=== PATIENT | male | born 1965 | race Caucasian/White ===

== ENCOUNTER 2020-01-23 10:26 | Emergency (ER) | payer MEDICARE, SELFPAY ==
[2020-01-23 10:47] VITALS: BP 151/115; PULSE 102; RESP 16; TEMP 37.2; O2SAT 96; BMI 32.4
--- NOTE | 2020-01-23 10:59 | XR_ITS ---
WS: [id number] CERVICAL SPINE TECHNIQUE: 3 views of the cervical spine CLINICAL INFORMATION: neck pain COMPARISON: None. FINDINGS: Mild cervical curve convex left. Straightening of the normal cervical lordosis. Disc space narrowing worse at C5-6 with anterior hypertrophic changes. Normal prevertebral soft tissues. Normal C1-C2 gay culation. XR/XR cervical spine 3V* [id number] IMPRESSION: Mild spondylitic changes with disc space narrowing worse at C5-6.
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
[2020-01-23 11:44] VITALS: BP 145/85; PULSE 70; RESP 16; O2SAT 97
== END 2020-01-23 11:45 | disposition home or self-care (01) ==
PROVIDERS: Emergency Provider Nurse Practitioner Family
DX: S13.4XXA Sprain of ligaments of cervical spine, initial encounter (principal); V89.2XXA Person injured in unspecified motor-vehicle accident, traffic, initial encounter; F17.210 Nicotine dependence, cigarettes, uncomplicated
CPT/HCPCS: 12345; 72040; 99281; 99282

== ENCOUNTER 2020-02-05 15:28 | Emergency (ER) | payer MEDICARE, SELFPAY ==
[2020-02-05 15:41] VITALS: BP 195/96; PULSE 106; RESP 15; TEMP 37.1; O2SAT 95; BMI 34.2
--- NOTE | 2020-02-05 16:38 | XR_ITS ---
WS: [id number] XR cervical spine 3V* [id number] REASON FOR EXAM: injury FINDINGS: Degenerate changes C5-C6 with anterior spurring seen. Similar findings were noted on a 19 2 020. The odontoid process was normal. The joints of Luschka C5 and 6 show hypertrophic changes. XR/XR cervical spine 3V* [id number] IMPRESSION: Degenerated disc changes with cervical spondylosis C5-C6.
--- NOTE | 2020-02-05 16:38 | XR_ITS ---
WS: [id number] XR thoracic spine 3V* [id number] REASON FOR EXAM: injury FINDINGS: Degenerates spurring anteriorly is noted in the middle thoracic spine. The disc spaces and the vertebral bodies appear to be normal. The cervicothoracic junction was normal. The lamina, pedicle, spinous processes are all straight. XR/XR thoracic spine 3V* [id number] IMPRESSION: Negative thoracic spine series.
--- NOTE | 2020-02-05 16:38 | XR_ITS ---
WS: [id number] XR lumbar spine 2-3V* [id number] REASON FOR EXAM: injury FINDINGS: Degenerate changes off the vertebral bodies of L5 and S1. The remaining disc spaces and vertebral bodies were normal. The lamina, pedicle, transverse processes, and spinous processes are all normal. The lumbosacral angle was normal. XR/XR lumbar spine 2-3V* [id number] IMPRESSION: Degenerate disc changes L5-S1.
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
[2020-02-05] MEDS: ketorolac 30 mg/mL INJ IM (16:57)
[2020-02-05 17:40] VITALS: BP 146/92; PULSE 71; RESP 19; O2SAT 95
== END 2020-02-05 17:40 | disposition home or self-care (01) ==
PROVIDERS: Emergency Provider Emergency Medicine
DX: M54.6 Pain in thoracic spine (principal); S39.012A Strain of muscle, fascia and tendon of lower back, initial encounter; X58.XXXA Exposure to other specified factors, initial encounter; F17.210 Nicotine dependence, cigarettes, uncomplicated
CPT/HCPCS: 12345; 72040; 72072; 72100; 96372; 99281; 99283; J1885

== ENCOUNTER 2021-01-07 11:10 | Outpatient (CLI) | payer MEDICARE, SELFPAY ==
--- NOTE | 2021-01-07 11:18 | XRR_ITS ---
PROCEDURE INFORMATION: Exam: XR Left Knee Exam date and time: 01/07/2021 12:05 PM Age: 55 years old Clinical indication: Pain; Knee; Left; Additional info: Pain in left knee TECHNIQUE: Imaging protocol: XR Left knee. Views: 3 views. COMPARISON: No relevant prior studies available. FINDINGS: Bones/joints: No fracture or other acute bony abnormalities are seen. There are no significant degenerative changes. Soft tissues: Normal. XR/XR knee LT 3V* [id number] IMPRESSION: No significant abnormality in the knee joint.
== END 2021-01-07 11:11 | disposition home or self-care (01) ==
LOC: RAD 11:16
PROVIDERS: Visit Provider Family Medicine
DX: M25.562 Pain in left knee (principal)
CPT/HCPCS: 73562

== ENCOUNTER 2021-01-09 06:49 | Outpatient (CLI) | payer MEDICARE, SELFPAY ==
--- NOTE | 2021-01-09 07:15 | MR_ITS ---
WS: [id number] MRI LEFT KNEE NONCONTRAST TECHNIQUE: Axial PD, coronal PD fat sat, coronal PD, sagittal PD, and sagittal PD fat-sat images obta ined. CLINICAL INFORMATION: L KNE PAIN, LAXITY, SEVERE MEDIAL PAIN COMPARISON: None. FINDINGS: Normal anatomic alignment. No acute fractures. Distal patella and quadriceps tendons are intact. Hype rtrophic patella. Normal ACL and PCL. Mild chronic thinning medial and lateral meniscus. Tiny suprapa tellar effusion. Joint space narrowing worse involving the medial joint compartment. Small amount of subchondral edema involving the medial femoral condyle. Moderate chondromalacia medial joint compartm ent. Small amount of edema along the superficial and deep fibers of the medial collateral ligament consist ent with grade 1-2 injury. MCL is intact. Normal lateral collateral ligament. Soft tissue edema invol ving the medial compartment joint soft tissues. Normal popliteal fossa.Mild chondromalacia patella. N o subchondral edema. Medial and lateral patellar retinacula appear intact. MR/MR knee LT wo con* [id number] IMPRESSION: 1. Normal ACL and PCL. 2. Moderate joint space narrowing medial joint compartment with chondromalacia . Edema involving the medial femoral condyle likely degenerative change or cont usion. 3. Grade 1-2 injury medial collateral ligament which appears intact. 4. Normal lateral collateral ligament. 5. Mild chondromalacia patella. 6. Soft tissue edema along the medial joint compartment soft tissues.
== END 2021-01-09 06:50 | disposition home or self-care (01) ==
LOC: RADSHAW 06:53
PROVIDERS: PCP Family Medicine; Visit Provider Family Medicine
DX: M25.562 Pain in left knee (principal); M22.42 Chondromalacia patellae, left knee; R60.0 Localized edema
CPT/HCPCS: 73721

== ENCOUNTER 2021-11-17 16:40 | Inpatient (IN) | payer MEDICARE, SELFPAY ==
[2021-11-17] VITALS (24 sets, daily range): BP systolic 123–170; BP diastolic 64–124; PULSE 88–106; RESP 12–24; TEMP 36.9–37.9; O2SAT 83–100; BMI 40.7; BMI 43.2
--- NOTE | 2021-11-17 16:45 | XRR_ITS ---
PROCEDURE INFORMATION: Exam: XR Chest Exam date and time: 11/17/2021 4:45 PM Age: 56 years old Clinical indication: Pain; Shortness of breath; Chest pressure; Additional info: Dyspnea TECHNIQUE: Imaging protocol: XR of the chest. Views: 1 view. COMPARISON: CR XR cervical spine 3V* [id number] 02/05/2020 5:15 PM FINDINGS: Limitations: Patient is rotated towards the right. Lungs: Unremarkable. No consolidation. Pleural spaces: Unremarkable. No pleural effusion. No pneumothorax. Heart/Mediastinum: Unremarkable. No cardiomegaly. Bones/joints: Unremarkable. XR/XR chest 1V portable [id number] IMPRESSION: No acute infiltrate
--- NOTE | 2021-11-17 16:47 | W.ED.GENADLT ---
HPI - General Adult General: Chief complaint: Shortness of Breath/Dyspnea Stated complaint: SOB X 2 DAY Time Seen by Provider: 11/17/21 16:43 History of Present Illness: CC: Shortness of breath, fever and generalized weakness HPI: This is a [56yo patient w/ hx of COPD presenting to the ED with malaise, generalized weakness, cough sputum production, N/V/D and fever at home x 3 days. Patient thinks that he was in contact with Covid positive patient of shopping. Since onset of symptoms, has had some shortness of breath and decreased PO intake. NO recent travel. Endorses no sick contacts around. Reports nausea/vomiting and diarrhea. Denies chest pain, diaphoresis, other GI or complaints. Denies any pleuritic chest pain, recent surgery/immobilization/travel, or hematemesis or hx of VTE in the past. EMS was called today, patient received DuoNeb and Solu-Medrol in route with symptomatic improvement in wheezing. Onset: 3 days ago Duration: ongoing for the last 3 days Location: home Severity: moderate Associated symptoms: Reports dyspnea and malaise; Deny chest pain, rash or palpitations Review of Systems Const: Reports: fever(s), body aches, malaise and other (+generalized weakness); Denies: chills Eyes: Denies: change in vision ENMT: Denies: mouth pain Card: Denies: chest pain or palpitations Resp: Reports: dyspnea and productive cough GI: Reports: diarrhea; Denies: abdominal pain : Denies: dysuria Musc: Denies: extremity pain Skin/Breast: Denies: rash or new lesions Neuro: Denies: weakness in extremities Psych: Reports: other (Normal mood) Juan/Lymph: Denies: easy bruising PFS ED PFSH: Medical History (Updated 11/17/21 @ 18:34 by Nahid Georges MD) COPD (chronic obstructive pulmonary disease) Hypothyroid Lumbar radiculopathy, chronic Surgical History (Updated 11/17/21 @ 18:34 by Nahid Georges MD) S/P laminectomy with spinal fusion Family History Father CAD (coronary artery disease) Social History (Updated 11/17/21 @ 18:34 by Nahid Georges MD) Smoking and tobacco status: current every day smoker Alcohol intake: current Alcohol intake frequency: 3 or more drinks per day Substance/Drug Use: current Substance/Drug use type: Marijuana Physical Exam Const: COMMON NORMALS: alert HENMT: COMMON NORMALS: atraumatic HEAD & SCALP: atraumatic MOUTH: moist mucous membranes not abnormal Eye: COMMON NORMALS: EOMs intact bilaterally and conjunctivae normal CONJUNCTIVA: Yes conjunctivae normal Neck/C-Spine: COMMON NORMALS: full ROM and supple Resp: COMMON NORMALS: normal respiratory effort OTHER: +mild expiratory wheezes b/l Cardio: COMMON NORMALS: regular rhythm RATE: tachycardic RHYTHM: regular rhythm GI: COMMON NORMALS: Soft to palpation and non-tender PALPATION: Yes Soft to palpation Extremity: COMMON NORMALS: full ROM Neuro: SENSORIUM/ORIENTATION: Yes alert MOTOR EXAM: No Abnormal motor strength present and Other motor observations present (no focal motor deficits) Psych: COMMON NORMALS: speech normal SPEECH: Yes normal speech MOOD & AFFECT: Yes euthymic mood Course Vital Signs: Vital signs: Vital Signs Temperature 98.8 F 11/18/21 04:00 Pulse Rate 84 11/18/21 09:55 Respiratory Rate 14 11/18/21 09:55 Blood Pressure 146/67 11/18/21 09:55 Pulse Oximetry 100 11/18/21 09:55 MDM - General Adult Medical Decision Making [56]yo patient w/ hx of COPD and smoking presenting to the ED with shortness of breath, cough, diarrhea, N/V, and generalized weakness. Given History, Exam, and Workup presentation most consistent with viral infection.Presentation not consistent with PE, COPD exacerbation, Pneumothorax, TB, Atypical ACS, Esophageal Rupture, Toxic Exposure, Foreign Body Airway Obstruction. Covid negative. Flu positive. Patient is noted to have sodium 119 without any prior baseline. Patient is AAO x3, not confused. Unclear whether this is chronic or acute. Patient admitted to hospital for sodium 119. Patient received DuoNeb and 6 mg of Decadron for presumed Covid coverage and COPD exacerbation. Patient reports symptomatic improvement in wheezing symptoms. Patient is noted to be satting at 90 to 93% on room air. Disposition: admission Lab Data : 11/18/21 05:48 11/18/21 09:51 Radiology Impressions Chest X-Ray 11/17/21 16:45 IMPRESSION: No acute infiltrate Chest CTA 11/17/21 18:38 IMPRESSION: 1. Negative for pulmonary embolus or airspace infiltrate. 2. Large amount of ascites in abdomen. 3. Coronary artery atherosclerotic calcifications. 4. Cholelithiasis 5. Subcutaneous edema over the abdomen. Abdomen/Pelvis CT 11/17/21 19:06 IMPRESSION: 1. Negative for focal acute inflammatory process in the abdomen or pelvis. 2. Coronary artery atherosclerotic calcifications. 3. Liver enlarged. 4. Spleen enlarged at 13.6 cm. 5. Cholelithiasis. 6. Moderate ascites in the abdomen. 7. Subcutaneous edema about the abdomen. Laboratory Results WBC 6.4 10^3/uL (4.0-10.0) 11/17/21 16:50 RBC 3.17 10^6/uL (4.1-5.3) L 11/17/21 16:50 Hgb 11.5 g/dL (11.7-16.6) L 11/17/21 16:50 Hct 32.0 % (42.0-52.0) L 11/17/21 16:50 MCV 100.9 fl (80-94) H 11/17/21 16:50 MCH 36.3 pg (28.0-34.0) H 11/17/21 16:50 MCHC 35.9 g/dL (30.0-36.0) 11/17/21 16:50 RDW 13.7 % (12.1-15.1) 11/17/21 16:50 Plt Count 127 10^3/cmm (130-400) L 11/17/21 16:50 MPV 10.0 fL (7.4-10.4) 11/17/21 16:50 Neut % (Auto) 67.7 % 11/17/21 16:50 Lymph % (Auto) 16.3 % 11/17/21 16:50 [place] % (Auto) 14.6 % 11/17/21 16:50 Eos % (Auto) 0.2 % 11/17/21 16:50 Baso % (Auto) 0.9 % 11/17/21 16:50 Neut # (Auto) 4.32 10^3/uL (1.8-7.7) 11/17/21 16:50 Lymph # (Auto) 1.0 10^3/uL (0.8-4.8) 11/17/21 16:50 [place] # (Auto) 0.9 10^3/uL (0.2-0.9) 11/17/21 16:50 Eos # (Auto) 0.0 10^3/uL (0.0-0.8) 11/17/21 16:50 Baso # (Auto) 0.1 10^3/uL (0.0-0.1) 11/17/21 16:50 Nucleated RBC % (auto) 0 % 11/17/21 16:50 Nucleated RBCs # 0.0 /100WBC 11/17/21 16:50 Sodium 119 mmol/L (136-145) L* 11/17/21 16:50 Potassium 4.1 mmol/L (3.5-5.1) 11/17/21 16:50 Chloride 84 mmol/L (98-107) L 11/17/21 16:50 Carbon Dioxide 27 mmol/L (22-29) 11/17/21 16:50 Anion Gap 12.1 (5-19) 11/17/21 16:50 BUN 4 mg/dL (6-20) L 11/17/21 16:50 Creatinine 0.5 mg/dL (0.7-1.2) L 11/17/21 16:50 GFR Calculation 172.6 mL/min (90-130) H 11/17/21 16:50 Glucose 143 mg/dL (65-115) H 11/17/21 16:50 Estimat Average Glucose 120 11/17/21 16:50 Hemoglobin A1c 5.8 % (4.0-6.0) 11/17/21 16:50 Calculated Osmolality 247 mOsm/kg (285-295) L 11/17/21 16:50 Calcium 7.8 mg/dL (8.5-10.5) L 11/17/21 16:50 Phosphorus 2.1 mg/dL (2.5-4.5) L 11/17/21 16:50 Magnesium 1.3 mg/dL (1.7-2.3) L 11/17/21 16:50 Total Bilirubin 4.0 mg/dL (0.15-1.2) H 11/17/21 16:50 Direct Bilirubin 1.50 mg/dL (0.00-0.30) H 11/17/21 16:50 GGT 99 U/L (8-61) H 11/17/21 16:50 AST 106 U/L (0-40) H 11/17/21 16:50 ALT 28 U/L (0-41) 11/17/21 16:50 Alkaline Phosphatase 133 IU/L (40-130) H 11/17/21 16:50 Troponin T Baseline 21 ng/L (0-15) H 11/17/21 16:50 C-Reactive Protein 10.8 mg/L (0.0-4.9) H 11/17/21 16:50 NT-Pro-B Natriuret Pep 249 pg/mL (0-125) H 11/17/21 16:50 Total Protein 8.7 g/dL (6.6-8.7) 11/17/21 16:50 Albumin 2.3 g/dL (3.5-5.2) L 11/17/21 16:50 Globulin 6.4 g/dL (1.3-4.6) H 11/17/21 16:50 Procalcitonin 0.12 ng/mL (0-0.5) 11/17/21 16:50 TSH 5.67 uIU/mL (0.27-4.20) H 11/17/21 16:50 Random Cortisol 22.29 ug/dL (2.47-19.5) H 11/17/21 16:50 Ethyl Alcohol < 10 mg/dL (0-10) 11/17/21 16:50 Coronavirus 229E (PCR) Not detected (NOT DETECT) 11/17/21 16:50 Hepatitis A IgM Ab Non-reactive (Nonreactive) 11/17/21 16:50 Hep Bs Antigen Non-reactive (Nonreactive) 11/17/21 16:50 Hep B Core IgM Ab Non-reactive (Nonreactive) 11/17/21 16:50 Hepatitis C Antibody Non-reactive (Nonreactive) 11/17/21 16:50 HIV 1&2 Ab & HIV 1 Ag Non-reactive (Non-Reactiv) 11/17/21 16:50 HIV 1&2 Antibody Non-reactive (Non-Reactiv) 11/17/21 16:50 SARS-CoV-2 (PCR) Not detected (NOT DETECT) 11/17/21 16:50 Imaging Data Other Imaging: Radiologist's impression: [facility] [address] [place] [address] XRay Report Signed Patient: Eliezer Reynolds Unit #: [id number] : 1965 Age/Sex: 56 / M ADM Date: 11/17/21 Loc: ER Room/Bed: Attending Dr: Ordering Provider/Ordering MD: Fatoumata Hope MD Date of Service: 11/17/21 Procedure(s): XR chest 1V portable [id number] Accession Number(s): [id number] Report Number: [id number] PROCEDURE INFORMATION: Exam: XR Chest Exam date and time: 11/17/2021 4:45 PM Age: 56 years old Clinical indication: Pain; Shortness of breath; Chest pressure; Additional info: Dyspnea TECHNIQUE: Imaging protocol: XR of the chest. Views: 1 view. COMPARISON: CR XR cervical spine 3V* [id number] 02/05/2020 5:15 PM FINDINGS: Limitations: Patient is rotated towards the right. Lungs: Unremarkable. No consolidation. Pleural spaces: Unremarkable. No pleural effusion. No pneumothorax. Heart/Mediastinum: Unremarkable. No cardiomegaly. Bones/joints: Unremarkable. XR/XR chest 1V portable [id number] IMPRESSION: No acute infiltrate ? Dictated By: Mike Mar Signed By: Mike Mar Signed Date/Time: 11/17/21 1715 DD/ 1645 Discharge Plan Discharge Patient Disposition: Home Clinical Impression: Acute dyspnea, Cough, Fever, Generalized weakness, Diarrhea, Hyponatremia Condition: Stable Discharge Diet: Advance as tolerated Discharge Activity: Increase activity as tolerated Coding Level of Care Code ED Maintenance Technician 2Nd Shift for Chg Fwd Exam Comprehensive
[2021-11-17] MEDS: sodium chloride 0.9% 1,000 ML 999 ML IV (17:04)
[2021-11-17] MEDS: lidocaine 2% viscous 15 ML, aluminum-mag hydrox-simethicon 30 ML, sucralfate oral liq 1 GM PO (17:04)
[2021-11-17] MEDS: acetaminophen 500 mg Tablet 1000 MG PO (17:06)
[2021-11-17 17:09] LABS: Basophils # 0.1 10^3/uL (0.0-0.1); Basophils % 0.9 %; Eosinophils % 0.2 %; Hemoglobin 11.5 g/dL (11.7-16.6); Lymphocytes % 16.3 %; Mean Corpuscular HGB Conc 35.9 g/dL (30.0-36.0); Mean Corpuscular Hemoglobin 36.3 pg (28.0-34.0); Mean Corpuscular Volume 100.9 fl (80-94); Monocytes # 0.9 10^3/uL (0.2-0.9); Monocytes % 14.6 %; Neutrophils # 4.32 10^3/uL (1.8-7.7); Neutrophils % 67.7 %; Nucleated Red Blood Cells % 0 %; Platelet Count 127 10^3/cmm (130-400); Red Blood Count 3.17 10^6/uL (4.1-5.3); Red Cell Distribution Width 13.7 % (12.1-15.1); White Blood Count 6.4 10^3/uL (4.0-10.0)
[2021-11-17] MEDS: ondansetron 2 mg/ML SDV 2 mL 4 MG IVP (17:09)
[2021-11-17] MEDS: dexamethasone 10 mg/mL INJ 6 MG IVP (17:20)
[2021-11-17] MEDS: ipratropium-albuterol 3 mL Neb INHALATION ×3 (17:33)
[2021-11-17 17:44] LABS: Anion Gap 12.1 (5-19); Blood Urea Nitrogen 4 mg/dL (6-20); Calcium 7.8 mg/dL (8.5-10.5); Carbon Dioxide 27 mmol/L (22-29); Chloride 84 mmol/L (98-107); Glomerular Filtration Rate 172.6 mL/min (90-130); Glucose 143 mg/dL (65-115); NT Pro B Type Natriuretic Pept 249 pg/mL (0-125); Osmolality Calculated 247 mOsm/kg (285-295); Potassium 4.1 mmol/L (3.5-5.1)
[2021-11-17 17:51] LABS: Sodium 119 mmol/L (136-145)
--- NOTE | 2021-11-17 17:59 | ECG_ITS ---
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 Measurements Intervals Waterproof Rate: 101 P: 56 KS: 196 QRS: 267 QRSD: 114 T: 51 QT: 371 QTc: 483 Interpretive Statements SINUS TACHYCARDIA RIGHT AXIS DEVIATION [QRS AXIS > 100] PATTERN CONSISTENT WITH PULMONARY DISEASE MODERATE INTRAVENTRICULAR CONDUCTION DELAY [110+ ms QRS DURATION] No previous ECG available for comparison Electronically Signed On 11-17-2021 20:59:25 CDT by Baltazar Michelle M.D. [email or web address]
[2021-11-17] MEDS: sodium chloride 0.9% 1,000 ML 100 ML IV (18:13)
--- NOTE | 2021-11-17 18:23 | PM.HP ---
Providers/Chief Complaint Primary Care Provider: Elizabeth Gagnon MD Chief Complaint: SOB X 2 DAY History of Present Illness Eliezer Reynolds is a 56 year old male with a past medical history of chronic back pain, status post laminectomy, hypothyroidism, history of COPD, current smoker, history of marijuana use, history of alcoholism, who presents [facility] for multiple complaints he tells me He tells me for the last 3 days, he suddenly has felt more short of breath, he does report hemoptysis, increase shortness of breath with exertion, bilateral from edema, increased abdominal distention tension, does report low-grade fevers, has not received COVID vaccine, has not received flu vaccine, no known sick contacts Denies a history of CHF, but does report increased shortness of breath, increased pallor extreme edema, no history of CAD, no chest pain reported Does report history of COPD, history of smoking, is not on inhalers at home, has never seen a health education coordinator Does report a history of alcoholism, at one point he reports drinking more than a sixpack a day, his last alcohol drink was this morning no, no history of alcohol withdrawal Does report a history of elevated blood sugars, he tells me that he does not have a history of diabetes, typically alcohol brings down his blood sugar Denies drinking too much fluid, denies any drug use, has a history of hypothyroidism, taking his medication as prescribed, does take Cymbalta Does report severe lower back pain, increased back pain with range of motion, has a history of back pain with laminectomy is on disability, he tells me that he is primary care physician refuses to give him pain medications Review of Systems Const: Denies: fever(s), chills, fatigue or malaise Eyes: Denies: change in vision or blurry vision ENMT: Denies: nasal congestion Card: Reports: edema; Denies: chest pain, palpitations, irregular heart rhythm or lightheadedness Resp: Reports: dyspnea and non-productive cough GI: Denies: nausea, vomiting, diarrhea, constipation, hematochezia or melena : Denies: flank pain, difficulty urinating, dysuria or urinary frequency Skin/Breast: Denies: rash Neuro: Denies: headache(s), dizziness or vertigo Endo: Denies: polyuria or polydipsia Medications/Allergies Home Medications Medication Instructions Recorded Confirmed Last Taken Type cyclobenzaprine 10 mg tablet 20 mg PO BEDTIME PRN 02/05/20 02/05/20 02/04/20 History duloxetine 30 mg capsule,delayed 30 mg PO DAILY 02/05/20 02/05/20 Unknown History release (Cymbalta) ibuprofen 200 mg tablet 800 mg PO QPM 02/05/20 02/05/20 02/04/20 History levothyroxine 50 mcg tablet 50 mcg PO DAILY 02/05/20 02/05/20 02/05/20 History methocarbamol 750 mg tablet 750 mg PO Q6H #30 tab 02/05/20 Unknown Rx (Robaxin-750) naproxen 500 mg tablet (Naprosyn) 500 mg PO BID PRN #20 tab 02/05/20 Unknown Rx acetaminophen 500 mg tablet 500 mg PO Q6H PRN 5 Days #20 tab 11/17/21 Unknown Rx albuterol sulfate 90 mcg/actuation 2 inh INHALATION Q4H PRN 5 Days 11/17/21 Unknown Rx aerosol inhaler #6.7 g calcium carbonate 1,000 1 tab PO TID PRN 7 Days #21 tab 11/17/21 Unknown Rx mg-simethicone 60 mg chewable tablet (Maalox Advanced) famotidine 20 mg tablet (Pepcid) 20 mg PO BID PRN 10 Days #20 tab 11/17/21 Unknown Rx ondansetron HCl 4 mg tablet 4 mg PO TID PRN 4 Days #12 tab 11/17/21 Unknown Rx (Zofran) Allergies Allergy/AdvReac Type Severity Reaction Status Date / Time Penicillins Allergy Unknown Verified 01/23/20 10:47 PFSH Acute PFSH: Medical History (Updated 11/17/21 @ 18:34 by Nahid Georges MD) COPD (chronic obstructive pulmonary disease) Hypothyroid Lumbar radiculopathy, chronic Surgical History (Updated 11/17/21 @ 18:34 by Nahid Georges MD) S/P laminectomy with spinal fusion Family History Father CAD (coronary artery disease) Social History (Updated 11/17/21 @ 18:34 by Nahid Georges MD) Smoking and tobacco status: current every day smoker Alcohol intake: current Alcohol intake frequency: 3 or more drinks per day Substance/Drug Use: current Substance/Drug use type: Marijuana Vitals/I&O/Wt Last Vital Signs Temp 98.5 F 11/17/21 17:13 Pulse 101 H 11/17/21 17:49 Resp 18 11/17/21 17:33 BP 151/124 11/17/21 17:13 Pulse Ox 92 11/17/21 17:33 Weight last 48 hrs Weight 117.934 kg Physical Exam Const: COMMON NORMALS: no acute distress and patient oriented x3 HENMT: COMMON NORMALS: normocephalic HEAD & SCALP: normocephalic Eye: COMMON NORMALS: Equal, round and reactive pupils present Neck/C-Spine: COMMON NORMALS: no JVD Lymph: LYMPHATIC: no lymphadenopathy noted Resp: COMMON NORMALS: normal respiratory effort, No retractions, No use of accessory muscles and clear to auscultation bilaterally AUSCULTATION: wheezes Cardio: COMMON NORMALS: no JVD, regular rate, regular rhythm, S1 normal heart sound present and S2 normal heart sound present RATE: regular rate RHYTHM: regular rhythm HEART SOUNDS: S1 normal heart sound present and S2 normal heart sound present GI: COMMON NORMALS: no masses INSPECTION: Yes Abdominal wall edema, Yes Anasarca, Yes abdominal distension and Yes Fluid wave present AUSCULTATION: Yes normoactive bowel sounds PALPATION: Yes Soft to palpation and Yes No hepatosplenomegaly present Extremity: COMMON NORMALS: capillary refill normal, no clubbing, cyanosis or edema and no calf tenderness NARRATIVE EXTREMITY EXAM: 2+ pitting edema bilateral extremities Neuro: COMMON NORMALS: patient oriented x3 Psych: COMMON NORMALS: mental status grossly normal Data : 11/17/21 16:50 11/17/21 16:50 A&P Assessment and plan (1) Hypoxia: Status: Acute (2) Hyponatremia: Status: Acute (3) Shortness of breath: Status: Acute (4) Alcoholism: Status: Acute (5) Fever: Status: Acute (6) Generalized weakness: Status: Acute Plan Hypoxia and shortness of breath -Etiology likely secondary to COPD exacerbation -But does have significant fluid overload, abdominal distention, abdominal wall anasarca -No focal pneumonia seen on chest x-ray -Does have complaints of hemoptysis, sudden onset of shortness of breath Plan: -Admit to ICU -Troponin series, BNP -CT angiogram to evaluate for pulmonary emboli -Cardiac echocardiogram -Solu-Medrol 125, followed by 40 every 8 hours, DuoNebs, budesonide, doxycycline -SCDs for DVT prophylaxis, will hold off on Lovenox as complaints of hemoptysis -Full code Hyponatremia -Likely multifactorial from chronic alcoholism, fluid overload, possible CHF? -Clinically does not look dehydrated, has bilateral extreme edema, anasarca, abdominal wall edema -Baseline serum sodium unknown -No headache, no blurry vision, no nausea, no vomiting Plan: -Serum sodium 119 -Patient has already received fluid boluses -Hold off on any intervention -Monitor serum sodium every 4 hours -Look for gradual improvement -We will consider hypertonic saline, but worried for fluid overload -TSH, mag, cortisol, urine studies Abdominal distention -Patient has abdominal distention, concerning for ascites -History of alcoholism -CT scan abdomen pelvis Alcoholism -Reports drinking more than 6 beers a day at a time -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, 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 -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02 Alcoholism F10.20 Fever R50.9 Generalized weakness R53.1
--- NOTE | 2021-11-17 18:38 | CTR_ITS ---
PROCEDURE INFORMATION: Exam: CTA Chest With Contrast Exam date and time: 11/17/2021 6:38 PM Age: 56 years old Clinical indication: Shortness of breath; Patient HX: SOB and weakness x 1 week TECHNIQUE: Imaging protocol: Computed tomographic angiography of the chest with contrast. 3D rendering (Not supervised by radiologist): MIP and/or 3D reconstructed images were created by the technologist. Radiation optimization: All CT scans at this facility use at least one of these dose optimization techniques: automated exposure control; mA and/or kV adjustment per patient size (includes targeted exams where dose is matched to clinical indication); or iterative reconstruction. Contrast material: OMNI 350; Contrast volume: 70 ml; Contrast route: INTRAVENOUS (IV); COMPARISON: CR (CHEST, ) 11/17/2021 3:53 PM RADIATION DOSE METRICS: Total DLP (mGy-cm): 565.77 FINDINGS: Pulmonary arteries: Normal. No pulmonary emboli. Aorta: Unremarkable. No aortic aneurysm. No aortic dissection. Lungs: Unremarkable. No consolidation. No masses. Pleural spaces: Unremarkable. No pneumothorax. No pleural effusion. Heart: Coronary artery atherosclerotic calcifications. Lymph nodes: Unremarkable. No enlarged lymph nodes. Gallbladder and bile ducts: Cholelithiasis Intraperitoneal space: Large amount of ascites in abdomen. Bones/joints: Unremarkable. No acute fracture. Soft tissues: Subcutaneous edema over the abdomen. CT/CT angio chest PE protcl [id number] IMPRESSION: 1. Negative for pulmonary embolus or airspace infiltrate. 2. Large amount of ascites in abdomen. 3. Coronary artery atherosclerotic calcifications. 4. Cholelithiasis 5. Subcutaneous edema over the abdomen.
[2021-11-17 18:39] LABS: Troponin(5th) Baseline 21 ng/L (0-15)
[2021-11-17 18:44] LABS: Magnesium 1.3 mg/dL (1.7-2.3); Phosphorus 2.1 mg/dL (2.5-4.5); Thyroid Stimulating Hormone 5.67 uIU/mL (0.27-4.20)
[2021-11-17 18:46] LABS: Alcohol Level < 10 mg/dL (0-10)
[2021-11-17 18:48] LABS: Alanine Aminotransferase 28 U/L (0-41); Albumin Level 2.3 g/dL (3.5-5.2); Alkaline Phosphatase 133 IU/L (40-130); Aspartate Amino Transferase 106 U/L (0-40); C Reactive Protein 10.8 mg/L (0.0-4.9); Gamma Glutamyl Transferase 99 U/L (8-61); Globulin 6.4 g/dL (1.3-4.6); Total Protein 8.7 g/dL (6.6-8.7)
[2021-11-17 18:49] LABS: Adenovirus Not Detected (NOT DETECT); Chlamydia Pneumoniae Not Detected (NOT DETECT); Coronavirus 229E,HKU1,NL63,OC4 Not Detected (NOT DETECT); Human Metapneumovirus Not Detected (NOT DETECT); Human Rhinovirus/Enterovirus Not Detected (NOT DETECT); Influenza A Detected (NOT DETECT); Influenza A H1 Not Detected (NOT DETECT); Influenza A H1-2009 Not Detected (NOT DETECT); Influenza A H3 Not Detected (NOT DETECT); Influenza B Not Detected (NOT DETECT); Mycoplasma Pneumoniae Not Detected (NOT DETECT); Parainfluenza Virus Type 1 Not Detected (NOT DETECT); Parainfluenza Virus Type 2 Not Detected (NOT DETECT); Parainfluenza Virus Type 3 Not Detected (NOT DETECT); Parainfluenza Virus Type 4 Not Detected (NOT DETECT); Respiratory Syncytial Virus A Not Detected (NOT DETECT); Respiratory Syncytial Virus B Not Detected (NOT DETECT); SARS-COV-2 Not Detected (NOT DETECT)
[2021-11-17 18:55] LABS: Procalcitonin 0.12 ng/mL (0-0.5)
--- NOTE | 2021-11-17 19:06 | CTR_ITS ---
PROCEDURE INFORMATION: Exam: CT Abdomen And Pelvis Without Contrast Exam date and time: 11/17/2021 7:06 PM Age: 56 years old Clinical indication: Patient HX: Abdominal bloating x1 week; Additional info: Abdominal distention TECHNIQUE: Imaging protocol: Computed tomography of the abdomen and pelvis without contrast. Radiation optimization: All CT scans at this facility use at least one of these dose optimization techniques: automated exposure control; mA and/or kV adjustment per patient size (includes targeted exams where dose is matched to clinical indication); or iterative reconstruction. COMPARISON: CR Hip 2-3v RIGHT wwo Pelv* [id number] 09/04/2018 11:12 AM RADIATION DOSE METRICS: Total DLP (mGy-cm): 1371.82 FINDINGS: Heart: Coronary artery atherosclerotic calcifications. Liver: Liver enlarged. Gallbladder and bile ducts: Cholelithiasis. Pancreas: Normal. No ductal dilation. Spleen: Spleen enlarged at 13.6 cm. Adrenal glands: Normal. No mass. Kidneys and ureters: Normal. No hydronephrosis. Stomach and bowel: Unremarkable. No obstruction. No mucosal thickening. Appendix: No evidence of appendicitis. Intraperitoneal space: Moderate ascites in the abdomen. Vasculature: Unremarkable. No abdominal aortic aneurysm. Lymph nodes: Unremarkable. No enlarged lymph nodes. Urinary bladder: Unremarkable as visualized. Reproductive: Unremarkable as visualized. Bones/joints: Unremarkable. No acute fracture. Soft tissues: Subcutaneous edema about the abdomen. CT/CT abdomen pelvis con [id number] IMPRESSION: 1. Negative for focal acute inflammatory process in the abdomen or pelvis. 2. Coronary artery atherosclerotic calcifications. 3. Liver enlarged. 4. Spleen enlarged at 13.6 cm. 5. Cholelithiasis. 6. Moderate ascites in the abdomen. 7. Subcutaneous edema about the abdomen.
--- NOTE | 2021-11-17 19:06 | USCV_ITS ---
Transthoracic Echo Eliezer Reynolds Age: 56 Gender: M : 1965 Exam Date: 11/17/2021 20:23 Ordering Phys: Nahid Georges MD Technologist: Randy Shaikh Exam Location: [facility] – [place] Indication: SoB BP: 154 / 78 HR: 85 Rhythm: Sinus Technical Quality: Adequate MEASUREMENTS (Male / Female) Normal Values 2D ECHO LV Diastolic Diameter PLAX 4.0 cm 4.2 - 5.9 / 3.9 - 5.3 cm LV Systolic Diameter PLAX 2.3 cm IVS Diastolic Thickness 1.2 cm 0.6 - 1.0 / 0.6 - 0.9 cm IVS Systolic Thickness 2.0 cm LVPW Diastolic Thickness 1.5 cm 0.6 - 1.0 / 0.6 - 0.9 cm LVPW Systolic Thickness 2.0 cm LVOT Diameter 2.5 cm LV Ejection Fraction 2D Teich 75.0 % LV Ejection Fraction MOD 2C 53.7 % LV Ejection Fraction 2C AL 53.6 % LA Diameter 3.0 cm LA Width 5.1 cm LA Height 6.3 cm RA Width 4.1 cm RA Height 4.7 cm Aorta at Sinotubular Diameter 2.5 cm M-MODE Aortic Annulus Diameter 2.9 cm LA Ao Ratio MM 1.2 DOPPLER AV Peak Velocity 159.5 cm/s LVOT Peak Velocity 82.0 cm/s AV Area Cont Eq vti 3.1 cm squared AV Area Cont Eq pk 2.4 cm squared MV Peak Velocity 104.0 cm/s MV Area PHT 5.0 cm squared Mitral E to A Ratio 0.8 MV E' Velocity 47.0 cm/s Mitral E to MV E' Ratio 6.5 Mitral E to LV E' Lateral Ratio 6.1 Mitral E to LV E' Septal Ratio 7.0 TR Peak Velocity 328.7 cm/s TR Peak Gradient 43.2 mmHg TR Mean Velocity 200.8 cm/s TR Mean Gradient 23.7 mmHg TR Velocity Time Integral 72.3 cm Right Atrial Pressure 10.0 mmHg Pulmonary Artery Systolic Pressu 53.2 mmHg PV Peak Velocity 139.0 cm/s RV Acceleration Time 0.2 s RV Ejection Time 0.4 s RV AcT/ET 0.6 FINDINGS Left Ventricle Normal left ventricular size. LV systolic function is normal with EF of 55-60%. No regional wall motion abnormalities. Grade 1 diastolic dysfunction Right Ventricle The right ventricle is dilated Right Atrium The right atrium is normal in size. Left Atrium The left atrium is dilated Mitral Valve Structurally normal mitral valve without significant stenosis or prolapse. There is no mitral regurgitation. Aortic Valve Aortic valve is thickened without significant stenosis. There is no aortic regurgitation. Tricuspid Valve Structurally normal tricuspid valve without significant stenosis or regurgitation. Insufficient TR jet to calculate RVSP Pulmonic Valve Not well-visualized Pericardium Normal pericardium without effusion. Aorta Normal ascending aorta dimension. CONCLUSIONS LV systolic function is normal with EF of 55-60% Grade 1 diastolic dysfunction RV is dilated Left atrial enlargement No significant valvular heart disease No comparison studies are available Baltazar Michelle MD (Electronically Signed) Final Date: 19 November 2021 07:21 S
[2021-11-17] MEDS: iohexol 350 mg/mL 100 mL Btl IV (19:11)
[2021-11-17 19:24] LABS: Troponin 5 2HR 18.68 ng/L (0-15)
[2021-11-17 19:26] LABS: Troponin 5 2HR Delta -2.32 ABS# (0-10)
[2021-11-17] MEDS: pantoprazole 40 mg SDV IVP (19:54)
[2021-11-17] MEDS: cloNIDine 0.1 mg Tablet PO (19:58)
--- NOTE | 2021-11-17 19:59 | ECG_ITS ---
[facility] [place] Test Date: 2021-11-17 Pat Name: Eliezer Reynolds Department: Room: ICU03 Gender: Male [employer]: : 1965 Requested By: Nahid Georges Order Number: [id number] Chelsey MD: Baltazar Michelle M.D. Measurements Intervals [place] Rate: 99 P: 68 NJ: 200 QRS: -76 QRSD: 117 T: 66 QT: 388 QTc: 500 Interpretive Statements SINUS RHYTHM PATTERN CONSISTENT WITH PULMONARY DISEASE LEFT ANTERIOR FASCICULAR BLOCK [QRS AXIS <= -45, QR IN I, RS IN II] Compared to ECG 11/17/2021 18:20:05 Left anterior fascicular block now present Sinus tachycardia no longer present Right-axis deviation no longer present Intraventricular conduction delay no longer present Electronically Signed On 11-19-2021 20:29:18 CDT by Baltazar Michelle M.D. [id number]
[2021-11-17] MEDS: magnesium sulfate premix 2 GM/50 ML PIGGYBACK IV (20:00)
[2021-11-17 20:05] LABS: Influenza A Detected (NOT DETECT); Influenza A H1 Not Detected (NOT DETECT); Influenza A H1-2009 Not Detected (NOT DETECT); Influenza A H3 Not Detected (NOT DETECT); Influenza B Not Detected (NOT DETECT); Results from Genmark
[2021-11-17 20:32] LABS: Estmated Average Glucose 120; Hemoglobin A1C 5.8 % (4.0-6.0)
[2021-11-17 20:33] LABS: Blood Urea Nitrogen 5 mg/dL (6-20); Calcium 7.7 mg/dL (8.5-10.5); Carbon Dioxide 23 mmol/L (22-29); Chloride 85 mmol/L (98-107); Glomerular Filtration Rate 223.3 mL/min (90-130); Glucose 147 mg/dL (65-115); Lipase 57 U/L (13-60); Osmolality Calculated 248 mOsm/kg (285-295)
[2021-11-17 20:35] LABS: Sodium 119 mmol/L (136-145)
[2021-11-17 20:42] LABS: Cortisol Random 22.29 ug/dL (2.47-19.5)
[2021-11-17 20:47] LABS: Hepatitis A Antibody IgM Non-Reactive (Nonreactive); Hepatitis B Core IgM Non-Reactive (Nonreactive); Hepatitis B Surface Antigen Non-Reactive (Nonreactive); Hepatitis C Virus Antibody Non-Reactive (Nonreactive)
[2021-11-17 20:48] LABS: HIV 1 & 2 Antibody Non-Reactive (Non-Reactiv); HIV 1 & 2 Antigen Non-Reactive (Non-Reactiv)
[2021-11-17 20:49] LABS: Vitamin B12 1141 pg/mL (232-1245)
[2021-11-17] MEDS: doxycycline 100 MG in sodium chloride 0.9% (plus) 100 ML IV (21:05)
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
--- NOTE | 2021-11-17 22:14 | PC.NURSE ---
Pt found standing at bedside in a puddle of urine. He reports that he woke up and was peeing the bed. Pt alert and oriented. Patient snores very loudly and respirations are irregular when sleeping.
[2021-11-17 23:18] LABS: Troponin 5 6HR 15.57 ng/L (0-15)
[2021-11-17 23:21] LABS: Troponin 5 6HR Delta -5.43 ng/L (0-12)
[2021-11-18] VITALS (91 sets, daily range): BP systolic 111–162; BP diastolic 54–102; PULSE 67–107; RESP 9–37; TEMP 36.8–37.1; O2SAT 69–100
--- NOTE | 2021-11-18 00:41 | PC.NURSE ---
Pt snores loudly. Pt difficult to wake up, requiring shaking and saying name loudly. Pt alert and oriented once awake, but immediately falls back into a deep sleep and begins snoring.
[2021-11-18 01:47] LABS: Blood Urea Nitrogen 6 mg/dL (6-20); Carbon Dioxide 25 mmol/L (22-29); Chloride 87 mmol/L (98-107); Glomerular Filtration Rate 223.3 mL/min (90-130); Glucose 205 mg/dL (65-115); Osmolality Calculated 252 mOsm/kg (285-295)
[2021-11-18 02:03] LABS: Anion Gap 11.4 (5-19); Potassium 4.4 mmol/L (3.5-5.1)
[2021-11-18 02:04] LABS: Sodium 119 mmol/L (136-145)
[2021-11-18 03:31] LABS: Amphetamines Screen Urine Negative (Negative); Barbiturates Screen Urine Negative (Negative); Benzodiazepines Screen Urine Negative (Negative); Cocaine Screen Urine Negative (Negative); Opiate Screen Urine Negative (Negative); PCP Screen Urine Negative (Negative); THC Screen Urine Positive (Negative)
[2021-11-18 06:07] LABS: Basophils % 0.2 %; Hematocrit 35.9 % (42.0-52.0); Hemoglobin 12.4 g/dL (11.7-16.6); Lymphocytes # 0.7 10^3/uL (0.8-4.8); Lymphocytes % 11.9 %; Mean Corpuscular HGB Conc 34.5 g/dL (30.0-36.0); Mean Corpuscular Hemoglobin 36.3 pg (28.0-34.0); Mean Platelet Volume 10.6 fL (7.4-10.4); Monocytes # 0.2 10^3/uL (0.2-0.9); Monocytes % 2.5 %; Neutrophils # 5.06 10^3/uL (1.8-7.7); Neutrophils % 85.1 %; Nucleated Red Blood Cells % 0 %; Platelet Count 100 10^3/cmm (130-400); Red Blood Count 3.42 10^6/uL (4.1-5.3)
[2021-11-18 06:22] LABS: Magnesium 1.8 mg/dL (1.7-2.3); Phosphorus 3.3 mg/dL (2.5-4.5)
[2021-11-18 06:36] LABS: Alanine Aminotransferase 33 U/L (0-41); Albumin Level 2.4 g/dL (3.5-5.2); Alkaline Phosphatase 120 IU/L (40-130); Blood Urea Nitrogen 6 mg/dL (6-20); Calcium 7.4 mg/dL (8.5-10.5); Carbon Dioxide 25 mmol/L (22-29); Chloride 87 mmol/L (98-107); Globulin 6.7 g/dL (1.3-4.6); Glomerular Filtration Rate 139.9 mL/min (90-130); Glucose 220 mg/dL (65-115); Osmolality Calculated 250 mOsm/kg (285-295); Total Bilirubin 3.4 mg/dL (0.15-1.2); Total Protein 9.1 g/dL (6.6-8.7)
[2021-11-18 06:42] LABS: Anion Gap 10.3 (5-19); Aspartate Amino Transferase 98 U/L (0-40); Potassium 4.3 mmol/L (3.5-5.1); Sodium 118 mmol/L (136-145)
[2021-11-18 07:25] LABS: Ammonia 82 umol/L (16-60); Lactate (Lactic Acid level) 3.1 mmol/L (0.5-2.2)
[2021-11-18 07:34] LABS: NT Pro B Type Natriuretic Pept 321 pg/mL (0-125); Procalcitonin 0.08 ng/mL (0-0.5)
[2021-11-18 07:47] LABS: Creatine Phosphokinase 621 U/L (39-308)
[2021-11-18 07:59] LABS: Glucose Point of Care 190 mg/dL (70-110)
[2021-11-18] MEDS: ipratropium-albuterol 3 mL Neb INHALATION ×4 (08:04→20:33)
[2021-11-18] MEDS: budesonide 0.5 mg/2 mL Neb INHALATION ×2 (08:04→20:33)
[2021-11-18] MEDS: doxycycline 100 MG in sodium chloride 0.9% (plus) 100 ML IV ×2 (08:35→19:22)
[2021-11-18] MEDS: lactulose oral liq 20 gm/30 mL UDC PO ×2 (08:35→17:51)
[2021-11-18] MEDS: oseltamivir phosphate 75 mg Capsule PO ×2 (08:35→17:09)
[2021-11-18] MEDS: folic acid 1 mg Tablet PO (08:36)
[2021-11-18] MEDS: thiamine 100 mg Tablet PO (08:37)
[2021-11-18] MEDS: cloNIDine 0.1 mg Tablet PO ×2 (08:37→17:51)
[2021-11-18] MEDS: levothyroxine 50 mcg Tablet PO (08:37)
[2021-11-18] MEDS: multivitamin therapeutic Tablet 1 TAB PO (08:37)
[2021-11-18 11:07] LABS: Anion Gap 10.2 (5-19); Blood Urea Nitrogen 6 mg/dL (6-20); Calcium 7.3 mg/dL (8.5-10.5); Carbon Dioxide 26 mmol/L (22-29); Chloride 87 mmol/L (98-107); Glomerular Filtration Rate 172.6 mL/min (90-130); Glucose 192 mg/dL (65-115); Osmolality Calculated 251 mOsm/kg (285-295); Potassium 4.2 mmol/L (3.5-5.1)
[2021-11-18 11:08] LABS: Sodium 119 mmol/L (136-145)
[2021-11-18 11:21] LABS: Glucose Point of Care 216 mg/dL (70-110)
[2021-11-18 15:08] LABS: Blood Urea Nitrogen 7 mg/dL (6-20); Carbon Dioxide 27 mmol/L (22-29); Chloride 89 mmol/L (98-107); Glomerular Filtration Rate 172.6 mL/min (90-130); Glucose 194 mg/dL (65-115); Osmolality Calculated 255 mOsm/kg (285-295); Sodium 121 mmol/L (136-145)
[2021-11-18 15:21] LABS: Anion Gap 9.7 (5-19); Potassium 4.7 mmol/L (3.5-5.1)
--- NOTE | 2021-11-18 15:49 | PM.CONSULT ---
Providers/Reason For Consult Consulting Physician/Specialty*: Nephrology Reason for Consult*: Hyponatremia Attending Physician: Nahid Georges MD Primary Care Provider: Elizabeth Gagnon MD History of Present Illness History of Present Illness Thank you for consultation, today had the pleasure of reviewing this 56-year-old gentleman for evaluation of hyponatremia. He came in yesterday with symptoms of shortness of breath, bilateral edema, increased abdominal distention, low-grade fever. He was found to have influenza and has been started on Tamiflu. Additionally, his serum sodium is noted to be low at 119 and despite numerous boluses of intravenous fluid has remained at this level. Initial diagnostics including an abdominal and pelvis CT scan demonstrates anasarca in his peripheral tissue, and enlarged liver, moderate ascites. He admits to a history of heavy alcohol use, drinking a case of beer up until a few weeks ago when he cut it down to 8-10 beers a day. He denies any other additional fluid intake in excess. No known history of liver cirrhosis otherwise. He has no history of COPD, chronic smoker. No exposure to thiazide diuretics, narcotic medications prior to hospitalization. At this time we do not have any available urine studies. Serum sodium just increased to 121 this afternoon. TSH noted to be 5.67 Review of Systems Narrative: 12 point review of systems completed per HPI and subjective assessment, this includes Constitutional: No weakness, fatigue Respiratory: SOB on exertion, comfortable at rest CardioVasc: No chest pain, palpitations Gastrointestinal: No nausea, no vomiting Neurological: No seizures, no AMS Derm: No new rashes, lesions or wounds Immunological: No seasonal and no food allergies Medications/Allergies Home Medications Medication Instructions Recorded Confirmed Last Taken Type ibuprofen 200 mg tablet 800 mg PO Q6H PRN 02/05/20 11/18/21 02/04/20 History levothyroxine 50 mcg tablet 50 mcg PO QAM 11/18/21 11/18/21 Unknown History (Euthyrox) Allergies Allergy/AdvReac Type Severity Reaction Status Date / Time Penicillins Allergy Unknown Verified 11/18/21 09:01 Current Medications Generic Name Dose Route Start Last Admin Trade Name Freq PRN Reason Stop Dose Admin Albuterol/Ipratropium 3 ml 11/17/21 20:00 11/18/21 15:19 Ipratropium-Albuterol 3 Ml Neb INHALATION 3 ml QID.RESPIRATORY ABRAHAN Administration Budesonide 0.5 mg 11/17/21 20:00 11/18/21 08:04 Budesonide 0.5 Mg/2 Ml Neb INHALATION 0.5 mg BID.RESPIRATORY ABRAHAN Administration Clonidine HCl 0.1 mg 11/17/21 19:06 11/18/21 08:37 Clonidine 0.1 Mg Tablet PO 0.1 mg Q12H ABRAHAN Administration Folic Acid 1 mg 11/18/21 09:00 11/18/21 08:36 Folic Acid 1 Mg Tablet PO 1 mg DAILY ABRAHAN Administration Doxycycline Hyclate 100 mg/ 100 mls @ 100 mls/hr 11/17/21 19:40 11/18/21 09:35 Sodium Chloride IV Infused Q12H ABRAHAN Infusion Protocol Lactulose 20 gm 11/18/21 08:00 11/18/21 08:35 Lactulose Oral Liq 20 Gm/30 Ml Udc PO 20 gm Q12H ABRAHAN Administration Levothyroxine Sodium 50 mcg 11/18/21 08:00 11/18/21 08:37 Levothyroxine 50 Mcg Tablet PO 50 mcg Q24H ABRAHAN Administration Methylprednisolone Sodium Succinate 40 mg 11/17/21 19:06 11/18/21 11:52 Methylprednisolone Sod Succ 40 Mg/Ml Inj IVP 40 mg Q8H ABRAHAN Administration Multivitamins Therapeutic 1 tab 11/18/21 09:00 11/18/21 08:37 Multivitamin Therapeutic Tablet PO 1 tab DAILY ABRAHAN Administration Oseltamivir Phosphate 75 mg 11/18/21 09:00 11/18/21 08:35 Oseltamivir Phosphate 75 Mg Capsule PO 75 mg BID ABRAHAN Administration Pantoprazole Sodium 40 mg 11/17/21 19:06 11/17/21 19:54 Pantoprazole 40 Mg Sdv IVP 40 mg Q24H ABRAHAN Administration Rifaximin 550 mg 11/18/21 09:00 11/18/21 08:35 Rifaximin 550 Mg Tablet PO 550 mg BID ABRAHAN Administration Protocol Thiamine Mononitrate 100 mg 11/18/21 09:00 11/18/21 08:37 Thiamine 100 Mg Tablet PO 100 mg DAILY ABRAHAN Administration PFSH Acute PFSH: Medical History (Updated 11/17/21 @ 18:34 by Nahid Georges MD) COPD (chronic obstructive pulmonary disease) Hypothyroid Lumbar radiculopathy, chronic Surgical History (Updated 11/17/21 @ 18:34 by Nahid Georges MD) S/P laminectomy with spinal fusion Family History Father CAD (coronary artery disease) Social History (Updated 11/17/21 @ 18:34 by Nahid Georges MD) Smoking and tobacco status: current every day smoker Alcohol intake: current Alcohol intake frequency: 3 or more drinks per day Substance/Drug Use: current Substance/Drug use type: Marijuana Vitals/I&O/Wt Last Vital Signs Temp 98.8 F 11/18/21 04:00 Pulse 77 11/18/21 15:26 Resp 18 11/18/21 15:19 BP 146/77 11/18/21 12:00 Pulse Ox 96 11/18/21 15:19 11/18/21 11/18/21 11/18/21 06:59 14:59 22:59 Intake Total 100 / 1150 460 / 460 Output Total 375 / 375 500 / 500 Balance -275 / 775 -40 / -40 Weight last 48 hrs Weight 125.101 kg Weight 117.934 kg Physical Exam Narrative: Constitutional: Awake, comfortable HEENT: Wet mucosa, no jvp, non icteric Lungs: Bilaterally clear without discernible wheeze, rales in all lung zones CVS: S1 S2, no murmurs Abdo: Soft, BS ok, ascites Ext 4: 2-3+ edema, peripheral perfusion with no cyanosis Neurological: Grossly non-focal Data : 11/18/21 05:48 11/18/21 14:20 A&P Assessment and plan (1) Hyponatremia: Status: Acute Plan 1. Hypervolemic hyponatremia Likely to be multifactorial, from a combination of beer potomania, early liver cirrhosis, COPD. Given hypervolemia, will initiate Lasix and spironolactone twice daily Low-salt intake Limit fluid intake although no need for a specific fluid restriction Increase solute intake i.e. protein with every meal Continue every 6 sodium levels Optimize thyroid function We will complete evaluation with serum and urine osmolality, urine sodium, urine protein/creatinine ratio. Goal increase by 6-8 a day i.e. no higher than 125-127 tomorrow morning. 2. Shortness of breath Likely secondary influenza in the setting of COPD and fluid overload. Currently on Tamiflu, diuretic should help He should quit smoking, continue albuterol inhalers. 3. Hemodynamics appear stable Thank you for consultation, as always a pleasure to follow these patients with you Giorgio Dye MD Nephrology [phone] Patient seen and examined via telemedicine, with the assistance of the bedside RN > 25 min spent in evaluation and mgmt of patient Coding Level of Care Code Acute Trauma Nurse for [facility] Fwd Diagnoses Hyponatremia E87.1
[2021-11-18] MEDS: acetaminophen 325 mg Tablet 650 MG PO (16:26)
[2021-11-18] MEDS: FUROsemide 40 mg Tablet PO (16:26)
[2021-11-18] MEDS: spironolactone 25 mg Tablet PO ×2 (16:26→17:08)
[2021-11-18] MEDS: LORazepam 2 mg Tablet PO ×2 (16:51→23:06)
[2021-11-18] MEDS: propranolol 20 mg Tablet 10 MG PO (17:08)
[2021-11-18] MEDS: sucralfate 1 gm Tablet PO ×2 (17:09→21:14)
--- NOTE | 2021-11-18 17:12 | PM.PN ---
Subjective Subjective: Patient was seen this morning, he tells me that he feels a bit better, he tells me that he really needs to get home, he is taking care of his grandson, his son currently is incarcerated, and currently his grandsons with his neighbors, he worries for him, he still complains of shortness of breath, abdominal distention, no headaches, no blurry vision Vitals/I&O/Wt Last Vital Signs Temp 98.8 F 11/18/21 04:00 Pulse 86 11/18/21 16:30 Resp 14 11/18/21 16:30 BP 111/93 11/18/21 16:30 Pulse Ox 90 11/18/21 16:30 11/18/21 11/18/21 11/18/21 06:59 14:59 22:59 Intake Total 100 / 1150 460 / 460 Output Total 375 / 375 500 / 500 Balance -275 / 775 -40 / -40 Weight last 48 hrs Weight 125.101 kg Weight 117.934 kg Physical Exam Const: COMMON NORMALS: no acute distress and patient oriented x3 Resp: COMMON NORMALS: normal respiratory effort, No retractions, No use of accessory muscles and clear to auscultation bilaterally AUSCULTATION: clear to auscultation bilaterally Cardio: COMMON NORMALS: regular rate, regular rhythm, S1 normal heart sound present and S2 normal heart sound present RATE: regular rate RHYTHM: regular rhythm HEART SOUNDS: S1 normal heart sound present and S2 normal heart sound present GI: INSPECTION: Yes Abdominal wall edema, Yes abdominal distension and Yes Fluid wave present AUSCULTATION: Yes normoactive bowel sounds PERCUSSION: Fluid wave present Extremity: COMMON NORMALS: no pedal edema Neuro: COMMON NORMALS: patient oriented x3 Psych: COMMON NORMALS: mental status grossly normal Data : 11/18/21 05:48 11/18/21 14:20 Micro: Microbiology 11/18/21 05:25 Gram Stain - Final Sputum - Expectorated Sputum A&P Assessment and plan (1) Hypoxia: Status: Acute (2) Hyponatremia: Status: Acute (3) Shortness of breath: Status: Acute (4) Alcoholism: Status: Acute (5) Fever: Status: Acute (6) Generalized weakness: Status: Acute (7) Influenzal pneumonia: Status: Acute (8) Liver cirrhosis: Status: Acute (9) Ascites: Status: Acute (10) COPD exacerbation: Status: Acute Plan Hypoxia and shortness of breath -Etiology likely secondary to COPD exacerbation, influenza A pneumonia -But does have significant fluid overload, abdominal distention, abdominal wall anasarca -No focal pneumonia seen on chest x-ray -Does have complaints of hemoptysis, sudden onset of shortness of breath -CT angiogram negative for pulmonary emboli Plan: -We will moved to general medical floors -Cardiac echocardiogram -Tamiflu -followed by 40 every 8 hours, DuoNebs, budesonide, doxycycline -Follow sputum cultures, blood cultures, urine bacterial antigens -SCDs for DVT prophylaxis, will hold off on Lovenox as complaints of hemoptysis -Full code Hyponatremia -Likely multifactorial from chronic alcoholism, fluid overload, possible CHF? -Clinically does not look dehydrated, has bilateral extreme edema, anasarca, abdominal wall edema -Baseline serum sodium unknown -No headache, no blurry vision, no nausea, no vomiting Plan: -Serum sodium 119 -Patient has already received fluid boluses, discontinue -trial of Lasix, spironolactone -Monitor serum sodium every 4 hours -Look for gradual improvement -TSH mildly elevated Abdominal distention secondary to abdominal ascites -Enlarged liver, large spleen, moderate ascites in abdomen -Patient has abdominal distention, concerning for ascites -History of alcoholism -Paracentesis tomorrow morning, with studies ordered Alcoholism -Reports drinking more than 6 beers a day at a time -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, 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 -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 COPD exacerbation, as above No diagnosis of heart failure does have fluid overload, cardiac echo pending Hypothyroidism, TSH slightly elevated, continue levothyroxine Thrombocytopenia, 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
--- NOTE | 2021-11-18 17:20 | US_ITS ---
WS: [id number] ULTRASOUND ABDOMEN LIMITED CLINICAL INFORMATION: ascites COMPARISON: None. FINDINGS: Four-quadrant abdominal survey. Trace fluid in the LEFT upper quadrant and RIGHT perihepatic. Insuffi cient fluid for paracentesis US/US abdomen limited [id number] IMPRESSION: Trace upper abdominal ascites
[2021-11-18 17:42] LABS: Blood Urea Nitrogen 9 mg/dL (6-20); Calcium 8.2 mg/dL (8.5-10.5); Carbon Dioxide 24 mmol/L (22-29); Chloride 88 mmol/L (98-107); Glomerular Filtration Rate 172.6 mL/min (90-130); Glucose 207 mg/dL (65-115); Osmolality Calculated 255 mOsm/kg (285-295); Sodium 120 mmol/L (136-145)
[2021-11-18 17:45] LABS: Anion Gap 12.7 (5-19); Potassium 4.7 mmol/L (3.5-5.1)
[2021-11-18] MEDS: pantoprazole 40 mg SDV IVP (17:51)
--- NOTE | 2021-11-18 19:50 | PC.NURSE ---
Pt's cigarettes placed in [facility].
[2021-11-18 21:33] LABS: Blood Urea Nitrogen 9 mg/dL (6-20); Calcium 6.3 mg/dL (8.5-10.5); Carbon Dioxide 23 mmol/L (22-29); Chloride 97 mmol/L (98-107); Glucose 170 mg/dL (65-115); Osmolality Calculated 269 mOsm/kg (285-295); Sodium 128 mmol/L (136-145)
--- NOTE | 2021-11-18 23:00 | PC.NURSE ---
Pt set off bed alarm, crawling out of bed after having an incontinent bowel movement. Pt could not tell me the day of the month initially, but then did remember. Pt saying inappropriate things about me partying with him and inviting our spouses. Pt hallucinated that the table crashed into my buttocks. Pt also asked more than once for me to set up the TV to record [employer].
[2021-11-19] VITALS (35 sets, daily range): BP systolic 93–161; BP diastolic 55–98; PULSE 50–91; RESP 0–22; TEMP 36.3–36.9; O2SAT 83–100
--- NOTE | 2021-11-19 00:11 | PC.NURSE ---
Pt resting quietly in bed with eyes closed, snoring loudly.
[2021-11-19 01:26] LABS: Blood Urea Nitrogen 10 mg/dL (6-20); Calcium 8.1 mg/dL (8.5-10.5); Carbon Dioxide 29 mmol/L (22-29); Chloride 89 mmol/L (98-107); Glomerular Filtration Rate 139.9 mL/min (90-130); Glucose 172 mg/dL (65-115); Osmolality Calculated 257 mOsm/kg (285-295); Sodium 122 mmol/L (136-145)
[2021-11-19 01:27] LABS: Anion Gap 8.9 (5-19); Potassium 4.9 mmol/L (3.5-5.1)
--- NOTE | 2021-11-19 02:35 | PC.NURSE ---
Pt very sleepy and snoring loudly. Pt opens eyes and states, what, when shaken, but immediately falls back asleep. I attempted for several minutes to keep patient awake and alert, but ultimately did not feel it was safe to give Lactulose to patient.
[2021-11-19 04:20] LABS: Basophils % 0.1 %; Hematocrit 36.5 % (42.0-52.0); Hemoglobin 12.1 g/dL (11.7-16.6); Lymphocytes # 1.2 10^3/uL (0.8-4.8); Lymphocytes % 7.8 %; Mean Corpuscular HGB Conc 33.2 g/dL (30.0-36.0); Mean Corpuscular Hemoglobin 36.4 pg (28.0-34.0); Mean Corpuscular Volume 109.9 fl (80-94); Mean Platelet Volume 10.1 fL (7.4-10.4); Monocytes # 0.8 10^3/uL (0.2-0.9); Neutrophils # 13.83 10^3/uL (1.8-7.7); Neutrophils % 86.7 %; Nucleated Red Blood Cells % 0 %; Platelet Count 116 10^3/cmm (130-400); Red Blood Count 3.32 10^6/uL (4.1-5.3); Red Cell Distribution Width 14.6 % (12.1-15.1)
[2021-11-19 04:38] LABS: Alanine Aminotransferase 33 U/L (0-41); Albumin Level 2.3 g/dL (3.5-5.2); Alkaline Phosphatase 130 IU/L (40-130); Anion Gap 7.4 (5-19); Aspartate Amino Transferase 90 U/L (0-40); Blood Urea Nitrogen 11 mg/dL (6-20); Calcium 7.9 mg/dL (8.5-10.5); Carbon Dioxide 31 mmol/L (22-29); Chloride 91 mmol/L (98-107); Glomerular Filtration Rate 223.3 mL/min (90-130); Glucose 183 mg/dL (65-115); Osmolality Calculated 262 mOsm/kg (285-295); Potassium 5.4 mmol/L (3.5-5.1); Sodium 124 mmol/L (136-145); Total Bilirubin 2.4 mg/dL (0.15-1.2); Total Protein 9.3 g/dL (6.6-8.7)
[2021-11-19 04:43] LABS: C Reactive Protein 13.1 mg/L (0.0-4.9); Magnesium 1.8 mg/dL (1.7-2.3); Phosphorus 3.3 mg/dL (2.5-4.5)
--- NOTE | 2021-11-19 04:45 | PC.NURSE ---
Pt observed snoring loudly. Pt briefly opens eyes to voice and light touch, but immediately closes them again. Pt found with dirty briefs and bedding. Attempts to get patient to wake up enough to stand unsuccessful. When asked to open eyes and wake up, pt replies, yeah, ok,ok. Pt cleaned and partial linen change performed with pt in the bed.
[2021-11-19 05:10] LABS: Lactate (Lactic Acid level) 0.9 mmol/L (0.5-2.2)
[2021-11-19 05:21] LABS: NT Pro B Type Natriuretic Pept 458 pg/mL (0-125); Procalcitonin 0.07 ng/mL (0-0.5)
[2021-11-19 05:31] LABS: Ammonia 187 umol/L (16-60)
[2021-11-19 05:33] LABS: Creatine Phosphokinase 430 U/L (39-308)
[2021-11-19] MEDS: budesonide 0.5 mg/2 mL Neb INHALATION ×2 (07:25→19:18)
[2021-11-19] MEDS: ipratropium-albuterol 3 mL Neb INHALATION ×4 (07:25→19:18)
--- NOTE | 2021-11-19 07:50 | PC.NURSE ---
Report faxed to [facility]. Report called and given to CELIA Rodrigez.
--- NOTE | 2021-11-19 08:00 | PC.NURSE ---
Pt difficult to wake. He would say he was awake and his eyes were opened while he kept his eyes closed. Will attempt again after rounding on other pts.
[2021-11-19] MEDS: propranolol 20 mg Tablet 10 MG PO (08:04)
[2021-11-19] MEDS: multivitamin therapeutic Tablet 1 TAB PO (08:05)
[2021-11-19] MEDS: thiamine 100 mg Tablet PO (08:05)
[2021-11-19] MEDS: folic acid 1 mg Tablet PO (08:05)
[2021-11-19] MEDS: sucralfate 1 gm Tablet PO ×2 (08:05→19:13)
[2021-11-19] MEDS: FUROsemide 40 mg Tablet PO (08:05)
[2021-11-19] MEDS: levothyroxine 50 mcg Tablet PO (08:05)
[2021-11-19] MEDS: doxycycline 100 MG in sodium chloride 0.9% (plus) 100 ML IV ×2 (08:06→21:57)
[2021-11-19] MEDS: oseltamivir phosphate 75 mg Capsule PO ×2 (08:06→19:13)
[2021-11-19] MEDS: cloNIDine 0.1 mg Tablet PO (08:07)
--- NOTE | 2021-11-19 08:11 | P.PN_ITS ---
Subjective Subjective: Patient was seen and examined this morning, extremely drowsy, unable to hold conversation. Serum sodium has drifted down to 124, likely secondary to Lasix. serum potassium is 5.4, likely secondary to spironolactone use. Both Lasix and spironolactone has been kept discontinued. Ultrasound abdomen was done for for possible paracentesis, no good pocket identified. ABG done this morning: pH 7.35 PCO2 67.9, PO2 65, FiO2:32 %: Patient was placed on BiPAP. Medications: Medication Review Details: Generic Name Dose Route Start Last Admin Trade Name Freq PRN Reason Stop Dose Admin Acetaminophen 650 mg 11/17/21 19:06 11/18/21 16:26 Acetaminophen 32 5 Mg Tablet PO 650 mg Q6H PRN Administration Mild/Mod Pain Or Temp >/= 101 Albuterol/Ipratrop ium 3 ml 11/17/21 20:00 11/19/21 11:40 Ipratropium-Albu terol 3 Ml Neb INHALATION 3 ml QID.RESPIRATORY S CH Administration Budesonide 0.5 mg 11/17/21 20:00 11/19/21 07:25 Budesonide 0.5 M g/2 Ml Neb INHALATION 0.5 mg BID.RESPIRATORY S CH Administration Folic Acid 1 mg 11/18/21 09:00 11/19/21 08:05 Folic Acid 1 Mg Tablet PO 1 mg DAILY ABRAHAN Administration Doxycycline Hyclat e 100 mg/ 100 mls @ 100 mls /hr 11/17/21 19:40 11/19/21 09:50 Sodium Chloride IV Infused Q12H ABRAHAN Infusion Protocol Ceftriaxone Sodium 1,000 mg/ 50 mls @ 100 mls/ hr 11/19/21 08:15 11/19/21 10:20 Sodium Chloride IV Infused Q24H ABRAHAN Infusion Protocol Lactulose 20 gm 11/18/21 17:15 11/19/21 09:08 Lactulose Oral L iq 20 Gm/30 Ml Udc PO 20 gm Q8H ABRAHAN Administration Levothyroxine Sodi um 50 mcg 11/18/21 08:00 11/19/21 08:05 Levothyroxine 50 Mcg Tablet PO 50 mcg Q24H ABRAHAN Administration Lorazepam 2 mg 11/17/21 19:06 11/18/21 23:06 Lorazepam 2 Mg T ablet PO 2 mg Q4H PRN Administration WITHDRAWAL Protocol Methylprednisolone Sodium Succinate 40 mg 11/17/21 19:06 11/19/21 11:50 Methylprednisolo ne Sod Succ 40 Mg/ Ml Inj IVP 40 mg Q8H ABRAHAN Administration Multivitamins Ther apeutic 1 tab 11/18/21 09:00 11/19/21 08:05 Multivitamin The rapeutic Tablet PO 1 tab DAILY ABRAHAN Administration Oseltamivir Phosph ate 75 mg 11/18/21 09:00 11/19/21 08:06 Oseltamivir Phos phate 75 Mg Capsul e PO 75 mg BID ABRAHAN Administration Pantoprazole Sodiu m 40 mg 11/17/21 19:06 11/18/21 17:51 Pantoprazole 40 Mg Sdv IVP 40 mg Q24H ABRAHAN Administration Propranolol HCl 10 mg 11/18/21 18:00 11/19/21 08:04 Propranolol 20 M g Tablet PO 10 mg BID ABRAHAN Administration Rifaximin 550 mg 11/18/21 09:00 11/19/21 08:04 Rifaximin 550 Mg Tablet PO 550 mg BID ABRAHAN Administration Protocol Sucralfate 1 gm 11/18/21 17:00 11/19/21 11:08 Sucralfate 1 Gm Tablet PO Not Given AC&BEDTIME [facility] Thiamine Mononitra te 100 mg 11/18/21 09:00 11/19/21 08:05 Thiamine 100 Mg Tablet PO 100 mg DAILY ABRAHAN Administration Vitals/I&O/Wt Last Vital Signs Temp 97.3 F L 11/19/21 07:30 Pulse 69 11/19/21 07:30 Resp 11 L 11/19/21 07:30 BP 113/79 11/19/21 07:30 Pulse Ox 97 11/19/21 07:30 11/18/21 11/19/21 11/19/21 22:59 06:59 14:59 Intake Total 580 / 1040 Balance 580 / 540 Weight last 48 hrs Weight 123.74 kg Weight 125.101 kg Weight 117.934 kg Physical Exam HENMT: COMMON NORMALS: normocephalic and atraumatic HEAD & SCALP: normocephalic and atraumatic Chest: COMMONS NORMALS: normal inspection of the chest and normal palpation of entire chest wall CHEST: Yes Symmetrical chest wall rise Resp: EFFORT & INSPECTION: Yes symmetric chest movement OTHER: Patient is tachypneic, bilateral extensive wheezing present in both lung field. Cardio: COMMON NORMALS: regular rate, regular rhythm, S1 normal heart sound present, S2 normal heart sound present, No gallops present (Cardio), No murmurs present (Cardio), No rub (Cardio) and Peripheral pulses 2+ throughout RATE: regular rate RHYTHM: regular rhythm HEART SOUNDS: S1 normal heart sound present and S2 normal heart sound present PERIPHERAL PULSES: Peripheral pulses 2+ throughout GI: COMMON NORMALS: Normal to inspection, nondistended, normoactive bowel soun ds present, Soft to palpation, non-tender, No hepatosplenomegaly present and no masses AUSCULTATION: Yes normoactive bowel sounds PALPATION: Yes Soft to palpation and Yes No hepatosplenomegaly present RECTAL EXAM: Yes deferred Extremity: COMMON NORMALS: no clubbing, cyanosis or edema and no pedal edema Data : 11/19/21 03:55 11/19/21 03:55 Micro: Microbiology 11/18/21 05:25 Gram Stain - Final Sputum - Expectorated Sputum A&P Assessment and plan (1) Hyponatremia: Status: Acute (2) Shortness of breath: Status: Acute (3) Alcoholism: Status: Acute (4) Fever: Status: Acute (5) Generalized weakness: Status: Acute (6) Influenzal pneumonia: Status: Acute (7) Liver cirrhosis: Status: Acute (8) Ascites: Status: Acute (9) COPD exacerbation: Status: Acute (10) Respiratory failure with hypoxia and hypercapnia: Status: Acute (11) Acute metabolic encephalopathy: Status: Acute (12) Hyperkalemia: Status: Acute Plan -Acute on chronic hypoxic hypercapnic respiratory failure likely secondary to COPD exacerbation, influenza PNA: Patient complaining of shortness of breath , has history of hemoptysis , currently tachypneic CT angiogram negative for pulmonary emboli 2D echocardiogram: LV systolic function is normal with EF of 55 to 60%, grade 1 diastolic dysfunction RV dilated, no gross valvular heart disease. Sputum Gram stain and culture:GNR Follow blood culture Urine Legionella antigen Bacterial antigen panel Continue Solu-Medrol 40 mg IV every 8 Continue duo nebs Continue budesonide inhaler On Tamiflu Continue ceftriaxone and doxycycline -Continue BiPAP -SCDs for DVT prophylaxis, will hold off on Lovenox as complaints of hemoptysis Hypervolemic hyponatremia: ( chronic alcoholism, fluid overload ) TSH : 5.67 -Clinically does not look dehydrated, has bilateral extreme edema, anasarca, abdominal wall edema -Baseline serum sodium unknown -No headache, no blurry vision, no nausea, no vomiting Plan: -Was on Lasix, spironolactone has been discontinued. -Fluid restriction, -Monitor serum sodium every 4 hours #Acute metabolic encephalopathy: Multifactorial: Hyponatremia, hypercapnia, possible hepatic encephalopathy Currently ammonia this morning is: 187: Possibly hemoconcentration, will repeat ammonia. CT head without contrast: Continue BiPAP Neuro check every 4 hours Aspiration precaution Fall precaution Telemetry monitoring Continue lactulose, if unable to take oral then will have to put either rectal or NG tube. Target for 4-5 bowel movements daily. #Ascites: Likely secondary to chronic alcohol abuse: CT abdomen pelvis wo con: Hepatomegaly , splenomegaly , moderate ascites. Ultrasound abdomen was done for for possible paracentesis, no good pocket identified. Will empirically cover with ceftriaxone for possible SBP. 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 Time Spent in Patient Care: Greater than 35 minutes (>than 50% of time spent in counselling and/or direct pt care on unit) . 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
[2021-11-19] MEDS: spironolactone 25 mg Tablet PO (09:08)
[2021-11-19] MEDS: lactulose oral liq 20 gm/30 mL UDC PO ×3 (09:08→19:16)
--- NOTE | 2021-11-19 09:25 | PC.NURSE ---
Pt transferred to room 104 CSU with all of his belongings. Pt required 2assist to W/C for transfer. Further Verbal report given to CELIA Rodrigez.
[2021-11-19] MEDS: cefTRIAXone 1,000 MG in sodium chloride 0.9% (plus) 50 ML 100 MG IV (09:48)
--- NOTE | 2021-11-19 10:06 | PC.NURSE ---
Patient too tired to eat
[2021-11-19 11:31] LABS: Glucose Point of Care 178 mg/dL (70-110)
--- NOTE | 2021-11-19 11:33 | P.PN_ITS ---
Subjective Subjective: Eliezer is very confused today. Much more so than yesterday. Requires a lot of stimulation to be woken up. Ammonia level is noted to be markedly elevated today as compared to yesterday. He still has significant global edema and obvious ascites. Sodium level is noted to also be improving now quite nicely. Vitals/I&O/Wt Last Vital Signs Temp 98.3 F 11/19/21 09:30 Pulse 54 L 11/19/21 11:12 Resp 18 11/19/21 11:12 BP 110/62 11/19/21 11:12 Pulse Ox 99 11/19/21 11:12 11/18/21 11/19/21 11/19/21 22:59 06:59 14:59 Intake Total 580 / 1040 150 / 150 Balance 580 / 540 150 / 150 Weight last 48 hrs Weight 123.74 kg Weight 125.101 kg Weight 117.934 kg Physical Exam Narrative: Constitutional: Awake, comfortable HEENT: Wet mucosa, no jvp, non icteric Lungs: Bilaterally clear without discernible wheeze, rales in all lung zones CVS: S1 S2, no murmurs Abdo: Soft, BS ok, ascites Ext 4: 2-3+ edema, peripheral perfusion with no cyanosis Neurological: Grossly non-focal Data : 11/19/21 03:55 11/19/21 03:55 Micro: Microbiology 11/18/21 05:25 Gram Stain - Final Sputum - Expectorated Sputum A&P Assessment and plan (1) Hyponatremia: Status: Acute Plan 1. Hypervolemic hyponatremia Likely to be multifactorial, from a combination of beer potomania, early liver cirrhosis, COPD. Sodium levels are increasing into the mid 120 range on combination diuretic therapy. At this time he does have a aspiration has it as he is so drowsy. We will hold diuretics at this time, he did get his diuretics this morning, I will use intermittent intravenous dosing as needed. Goal will be high 120 low 130 tomorrow morning. Given his confusion, he will be naturally fluid restricted and this will also increase his sodium. 2. Shortness of breath Likely secondary influenza in the setting of COPD and fluid overload. Currently on Tamiflu, diuretic should help He should quit smoking, continue albuterol inhalers. 3. Hemodynamics appear stable 4. Confusion Ammonia is much higher today, I wonder if this is also the result of some hemoconcentration from diuretic therapy. He is currently on combination rifaximin and lactulose when he can take this orally. 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
--- NOTE | 2021-11-19 13:11 | PC.NURSE ---
Dr Frey notified that pt is minimally responsive, non verbal and does not follow commands. He came to bedside to assess patient. ABG ordered, will insert ng tube if pt unable to swallow lactulose safely. Waiting to see ABG results
[2021-11-19 13:29] LABS: ABG PH Result 7.35 (7.35-7.45); Alveolar-Arterial Oxygen Gradi 10.5 mmHg (5-10); Base Excess ABG 9.6 mmol/L (-2.0-2.0); Blood Gas Allen Test Pos; Blood Gas Operator Identificat AMH; Blood Gas Sample Site Radial, right; Blood Gas Sample Type Arterial; Carboxyhemoglobin 1.3 %THgb (0.4-20.1); HCO3 ABG 37.4 mmol/L (22-26); HGB O2 Sat 93.6 % (95-100); Ionized Calcium Level - ABG 1.2 mmol/L (1.1-1.4); Methemoglobin < 0.0 % (0.4-1.5); Oxygen Device NC; Oxygen Saturation ABG 93.3; PO2 ABG 65.8 mmHg (80.0-100.0); Potassium Level - ABG 5.5 mmol/L (3.5-5.0); Total Hemoglobin 11.1 g/dL (14-18)
[2021-11-19 13:31] LABS: ABG PCO2 67.9 mmHg (35-45)
--- NOTE | 2021-11-19 14:17 | PC.NURSE ---
dr leblanc notified that pts hr dropping into the 40's. no new orders at this time
[2021-11-19 16:11] LABS: Glucose Point of Care 162 mg/dL (70-110)
[2021-11-19] MEDS: pantoprazole 40 mg SDV IVP (17:23)
--- NOTE | 2021-11-19 19:06 | PC.NURSE ---
Bedside rounding with CELIA Melendrez. Dr Frey in room at this time. Received verbal instruction from Dr Frey to give 0115 dose of lactulose now. Patient is awake presently.
[2021-11-19 20:03] LABS: Glucose Point of Care 177 mg/dL (70-110)
[2021-11-19] MEDS: LORazepam 2 mg/mL INJ 1 mL IVP (20:32)
[2021-11-20] VITALS (25 sets, daily range): BP systolic 120–166; BP diastolic 66–116; PULSE 58–91; RESP 0–30; TEMP 37.1–37.2; O2SAT 80–100
--- NOTE | 2021-11-20 02:07 | PC.NURSE ---
Patient is incontinent of bowel and urine. Cleaned patient. Patient expressed thanks. Will continue to monitor.
[2021-11-20] MEDS: sucralfate 1 gm Tablet PO ×4 (06:22→21:07)
[2021-11-20 06:37] LABS: Glucose Point of Care 166 mg/dL (70-110)
[2021-11-20] MEDS: levothyroxine 50 mcg Tablet PO (08:21)
[2021-11-20] MEDS: propranolol 20 mg Tablet 10 MG PO ×2 (08:22→17:08)
[2021-11-20] MEDS: cefTRIAXone 1,000 MG in sodium chloride 0.9% (plus) 50 ML 100 MG IV (08:22)
[2021-11-20] MEDS: folic acid 1 mg Tablet PO (08:22)
[2021-11-20] MEDS: thiamine 100 mg Tablet PO (08:22)
[2021-11-20] MEDS: multivitamin therapeutic Tablet 1 TAB PO (08:22)
[2021-11-20] MEDS: oseltamivir phosphate 75 mg Capsule PO ×2 (08:39→17:10)
[2021-11-20] MEDS: budesonide 0.5 mg/2 mL Neb INHALATION ×2 (09:00→19:48)
[2021-11-20] MEDS: ipratropium-albuterol 3 mL Neb INHALATION ×4 (09:00→19:48)
--- NOTE | 2021-11-20 09:00 | PC.SOCIAL ---
IMM Update pg 2 of IMM updated and reviewed w/ patient. Copy provided and Copy placed in chart.
[2021-11-20 09:44] LABS: Eosinophils % 0.1 %; Hematocrit 34.6 % (42.0-52.0); Hemoglobin 11.3 g/dL (11.7-16.6); Lymphocytes # 1.3 10^3/uL (0.8-4.8); Mean Corpuscular HGB Conc 32.7 g/dL (30.0-36.0); Mean Corpuscular Hemoglobin 36.2 pg (28.0-34.0); Mean Corpuscular Volume 110.9 fl (80-94); Mean Platelet Volume 10.4 fL (7.4-10.4); Monocytes # 0.5 10^3/uL (0.2-0.9); Monocytes % 4.5 %; Neutrophils # 9.09 10^3/uL (1.8-7.7); Neutrophils % 82.8 %; Nucleated Red Blood Cells % 0 %; Platelet Count 98 10^3/cmm (130-400); Red Blood Count 3.12 10^6/uL (4.1-5.3); Red Cell Distribution Width 14.7 % (12.1-15.1)
[2021-11-20 10:00] LABS: Ammonia 39 umol/L (16-60); Lactate (Lactic Acid level) 1.4 mmol/L (0.5-2.2)
[2021-11-20 10:05] LABS: Alanine Aminotransferase 33 U/L (0-41); Albumin Level 2.4 g/dL (3.5-5.2); Alkaline Phosphatase 109 IU/L (40-130); Anion Gap 7.4 (5-19); Aspartate Amino Transferase 83 U/L (0-40); Blood Urea Nitrogen 17 mg/dL (6-20); Calcium 8.3 mg/dL (8.5-10.5); Carbon Dioxide 33 mmol/L (22-29); Chloride 90 mmol/L (98-107); Globulin 6.6 g/dL (1.3-4.6); Glomerular Filtration Rate 172.6 mL/min (90-130); Glucose 179 mg/dL (65-115); Osmolality Calculated 268 mOsm/kg (285-295); Potassium 4.4 mmol/L (3.5-5.1); Sodium 126 mmol/L (136-145)
[2021-11-20 10:07] LABS: C Reactive Protein 8.2 mg/L (0.0-4.9); Magnesium 1.7 mg/dL (1.7-2.3)
[2021-11-20 10:14] LABS: NT Pro B Type Natriuretic Pept 332 pg/mL (0-125); Procalcitonin 0.07 ng/mL (0-0.5)
--- NOTE | 2021-11-20 10:20 | P.PN_ITS ---
Subjective Subjective: Remains very sleepy today and poorly interactive. Seen on BIPAP. Still encephalopathic. No other new issues. Still has some global edema. Urine incontinence. Hemodynamics look good Medications: Medication Review Details: Generic Name Dose Route Start Last Admin Trade Name Shana PRN Reason Stop Dose Admin Acetaminophen 650 mg 11/17/21 19:06 11/18/21 16:26 Acetaminophen 32 5 Mg Tablet PO 650 mg Q6H PRN Administration Mild/Mod Pain Or Temp >/= 101 Albuterol/Ipratrop ium 3 ml 11/17/21 20:00 11/19/21 11:40 Ipratropium-Albu terol 3 Ml Neb INHALATION 3 ml QID.RESPIRATORY S CH Administration Budesonide 0.5 mg 11/17/21 20:00 11/19/21 07:25 Budesonide 0.5 M g/2 Ml Neb INHALATION 0.5 mg BID.RESPIRATORY S CH Administration Folic Acid 1 mg 11/18/21 09:00 11/19/21 08:05 Folic Acid 1 Mg Tablet PO 1 mg DAILY ABRAHAN Administration Doxycycline Hyclat e 100 mg/ 100 mls @ 100 mls /hr 11/17/21 19:40 11/19/21 09:50 Sodium Chloride IV Infused Q12H ABRAHAN Infusion Protocol Ceftriaxone Sodium 1,000 mg/ 50 mls @ 100 mls/ hr 11/19/21 08:15 11/19/21 10:20 Sodium Chloride IV Infused Q24H ABRAHAN Infusion Protocol Lactulose 20 gm 11/18/21 17:15 11/19/21 09:08 Lactulose Oral L iq 20 Gm/30 Ml Udc PO 20 gm Q8H ABRAHAN Administration Levothyroxine Sodi um 50 mcg 11/18/21 08:00 11/19/21 08:05 Levothyroxine 50 Mcg Tablet PO 50 mcg Q24H ABRAHAN Administration Lorazepam 2 mg 11/17/21 19:06 11/18/21 23:06 Lorazepam 2 Mg T ablet PO 2 mg Q4H PRN Administration WITHDRAWAL Protocol Methylprednisolone Sodium Succinate 40 mg 11/17/21 19:06 11/19/21 11:50 Methylprednisolo ne Sod Succ 40 Mg/ Ml Inj IVP 40 mg Q8H ABRAHAN Administration Multivitamins Ther apeutic 1 tab 11/18/21 09:00 11/19/21 08:05 Multivitamin The rapeutic Tablet PO 1 tab DAILY ABRAHAN Administration Oseltamivir Phosph ate 75 mg 11/18/21 09:00 11/19/21 08:06 Oseltamivir Phos phate 75 Mg Capsul e PO 75 mg BID ABRAHAN Administration Pantoprazole Sodiu m 40 mg 11/17/21 19:06 11/18/21 17:51 Pantoprazole 40 Mg Sdv IVP 40 mg Q24H ABRAHAN Administration Propranolol HCl 10 mg 11/18/21 18:00 11/19/21 08:04 Propranolol 20 M g Tablet PO 10 mg BID ABRAHAN Administration Rifaximin 550 mg 11/18/21 09:00 11/19/21 08:04 Rifaximin 550 Mg Tablet PO 550 mg BID ABRAHAN Administration Protocol Sucralfate 1 gm 11/18/21 17:00 11/19/21 11:08 Sucralfate 1 Gm Tablet PO Not Given AC&BEDTIME [facility] Thiamine Mononitra te 100 mg 11/18/21 09:00 11/19/21 08:05 Thiamine 100 Mg Tablet PO 100 mg DAILY ABRAHAN Administration Vitals/I&O/Wt Last Vital Signs Temp 97.6 F 11/19/21 15:07 Pulse 69 11/20/21 09:07 Resp 18 11/20/21 09:07 BP 166/76 11/20/21 07:10 Pulse Ox 94 11/20/21 09:07 11/19/21 11/20/21 11/20/21 22:59 06:59 14:59 Intake Total 360 / 510 580 / 1090 700 / 700 Balance 360 / 510 580 / 1090 700 / 700 Weight last 48 hrs Weight 123.785 kg Weight 123.74 kg Physical Exam Narrative: Constitutional: Awake, comfortable HEENT: Wet mucosa, no jvp, non icteric Lungs: Bilaterally clear without discernible wheeze, rales in all lung zones CVS: S1 S2, no murmurs Abdo: Soft, BS ok, ascites Ext 4: 2-3+ edema, peripheral perfusion with no cyanosis Neurological: Grossly non-focal Data : 11/20/21 09:24 11/20/21 09:24 Micro: Microbiology 11/18/21 05:25 Gram Stain - Final Sputum - Expectorated Sputum Sputum Culture - Preliminary Gram Negative Rods A&P Assessment and plan (1) Hyponatremia: Status: Acute Plan 1. Hypervolemic hyponatremia Likely to be multifactorial, from a combination of beer potomania, early liver cirrhosis, COPD. Sodium levels are increasing into the mid 120 range Lasix 40mg ivp x 1 today Given his confusion, he will be naturally fluid restricted and this will also increase his sodium. 2. Shortness of breath Likely secondary influenza in the setting of COPD and fluid overload. Currently on Tamiflu, diuretic should help He should quit smoking, continue albuterol inhalers. BIPAP on board 3. Hemodynamics appear stable 4. Confusion Hepatic encephalopathy being treated and now on BIPAP, per medical team Thank you for consultation, as always a pleasure to follow these patients with you Giorgio Dye MD Nephrology [phone] Patient seen and examined via telemedicine, with the assistance of the bedside RN > 25 min spent in evaluation and mgmt of patient Attestations Medical Necessity Statement*: eval for hyponatremia Coding Level of Care Code Acute Manager Generation for [facility] Diagnoses Hyponatremia E87.1
[2021-11-20 10:47] LABS: Creatine Phosphokinase 429 U/L (39-308)
[2021-11-20] MEDS: FUROsemide 10 mg/mL SDV 4mL 40 MG IVP (10:59)
[2021-11-20 11:00] LABS: Glucose Point of Care 157 mg/dL (70-110)
[2021-11-20] MEDS: doxycycline 100 MG in sodium chloride 0.9% (plus) 100 ML IV (11:00)
--- NOTE | 2021-11-20 14:07 | P.PN_ITS ---
Subjective Subjective: Patient was seen and examined today, still very drowsy and lethargic.Serum sodium has improved. Medications: Medication Review Details: Generic Name Dose Route Start Last Admin Trade Name Shana PRN Reason Stop Dose Admin Acetaminophen 650 mg 11/17/21 19:06 11/18/21 16:26 Acetaminophen 32 5 Mg Tablet PO 650 mg Q6H PRN Administration Mild/Mod Pain Or Temp >/= 101 Albuterol/Ipratrop ium 3 ml 11/17/21 20:00 11/19/21 11:40 Ipratropium-Albu terol 3 Ml Neb INHALATION 3 ml QID.RESPIRATORY S [facility] Administration Budesonide 0.5 mg 11/17/21 20:00 11/19/21 07:25 Budesonide 0.5 M g/2 Ml Neb INHALATION 0.5 mg BID.RESPIRATORY S CH Administration Folic Acid 1 mg 11/18/21 09:00 11/19/21 08:05 Folic Acid 1 Mg Tablet PO 1 mg DAILY ABRAHAN Administration Doxycycline Hyclat e 100 mg/ 100 mls @ 100 mls /hr 11/17/21 19:40 11/19/21 09:50 Sodium Chloride IV Infused Q12H ABRAHAN Infusion Protocol Ceftriaxone Sodium 1,000 mg/ 50 mls @ 100 mls/ hr 11/19/21 08:15 11/19/21 10:20 Sodium Chloride IV Infused Q24H ABRAHAN Infusion Protocol Lactulose 20 gm 11/18/21 17:15 11/19/21 09:08 Lactulose Oral L iq 20 Gm/30 Ml Udc PO 20 gm Q8H ABRAHAN Administration Levothyroxine Sodi um 50 mcg 11/18/21 08:00 11/19/21 08:05 Levothyroxine 50 Mcg Tablet PO 50 mcg Q24H ABRAHAN Administration Lorazepam 2 mg 11/17/21 19:06 11/18/21 23:06 Lorazepam 2 Mg T ablet PO 2 mg Q4H PRN Administration WITHDRAWAL Protocol Methylprednisolone Sodium Succinate 40 mg 11/17/21 19:06 11/19/21 11:50 Methylprednisolo ne Sod Succ 40 Mg/ Ml Inj IVP 40 mg Q8H ABRAHAN Administration Multivitamins Ther apeutic 1 tab 11/18/21 09:00 11/19/21 08:05 Multivitamin The rapeutic Tablet PO 1 tab DAILY ABRAHAN Administration Oseltamivir Phosph ate 75 mg 11/18/21 09:00 11/19/21 08:06 Oseltamivir Phos phate 75 Mg Capsul e PO 75 mg BID ABRAHAN Administration Pantoprazole Sodiu m 40 mg 11/17/21 19:06 11/18/21 17:51 Pantoprazole 40 Mg Sdv IVP 40 mg Q24H ABRAHAN Administration Propranolol HCl 10 mg 11/18/21 18:00 11/19/21 08:04 Propranolol 20 M g Tablet PO 10 mg BID ABRAHAN Administration Rifaximin 550 mg 11/18/21 09:00 11/19/21 08:04 Rifaximin 550 Mg Tablet PO 550 mg BID ABRAHAN Administration Protocol Sucralfate 1 gm 11/18/21 17:00 11/19/21 11:08 Sucralfate 1 Gm Tablet PO Not Given AC&[facility]ED[facility] Thiamine Mononitra te 100 mg 11/18/21 09:00 11/19/21 08:05 Thiamine 100 Mg Tablet PO 100 mg DAILY ABRAHAN Administration Vitals/I&O/Wt Last Vital Signs Temp 98.9 F 11/20/21 12:00 Pulse 75 11/20/21 12:28 Resp 18 11/20/21 12:28 BP 148/116 11/20/21 12:00 Pulse Ox 96 11/20/21 12:28 11/19/21 11/20/21 11/20/21 22:59 06:59 14:59 Intake Total 360 / 510 580 / 1090 925 / 925 Balance 360 / 510 580 / 1090 925 / 925 Weight last 48 hrs Weight 123.785 kg Weight 123.74 kg Physical Exam Const: COMMON NORMALS: patient oriented x3 HENMT: COMMON NORMALS: normocephalic and atraumatic HEAD & SCALP: normocephalic and atraumatic Chest: CHEST: Yes Symmetrical chest wall rise Resp: EFFORT & INSPECTION: Yes symmetric chest movement OTHER: bilateral expiratory wheezing present in both lung field. Cardio: COMMON NORMALS: regular rate, regular rhythm, S1 normal heart sound present, S2 normal heart sound present, No gallops present (Cardio), No murmurs present (Cardio), No rub (Cardio) and Peripheral pulses 2+ throughout RATE: regular rate RHYTHM: regular rhythm HEART SOUNDS: S1 normal heart sound present and S2 normal heart sound present PERIPHERAL PULSES: Peripheral pulses 2+ throughout GI: COMMON NORMALS: Normal to inspection, nondistended, normoactive bowel sounds present, Soft to palpation, non-tender, No hepatosplenomegaly present and no masses AUSCULTATION: Yes normoactive bowel sounds PALPATION: Yes Soft to palpation and Yes No hepatosplenomegaly present RECTAL EXAM: Yes deferred Extremity: OTHER: 2+ bilateral lower extremity edema present Neuro: COMMON NORMALS: patient oriented x3 Urinary Catheter Management: Flores: Cath Placed During This Visit: yes Urinary Catheter Date of Insertion: 11/20/21 Urinary Catheter Time of Insertion: 10:50 Data : 11/21/21 05:19 11/21/21 05:19 Micro: Microbiology 11/18/21 05:25 Gram Stain - Final Sputum - Expectorated Sputum Sputum Culture - Final Pseudomonas aeruginosa A&P Assessment and plan (1) Hyponatremia: Status: Acute (2) Shortness of breath: Status: Acute (3) Alcoholism: Status: Acute (4) Fever: Status: Acute (5) Generalized weakness: Status: Acute (6) Influenzal pneumonia: Status: Acute (7) Liver cirrhosis: Status: Acute (8) Ascites: Status: Acute (9) COPD exacerbation: Status: Acute (10) Respiratory failure with hypoxia and hypercapnia: Status: Acute (11) Acute metabolic encephalopathy: Status: Acute (12) Hyperkalemia: Status: Acute Plan -Acute on chronic hypoxic hypercapnic respiratory failure likely secondary to COPD exacerbation, influenza PNA: Patient complaining of shortness of breath , has history of hemoptysis , currently tachypneic CT angiogram negative for pulmonary emboli 2D echocardiogram: LV systolic function is normal with EF of 55 to 60%, grade 1 diastolic dysfunction RV dilated, no gross valvular heart disease. Sputum Gram stain and culture:GNR: Pseudomonas.A Follow blood culture Urine Legionella antigen: Bacterial antigen panel Continue Solu-Medrol 60 mg IV every 12 Continue duo nebs Continue budesonide inhaler On Tamiflu On Ceftriaxone and Levofloxacin -Continue BiPAP -SCDs for DVT prophylaxis, will hold off on Lovenox as complaints of hemoptysis Hypervolemic hyponatremia: ( chronic alcoholism, fluid overload ) TSH : 5.67 -Clinically does not look dehydrated, has bilateral extreme edema, anasarca, abdominal wall edema -Baseline serum sodium unknown -No headache, no blurry vision, no nausea, no vomiting Plan: -Was on Lasix, spironolactone has been discontinued. -Fluid restriction, -Monitor serum sodium every 4 hours #Acute metabolic encephalopathy: Multifactorial: Hyponatremia, hypercapnia, possible hepatic encephalopathy Ammonia.39 Continue BiPAP Neuro check every 4 hours Aspiration precaution Fall precaution Telemetry monitoring Continue lactulose 20 MG PO Q8H Target for 4-5 bowel movements daily. #Ascites: Likely secondary to chronic alcohol abuse: CT abdomen pelvis wo con: Hepatomegaly , splenomegaly , moderate ascites. Ultrasound abdomen was done for for possible paracentesis, no good pocket identified. Will empirically cover with ceftriaxone for possible SBP. 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 Coding Level of Care Code Acute News Agent for g Fwd Exam Detailed Diagnoses Hyponatremia E87.1 Shortness of breath R06.02 Alcoholism F10.20 Fever R50.9 Generalized weakness R53.1 Influenzal pneumonia J11.00 Liver cirrhosis K74.60 Ascites R18.8 COPD exacerbation J44.1 Respiratory failure with hypoxia and hypercapnia J96.91; J96.92 Acute metabolic encephalopathy G93.41 Hyperkalemia E87.5
[2021-11-20] MEDS: levofloxacin-dextrose 5 % 750 MG/150 ML PREMIX 100 MG IV (14:40)
[2021-11-20 16:28] LABS: Potassium, Radom Urine 19 mmol/L; Urine Random Chloride 140 mmol/L; Urine Random Sodium 103 mmol/L
[2021-11-20 16:46] LABS: Glucose Point of Care 288 mg/dL (70-110)
[2021-11-20] MEDS: lactulose oral liq 20 gm/30 mL UDC PO (17:09)
[2021-11-20] MEDS: pantoprazole 40 mg SDV IVP (19:26)
--- NOTE | 2021-11-20 20:11 | PC.NURSE ---
Shift Note Frequent safety and comfort rounds continue. Orders and/or nursing care completed as indicated. Patient monitored for response to intervention and treatment(s). Education provided includes fluid restrictions, IV lasix for diurese and reddy cath placemement and catui. Patient and/or medical detail representative needs reinforcement. Updated mother. Will continue to monitor.
[2021-11-20 21:14] LABS: Bilirubin Urine Neg (Negative); Blood Urine 2+ (Negative); Glucose Urine UA Norm (Normal); Ketones Urine Negative (Negative); Leukocyte Esterase Urine Negative (Negative); Nitrate Urine Negative (Negative); Protein Urine Neg (Negative); Urine Appearance Clear (CLEAR); Urine Color Yellow (Yellow); Urobilinogen Urine Neg (Negative); pH Urine 5 (5-7)
[2021-11-20 21:15] LABS: Add Urine Culture? No; Add Urine Microscopic? YES; Bacteria Urine TRACE /hpf; Squamous Epithelial Cell Urine RARE /hpf (0-5); WBC Urine 0-4 /hpf (0-5)
[2021-11-20 21:16] LABS: Urine Creatinine 14 mg/dL (39-259); Urine Random Sodium 100 mmol/L
[2021-11-20 21:27] LABS: Eosinophil Urine No Eosinophils Seen; Urine Eosinophil Count 0 (0-0)
[2021-11-20] MEDS: LORazepam 2 mg/mL INJ 1 mL IVP (21:53)
[2021-11-21] VITALS (22 sets, daily range): BP systolic 140–165; BP diastolic 69–98; PULSE 59–84; RESP 12–25; TEMP 36.7–37.2; O2SAT 86–99; BMI 42.3
[2021-11-21 05:43] LABS: Basophils % 0.1 %; Hematocrit 33.8 % (42.0-52.0); Hemoglobin 11.5 g/dL (11.7-16.6); Lymphocytes # 1.2 10^3/uL (0.8-4.8); Lymphocytes % 13.3 %; Mean Corpuscular Hemoglobin 37.1 pg (28.0-34.0); Mean Platelet Volume 10.4 fL (7.4-10.4); Monocytes # 0.4 10^3/uL (0.2-0.9); Monocytes % 4.1 %; Neutrophils # 7.18 10^3/uL (1.8-7.7); Nucleated Red Blood Cells % 0 %; Platelet Count 96 10^3/cmm (130-400); Red Cell Distribution Width 14.6 % (12.1-15.1); White Blood Count 8.9 10^3/uL (4.0-10.0)
[2021-11-21 06:01] LABS: Alanine Aminotransferase 38 U/L (0-41); Albumin Level 2.3 g/dL (3.5-5.2); Alkaline Phosphatase 153 IU/L (40-130); Anion Gap 6.9 (5-19); Aspartate Amino Transferase 75 U/L (0-40); Blood Urea Nitrogen 12 mg/dL (6-20); Calcium 8.3 mg/dL (8.5-10.5); Carbon Dioxide 36 mmol/L (22-29); Chloride 89 mmol/L (98-107); Globulin 5.9 g/dL (1.3-4.6); Glomerular Filtration Rate 139.9 mL/min (90-130); Glucose 209 mg/dL (65-115); Osmolality Calculated 272 mOsm/kg (285-295); Potassium 3.9 mmol/L (3.5-5.1); Sodium 128 mmol/L (136-145); Total Protein 8.2 g/dL (6.6-8.7)
[2021-11-21] MEDS: budesonide 0.5 mg/2 mL Neb INHALATION ×2 (07:51→20:07)
[2021-11-21] MEDS: ipratropium-albuterol 3 mL Neb INHALATION ×4 (07:51→20:07)
--- NOTE | 2021-11-21 08:38 | PM.PN ---
Subjective Subjective: Patient was seen and examined today, much more alert awake and oriented. Still has significant wheezing.Serum sodium is slowly improving: Currently serum sodium is 128. Worked with physical therapy today, will benefit from home exercise program. got Lasix 40 mg p.o. one-time dose today. Medications: Medication Review Details: Generic Name Dose Route Start Last Admin Trade Name Freq PRN Reason Stop Dose Admin Acetaminophen 650 mg 11/17/21 19:06 11/18/21 16:26 Acetaminophen 32 5 Mg Tablet PO 650 mg Q6H PRN Administration Mild/Mod Pain Or Temp >/= 101 Albuterol/Ipratrop ium 3 ml 11/17/21 20:00 11/19/21 11:40 Ipratropium-Albu terol 3 Ml Neb INHALATION 3 ml QID.RESPIRATORY S CH Administration Budesonide 0.5 mg 11/17/21 20:00 11/19/21 07:25 Budesonide 0.5 M g/2 Ml Neb INHALATION 0.5 mg BID.RESPIRATORY S CH Administration Folic Acid 1 mg 11/18/21 09:00 11/19/21 08:05 Folic Acid 1 Mg Tablet PO 1 mg DAILY ABRAHAN Administration Doxycycline Hyclat e 100 mg/ 100 mls @ 100 mls /hr 11/17/21 19:40 11/19/21 09:50 Sodium Chloride IV Infused Q12H ABRAHAN Infusion Protocol Ceftriaxone Sodium 1,000 mg/ 50 mls @ 100 mls/ hr 11/19/21 08:15 11/19/21 10:20 Sodium Chloride IV Infused Q24H ABRAHAN Infusion Protocol Lactulose 20 gm 11/18/21 17:15 11/19/21 09:08 Lactulose Oral L iq 20 Gm/30 Ml Udc PO 20 gm Q8H ABRAHAN Administration Levothyroxine Sodi um 50 mcg 11/18/21 08:00 11/19/21 08:05 Levothyroxine 50 Mcg Tablet PO 50 mcg Q24H ABRAHAN Administration Lorazepam 2 mg 11/17/21 19:06 11/18/21 23:06 Lorazepam 2 Mg T ablet PO 2 mg Q4H PRN Administration WITHDRAWAL Protocol Methylprednisolone Sodium Succinate 40 mg 11/17/21 19:06 11/19/21 11:50 Methylprednisolo ne Sod Succ 40 Mg/ Ml Inj IVP 40 mg Q8H ABRAHAN Administration Multivitamins Ther apeutic 1 tab 11/18/21 09:00 11/19/21 08:05 Multivitamin The rapeutic Tablet PO 1 tab DAILY ABRAHAN Administration Oseltamivir Phosph ate 75 mg 11/18/21 09:00 11/19/21 08:06 Oseltamivir Phos phate 75 Mg Capsul e PO 75 mg BID [facility] Administration Pantoprazole Sodiu m 40 mg 11/17/21 19:06 11/18/21 17:51 Pantoprazole 40 Mg Sdv IVP 40 mg Q24H ABRAHAN Administration Propranolol HCl 10 mg 11/18/21 18:00 11/19/21 08:04 Propranolol 20 M g Tablet PO 10 mg BID ABRAHAN Administration Rifaximin 550 mg 11/18/21 09:00 11/19/21 08:04 Rifaximin 550 Mg Tablet PO 550 mg BID [facility] Administration Protocol Sucralfate 1 gm 11/18/21 17:00 11/19/21 11:08 Sucralfate 1 Gm Tablet PO Not Given AC&BEDTIME [facility] Thiamine Mononitra te 100 mg 11/18/21 09:00 11/19/21 08:05 Thiamine 100 Mg Tablet PO 100 mg DAILY ABRAHAN Administration Vitals/I&O/Wt Last Vital Signs Temp 98.9 F 11/21/21 07:26 Pulse 72 11/21/21 08:02 Resp 18 11/21/21 07:50 BP 152/69 11/21/21 07:26 Pulse Ox 94 11/21/21 07:50 11/20/21 11/21/21 11/21/21 22:59 06:59 14:59 Intake Total 750 / 1775 0 / 1775 Output Total 1300 / 2700 Balance -550 / -925 0 / -925 Weight last 48 hrs Weight 122.47 kg Weight 123.785 kg Physical Exam Const: COMMON NORMALS: patient oriented x3 HENMT: COMMON NORMALS: normocephalic and atraumatic HEAD & SCALP: normocephalic and atraumatic Chest: COMMONS NORMALS: normal inspection of the chest and normal palpation of entire chest wall CHEST: Yes Symmetrical chest wall rise Resp: COMMON NORMALS: normal respiratory effort, No retractions, No use of accessory muscles and clear to auscultation bilaterally EFFORT & INSPECTION: Yes symmetric chest movement AUSCULTATION: clear to auscultation bilaterally OTHER: bilateral expiratory wheezing present in both lung field. Cardio: COMMON NORMALS: regular rate, regular rhythm, S1 normal heart sound present, S2 normal heart sound present, No gallops present (Cardio), No murmurs present (Cardio), No rub (Cardio) and Peripheral pulses 2+ throughout RATE: regular rate RHYTHM: regular rhythm HEART SOUNDS: S1 normal heart sound present and S2 normal heart sound present PERIPHERAL PULSES: Peripheral pulses 2+ throughout GI: COMMON NORMALS: Normal to inspection, nondistended, normoactive bowel sounds present, Soft to palpation, non-tender, No hepatosplenomegaly present and no masses AUSCULTATION: Yes normoactive bowel sounds PALPATION: Yes Soft to palpation and Yes No hepatosplenomegaly present RECTAL EXAM: Yes deferred Extremity: COMMON NORMALS: no clubbing, cyanosis or edema and no pedal edema OTHER: 2+ bilateral lower extremity edema present Neuro: COMMON NORMALS: patient oriented x3 Urinary Catheter Management: Flores: Cath Placed During This Visit: yes Reason for Continuing Indwelling Catheter: Acute Urinary Retention or Obstruction Urinary Catheter Date of Insertion: 11/20/21 Urinary Catheter Time of Insertion: 10:50 Data : 11/21/21 05:19 11/21/21 05:19 Micro: Microbiology 11/21/21 05:23 Blood Culture - Preliminary Blood SPECIMEN COLLECTED 11/21/21 05:19 Blood Culture - Preliminary Blood SPECIMEN COLLECTED 11/20/21 14:15 Legionella Urinary Antigen - Final Urine,Clean Catch 11/18/21 05:25 Gram Stain - Final Sputum - Expectorated Sputum Sputum Culture - Final Pseudomonas aeruginosa A&P Assessment and plan (1) Hyponatremia: Status: Acute (2) Shortness of breath: Status: Acute (3) Alcoholism: Status: Acute (4) Fever: Status: Acute (5) Generalized weakness: Status: Acute (6) Influenzal pneumonia: Status: Acute (7) Liver cirrhosis: Status: Acute (8) Ascites: Status: Acute (9) COPD exacerbation: Status: Acute (10) Respiratory failure with hypoxia and hypercapnia: Status: Acute (11) Acute metabolic encephalopathy: Status: Acute (12) Hyperkalemia: Status: Acute Plan -Acute on chronic hypoxic hypercapnic respiratory failure likely secondary to COPD exacerbation, influenza PNA: Patient complaining of shortness of breath , has history of hemoptysis , currently tachypneic CT angiogram negative for pulmonary emboli 2D echocardiogram: LV systolic function is normal with EF of 55 to 60%, grade 1 diastolic dysfunction RV dilated, no gross valvular heart disease. Sputum Gram stain and culture:GNR: Pseudomonas.A Follow blood culture Urine Legionella antigen: Bacterial antigen panel Continue Solu-Medrol 60 mg IV every 12 Continue duo nebs Continue budesonide inhaler On Tamiflu On Ceftriaxone and Levofloxacin -Continue BiPAP -SCDs for DVT prophylaxis, will hold off on Lovenox as complaints of hemoptysis Hypervolemic hyponatremia: ( chronic alcoholism, fluid overload ) TSH : 5.67 -Clinically does not look dehydrated, has bilateral extreme edema, anasarca, abdominal wall edema -Baseline serum sodium unknown -No headache, no blurry vision, no nausea, no vomiting Plan: -Was on Lasix, spironolactone has been discontinued. -Fluid restriction, -Monitor serum sodium every 4 hours #Acute metabolic encephalopathy: Multifactorial: Hyponatremia, hypercapnia, possible hepatic encephalopathy Ammonia.39 Continue BiPAP Neuro check every 4 hours Aspiration precaution Fall precaution Telemetry monitoring Continue lactulose 20 MG PO Q8H Target for 4-5 bowel movements daily. #Ascites: Likely secondary to chronic alcohol abuse: CT abdomen pelvis wo con: Hepatomegaly , splenomegaly , moderate ascites. Ultrasound abdomen was done for for possible paracentesis, no good pocket identified. Will empirically cover with ceftriaxone for possible SBP. 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 Time Spent in Patient Care: Greater than 35 minutes (>than 50% of time spent in counselling and/or direct pt care on unit). Coding Level of Care Code Acute Plant Director for [facility] Fwd Exam Detailed Diagnoses Hyponatremia E87.1 Shortness of breath R06.02 Alcoholism F10.20 Fever R50.9 Generalized weakness R53.1 Influenzal pneumonia J11.00 Liver cirrhosis K74.60 Ascites R18.8 COPD exacerbation J44.1 Respiratory failure with hypoxia and hypercapnia J96.91; J96.92 Acute metabolic encephalopathy G93.41 Hyperkalemia E87.5
[2021-11-21] MEDS: multivitamin therapeutic Tablet 1 TAB PO (09:31)
[2021-11-21] MEDS: levothyroxine 50 mcg Tablet PO (09:31)
[2021-11-21] MEDS: thiamine 100 mg Tablet PO (09:31)
[2021-11-21] MEDS: folic acid 1 mg Tablet PO (09:32)
[2021-11-21] MEDS: propranolol 20 mg Tablet 10 MG PO ×2 (09:32→18:07)
[2021-11-21] MEDS: sucralfate 1 gm Tablet PO ×3 (09:33→19:46)
[2021-11-21] MEDS: cefTRIAXone 1,000 MG in sodium chloride 0.9% (plus) 50 ML 100 MG IV (09:35)
[2021-11-21] MEDS: FUROsemide 40 mg Tablet PO (09:37)
[2021-11-21] MEDS: oseltamivir phosphate 75 mg Capsule PO ×2 (09:38→18:07)
[2021-11-21 10:49] LABS: Glucose Point of Care 255 mg/dL (70-110)
--- NOTE | 2021-11-21 13:13 | P.PN_ITS ---
Subjective Subjective: Mr. Reynolds is much more awake and lucid today. He feels quite well. Mild global edema. Eating and drinking well. No uremic symptoms. No other acute issues. Medications: Medication Review Details: Generic Name Dose Route Start Last Admin Trade Name Shana PRN Reason Stop Dose Admin Acetaminophen 650 mg 11/17/21 19:06 11/18/21 16:26 Acetaminophen 32 5 Mg Tablet PO 650 mg Q6H PRN Administration Mild/Mod Pain Or Temp >/= 101 Albuterol/Ipratrop ium 3 ml 11/17/21 20:00 11/19/21 11:40 Ipratropium-Albu terol 3 Ml Neb INHALATION 3 ml QID.RESPIRATORY S CH Administration Budesonide 0.5 mg 11/17/21 20:00 11/19/21 07:25 Budesonide 0.5 M g/2 Ml Neb INHALATION 0.5 mg BID.RESPIRATORY S CH Administration Folic Acid 1 mg 11/18/21 09:00 11/19/21 08:05 Folic Acid 1 Mg Tablet PO 1 mg DAILY ABRAHAN Administration Doxycycline Hyclat e 100 mg/ 100 mls @ 100 mls /hr 11/17/21 19:40 11/19/21 09:50 Sodium Chloride IV Infused Q12H ABRAHAN Infusion Protocol Ceftriaxone Sodium 1,000 mg/ 50 mls @ 100 mls/ hr 11/19/21 08:15 11/19/21 10:20 Sodium Chloride IV Infused Q24H ABRAHAN Infusion Protocol Lactulose 20 gm 11/18/21 17:15 11/19/21 09:08 Lactulose Oral L iq 20 Gm/30 Ml Udc PO 20 gm Q8H ABRAHAN Administration Levothyroxine Sodi um 50 mcg 11/18/21 08:00 11/19/21 08:05 Levothyroxine 50 Mcg Tablet PO 50 mcg Q24H ABRAHAN Administration Lorazepam 2 mg 11/17/21 19:06 11/18/21 23:06 Lorazepam 2 Mg T ablet PO 2 mg Q4H PRN Administration WITHDRAWAL Protocol Methylprednisolone Sodium Succinate 40 mg 11/17/21 19:06 11/19/21 11:50 Methylprednisolo ne Sod Succ 40 Mg/ Ml Inj IVP 40 mg Q8H ABRAHAN Administration Multivitamins Ther apeutic 1 tab 11/18/21 09:00 11/19/21 08:05 Multivitamin The rapeutic Tablet PO 1 tab DAILY ABRAHAN Administration Oseltamivir Phosph ate 75 mg 11/18/21 09:00 11/19/21 08:06 Oseltamivir Phos phate 75 Mg Capsul e PO 75 mg BID ABRAHAN Administration Pantoprazole Sodiu m 40 mg 11/17/21 19:06 11/18/21 17:51 Pantoprazole 40 Mg Sdv IVP 40 mg Q24H ABRAHAN Administration Propranolol HCl 10 mg 11/18/21 18:00 11/19/21 08:04 Propranolol 20 M g Tablet PO 10 mg BID ABRAHAN Administration Rifaximin 550 mg 11/18/21 09:00 11/19/21 08:04 Rifaximin 550 Mg Tablet PO 550 mg BID ABRAHAN Administration Protocol Sucralfate 1 gm 11/18/21 17:00 11/19/21 11:08 Sucralfate 1 Gm Tablet PO Not Given AC&BEDTIME [facility] Thiamine Mononitra te 100 mg 11/18/21 09:00 11/19/21 08:05 Thiamine 100 Mg Tablet PO 100 mg DAILY ABRAHAN Administration Vitals/I&O/Wt Last Vital Signs Temp 98.9 F 11/21/21 07:26 Pulse 59 L 11/21/21 12:50 Resp 20 H 11/21/21 11:25 BP 165/98 11/21/21 10:58 Pulse Ox 96 11/21/21 12:50 11/20/21 11/21/21 11/21/21 22:59 06:59 14:59 Intake Total 750 / 1775 0 / 1775 236 / 236 Output Total 1300 / 2700 300 / 300 Balance -550 / -925 0 / -925 -64 / -64 Weight last 48 hrs Weight 122.47 kg Weight 123.785 kg Physical Exam Narrative: Constitutional: Awake, comfortable HEENT: Wet mucosa, no jvp, non icteric Lungs: Bilaterally clear without discernible wheeze, rales in all lung zones CVS: S1 S2, no murmurs Abdo: Soft, BS ok, ascites Ext 4: 2-3+ edema, peripheral perfusion with no cyanosis Neurological: Grossly non-focal Urinary Catheter Management: Flores: Cath Placed During This Visit: yes Reason for Continuing Indwelling Catheter: Acute Urinary Retention or Obstruction Urinary Catheter Date of Insertion: 11/20/21 Urinary Catheter Time of Insertion: 10:50 Data : 11/21/21 05:19 11/21/21 05:19 Micro: Microbiology 11/20/21 14:15 Legionella Urinary Antigen - Final Urine,Clean Catch Urine Culture - Preliminary Bacterial Antigens - Final 11/21/21 05:23 Blood Culture - Preliminary Blood SPECIMEN COLLECTED 11/21/21 05:19 Blood Culture - Preliminary Blood SPECIMEN COLLECTED 11/18/21 05:25 Gram Stain - Final Sputum - Expectorated Sputum Sputum Culture - Final Pseudomonas aeruginosa A&P Assessment and plan (1) Hyponatremia: Status: Acute Plan 1. Hypervolemic hyponatremia Likely to be multifactorial, from a combination of beer potomania, early liver cirrhosis, COPD. Sodium levels look good now Lasix 40mg ivp x 1 today Limit free water intake. 2. Shortness of breath Likely secondary influenza in the setting of COPD and fluid overload. Currently on Tamiflu, diuretic should help He should quit smoking, continue albuterol inhalers. BIPAP on board 3. Hemodynamics appear stable 4. Confusion Much better today. Okay for discharge in next 24 hours from IM perspective Thank you for consultation, as always a pleasure to follow these patients with you Giorgio Dye MD Nephrology [phone] Patient seen and examined via telemedicine, with the assistance of the bedside RN > 25 min spent in evaluation and mgmt of patient Attestations Medical Necessity Statement*: eval for hypoNa Coding Level of Care Code Acute Agriculture Laborer for [facility] Diagnoses Hyponatremia E87.1
[2021-11-21] MEDS: levofloxacin-dextrose 5 % 750 MG/150 ML PREMIX 100 MG IV (14:08)
[2021-11-21 16:58] LABS: Glucose Point of Care 310 mg/dL (70-110)
[2021-11-21] MEDS: lactulose oral liq 20 gm/30 mL UDC PO (18:06)
[2021-11-21] MEDS: pantoprazole 40 mg SDV IVP (18:09)
[2021-11-21] MEDS: LORazepam 2 mg/mL INJ 1 mL IVP (19:46)
[2021-11-22] VITALS (12 sets, daily range): BP systolic 161–174; BP diastolic 66–84; PULSE 59–76; RESP 16–20; TEMP 36.8–37.1; O2SAT 90–95
[2021-11-22 05:59] LABS: Basophils % 0.1 %; Hematocrit 34.1 % (42.0-52.0); Hemoglobin 11.4 g/dL (11.7-16.6); Lymphocytes # 1.2 10^3/uL (0.8-4.8); Mean Corpuscular HGB Conc 33.4 g/dL (30.0-36.0); Mean Corpuscular Hemoglobin 36.5 pg (28.0-34.0); Mean Corpuscular Volume 109.3 fl (80-94); Mean Platelet Volume 10.4 fL (7.4-10.4); Monocytes # 0.4 10^3/uL (0.2-0.9); Neutrophils # 5.16 10^3/uL (1.8-7.7); Neutrophils % 75.9 %; Nucleated Red Blood Cells % 0 %; Platelet Count 77 10^3/cmm (130-400); Red Blood Count 3.12 10^6/uL (4.1-5.3); Red Cell Distribution Width 14.2 % (12.1-15.1); White Blood Count 6.8 10^3/uL (4.0-10.0)
[2021-11-22] MEDS: sucralfate 1 gm Tablet PO ×4 (06:07→21:44)
[2021-11-22 06:17] LABS: Blood Urea Nitrogen 10 mg/dL (6-20); Calcium 8.3 mg/dL (8.5-10.5); Carbon Dioxide 36 mmol/L (22-29); Chloride 89 mmol/L (98-107); Glomerular Filtration Rate 172.6 mL/min (90-130); Glucose 238 mg/dL (65-115); Osmolality Calculated 277 mOsm/kg (285-295); Sodium 130 mmol/L (136-145)
[2021-11-22 06:18] LABS: Anion Gap 8.7 (5-19); Potassium 3.7 mmol/L (3.5-5.1)
[2021-11-22 06:41] LABS: Glucose Point of Care 215 mg/dL (70-110)
[2021-11-22] MEDS: budesonide 0.5 mg/2 mL Neb INHALATION ×2 (08:23→20:19)
[2021-11-22] MEDS: ipratropium-albuterol 3 mL Neb INHALATION ×4 (08:23→20:19)
[2021-11-22] MEDS: FUROsemide 40 mg Tablet PO (08:30)
[2021-11-22] MEDS: levothyroxine 50 mcg Tablet PO (08:30)
[2021-11-22] MEDS: oseltamivir phosphate 75 mg Capsule PO ×2 (08:30→17:19)
[2021-11-22] MEDS: cefTRIAXone 1,000 MG in sodium chloride 0.9% (plus) 50 ML 100 MG IV (08:31)
[2021-11-22] MEDS: multivitamin therapeutic Tablet 1 TAB PO (08:31)
[2021-11-22] MEDS: folic acid 1 mg Tablet PO (08:31)
[2021-11-22] MEDS: thiamine 100 mg Tablet PO (08:31)
[2021-11-22] MEDS: propranolol 20 mg Tablet 10 MG PO ×2 (08:31→17:19)
--- NOTE | 2021-11-22 11:49 | PM.PN ---
Subjective Subjective: No new issues, more lucid, global edema. No other new issues, oterhwise doing better Medications: Medication Review Details: Generic Name Dose Route Start Last Admin Trade Name Shana PRN Reason Stop Dose Admin Acetaminophen 650 mg 11/17/21 19:06 11/18/21 16:26 Acetaminophen 32 5 Mg Tablet PO 650 mg Q6H PRN Administration Mild/Mod Pain Or Temp >/= 101 Albuterol/Ipratrop ium 3 ml 11/17/21 20:00 11/19/21 11:40 Ipratropium-Albu terol 3 Ml Neb INHALATION 3 ml QID.RESPIRATORY S CH Administration Budesonide 0.5 mg 11/17/21 20:00 11/19/21 07:25 Budesonide 0.5 M g/2 Ml Neb INHALATION 0.5 mg BID.RESPIRATORY S CH Administration Folic Acid 1 mg 11/18/21 09:00 11/19/21 08:05 Folic Acid 1 Mg Tablet PO 1 mg DAILY ABRAHAN Administration Doxycycline Hyclat e 100 mg/ 100 mls @ 100 mls /hr 11/17/21 19:40 11/19/21 09:50 Sodium Chloride IV Infused Q12H ABRAHAN Infusion Protocol Ceftriaxone Sodium 1,000 mg/ 50 mls @ 100 mls/ hr 11/19/21 08:15 11/19/21 10:20 Sodium Chloride IV Infused Q24H ABRAHAN Infusion Protocol Lactulose 20 gm 11/18/21 17:15 11/19/21 09:08 Lactulose Oral L iq 20 Gm/30 Ml Udc PO 20 gm Q8H ABRAHAN Administration Levothyroxine Sodi um 50 mcg 11/18/21 08:00 11/19/21 08:05 Levothyroxine 50 Mcg Tablet PO 50 mcg Q24H ABRAHAN Administration Lorazepam 2 mg 11/17/21 19:06 11/18/21 23:06 Lorazepam 2 Mg T ablet PO 2 mg Q4H PRN Administration WITHDRAWAL Protocol Methylprednisolone Sodium Succinate 40 mg 11/17/21 19:06 11/19/21 11:50 Methylprednisolo ne Sod Succ 40 Mg/ Ml Inj IVP 40 mg Q8H ABRAHAN Administration Multivitamins Ther apeutic 1 tab 11/18/21 09:00 11/19/21 08:05 Multivitamin The rapeutic Tablet PO 1 tab DAILY ABRAHAN Administration Oseltamivir Phosph ate 75 mg 11/18/21 09:00 11/19/21 08:06 Oseltamivir Phos phate 75 Mg Capsul e PO 75 mg BID ABRAHAN Administration Pantoprazole Sodiu m 40 mg 11/17/21 19:06 11/18/21 17:51 Pantoprazole 40 Mg Sdv IVP 40 mg Q24H ABRAHAN Administration Propranolol HCl 10 mg 11/18/21 18:00 11/19/21 08:04 Propranolol 20 M g Tablet PO 10 mg BID ABRAHAN Administration Rifaximin 550 mg 11/18/21 09:00 11/19/21 08:04 Rifaximin 550 Mg Tablet PO 550 mg BID ABRAHAN Administration Protocol Sucralfate 1 gm 11/18/21 17:00 11/19/21 11:08 Sucralfate 1 Gm Tablet PO Not Given AC&BEDTIME [facility] Thiamine Mononitra te 100 mg 11/18/21 09:00 11/19/21 08:05 Thiamine 100 Mg Tablet PO 100 mg DAILY ABRAHAN Administration Vitals/I&O/Wt Last Vital Signs Temp 98.5 F 11/22/21 08:00 Pulse 59 L 11/22/21 11:06 Resp 18 11/22/21 11:06 BP 171/82 11/22/21 08:00 Pulse Ox 92 11/22/21 11:06 11/21/21 11/22/21 11/22/21 22:59 06:59 14:59 Intake Total 1059 / 2006 420 / 2426 350 / 350 Output Total 1500 / 1800 750 / 2550 Balance -440 / 206 -330 / -124 350 / 350 Weight last 48 hrs Weight 120.202 kg Weight 122.47 kg Physical Exam Narrative: Constitutional: Awake, comfortable HEENT: Wet mucosa, no jvp, non icteric Lungs: Bilaterally clear without discernible wheeze, rales in all lung zones CVS: S1 S2, no murmurs Abdo: Soft, BS ok, ascites Ext 4: 2-3+ edema, peripheral perfusion with no cyanosis Neurological: Grossly non-focal Urinary Catheter Management: Flores: Cath Placed During This Visit: yes Reason for Continuing Indwelling Catheter: Accurate Measurement of Urinary Output in Critically Ill Patients Urinary Catheter Date of Insertion: 11/20/21 Urinary Catheter Time of Insertion: 10:50 Data : 11/22/21 05:31 03/19/22 05:31 Micro: Microbiology 11/20/21 14:15 Legionella Urinary Antigen - Final Urine,Clean Catch Urine Culture - Final Bacterial Antigens - Final 11/21/21 05:23 Blood Culture - Preliminary Blood NEGATIVE TO DATE 11/21/21 05:19 Blood Culture - Preliminary Blood NEGATIVE TO DATE A&P Assessment and plan (1) Hyponatremia: Status: Acute Plan 1. Hypervolemic hyponatremia Likely to be multifactorial, from a combination of beer potomania, early liver cirrhosis, COPD. Sodium levels look good now Daily Lasix now Limit free water intake. 2. Shortness of breath Likely secondary influenza in the setting of COPD and fluid overload. He should quit smoking, continue albuterol inhalers. BIPAP on board 3. Hemodynamics appear stable 4. Confusion Much better today. Okay for discharge, will sign off at this time, thanks Thank you for consultation, as always a pleasure to follow these patients with you Giorgio Dye MD Nephrology [phone] Patient seen and examined via telemedicine, with the assistance of the bedside RN > 25 min spent in evaluation and mgmt of patient Attestations Medical Necessity Statement*: Eval for hyponatremia Coding Level of Care Code Acute Chlorinator Operator for [facility] Enrique Huitrond Diagnoses Hyponatremia E87.1
[2021-11-22 12:03] LABS: Glucose Point of Care 250 mg/dL (70-110)
--- NOTE | 2021-11-22 12:22 | PC.SOCIAL ---
IMM Update pg 2 of IMM updated and reviewed w/ patient. Copy provided and copy in chart updated.
[2021-11-22] MEDS: LORazepam 2 mg/mL INJ 1 mL IVP (12:30)
--- NOTE | 2021-11-22 13:15 | P.PN_ITS ---
Subjective Subjective: Patient was seen and examined today, he was drowsy today likely because of his persistent request for Ativan, will try and cut back on Ativan from today, have asked him to be out of bed today and spent time in chair and if possible try to ambulate more. Fluid restriction to 1200 cc daily. Wheezing has improved, swelling is slowly going down. No other acute events. His other vitals and labs have been reviewed. Medications: Medication Review Details: Generic Name Dose Route Start Last Admin Trade Name Freq PRN Reason Stop Dose Admin Acetaminophen 650 mg 11/17/21 19:06 11/18/21 16:26 Acetaminophen 32 5 Mg Tablet PO 650 mg Q6H PRN Administration Mild/Mod Pain Or Temp >/= 101 Albuterol/Ipratrop ium 3 ml 11/17/21 20:00 11/19/21 11:40 Ipratropium-Albu terol 3 Ml Neb INHALATION 3 ml QID.RESPIRATORY S CH Administration Budesonide 0.5 mg 11/17/21 20:00 11/19/21 07:25 Budesonide 0.5 M g/2 Ml Neb INHALATION 0.5 mg BID.RESPIRATORY S CH Administration Folic Acid 1 mg 11/18/21 09:00 11/19/21 08:05 Folic Acid 1 Mg Tablet PO 1 mg DAILY ABRAHAN Administration Doxycycline Hyclat e 100 mg/ 100 mls @ 100 mls /hr 11/17/21 19:40 11/19/21 09:50 Sodium Chloride IV Infused Q12H ABRAHAN Infusion Protocol Ceftriaxone Sodium 1,000 mg/ 50 mls @ 100 mls/ hr 11/19/21 08:15 11/19/21 10:20 Sodium Chloride IV Infused Q24H ABRAHAN Infusion Protocol Lactulose 20 gm 11/18/21 17:15 11/19/21 09:08 Lactulose Oral L iq 20 Gm/30 Ml Udc PO 20 gm Q8H ABRAHAN Administration Levothyroxine Sodi um 50 mcg 11/18/21 08:00 11/19/21 08:05 Levothyroxine 50 Mcg Tablet PO 50 mcg Q24H ABRAHAN Administration Lorazepam 2 mg 11/17/21 19:06 11/18/21 23:06 Lorazepam 2 Mg T ablet PO 2 mg Q4H PRN Administration WITHDRAWAL Protocol Methylprednisolone Sodium Succinate 40 mg 11/17/21 19:06 11/19/21 11:50 Methylprednisolo ne Sod Succ 40 Mg/ Ml Inj IVP 40 mg Q8H ABRAHAN Administration Multivitamins Ther apeutic 1 tab 11/18/21 09:00 11/19/21 08:05 Multivitamin The rapeutic Tablet PO 1 tab DAILY ABRAHAN Administration Oseltamivir Phosph ate 75 mg 11/18/21 09:00 11/19/21 08:06 Oseltamivir Phos phate 75 Mg Capsul e PO 75 mg BID ABRAHAN Administration Pantoprazole Sodiu m 40 mg 11/17/21 19:06 11/18/21 17:51 Pantoprazole 40 Mg Sdv IVP 40 mg Q24H ABRAHAN Administration Propranolol HCl 10 mg 11/18/21 18:00 11/19/21 08:04 Propranolol 20 M g Tablet PO 10 mg BID ABRAHAN Administration Rifaximin 550 mg 11/18/21 09:00 11/19/21 08:04 Rifaximin 550 Mg Tablet PO 550 mg BID ABRAHAN Administration Protocol Sucralfate 1 gm 11/18/21 17:00 11/19/21 11:08 Sucralfate 1 Gm Tablet PO Not Given AC&[facility]TIME [facility] Thiamine Mononitra te 100 mg 11/18/21 09:00 11/19/21 08:05 Thiamine 100 Mg Tablet PO 100 mg DAILY ABRAHAN Administration Vitals/I&O/Wt Last Vital Signs Temp 98.7 F 11/22/21 11:53 Pulse 63 11/22/21 11:53 Resp 18 11/22/21 11:53 BP 174/84 11/22/21 11:53 Pulse Ox 90 11/22/21 11:53 11/21/21 11/22/21 11/22/21 22:59 06:59 14:59 Intake Total 1059 420 / 2426 850 / 850 Output Total 1500 / 1800 750 / 2550 Balance -440 / 206 -330 / -124 850 / 850 Weight last 48 hrs Weight 120.202 kg Weight 122.47 kg Physical Exam Const: COMMON NORMALS: patient oriented x3 HENMT: COMMON NORMALS: normocephalic and atraumatic HEAD & SCALP: normocephalic and atraumatic Chest: COMMONS NORMALS: normal inspection of the chest and normal palpation of entire chest wall CHEST: Yes Symmetrical chest wall rise Resp: COMMON NORMALS: normal respiratory effort, No retractions, No use of acc essory muscles and clear to auscultation bilaterally EFFORT & INSPECTION: Yes symmetric chest movement AUSCULTATION: clear to auscultation bilaterally OTHER: Diminished air entry bilaterally. Cardio: COMMON NORMALS: regular rate, regular rhythm, S1 normal heart sound present, S2 normal heart sound present, No gallops present (Cardio), No murmurs present (Cardio), No rub (Cardio) and Peripheral pulses 2+ throughout RATE: regular rate RHYTHM: regular rhythm HEART SOUNDS: S1 normal heart sound present and S2 normal heart sound present PERIPHERAL PULSES: Peripheral pulses 2+ throughout GI: COMMON NORMALS: Normal to inspection, nondistended, normoactive bowel sounds present, Soft to palpation, non-tender, No hepatosplenomegaly present and no masses AUSCULTATION: Yes normoactive bowel sounds PALPATION: Yes Soft to palpation and Yes No hepatosplenomegaly present RECTAL EXAM: Yes deferred Extremity: COMMON NORMALS: no clubbing, cyanosis or edema and no pedal edema OTHER: 2+ bilateral lower extremity edema present Neuro: COMMON NORMALS: patient oriented x3 Urinary Catheter Management: Flores: Cath Placed During This Visit: yes Reason for Continuing Indwelling Catheter: Accurate Measurement of Urinary Output in Critically Ill Patients Urinary Catheter Date of Insertion: 11/20/21 Urinary Catheter Time of Insertion: 10:50 Data : 11/22/21 05:31 11/22/21 05:31 Micro: Microbiology 11/20/21 14:15 Legionella Urinary Antigen - Final Urine,Clean Catch Urine Culture - Final Bacterial Antigens - Final 11/21/21 05:23 Blood Culture - Preliminary Blood NEGATIVE TO DATE 11/21/21 05:19 Blood Culture - Preliminary Blood NEGATIVE TO DATE A&P Assessment and plan (1) Hyponatremia: Status: Acute (2) Shortness of breath: Status: Acute (3) Alcoholism: Status: Acute (4) Fever: Status: Acute (5) Generalized weakness: Status: Acute (6) Influenzal pneumonia: Status: Acute (7) Liver cirrhosis: Status: Acute (8) Ascites: Status: Acute (9) COPD exacerbation: Status: Acute (10) Respiratory failure with hypoxia and hypercapnia: Status: Acute (11) Acute metabolic encephalopathy: Status: Acute (12) Hyperkalemia: Status: Acute Plan -Acute on chronic hypoxic hypercapnic respiratory failure likely secondary to COPD exacerbation, influenza PNA: Patient complaining of shortness of breath , has history of hemoptysis , currently tachypneic CT angiogram negative for pulmonary emboli 2D echocardiogram: LV systolic function is normal with EF of 55 to 60%, grade 1 diastolic dysfunction RV dilated, no gross valvular heart disease. Sputum Gram stain and culture:GNR: Pseudomonas.A Follow blood culture Urine Legionella antigen: Bacterial antigen panel Continue Solu-Medrol 60 mg IV every 12 Continue duo nebs Continue budesonide inhaler On Tamiflu On Ceftriaxone and Levofloxacin -Continue BiPAP -SCDs for DVT prophylaxis, will hold off on Lovenox as complaints of hemoptysis Hypervolemic hyponatremia: ( chronic alcoholism, fluid overload ) TSH : 5.67 -Clinically does not look dehydrated, has bilateral extreme edema, anasarca, abdominal wall edema -Baseline serum sodium unknown -No headache, no blurry vision, no nausea, no vomiting Plan: -Was on Lasix, spironolactone has been discontinued. -Fluid restriction, -Monitor serum sodium every 4 hours #Acute metabolic encephalopathy: Multifactorial: Hyponatremia, hypercapnia, possible hepatic encephalopathy Ammonia.39 Continue BiPAP Neuro check every 4 hours Aspiration precaution Fall precaution Telemetry monitoring Continue lactulose 20 MG PO Q8H Target for 4-5 bowel movements daily. #Ascites: Likely secondary to chronic alcohol abuse: CT abdomen pelvis wo con: Hepatomegaly , splenomegaly , moderate ascites. Ultrasound abdomen was done for for possible paracentesis, no good pocket identified. Will empirically cover with ceftriaxone for possible SBP. #Alcohol abuse disorder -Reports drinking more than 6 beers a day at a time -Continue thiamine multivitamin folic acid -On [facility] protocol #COPD exacerbation, as above #Hypothyroidism, TSH slightly elevated, continue levothyroxine #Thrombocytopenia, likely secondary alcoholism, monitor # Anemia, likely secondary alcoholism, monitor Has hemoptysis, present at bedside, hold off on anticoagulation, start propanolol, Attestations Medical Necessity Statement*: Patient is to be in hospital for management of above defined problems. Time Spent in Patient Care: Greater than 35 minutes (>than 50% of time spent in counselling and/or direct pt care on unit) . Coding Level of Care Code Acute Industrial Gas Fitter for [facility] Shaina Diagnoses Hyponatremia E87.1 Shortness of breath R06.02 Alcoholism F10.20 Fever R50.9 Generalized weakness R53.1 Influenzal pneumonia J11.00 Liver cirrhosis K74.60 Ascites R18.8 COPD exacerbation J44.1 Respiratory failure with hypoxia and hypercapnia J96.91; J96.92 Acute metabolic encephalopathy G93.41 Hyperkalemia E87.5
[2021-11-22] MEDS: levofloxacin-dextrose 5 % 750 MG/150 ML PREMIX 100 MG IV (14:23)
--- NOTE | 2021-11-22 16:17 | PC.NURSE ---
Patient AAOx4, ambulating in room with walker with no complications. Flores removed per protocol, patient remains hypertensive. More compliant in the evening than the AM. No new events, no new complaints. No c/o pain, will report to oncoming nurse at shift change.
[2021-11-22 17:30] LABS: Glucose Point of Care 237 mg/dL (70-110)
[2021-11-22] MEDS: pantoprazole DR 40 mg Tablet PO (18:07)
[2021-11-22 22:00] LABS: Glucose Point of Care 308 mg/dL (70-110)
[2021-11-23] VITALS (13 sets, daily range): BP systolic 145–185; BP diastolic 68–80; PULSE 54–65; RESP 16–20; TEMP 36.4–36.9; O2SAT 86–95
[2021-11-23] MEDS: sucralfate 1 gm Tablet PO ×4 (06:12→21:02)
[2021-11-23 06:13] LABS: Glucose Point of Care 196 mg/dL (70-110)
[2021-11-23 06:24] LABS: Basophils % 0.3 %; Eosinophils % 0.3 %; Hematocrit 34.6 % (42.0-52.0); Hemoglobin 12.1 g/dL (11.7-16.6); Lymphocytes # 1.5 10^3/uL (0.8-4.8); Lymphocytes % 19.6 %; Mean Corpuscular Volume 105.8 fl (80-94); Mean Platelet Volume 10.3 fL (7.4-10.4); Monocytes # 0.9 10^3/uL (0.2-0.9); Monocytes % 11.3 %; Neutrophils # 5.11 10^3/uL (1.8-7.7); Neutrophils % 67.6 %; Nucleated Red Blood Cells % 0 %; Platelet Count 82 10^3/cmm (130-400); Red Blood Count 3.27 10^6/uL (4.1-5.3); Red Cell Distribution Width 13.8 % (12.1-15.1); White Blood Count 7.6 10^3/uL (4.0-10.0)
[2021-11-23 06:38] LABS: Blood Urea Nitrogen 12 mg/dL (6-20); Carbon Dioxide 36 mmol/L (22-29); Chloride 83 mmol/L (98-107); Glomerular Filtration Rate 223.3 mL/min (90-130); Glucose 219 mg/dL (65-115); Osmolality Calculated 262 mOsm/kg (285-295); Sodium 123 mmol/L (136-145)
[2021-11-23 06:51] LABS: Anion Gap 7.4 (5-19); Potassium 3.4 mmol/L (3.5-5.1)
--- NOTE | 2021-11-23 07:00 | PC.NURSE ---
Patient non compliant with cares. Refuses telemetry monitoring, has no IV access.
--- NOTE | 2021-11-23 07:01 | P.PN_ITS ---
Subjective Subjective: swollen. wants to go home. no hartman or cp. has ascites and sob Medications: Reviewed: Yes Medication Review Details: Current Medications Acetaminophen (Acetaminophen 325 Mg Tablet) 650 mg PO Q6H PRN PRN Reason: Mild/Mod Pain Or Temp >/= 101 Last Admin: 11/18/21 16:26 Dose: 650 mg Documented by: Albuterol/Ipratropium (Ipratropium-Albuterol 3 Ml Neb) 3 ml INHALATION QID.RESPIRATORY ABRAHAN Last Admin: 11/22/21 20:19 Dose: 3 ml Documented by: Budesonide (Budesonide 0.5 Mg/2 Ml Neb) 0.5 mg INHALATION BID.RESPIRATORY ABRAHAN Last Admin: 11/22/21 20:19 Dose: 0.5 mg Documented by: Dextrose (Dextrose 50% Syringe 50 Ml) 25 ml IVP ONCE PRN; Protocol PRN Reason: hypoglycemia protocol Dextrose (Dextrose 50% Syringe 50 Ml) 50 ml IVP PRN PRN; Protocol PRN Reason: hypoglycemia protocol Folic Acid (Folic Acid 1 Mg Tablet) 1 mg PO DAILY [facility] Last Admin: 11/22/21 08:31 Dose: 1 mg Documented by: Furosemide (Furosemide 40 Mg Tablet) 40 mg PO DAILY@0800 [facility] Last Admin: 11/22/21 08:30 Dose: 40 mg Documented by: Glucagon (Glucagon 1 Mg/Ml Inj 1 Ml) 1 mg IM ONCE PRN; Protocol PRN Reason: Adult Acute Hypoglycemia Prot. Dextrose (D5w) 500 mls @ 100 mls/hr IV ONCE PRN; Protocol PRN Reason: Adult Acute Hypoglycemia Prot Lactulose (Lactulose Oral Liq 20 Gm/30 Ml Udc) 20 gm PO Q8H [facility] Last Admin: 11/23/21 03:11 Dose: Not Given Documented by: Levofloxacin (Levofloxacin 750 Mg Tablet) 750 mg PO Q24H ABRAHAN; Protocol Levothyroxine Sodium (Levothyroxine 50 Mcg Tablet) 50 mcg PO Q24H [facility] Last Admin: 11/22/21 08:30 Dose: 50 mcg Documented by: Multivitamins Therapeutic (Multivitamin Therapeutic Tablet) 1 tab PO DAILY [facility] Last Admin: 11/22/21 08:31 Dose: 1 tab Documented by: Naloxone HCl (Naloxone 0.4 Mg/Ml Sdv) 0.1 mg IVP Q2M PRN PRN Reason: OPIATERV Ondansetron HCl (Ondansetron 2 Mg/Ml Sdv 2 Ml) 4 mg IVP Q8H PRN PRN Reason: vomiting, or N/V if npo Oseltamivir Phosphate (Oseltamivir Phosphate 75 Mg Capsule) 75 mg PO BID [facility] Last Admin: 11/22/21 17:19 Dose: 75 mg Documented by: Pantoprazole Sodium (Pantoprazole Dr 40 Mg Tablet) 40 mg PO Q24H [facility] Last Admin: 11/22/21 18:07 Dose: 40 mg Documented by: Prednisone (Prednisone 20 Mg Tablet) 40 mg PO DAILY [facility] Propranolol HCl (Propranolol 20 Mg Tablet) 10 mg PO BID [facility] Last Admin: 11/22/21 17:19 Dose: 10 mg Documented by: Rifaximin (Rifaximin 550 Mg Tablet) 550 mg PO BID [facility]; Protocol Last Admin: 11/22/21 17:19 Dose: 550 mg Documented by: Sucralfate (Sucralfate 1 Gm Tablet) 1 gm PO AC&BEDTIME [facility] Last Admin: 11/23/21 06:12 Dose: 1 gm Documented by: Thiamine Mononitrate (Thiamine 100 Mg Tablet) 100 mg PO DAILY [facility] Last Admin: 11/22/21 08:31 Dose: 100 mg Documented by: Vitals/I&O/Wt Last Vital Signs Temp 97.9 F 11/23/21 04:00 Pulse 58 L 11/23/21 04:00 Resp 18 11/23/21 04:00 BP 153/71 11/23/21 04:00 Pulse Ox 86 L 11/23/21 04:00 11/22/21 11/23/21 11/23/21 22:59 06:59 14:59 Intake Total 400 / 1250 Output Total 1900 / 1900 Balance -1500 / -650 Weight last 48 hrs Weight 120.202 kg Physical Exam Narrative: swollen, anasarca in bed vs noted heent- nc/at, eomi neck supple lungs wheezes heart reg abd soft, ascites, + bs ext b/l edema neuro a,a, o x 3 Urinary Catheter Management: Flores: Cath Placed During This Visit: yes, but has since been removed by the nurse Reason for Continuing Indwelling Catheter: Does Not Meet Criteria Urinary Catheter Date of Insertion: 11/20/21 Urinary Catheter Time of Insertion: 10:50 Date Urinary Catheter Removed: 11/22/21 Time Urinary Catheter Discontinued: 16:16 Data : 11/23/21 05:18 11/23/21 05:18 Micro: Microbiology 11/20/21 14:15 Legionella Urinary Antigen - Final Urine,Clean Catch Urine Culture - Final Bacterial Antigens - Final 11/21/21 05:23 Blood Culture - Preliminary Blood NEGATIVE TO DATE 11/21/21 05:19 Blood Culture - Preliminary Blood NEGATIVE TO DATE A&P Assessment and plan (1) Hyponatremia: Status: Acute Plan 56 yr old man 1. Hypervolemic hyponatremia elevated ur na and cirrhosis. -beer potomania normal cortisol tsh 5 - appears volume overloaded. serum na dropping and met alkalosis -will give iv lasix, albumin and salt tabs -check chem 7 q 12 hr 2. Shortness of breath Likely secondary influenza in the setting of COPD and fluid overload. He should quit smoking, continue albuterol inhalers. BIPAP on board 3. replete k and mag 4. dm control Patient seen and examined via telemedicine, with the assistance of the bedside RN > 25 min spent in evaluation and mgmt of patient Attestations Medical Necessity Statement*: hyponatremia Time Spent in Patient Care: 16 - 35 minutes (>than 50% of time spent in counselling and/or direct pt care on unit) . Coding Level of Care Code Acute Stone Grader for Carlos Ernique Merritt Diagnoses Hyponatremia E87.1
[2021-11-23 07:47] LABS: Glucose Point of Care 192 mg/dL (70-110)
[2021-11-23] MEDS: FUROsemide 10 mg/mL SDV 4mL 40 MG IVP ×2 (07:58→18:15)
[2021-11-23] MEDS: levothyroxine 50 mcg Tablet PO (07:59)
[2021-11-23] MEDS: thiamine 100 mg Tablet PO (08:02)
[2021-11-23] MEDS: folic acid 1 mg Tablet PO (08:02)
[2021-11-23] MEDS: multivitamin therapeutic Tablet 1 TAB PO (08:02)
[2021-11-23] MEDS: predniSONE 20 mg Tablet 40 MG PO (08:02)
[2021-11-23] MEDS: propranolol 20 mg Tablet 10 MG PO ×2 (08:03→17:03)
[2021-11-23] MEDS: sodium chloride 1 gm Tablet PO ×3 (08:11→21:02)
[2021-11-23] MEDS: potassium chloride ER 20 mEq Tablet 40 MEQ PO ×2 (08:11→17:03)
[2021-11-23] MEDS: lactulose oral liq 20 gm/30 mL UDC PO ×2 (08:11→16:15)
[2021-11-23] MEDS: budesonide 0.5 mg/2 mL Neb INHALATION ×2 (08:36→20:11)
[2021-11-23] MEDS: ipratropium-albuterol 3 mL Neb INHALATION ×4 (08:36→20:11)
--- NOTE | 2021-11-23 08:38 | PC.NURSE ---
Able to obtain IV access to administer medications
[2021-11-23 13:10] LABS: Alanine Aminotransferase 45 U/L (0-41); Albumin Level 2.8 g/dL (3.5-5.2); Alkaline Phosphatase 122 IU/L (40-130); Anion Gap 6.2 (5-19); Aspartate Amino Transferase 60 U/L (0-40); Blood Urea Nitrogen 12 mg/dL (6-20); Calcium 8.4 mg/dL (8.5-10.5); Carbon Dioxide 40 mmol/L (22-29); Chloride 80 mmol/L (98-107); Globulin 6.1 g/dL (1.3-4.6); Glomerular Filtration Rate 172.6 mL/min (90-130); Glucose 266 mg/dL (65-115); Osmolality Calculated 265 mOsm/kg (285-295); Potassium 3.2 mmol/L (3.5-5.1); Sodium 123 mmol/L (136-145); Total Bilirubin 2.8 mg/dL (0.15-1.2); Total Protein 8.9 g/dL (6.6-8.7)
[2021-11-23] MEDS: levoFLOXacin 750 mg Tablet PO (14:07)
--- NOTE | 2021-11-23 14:15 | PC.NURSE ---
Patient reliant on nursing staff for ADL's.
--- NOTE | 2021-11-23 16:00 | P.PN_ITS ---
Subjective Subjective: Patient was seen and examined today, unfortunately serum sodium again dropped to 123 today after improving significantly until yesterday, patient is clinically volume overloaded. We will have to start him on Lasix as well as albumin. Medications: Medication Review Details: Generic Name Dose Route Start Last Admin Trade Name Randellq PRN Reason Stop Dose Admin Acetaminophen 650 mg 11/17/21 19:06 11/18/21 16:26 Acetaminophen 32 5 Mg Tablet PO 650 mg Q6H PRN Administration Mild/Mod Pain Or Temp >/= 101 Albuterol/Ipratrop ium 3 ml 11/17/21 20:00 11/19/21 11:40 Ipratropium-Albu terol 3 Ml Neb INHALATION 3 ml QID.RESPIRATORY S CH Administration Budesonide 0.5 mg 11/17/21 20:00 11/19/21 07:25 Budesonide 0.5 M g/2 Ml Neb INHALATION 0.5 mg BID.RESPIRATORY S CH Administration Folic Acid 1 mg 11/18/21 09:00 11/19/21 08:05 Folic Acid 1 Mg Tablet PO 1 mg DAILY ABRAHAN Administration Doxycycline Hyclat e 100 mg/ 100 mls @ 100 mls /hr 11/17/21 19:40 11/19/21 09:50 Sodium Chloride IV Infused Q12H ABRAHAN Infusion Protocol Ceftriaxone Sodium 1,000 mg/ 50 mls @ 100 mls/ hr 11/19/21 08:15 11/19/21 10:20 Sodium Chloride IV Infused Q24H ABRAHAN Infusion Protocol Lactulose 20 gm 11/18/21 17:15 11/19/21 09:08 Lactulose Oral L iq 20 Gm/30 Ml Udc PO 20 gm Q8H ABRAHAN Administration Levothyroxine Sodi um 50 mcg 11/18/21 08:00 11/19/21 08:05 Levothyroxine 50 Mcg Tablet PO 50 mcg Q24H ABRAHAN Administration Lorazepam 2 mg 11/17/21 19:06 11/18/21 23:06 Lorazepam 2 Mg T ablet PO 2 mg Q4H PRN Administration WITHDRAWAL Protocol Methylprednisolone Sodium Succinate 40 mg 11/17/21 19:06 11/19/21 11:50 Methylprednisolo ne Sod Succ 40 Mg/ Ml Inj IVP 40 mg Q8H ABRAHAN Administration Multivitamins Ther apeutic 1 tab 11/18/21 09:00 11/19/21 08:05 Multivitamin The rapeutic Tablet PO 1 tab DAILY ABRAHAN Administration Oseltamivir Phosph ate 75 mg 11/18/21 09:00 11/19/21 08:06 Oseltamivir Phos phate 75 Mg Capsul e PO 75 mg BID ABRAHAN Administration Pantoprazole Sodiu m 40 mg 11/17/21 19:06 11/18/21 17:51 Pantoprazole 40 Mg Sdv IVP 40 mg Q24H ABRAHAN Administration Propranolol HCl 10 mg 11/18/21 18:00 11/19/21 08:04 Propranolol 20 M g Tablet PO 10 mg BID ABRAHAN Administration Rifaximin 550 mg 11/18/21 09:00 11/19/21 08:04 Rifaximin 550 Mg Tablet PO 550 mg BID [facility] Administration Protocol Sucralfate 1 gm 11/18/21 17:00 11/19/21 11:08 Sucralfate 1 Gm Tablet PO Not Given AC&BEDTIME [facility] Thiamine Mononitra te 100 mg 11/18/21 09:00 11/19/21 08:05 Thiamine 100 Mg Tablet PO 100 mg DAILY ABRAHAN Administration Vitals/I&O/Wt Last Vital Signs Temp 97.5 F L 11/23/21 12:00 Pulse 57 L 11/23/21 12:33 Resp 20 H 11/23/21 12:33 BP 179/79 11/23/21 12:00 Pulse Ox 94 11/23/21 12:33 11/23/21 11/23/21 11/23/21 06:59 14:59 22:59 Intake Total 700 / 700 Balance 700 / 700 Weight last 48 hrs Weight 120.202 kg Physical Exam Const: COMMON NORMALS: patient oriented x3 HENMT: COMMON NORMALS: normocephalic and atraumatic HEAD & SCALP: normocephalic and atraumatic Chest: COMMONS NORMALS: normal inspection of the chest and normal palpation of entire chest wall CHEST: Yes Symmetrical chest wall rise Resp: COMMON NORMALS: normal respiratory effort, No retractions, No use of accessory muscles and clear to auscultation bilaterally EFFORT & INSPECTION: Yes symmetric chest movement AUSCULTATION: clear to auscultation bilaterally OTHER: Diminished air entry bilaterally. Cardio: COMMON NORMALS: regular rate, regular rhythm, S1 normal heart sound present, S2 normal heart sound present, No gallops present (Cardio), No murmurs present (Cardio), No rub (Cardio) and Peripheral pulses 2+ throughout RATE: regular rate RHYTHM: regular rhythm HEART SOUNDS: S1 normal heart sound present and S2 normal heart sound present PERIPHERAL PULSES: Peripheral pulses 2+ throughout GI: COMMON NORMALS: Normal to inspection, nondistended, normoactive bowel so unds present, Soft to palpation, non-tender, No hepatosplenomegaly present and no masses AUSCULTATION: Yes normoactive bowel sounds PALPATION: Yes Soft to palpation and Yes No hepatosplenomegaly present RECTAL EXAM: Yes deferred Extremity: COMMON NORMALS: no clubbing, cyanosis or edema and no pedal edema OTHER: 2+ bilateral lower extremity edema present Neuro: COMMON NORMALS: patient oriented x3 Urinary Catheter Management: Flores: Cath Placed During This Visit: yes, but has since been removed by the nurse Reason for Continuing Indwelling Catheter: Does Not Meet Criteria Urinary Catheter Date of Insertion: 11/20/21 Urinary Catheter Time of Insertion: 10:50 Date Urinary Catheter Removed: 11/22/21 Time Urinary Catheter Discontinued: 16:16 Data : 11/23/21 05:18 11/23/21 12:20 A&P Assessment and plan (1) Hyponatremia: Status: Acute (2) Shortness of breath: Status: Acute (3) Alcoholism: Status: Acute (4) Fever: Status: Acute (5) Generalized weakness: Status: Acute (6) Influenzal pneumonia: Status: Acute (7) Liver cirrhosis: Status: Acute (8) Ascites: Status: Acute (9) COPD exacerbation: Status: Acute (10) Respiratory failure with hypoxia and hypercapnia: Status: Acute (11) Acute metabolic encephalopathy: Status: Acute (12) Hyperkalemia: Status: Acute Plan -Acute on chronic hypoxic hypercapnic respiratory failure likely secondary to COPD exacerbation, influenza PNA: Patient complaining of shortness of breath , has history of hemoptysis , currently tachypneic CT angiogram negative for pulmonary emboli 2D echocardiogram: LV systolic function is normal with EF of 55 to 60%, grade 1 diastolic dysfunction RV dilated, no gross valvular heart disease. Sputum Gram stain and culture:GNR: Pseudomonas.A Follow blood culture Urine Legionella antigen: Bacterial antigen panel Continue Solu-Medrol 60 mg IV every 12 Continue duo nebs Continue budesonide inhaler On Tamiflu On Ceftriaxone and Levofloxacin -Continue BiPAP -SCDs for DVT prophylaxis, will hold off on Lovenox as complaints of hemoptysis Hypervolemic hyponatremia: ( chronic alcoholism, fluid overload ) TSH : 5.67 -Clinically does not look dehydrated, has bilateral extreme edema, anasarca, abdominal wall edema -Baseline serum sodium unknown -No headache, no blurry vision, no nausea, no vomiting Plan: -Currently on Lasix 40 mg IV twice daily -Salt tablet 1 GM TID daily -Fluid restriction, -Monitor serum sodium every 4 hours #Acute metabolic encephalopathy: Multifactorial: Hyponatremia, hypercapnia, possible hepatic encephalopathy Ammonia.39 Continue BiPAP Neuro check every 4 hours Aspiration precaution Fall precaution Telemetry monitoring Continue lactulose 20 MG PO Q8H Target for 4-5 bowel movements daily. #Ascites: Likely secondary to chronic alcohol abuse: CT abdomen pelvis wo con: Hepatomegaly , splenomegaly , moderate ascites. Ultrasound abdomen was done for for possible paracentesis, no good pocket identified. Will empirically cover with ceftriaxone for possible SBP. 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 Coding Level of Care Code Acute Digital Project Manager for [facility] Diagnoses Hyponatremia E87.1 Shortness of breath R06.02 Alcoholism F10.20 Fever R50.9 Generalized weakness R53.1 Influenzal pneumonia J11.00 Liver cirrhosis K74.60 Ascites R18.8 COPD exacerbation J44.1 Respiratory failure with hypoxia and hypercapnia J96.91; J96.92 Acute metabolic encephalopathy G93.41 Hyperkalemia E87.5
[2021-11-23 17:00] LABS: Glucose Point of Care 340 mg/dL (70-110)
--- NOTE | 2021-11-23 17:18 | PC.NURSE ---
Patient ambulating in room. COMBUSTION ENGINEER walked patient in hallway.
[2021-11-23 17:55] LABS: Blood Urea Nitrogen 12 mg/dL (6-20); Calcium 8.5 mg/dL (8.5-10.5); Carbon Dioxide 36 mmol/L (22-29); Chloride 81 mmol/L (98-107); Glomerular Filtration Rate 223.3 mL/min (90-130); Glucose 306 mg/dL (65-115); Magnesium 1.7 mg/dL (1.7-2.3); Osmolality Calculated 265 mOsm/kg (285-295); Sodium 122 mmol/L (136-145)
[2021-11-23 18:01] LABS: Anion Gap 8.1 (5-19); Potassium 3.1 mmol/L (3.5-5.1)
[2021-11-23] MEDS: pantoprazole DR 40 mg Tablet PO (18:02)
--- NOTE | 2021-11-23 18:08 | PC.NURSE ---
Patient non compliant with fluid restriction, nurse educated him on adhering to restriction, patient stated he just needed to last 2 more years then said i guess i'll of thirst .
[2021-11-23] MEDS: trazodone 50 mg Tablet PO (21:02)
[2021-11-24] VITALS (12 sets, daily range): BP systolic 138–195; BP diastolic 63–90; PULSE 56–66; RESP 16–18; TEMP 36.4–37.1; O2SAT 90–95
[2021-11-24 05:32] LABS: Alanine Aminotransferase 41 U/L (0-41); Albumin Level 2.8 g/dL (3.5-5.2); Alkaline Phosphatase 108 IU/L (40-130); Anion Gap 5.7 (5-19); Aspartate Amino Transferase 46 U/L (0-40); Blood Urea Nitrogen 11 mg/dL (6-20); Calcium 8.4 mg/dL (8.5-10.5); Carbon Dioxide 38 mmol/L (22-29); Chloride 84 mmol/L (98-107); Globulin 4.4 g/dL (1.3-4.6); Glomerular Filtration Rate 172.6 mL/min (90-130); Glucose 189 mg/dL (65-115); Magnesium 1.6 mg/dL (1.7-2.3); Osmolality Calculated 264 mOsm/kg (285-295); Phosphorus 2.3 mg/dL (2.5-4.5); Sodium 125 mmol/L (136-145); Total Bilirubin 2.5 mg/dL (0.15-1.2); Total Protein 7.2 g/dL (6.6-8.7)
[2021-11-24 05:36] LABS: Potassium 2.7 mmol/L (3.5-5.1)
[2021-11-24] MEDS: sucralfate 1 gm Tablet PO ×4 (06:27→20:51)
[2021-11-24] MEDS: potassium chloride ER 20 mEq Tablet 40 MEQ PO (06:27)
[2021-11-24] MEDS: budesonide 0.5 mg/2 mL Neb INHALATION ×2 (07:29→20:12)
[2021-11-24] MEDS: ipratropium-albuterol 3 mL Neb INHALATION ×3 (07:29→20:12)
[2021-11-24 07:56] LABS: Glucose Point of Care 144 mg/dL (70-110)
[2021-11-24] MEDS: levothyroxine 50 mcg Tablet PO (08:04)
[2021-11-24] MEDS: multivitamin therapeutic Tablet 1 TAB PO (08:04)
[2021-11-24] MEDS: folic acid 1 mg Tablet PO (08:04)
[2021-11-24] MEDS: propranolol 20 mg Tablet 10 MG PO ×2 (08:04→17:36)
[2021-11-24] MEDS: predniSONE 20 mg Tablet 40 MG PO (08:05)
[2021-11-24] MEDS: thiamine 100 mg Tablet PO (08:05)
[2021-11-24] MEDS: lactulose oral liq 20 gm/30 mL UDC PO ×2 (08:06→17:36)
--- NOTE | 2021-11-24 09:10 | PM.PN ---
Subjective Subjective: swollen, sob. wants to go home. denies n/v/f/c/hartman Medications: Reviewed: Yes Medication Review Details: Current Medications Acetaminophen (Acetaminophen 325 Mg Tablet) 650 mg PO Q6H PRN PRN Reason: Mild/Mod Pain Or Temp >/= 101 Last Admin: 11/18/21 16:26 Dose: 650 mg Documented by: Albuterol/Ipratropium (Ipratropium-Albuterol 3 Ml Neb) 3 ml INHALATION QID.RESPIRATORY ABRAHAN Last Admin: 11/24/21 07:29 Dose: 3 ml Documented by: Budesonide (Budesonide 0.5 Mg/2 Ml Neb) 0.5 mg INHALATION BID.RESPIRATORY ABRAHAN Last Admin: 11/24/21 07:29 Dose: 0.5 mg Documented by: Dextrose (Dextrose 50% Syringe 50 Ml) 25 ml IVP ONCE PRN; Protocol PRN Reason: hypoglycemia protocol Dextrose (Dextrose 50% Syringe 50 Ml) 50 ml IVP PRN PRN; Protocol PRN Reason: hypoglycemia protocol Folic Acid (Folic Acid 1 Mg Tablet) 1 mg PO DAILY ABRAHAN Last Admin: 11/24/21 08:04 Dose: 1 mg Documented by: Furosemide (Furosemide 10 Mg/Ml Sdv 4ml) 40 mg IVP Q12H ABRAHAN Last Admin: 11/23/21 18:15 Dose: 40 mg Documented by: Glucagon (Glucagon 1 Mg/Ml Inj 1 Ml) 1 mg IM ONCE PRN; Protocol PRN Reason: Adult Acute Hypoglycemia Prot. Dextrose (D5w) 500 mls @ 100 mls/hr IV ONCE PRN; Protocol PRN Reason: Adult Acute Hypoglycemia Prot Albumin Human (Albumin) 25 gm in 100 mls @ 60 mls/hr IV Q8H ABRAHAN Last Admin: 11/24/21 08:06 Dose: 60 mls/hr Documented by: Lidocaine HCl 5 ml/ Potassium (Chloride) 105 mls @ 25 mls/hr IV ONCE ONE Stop: 11/24/21 12:04 Lactulose (Lactulose Oral Liq 20 Gm/30 Ml Udc) 20 gm PO Q8H ABRAHAN Last Admin: 11/24/21 08:06 Dose: 20 gm Documented by: Levofloxacin (Levofloxacin 750 Mg Tablet) 750 mg PO Q24H ABRAHAN; Protocol Last Admin: 11/23/21 14:07 Dose: 750 mg Documented by: Levothyroxine Sodium (Levothyroxine 50 Mcg Tablet) 50 mcg PO Q24H [facility] Last Admin: 11/24/21 08:04 Dose: 50 mcg Documented by: Multivitamins Therapeutic (Multivitamin Therapeutic Tablet) 1 tab PO DAILY [facility] Last Admin: 11/24/21 08:04 Dose: 1 tab Documented by: Naloxone HCl (Naloxone 0.4 Mg/Ml Sdv) 0.1 mg IVP Q2M PRN PRN Reason: OPIATERV Ondansetron HCl (Ondansetron 2 Mg/Ml Sdv 2 Ml) 4 mg IVP Q8H PRN PRN Reason: vomiting, or N/V if npo Oseltamivir Phosphate (Oseltamivir Phosphate 75 Mg Capsule) 75 mg PO BID [facility] Last Admin: 11/24/21 08:15 Dose: Not Given Documented by: Pantoprazole Sodium (Pantoprazole Dr 40 Mg Tablet) 40 mg PO Q24H [facility] Last Admin: 11/23/21 18:02 Dose: 40 mg Documented by: Potassium Chloride (Potassium Chloride Oral Liq 20 Meq/15 Ml Udc) 40 meq PO BID [facility] Prednisone (Prednisone 20 Mg Tablet) 40 mg PO DAILY [facility] Last Admin: 11/24/21 08:05 Dose: 40 mg Documented by: Propranolol HCl (Propranolol 20 Mg Tablet) 10 mg PO BID [facility] Last Admin: 11/24/21 08:04 Dose: 10 mg Documented by: Rifaximin (Rifaximin 550 Mg Tablet) 550 mg PO BID [facility]; Protocol Last Admin: 11/24/21 08:05 Dose: 550 mg Documented by: Sodium Chloride (Sodium Chloride 1 Gm Tablet) 1 gm PO TID [facility] Last Admin: 11/23/21 21:02 Dose: 1 gm Documented by: Sucralfate (Sucralfate 1 Gm Tablet) 1 gm PO AC&BEDTIME [facility] Last Admin: 11/24/21 06:27 Dose: 1 gm Documented by: Thiamine Mononitrate (Thiamine 100 Mg Tablet) 100 mg PO DAILY [facility] Last Admin: 11/24/21 08:05 Dose: 100 mg Documented by: Trazodone HCl (Trazodone 50 Mg Tablet) 50 mg PO BEDTIME PRN PRN Reason: SLEEP Last Admin: 11/23/21 21:02 Dose: 50 mg Documented by: Vitals/I&O/Wt Last Vital Signs Temp 98.2 F 11/24/21 07:25 Pulse 62 11/24/21 07:34 Resp 18 11/24/21 07:29 BP 171/82 11/24/21 07:25 Pulse Ox 92 11/24/21 07:29 11/23/21 11/24/21 11/24/21 22:59 06:59 14:59 Intake Total 580 / 1280 220 / 1500 Balance 580 / 1280 220 / 1500 Weight last 48 hrs Weight 110.365 kg Physical Exam Narrative: swollen, anasarca, sob in chair vs noted - bp elevated heent- nc/at, eomi neck supple lungs wheezes and crackles heart reg abd soft, ascites, + bs ext b/l edema 2+ neuro a,a, o x 3 Urinary Catheter Management: Flores: Cath Placed During This Visit: yes, but has since been removed by the nurse Reason for Continuing Indwelling Catheter: Does Not Meet Criteria Urinary Catheter Date of Insertion: 11/20/21 Urinary Catheter Time of Insertion: 10:50 Date Urinary Catheter Removed: 11/22/21 Time Urinary Catheter Discontinued: 16:16 Data : 11/23/21 05:18 11/24/21 04:30 A&P Assessment and plan (1) Hyponatremia: Status: Acute Plan 56 yr old man 1. Hypervolemic hyponatremia elevated ur na and cirrhosis. -beer potomania normal cortisol tsh 5 - appears volume overloaded. serum na dropping and met alkalosis -recommend lasix, albumin and salt tabs -pt refuses to stay. if d/c home, attempt to monitor chemistries twice a week- and close f/u w/ medicine 2. replete k and mag- check repeat chem 7, mag prior to d/c 3. htn- likely improves w/ fluid removal 4. dm control Patient seen and examined via telemedicine, with the assistance of the bedside RN > 25 min spent in evaluation and mgmt of patient Attestations Medical Necessity Statement*: per medicine Time Spent in Patient Care: 16 - 35 minutes (>than 50% of time spent in counselling and/or direct pt care on unit). Coding Level of Care Code Acute Water Jet Loom Fixer for [facility] Diagnoses Hyponatremia E87.1
[2021-11-24] MEDS: lidocaine 1% 5 ML in potassium chloride premix 100 ML 25 ML IV (10:30)
[2021-11-24] MEDS: FUROsemide 10 mg/mL SDV 4mL 40 MG IVP ×2 (10:30→21:52)
[2021-11-24] MEDS: sodium chloride 1 gm Tablet PO ×3 (10:33→20:51)
[2021-11-24 10:43] LABS: Glucose Point of Care 314 mg/dL (70-110)
--- NOTE | 2021-11-24 11:06 | PC.SOCIAL ---
IMM Update Pg. 2 of IMM updated and reviewed with patient, who verbalized understanding. Initialed, dated, and timed, and placed in chart. Copy provided to patient.
--- NOTE | 2021-11-24 11:07 | PM.PN ---
Subjective Subjective: Alert awake oriented, still has significant electrolyte abnormalities, hyponatremia , hypokalemia hypomagnesemia. Serum sodium has improved to 125. Medications: Reviewed: Yes Medication Review Details: Current Medications Acetaminophen (Acetaminophen 325 Mg Tablet) 650 mg PO Q6H PRN PRN Reason: Mild/Mod Pain Or Temp >/= 101 Last Admin: 11/18/21 16:26 Dose: 650 mg Documented by: Albuterol/Ipratropium (Ipratropium-Albuterol 3 Ml Neb) 3 ml INHALATION QID.RESPIRATORY ABRAHAN Last Admin: 11/24/21 07:29 Dose: 3 ml Documented by: Budesonide (Budesonide 0.5 Mg/2 Ml Neb) 0.5 mg INHALATION BID.RESPIRATORY ABRAHAN Last Admin: 11/24/21 07:29 Dose: 0.5 mg Documented by: Dextrose (Dextrose 50% Syringe 50 Ml) 25 ml IVP ONCE PRN; Protocol PRN Reason: hypoglycemia protocol Dextrose (Dextrose 50% Syringe 50 Ml) 50 ml IVP PRN PRN; Protocol PRN Reason: hypoglycemia protocol Folic Acid (Folic Acid 1 Mg Tablet) 1 mg PO DAILY ABRAHAN Last Admin: 11/24/21 08:04 Dose: 1 mg Documented by: Furosemide (Furosemide 10 Mg/Ml Sdv 4ml) 40 mg IVP Q12H ABRAHAN Last Admin: 11/23/21 18:15 Dose: 40 mg Documented by: Glucagon (Glucagon 1 Mg/Ml Inj 1 Ml) 1 mg IM ONCE PRN; Protocol PRN Reason: Adult Acute Hypoglycemia Prot. Dextrose (D5w) 500 mls @ 100 mls/hr IV ONCE PRN; Protocol PRN Reason: Adult Acute Hypoglycemia Prot Albumin Human (Albumin) 25 gm in 100 mls @ 60 mls/hr IV Q8H ABRAHAN Last Admin: 11/24/21 08:06 Dose: 60 mls/hr Documented by: Lidocaine HCl 5 ml/ Potassium (Chloride) 105 mls @ 25 mls/hr IV ONCE ONE Stop: 11/24/21 12:04 Lactulose (Lactulose Oral Liq 20 Gm/30 Ml Udc) 20 gm PO Q8H ABRAHAN Last Admin: 11/24/21 08:06 Dose: 20 gm Documented by: Levofloxacin (Levofloxacin 750 Mg Tablet) 750 mg PO Q24H ABRAHAN; Protocol Last Admin: 11/23/21 14:07 Dose: 750 mg Documented by: Levothyroxine Sodium (Levothyroxine 50 Mcg Tablet) 50 mcg PO Q24H [facility] Last Admin: 11/24/21 08:04 Dose: 50 mcg Documented by: Multivitamins Therapeutic (Multivitamin Therapeutic Tablet) 1 tab PO DAILY [facility] Last Admin: 11/24/21 08:04 Dose: 1 tab Documented by: Naloxone HCl (Naloxone 0.4 Mg/Ml Sdv) 0.1 mg IVP Q2M PRN PRN Reason: OPIATERV Ondansetron HCl (Ondansetron 2 Mg/Ml Sdv 2 Ml) 4 mg IVP Q8H PRN PRN Reason: vomiting, or N/V if npo Oseltamivir Phosphate (Oseltamivir Phosphate 75 Mg Capsule) 75 mg PO BID [facility] Last Admin: 11/24/21 08:15 Dose: Not Given Documented by: Pantoprazole Sodium (Pantoprazole Dr 40 Mg Tablet) 40 mg PO Q24H [facility] Last Admin: 11/23/21 18:02 Dose: 40 mg Documented by: Potassium Chloride (Potassium Chloride Oral Liq 20 Meq/15 Ml Udc) 40 meq PO BID [facility] Prednisone (Prednisone 20 Mg Tablet) 40 mg PO DAILY [facility] Last Admin: 11/24/21 08:05 Dose: 40 mg Documented by: Propranolol HCl (Propranolol 20 Mg Tablet) 10 mg PO BID [facility] Last Admin: 11/24/21 08:04 Dose: 10 mg Documented by: Rifaximin (Rifaximin 550 Mg Tablet) 550 mg PO BID [facility]; Protocol Last Admin: 11/24/21 08:05 Dose: 550 mg Documented by: Sodium Chloride (Sodium Chloride 1 Gm Tablet) 1 gm PO TID [facility] Last Admin: 11/23/21 21:02 Dose: 1 gm Documented by: Sucralfate (Sucralfate 1 Gm Tablet) 1 gm PO AC&BEDTIME [facility] Last Admin: 11/24/21 06:27 Dose: 1 gm Documented by: Thiamine Mononitrate (Thiamine 100 Mg Tablet) 100 mg PO DAILY [facility] Last Admin: 11/24/21 08:05 Dose: 100 mg Documented by: Trazodone HCl (Trazodone 50 Mg Tablet) 50 mg PO BEDTIME PRN PRN Reason: SLEEP Last Admin: 11/23/21 21:02 Dose: 50 mg Documented by: Vitals/I&O/Wt Last Vital Signs Temp 98.2 F 11/24/21 07:25 Pulse 62 11/24/21 07:34 Resp 18 11/24/21 07:29 BP 171/82 11/24/21 07:25 Pulse Ox 92 11/24/21 07:29 11/23/21 11/24/21 11/24/21 22:59 06:59 14:59 Intake Total 580 / 1280 220 / 1500 220 / 220 Balance 580 / 1280 220 / 1500 220 / 220 Weight last 48 hrs Weight 110.365 kg Physical Exam Const: COMMON NORMALS: patient oriented x3 HENMT: COMMON NORMALS: normocephalic and atraumatic HEAD & SCALP: normocephalic and atraumatic Chest: COMMONS NORMALS: normal inspection of the chest and normal palpation of entire chest wall CHEST: Yes Symmetrical chest wall rise Resp: COMMON NORMALS: normal respiratory effort, No retractions, No use of accessory muscles and clear to auscultation bilaterally EFFORT & INSPECTION: Yes symmetric chest movement AUSCULTATION: clear to auscultation bilaterally OTHER: Diminished air entry bilaterally. Cardio: COMMON NORMALS: regular rate, regular rhythm, S1 normal heart sound present, S2 normal heart sound present, No gallops present (Cardio), No murmurs present (Cardio), No rub (Cardio) and Peripheral pulses 2+ throughout RATE: regular rate RHYTHM: regular rhythm HEART SOUNDS: S1 normal heart sound present and S2 normal heart sound present PERIPHERAL PULSES: Peripheral pulses 2+ throughout GI: COMMON NORMALS: Normal to inspection, nondistended, normoactive bowel sounds present, Soft to palpation, non-tender, No hepatosplenomegaly present and no masses AUSCULTATION: Yes normoactive bowel sounds PALPATION: Yes Soft to palpation and Yes No hepatosplenomegaly present RECTAL EXAM: Yes deferred Extremity: COMMON NORMALS: no clubbing, cyanosis or edema and no pedal edema OTHER: 2+ bilateral lower extremity edema present Neuro: COMMON NORMALS: patient oriented x3 Urinary Catheter Management: Flores: Cath Placed During This Visit: yes, but has since been removed by the nurse Reason for Continuing Indwelling Catheter: Does Not Meet Criteria Urinary Catheter Date of Insertion: 11/20/21 Urinary Catheter Time of Insertion: 10:50 Date Urinary Catheter Removed: 11/22/21 Time Urinary Catheter Discontinued: 16:16 Data : 11/23/21 05:18 03/21/22 04:30 A&P Assessment and plan (1) Hyponatremia: Status: Acute (2) Shortness of breath: Status: Acute (3) Alcoholism: Status: Acute (4) Fever: Status: Acute (5) Generalized weakness: Status: Acute (6) Influenzal pneumonia: Status: Acute (7) Liver cirrhosis: Status: Acute (8) Ascites: Status: Acute (9) COPD exacerbation: Status: Acute (10) Respiratory failure with hypoxia and hypercapnia: Status: Acute (11) Acute metabolic encephalopathy: Status: Acute (12) Hyperkalemia: Status: Acute Plan -Acute on chronic hypoxic hypercapnic respiratory failure likely secondary to COPD exacerbation, influenza PNA: Patient complaining of shortness of breath , has history of hemoptysis , currently tachypneic CT angiogram negative for pulmonary emboli 2D echocardiogram: LV systolic function is normal with EF of 55 to 60%, grade 1 diastolic dysfunction RV dilated, no gross valvular heart disease. Sputum Gram stain and culture:GNR: Pseudomonas.A Follow blood culture Urine Legionella antigen: Bacterial antigen panel Continue Solu-Medrol 60 mg IV every 12 Continue duo nebs Continue budesonide inhaler On Tamiflu On Ceftriaxone and Levofloxacin -Continue BiPAP -SCDs for DVT prophylaxis, will hold off on Lovenox as complaints of hemoptysis Hypervolemic hyponatremia: ( chronic alcoholism, fluid overload ) TSH : 5.67 -Clinically does not look dehydrated, has bilateral extreme edema, anasarca, abdominal wall edema -Baseline serum sodium unknown -No headache, no blurry vision, no nausea, no vomiting Plan: -Currently on Lasix 40 mg IV twice daily -Salt tablet 1 GM TID daily -Fluid restriction, -Monitor serum sodium every 4 hours #Acute metabolic encephalopathy: Multifactorial: Hyponatremia, hypercapnia, possible hepatic encephalopathy Ammonia.39 Continue BiPAP Neuro check every 4 hours Aspiration precaution Fall precaution Telemetry monitoring Continue lactulose 20 MG PO Q8H Target for 4-5 bowel movements daily. #Ascites: Likely secondary to chronic alcohol abuse: CT abdomen pelvis wo con: Hepatomegaly , splenomegaly , moderate ascites. Ultrasound abdomen was done for for possible paracentesis, no good pocket identified. Will empirically cover with ceftriaxone for possible SBP. 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 Coding Level of Care Code Acute Film Tests Checker for Chg Fwd Exam Detailed Diagnoses Hyponatremia E87.1 Shortness of breath R06.02 Alcoholism F10.20 Fever R50.9 Generalized weakness R53.1 Influenzal pneumonia J11.00 Liver cirrhosis K74.60 Ascites R18.8 COPD exacerbation J44.1 Respiratory failure with hypoxia and hypercapnia J96.91; J96.92 Acute metabolic encephalopathy G93.41 Hyperkalemia E87.5
[2021-11-24] MEDS: magnesium sulfate premix 2 GM/50 ML PIGGYBACK IV (14:11)
[2021-11-24] MEDS: levoFLOXacin 750 mg Tablet PO (14:11)
[2021-11-24 15:43] LABS: Osmolality Urine 327 mOsm/kg (50-1200)
[2021-11-24 17:19] LABS: Alanine Aminotransferase 66 U/L (0-41); Albumin Level 3.7 g/dL (3.5-5.2); Alkaline Phosphatase 130 IU/L (40-130); Anion Gap 12.7 (5-19); Aspartate Amino Transferase 82 U/L (0-40); Blood Urea Nitrogen 10 mg/dL (6-20); Calcium 8.8 mg/dL (8.5-10.5); Carbon Dioxide 37 mmol/L (22-29); Chloride 84 mmol/L (98-107); Globulin 4.8 g/dL (1.3-4.6); Glomerular Filtration Rate 139.9 mL/min (90-130); Glucose 351 mg/dL (65-115); Osmolality Calculated 283 mOsm/kg (285-295); Potassium 3.7 mmol/L (3.5-5.1); Sodium 130 mmol/L (136-145); Total Bilirubin 3.6 mg/dL (0.15-1.2); Total Protein 8.5 g/dL (6.6-8.7)
[2021-11-24] MEDS: potassium chloride oral liq 20 mEq/15 mL UDC 40 MEQ PO (17:35)
[2021-11-24] MEDS: pantoprazole DR 40 mg Tablet PO (17:36)
[2021-11-24 17:42] LABS: Glucose Point of Care 358 mg/dL (70-110)
[2021-11-24 20:36] LABS: Glucose Point of Care 341 mg/dL (70-110)
[2021-11-24] MEDS: trazodone 50 mg Tablet PO (21:03)
[2021-11-25] VITALS (9 sets, daily range): BP systolic 138–165; BP diastolic 63–83; PULSE 56–74; RESP 17–19; TEMP 36.4–36.8; O2SAT 88–96
[2021-11-25] MEDS: hyDROXYzine 25 mg Capsule PO (00:52)
[2021-11-25] MEDS: lactulose oral liq 20 gm/30 mL UDC PO ×2 (00:52→08:45)
[2021-11-25 05:18] LABS: Alanine Aminotransferase 46 U/L (0-41); Albumin Level 3.1 g/dL (3.5-5.2); Alkaline Phosphatase 102 IU/L (40-130); Blood Urea Nitrogen 10 mg/dL (6-20); Calcium 8.3 mg/dL (8.5-10.5); Carbon Dioxide 35 mmol/L (22-29); Chloride 89 mmol/L (98-107); Glomerular Filtration Rate 223.3 mL/min (90-130); Glucose 191 mg/dL (65-115); Magnesium 1.8 mg/dL (1.7-2.3); Osmolality Calculated 276 mOsm/kg (285-295); Phosphorus 2.7 mg/dL (2.5-4.5); Sodium 131 mmol/L (136-145); Total Bilirubin 2.7 mg/dL (0.15-1.2); Total Protein 7.1 g/dL (6.6-8.7)
[2021-11-25 05:22] LABS: Anion Gap 10.1 (5-19); Aspartate Amino Transferase 56 U/L (0-40); Potassium 3.1 mmol/L (3.5-5.1)
[2021-11-25 06:26] LABS: Glucose Point of Care 197 mg/dL (70-110)
[2021-11-25] MEDS: sucralfate 1 gm Tablet PO ×2 (06:29→10:52)
[2021-11-25] MEDS: ipratropium-albuterol 3 mL Neb INHALATION ×2 (07:40→11:09)
[2021-11-25] MEDS: budesonide 0.5 mg/2 mL Neb INHALATION (07:40)
--- NOTE | 2021-11-25 08:08 | P.PN_ITS ---
Subjective Subjective: feels better. no n/v/f/c/. dec sob. still w/ edema Medications: Reviewed: Yes Medication Review Details: Current Medications Acetaminophen (Acetaminophen 325 Mg Tablet) 650 mg PO Q6H PRN PRN Reason: Mild/Mod Pain Or Temp >/= 101 Last Admin: 11/18/21 16:26 Dose: 650 mg Documented by: Albuterol/Ipratropium (Ipratropium-Albuterol 3 Ml Neb) 3 ml INHALATION QID.RESPIRATORY ABRAHAN Last Admin: 11/25/21 07:40 Dose: 3 ml Documented by: Budesonide (Budesonide 0.5 Mg/2 Ml Neb) 0.5 mg INHALATION BID.RESPIRATORY ABRAHAN Last Admin: 11/25/21 07:40 Dose: 0.5 mg Documented by: Dextrose (Dextrose 50% Syringe 50 Ml) 25 ml IVP ONCE PRN; Protocol PRN Reason: hypoglycemia protocol Dextrose (Dextrose 50% Syringe 50 Ml) 50 ml IVP PRN PRN; Protocol PRN Reason: hypoglycemia protocol Folic Acid (Folic Acid 1 Mg Tablet) 1 mg PO DAILY [facility] Last Admin: 11/24/21 08:04 Dose: 1 mg Documented by: Furosemide (Furosemide 10 Mg/Ml Sdv 4ml) 40 mg IVP Q12H ABRAHAN Last Admin: 11/24/21 21:52 Dose: 40 mg Documented by: Glucagon (Glucagon 1 Mg/Ml Inj 1 Ml) 1 mg IM ONCE PRN; Protocol PRN Reason: Adult Acute Hypoglycemia Prot. Dextrose (D5w) 500 mls @ 100 mls/hr IV ONCE PRN; Protocol PRN Reason: Adult Acute Hypoglycemia Prot Albumin Human (Albumin) 25 gm in 100 mls @ 60 mls/hr IV Q8H [facility] Last Infusion: 11/25/21 01:40 Dose: Infused Documented by: Lactulose (Lactulose Oral Liq 20 Gm/30 Ml Udc) 20 gm PO Q8H ABRAHAN Last Admin: 11/25/21 00:52 Dose: 20 gm Documented by: Levofloxacin (Levofloxacin 750 Mg Tablet) 750 mg PO Q24H ABRAHAN; Protocol Last Admin: 11/24/21 14:11 Dose: 750 mg Documented by: Levothyroxine Sodium (Levothyroxine 50 Mcg Tablet) 50 mcg PO Q24H ABRAHAN Last Admin: 11/24/21 08:04 Dose: 50 mcg Documented by: Multivitamins Therapeutic (Multivitamin Therapeutic Tablet) 1 tab PO DAILY [facility] Last Admin: 11/24/21 08:04 Dose: 1 tab Documented by: Naloxone HCl (Naloxone 0.4 Mg/Ml Sdv) 0.1 mg IVP Q2M PRN PRN Reason: OPIATERV Ondansetron HCl (Ondansetron 2 Mg/Ml Sdv 2 Ml) 4 mg IVP Q8H PRN PRN Reason: vomiting, or N/V if npo Oseltamivir Phosphate (Oseltamivir Phosphate 75 Mg Capsule) 75 mg PO BID [facility] Last Admin: 11/24/21 17:36 Dose: Not Given Documented by: Pantoprazole Sodium (Pantoprazole Dr 40 Mg Tablet) 40 mg PO Q24H [facility] Last Admin: 11/24/21 17:36 Dose: 40 mg Documented by: Potassium Chloride (Potassium Chloride Oral Liq 20 Meq/15 Ml Udc) 40 meq PO BID [facility] Last Admin: 11/24/21 17:35 Dose: 40 meq Documented by: Prednisone (Prednisone 20 Mg Tablet) 40 mg PO DAILY [facility] Last Admin: 11/24/21 08:05 Dose: 40 mg Documented by: Propranolol HCl (Propranolol 20 Mg Tablet) 10 mg PO BID [facility] Last Admin: 11/24/21 17:36 Dose: 10 mg Documented by: Rifaximin (Rifaximin 550 Mg Tablet) 550 mg PO BID [facility]; Protocol Last Admin: 11/24/21 17:36 Dose: 550 mg Documented by: Sodium Chloride (Sodium Chloride 1 Gm Tablet) 1 gm PO TID [facility] Last Admin: 11/24/21 20:51 Dose: 1 gm Documented by: Sucralfate (Sucralfate 1 Gm Tablet) 1 gm PO AC&BEDTIME [facility] Last Admin: 11/25/21 06:29 Dose: 1 gm Documented by: Thiamine Mononitrate (Thiamine 100 Mg Tablet) 100 mg PO DAILY [facility] Last Admin: 11/24/21 08:05 Dose: 100 mg Documented by: Trazodone HCl (Trazodone 50 Mg Tablet) 50 mg PO BEDTIME PRN PRN Reason: SLEEP Last Admin: 11/24/21 21:03 Dose: 50 mg Documented by: Vitals/I&O/Wt Last Vital Signs Temp 98.0 F 11/25/21 07:09 Pulse 59 L 11/25/21 07:55 Resp 18 11/25/21 07:40 BP 138/63 11/25/21 07:09 Pulse Ox 96 11/25/21 07:40 11/24/21 11/25/21 11/25/21 22:59 06:59 14:59 Intake Total 315 / 735 600 / 1335 Output Total 1000 / 1000 Balance -685 / -265 600 / 335 Weight last 48 hrs Weight 107.91 kg Weight 110.365 kg Physical Exam Narrative: dec edema, sitting up in chair vs noted and stble heent- nc/at, eomi neck supple lungs - exp wheezes. dull bases heart reg abd soft, ascites, + bs ext b/l edema 2+ neuro a,a, o x 3 Urinary Catheter Management: Flores: Cath Placed During This Visit: yes, but has since been removed by the nurse Reason for Continuing Indwelling Catheter: Does Not Meet Criteria Urinary Catheter Date of Insertion: 11/20/21 Urinary Catheter Time of Insertion: 10:50 Date Urinary Catheter Removed: 11/22/21 Time Urinary Catheter Discontinued: 16:16 Data : 11/23/21 05:18 11/25/21 04:12 A&P Assessment and plan (1) Hyponatremia: see below Status: Acute Plan 56 yr old man 1. Hypervolemic hyponatremia elevated ur na and cirrhosis. -beer potomania normal cortisol tsh 5 - appears volume overloaded. serum na improving -recommend lasix, albumin and salt tabs -when d/c home, attempt to monitor chemistries twice a week- and close f/u w/ medicine -pt needs free water restriction- 1400 ml/ day 2. replete k and mag- low from diuretics 3. htn- improving w/ fluid removal 4. dm control Patient seen and examined via telemedicine, with the assistance of the bedside RN > 25 min spent in evaluation and mgmt of patient Attestations Medical Necessity Statement*: diuresis, monitor electrolytes Time Spent in Patient Care: 16 - 35 minutes (>than 50% of time spent in counselling and/or direct pt care on unit) . 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
[2021-11-25] MEDS: potassium chloride oral liq 20 mEq/15 mL UDC 40 MEQ PO (08:45)
[2021-11-25] MEDS: propranolol 20 mg Tablet 10 MG PO (08:46)
[2021-11-25] MEDS: sodium chloride 1 gm Tablet PO (08:46)
[2021-11-25] MEDS: levothyroxine 50 mcg Tablet PO (08:46)
[2021-11-25] MEDS: magnesium oxide 400 mg tablet PO (08:46)
[2021-11-25] MEDS: thiamine 100 mg Tablet PO (08:46)
[2021-11-25] MEDS: predniSONE 20 mg Tablet 40 MG PO (08:46)
[2021-11-25] MEDS: multivitamin therapeutic Tablet 1 TAB PO (08:46)
[2021-11-25] MEDS: FUROsemide 10 mg/mL SDV 4mL 40 MG IVP (08:46)
[2021-11-25] MEDS: folic acid 1 mg Tablet PO (08:46)
--- NOTE | 2021-11-25 10:34 | PM.DCS ---
Discharge Providers Date of Admission: 11/17/21 17:53 Date of Discharge: November 25, 2021 Attending Provider at Admission: Nahid Georges MD Attending Provider at Discharge: Michael Frey MD Primary Care Provider: Elizabeth Gagnon MD Diagnoses at Discharge Discharge Diagnosis (1) Hyponatremia: Status: Acute Reason for Visit Reason for Visit: SOB X 2 DAY Hospital Course Hospital Course HPI : Dr: Nahid Georges MD 56 year old male with a past medical history of chronic back pain, status post laminectomy, hypothyroidism, history of COPD, current smoker, history of marijuana use, history of alcoholism, who presents [facility] for multiple complaints he tells me He tells me for the last 3 days, he suddenly has felt more short of breath, he does report hemoptysis, increase shortness of breath with exertion, bilateral from edema, increased abdominal distention tension, does report low-grade fevers, has not received COVID vaccine, has not received flu vaccine, no known sick contacts.Denies a history of CHF, but does report increased shortness of breath, increased pallor extreme edema, no history of CAD, no chest pain reported.Does report history of COPD, history of smoking, is not on inhalers at home, has never seen a maintenance mechanic telephone.Does report a history of alcoholism, at one point he reports drinking more than a sixpack a day, his last alcohol drink was this morning no, no history of alcohol withdrawal.Does report a history of elevated blood sugars, he tells me that he does not have a history of diabetes, typically alcohol brings down his blood sugar.Denies drinking too much fluid, denies any drug use, has a history of hypothyroidism, taking his medication as prescribed, does take Cymbalta.Does report severe lower back pain, increased back pain with range of motion, has a history of back pain with laminectomy is on disability, he tells me that he is primary care physician refuses to give him pain medications. Hospital course: He was admitted for management of acute on chronic hypoxic hypercapnic respiratory failure secondary to COPD exacerbation as well as influenza, pneumonia. CT angiogram negative for pulmonary emboli 2D echocardiogram: LV systolic function is normal with EF of 55 to 60%, grade 1 diastolic dysfunction RV dilated, no gross valvular heart disease. Sputum Gram stain and culture:GNR: Pseudomonas.A, blood culture was negative, urine Legionella antigen negative, bacterial antigen panel negative , patient completed 5-day course of Tamiflu, was kept on antibiotics during the hospital stay, he was kept on ceftriaxone , levofloxacin , was discharged on levofloxacin 750 mg p.o. daily for additional 5 days to complete total 10 days of antibiotic course, he was also on steroids, DuoNeb's, supplemental oxygen as needed , BIPAP, at the time of discharge he qualified for 2 L home oxygen. He was also managed for hypervolemic hyponatremia likely secondary to fluid overload secondary to chronic alcoholism CT abdomen pelvis showed hepatomegaly, splenomegaly, moderate ascites, patient was kept on fluid restriction, IV as well as oral Lasix Albumin, salt tablet,ultrasound abdomen was done to attempt for paracentesis, inadequate fluid, Patient responded well to diuresis, at the time of discharge his serum sodium was 131, global edema was improving, he was discharged on, Lasix 40 p.o. daily, Aldactone 25 mg p.o. daily, salt tablets, oral potassium, he has been asked to see his primary care physician in 1 week, with a repeat BMP, for further optimization of Lasix and spironolactone. He was also managed for metabolic encephalopathy secondary to hyponatremia , hypercapnia ,hepatic encephalopathy, he was kept on Lactulose, electrolyte abnormality correction was undertaken, ammonia was monitored, at the time of discharge he was alert oriented x3. He was also monitored for alcohol withdrawal, was kept on CIWA protocol, is being discharged on thiamine folic acid multivitamin For his history of hypothyroidism he was continued on levothyroxine, thrombocytopenia likely secondary to alcoholism. Patient responded well to above medical management at the time of discharge he was hemodynamically stable. He will continue to follow with his primary care physician as an outpatient. Physical Exam Const: COMMON NORMALS: patient oriented x3 HENMT: COMMON NORMALS: normocephalic and atraumatic HEAD & SCALP: normocephalic and atraumatic Chest: COMMONS NORMALS: normal inspection of the chest and normal palpation of entire chest wall CHEST: Yes Symmetrical chest wall rise Resp: COMMON NORMALS: normal respiratory effort, No retractions, No use of accessory muscles and clear to auscultation bilaterally EFFORT & INSPECTION: Yes symmetric chest movement AUSCULTATION: clear to auscultation bilaterally OTHER: Diminished air entry bilaterally. Cardio: COMMON NORMALS: regular rate, regular rhythm, S1 normal heart sound present, S2 normal heart sound present, No gallops present (Cardio), No murmurs present (Cardio), No rub (Cardio) and Peripheral pulses 2+ throughout RATE: regular rate RHYTHM: regular rhythm HEART SOUNDS: S1 normal heart sound present and S2 normal heart sound present PERIPHERAL PULSES: Peripheral pulses 2+ throughout GI: COMMON NORMALS: Normal to inspection, nondistended, normoactive bowel sounds present, Soft to palpation, non-tender, No hepatosplenomegaly present and no masses AUSCULTATION: Yes normoactive bowel sounds PALPATION: Yes Soft to palpation and Yes No hepatosplenomegaly present RECTAL EXAM: Yes deferred Extremity: COMMON NORMALS: no clubbing, cyanosis or edema and no pedal edema OTHER: 2+ bilateral lower extremity edema present Neuro: COMMON NORMALS: patient oriented x3 Urinary Catheter Management: Flores: Cath Placed During This Visit: yes, but has since been removed by the nurse Reason for Continuing Indwelling Catheter: Does Not Meet Criteria Urinary Catheter Date of Insertion: 11/20/21 Urinary Catheter Time of Insertion: 10:50 Date Urinary Catheter Removed: 11/22/21 Time Urinary Catheter Discontinued: 16:16 Discharge Data Studies Completed and Pending Completed Studies During Hospitalization Category Date Time Status CT abdomen pelvis wo con [id number] Urgent Cat Scan 11/17/21 19:[address] angio chest PE protcl [id number] Stat Cat Scan 11/17/21 18:38 Completed XR chest 1V portable [id number] Urgent Exams 11/17/21 16:45 Completed CV. echo complete* [id number] Routine Ultrasound 11/17/21 19:06 Completed US abdomen limited [id number] Routine Ultrasound 11/18/21 17:20 Completed Pending at discharge Category Date Time Status Blood Culture AM LABS Lab 11/21/21 05:23 Results Comprehensive Metabolic Panel AM LABS Lab 11/26/21 04:00 Ordered Magnesium AM LABS Lab 11/26/21 04:00 Ordered Phosphorus AM LABS Lab 11/26/21 04:00 Ordered Radiology Impressions Chest X-Ray 11/17/21 16:45 IMPRESSION: No acute infiltrate Chest CTA 11/17/21 18:38 IMPRESSION: 1. Negative for pulmonary embolus or airspace infiltrate. 2. Large amount of ascites in abdomen. 3. Coronary artery atherosclerotic calcifications. 4. Cholelithiasis 5. Subcutaneous edema over the abdomen. Abdomen/Pelvis CT 11/17/21 19:06 IMPRESSION: 1. Negative for focal acute inflammatory process in the abdomen or pelvis. 2. Coronary artery atherosclerotic calcifications. 3. Liver enlarged. 4. Spleen enlarged at 13.6 cm. 5. Cholelithiasis. 6. Moderate ascites in the abdomen. 7. Subcutaneous edema about the abdomen. Abdomen Ultrasound 11/18/21 17:20 IMPRESSION: Trace upper abdominal ascites Laboratory Results WBC 7.6 10^3/uL (4.0-10.0) 11/23/21 05:18 RBC 3.27 10^6/uL (4.1-5.3) L 11/23/21 05:18 Hgb 12.1 g/dL (11.7-16.6) 11/23/21 05:18 Hct 34.6 % (42.0-52.0) L 11/23/21 05:18 MCV 105.8 fl (80-94) H 11/23/21 05:18 MCH 37.0 pg (28.0-34.0) H 11/23/21 05:18 MCHC 35.0 g/dL (30.0-36.0) 11/23/21 05:18 RDW 13.8 % (12.1-15.1) 11/23/21 05:18 Plt Count 82 10^3/cmm (130-400) L 11/23/21 05:18 MPV 10.3 fL (7.4-10.4) 11/23/21 05:18 Neut % (Auto) 67.6 % 11/23/21 05:18 Lymph % (Auto) 19.6 % 11/23/21 05:18 [place] % (Auto) 11.3 % 11/23/21 05:18 Eos % (Auto) 0.3 % 11/23/21 05:18 Baso % (Auto) 0.3 % 11/23/21 05:18 Neut # (Auto) 5.11 10^3/uL (1.8-7.7) 11/23/21 05:18 Lymph # (Auto) 1.5 10^3/uL (0.8-4.8) 11/23/21 05:18 [place] # (Auto) 0.9 10^3/uL (0.2-0.9) 11/23/21 05:18 Eos # (Auto) 0.0 10^3/uL (0.0-0.8) 11/23/21 05:18 Baso # (Auto) 0.0 10^3/uL (0.0-0.1) 11/23/21 05:18 Nucleated RBC % (auto) 0 % 11/23/21 05:18 Nucleated RBCs # 0.0 /100WBC 11/23/21 05:18 Specimen Type Arterial 11/19/21 13:18 Sample Site Radial, right 11/19/21 13:18 ABG pH 7.35 (7.35-7.45) 11/19/21 13:18 ABG pCO2 67.9 mmHg (35-45) H* 11/19/21 13:18 ABG pO2 65.8 mmHg (80.0-100.0) L 11/19/21 13:18 ABG HCO3 37.4 mmol/L (22-26) H 11/19/21 13:18 ABG O2 Saturation 93.3 11/19/21 13:18 ABG Base Excess 9.6 mmol/L (-2.0-2.0) H 11/19/21 13:18 Ward Test Pos 11/19/21 13:18 A-a O2 Gradient 10.5 mmHg (5-10) H 11/19/21 13:18 Hematocrit 34.0 % (42-52) L 11/19/21 13:18 Hgb O2 Saturation 93.6 % (95-100) L 11/19/21 13:18 Carboxyhemoglobin 1.3 %THgb (0.4-20.1) 11/19/21 13:18 Methemoglobin < 0.0 % (0.4-1.5) L 11/19/21 13:18 Total Hemoglobin 11.1 g/dL (14-18) L 11/19/21 13:18 Sodium 128.0 mmol/L (131-143) L 11/19/21 13:18 Potassium 5.5 mmol/L (3.5-5.0) H 11/19/21 13:18 Glucose 160.0 mg/dL (70-115) H 11/19/21 13:18 Ionized Calcium 1.2 mmol/L (1.1-1.4) 11/19/21 13:18 O2 Delivery Device Nc 11/19/21 13:18 O2 Liters/Min 3.0 % 11/19/21 13:18 FiO2 32.0 % 11/19/21 13:18 Party Demonstrator ID Amh 11/19/21 13:18 Sodium 131 mmol/L (136-145) L 11/25/21 04:12 Potassium 3.1 mmol/L (3.5-5.1) L 11/25/21 04:12 Chloride 89 mmol/L (98-107) L 11/25/21 04:12 Carbon Dioxide 35 mmol/L (22-29) H 11/25/21 04:12 Anion Gap 10.1 (5-19) 11/25/21 04:12 BUN 10 mg/dL (6-20) 11/25/21 04:12 Creatinine 0.4 mg/dL (0.7-1.2) L 11/25/21 04:12 GFR Calculation 223.3 mL/min (90-130) H 11/25/21 04:12 Glucose 191 mg/dL (65-115) H 11/25/21 04:12 POC Glucose 197 mg/dL (70-110) H 11/25/21 06:11 Estimat Average Glucose 120 11/17/21 16:50 Hemoglobin A1c 5.8 % (4.0-6.0) 11/17/21 16:50 Calculated Osmolality 276 mOsm/kg (285-295) L 11/25/21 04:12 Lactate 1.4 mmol/L (0.5-2.2) 11/20/21 09:24 Calcium 8.3 mg/dL (8.5-10.5) L 11/25/21 04:12 Phosphorus 2.7 mg/dL (2.5-4.5) 11/25/21 04:12 Magnesium 1.8 mg/dL (1.7-2.3) 11/25/21 04:12 Total Bilirubin 2.7 mg/dL (0.15-1.2) H 11/25/21 04:12 Direct Bilirubin 1.50 mg/dL (0.00-0.30) H 11/17/21 16:50 GGT 99 U/L (8-61) H 11/17/21 16:50 AST 56 U/L (0-40) H 11/25/21 04:12 ALT 46 U/L (0-41) H 11/25/21 04:12 Alkaline Phosphatase 102 IU/L (40-130) 11/25/21 04:12 Ammonia 39 umol/L (16-60) 11/20/21 09:24 Creatine Kinase 429 U/L (39-308) H* 11/20/21 09:24 Troponin T Baseline 21 ng/L (0-15) H 11/17/21 16:50 Troponin T 120 Minute 18.68 ng/L (0-15) H 11/17/21 18:46 Delta Troponin T -2.32 ABS# (0-10) L 11/17/21 18:46 Troponin T Hi Sens 6Hr 15.57 ng/L (0-15) H 11/17/21 22:53 Troponin T Hi Sens 6Hr Delta -5.43 ng/L (0-12) L 11/17/21 22:53 C-Reactive Protein 8.2 mg/L (0.0-4.9) H 11/20/21 09:24 NT-Pro-B Natriuret Pep 332 pg/mL (0-125) H 11/20/21 09:24 Total Protein 7.1 g/dL (6.6-8.7) 11/25/21 04:12 Albumin 3.1 g/dL (3.5-5.2) L 11/25/21 04:12 Globulin 4.0 g/dL (1.3-4.6) 11/25/21 04:12 Lipase 57 U/L (13-60) 11/17/21 18:46 Vitamin B12 1141 pg/mL (232-1245) 11/17/21 18:46 Procalcitonin 0.07 ng/mL (0-0.5) 11/20/21 09:24 TSH 5.67 uIU/mL (0.27-4.20) H 11/17/21 16:50 Random Cortisol 22.29 ug/dL (2.47-19.5) H 11/17/21 16:50 Urine Color Yellow (Yellow) 11/20/21 14:15 Urine Appearance Clear (CLEAR) 11/20/21 14:15 Urine pH 5 (5-7) 11/20/21 14:15 Ur Specific [place] 1.010 (1.005-1.030) 11/20/21 14:15 Urine Protein Neg (Negative) 11/20/21 14:15 Urine Glucose (UA) Norm (Normal) 11/20/21 14:15 Urine Ketones Negative (Negative) 11/20/21 14:15 Urine Blood 2+ (Negative) H 11/20/21 14:15 Urine Nitrate Negative (Negative) 11/20/21 14:15 Urine Bilirubin Neg (Negative) 11/20/21 14:15 Urine Urobilinogen Neg mg/dL (Negative) 11/20/21 14:15 Ur Leukocyte Esterase Negative (Negative) 11/20/21 14:15 Urine RBC 5-10 /hpf (0-2) H 11/20/21 14:15 Urine WBC 0-4 /hpf (0-5) H 11/20/21 14:15 Ur Eosinophil Smear 0 (0-0) 11/20/21 14:15 Ur Squamous Epith Cells Rare /hpf (0-5) 11/20/21 14:15 Amorphous Sediment Not Reportable 11/20/21 14:15 Urine Bacteria Trace /hpf (NONE) 11/20/21 14:15 Urine Eosinophils No eosinophils seen 11/20/21 14:15 Urine Osmolality 327 mOsm/kg (50-1200) 11/20/21 14:15 Ur Random Sodium 100 mmol/L 11/20/21 14:15 Ur Random Sodium 103 mmol/L 11/20/21 14:15 Ur Random Potassium 19 mmol/L 11/20/21 14:15 Ur Random Chloride 140 mmol/L 11/20/21 14:15 Urine Creatinine 14 mg/dL (39-259) L 11/20/21 14:15 Nasal Influ A H1 2008 PCR Not detected (NOT DETECT) 11/17/21 20:05 Urine Opiates Screen Negative ng/mL (Negative) 11/18/21 03:10 Ur Barbiturates Screen Negative ng/mL (Negative) 11/18/21 03:10 Ur Phencyclidine Scrn Negative ng/mL (Negative) 11/18/21 03:10 Ur Amphetamines Screen Negative ng/mL (Negative) 11/18/21 03:10 U Benzodiazepines Scrn Negative ng/mL (Negative) 11/18/21 03:10 Urine Cocaine Screen Negative ng/mL (Negative) 11/18/21 03:10 U Marijuana (THC) Screen Positive ng/mL (Negative) H 11/18/21 03:10 Ethyl Alcohol < 10 mg/dL (0-10) 11/17/21 16:50 Coronavirus 229E (PCR) Not detected (NOT DETECT) 11/17/21 16:50 Hepatitis A IgM Ab Non-reactive (Nonreactive) 11/17/21 16:50 Hep Bs Antigen Non-reactive (Nonreactive) 11/17/21 16:50 Hep B Core IgM Ab Non-reactive (Nonreactive) 11/17/21 16:50 Hepatitis C Antibody Non-reactive (Nonreactive) 11/17/21 16:50 HIV 1&2 Ab & HIV 1 Ag Non-reactive (Non-Reactiv) 11/17/21 16:50 HIV 1&2 Antibody Non-reactive (Non-Reactiv) 11/17/21 16:50 Influenza A (H1) PCR Not detected (NOT DETECT) 11/17/21 20:05 Influenza A (H3) PCR Not detected (NOT DETECT) 11/17/21 20:05 Influenza Type A (PCR) Detected (NOT DETECT) A 11/17/21 20:05 Influenza Type B (PCR) Not detected (NOT DETECT) 11/17/21 20:05 SARS-CoV-2 (PCR) Not detected (NOT DETECT) 11/17/21 16:50 Vitals Last Vital Signs Temp 98.0 F 11/25/21 07:09 Pulse 59 L 11/25/21 07:55 Resp 18 11/25/21 07:40 BP 138/63 11/25/21 07:09 Pulse Ox 96 11/25/21 07:40 Discharge Plan Discharge Patient Disposition: Home Condition: Stable Prescriptions: New sodium chloride 1 gram Tablet 1 g PO TID 15 Days Qty: 45 0RF folic acid 1 mg Tablet 1 mg PO DAILY 30 Days Qty: 30 0RF Vitamin B-1 (mononitrate) 100 mg Tablet 100 mg PO DAILY 30 Days Qty: 30 0RF Thera 400 mcg Tablet 1 tab PO DAILY 30 Days Qty: 30 0RF Lasix 40 mg tablet 40 mg PO DAILY Qty: 30 0RF spironolactone 25 mg tablet 25 mg PO DAILY 30 Days Qty: 30 0RF Klor-Con 10 10 mEq tablet extended release 10 meq PO BID Qty: 60 0RF levofloxacin 750 mg Tablet 750 mg PO Q24H 5 Days Qty: 5 0RF Continued ibuprofen 200 mg Tablet 800 mg PO Q6H PRN (Reason: Pain) 0RF Euthyrox 50 mcg tablet 50 mcg PO QAM 0RF Discharge Orders: Discharge Order (Routine); Ordered 11/25/21 Ordered By: Michael Frey Other Ambulatory Orders: Basic Metabolic Panel (Routine) Timeframe: 1 Week Facility: [facility] - Location: Lab - Main Lab Ordered By: Michael Frey DME: Oxygen (Order) Location: None Selected Ordered By: Michael Frey DME: Walker (Order) Location: None Selected Ordered By: Michael Frey Referrals: [facility] [place] Elizabeth Gagnon MD [Primary Care Provider] - 12/05/21 10:00 am Discharge Diet: Advance as tolerated Discharge Activity: Increase activity as tolerated Patient Instructions: Spironolactone (By mouth), Furosemide (By mouth), Potassium Chloride (By mouth), Folic Acid (By mouth), Hyponatremia (GEN), Hypokalemia (GEN), Hypoxia (GEN), Opioid Safety Activity Restrictions/Additional Instructions: Come back to the emergency room if your symptoms worsen, have any shortness of breath, fever/chills, dehydration, inability tolerate food or drinks, any difficulty breathing, or any new or concerning complaints. Please return the emergency room if your pulse ox reads less than 88%. Discharge Attestations Time Spent in Discharge Care*: greater than 30 min Specific Discharge Activities: educating patient, educating and/or supporting family/caregiver, discussing with pcp/other providers, discussing with patient case manager/social workers/dc planners, documenting/other paperwork and evaluating patient/reviewing data Quality Metrics Clinical Quality Measures [ No reported AMI, CVA or VTE this stay] Coding Level of Care Code Acute Chg FW DC note Exam Detailed Diagnoses Hyponatremia E87.1
[2021-11-25 10:43] LABS: Glucose Point of Care 297 mg/dL (70-110)
--- NOTE | 2021-11-25 13:01 | PC.NURSE ---
Discharge education reviewed with patient and all questions asked. Patient leaving with walker and oxygen tank that was delivered to his room.
== END 2021-11-25 13:37 | disposition home health service (06) | DRG 193 ==
LOC: ER 17:36 → ICU 18:24 → CSU 11-19 09:16 → MEDSURG 11-22 01:29
PROVIDERS: Internal Medicine Nephrology; Admitting Provider Family Medicine; Emergency Provider Emergency Medicine; PCP Family Medicine; Visit Provider Internal Medicine
DX: J09.X1 Influenza due to identified novel influenza A virus with pneumonia (principal); J96.22 Acute and chronic respiratory failure with hypercapnia; J96.21 Acute and chronic respiratory failure with hypoxia; G93.41 Metabolic encephalopathy; J44.1 Chronic obstructive pulmonary disease with (acute) exacerbation; E87.1 Hypo-osmolality and hyponatremia; J44.0 Chronic obstructive pulmonary disease with (acute) lower respiratory infection; R04.2 Hemoptysis; E87.70 Fluid overload, unspecified; F10.20 Alcohol dependence, uncomplicated; R16.2 Hepatomegaly with splenomegaly, not elsewhere classified; E03.9 Hypothyroidism, unspecified; D69.6 Thrombocytopenia, unspecified; F17.210 Nicotine dependence, cigarettes, uncomplicated; E87.5 Hyperkalemia; K70.31 Alcoholic cirrhosis of liver with ascites
CPT/HCPCS: 36415; 36416; 36600; 51702; 71045; 71275; 74176; 76705; 80048; 80051; 80053; 80074; 80076; 80306; 80307; 81001; 82140; 82330; 82436; 82533; 82550; 82570; 82607; 82805; 82962; 82977; 83036; 83605; 83690; 83735; 83880; 83935; 84100; 84133; 84145; 84300; 84443; 84484; 85025; 85999; 86140; 86403; 87040; 87070; 87077; 87086; 87186; 87205; 87449; 87631; 87635; 87806; 93005; 93306; 94640; 94660; 94664; 96372; 96374; 96375; 97116; 97161; 99285; C9113; J0696; J1100; J1940; J1956; J2060; J2405; J2920; J2930; J3411; J3475; J3480; J3490; J7030; J7512; J7626; P9047; Q3014; Q9967

== ENCOUNTER 2022-05-08 18:18 | Emergency (ER) | payer MEDICARE, SELFPAY ==
[2022-05-08] VITALS (13 sets, daily range): BP systolic 124–163; BP diastolic 50–93; PULSE 61–77; RESP 15–21; O2SAT 90–93; BMI 32.2
--- NOTE | 2022-05-08 18:48 | XRR_ITS ---
PROCEDURE INFORMATION: Exam: XR Chest Exam date and time: 05/08/2022 6:55 PM Age: 56 years old Clinical indication: Shortness of breath; Additional info: SOB hypoxia TECHNIQUE: Imaging protocol: Radiologic exam of the chest. Views: 1 view. COMPARISON: CR XR chest 1V portable [id number] 11/17/2021 3:53 PM FINDINGS: Lungs: Lungs are clear bilaterally. Pleural spaces: No pleural effusion. No pneumothorax. Heart/Mediastinum: Stable moderate enlargement of the cardiac silhouette. Mediastinal contours are unremarkable. Bones/joints: Unremarkable for age. XR/XR chest 1V portable [id number] IMPRESSION: 1. No acute cardiopulmonary process. 2. Incidental/nonacute findings are listed in the report.
--- NOTE | 2022-05-08 18:48 | CTR_ITS ---
PROCEDURE INFORMATION: Exam: CT Abdomen And Pelvis Without Contrast Exam date and time: 05/08/2022 7:26 PM Age: 56 years old Clinical indication: Other: Fever, urinary retention, abd pain; Patient HX: Urinary catheter placed approx 1830 today TECHNIQUE: Imaging protocol: Computed tomography of the abdomen and pelvis without contrast. Radiation optimization: All CT scans at this facility use at least one of these dose optimization techniques: automated exposure control; mA and/or kV adjustment per patient size (includes targeted exams where dose is matched to clinical indication); or iterative reconstruction. COMPARISON: CT abdomen pelvis wo con [id number] 11/17/2021 7:33 PM RADIATION DOSE METRICS: Total DLP (mGy-cm): 616.28 FINDINGS: Limitations: Evaluation of solid organs and vasculature is limited without intravenous contrast. Lungs: Visualized lungs are clear. Calcified granuloma in the right lower lobe. Pleural spaces: No pleural effusion. Heart: Visualized portions of the heart are unremarkable. Liver: Stable nodular contour of the liver. Gallbladder and bile ducts: Few stones in the gallbladder. Mild gallbladder wall thickening and small amount of pericholecystic fluid, findings could be due to liver disease versus cholecystitis. Recommend clinical correlation. No biliary ductal dilatation. Pancreas: The pancreas is unremarkable. No pancreatic ductal dilatation. Spleen: The spleen is unremarkable. Adrenal glands: The right and left adrenal glands are unremarkable. Kidneys and ureters: The right and left kidneys are unremarkable. The right and left ureters are unremarkable. Stomach and bowel: See Intraperitoneal space finding. Appendix: No findings to suggest acute appendicitis. Intraperitoneal space: Resolution of ascites, there is mild mesenteric edema redemonstrated however. Multiple foci of free intraperitoneal air in the upper abdomen. There is inflammatory change involving the transverse colon and multiple small bowel loops in the upper and lower abdomen. Findings are concerning for a possible bowel perforation, the site of the perforation is not definitely visualized however. No loculated fluid collections to suggest an abscess. No free intraperitoneal air. No ascites. No loculated fluid collections to suggest an abscess. Vasculature: Stable small/moderate caliber varices in the upper abdomen. Moderate atherosclerotic changes in the visualized arteries. No evidence for aortic aneurysm. Lymph nodes: No lymphadenopathy. Urinary bladder: The bladder is decompressed by a Flores catheter. Reproductive: Unremarkable as visualized. Bones/joints: Degenerative changes in the spine and hips. Soft tissues: Interval resolution of body wall edema. CT/CT abdomen pelvis wo con [id number] IMPRESSION: 1. Multiple foci of free intraperitoneal air in the upper abdomen. There is inflammatory change involving the transverse colon and multiple small bowel loops in the upper and lower abdomen. Findings are concerning for a possible bowel perforation, the site of the perforation is not definitely visualized however. 2. Cholelithiasis. Mild gallbladder wall thickening and small amount of pericholecystic fluid, findings could be due to liver disease versus cholecystitis. Recommend clinical correlation. 3. Stable cirrhotic changes in the liver. Ascites has resolved, there is mild mesenteric edema redemonstrated. Stable small/moderate caliber varices in the upper abdomen. 4. Interval resolution of body wall edema. 5. Incidental/nonacute findings are listed in the report.
--- NOTE | 2022-05-08 18:50 | ECG_ITS ---
[facility] Test Date: 2022-05-08 Pat Name: Eliezer Reynolds Department: Room: Gender: Male Server Administrator: : 1965 Requested By: Evan Alvares Order Number: [id number] Barbosa MD: Lara Diallo M.D. Measurements Intervals [place] Rate: 66 P: 233 [place]: 137 QRS: -81 QRSD: 117 T: 61 QT: 436 QTc: 459 Interpretive Statements SINUS RHYTHM LEFT ANTERIOR FASCICULAR BLOCK [QRS AXIS <= -45, QR IN I, RS IN II] Compared to ECG 11/17/2021 22:54:50 No significant changes Electronically Signed On 05-09-2022 13:15:21 CDT by Lara Diallo M.D. [id number]
[2022-05-08 19:10] LABS: Basophils % 0.2 %; Hematocrit 45.3 % (42.0-52.0); Hemoglobin 15.6 g/dL (11.7-16.6); Lymphocytes # 1.3 10^3/uL (0.8-4.8); Lymphocytes % 20.6 %; Mean Corpuscular HGB Conc 34.4 g/dL (30.0-36.0); Mean Corpuscular Hemoglobin 34.4 pg (28.0-34.0); Mean Platelet Volume 11.2 fL (7.4-10.4); Monocytes # 0.7 10^3/uL (0.2-0.9); Monocytes % 10.8 %; Neutrophils # 4.27 10^3/uL (1.8-7.7); Neutrophils % 68.1 %; Nucleated Red Blood Cells % 0 %; Platelet Count 86 10^3/cmm (130-400); Red Blood Count 4.53 10^6/uL (4.1-5.3); Red Cell Distribution Width 14.7 % (12.1-15.1); White Blood Count 6.3 10^3/uL (4.0-10.0)
--- NOTE | 2022-05-08 19:13 | PC.NURSE ---
Report given to CELIA Mansfield
[2022-05-08] MEDS: sodium chloride 0.9% 1,000 ML 999 ML IV ×2 (19:18→22:14)
[2022-05-08 19:20] LABS: Add Urine Culture? No; Add Urine Microscopic? YES; Bilirubin Urine Neg (Negative); Blood Urine Neg (Negative); Glucose Urine UA Norm (Normal); Ketones Urine Negative (Negative); Leukocyte Esterase Urine Negative (Negative); Nitrate Urine Negative (Negative); Protein Urine 3+ (Negative); RBC Urine 0-4 /hpf (0-2); Squamous Epithelial Cell Urine 0-4 /hpf (0-5); Sulfosalicylic Acid Urine Negative (Negative); Urine Appearance Clear (CLEAR); Urine Color Yellow (Yellow); Urobilinogen Urine 1 mg/dL (Negative); WBC Urine 0-4 /hpf (0-5); pH Urine 8 (5-7)
[2022-05-08 19:26] LABS: Lactate (Lactic Acid level) 2.1 mmol/L (0.5-2.2)
--- NOTE | 2022-05-08 19:33 | PC.NURSE ---
pt out of dept to ct at this time.
[2022-05-08 19:40] LABS: Alanine Aminotransferase 38 U/L (0-41); Albumin Level 3.5 g/dL (3.5-5.2); Alkaline Phosphatase 130 U/L (40-130); Aspartate Amino Transferase 103 U/L (0-40); Blood Urea Nitrogen 6 mg/dL (6-20); C Reactive Protein 11.3 mg/L (0.0-4.9); Carbon Dioxide 25 mmol/L (22-29); Chloride 92 mmol/L (98-107); Creatine Phosphokinase 294 U/L (39-308); Glomerular Filtration Rate 172.6 mL/min (90-130); Glucose 156 mg/dL (65-115); Lipase 77 U/L (13-60); NT Pro B Type Natriuretic Pept 34 pg/mL (0-125); Osmolality Calculated 269 mOsm/kg (285-295); Sodium 129 mmol/L (136-145); Total Bilirubin 1.7 mg/dL (0.15-1.2); Total Protein 8.5 g/dL (6.6-8.7)
--- NOTE | 2022-05-08 19:42 | PC.NURSE ---
patient returned from radiology, lab at bedside to draw lab cultures. patient reports pain to diffuse abd 7/10, gcs 15
--- NOTE | 2022-05-08 19:46 | PC.NURSE ---
attending made aware of serum sodium 129
--- NOTE | 2022-05-08 21:20 | PC.NURSE ---
mouth swabs given to patient, npo status clarified with dr bell.
[2022-05-08] MEDS: metroNIDAZOLE IV 500 MG/100 ML PREMIX 100 MG IV (21:30)
[2022-05-08] MEDS: ciprofloxacin 400 MG/200 ML PREMIX 200 MG IV (21:32)
--- NOTE | 2022-05-08 21:36 | PC.NURSE ---
dr bell notified patient that is requesting update on care and dx results.
--- NOTE | 2022-05-08 21:51 | PC.NURSE ---
attempted to call respiratory for 3rd time without answer.
--- NOTE | 2022-05-08 21:52 | ED_ITS ---
HPI - Male Genitourinary General: Chief complaint: Urogenital-Male Stated complaint: ABDOMINAL PAIN/ FEVER/ NO URINATING Time Seen by Provider: 05/08/22 18:25 History of Present Illness: 56-year-old male presenting with upper abdominal pain. He has a history of alcoholic liver disease chronically. He states he has been running a low-grade temperature today. He also states that he has not urinated since around 130 this morning. He tells me he has been drinking water PFSH ED PFSH: Medical History (Updated 11/26/21 @ 00:01 by ) Acute dyspnea Acute metabolic encephalopathy Alcoholism Ascites COPD (chronic obstructive pulmonary disease) COPD exacerbation Cough Diarrhea Fever Generalized weakness Hyperkalemia Hyponatremia Hypothyroid Hypoxia Influenzal pneumonia Liver cirrhosis Lumbar radiculopathy, chronic Respiratory failure with hypoxia and hypercapnia Shortness of breath Surgical History (Updated 11/17/21 @ 18:34 by Nahid Georges MD) S/P laminectomy with spinal fusion Family History Father CAD (coronary artery disease) Social History (Updated 11/17/21 @ 18:34 by Nahid Georges MD) Smoking and tobacco status: current every day smoker Alcohol intake: current Alcohol intake frequency: 3 or more drinks per day Course Vital Signs: Vital signs: Vital Signs Pulse Rate 70 05/08/22 21:33 Respiratory Rate 20 H 05/08/22 21:33 Blood Pressure 143/84 05/08/22 21:33 Pulse Oximetry 91 05/08/22 21:33 Oxygen Delivery Me thod 05/08/22 21:33 Oxygen Flow Rate 4 05/08/22 21:33 MDM - Male Lab Data : 05/08/22 19:00 05/08/22 19:00 Radiology Impressions Abdomen/Pelvis CT 05/08/22 18:48 IMPRESSION: 1. Multiple foci of free intraperitoneal air in the upper abdomen. There is inflammatory change involving the transverse colon and multiple small bowel loops in the upper and lower abdomen. Findings are concerning for a possible bowel perforation, the site of the perforation is not definitely visualized however. 2. Cholelithiasis. Mild gallbladder wall thickening and small amount of pericholecystic fluid, findings could be due to liver disease versus cholecystitis. Recommend clinical correlation. 3. Stable cirrhotic changes in the liver. Ascites has resolved, there is mild mesenteric edema redemonstrated. Stable small/moderate caliber varices in the upper abdomen. 4. Interval resolution of body wall edema. 5. Incidental/nonacute findings are listed in the report. ADDENDUM: 05/08/222100 THIS REPORT CONTAINS FINDINGS THAT MAY BE CRITICAL TO PATIENT CARE. The findings were verbally communicated via telephone conference with KAUR Jacobs at 8:59 PM CDT on 05/08/2022. The findings were acknowledged and understood. Chest X-Ray 05/08/22 18:48 IMPRESSION: 1. No acute cardiopulmonary process. 2. Incidental/nonacute findings are listed in the report. ADDENDUM: 05/08/222101 Upon further review, there is a small amount of free air underneath the right hemidiaphragm. This was also seen on subsequent CT scan of the abdomen/pelvis. Addended results were discussed with KAUR Jacobs on 05/08/2022 at 9:00 PM CDT. Laboratory Results WBC 6.3 10^3/uL (4.0-10.0) 05/08/22 19:00 RBC 4.53 10^6/uL (4.1-5.3) 05/08/22 19:00 Hgb 15.6 g/dL (11.7-16.6) 05/08/22 19:00 Hct 45.3 % (42.0-52.0) 05/08/22 19:00 MCV 100.0 fl (80-94) H 05/08/22 19:00 MCH 34.4 pg (28.0-34.0) H 05/08/22 19:00 MCHC 34.4 g/dL (30.0-36.0) 05/08/22 19:00 RDW 14.7 % (12.1-15.1) 05/08/22 19:00 Plt Count 86 10^3/cmm (130-400) L 05/08/22 19:00 MPV 11.2 fL (7.4-10.4) H 05/08/22 19:00 Neut % (Auto) 68.1 % 05/08/22 19:00 Lymph % (Auto) 20.6 % 05/08/22 19:00 [place] % (Auto) 10.8 % 05/08/22 19:00 Eos % (Auto) 0.0 % 05/08/22 19:00 Baso % (Auto) 0.2 % 05/08/22 19:00 Neut # (Auto) 4.27 10^3/uL (1.8-7.7) 05/08/22 19:00 Lymph # (Auto) 1.3 10^3/uL (0.8-4.8) 05/08/22 19:00 [place] # (Auto) 0.7 10^3/uL (0.2-0.9) 05/08/22 19:00 Eos # (Auto) 0.0 10^3/uL (0.0-0.8) 05/08/22 19:00 Baso # (Auto) 0.0 10^3/uL (0.0-0.1) 05/08/22 19:00 Nucleated RBC % (auto) 0 % 05/08/22 19:00 Nucleated RBCs # 0.0 /100WBC 05/08/22 19:00 Sodium 129 mmol/L (136-145) L 05/08/22 19:00 Potassium 4.0 mmol/L (3.5-5.1) 05/08/22 19:00 Chloride 92 mmol/L (98-107) L 05/08/22 19:00 Carbon Dioxide 25 mmol/L (22-29) 05/08/22 19:00 Anion Gap 16.0 (5-19) 05/08/22 19:00 BUN 6 mg/dL (6-20) 05/08/22 19:00 Creatinine 0.5 mg/dL (0.7-1.2) L 05/08/22 19:00 GFR Calculation 172.6 mL/min (90-130) H 05/08/22 19:00 Glucose 156 mg/dL (65-115) H 05/08/22 19:00 Calculated Osmolality 269 mOsm/kg (285-295) L 05/08/22 19:00 Lactate 2.1 mmol/L (0.5-2.2) 05/08/22 19:00 Calcium 8.0 mg/dL (8.5-10.5) L 05/08/22 19:00 Total Bilirubin 1.7 mg/dL (0.15-1.2) H 05/08/22 19:00 AST 103 U/L (0-40) H 05/08/22 19:00 ALT 38 U/L (0-41) 05/08/22 19:00 Alkaline Phosphatase 130 U/L (40-130) 05/08/22 19:00 Creatine Kinase 294 U/L (39-308) 05/08/22 19:00 C-Reactive Protein 11.3 mg/L (0.0-4.9) H 05/08/22 19:00 NT-Pro-B Natriuret Pep 34 pg/mL (0-125) 05/08/22 19:00 Total Protein 8.5 g/dL (6.6-8.7) 05/08/22 19:00 Albumin 3.5 g/dL (3.5-5.2) 05/08/22 19:00 Globulin 5.0 g/dL (1.3-4.6) H 05/08/22 19:00 Lipase 77 U/L (13-60) H 05/08/22 19:00 Urine Color Yellow (Yellow) 05/08/22 19:00 Urine Appearance Clear (CLEAR) 05/08/22 19:00 Urine pH 8 (5-7) H 05/08/22 19:00 Ur Specific [place] 1.010 (1.005-1.030) 05/08/22 19:00 Urine Protein 3+ (Negative) H 05/08/22 19:00 Urine Glucose (UA) Norm (Normal) 05/08/22 19:00 Urine Ketones Negative (Negative) 05/08/22 19:00 Urine Blood Neg (Negative) 05/08/22 19:00 Urine Nitrate Negative (Negative) 05/08/22 19:00 Urine Bilirubin Neg (Negative) 05/08/22 19:00 Prot Sulfosalicylic Acd Negative (Negative) 05/08/22 19:00 Urine Urobilinogen 1 mg/dL (Negative) H 05/08/22 19:00 Ur Leukocyte Esterase Negative (Negative) 05/08/22 19:00 Urine RBC 0-4 /hpf (0-2) H 05/08/22 19:00 Urine WBC 0-4 /hpf (0-5) H 05/08/22 19:00 Ur Squamous Epith Cells 0-4 /hpf (0-5) H 05/08/22 19:00 Amorphous Sediment Not Reportable 05/08/22 19:00 Urine Bacteria None /hpf (NONE) 05/08/22 19:00 Discharge Plan Discharge Condition: Stable Prescriptions: No Action levothyroxine [Euthyrox] 50 mcg tablet 50 mcg PO QAM potassium chloride [Klor-Con 10] 10 mEq tablet extended release 10 meq PO BID Qty: 60 0RF spironolactone 25 mg tablet 25 mg PO EVERY OTHER DAY trazodone 50 mg tablet 50 mg PO BEDTIME PRN (Reason: Insomnia) Referrals: Elizabeth Gagnon MD [Primary Care Provider] - Coding Level of Care Code ED Credit Manager for ce Merritt
--- NOTE | 2022-05-08 21:54 | W.ED.ABDPA2 ---
HPI - Abdominal Pain General: Chief Complaint: Urogenital-Male Stated Complaint: ABDOMINAL PAIN/ FEVER/ NO URINATING Time Seen by Provider: 05/08/22 18:25 Source: patient History of Present Illness: 56-year-old male presenting with upper abdominal pain. He has a history of alcoholic liver disease chronically. He states he has been running a low-grade temperature today. He also states that he has not urinated since around 130 this morning. He tells me he has been drinking water. MD elicited complaint: abdominal pain Pertinent past history: other Onset (ago): hour(s) Location: Diffuse Severity: moderate Quality: aching Radiation: none Migration to: no migration Exacerbating factors: nothing Relieving factors: nothing Associated Symptoms: Reports bloating, chills, fever(s), nausea and poor appetite; Denies change in bowel habits, coffee ground emesis, constipation, diarrhea, hematochezia, melena and vomiting Review of Systems Const: Reports: fever(s) and chills Eyes: Denies: change in vision Card: Denies: chest pain or palpitations Resp: Reports: dyspnea; Denies: productive cough or non-productive cough GI: Reports: nausea and bloating; Denies: vomiting, coffee ground emesis, diarrhea, constipation, change in bowel habits, hematochezia or melena PFSH ED PFSH: Medical History Acute dyspnea Acute metabolic encephalopathy Alcoholism Ascites COPD (chronic obstructive pulmonary disease) COPD exacerbation Cough Diarrhea Fever Generalized weakness Hyperkalemia Hyponatremia Hypothyroid Hypoxia Influenzal pneumonia Liver cirrhosis Lumbar radiculopathy, chronic Respiratory failure with hypoxia and hypercapnia Shortness of breath Surgical History (Updated 11/17/21 @ 18:34 by Nahid Georges MD) S/P laminectomy with spinal fusion Family History Father CAD (coronary artery disease) Social History (Updated 11/17/21 @ 18:34 by Nahid Georges MD) Smoking and tobacco status: current every day smoker Alcohol intake: current Alcohol intake frequency: 3 or more drinks per day Physical Exam Const: GENERAL APPEARANCE: cooperative, lethargic (mildly) and ill appearing; not comfortable ORIENTATION/CONSCIOUSNESS: Yes lethargic (mildly) HENMT: COMMON NORMALS: normocephalic and atraumatic HEAD & SCALP: normocephalic and atraumatic FACE & SINUS: normal facial exam THROAT: posterior oropharynx normal Eye: COMMON NORMALS: Equal, round and reactive pupils present and EOMs intact bilaterally SCLERA: sclerae normal PUPIL: Yes Equal, round and reactive pupils present Neck/C-Spine: COMMON NORMALS: full ROM GENERAL: Yes trachea midline Chest: CHEST: Yes Symmetrical chest wall rise Resp: COMMON NORMALS: normal respiratory effort, No use of accessory muscles and clear to auscultation bilaterally AUSCULTATION: clear to auscultation bilaterally Cardio: COMMON NORMALS: regular rate and regular rhythm RATE: regular rate RHYTHM: regular rhythm GI: COMMON NORMALS: Soft to palpation INSPECTION: Yes abdominal distension PALPATION: Yes Soft to palpation, Yes Tenderness to palpation present (GI) (diffuse, upper) and Yes Guarding due to palpation present (GI) : COMMON NORMALS: Yes no CVA tenderness BLADDER/KIDNEY EXAM: Yes no CVA tenderness Back/Pelvis: COMMON NORMALS: no CVA tenderness Extremity: GENERAL: Yes edema (Mild) Neuro: DALE COMA SCALE: document GCS findings Dale coma scale eye opening: Spontaneous Dale coma scale verbal response: Orientated Dale coma scale motor response: Obey commands Dale coma scale total score: 15 SENSORIUM/ORIENTATION: Yes lethargic (mildly) Course Vital Signs: Vital signs: Vital Signs Pulse Rate 68 05/08/22 23:28 Respiratory Rate 17 05/08/22 23:28 Blood Pressure 163/93 05/08/22 23:28 Pulse Oximetry 92 05/08/22 23:28 Oxygen Delivery Me thod 05/08/22 23:27 Oxygen Flow Rate 4 05/08/22 22:44 MDM - Abdominal Pain Medical Decision Making 56-year-old gentleman with a history of alcoholic liver disease. He presents with belly pain, and he says a low-grade fever at home. Heart rate 63, sinus. Blood pressure 145/78, saturations 90% on 2 L. His respirations are 14. His CBC shows a white blood cell count of 6.3, hemoglobin 15.6, platelet count of 86. BUN and creatinine are normal. His sodium is 129. He is receiving 2 L of fluid here. He has received Cipro and Flagyl via IV. He is penicillin allergic. CT of the abdomen pelvis was performed and shows multiple small foci of free intraperitoneal air in the upper abdomen. There is inflammatory change in the transverse colon and loops of small bowel, but no clear source of the free air. I spoke with our surgeon here. He is concerned about lack of resources here due to no subspecialty services such as gastroenterology or hepatology, as well as inpatient hematology oncology. We have no platelets in house for transfusion here. He suggests we transfer to higher level of care to treat this patient in case surgery and/or transfusion is necessary. We spoke with the [facility], who evidently is willing to accept. Lab Data : 05/08/22 19:00 05/08/22 19:00 Labs/Radiology: Radiology Impressions Abdomen/Pelvis CT 05/08/22 18:48 IMPRESSION: 1. Multiple foci of free intraperitoneal air in the upper abdomen. There is inflammatory change involving the transverse colon and multiple small bowel loops in the upper and lower abdomen. Findings are concerning for a possible bowel perforation, the site of the perforation is not definitely visualized however. 2. Cholelithiasis. Mild gallbladder wall thickening and small amount of pericholecystic fluid, findings could be due to liver disease versus cholecystitis. Recommend clinical correlation. 3. Stable cirrhotic changes in the liver. Ascites has resolved, there is mild mesenteric edema redemonstrated. Stable small/moderate caliber varices in the upper abdomen. 4. Interval resolution of body wall edema. 5. Incidental/nonacute findings are listed in the report. ADDENDUM: 05/08/222100 THIS REPORT CONTAINS FINDINGS THAT MAY BE CRITICAL TO PATIENT CARE. The findings were verbally communicated via telephone conference with EVAN Jacobs at 8:59 PM CDT on 05/08/2022. The findings were acknowledged and understood. Chest X-Ray 05/08/22 18:48 IMPRESSION: 1. No acute cardiopulmonary process. 2. Incidental/nonacute findings are listed in the report. ADDENDUM: 05/08/222101 Upon further review, there is a small amount of free air underneath the right hemidiaphragm. This was also seen on subsequent CT scan of the abdomen/pelvis. Addended results were discussed with EVAN Jacobs on 05/08/2022 at 9:00 PM CDT. Laboratory Results WBC 6.3 10^3/uL (4.0-10.0) 05/08/22 19:00 RBC 4.53 10^6/uL (4.1-5.3) 05/08/22 19:00 Hgb 15.6 g/dL (11.7-16.6) 05/08/22 19:00 Hct 45.3 % (42.0-52.0) 05/08/22 19:00 MCV 100.0 fl (80-94) H 05/08/22 19:00 MCH 34.4 pg (28.0-34.0) H 05/08/22 19:00 MCHC 34.4 g/dL (30.0-36.0) 05/08/22 19:00 RDW 14.7 % (12.1-15.1) 05/08/22 19:00 Plt Count 86 10^3/cmm (130-400) L 05/08/22 19:00 MPV 11.2 fL (7.4-10.4) H 05/08/22 19:00 Neut % (Auto) 68.1 % 05/08/22 19:00 Lymph % (Auto) 20.6 % 05/08/22 19:00 [place] % (Auto) 10.8 % 05/08/22 19:00 Eos % (Auto) 0.0 % 05/08/22 19:00 Baso % (Auto) 0.2 % 05/08/22 19:00 Neut # (Auto) 4.27 10^3/uL (1.8-7.7) 05/08/22 19:00 Lymph # (Auto) 1.3 10^3/uL (0.8-4.8) 05/08/22 19:00 [place] # (Auto) 0.7 10^3/uL (0.2-0.9) 05/08/22 19:00 Eos # (Auto) 0.0 10^3/uL (0.0-0.8) 05/08/22 19:00 Baso # (Auto) 0.0 10^3/uL (0.0-0.1) 05/08/22 19:00 Nucleated RBC % (auto) 0 % 05/08/22 19:00 Nucleated RBCs # 0.0 /100WBC 05/08/22 19:00 PT 15.10 SECONDS (12.1-14.9) H 05/08/22 19:00 INR 1.16 (0.8-1.2) 05/08/22 19:00 Sodium 129 mmol/L (136-145) L 05/08/22 19:00 Potassium 4.0 mmol/L (3.5-5.1) 05/08/22 19:00 Chloride 92 mmol/L (98-107) L 05/08/22 19:00 Carbon Dioxide 25 mmol/L (22-29) 05/08/22 19:00 Anion Gap 16.0 (5-19) 05/08/22 19:00 BUN 6 mg/dL (6-20) 05/08/22 19:00 Creatinine 0.5 mg/dL (0.7-1.2) L 05/08/22 19:00 GFR Calculation 172.6 mL/min (90-130) H 05/08/22 19:00 Glucose 156 mg/dL (65-115) H 05/08/22 19:00 Calculated Osmolality 269 mOsm/kg (285-295) L 05/08/22 19:00 Lactate 2.1 mmol/L (0.5-2.2) 05/08/22 19:00 Calcium 8.0 mg/dL (8.5-10.5) L 05/08/22 19:00 Total Bilirubin 1.7 mg/dL (0.15-1.2) H 05/08/22 19:00 AST 103 U/L (0-40) H 05/08/22 19:00 ALT 38 U/L (0-41) 05/08/22 19:00 Alkaline Phosphatase 130 U/L (40-130) 05/08/22 19:00 Creatine Kinase 294 U/L (39-308) 05/08/22 19:00 C-Reactive Protein 11.3 mg/L (0.0-4.9) H 05/08/22 19:00 NT-Pro-B Natriuret Pep 34 pg/mL (0-125) 05/08/22 19:00 Total Protein 8.5 g/dL (6.6-8.7) 05/08/22 19:00 Albumin 3.5 g/dL (3.5-5.2) 05/08/22 19:00 Globulin 5.0 g/dL (1.3-4.6) H 05/08/22 19:00 Lipase 77 U/L (13-60) H 05/08/22 19:00 Urine Color Yellow (Yellow) 05/08/22 19:00 Urine Appearance Clear (CLEAR) 05/08/22 19:00 Urine pH 8 (5-7) H 05/08/22 19:00 Ur Specific [place] 1.010 (1.005-1.030) 05/08/22 19:00 Urine Protein 3+ (Negative) H 05/08/22 19:00 Urine Glucose (UA) Norm (Normal) 05/08/22 19:00 Urine Ketones Negative (Negative) 05/08/22 19:00 Urine Blood Neg (Negative) 05/08/22 19:00 Urine Nitrate Negative (Negative) 05/08/22 19:00 Urine Bilirubin Neg (Negative) 05/08/22 19:00 Prot Sulfosalicylic Acd Negative (Negative) 05/08/22 19:00 Urine Urobilinogen 1 mg/dL (Negative) H 05/08/22 19:00 Ur Leukocyte Esterase Negative (Negative) 05/08/22 19:00 Urine RBC 0-4 /hpf (0-2) H 05/08/22 19:00 Urine WBC 0-4 /hpf (0-5) H 05/08/22 19:00 Ur Squamous Epith Cells 0-4 /hpf (0-5) H 05/08/22 19:00 Amorphous Sediment Not Reportable 05/08/22 19:00 Urine Bacteria None /hpf (NONE) 05/08/22 19:00 Ethyl Alcohol < 10 mg/dL (0-10) 05/08/22 19:00 Discharge Plan Discharge Patient Disposition: Xfer Short-Term Hosp Clinical Impression: Bowel perforation, Hyponatremia Condition: Fair Referrals: Elizabeth Gagnon MD [Primary Care Provider] - Coding Level of Care Code ED Submarine Cable Equipment Technician for Chg Fwd Exam Comprehensive
--- NOTE | 2022-05-08 21:56 | PC.NURSE ---
Addendum entered by Shyla Rocha RN 05/08/22 21:58: RT found in person and notified of orders for ABGs, attending notified that patient is requesting to speak with him. Patient notified that eli, neighbor, called to notify him that his children are doing well. verbalized thanks. Original Note: RT found in person and notified of orders for ABGs, Dr Melendrez notified that patient is requesting to speak with him.
[2022-05-08 22:07] LABS: INR 1.16 (0.8-1.2)
[2022-05-08 22:11] LABS: Alcohol Level < 10 mg/dL (0-10)
--- NOTE | 2022-05-08 22:14 | PC.NURSE ---
patient refused ABGs, Dr Nuñez aware.
--- NOTE | 2022-05-08 23:11 | PC.NURSE ---
report called to Nelly Marc RN, accepted to [id number] under the care of Dr. Jennings.
--- NOTE | 2022-05-08 23:27 | PC.NURSE ---
consent for transfer signed.
--- NOTE | 2022-05-08 23:31 | PC.NURSE ---
report given to [facility] at bedside. [facility] transfer triage nurse notified that patient is leaving at this time.
== END 2022-05-08 23:38 | disposition short-term general hospital (02) ==
PROVIDERS: Emergency Provider Emergency Medicine; PCP Family Medicine
DX: K63.1 Perforation of intestine (nontraumatic) (principal); E87.1 Hypo-osmolality and hyponatremia; J44.9 Chronic obstructive pulmonary disease, unspecified; F17.210 Nicotine dependence, cigarettes, uncomplicated
CPT/HCPCS: 36415; 51702; 71045; 74176; 80053; 80307; 81001; 82550; 83605; 83690; 83880; 85025; 85610; 86140; 87040; 93005; 99285; J0744; J7030; S0030

== ENCOUNTER 2023-02-18 12:17 | Inpatient (IN) | payer MEDICARE, SELFPAY ==
[2023-02-18] VITALS (13 sets, daily range): BP systolic 113–162; BP diastolic 63–86; PULSE 76–101; RESP 16–24; TEMP 36.9–38.6; O2SAT 90–100; BMI 34.4
--- NOTE | 2023-02-18 12:21 | ECG_ITS ---
[facility] Test Date: 2023-02-18 Pat Name: Eliezer Reynolds Department: Room: Gender: Male Glue Mixer: : 1965 Requested By: Kory Loco Order Number: [id number] Chelsey MD: Lara Diallo M.D. Measurements Intervals [place] Rate: 96 P: 66 ND: 175 QRS: -86 QRSD: 109 T: 63 QT: 343 QTc: 435 Interpretive Statements SINUS RHYTHM PATTERN CONSISTENT WITH PULMONARY DISEASE LEFT ANTERIOR FASCICULAR BLOCK [QRS AXIS <= -45, QR IN I, RS IN II] Compared to ECG 05/08/2022 19:04:29 No significant changes Electronically Signed On 02-18-2023 16:34:21 CDT by Lara Diallo M.D. [id number] f
--- NOTE | 2023-02-18 12:21 | XRR_ITS ---
PROCEDURE INFORMATION: Exam: XR Chest Exam date and time: 02/18/2023 12:39 PM Age: 57 years old Clinical indication: Shortness of breath; Additional info: Dyspnea/cough; History of smoking. TECHNIQUE: Imaging protocol: Radiologic exam of the chest. Views: 1 view. COMPARISON: CR XR chest 1V portable [id number] 05/08/2022 6:55 PM FINDINGS: Tubes, catheters and devices: Overlying monitor leads are seen. Lungs: Unremarkable. No consolidation. Pleural spaces: Unremarkable. No pleural effusion. No pneumothorax. Heart/Mediastinum: Unremarkable. No cardiomegaly. Bones/joints: Visualized osseous structures show no acute abnormality. XR/XR chest 1V portable [id number] IMPRESSION: No acute cardiopulmonary abnormality.
--- NOTE | 2023-02-18 12:24 | W.ED.SOB ---
HPI - SOB/Dyspnea General: Chief Complaint: Shortness of Breath/Dyspnea Stated Complaint: POSSIBLE PNEUMONIA Time Seen by Provider: 02/18/23 12:21 Source: patient Mode of arrival: ambulatory History of Present Illness: HPI Narrative: 57-year-old male presents emergency room complaining shortness of breath and cough. Cough minimally productive. He has chronic pitting edema he denies any chest pain. He has had some right upper quadrant abdominal pain in the last couple of days. Generally has felt poorly with myalgias and fever the last several days. He has no known history of coronary disease no history of CHF he is a regular smoker although he states it felt so poor the last few days has not been smoking as much. MD elicited complaint: shortness of breath and cough Onset (ago): day(s) (4) Exacerbating factors: nothing, exertion, movement and coughing Relieving factors: rest Associated symptoms: Reports cough and fever(s); Deny abdominal pain, chest congestion, chest pain, diaphoresis, dizziness, extremity pain, hemoptysis, lightheadedness, myalgias, nausea, orthopnea, palpitations, paresthesias, polydipsia, polyuria, rash, sense of impending doom, syncope or vomiting Treatment prior to arrival: oxygen Review of Systems Const: Reports: fever(s), chills, fatigue and malaise; Denies: diaphoresis ENMT: Denies: throat pain, ear or mastoid pain, nasal discharge or nasal congestion Card: Reports: dyspnea on exertion; Denies: chest pain, palpitations, lightheadedness, syncope or orthopnea Resp: Reports: dyspnea, productive cough and wheezing; Denies: hemoptysis or chest congestion GI: Denies: abdominal pain, nausea or vomiting : Denies: flank pain, dysuria, urinary frequency or urinary urgency Musc: Denies: extremity pain Skin/Breast: Denies: rash or pruritus Neuro: Denies: dizziness Endo: Denies: polyuria or polydipsia PFSH ED PFSH: Medical History Acute dyspnea Acute metabolic encephalopathy Alcoholism Ascites COPD (chronic obstructive pulmonary disease) COPD exacerbation Cough Diarrhea Fever Generalized weakness Hyperkalemia Hyponatremia Hypothyroid Hypoxia Influenzal pneumonia Liver cirrhosis Lumbar radiculopathy, chronic Respiratory failure with hypoxia and hypercapnia Shortness of breath Surgical History S/P laminectomy with spinal fusion Family History Father CAD (coronary artery disease) Social History Smoking and tobacco status: current every day smoker Alcohol intake: current Alcohol intake frequency: 3 or more drinks per day Substance/Drug Use: current Physical Exam Const: GENERAL APPEARANCE: cooperative and comfortable ORIENTATION/CONSCIOUSNESS: Yes awake, Yes oriented to person, Yes oriented to place and Yes oriented to time HENMT: COMMON NORMALS: normocephalic, atraumatic and hearing grossly normal bilaterally HEAD & SCALP: normocephalic and atraumatic Resp: AUSCULTATION: rhonchi and wheezes Cardio: COMMON NORMALS: regular rate, regular rhythm and No murmurs present (Cardio) RATE: regular rate RHYTHM: regular rhythm GI: COMMON NORMALS: Soft to palpation and No hepatosplenomegaly present AUSCULTATION: Yes normoactive bowel sounds PALPATION: Yes Soft to palpation, No Tenderness to palpation present (GI), No Guarding due to palpation present (GI) and Yes No hepatosplenomegaly present Extremity: COMMON NORMALS: normal to inspection, capillary refill normal, no clubbing, cyanosis or edema, no calf tenderness and no pedal edema Neuro: SENSORIUM/ORIENTATION: Yes oriented to person, Yes oriented to place and Yes oriented to time Skin: COMMON NORMALS: no rashes or lesions noted GENERAL SKIN EXAM: no rashes or lesions noted Course Vital Signs: Vital signs: Vital Signs Temperature 101.5 F H 02/18/23 12:25 Pulse Rate 96 02/18/23 13:40 Respiratory Rate 22 H 02/18/23 12:51 Blood Pressure 141/68 02/18/23 13:40 Pulse Oximetry 90 02/18/23 13:40 Oxygen Delivery Me thod Room Air 02/18/23 12:51 MDM - SOB/Dyspnea Medical Decision Making Severe anemia patient denies any obvious blood loss hematochezia melena hematemesis calcaneus hematuria. He also has a pancreatitis. Chest x-ray was clear discussed with hospitalist will admit cultures done started on prophylactic Levaquin until cultures resulted. In addition he is hyponatremic. Lab Data 02/18/23 12:30 02/18/23 12:30 Labs/Radiology: Radiology Impressions Chest X-Ray 02/18/23 12:21 IMPRESSION: No acute cardiopulmonary abnormality. Abdomen/Pelvis CT 02/18/23 14:18 IMPRESSION: 1. Mild inflammation surrounding the pancreatic head. Suspect pancreatitis. There is additional mesenteric edema and engorgement of the vasculature. 2. Small Central mesenteric lymph nodes and edema. May be related to the pancreatitis. 3. Contracted gallbladder with stones. 4. Cirrhotic liver. 5. No free fluid. 6. Diffuse abdominal wall soft tissue thickening. Consider cellulitis. Laboratory Results WBC 4.1 10^3/uL (4.0-10.0) 02/18/23 12:30 RBC 2.66 10^6/uL (4.1-5.3) L 02/18/23 12:30 Hgb 5.9 g/dL (11.7-16.6) L* 02/18/23 12:30 Hct 20.5 % (42.0-52.0) L* 02/18/23 12:30 MCV 77.1 fl (80-94) L 02/18/23 12:30 MCH 22.2 pg (28.0-34.0) L 02/18/23 12:30 MCHC 28.8 g/dL (30.0-36.0) L 02/18/23 12:30 RDW 18.6 % (12.1-15.1) H 02/18/23 12:30 Plt Count 97 10^3/cmm (130-400) L 02/18/23 12:30 MPV 8.9 fL (7.4-10.4) 02/18/23 12:30 Neut % (Auto) 63.3 % 02/18/23 12:30 Lymph % (Auto) 20.0 % 02/18/23 12:30 [place] % (Auto) 14.3 % 02/18/23 12:30 Eos % (Auto) 0.2 % 02/18/23 12:30 Baso % (Auto) 1.2 % 02/18/23 12:30 Neut # (Auto) 2.56 10^3/uL (1.8-7.7) 02/18/23 12:30 Lymph # (Auto) 0.8 10^3/uL (0.8-4.8) 02/18/23 12:30 [place] # (Auto) 0.6 10^3/uL (0.2-0.9) 02/18/23 12:30 Eos # (Auto) 0.0 10^3/uL (0.0-0.8) 02/18/23 12:30 Baso # (Auto) 0.1 10^3/uL (0.0-0.1) 02/18/23 12:30 Nucleated RBC % (auto) 0.5 % 02/18/23 12:30 Nucleated RBCs # 0.0 /100WBC 02/18/23 12:30 Sodium 121 mmol/L (136-145) L 02/18/23 12:30 Potassium 3.7 mmol/L (3.5-5.1) 02/18/23 12:30 Chloride 90 mmol/L (98-107) L 02/18/23 12:30 Carbon Dioxide 22 mmol/L (22-29) 02/18/23 12:30 Anion Gap 12.7 (5-19) 02/18/23 12:30 BUN 8 mg/dL (6-20) 02/18/23 12:30 Creatinine 0.7 mg/dL (0.7-1.2) 02/18/23 12:30 GFR Calculation 116.7 mL/min (90-130) 02/18/23 12:30 Glucose 111 mg/dL (65-115) 02/18/23 12:30 Calculated Osmolality 251 mOsm/kg (285-295) L 02/18/23 12:30 Lactic Acid 1.9 mmol/L (0.5-2.2) 02/18/23 13:10 Calcium 8.0 mg/dL (8.5-10.5) L 02/18/23 12:30 Total Bilirubin 2.3 mg/dL (0.15-1.2) H 02/18/23 12:30 AST 96 U/L (0-40) H 02/18/23 12:30 ALT 25 U/L (0-41) 02/18/23 12:30 Alkaline Phosphatase 81 U/L (40-130) 02/18/23 12:30 NT-Pro-B Natriuret Pep 324 pg/mL (0-125) H 02/18/23 12:30 Total Protein 7.8 g/dL (6.6-8.7) 02/18/23 12:30 Albumin 2.8 g/dL (3.5-5.2) L 02/18/23 12:30 Globulin 5.0 g/dL (1.3-4.6) H 02/18/23 12:30 Lipase 123 U/L (13-60) H 02/18/23 12:30 Coronavirus 229E (PCR) Not detected (NOT DETECT) 02/18/23 13:15 Influenza Type A Ag negative (Negative) 02/18/23 13:15 Influenza Type B Ag negative (Negative) 02/18/23 13:15 SARS-CoV-2 (PCR) Not detected (NOT DETECT) 02/18/23 13:15 Blood Type O Negative 02/18/23 14:00 Rho(D) Type Negative 02/18/23 14:00 Antibody Screen Negative 02/18/23 14:00 Crossmatch See Detail 02/18/23 14:00 Discharge Plan Discharge Patient Disposition: Admitted As Inpatient Clinical Impression: Anemia, Acute pancreatitis, COPD (chronic obstructive pulmonary disease), Hyponatremia Condition: Stable Prescriptions: No Action levothyroxine [Euthyrox] 50 mcg tablet 50 mcg PO QAM spironolactone 25 mg tablet 25 mg PO DAILY furosemide 40 mg tablet 40 mg PO DAILY pantoprazole 40 mg tablet,delayed release (DR/EC) 40 mg PO BID lidocaine 5 % adhesive patch,medicated See Rx Instructions .ROUTE .COMPLEX Rx Instructions: 1 patch transdermally ON FOR 12H OFF FOR 12 HR Klor-Con 10 10 mEq tablet extended release 10 meq PO TID Referrals: Elizabeth Gagnon MD [Primary Care Provider] - Patient Instructions: Opioid Safety, Pain Management Coding Level of Care Code ED Diagrammer And Seamer for Carlos Enrique Merritt
[2023-02-18] MEDS: sodium chloride 0.9% 1,000 ML 999 ML IV (12:39)
[2023-02-18 12:47] LABS: Basophils # 0.1 10^3/uL (0.0-0.1); Basophils % 1.2 %; Eosinophils % 0.2 %; Lymphocytes # 0.8 10^3/uL (0.8-4.8); Mean Corpuscular HGB Conc 28.8 g/dL (30.0-36.0); Mean Corpuscular Hemoglobin 22.2 pg (28.0-34.0); Mean Corpuscular Volume 77.1 fl (80-94); Mean Platelet Volume 8.9 fL (7.4-10.4); Monocytes # 0.6 10^3/uL (0.2-0.9); Monocytes % 14.3 %; Neutrophils # 2.56 10^3/uL (1.8-7.7); Neutrophils % 63.3 %; Nucleated Red Blood Cells % 0.5 %; Platelet Count 97 10^3/cmm (130-400); Red Blood Count 2.66 10^6/uL (4.1-5.3); Red Cell Distribution Width 18.6 % (12.1-15.1); White Blood Count 4.1 10^3/uL (4.0-10.0)
[2023-02-18] MEDS: ipratropium-albuterol 3 mL Neb INHALATION (12:50)
[2023-02-18 13:13] LABS: Alanine Aminotransferase 25 U/L (0-41); Albumin Level 2.8 g/dL (3.5-5.2); Alkaline Phosphatase 81 U/L (40-130); Anion Gap 12.7 (5-19); Aspartate Amino Transferase 96 U/L (0-40); Blood Urea Nitrogen 8 mg/dL (6-20); Carbon Dioxide 22 mmol/L (22-29); Chloride 90 mmol/L (98-107); Glomerular Filtration Rate 116.7 mL/min (90-130); Glucose 111 mg/dL (65-115); NT Pro B Type Natriuretic Pept 324 pg/mL (0-125); Osmolality Calculated 251 mOsm/kg (285-295); Potassium 3.7 mmol/L (3.5-5.1); Sodium 121 mmol/L (136-145); Total Bilirubin 2.3 mg/dL (0.15-1.2); Total Protein 7.8 g/dL (6.6-8.7)
[2023-02-18 13:21] LABS: Lipase 123 U/L (13-60)
[2023-02-18 13:28] LABS: Slide Review Slide Review Perform
[2023-02-18 13:29] LABS: Hematocrit 20.5 % (42.0-52.0); Hemoglobin 5.9 g/dL (11.7-16.6)
[2023-02-18 13:44] LABS: Lactic Sepsis W/Reflex 1.9 mmol/L (0.5-2.2)
[2023-02-18 13:48] LABS: Influenza A by IFA negative (Negative); Influenza B by IFA negative (Negative)
--- NOTE | 2023-02-18 14:18 | CT_ITS ---
WS: [id number] CT ABDOMEN AND PELVIS NONCONTRAST HISTORY: Abdominal pain TECHNIQUE: Imaging performed through the abdomen and pelvis. Coronal and sagittal reformats are submi tted. All CT scans at [facility] use at least one of these dose optimization techniques: auto mated exposure control; mA and/or kV adjustment per patient size (includes targeted exams where dose is matched to clinical indication); or iterative reconstruction. DLP: 1755.03 mGy.cm COMPARISON: 05/08/2022 Lower thorax: Breathing motion artifact. Small paraesophageal lymph nodes. Liver: Enlarged. Surface of the liver is slightly nodular suggesting cirrhosis. No bile duct dilatati on. Gallbladder: Gallbladder is contracted with stones. There is mild wall thickening which may be due to hepatocellular disease. Improved as compared to 05/08/2022. Pancreas: Mild inflammation surrounding the pancreatic head and within the mesenteric fat. Body and t ail of the pancreas are normal. Spleen: Normal. Adrenal glands: Normal. No mass. Right kidney: Normal size kidney with no mass or hydronephrosis. Left kidney: Normal size kidney with no mass or hydronephrosis. Aorta: Mild atherosclerosis abdominal aorta with no aneurysm. No free fluid, intraperitoneal air or significant lymphadenopathy. Mild diffuse mesenteric edema and a small a few small lymph nodes. Numerous varicosities present within the abdomen. GI tract: Normal noncontrast imaging of the stomach, small bowel and colon. No obstruction or wall th ickening. Normal appendix. Abdominal wall: Abdominal wall thickening. Induration of soft tissue within the subcutaneous fat surr ounding the umbilicus and inferiorly. No air or focal collection. No hernia. Pelvis: Negative urinary bladder. Osseous structures: Unremarkable. CT/CT abdomen pelvis wo con [id number] IMPRESSION: 1. Mild inflammation surrounding the pancreatic head. Suspect pancreatitis. Th ere is additional mesenteric edema and engorgement of the vasculature. 2. Small Central mesenteric lymph nodes and edema. May be related to the pancr eatitis. 3. Contracted gallbladder with stones. 4. Cirrhotic liver. 5. No free fluid. 6. Diffuse abdominal wall soft tissue thickening. Consider cellulitis.
[2023-02-18] MEDS: pantoprazole DR 40 mg Tablet PO (14:24)
--- NOTE | 2023-02-18 15:06 | PM.HP ---
Providers/Chief Complaint Primary Care Provider: Elizabeth Gagnon MD Chief Complaint: POSSIBLE PNEUMONIA History of Present Illness Eliezer Reynolds is a 57 year old male with a past medical history of chronic back pain, status post laminectomy, hypothyroidism, history of COPD, current smoker, history of marijuana use, history of alcoholism presents to the hospital with chief complaint of shortness of breath. Patient has not noticed any fever at home, he is stating that for last 3 to 4 days he has been experiencing multiple episodes of diarrhea he is experiencing epigastric pain as well no emesis he does not use oxygen or CPAP at home. He does not endorse drinking alcohol recently. He is being evaluated by a expanded function dental assistant at [place] Patient is denying hemoptysis hematemesis hematochezia, melanotic stools, he does not take lactulose on daily basis, lives with his grandson In the ER he was diagnosed with pancreatitis, he is spiking fever likely source of pancreatitis versus abdominal wall cellulitis He has been started on antibiotics No signs of sepsis PRAMOD Severe anemia asymptomatic he has been given 2 units of blood Review of Systems Const: Denies: fever(s) Eyes: Denies: change in vision ENMT: Denies: throat pain Card: Denies: chest pain Resp: Reports: dyspnea GI: Reports: abdominal pain and nausea : Denies: flank pain Musc: Denies: neck pain Skin/Breast: Denies: rash Psych: Reports: anxiety Endo: Denies: polyuria Juan/Lymph: Denies: easy bruising Medications/Allergies Home Medications Medication Instructions Recorded Confirmed Last Taken Type levothyroxine 50 mcg tablet 50 mcg PO QAM 11/18/21 02/18/23 05/08/22 History (Euthyrox) spironolactone 25 mg tablet 25 mg PO DAILY 05/08/22 02/18/23 05/08/22 History furosemide 40 mg tablet 40 mg PO DAILY 02/18/23 02/18/23 Unknown History lidocaine 5 % topical patch See Rx Instructions .Route .COMPLEX 02/18/23 02/18/23 02/18/23 History pantoprazole 40 mg tablet,delayed 40 mg PO BID 02/18/23 02/18/23 Unknown History release potassium chloride 10 mEq 10 meq PO TID 02/18/23 02/18/23 Unknown History tablet,extended release (Klor-Con) Allergies Allergy/AdvReac Type Severity Reaction Status Date / Time Penicillins Allergy Unknown Verified 11/18/21 09:01 PFSH Acute PFSH: Medical History Acute dyspnea Acute metabolic encephalopathy Alcoholism Ascites COPD (chronic obstructive pulmonary disease) COPD exacerbation Cough Diarrhea Fever Generalized weakness Hyperkalemia Hyponatremia Hypothyroid Hypoxia Influenzal pneumonia Liver cirrhosis Lumbar radiculopathy, chronic Respiratory failure with hypoxia and hypercapnia Shortness of breath Surgical History S/P laminectomy with spinal fusion Family History Father CAD (coronary artery disease) Social History Smoking and tobacco status: current every day smoker Alcohol intake: current Alcohol intake frequency: 3 or more drinks per day Substance/Drug Use: current Vitals/I&O/Wt Last Vital Signs Temp 101.5 F H 02/18/23 12:25 Pulse 96 02/18/23 13:40 Resp 22 H 02/18/23 12:51 BP 141/68 02/18/23 13:40 Pulse Ox 90 02/18/23 13:40 O2 Del Method Room Air 02/18/23 12:51 02/18/23 02/18/23 02/18/23 06:59 14:59 22:59 Intake Total 1000 / 1000 Balance 1000 / 1000 Weight last 48 hrs Weight 99.79 kg Physical Exam Narrative: Asterixis positive Awake and alert Abdomen distended tender epigastric area No signs of confusion Awake and alert able to give history Able to follow commands S1, S2 Currently on BiPAP Pleasant and cooperative Appears more than stated age Data 02/18/23 12:30 02/18/23 12:30 Micro: Microbiology 02/18/23 13:10 Blood Culture - Preliminary Blood SPECIMEN COLLECTED 02/18/23 13:01 Blood Culture - Preliminary Blood SPECIMEN COLLECTED A&P Assessment and plan (1) Anemia: (2) Acute pancreatitis: (3) COPD (chronic obstructive pulmonary disease): (4) Hyponatremia: Plan Acute on chronic anemia Iron deficiency anemia History of liver cirrhosis No active bleeding Hemodynamically stable We will give him 2 units PRBC Avoid NG tube placementTo avoid irritation of variceal No active bleeding I will keep him on clear liquid diet I will keep him on Lasix Continue lactulose Hypervolemic hyponatremia Monitor sodium overnight Continue diuretics Hypothyroid: Continue levothyroxine Thrombocytopenia is chronic related to alcohol-related liver cirrhosis and hypersplenism Pancreatitis Epigastric pain Febrile Monitor for signs of necrotic pancreas No leukocytosis, lactic acid normal He is not septic Abdominal wall edema I will put him on cefepime and vancomycin for now In case of worsening of febrile episodes my threshold still low to get a CT with contrast to rule out necrotic pancreatic scenario which would require CT-guided drainage at a tertiary center COVID-negative Na MELD score:- Full code Avoid DVT prophylaxis with anticoagulating agent would use SCDs for now Patient lives with his grandson Alcohol-related liver cirrhosis I will put him on BiPAP overnight I do believe he has hypoventilation related to distended abdomen Attestations Medical Necessity Statement*: Anticipating more than 2 midnights for pancreatitis, anemia, Diagnoses Anemia D64.9 Acute pancreatitis K85.90 COPD (chronic obstructive pulmonary disease) J44.9 Hyponatremia E87.1
[2023-02-18 15:11] LABS: Adenovirus Not Detected (NOT DETECT); Chlamydia Pneumoniae Not Detected (NOT DETECT); Coronavirus 229E,HKU1,NL63,OC4 Not Detected (NOT DETECT); Human Metapneumovirus Not Detected (NOT DETECT); Human Rhinovirus/Enterovirus Not Detected (NOT DETECT); Influenza A Not Detected (NOT DETECT); Influenza A H1 Not Detected (NOT DETECT); Influenza A H1-2009 Not Detected (NOT DETECT); Influenza A H3 Not Detected (NOT DETECT); Influenza B Not Detected (NOT DETECT); Mycoplasma Pneumoniae Not Detected (NOT DETECT); Parainfluenza Virus Type 1 Not Detected (NOT DETECT); Parainfluenza Virus Type 2 Not Detected (NOT DETECT); Parainfluenza Virus Type 3 Not Detected (NOT DETECT); Parainfluenza Virus Type 4 Not Detected (NOT DETECT); Respiratory Syncytial Virus A Not Detected (NOT DETECT); Respiratory Syncytial Virus B Not Detected (NOT DETECT); SARS-COV-2 Not Detected (NOT DETECT)
[2023-02-18 15:53] LABS: Ferritin 299 ng/mL (30-400); Iron 35 ug/dL (59-158); Percent Saturation 10.4 % (20-50); Procalcitonin 0.24 ng/mL (0-0.5); Total Iron Binding Capacity 336 mcg/dl; Unsaturated Iron Binding 301 ug/dL (112-347)
--- NOTE | 2023-02-18 16:38 | PC.NURSE ---
physician notified of vital changes after blood transfusion. PT has had intermittent fevers. will Continue blood transfusion and monitoring at this time. PT denies any new symptoms and is in NAD
[2023-02-18] MEDS: acetaminophen 325 mg Tablet 650 MG PO (16:51)
--- NOTE | 2023-02-18 17:46 | PC.PHAR ---
Vanc trough to be drawn before 4th dose assuming stable renal function and normal dosing intervals Patient: Floor: Age: 57 yo Serum creatinine: 0.7 mg/dL Height: 66.9 Inches Weight (kg): 99 IBW (kg): 65.87 Dosing wt(kg): 79.1 Estimated Creatinine clearance (ml/min): 109.8 CRCL method: Cockcroft and Gault using ibw(default). Drug selected: Vancomycin Loading dose (mg): Vd (liters): 55.4 (factor used: 0.7 L/kg) Ryan (hr-1): 0.096 Half life (hrs): 7.22 CLvanco=?? 5.318 L/hr Recommended dose: 1500 mg Interval: 12 hrs Infusion time (hrs): 1 Predicted peak (mcg/mL): 37.7 Predicted trough (mcg/mL): 13.11 Adjusted body weight was selected for vancomycin dosing. To switch back, select the total body weight option above. Recommendations: Give Vancomycin 1500 mg q 12 hrs with an expected Cpeak of 37.7 mcg/ml and an expected Ctrough of 13.11 mcg/ml AUC 0-24 /SWATHI Data: SWATHI 0.5 mcg/mL:?? AUC/SWATHI:? 1128.2 SWATHI 1.0 mcg/mL:?? AUC/SWATHI:? 564.1 --------- SWATHI 1.5 mcg/mL:?? AUC/SWATHI:? 376.1 SWATHI 2.0 mcg/mL:?? AUC/SWATHI:? 282.1 Renal dosing of other antibiotics (review renal dosing of other medications and list guidelines here): Thank you for the consult, will continue to follow. Signature: Kishore Ogden, Pharm.D.
[2023-02-18] MEDS: lactulose oral liq 20 gm/30 mL UDC PO (19:44)
[2023-02-18] MEDS: vancomycin 1,500 MG/300 ML PIGGYBACK 200 MG IV (19:51)
[2023-02-18 20:31] LABS: INR 1.72 (0.8-1.2)
[2023-02-18] MEDS: cefepime 2,000 MG in sodium chloride 0.9% (plus) 50 ML 100 MG IV (21:54)
[2023-02-18] MEDS: pantoprazole 40 mg SDV IVP (21:59)
[2023-02-19] VITALS (13 sets, daily range): BP systolic 116–167; BP diastolic 56–90; PULSE 66–101; RESP 15–24; TEMP 36.4–37.3; O2SAT 82–100
[2023-02-19] MEDS: lactulose oral liq 20 gm/30 mL UDC PO ×2 (03:59→10:51)
[2023-02-19 04:15] LABS: Basophils # 0.1 10^3/uL (0.0-0.1); Basophils % 1.3 %; Eosinophils % 0.2 %; Hematocrit 27.6 % (42.0-52.0); Hemoglobin 8.5 g/dL (11.7-16.6); Lymphocytes # 0.9 10^3/uL (0.8-4.8); Lymphocytes % 18.6 %; Mean Corpuscular HGB Conc 30.8 g/dL (30.0-36.0); Mean Corpuscular Hemoglobin 24.4 pg (28.0-34.0); Mean Corpuscular Volume 79.3 fl (80-94); Mean Platelet Volume 9.4 fL (7.4-10.4); Monocytes # 0.8 10^3/uL (0.2-0.9); Monocytes % 16.7 %; Neutrophils # 2.82 10^3/uL (1.8-7.7); Neutrophils % 61.9 %; Nucleated Red Blood Cells % 0 %; Platelet Count 90 10^3/cmm (130-400); Red Blood Count 3.48 10^6/uL (4.1-5.3); Red Cell Distribution Width 18.5 % (12.1-15.1); White Blood Count 4.6 10^3/uL (4.0-10.0)
[2023-02-19 04:34] LABS: Anion Gap 12.6 (5-19); Blood Urea Nitrogen 8 mg/dL (6-20); C Reactive Protein 14.1 mg/L (0.0-4.9); Calcium 7.7 mg/dL (8.5-10.5); Carbon Dioxide 23 mmol/L (22-29); Chloride 92 mmol/L (98-107); Glomerular Filtration Rate 139.4 mL/min (90-130); Glucose 117 mg/dL (65-115); Magnesium 1.4 mg/dL (1.7-2.3); Osmolality Calculated 257 mOsm/kg (285-295); Potassium 3.6 mmol/L (3.5-5.1); Sodium 124 mmol/L (136-145)
[2023-02-19] MEDS: cefepime 2,000 MG in sodium chloride 0.9% (plus) 50 ML 100 MG IV ×2 (05:53→17:04)
[2023-02-19] MEDS: levothyroxine 50 mcg Tablet PO (05:53)
[2023-02-19] MEDS: vancomycin 1,500 MG/300 ML PIGGYBACK 200 MG IV ×2 (06:42→17:44)
[2023-02-19] MEDS: pantoprazole 40 mg SDV IVP ×2 (10:50→17:03)
[2023-02-19] MEDS: FUROsemide 40 mg Tablet PO (10:50)
[2023-02-19] MEDS: potassium chloride ER 10 mEq Tablet PO (10:50)
[2023-02-19] MEDS: nystatin powder 15 gm Btl 1 APPLIC TOPICAL ×2 (11:00→17:04)
--- NOTE | 2023-02-19 11:41 | PM.PN ---
Subjective Subjective: Morning hemoglobin is 8.5 Hemodynamically stable Patient was having a bowel movement this morning Currently on 2 L No overnight events Vitals/I&O/Wt Last Vital Signs Temp 98.1 F 02/19/23 08:00 Pulse 66 02/19/23 08:36 Resp 16 02/19/23 08:36 BP 126/61 02/19/23 08:00 Pulse Ox 98 02/19/23 08:36 O2 Del Method Nasal Cannula 02/19/23 08:36 O2 Flow Rate 2 02/19/23 08:36 FiO2 32 02/18/23 17:45 02/18/23 02/19/23 02/19/23 22:59 06:59 14:59 Intake Total 300 / 1300 800 / 2100 Output Total 1200 / 1200 Balance 300 / 1300 -400 / 900 Weight last 48 hrs Weight 99.79 kg Physical Exam Narrative: Patient sitting on a bedside commode Awake and alert No signs of neurological decompensation Nonfocal neuro exam GCS 15 Currently on 2 L Abdomen distended mild tenderness epigastric region Euvolemic Pleasant and cooperative Data 02/19/23 03:32 02/19/23 03:32 Micro: Microbiology 02/18/23 21:23 C.difficile Toxin B Gene (PCR) - Final Stool 02/18/23 13:10 Blood Culture - Preliminary Blood SPECIMEN COLLECTED 02/18/23 13:01 Blood Culture - Preliminary Blood SPECIMEN COLLECTED A&P Assessment and plan (1) Anemia: (2) Acute pancreatitis: (3) COPD (chronic obstructive pulmonary disease): (4) Hyponatremia: Plan Acute on chronic anemia Iron deficiency No active signs of bleeding Occult blood test is pending Status post 2 unit PRBC Hemoglobin 8.5 Hemodynamically stable No acute indication for EGD or colonoscopy at this point Pancreatitis: Febrile episodes resolved No signs of necrotic pancreas Afebrile since yesterday Continue antibiotics for abdominal wall cellulitis Low threshold to repeat CT scan to rule out necrotic pancreas Chronic thrombocytopenia related to alcohol abuse and portal hypertension Hypervolemic hyponatremia Resume diuretics Hypomagnesemia: Repleted Plan to discharge tomorrow versus later today if tolerating diet Attestations Medical Necessity Statement*: Plan to discharge later today versus tomorrow Diagnoses Anemia D64.9 Acute pancreatitis K85.90 COPD (chronic obstructive pulmonary disease) J44.9 Hyponatremia E87.1
[2023-02-19] MEDS: iron sucrose 200 MG in sodium chloride 0.9% (100 ml) 100 ML 220 MG IV (11:54)
[2023-02-19] MEDS: magnesium oxide 400 mg tablet PO (17:04)
[2023-02-19 20:49] LABS: Protein Urine Trace (Negative); Urine Appearance SL Hazy (CLEAR); Urine Color Amber (Yellow); pH Urine 5 (5-7)
[2023-02-19 20:50] LABS: Add Urine Microscopic? YES; Bilirubin Urine Neg (Negative); Blood Urine 2+ (Negative); Glucose Urine UA Norm (Normal); Ketones Urine 1+ (Negative); Leukocyte Esterase Urine Negative (Negative); Nitrate Urine Negative (Negative); Squamous Epithelial Cell Urine 0-4 /hpf (0-5); Urobilinogen Urine Norm (Negative); WBC Urine 0-4 /hpf (0-5)
[2023-02-19 20:51] LABS: Amorphous Sediment Urine 2+ /hpf; Fine Granular Casts Urine 0-4 /lpf; Hyaline Casts Urine 0-4 /lpf; Mucus Urine 2+ /hpf
[2023-02-19 20:52] LABS: Add Urine Culture? No
[2023-02-20] VITALS: BP 133/67; PULSE 85; RESP 17; TEMP 36.9; O2SAT 95
[2023-02-20] MEDS: zolpidem 5 mg Tablet PO (01:43)
[2023-02-20] MEDS: lactulose oral liq 20 gm/30 mL UDC PO ×2 (01:44→10:30)
[2023-02-20 03:43] VITALS: BP 125/70; PULSE 80; RESP 22; TEMP 36.8; O2SAT 93
[2023-02-20] MEDS: cefepime 2,000 MG in sodium chloride 0.9% (plus) 50 ML 100 MG IV (05:40)
[2023-02-20] MEDS: levothyroxine 50 mcg Tablet PO (05:40)
[2023-02-20 05:45] LABS: Hematocrit 27.5 % (42.0-52.0); Hemoglobin 8.3 g/dL (11.7-16.6); Mean Corpuscular HGB Conc 30.2 g/dL (30.0-36.0); Mean Corpuscular Hemoglobin 24.3 pg (28.0-34.0); Mean Corpuscular Volume 80.6 fl (80-94); Mean Platelet Volume 9.5 fL (7.4-10.4); Platelet Count 90 10^3/cmm (130-400); Red Blood Count 3.41 10^6/uL (4.1-5.3)
[2023-02-20 06:18] LABS: Alanine Aminotransferase 29 U/L (0-41); Albumin Level 2.6 g/dL (3.5-5.2); Alkaline Phosphatase 99 U/L (40-130); Anion Gap 10.8 (5-19); Aspartate Amino Transferase 89 U/L (0-40); Blood Urea Nitrogen 9 mg/dL (6-20); Carbon Dioxide 27 mmol/L (22-29); Chloride 96 mmol/L (98-107); Globulin 4.9 g/dL (1.3-4.6); Glomerular Filtration Rate 116.7 mL/min (90-130); Glucose 135 mg/dL (65-115); Osmolality Calculated 271 mOsm/kg (285-295); Potassium 3.8 mmol/L (3.5-5.1); Sodium 130 mmol/L (136-145); Total Bilirubin 2.4 mg/dL (0.15-1.2); Total Protein 7.5 g/dL (6.6-8.7); Vancomycin Trough 10.9 ug/mL (10-15)
[2023-02-20 06:19] LABS: Lipase 205 U/L (13-60); Magnesium 1.6 mg/dL (1.7-2.3)
[2023-02-20 06:37] LABS: Absolute Eosinophils 0.1 10^3/cmm (0.0-0.7); Eosinophils 2 %; Lymphocytes 38 %; Lymphocytes Absolute 1.9 10^3/cmm (1.2-3.4); Platelet Estimate Decreased (Normal); Segmented Neutrophils 40 %; Total Cells Counted 100 (0-100)
[2023-02-20 06:39] LABS: Anisocytosis 2+; Hypochromasia 1+; Smudge Cells 1+
[2023-02-20 06:40] LABS: Pathology Refferal Yes
[2023-02-20] MEDS: vancomycin 1,500 MG/300 ML PIGGYBACK 200 MG IV (07:10)
[2023-02-20 07:16] VITALS: PULSE 78; RESP 16; O2SAT 95
[2023-02-20] MEDS: magnesium oxide 400 mg tablet PO (08:12)
[2023-02-20] MEDS: potassium chloride ER 10 mEq Tablet PO (08:12)
[2023-02-20] MEDS: FUROsemide 40 mg Tablet PO (08:12)
[2023-02-20] MEDS: pantoprazole 40 mg SDV IVP (09:33)
[2023-02-20 11:54] VITALS: BP 133/76; PULSE 88; RESP 19; O2SAT 93
--- NOTE | 2023-02-22 10:10 | PC.SOCIAL ---
F/u Call Patient reports that he obtained all of his medications, as well as his oxygen that was set up for him. He states that he is doing fine and no complaints at this time. Attempted to schedule f/u appt with Dr. Gagnon, office will not schedule until discharge available.
--- NOTE | 2023-02-23 16:24 | P.DS_ITS ---
Discharge Providers Date of Admission: 02/18/23 14:38 Date of Discharge: 02/20/2023 Attending Provider at Admission: Lex Victoria MD Attending Provider at Discharge: Giorgio Alarcon MD Consults: None Primary Care Provider: Elizabeth Gagnon MD Diagnoses at Discharge Discharge Diagnosis (1) Anemia: Status: Acute (2) Acute pancreatitis: Status: Resolved (3) COPD (chronic obstructive pulmonary disease): Status: Acute (4) Hyponatremia: Status: Acute Reason for Visit Reason for Visit: POSSIBLE PNEUMONIA Hospital Course Hospital Course Eliezer Reynolds is a 57-year-old male with a past medical history significant for chronic back pain, status post laminectomy, hypothyroidism, history of COPD, current smoker, history of marijuana use, history of alcoholism presents to the hospital with shortness of breath, found to have fevers, acute on chronic anemia, thrombocytopenia, hypervolemic hyponatremia, abdominal wall cellulitis, and acute pancreatitis. He was treated with transfusion of 2 pRBCs, IV abx, and supportive care. Hemoglobin responded appropriately. There was no sign or symptom to suggestive active bleeding. Sodium level improved. Fevers and abdominal wall cellulitis resolved. Unclear if fevers were from infection or pancreatitis. Etiology of pancreatitis remained unclear. Abdominal symptoms resolved. Patient denied recent alcohol use but he does have a known history of prior alcoholism. He is following with a coffee shop manager in the [place] area. Patient was rotated to broad spectrum oral antibiotic (levofloxacin) and iron supplementation as per discharge medication reconciliation. Physical Exam Narrative: General: Patient is awake. Head:? Normocephalic. Atraumatic. Neck: No JVD. Lungs: No respiratory distress. Skin: No jaundice. Abdomen: Not distended.? Extremities: No cyanosis or clubbing. Musculoskeletal: Normal muscular development. Neurological:? No myoclonus.? Discharge Data Studies Completed and Pending Completed Studies During Hospitalization Category Date Time Status CT abdomen pelvis wo con [id number] Stat Cat Scan 02/18/23 14:18 Completed XR chest 1V portable [id number] Stat Exams 02/18/23 12:21 Completed Radiology Impressions Chest X-Ray 02/18/23 12:21 IMPRESSION: No acute cardiopulmonary abnormality. Abdomen/Pelvis CT 02/18/23 14:18 IMPRESSION: 1. Mild inflammation surrounding the pancreatic head. Suspect pancreatitis. There is additional mesenteric edema and engorgement of the vasculature. 2. Small Central mesenteric lymph nodes and edema. May be related to the pancreatitis. 3. Contracted gallbladder with stones. 4. Cirrhotic liver. 5. No free fluid. 6. Diffuse abdominal wall soft tissue thickening. Consider cellulitis. Laboratory Results WBC 5.0 10^3/uL (4.0-10.0) 02/20/23 04:35 RBC 3.41 10^6/uL (4.1-5.3) L 02/20/23 04:35 Hgb 8.3 g/dL (11.7-16.6) L 02/20/23 04:35 Hct 27.5 % (42.0-52.0) L 02/20/23 04:35 MCV 80.6 fl (80-94) 02/20/23 04:35 MCH 24.3 pg (28.0-34.0) L 02/20/23 04:35 MCHC 30.2 g/dL (30.0-36.0) 02/20/23 04:35 RDW 19.0 % (12.1-15.1) H 02/20/23 04:35 Plt Count 90 10^3/cmm (130-400) L 02/20/23 04:35 MPV 9.5 fL (7.4-10.4) 02/20/23 04:35 Neut % (Auto) 61.9 % 02/19/23 03:32 Lymph % (Auto) Not Reportable 02/20/23 04:35 [place] % (Auto) Not Reportable 02/20/23 04:35 Eos % (Auto) 0.2 % 02/19/23 03:32 Baso % (Auto) 1.3 % 02/19/23 03:32 Neut # (Auto) 2.82 10^3/uL (1.8-7.7) 02/19/23 03:32 Lymph # (Auto) Not Reportable 02/20/23 04:35 [place] # (Auto) Not Reportable 02/20/23 04:35 Eos # (Auto) 0.0 10^3/uL (0.0-0.8) 02/19/23 03:32 Baso # (Auto) 0.1 10^3/uL (0.0-0.1) 02/19/23 03:32 Nucleated RBC % (auto) 0 % 02/19/23 03:32 Total Counted 100 (0-100) 02/20/23 04:35 Atypical Lymphs % 0.0 % (0-5) 02/20/23 04:35 Absolute Neutrophils 2.0 10^3/cmm (1.4-6.5) 02/20/23 04:35 Segmented Neutrophils 40 % 02/20/23 04:35 Abs Segm Neuts (Man) 2.0 10/cmm (1.6-7.1) 02/20/23 04:35 Band Neutrophils 0.0 % 02/20/23 04:35 Abs Band Neuts (Man) 0.0 10^3/cmm (0.0-1.2) 02/20/23 04:35 Absolute Lymphocytes 1.9 10^3/cmm (1.2-3.4) 02/20/23 04:35 Lymphocytes (Manual) 38 % 02/20/23 04:35 Monocytes (Manual) 19.0 % 02/20/23 04:35 Absolute Monocytes 1.0 10^3/cmm (0.1-0.6) H 02/20/23 04:35 Eosinophils (Manual) 2 % 02/20/23 04:35 Absolute Eosinophils 0.1 10^3/cmm (0.0-0.7) 02/20/23 04:35 Basophils (Manual) 0.0 % 02/20/23 04:35 Absolute Basophils 0.0 10^3/cmm (0.0-0.2) 02/20/23 04:35 Metamyelocytes 1.0 % 02/20/23 04:35 Nucleated RBCs # 0.0 /100WBC 02/19/23 03:32 Pathologist Review Yes 02/20/23 04:35 Smudge Cells 1+ H 02/20/23 04:35 Platelet Estimate Decreased (Normal) 02/20/23 04:35 Hypochromasia 1+ H 02/20/23 04:35 Anisocytosis 2+ H 02/20/23 04:35 PT 20.80 SECONDS (12.1-14.9) H 02/18/23 17:45 INR 1.72 (0.8-1.2) H 02/18/23 17:45 Sodium 130 mmol/L (136-145) L 02/20/23 04:35 Potassium 3.8 mmol/L (3.5-5.1) 02/20/23 04:35 Chloride 96 mmol/L (98-107) L 02/20/23 04:35 Carbon Dioxide 27 mmol/L (22-29) 02/20/23 04:35 Anion Gap 10.8 (5-19) 02/20/23 04:35 BUN 9 mg/dL (6-20) 02/20/23 04:35 Creatinine 0.7 mg/dL (0.7-1.2) 02/20/23 04:35 GFR Calculation 116.7 mL/min (90-130) 02/20/23 04:35 Glucose 135 mg/dL (65-115) H 02/20/23 04:35 Calculated Osmolality 271 mOsm/kg (285-295) L 02/20/23 04:35 Lactic Acid 1.9 mmol/L (0.5-2.2) 02/18/23 13:10 Calcium 8.0 mg/dL (8.5-10.5) L 02/20/23 04:35 Magnesium 1.6 mg/dL (1.7-2.3) L 02/20/23 04:35 Iron 35 ug/dL (59-158) L 02/18/23 12:30 TIBC 336 mcg/dl 02/18/23 12:30 % Saturation 10.4 % (20-50) L 02/18/23 12:30 Unsat Iron Binding 301 ug/dL (112-347) 02/18/23 12:30 Ferritin 299 ng/mL (30-400) 02/18/23 12:30 Total Bilirubin 2.4 mg/dL (0.15-1.2) H 02/20/23 04:35 AST 89 U/L (0-40) H 02/20/23 04:35 ALT 29 U/L (0-41) 02/20/23 04:35 Alkaline Phosphatase 99 U/L (40-130) 02/20/23 04:35 C-Reactive Protein 14.1 mg/L (0.0-4.9) H 02/19/23 03:32 NT-Pro-B Natriuret Pep 324 pg/mL (0-125) H 02/18/23 12:30 Total Protein 7.5 g/dL (6.6-8.7) 02/20/23 04:35 Albumin 2.6 g/dL (3.5-5.2) L 02/20/23 04:35 Globulin 4.9 g/dL (1.3-4.6) H 02/20/23 04:35 Lipase 205 U/L (13-60) H 02/20/23 04:35 Procalcitonin 0.24 ng/mL (0-0.5) 02/18/23 12:30 Urine Color [place] (Yellow) 02/19/23 19:37 Urine Appearance Sl hazy (CLEAR) A 02/19/23 19:37 Urine pH 5 (5-7) 02/19/23 19:37 Ur Specific [place] 1.010 (1.005-1.030) 02/19/23 19:37 Urine Protein Trace (Negative) 02/19/23 19:37 Urine Glucose (UA) Norm (Normal) 02/19/23 19:37 Urine Ketones 1+ (Negative) H 02/19/23 19:37 Urine Blood 2+ (Negative) H 02/19/23 19:37 Urine Nitrate Negative (Negative) 02/19/23 19:37 Urine Bilirubin Neg (Negative) 02/19/23 19:37 Urine Urobilinogen Norm mg/dL (Negative) 02/19/23 19:37 Ur Leukocyte Esterase Negative (Negative) 02/19/23 19:37 Urine RBC 5-10 /hpf (0-2) H 02/19/23 19:37 Urine WBC 0-4 /hpf (0-5) H 02/19/23 19:37 Ur Squamous Epith Cells 0-4 /hpf (0-5) H 02/19/23 19:37 Amorphous Sediment 2+ /hpf 02/19/23 19:37 Urine Bacteria Not Reportable 02/19/23 19:37 Hyaline Casts 0-4 /lpf H 02/19/23 19:37 Fine Granular Casts 0-4 /lpf H 02/19/23 19:37 Urine Mucus 2+ /hpf 02/19/23 19:37 Vancomycin Trough 10.9 ug/mL (10-15) 02/20/23 04:35 Coronavirus 229E (PCR) Not detected (NOT DETECT) 02/18/23 13:15 Influenza Type A Ag negative (Negative) 02/18/23 13:15 Influenza Type B Ag negative (Negative) 02/18/23 13:15 SARS-CoV-2 (PCR) Not detected (NOT DETECT) 02/18/23 13:15 Blood Type O Negative 02/18/23 14:00 Rho(D) Type Negative 02/18/23 14:00 Antibody Screen Negative 02/18/23 14:00 Crossmatch See Detail 02/18/23 14:00 Procedures Performed None Vitals Last Vital Signs Temp 98.2 F 02/20/23 03:43 Pulse 88 02/20/23 11:54 Resp 19 H 02/20/23 11:54 BP 133/76 02/20/23 11:54 Pulse Ox 93 02/20/23 11:54 O2 Del Method Nasal Cannula 02/20/23 07:16 O2 Flow Rate 2 02/20/23 07:58 FiO2 32 02/18/23 17:45 Discharge Plan Discharge Patient Disposition: Home Condition: Stable Prescriptions: New ferrous sulfate 325 mg (65 mg iron) tablet 325 mg PO DAILY Qty: 30 1RF levofloxacin 750 mg tablet 750 mg PO DAILY 7 Days Qty: 7 0RF Continued levothyroxine [Euthyrox] 50 mcg tablet 50 mcg PO QAM spironolactone 25 mg tablet 25 mg PO DAILY furosemide 40 mg tablet 40 mg PO DAILY pantoprazole 40 mg tablet,delayed release (DR/EC) 40 mg PO BID lidocaine 5 % adhesive patch,medicated See Rx Instructions .ROUTE .COMPLEX Rx Instructions: 1 patch transdermally ON FOR 12H OFF FOR 12 HR Klor-Con 10 10 mEq tablet extended release 10 meq PO TID Discharge Orders: Discharge Order (Routine); Ordered 02/20/23 Ordered By: Giorgio Alarcon Other Ambulatory Orders: DME: Oxygen (Order) Location: None Selected Ordered By: Lex Victoria Referrals: Elizabeth Gagnon MD [Primary Care Provider] - 1-3 days (Please call Wednesday to schedule a follow up appointment.) Discharge Diet: Advance as tolerated and Usual diet Discharge Activity: Resume usual activity and Increase activity as tolerated Patient Instructions: Anemia, Iron Supplements (By mouth), Levofloxacin (By mouth), Pancreatitis (GEN), Opioid Safety, Pain Management Activity Restrictions/Additional Instructions: 1. Take medications as prescribed. 2. Follow up with provider as above. Discharge Attestations Time Spent in Discharge Care*: greater than 30 min Quality Metrics Clinical Quality Measures [ No reported AMI, CVA or VTE this stay] Coding Level of Care Code Acute Code for Chg Fwd Diagnoses Anemia D64.9 Acute pancreatitis K85.90 COPD (chronic obstructive pulmonary disease) J44.9 Hyponatremia E87.1
== END 2023-02-20 15:25 | disposition home or self-care (01) | DRG 439 ==
LOC: ER 15:22 → MEDSURG 16:17
PROVIDERS: Admitting Provider Internal Medicine; Emergency Provider Family Medicine; PCP Family Medicine; Visit Provider Internal Medicine
DX: K85.90 Acute pancreatitis without necrosis or infection, unspecified (principal); E87.1 Hypo-osmolality and hyponatremia; K76.6 Portal hypertension; L03.311 Cellulitis of abdominal wall; J44.9 Chronic obstructive pulmonary disease, unspecified; Z98.1 Arthrodesis status; K70.30 Alcoholic cirrhosis of liver without ascites; F10.20 Alcohol dependence, uncomplicated; F17.210 Nicotine dependence, cigarettes, uncomplicated; E03.9 Hypothyroidism, unspecified; D69.59 Other secondary thrombocytopenia; D73.1 Hypersplenism; D50.9 Iron deficiency anemia, unspecified; E86.1 Hypovolemia
CPT/HCPCS: 36415; 36430; 71045; 74176; 80048; 80053; 80202; 81001; 82728; 83540; 83550; 83605; 83690; 83735; 83880; 84145; 85007; 85025; 85610; 86140; 86850; 86900; 86920; 87040; 87493; 87635; 87804; 93005; 94640; 94660; 94760; 99285; C9113; J0692; J1756; J3370; J7030; P9016

== ENCOUNTER 2023-02-28 11:31 | Emergency (ER) | payer MEDICARE, MEDICAID, SELFPAY ==
[2023-02-28 11:53] VITALS: BP 128/77; PULSE 94; RESP 17; O2SAT 94
--- NOTE | 2023-02-28 13:04 | ED_ITS ---
HPI - Male Genitourinary General: Chief complaint: Urogenital-Male Stated complaint: Pain in testicles Time Seen by Provider: 02/28/23 12:21 Source: patient Mode of arrival: ambulatory History of Present Illness: 57-year-old male presents emergency room complaining of swelling in the scrotum and his lower extremities. He was recently hospitalized with lower extremity edema he was discharged home little over a week ago. He states he gained 30 pounds since he was discharged. He is concerned he may have an infection in the scrotum and notices a small nodule on palpation along the midline of the scrotum inferiorly and posteriorly. He denies any hematuria dysuria urgency or frequency no flank pain no chest pain no orthopnea. MD Complaint: testicle swelling Onset (ago): day(s) Duration: constant Severity: moderate Quality: aching Relieving factors: none Exacerbating factors: none Associated symptoms: Deny discharge, dysuria, fevers/chills, hematuria, nausea, rash, swelling, urinary incontinence, urinary retention, mass or vomiting Review of Systems Const: Denies: fever(s), chills, body aches, change in appetite, fatigue or malaise ENMT: Denies: throat pain, ear or mastoid pain, nasal discharge or nasal congestion Card: Reports: edema and swelling of feet/ankles; Denies: chest pain, dyspnea on exertion or orthopnea Resp: Reports: dyspnea GI: Denies: abdominal pain, nausea or vomiting : Reports: difficulty urinating; Denies: flank pain, dysuria, urinary frequency, urinary urgency, urinary incontinence or hematuria Musc: Reports: extremity pain and extremity swelling; Denies: neck pain or back pain Skin/Breast: Denies: rash or pruritus PFSH ED PFSH: Medical History Acute dyspnea Acute metabolic encephalopathy Alcoholism Ascites COPD (chronic obstructive pulmonary disease) COPD exacerbation Cough Diarrhea Fever Generalized weakness Hyperkalemia Hyponatremia Hypothyroid Hypoxia Influenzal pneumonia Liver cirrhosis Lumbar radiculopathy, chronic Respiratory failure with hypoxia and hypercapnia Shortness of breath Surgical History S/P laminectomy with spinal fusion Family History Father CAD (coronary artery disease) Social History Smoking and tobacco status: current every day smoker Alcohol intake: current Alcohol intake frequency: 3 or more drinks per day Substance/Drug Use: current Physical Exam Const: GENERAL APPEARANCE: cooperative and comfortable ORIENTATION/CONSCIOUSNESS: Yes awake, Yes oriented to person, Yes oriented to place and Yes oriented to time HENMT: COMMON NORMALS: normocephalic, atraumatic and hearing grossly normal bilaterally HEAD & SCALP: normocephalic and atraumatic Resp: COMMON NORMALS: normal respiratory effort, No retractions, No use of accessory muscles and clear to auscultation bilaterally AUSCULTATION: clear to auscultation bilaterally Cardio: COMMON NORMALS: regular rate, regular rhythm and No murmurs present (Cardio) RATE: regular rate RHYTHM: regular rhythm GI: COMMON NORMALS: Soft to palpation and No hepatosplenomegaly present AUSCULTATION: Yes normoactive bowel sounds PALPATION: Yes Soft to palpation, No Tenderness to palpation present (GI), No Guarding due to palpation present (GI) and Yes No hepatosplenomegaly present : OTHER: Significant swelling of the penis and scrotum there is a small palpable nodule in the posterior aspect of the scrotum along the midline raphae. Extremity: COMMON NORMALS: normal to inspection, capillary refill normal and no calf tenderness Neuro: SENSORIUM/ORIENTATION: Yes oriented to person, Yes oriented to place and Yes oriented to time Skin: COMMON NORMALS: no rashes or lesions noted GENERAL SKIN EXAM: no rashes or lesions noted Course Vital Signs: Vital signs: Vital Signs Pulse Rate 94 02/28/23 11:53 Respiratory Rate 18 02/28/23 14:00 Blood Pressure 132/80 02/28/23 14:00 Pulse Oximetry 97 02/28/23 14:00 Oxygen Delivery Me thod Room Air 02/28/23 11:53 MDM - Male Medical Decision Making Labs and imaging reviewed. He is currently on antibiotics for cellulitis he does not look to have a significant cellulitis there is no signs of redness or erythema now it looks more like he has significant swelling in his scrotum not a ongoing active infection I do think he should continue the antibiotics however since we did not see this initially when the antibiotics were started. Additionally he did said a good response to the Lasix given in the emergency room increase his Lasix to 80 mg a day increase the potassium to 10 mg 3 times daily and encouraged him to follow-up with his doctor in sometime in the next 3 to 4 days return if he has worsening problems. Medical Records I reviewed the patient's medical records. Lab Data I reviewed the patient's lab results. 02/28/23 13:03 02/28/23 13:03 Radiology Impressions Chest X-Ray 02/28/23 13:05 IMPRESSION: No acute findings. Scrotum Ultrasound 02/28/23 13:36 IMPRESSION: Bilateral scrotal cellulitis and hydroceles. Laboratory Results WBC 7.8 10^3/uL (4.0-10.0) 02/28/23 13:03 RBC 3.89 10^6/uL (4.1-5.3) L 02/28/23 13:03 Hgb 9.9 g/dL (11.7-16.6) L 02/28/23 13:03 Hct 31.9 % (42.0-52.0) L 02/28/23 13:03 MCV 82.0 fl (80-94) 02/28/23 13:03 MCH 25.4 pg (28.0-34.0) L 02/28/23 13:03 MCHC 31.0 g/dL (30.0-36.0) 02/28/23 13:03 RDW 23.9 % (12.1-15.1) H 02/28/23 13:03 Plt Count 120 10^3/cmm (130-400) L 02/28/23 13:03 MPV 11.0 fL (7.4-10.4) H 02/28/23 13:03 Neut % (Auto) 28.2 % 02/28/23 13:03 Lymph % (Auto) 51.7 % 02/28/23 13:03 [place] % (Auto) 16.8 % 02/28/23 13:03 Eos % (Auto) 0.4 % 02/28/23 13:03 Baso % (Auto) 1.5 % 02/28/23 13:03 Neut # (Auto) 2.19 10^3/uL (1.8-7.7) 02/28/23 13:03 Lymph # (Auto) 4.0 10^3/uL (0.8-4.8) 02/28/23 13:03 [place] # (Auto) 1.3 10^3/uL (0.2-0.9) H 02/28/23 13:03 Eos # (Auto) 0.0 10^3/uL (0.0-0.8) 02/28/23 13:03 Baso # (Auto) 0.1 10^3/uL (0.0-0.1) 02/28/23 13:03 Nucleated RBC % (auto) 0.3 % 02/28/23 13:03 Nucleated RBCs # 0.0 /100WBC 02/28/23 13:03 Sodium 127 mmol/L (136-145) L 02/28/23 13:03 Potassium 3.5 mmol/L (3.5-5.1) 02/28/23 13:03 Chloride 88 mmol/L (98-107) L 02/28/23 13:03 Carbon Dioxide 27 mmol/L (22-29) 02/28/23 13:03 Anion Gap 15.5 (5-19) 02/28/23 13:03 BUN 7 mg/dL (6-20) 02/28/23 13:03 Creatinine 0.7 mg/dL (0.7-1.2) 02/28/23 13:03 GFR Calculation 116.7 mL/min (90-130) 02/28/23 13:03 Glucose 121 mg/dL (65-115) H 02/28/23 13:03 Calculated Osmolality 263 mOsm/kg (285-295) L 02/28/23 13:03 Calcium 8.4 mg/dL (8.5-10.5) L 02/28/23 13:03 Total Bilirubin 2.4 mg/dL (0.15-1.2) H 02/28/23 13:03 AST 57 U/L (0-40) H 02/28/23 13:03 ALT 24 U/L (0-41) 02/28/23 13:03 Alkaline Phosphatase 108 U/L (40-130) 02/28/23 13:03 NT-Pro-B Natriuret Pep 75 pg/mL (0-125) 02/28/23 13:03 Total Protein 8.3 g/dL (6.6-8.7) 02/28/23 13:03 Albumin 2.7 g/dL (3.5-5.2) L 02/28/23 13:03 Globulin 5.6 g/dL (1.3-4.6) H 02/28/23 13:03 Urine Color Yellow (Yellow) 02/28/23 13:00 Urine Appearance Clear (CLEAR) 02/28/23 13:00 Urine pH 5 (5-7) 02/28/23 13:00 Ur Specific [place] 1.005 (1.005-1.030) 02/28/23 13:00 Urine Protein Neg (Negative) 02/28/23 13:00 Urine Glucose (UA) Norm (Normal) 02/28/23 13:00 Urine Ketones Negative (Negative) 02/28/23 13:00 Urine Blood Neg (Negative) 02/28/23 13:00 Urine Nitrate Negative (Negative) 02/28/23 13:00 Urine Bilirubin Neg (Negative) 02/28/23 13:00 Urine Urobilinogen Norm mg/dL (Negative) 02/28/23 13:00 Ur Leukocyte Esterase Negative (Negative) 02/28/23 13:00 Discharge Plan Discharge Patient Disposition: Home Clinical Impression: Fluid retention in tissues Condition: Stable Prescriptions: New furosemide 80 mg tablet 80 mg PO DAILY Qty: 30 0RF Changed Klor-Con 10 10 mEq tablet extended release 10 meq PO 3XD Qty: 90 0RF Discontinued furosemide 40 mg tablet 40 mg PO QAM No Action levothyroxine [Euthyrox] 50 mcg tablet 50 mcg PO QAM pantoprazole 40 mg tablet,delayed release (DR/EC) 40 mg PO QAM lidocaine 5 % adhesive patch,medicated See Rx Instructions .ROUTE .COMPLEX Rx Instructions: 1-3 patches transdermally as directed ON FOR 12H OFF FOR 12 HR ferrous sulfate 325 mg (65 mg iron) tablet 325 mg PO DAILY Qty: 30 1RF Rx Instructions: (not started as of 02/28/23) trazodone 50 mg Tablet 200 mg PO BEDTIME spironolactone 100 mg tablet 100 mg PO QAM Levaquin 750 mg Tablet 750 mg PO DAILY Rx Instructions: for 7 days (rx filled 02/20/23) Discharge Orders: Discharge ED (Routine); Ordered 02/28/23 Ordered By: Kory Hodgson Referrals: Elizabeth Gagnon MD [Primary Care Provider] - Discharge Diet: Usual diet Discharge Activity: Increase activity as tolerated Patient Instructions: Opioid Safety, Pain Management Activity Restrictions/Additional Instructions: You are seen today for swelling in your legs and scrotum recommend you increase your Lasix to 80 mg daily increase your potassium supplement to 10 mg 3 times daily. Continue to take the levofloxacin and follow-up with your doctor within the next 3 days. If you have worsening or change symptoms return to the emergency room. Coding Level of Care Code ED Wood Preparation Supervisor for Carlos Enrique Merritt
--- NOTE | 2023-02-28 13:05 | XRR_ITS ---
PROCEDURE INFORMATION: Exam: XR Chest Exam date and time: 02/28/2023 1:13 PM Age: 57 years old Clinical indication: Other: Testicular pain; Additional info: Dyspnea/cough TECHNIQUE: Imaging protocol: Radiologic exam of the chest. Views: 1 view. COMPARISON: CR XR chest 1V portable [id number] 02/18/2023 12:39 PM FINDINGS: Lungs: Unremarkable. No consolidation. Pleural spaces: Unremarkable. No pleural effusion. No pneumothorax. Heart/Mediastinum: Unremarkable. No cardiomegaly. Bones/joints: Unremarkable. XR/XR chest 1V portable [id number] IMPRESSION: No acute findings.
--- NOTE | 2023-02-28 13:18 | ECG_ITS ---
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 Measurements Intervals [place] Rate: 88 P: 73 [place]: 186 QRS: -73 QRSD: 111 T: 61 QT: 382 QTc: 463 Interpretive Statements SINUS RHYTHM PATTERN CONSISTENT WITH PULMONARY DISEASE LEFT ANTERIOR FASCICULAR BLOCK [QRS AXIS <= -45, QR IN I, RS IN II] Compared to ECG 02/18/2023 12:27:01 No significant changes Electronically Signed On 02-28-2023 15:45:07 CDT by Baltazar Michelle M.D. [id number]
[2023-02-28 13:28] LABS: Basophils # 0.1 10^3/uL (0.0-0.1); Basophils % 1.5 %; Eosinophils % 0.4 %; Hematocrit 31.9 % (42.0-52.0); Hemoglobin 9.9 g/dL (11.7-16.6); Lymphocytes % 51.7 %; Mean Corpuscular Hemoglobin 25.4 pg (28.0-34.0); Monocytes # 1.3 10^3/uL (0.2-0.9); Monocytes % 16.8 %; Neutrophils # 2.19 10^3/uL (1.8-7.7); Neutrophils % 28.2 %; Nucleated Red Blood Cells % 0.3 %; Platelet Count 120 10^3/cmm (130-400); Positive M 1; Red Blood Count 3.89 10^6/uL (4.1-5.3); Red Cell Distribution Width 23.9 % (12.1-15.1); White Blood Count 7.8 10^3/uL (4.0-10.0)
--- NOTE | 2023-02-28 13:36 | USR_ITS ---
PROCEDURE INFORMATION: Exam: US Scrotum Exam date and time: 02/28/2023 1:52 PM Age: 57 years old Clinical indication: Scrotum pain; Additional info: Pain/swelling TECHNIQUE: Imaging protocol: Real-time ultrasound of the scrotum and contents with color Doppler and image documentation. COMPARISON: CT abdomen pelvis con [id number] 02/18/2023 2:31 PM FINDINGS: Right testicle: Normal. No mass. No torsion. Normal vascular flow. Left testicle: Normal. No mass. No torsion. Normal vascular flow. Epididymides: Normal. Scrotum/soft tissues: Bilateral hydroceles. There is thickening and edema of the bilateral scrotal marques. US/US scrotum [id number] IMPRESSION: Bilateral scrotal cellulitis and hydroceles.
--- NOTE | 2023-02-28 13:41 | PC.PHAR ---
pt states he takes care of his own medications-pt states he hasnt started taking the ferrous sulfate 325mg daily as of 02/28/23 rx filled 02/20/23-pt states he is only taking lasix 40mg qam filled 01/28/23 30d/s [facility] filled 02/26/23 for 40mg bid that hasnt been picked up yet-kcl 10meq tid filled 01/20/23 30d/s pt states he takes 10meq qam-rx filled for pantoprazole 40mg bid pt states he only takes 40mg qam-rx filled 01/22/23 30d/s for trazodone 50 150mg hs prn pt states he takes 200mg hs-notes are made in the pharmacy comments
[2023-02-28] MEDS: FUROsemide 10 mg/mL SDV 10mL 80 MG IVP (13:51)
[2023-02-28 14:00] VITALS: BP 132/80; RESP 18; O2SAT 97
[2023-02-28 14:05] LABS: Alanine Aminotransferase 24 U/L (0-41); Albumin Level 2.7 g/dL (3.5-5.2); Alkaline Phosphatase 108 U/L (40-130); Aspartate Amino Transferase 57 U/L (0-40); Blood Urea Nitrogen 7 mg/dL (6-20); Calcium 8.4 mg/dL (8.5-10.5); Carbon Dioxide 27 mmol/L (22-29); Chloride 88 mmol/L (98-107); Globulin 5.6 g/dL (1.3-4.6); Glomerular Filtration Rate 116.7 mL/min (90-130); Glucose 121 mg/dL (65-115); NT Pro B Type Natriuretic Pept 75 pg/mL (0-125); Osmolality Calculated 263 mOsm/kg (285-295); Sodium 127 mmol/L (136-145); Total Bilirubin 2.4 mg/dL (0.15-1.2); Total Protein 8.3 g/dL (6.6-8.7)
[2023-02-28 14:06] LABS: Add Urine Microscopic? NO; Charge for UA Resulting for Rev
[2023-02-28 14:07] LABS: Anion Gap 15.5 (5-19); Potassium 3.5 mmol/L (3.5-5.1)
[2023-02-28 14:18] LABS: Bilirubin Urine Neg (Negative); Blood Urine Neg (Negative); Glucose Urine UA Norm (Normal); Ketones Urine Negative (Negative); Leukocyte Esterase Urine Negative (Negative); Nitrate Urine Negative (Negative); Protein Urine Neg (Negative); Specific Gravity, Urine 1.005 (1.005-1.030); Urine Appearance Clear (CLEAR); Urine Color Yellow (Yellow); Urobilinogen Urine Norm (Negative); pH Urine 5 (5-7)
[2023-02-28 15:22] VITALS: PULSE 87; RESP 22; O2SAT 95
[2023-03-01 12:22] LABS: Bacillus cereus group Not Detected (NOT DETECT); Bacillus subtillis group Not Detected (NOT DETECT); Corynebacterium Not Detected (NOT DETECT); Cutibacterium acnes (P.acnes) Not Detected (NOT DETECT); Enterococcus Not Detected (NOT DETECT); Enterococcus faecalis Not Detected (NOT DETECT); Enterococcus faecium Not Detected (NOT DETECT); Lactobacillus species Not Detected (NOT DETECT); Listeria Not Detected (NOT DETECT); Listeria monocytogenes Not Detected (NOT DETECT); Micrococcus Not Detected (NOT DETECT); Pan Candida Not Detected (NOT DETECT); Pan Gram-Negative Not Detected (NOT DETECT); Staphylococcus epidermidis Detected (NOT DETECT); Staphylococcus lugdunensis Not Detected (NOT DETECT); Staphylococcus species Detected (NOT DETECT); Streptococcus agalactiae Not Detected (NOT DETECT); Streptococcus anginosus group Not Detected (NOT DETECT); Streptococcus pneumoniae Not Detected (NOT DETECT); Streptococcus pyogenes Not Detected (NOT DETECT); Streptococcus species Not Detected (NOT DETECT); mecA Not Detected (NOT DETECT); mecC Not Detected (NOT DETECT)
== END 2023-02-28 15:22 | disposition home or self-care (01) ==
PROVIDERS: Emergency Medicine; Emergency Provider Family Medicine; PCP Family Medicine
DX: N49.2 Inflammatory disorders of scrotum (principal); R60.9 Edema, unspecified; N43.3 Hydrocele, unspecified; F17.210 Nicotine dependence, cigarettes, uncomplicated; J44.9 Chronic obstructive pulmonary disease, unspecified
CPT/HCPCS: 36415; 71045; 76870; 80053; 81003; 83880; 85025; 87040; 87150; 87205; 93005; 96374; 99285; J1940

== ENCOUNTER 2023-03-31 07:13 | Inpatient (IN) | payer MEDICARE, MEDICAID, SELFPAY ==
[2023-03-31] VITALS (38 sets, daily range): BP systolic 114–158; BP diastolic 49–86; PULSE 74–98; RESP 12–27; TEMP 36.9; O2SAT 88–99
--- NOTE | 2023-03-31 07:27 | XR_ITS ---
WS: [id number] EXAMINATION: XR chest 1V portable [id number] REASON FOR EXAM: dyspnea/cough COMPARISON: 02/28/2023 ORDER DATE: 03/31/2023 7:31 AM TECHNIQUE: A single, portable frontal chest x-ray was obtained. X-RAY FINDINGS: The lungs are clear. Pleural spaces are clear. No pleural effusions or pneumothorax. Cardiomediastinal silhouette is normal. No evidence for pulmonary edema. Soft tissue and osseous structures are unremarkable. No tubes or lines are present. XR/XR chest 1V portable [id number] IMPRESSION: Unremarkable frontal portable chest x-ray.
--- NOTE | 2023-03-31 07:27 | ECG_ITS ---
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 Measurements Intervals [place] Rate: 87 P: 76 [place]: 200 QRS: -87 QRSD: 122 T: 49 QT: 408 QTc: 492 Interpretive Statements SINUS RHYTHM LEFT ANTERIOR FASCICULAR BLOCK [QRS AXIS <= -45, QR IN I, RS IN II] MINIMAL ST DEPRESSION [0.025+ mV ST DEPRESSION] Compared to ECG 02/28/2023 13:18:22 ST (T wave) deviation now present Electronically Signed On 03-31-2023 20:25:08 CDT by Missy Beck M.D. [email or web address] g[facility]portKivun Had[facility]select [facility] [id number]
--- NOTE | 2023-03-31 07:41 | USCV_ITS ---
Eliezer Reynolds Age: 57 Gender: M : 1965 Exam Date: 03/31/2023 08:04 Ordering Phys: Kory Hodgson DO Technologist: KATHY Exam Location: [facility] Indication: LE SWELLING AND PAIN HISTORY: Lower extremity swelling. Lower extremity pain. PROCEDURES: Venous duplex imaging was performed in bilateral lower extremities. The following venous structures were evaluated: common femoral vein, profunda vein, proximal portion of the greater saphenous vein, superficial femoral vein, and the popliteal vein. In addition, the posterior tibial and peroneal trunk were evaluated. Serial compression, augmentation maneuvers, and spectral Doppler flow evaluation were performed. FINDINGS: No evidence of DVT seen in any vessel visualized at this time. Enlarged right lymph node noted in rt groin CONCLUSIONS No evidence of right lower extremity DVT. No evidence of left lower extremity DVT. Enlarged non-specific lymph node right groin measuring 2.0 x 1.4 x 2.5cm. Recommend clinical correlation. This may be reactive but neoplasm not excluded. Hakeem Wilson MD (Electronically Signed) Final Date: 31 March 2023 12:07 S
[2023-03-31 07:43] LABS: Basophils % 0.5 %; Eosinophils # 0.1 10^3/uL (0.0-0.8); Eosinophils % 0.9 %; Hematocrit 28.3 % (42.0-52.0); Hemoglobin 9.2 g/dL (11.7-16.6); Lymphocytes # 1.3 10^3/uL (0.8-4.8); Lymphocytes % 23.1 %; Mean Corpuscular HGB Conc 32.5 g/dL (30.0-36.0); Mean Corpuscular Hemoglobin 25.1 pg (28.0-34.0); Mean Corpuscular Volume 77.1 fl (80-94); Mean Platelet Volume 9.3 fL (7.4-10.4); Monocytes # 0.7 10^3/uL (0.2-0.9); Monocytes % 11.5 %; Neutrophils % 63.6 %; Nucleated Red Blood Cells % 0 %; Platelet Count 190 10^3/cmm (130-400); Red Blood Count 3.67 10^6/uL (4.1-5.3); Red Cell Distribution Width 20.8 % (12.1-15.1); White Blood Count 5.7 10^3/uL (4.0-10.0)
--- NOTE | 2023-03-31 07:43 | ED_ITS ---
HPI - SOB/Dyspnea General: Chief Complaint: Shortness of Breath/Dyspnea Stated Complaint: Pain and Swelling Time Seen by Provider: 03/31/23 07:24 Source: patient Mode of arrival: EMS History of Present Illness: HPI Narrative: 57-year-old male presents to the emergency room with complaints of shortness of breath productive cough over the last several days he is noticed significant increase in swelling in his lower extremities well he is on diuretics he is also been on levofloxacin. Despite this the swelling is actually worsened. He is not particularly noticed any orthopnea. He has had increase in his baseline productive cough but still clear to whitish mucousy sputum. Denies any chest pain no fever that he is noticed subjectively or objectively. Associated symptoms: Reports extremity pain and orthopnea; Deny abdominal pain, chest pain, fever(s), nausea, palpitations or vomiting Review of Systems Const: Denies: fever(s), chills, body aches, change in appetite, fatigue or malaise ENMT: Denies: throat pain, ear or mastoid pain, nasal discharge or nasal congestion Card: Reports: edema and orthopnea; Denies: chest pain, palpitations or dyspnea on exertion Resp: Reports: dyspnea; Denies: productive cough or non-productive cough GI: Denies: abdominal pain, nausea, vomiting, hematemesis, coffee ground emesis, diarrhea, constipation, bloating, hematochezia or melena : Denies: flank pain, dysuria, urinary frequency or urinary urgency Musc: Reports: neck pain, back pain, extremity pain and extremity swelling Skin/Breast: Denies: rash or pruritus PFS ED PFSH: Medical History Acute dyspnea Acute metabolic encephalopathy Alcoholism Ascites COPD (chronic obstructive pulmonary disease) COPD exacerbation Cough Diarrhea Fever Generalized weakness Hyperkalemia Hyponatremia Hypothyroid Hypoxia Influenzal pneumonia Liver cirrhosis Lumbar radiculopathy, chronic Respiratory failure with hypoxia and hypercapnia Shortness of breath Surgical History S/P laminectomy with spinal fusion Family History Father CAD (coronary artery disease) Social History Smoking and tobacco status: current every day smoker Alcohol intake: current Alcohol intake frequency: 3 or more drinks per day Substance/Drug Use: current Physical Exam Const: GENERAL APPEARANCE: cooperative ORIENTATION/CONSCIOUSNESS: Yes awake, Yes oriented to person, Yes oriented to place and Yes oriented to time HENMT: COMMON NORMALS: normocephalic, atraumatic and hearing grossly normal bilaterally HEAD & SCALP: normocephalic and atraumatic Resp: COMMON NORMALS: No retractions and No use of accessory muscles AUSCULTATION: crackles and wheezes Cardio: COMMON NORMALS: regular rate, regular rhythm and No murmurs present (Cardio) RATE: regular rate RHYTHM: regular rhythm GI: COMMON NORMALS: Soft to palpation and No hepatosplenomegaly present AUSCULTATION: Yes normoactive bowel sounds PALPATION: Yes Soft to palpation, No Tenderness to palpation present (GI), No Guarding due to palpation present (GI) and Yes No hepatosplenomegaly present Extremity: COMMON NORMALS: normal to inspection, capillary refill normal and no calf tenderness GENERAL: Yes edema Neuro: SENSORIUM/ORIENTATION: Yes oriented to person, Yes oriented to place and Yes oriented to time Skin: COMMON NORMALS: no rashes or lesions noted GENERAL SKIN EXAM: no rashes or lesions noted Course Vital Signs: Vital signs: Vital Signs Temperature 98.2 F 04/03/23 07:40 Pulse Rate 74 04/03/23 07:40 Respiratory Rate 17 04/03/23 07:40 Blood Pressure 144/79 04/03/23 07:40 Pulse Oximetry 94 04/03/23 07:40 Oxygen Delivery Me thod Nasal Cannula 04/03/23 07:40 Oxygen Flow Rate 2 04/03/23 07:40 MDM - SOB/Dyspnea Medical Decision Making Fluid overloaded history of liver cirrhosis INR 1 only elevated hyponatremia hypokalemia hypomagnesemia T. bili elevated only minimal elevation of the transaminases in line with what he has had in the past. Admit for electrolyte disorders congestive heart failure discussed with hospitalist he is already been given Lasix. Orders written Medical Records I reviewed the patient's medical records. Lab Data I reviewed the patient's lab results. 04/03/23 01:54 04/03/23 01:54 Labs/Radiology: Radiology Impressions Chest X-Ray 03/31/23 07:27 IMPRESSION: Unremarkable frontal portable chest x-ray. Laboratory Results WBC 5.7 10^3/uL (4.0-10.0) 03/31/23 07:36 RBC 3.67 10^6/uL (4.1-5.3) L 03/31/23 07:36 Hgb 9.2 g/dL (11.7-16.6) L 03/31/23 07:36 Hct 28.3 % (42.0-52.0) L 03/31/23 07:36 MCV 77.1 fl (80-94) L 03/31/23 07:36 MCH 25.1 pg (28.0-34.0) L 03/31/23 07:36 MCHC 32.5 g/dL (30.0-36.0) 03/31/23 07:36 RDW 20.8 % (12.1-15.1) H 03/31/23 07:36 Plt Count 190 10^3/cmm (130-400) 03/31/23 07:36 MPV 9.3 fL (7.4-10.4) 03/31/23 07:36 Neut % (Auto) 63.6 % 03/31/23 07:36 Lymph % (Auto) 23.1 % 03/31/23 07:36 [place] % (Auto) 11.5 % 03/31/23 07:36 Eos % (Auto) 0.9 % 03/31/23 07:36 Baso % (Auto) 0.5 % 03/31/23 07:36 Neut # (Auto) 3.60 10^3/uL (1.8-7.7) 03/31/23 07:36 Lymph # (Auto) 1.3 10^3/uL (0.8-4.8) 03/31/23 07:36 [place] # (Auto) 0.7 10^3/uL (0.2-0.9) 03/31/23 07:36 Eos # (Auto) 0.1 10^3/uL (0.0-0.8) 03/31/23 07:36 Baso # (Auto) 0.0 10^3/uL (0.0-0.1) 03/31/23 07:36 Nucleated RBC % (auto) 0 % 03/31/23 07:36 Nucleated RBCs # 0.0 /100WBC 03/31/23 07:36 PT 18.50 SECONDS (12.1-14.9) H 03/31/23 07:36 INR 1.49 (0.8-1.2) H 03/31/23 07:36 APTT 45.3 SECONDS (23.9-36.7) H 03/31/23 07:36 Specimen Type Arterial 03/31/23 09:45 Sample Site Radial, left 03/31/23 09:45 ABG pH 7.70 (7.35-7.45) H* 03/31/23 09:45 ABG pCO2 38.1 mmHg (35-45) 03/31/23 09:45 ABG pO2 82.7 mmHg (80.0-100.0) 03/31/23 09:45 ABG HCO3 46.7 mmol/L (22-26) H 03/31/23 09:45 ABG O2 Saturation 98.5 03/31/23 09:45 ABG Base Excess 24.4 mmol/L (-2.0-2.0) H 03/31/23 09:45 Ward Test Pos 03/31/23 09:45 A-a O2 Gradient 2.5 mmHg (5-10) L 03/31/23 09:45 Hematocrit 29.4 % (42-52) L 03/31/23 09:45 Hgb O2 Saturation 96.4 % (95-100) 03/31/23 09:45 Carboxyhemoglobin 2.8 %THgb (0.4-20.1) 03/31/23 09:45 Methemoglobin < 0.0 % (0.4-1.5) L 03/31/23 09:45 Total Hemoglobin 9.6 g/dL (14-18) L 03/31/23 09:45 Sodium 120.0 mmol/L (131-143) L 03/31/23 09:45 Potassium 2.2 mmol/L (3.5-5.0) L 03/31/23 09:45 Glucose 208.0 mg/dL (70-115) H 03/31/23 09:45 Ionized Calcium 0.9 mmol/L (1.1-1.4) L 03/31/23 09:45 O2 Delivery Device Nc 03/31/23 09:45 O2 Liters/Min 2.0 % 03/31/23 09:45 Shell Molder ID Cak 03/31/23 09:45 Sodium 118 mmol/L (136-145) L* 03/31/23 07:36 Potassium 2.3 mmol/L (3.5-5.1) L* 03/31/23 07:36 Chloride 70 mmol/L (98-107) L 03/31/23 07:36 Carbon Dioxide 41 mmol/L (22-29) H 03/31/23 07:36 Anion Gap 9.3 (5-19) 03/31/23 07:36 BUN 6 mg/dL (6-20) 03/31/23 07:36 Creatinine 0.7 mg/dL (0.7-1.2) 03/31/23 07:36 GFR Calculation 116.7 mL/min (90-130) 03/31/23 07:36 Glucose 206 mg/dL (65-115) H 03/31/23 07:36 Calculated Osmolality 250 mOsm/kg (285-295) L 03/31/23 07:36 Calcium 7.8 mg/dL (8.5-10.5) L 03/31/23 07:36 Magnesium 1.1 mg/dL (1.7-2.3) L 03/31/23 07:36 Total Bilirubin 2.3 mg/dL (0.15-1.2) H 03/31/23 07:36 AST 59 U/L (0-40) H 03/31/23 07:36 ALT 18 U/L (0-41) 03/31/23 07:36 Alkaline Phosphatase 128 U/L (40-130) 03/31/23 07:36 NT-Pro-B Natriuret Pep 110 pg/mL (0-125) 03/31/23 07:36 Total Protein 8.5 g/dL (6.6-8.7) 03/31/23 07:36 Albumin 2.4 g/dL (3.5-5.2) L 03/31/23 07:36 Globulin 6.1 g/dL (1.3-4.6) H 03/31/23 07:36 Lipase 111 U/L (13-60) H 03/31/23 07:36 TSH 3.79 uIU/mL (0.27-4.20) 03/31/23 07:36 Urine Color Dark yellow (Yellow) 03/31/23 08:48 Urine Appearance Clear (CLEAR) 03/31/23 08:48 Urine pH 8 (5-7) H 03/31/23 08:48 Ur Specific [place] 1.015 (1.005-1.030) 03/31/23 08:48 Urine Protein Neg (Negative) 03/31/23 08:48 Urine Glucose (UA) Norm (Normal) 03/31/23 08:48 Urine Ketones Negative (Negative) 03/31/23 08:48 Urine Blood Neg (Negative) 03/31/23 08:48 Urine Nitrate Negative (Negative) 03/31/23 08:48 Urine Bilirubin Neg (Negative) 03/31/23 08:48 Prot Sulfosalicylic Acd Negative (Negative) 03/31/23 08:48 Urine Urobilinogen 4 mg/dL (Negative) H 03/31/23 08:48 Ur Leukocyte Esterase Negative (Negative) 03/31/23 08:48 Discharge Plan Discharge Patient Disposition: Admitted As Inpatient Admit Provider: Remigio Gagnon Clinical Impression: Hyponatremia, Anemia, Hypokalemia, Hypomagnesemia, Congestive heart failure, Liver cirrhosis Condition: Stable Coding Level of Care Code ED [employer] for Carlos Enrique Merritt
[2023-03-31] MEDS: dexamethasone 10 mg/mL INJ IVP (08:05)
[2023-03-31] MEDS: FUROsemide 10 mg/mL SDV 4mL 40 MG IVP ×2 (08:05→18:02)
[2023-03-31 08:20] LABS: Alanine Aminotransferase 18 U/L (0-41); Albumin Level 2.4 g/dL (3.5-5.2); Alkaline Phosphatase 128 U/L (40-130); Anion Gap 9.3 (5-19); Aspartate Amino Transferase 59 U/L (0-40); Blood Urea Nitrogen 6 mg/dL (6-20); Calcium 7.8 mg/dL (8.5-10.5); Chloride 70 mmol/L (98-107); Globulin 6.1 g/dL (1.3-4.6); Glomerular Filtration Rate 116.7 mL/min (90-130); Glucose 206 mg/dL (65-115); NT Pro B Type Natriuretic Pept 110 pg/mL (0-125); Osmolality Calculated 250 mOsm/kg (285-295); Total Bilirubin 2.3 mg/dL (0.15-1.2); Total Protein 8.5 g/dL (6.6-8.7)
[2023-03-31] MEDS: ipratropium-albuterol 3 mL Neb INHALATION (08:21)
[2023-03-31 08:24] LABS: Carbon Dioxide 41 mmol/L (22-29); Potassium 2.3 mmol/L (3.5-5.1); Sodium 118 mmol/L (136-145)
--- NOTE | 2023-03-31 08:44 | PC.PHAR ---
pt states he takes care of his own medications-pt states he takes metolazone 2.5mg daily rx filled 03/22/23 30d/s 2.5mg daily prn -pt states he still takes pantoprazole 40mg bid rx bottle dated 12/21/22 30d/s -pt states the dr brown his spironolactone 100mg qam ext shows last filled 12/28/22 30d/s-
[2023-03-31 09:24] LABS: Add Urine Microscopic? NO; Charge for UA Resulting for Rev
[2023-03-31 09:41] LABS: Urine Appearance Clear (CLEAR); Urine Color Dark Yellow (Yellow); pH Urine 8 (5-7)
[2023-03-31 09:42] LABS: Bilirubin Urine Neg (Negative); Blood Urine Neg (Negative); Glucose Urine UA Norm (Normal); Ketones Urine Negative (Negative); Leukocyte Esterase Urine Negative (Negative); Nitrate Urine Negative (Negative); Protein Urine Neg (Negative); Specific Gravity, Urine 1.015 (1.005-1.030); Sulfosalicylic Acid Urine Negative (Negative); Urobilinogen Urine 4 mg/dL (Negative)
[2023-03-31 09:57] LABS: Blood Gas Allen Test Pos; Blood Gas Operator Identificat CAK; Blood Gas Sample Site Radial, left; Blood Gas Sample Type Arterial; Ionized Calcium Level - ABG 0.9 mmol/L (1.1-1.4); Oxygen Device NC; Potassium Level - ABG 2.2 mmol/L (3.5-5.0)
[2023-03-31 09:59] LABS: ABG PCO2 38.1 mmHg (35-45); Alveolar-Arterial Oxygen Gradi 2.5 mmHg (5-10); Arterial Blood Gas Hematocrit 29.4 % (42-52); Base Excess ABG 24.4 mmol/L (-2.0-2.0); Carboxyhemoglobin 2.8 %THgb (0.4-20.1); HCO3 ABG 46.7 mmol/L (22-26); HGB O2 Sat 96.4 % (95-100); Methemoglobin < 0.0 % (0.4-1.5); Oxygen Saturation ABG 98.5; PO2 ABG 82.7 mmHg (80.0-100.0); Total Hemoglobin 9.6 g/dL (14-18)
[2023-03-31 10:00] LABS: Lipase 111 U/L (13-60); Magnesium 1.1 mg/dL (1.7-2.3)
[2023-03-31 10:05] LABS: INR 1.49 (0.8-1.2)
[2023-03-31 10:06] LABS: Partial Thromboplastin Time 45.3 SECONDS (23.9-36.7)
[2023-03-31] MEDS: potassium chloride premix 100 ML 25 MEQ IV ×2 (10:21→14:25)
--- NOTE | 2023-03-31 12:24 | P.HP_ITS ---
Providers/Chief Complaint Admitting Physician: Remigio Gagnon MD Primary Care Provider: Elizabeth Gagnon MD Chief Complaint: Pain and Swelling History of Present Illness Eliezer Reynolds is a 57 year old male with history of cirrhosis and anemia he was recently discharged from the hospital on February 23 with anemia, acute pancreatitis, and COPD. He reports he has had increasing swelling since his hospital stay, shortness of breath, occasional nonproductive cough. He believes he may have had some chills but has not had any documented fever. No blood in stool, or black or tarry stool. Does feel tired. Some nausea. In the emergency department he got dexamethasone, 40 mg of Lasix IV, and some potassium. Review of Systems General: Reports: 10 or more systems reviewed and unremarkable except in HPI and below Card: Reports: swelling of feet/ankles; Denies: chest pain Resp: Reports: dyspnea and non-productive cough GI: Reports: nausea; Denies: abdominal pain, vomiting, hematochezia or melena Medications/Allergies Home Medications Medication Instructions Recorded Confirmed Last Taken Type levothyroxine 50 mcg tablet 50 mcg PO QAM 11/18/21 03/31/23 03/30/23 History (Euthyrox) lidocaine 5 % topical patch See Rx Instructions .Route .COMPLEX 02/18/23 03/31/23 02/18/23 History pantoprazole 40 mg tablet,delayed 40 mg PO BID 02/18/23 03/31/23 02/28/23 History release see pharmacy comment furosemide 80 mg tablet 80 mg PO DAILY #30 tabs 02/28/23 03/31/23 Unknown Rx trazodone 50 mg tablet 150 mg PO BEDTIME 02/28/23 03/31/23 Unknown History metolazone 2.5 mg tablet 2.5 mg PO DAILY 03/31/23 03/31/23 Unknown History potassium chloride 10 mEq 10 meq PO TID@,03/31/23 03/31/23 03/30/23 History tablet,extended release (Klor-Con) Allergies Allergy/AdvReac Type Severity Reaction Status Date / Time Penicillins Allergy Unknown Verified 03/31/23 08:44 PFSH Acute PFSH: Medical History (Updated 03/31/23 @ 15:15 by Remigio Gagnon MD) Acute dyspnea Acute metabolic encephalopathy Alcoholism Ascites COPD (chronic obstructive pulmonary disease) COPD exacerbation Cough Diarrhea Fever Generalized weakness Hyperkalemia Hyponatremia Hypothyroid Hypoxia Influenzal pneumonia Liver cirrhosis Lumbar radiculopathy, chronic Respiratory failure with hypoxia and hypercapnia Shortness of breath Surgical History S/P laminectomy with spinal fusion Family History Father CAD (coronary artery disease) Social History Smoking and tobacco status: current every day smoker Alcohol intake: current Alcohol intake frequency: 3 or more drinks per day Substance/Drug Use: current Vitals/I&O/Wt Last Vital Signs Pulse 84 03/31/23 10:59 Resp 16 03/31/23 10:59 BP 138/86 03/31/23 10:59 Pulse Ox 95 03/31/23 10:59 O2 Del Method Nasal Cannula 03/31/23 10:59 O2 Flow Rate 2 03/31/23 10:59 Weight last 48 hrs Weight 118.388 kg Physical Exam Narrative: General exam is a conversant white male, reporting some leg pain and swelling HEENT: Atraumatic normocephalic. Oropharynx clear Neck is supple no lymphadenopathy or thyromegaly Cardiovascular regular rate and rhythm, no murmur Lungs clear no wheezing or crackles Abdomen somewhat protuberant. I think it is unlikely there is a fluid wave. Nontender. exam was deferred Extremities show 3+ edema bilaterally. No cyanosis or clubbing. Faint erythema likely secondary to edema. Skin see findings above Neuro no focal deficits Data 03/31/23 07:36 03/31/23 12:50 Other Labs: MCV is 77 INR 1.49 ABG demonstrates a pH 7.7, PCO2 38, PO2 83 on 2 L Magnesium 1.1 Calcium 7.9 Bilirubin 2.3, AST 59. Alk phos and ALT are normal Albumin 2.4 Lipase 111 Urinalysis with urobilinogen otherwise negative Duplex no evidence of DVT on either side. Enlarged groin lymph node noted Chest x-ray which I reviewed demonstrates no obvious infiltrate EKG demonstrates sinus rhythm, left axis deviation nonspecific ST-T wave changes Previous echocardiogram 12/06/2021 demonstrated normal ejection fraction. A&P Assessment and plan (1) Hyponatremia: Patient presents with significant hyponatremia, associated with fluid overload. This is secondary to his underlying liver disease, cirrhosis. As renal function is currently normal, will initiate diuresis with Lasix 40 mg IV every 12 hours. Will fluid restrict to 800 cc Repeat sodium around 9 PM Currently he does not appear symptomatic with a sodium of 118 (2) Anasarca: Significant anasarca, which appears to be secondary to his liver disease. Albumin is low at 2.3, but he has significant proteinuria. (3) Hypokalemia: Continue to supplement heavily IV and p.o. (4) Hypomagnesemia: Supplement IV (5) Anemia: Repeat CBC tomorrow. I suspect he may have esophageal varices, although no clinical evidence of bleeding now. With his alcoholism his MCV used to run above 100, and is now 77. He will need outpatient evaluation by GI, and likely screening endoscopy. (6) Liver cirrhosis: Patient has history of cirrhosis. His INR is elevated. His platelets are slightly higher today, but on previous readings are always low. He has elevated bilirubin, and AST. Repeat liver test tomorrow. Will need outpatient evaluation. He reports he used to see hepatology several years ago. Encouraged him to stop drinking. He reports he drinks at least a sixpack a day. (7) Alcoholism: No evidence of withdrawal currently, but certainly at risk for it. Initiate CIWA protocol Plan Multiple other medical problems as outlined in past medical history Full code SCDs for DVT prophylaxis. Anticoagulation contraindicated secondary to anemia in this patient with elevated INR and liver disease Attestations Medical Necessity Statement*: Will need greater than 2 midnight stay for evaluation and treatment of hypo natremia, decompensated liver disease, anasarca Critical Care Time: The high probability of a clinically significant, sudden or life threatening d eterioration of the patient's [electrolytes, hepatic] system(s) required my full and direct attention, intervention and personal management. The critical care time is as shown. This time is in addition to time spent performing any reported procedures but includes the following: [x] Data and vital sign review and interpretation [x] Patient assessment, examination and intervention [x] Documentation [x] Medication orders and management Critical Care Time (min): 57 Coding Level of Care Code Critical Care >/= 30 minutes Critical care time (in minutes): 57 The high probability of a clinically significant, sudden or life threatening deterioration, as referenced in this documentation, required my full and direct attention, intervention and personal management. The critical care time shown is in addition to time spent performing any reported separately billable procedures and includes the following: [x] Data and vital sign review and interpretation [x ] Patient assessment, examination and intervention [x] Medication orders and management [x] Patient/Family updates as able [x] Care Coordination and Documentation. Diagnoses Hyponatremia E87.1 Anasarca R60.1 Hypokalemia E87.6 Hypomagnesemia E83.42 Anemia D64.9 Liver cirrhosis K74.60 Alcoholism F10.20
[2023-03-31 14:11] LABS: Anion Gap 15.7 (5-19); Blood Urea Nitrogen 7 mg/dL (6-20); Calcium 7.9 mg/dL (8.5-10.5); Carbon Dioxide 35 mmol/L (22-29); Chloride 70 mmol/L (98-107); Glomerular Filtration Rate 116.7 mL/min (90-130); Glucose 231 mg/dL (65-115); Osmolality Calculated 251 mOsm/kg (285-295)
[2023-03-31 14:15] LABS: Potassium 2.7 mmol/L (3.5-5.1); Sodium 118 mmol/L (136-145)
[2023-03-31] MEDS: lidocaine 1% INJ 10 mL (per mL) 5 ML IV (14:25)
[2023-03-31] MEDS: magnesium sulfate premix 2 GM/50 ML PIGGYBACK IV ×2 (14:25→23:32)
[2023-03-31] MEDS: thiamine 100 mg Tablet PO (16:13)
[2023-03-31] MEDS: potassium chloride ER 20 mEq Tablet 40 MEQ PO (16:13)
[2023-03-31] MEDS: pantoprazole DR 40 mg Tablet PO (16:13)
[2023-03-31 16:26] LABS: Thyroid Stimulating Hormone 3.79 uIU/mL (0.27-4.20)
--- NOTE | 2023-03-31 18:50 | PC.NURSE ---
Pt was transferred to ICU at around 1130 via bed on room air. Pt was able to answer all questions and transfer self to bed. Belongings included medication, shoes, pants, cigarets, wallet and $350. This nurse asked that patient is I could count the money to verify amount and patient refused.
[2023-03-31 21:11] LABS: Anion Gap 14.7 (5-19); Blood Urea Nitrogen 12 mg/dL (6-20); Calcium 7.6 mg/dL (8.5-10.5); Carbon Dioxide 35 mmol/L (22-29); Chloride 71 mmol/L (98-107); Glomerular Filtration Rate 77.3 mL/min (90-130); Glucose 469 mg/dL (65-115); Osmolality Calculated 266 mOsm/kg (285-295)
[2023-03-31 21:34] LABS: Potassium 2.7 mmol/L (3.5-5.1); Sodium 118 mmol/L (136-145)
--- NOTE | 2023-03-31 21:48 | P.PNCC_ITS ---
Critical Care Event Note The high probability of a clinically significant, sudden or life threatening deterioration of the patient's [renal, electrolyte] system(s) required my full and direct attention, intervention and personal management. The critical care time is as shown. This time is in addition to time spent performing any reported procedures but includes the following: [x] Data and vital sign review and interpretation [x] Patient assessment, examination and intervention [x] Documentation [x] Medication orders and management Coding Level of Care Code Acute Code for [facility] Shaina
[2023-03-31] MEDS: acetaZOLAMIDE 250 mg Tablet 500 MG PO (21:52)
[2023-03-31] MEDS: trazodone 150 mg Tablet PO (21:52)
[2023-03-31] MEDS: potassium chloride ER 20 mEq Tablet 80 MEQ PO (22:01)
[2023-03-31 22:03] LABS: Glucose Point of Care 473 mg/dL (70-110)
[2023-03-31 22:03] LABS: Magnesium 1.5 mg/dL (1.7-2.3); Phosphorus 2.6 mg/dL (2.5-4.5)
[2023-03-31] MEDS: insulin lispro 100 unit/1 mL SUBCUT (22:40)
[2023-04-01] VITALS (36 sets, daily range): BP systolic 86–142; BP diastolic 45–78; PULSE 68–91; RESP 13–25; TEMP 36.2–36.6; O2SAT 90–100
--- NOTE | 2023-04-01 00:24 | PC.NURSE ---
Patient saturations remained in low 80s while sleeping. Placed on 2L NC with proper saturations >90.
[2023-04-01 01:00] LABS: Hemoglobin 8.5 g/dL (11.7-16.6); Lymphocytes # 0.8 10^3/uL (0.8-4.8); Lymphocytes % 11.4 %; Mean Corpuscular HGB Conc 31.5 g/dL (30.0-36.0); Mean Corpuscular Hemoglobin 24.8 pg (28.0-34.0); Mean Corpuscular Volume 78.7 fl (80-94); Mean Platelet Volume 9.7 fL (7.4-10.4); Monocytes % 14.7 %; Neutrophils # 5.13 10^3/uL (1.8-7.7); Neutrophils % 73.5 %; Nucleated Red Blood Cells % 0 %; Platelet Count 176 10^3/cmm (130-400); Red Blood Count 3.43 10^6/uL (4.1-5.3)
[2023-04-01 01:17] LABS: Anion Gap 10.4 (5-19); Blood Urea Nitrogen 13 mg/dL (6-20); Calcium 7.6 mg/dL (8.5-10.5); Carbon Dioxide 38 mmol/L (22-29); Chloride 74 mmol/L (98-107); Glucose 365 mg/dL (65-115); Osmolality Calculated 265 mOsm/kg (285-295); Phosphorus 2.6 mg/dL (2.5-4.5); Sodium 120 mmol/L (136-145)
[2023-04-01 01:21] LABS: Potassium 2.4 mmol/L (3.5-5.1)
[2023-04-01] MEDS: potassium chloride ER 20 mEq Tablet 80 MEQ PO (01:41)
[2023-04-01 04:48] LABS: Alanine Aminotransferase 16 U/L (0-41); Albumin Level 2.3 g/dL (3.5-5.2); Alkaline Phosphatase 123 U/L (40-130); Anion Gap 9.7 (5-19); Aspartate Amino Transferase 49 U/L (0-40); Blood Urea Nitrogen 13 mg/dL (6-20); Calcium 7.5 mg/dL (8.5-10.5); Carbon Dioxide 39 mmol/L (22-29); Chloride 77 mmol/L (98-107); Globulin 5.7 g/dL (1.3-4.6); Glucose 275 mg/dL (65-115); Osmolality Calculated 266 mOsm/kg (285-295); Sodium 123 mmol/L (136-145); Total Bilirubin 1.9 mg/dL (0.15-1.2)
[2023-04-01 04:50] LABS: Potassium 2.7 mmol/L (3.5-5.1)
[2023-04-01 05:27] LABS: ABG PCO2 55.9 mmHg (35-45); ABG PH Result 7.49 (7.35-7.45); Alveolar-Arterial Oxygen Gradi 1.4 mmHg (5-10); Arterial Blood Gas Hematocrit 33.3 % (42-52); Base Excess ABG 16.5 mmol/L (-2.0-2.0); Blood Gas Allen Test Pos; Blood Gas Operator Identificat JB; Blood Gas Sample Site Radial, right; Blood Gas Sample Type Arterial; Carboxyhemoglobin 1.8 %THgb (0.4-20.1); HCO3 ABG 42.3 mmol/L (22-26); HGB O2 Sat 92.2 % (95-100); Methemoglobin 0.2 % (0.4-1.5); Oxygen Device NC; PO2 ABG 71.4 mmHg (80.0-100.0); Potassium Level - ABG 2.7 mmol/L (3.5-5.0); Total Hemoglobin 10.9 g/dL (14-18)
[2023-04-01] MEDS: levothyroxine 50 mcg Tablet PO (06:23)
[2023-04-01] MEDS: FUROsemide 10 mg/mL SDV 4mL 40 MG IVP ×2 (06:24→18:27)
[2023-04-01 07:35] LABS: Glucose Point of Care 255 mg/dL (70-110)
[2023-04-01] MEDS: pantoprazole DR 40 mg Tablet PO ×2 (08:01→17:42)
[2023-04-01] MEDS: thiamine 100 mg Tablet PO (08:01)
[2023-04-01] MEDS: folic acid 1 mg Tablet PO (08:01)
[2023-04-01] MEDS: multivitamin therapeutic Tablet 1 TAB PO (08:01)
[2023-04-01] MEDS: insulin lispro 100 unit/1 mL SUBCUT ×4 (08:01→20:49)
--- NOTE | 2023-04-01 09:26 | PM.PN ---
Subjective Subjective: Eliezer reports he feels a little less swollen, less short of breath. Legs still hurt a bit. No chest pain, or nausea. Medications: Reviewed: Yes Vitals/I&O/Wt Last Vital Signs Temp 98.5 F 03/31/23 19:00 Pulse 82 04/01/23 08:00 Resp 15 04/01/23 08:00 BP 123/55 04/01/23 08:00 Pulse Ox 99 04/01/23 08:00 O2 Del Method Nasal Cannula 04/01/23 02:00 O2 Flow Rate 2 04/01/23 02:00 03/31/23 04/01/23 04/01/23 22:59 06:59 14:59 Intake Total 420 / 520 120 / 120 Output Total 1200 / 1200 1750 / 2950 1000 / 1000 Balance -780 / -680 -1750 / -2430 -880 / -880 Weight last 48 hrs Weight 111.584 kg Weight 118.388 kg Physical Exam Narrative: General exam no distress Neck is supple no lymphadenopathy or thyromegaly Cardiovascular regular rate and rhythm, no murmur Lungs clear no wheezing or crackles Abdomen nontender Extremities show 2+ edema bilaterally. No cyanosis or clubbing. Data 04/01/23 00:50 04/01/23 03:40 A&P Assessment and plan (1) Hyponatremia: Patient presents with significant hyponatremia, associated with fluid overload. This is secondary to his underlying liver disease, cirrhosis. Overall 3 L negative. Continue Lasix 40 mg IV every 12 hours Continue fluid restriction of 800 cc Repeat his BMP around 1300 Sodium has improved to 123. Note that adjusted for glucose this is around 126. Sugar did go up significantly after admission. (2) Anasarca: Significant anasarca, which appears to be secondary to his liver disease. Albumin is low at 2.3, but he has significant proteinuria. Continue to diurese (3) Hypokalemia: Continue to supplement heavily IV and p.o. BMP at 1300 (4) Hypomagnesemia: Supplement IV as needed (5) Anemia: Overall stable. I suspect he may have esophageal varices, although no clinical evidence of bleeding now. With his alcoholism his MCV used to run above 100, and is now 77. He will need outpatient evaluation by GI, and likely screening endoscopy. (6) Liver cirrhosis: Patient has history of cirrhosis. His INR is elevated. Borderline low. Bilirubin elevated but stable/improving will need outpatient evaluation. He reports he used to see hepatology several years ago. Encouraged him to stop drinking. He reports he drinks at least a sixpack a day. (7) Alcoholism: No evidence of withdrawal currently, but certainly at risk for it. Continue CIDE protocol Plan Hyperglycemia. Check hemoglobin A1c. Multiple other medical problems as outlined in past medical history. Sliding scale insulin. Changed to consistent carb diet. Full code SCDs for DVT prophylaxis. Anticoagulation contraindicated secondary to anemia in this patient with elevated INR and liver disease Attestations Medical Necessity Statement*: Continued hospital stay for close monitoring of electrolytes in this patient with anasarca requiring diuresis Diagnoses Hyponatremia E87.1 Anasarca R60.1 Hypokalemia E87.6 Hypomagnesemia E83.42 Anemia D64.9 Liver cirrhosis K74.60 Alcoholism F10.20 Time Spent (min) 21
[2023-04-01 11:07] LABS: Estmated Average Glucose 131; Hemoglobin A1C 6.2 % (4.0-6.0)
[2023-04-01 12:16] LABS: Glucose Point of Care 342 mg/dL (70-110)
[2023-04-01] MEDS: potassium chloride premix 100 ML 25 MEQ IV (12:17)
[2023-04-01] MEDS: ipratropium-albuterol 3 mL Neb INHALATION ×2 (13:39→20:30)
[2023-04-01 13:57] LABS: Blood Urea Nitrogen 15 mg/dL (6-20); Calcium 7.8 mg/dL (8.5-10.5); Carbon Dioxide 32 mmol/L (22-29); Chloride 78 mmol/L (98-107); Glucose 331 mg/dL (65-115); Magnesium 1.9 mg/dL (1.7-2.3); Osmolality Calculated 268 mOsm/kg (285-295); Sodium 122 mmol/L (136-145)
[2023-04-01 14:07] LABS: Anion Gap 14.9 (5-19); Potassium 2.9 mmol/L (3.5-5.1)
[2023-04-01] MEDS: potassium chloride ER 20 mEq Tablet 40 MEQ PO (15:44)
[2023-04-01] MEDS: lidocaine 1% 5 ML in potassium chloride premix 100 ML 26.25 ML IV ×2 (16:54→20:49)
[2023-04-01 16:59] LABS: Glucose Point of Care 337 mg/dL (70-110)
[2023-04-01] MEDS: budesonide 0.5 mg/2 mL Neb INHALATION (20:30)
[2023-04-01 20:48] LABS: Glucose Point of Care 302 mg/dL (70-110)
[2023-04-01] MEDS: trazodone 150 mg Tablet PO (20:49)
[2023-04-01] MEDS: LORazepam 2 mg Tablet PO (20:53)
[2023-04-02] VITALS (13 sets, daily range): BP systolic 105–131; BP diastolic 56–78; PULSE 73–87; RESP 16–22; TEMP 36.4–36.8; O2SAT 93–99
[2023-04-02 04:41] LABS: Basophils % 0.1 %; Eosinophils % 0.1 %; Hematocrit 27.5 % (42.0-52.0); Hemoglobin 8.4 g/dL (11.7-16.6); Lymphocytes # 1.4 10^3/uL (0.8-4.8); Lymphocytes % 17.8 %; Mean Corpuscular HGB Conc 30.5 g/dL (30.0-36.0); Mean Corpuscular Hemoglobin 25.1 pg (28.0-34.0); Mean Corpuscular Volume 82.1 fl (80-94); Mean Platelet Volume 9.2 fL (7.4-10.4); Monocytes # 0.7 10^3/uL (0.2-0.9); Monocytes % 8.4 %; Neutrophils # 5.73 10^3/uL (1.8-7.7); Neutrophils % 73.2 %; Nucleated Red Blood Cells % 0 %; Platelet Count 186 10^3/cmm (130-400); Red Blood Count 3.35 10^6/uL (4.1-5.3); Red Cell Distribution Width 21.5 % (12.1-15.1); White Blood Count 7.8 10^3/uL (4.0-10.0)
[2023-04-02 05:09] LABS: Alanine Aminotransferase 18 U/L (0-41); Albumin Level 2.4 g/dL (3.5-5.2); Alkaline Phosphatase 125 U/L (40-130); Anion Gap 10.8 (5-19); Aspartate Amino Transferase 44 U/L (0-40); Blood Urea Nitrogen 18 mg/dL (6-20); Calcium 7.7 mg/dL (8.5-10.5); Carbon Dioxide 34 mmol/L (22-29); Chloride 86 mmol/L (98-107); Globulin 5.6 g/dL (1.3-4.6); Glucose 202 mg/dL (65-115); Magnesium 1.9 mg/dL (1.7-2.3); Osmolality Calculated 274 mOsm/kg (285-295); Sodium 128 mmol/L (136-145); Total Bilirubin 1.7 mg/dL (0.15-1.2)
[2023-04-02 05:12] LABS: Potassium 2.8 mmol/L (3.5-5.1)
--- NOTE | 2023-04-02 05:20 | PC.NURSE ---
Informed Dr Alarcon of critical KCl of 2.8 this morning. Received telephone order to hold this am dose of Lasix and to give Potassium 40mEq PO onetime this morning. RBVO
[2023-04-02] MEDS: potassium chloride ER 20 mEq Tablet 40 MEQ PO (05:26)
[2023-04-02] MEDS: levothyroxine 50 mcg Tablet PO (05:26)
[2023-04-02 06:30] LABS: Glucose Point of Care 238 mg/dL (70-110)
[2023-04-02] MEDS: thiamine 100 mg Tablet PO (08:18)
[2023-04-02] MEDS: pantoprazole DR 40 mg Tablet PO ×2 (08:18→17:33)
[2023-04-02] MEDS: multivitamin therapeutic Tablet 1 TAB PO (08:18)
[2023-04-02] MEDS: folic acid 1 mg Tablet PO (08:18)
[2023-04-02] MEDS: insulin lispro 100 unit/1 mL SUBCUT ×4 (08:19→21:38)
[2023-04-02] MEDS: lidocaine 1% 5 ML in potassium chloride premix 100 ML 26.25 ML IV ×2 (09:02→13:37)
--- NOTE | 2023-04-02 10:05 | PM.PN ---
Subjective Subjective: Extremely low potassium Patient is eating breakfast Fatigue and lethargy however no active complaints We might briefly discharge him by tomorrow morning No severe signs of withdrawal Magnesium 1.9 Afebrile Venous Doppler no DVT Vitals/I&O/Wt Last Vital Signs Temp 97.8 F 04/02/23 08:51 Pulse 83 04/02/23 08:09 Resp 16 04/02/23 08:09 BP 131/78 04/02/23 08:00 Pulse Ox 94 04/02/23 08:09 O2 Del Method Room Air 04/02/23 08:09 O2 Flow Rate 2 04/01/23 02:00 04/01/23 04/02/23 04/02/23 22:59 06:59 14:59 Intake Total 942.813 / 1282.813 405 / 1687.813 120 / 120 Output Total 400 / 1400 300 / 1700 Balance 542.813 / -117.187 105 / -12.187 120 / 120 Weight last 48 hrs Weight 113.353 kg Weight 113.353 kg Weight 111.584 kg Physical Exam Narrative: Awake and alert Eating breakfast Currently on room air GCS 15 nonfocal neuro exam pleasant and cooperative Does not look fluid overloaded S1, S2 Abdomen soft Data 04/02/23 04:21 04/02/23 04:21 A&P Assessment and plan (1) Alcoholism: (2) Liver cirrhosis: (3) Hypomagnesemia: (4) Hypokalemia: (5) Anasarca: (6) Anemia: (7) COPD (chronic obstructive pulmonary disease): (8) Hyponatremia: Plan Anemia of chronic disease: Stable Liver cirrhosis related to alcohol with anasarca Hold Lasix today Add salt tablets No active signs of withdrawal phenobarbital versus Ativan can be used if he becomes symptomatic His last alcoholic drink was a day before his admission My plan is to discharge him by tomorrow if electrolytes are normal Patient lives with his family Patient is motivated to quit alcohol Magnesium: Repleted Give extra potassium IV 40 mEq this morning COPD without acute exacerbation doing well on room air Hypervolemic hyponatremia: Add salt tablets Attestations Medical Necessity Statement*: Discharge tomorrow Diagnoses Alcoholism F10.20 Liver cirrhosis K74.60 Hypomagnesemia E83.42 Hypokalemia E87.6 Anasarca R60.1 Anemia D64.9 COPD (chronic obstructive pulmonary disease) J44.9 Hyponatremia E87.1
[2023-04-02 11:08] LABS: Glucose Point of Care 233 mg/dL (70-110)
[2023-04-02] MEDS: sodium chloride 1 gm Tablet PO ×2 (11:44→17:33)
[2023-04-02 16:41] LABS: Glucose Point of Care 222 mg/dL (70-110)
[2023-04-02] MEDS: ipratropium-albuterol 3 mL Neb INHALATION (20:20)
[2023-04-02] MEDS: budesonide 0.5 mg/2 mL Neb INHALATION (20:20)
[2023-04-02 20:41] LABS: Glucose Point of Care 246 mg/dL (70-110)
[2023-04-02] MEDS: LORazepam 2 mg Tablet PO (21:35)
[2023-04-02] MEDS: trazodone 150 mg Tablet PO (21:35)
[2023-04-03] VITALS: BP 138/65; PULSE 80; RESP 18; TEMP 37.3; O2SAT 91
[2023-04-03 02:45] LABS: Basophils % 0.4 %; Eosinophils % 0.8 %; Hematocrit 28.2 % (42.0-52.0); Hemoglobin 8.6 g/dL (11.7-16.6); Lymphocytes # 1.4 10^3/uL (0.8-4.8); Lymphocytes % 27.1 %; Mean Corpuscular HGB Conc 30.5 g/dL (30.0-36.0); Mean Corpuscular Hemoglobin 25.5 pg (28.0-34.0); Mean Corpuscular Volume 83.7 fl (80-94); Mean Platelet Volume 9.1 fL (7.4-10.4); Monocytes # 0.6 10^3/uL (0.2-0.9); Monocytes % 12.4 %; Neutrophils # 3.05 10^3/uL (1.8-7.7); Neutrophils % 59.1 %; Nucleated Red Blood Cells % 0 %; Platelet Count 190 10^3/cmm (130-400); Red Blood Count 3.37 10^6/uL (4.1-5.3); Red Cell Distribution Width 21.7 % (12.1-15.1); White Blood Count 5.2 10^3/uL (4.0-10.0)
[2023-04-03 03:09] LABS: Anion Gap 10.2 (5-19); Blood Urea Nitrogen 13 mg/dL (6-20); Calcium 8.2 mg/dL (8.5-10.5); Carbon Dioxide 32 mmol/L (22-29); Chloride 92 mmol/L (98-107); Glomerular Filtration Rate 116.7 mL/min (90-130); Glucose 183 mg/dL (65-115); Osmolality Calculated 277 mOsm/kg (285-295); Potassium 3.2 mmol/L (3.5-5.1); Sodium 131 mmol/L (136-145)
[2023-04-03 04:00] VITALS: BP 139/71; PULSE 73; RESP 23; TEMP 36.9; O2SAT 95
[2023-04-03] MEDS: levothyroxine 50 mcg Tablet PO (04:46)
[2023-04-03] MEDS: potassium chloride ER 20 mEq Tablet 40 MEQ PO (04:46)
[2023-04-03 05:28] VITALS: PULSE 77
[2023-04-03 06:30] LABS: Glucose Point of Care 186 mg/dL (70-110)
--- NOTE | 2023-04-03 06:43 | P.DS_ITS ---
Discharge Providers Date of Admission: 03/31/23 12:32 Date of Discharge: April 03, 2023 Attending Provider at Admission: Remigio Gagnon MD Attending Provider at Discharge: Lex Victoria MD Primary Care Provider: Elizabeth Gagnon MD Diagnoses at Discharge Discharge Diagnosis (1) Alcoholism: Status: Inactive (2) Liver cirrhosis: Status: Inactive (3) Hypomagnesemia: Status: Inactive (4) Hypokalemia: Status: Inactive (5) Anasarca: Status: Inactive (6) Anemia: Status: Inactive (7) COPD (chronic obstructive pulmonary disease): Status: Inactive (8) Hyponatremia: Status: Inactive Reason for Visit Reason for Visit: Pain and Swelling Hospital Course Hospital Course 57-year-old male who presented to hospital for worsening of lower extremity sw elling, patient was diuresed aggressively during hospitalization, his electrolytes were replenished patient was hyponatremic hypokalemic, his hyponatremia was related to hypervolemia which improved with IV diuresis and use of salt tablets, he was also put on fluid restriction, patient never showed any signs of alcohol withdrawal during hospitalization, hemoglobin remained stable around 8 he did not requiring blood transfusion, total net fluid balance -1500 at the time of discharge, patient will be discharged home with counseling to use thiamine, folic acid, Lasix with potassium supplementation, patient has preserved ejection fraction with diastolic dysfunction likely will need sleep study outpatient Physical Exam Narrative: Signs of fluid load improving Currently on room air Hemodynamic stable Alcohol withdrawal GCS 15 S1, S2 Discharge Data Studies Completed and Pending Completed Studies During Hospitalization Category Date Time Status XR chest 1V portable [id number] Stat Exams 03/31/23 07:27 Completed US venous duplex lower extremity bilat [CV venous Ultrasound 03/31/23 07:41 [place] [id number]] Stat Radiology Impressions Chest X-Ray 03/31/23 07:27 IMPRESSION: Unremarkable frontal portable chest x-ray. Laboratory Results WBC 5.2 10^3/uL (4.0-10.0) 04/03/23 01:54 RBC 3.37 10^6/uL (4.1-5.3) L 04/03/23 01:54 Hgb 8.6 g/dL (11.7-16.6) L 04/03/23 01:54 Hct 28.2 % (42.0-52.0) L 04/03/23 01:54 MCV 83.7 fl (80-94) 04/03/23 01:54 MCH 25.5 pg (28.0-34.0) L 04/03/23 01:54 MCHC 30.5 g/dL (30.0-36.0) 04/03/23 01:54 RDW 21.7 % (12.1-15.1) H 04/03/23 01:54 Plt Count 190 10^3/cmm (130-400) 04/03/23 01:54 MPV 9.1 fL (7.4-10.4) 04/03/23 01:54 Neut % (Auto) 59.1 % 04/03/23 01:54 Lymph % (Auto) 27.1 % 04/03/23 01:54 Yates % (Auto) 12.4 % 04/03/23 01:54 Eos % (Auto) 0.8 % 04/03/23 01:54 Baso % (Auto) 0.4 % 04/03/23 01:54 Neut # (Auto) 3.05 10^3/uL (1.8-7.7) 04/03/23 01:54 Lymph # (Auto) 1.4 10^3/uL (0.8-4.8) 04/03/23 01:54 Yates # (Auto) 0.6 10^3/uL (0.2-0.9) 04/03/23 01:54 Eos # (Auto) 0.0 10^3/uL (0.0-0.8) 04/03/23 01:54 Baso # (Auto) 0.0 10^3/uL (0.0-0.1) 04/03/23 01:54 Nucleated RBC % (auto) 0 % 04/03/23 01:54 Nucleated RBCs # 0.0 /100WBC 04/03/23 01:54 PT 18.50 SECONDS (12.1-14.9) H 03/31/23 07:36 INR 1.49 (0.8-1.2) H 03/31/23 07:36 APTT 45.3 SECONDS (23.9-36.7) H 03/31/23 07:36 Specimen Type Arterial 04/01/23 05:00 Sample Site Radial, right 04/01/23 05:00 ABG pH 7.49 (7.35-7.45) H 04/01/23 05:00 ABG pCO2 55.9 mmHg (35-45) H 04/01/23 05:00 ABG pO2 71.4 mmHg (80.0-100.0) L 04/01/23 05:00 ABG HCO3 42.3 mmol/L (22-26) H 04/01/23 05:00 ABG O2 Saturation 94.0 04/01/23 05:00 ABG Base Excess 16.5 mmol/L (-2.0-2.0) H 04/01/23 05:00 Ward Test Pos 04/01/23 05:00 A-a O2 Gradient 1.4 mmHg (5-10) L 04/01/23 05:00 Hematocrit 33.3 % (42-52) L 04/01/23 05:00 Hgb O2 Saturation 92.2 % (95-100) L 04/01/23 05:00 Carboxyhemoglobin 1.8 %THgb (0.4-20.1) 04/01/23 05:00 Methemoglobin 0.2 % (0.4-1.5) L 04/01/23 05:00 Total Hemoglobin 10.9 g/dL (14-18) L 04/01/23 05:00 Sodium 124.0 mmol/L (131-143) L 04/01/23 05:00 Potassium 2.7 mmol/L (3.5-5.0) L 04/01/23 05:00 Glucose 243.0 mg/dL (70-115) H 04/01/23 05:00 Ionized Calcium 1.0 mmol/L (1.1-1.4) L 04/01/23 05:00 O2 Delivery Device Nc 04/01/23 05:00 O2 Liters/Min 2.0 % 04/01/23 05:00 Residential Nurse ID Bryson 04/01/23 05:00 Sodium 131 mmol/L (136-145) L 04/03/23 01:54 Potassium 3.2 mmol/L (3.5-5.1) L 04/03/23 01:54 Chloride 92 mmol/L (98-107) L 04/03/23 01:54 Carbon Dioxide 32 mmol/L (22-29) H 04/03/23 01:54 Anion Gap 10.2 (5-19) 04/03/23 01:54 BUN 13 mg/dL (6-20) 04/03/23 01:54 Creatinine 0.7 mg/dL (0.7-1.2) 04/03/23 01:54 GFR Calculation 116.7 mL/min (90-130) 04/03/23 01:54 Glucose 183 mg/dL (65-115) H 04/03/23 01:54 POC Glucose 186 mg/dL (70-110) H 04/03/23 06:20 Estimat Average Glucose 131 04/01/23 00:50 Hemoglobin A1c 6.2 % (4.0-6.0) H 04/01/23 00:50 Calculated Osmolality 277 mOsm/kg (285-295) L 04/03/23 01:54 Calcium 8.2 mg/dL (8.5-10.5) L 04/03/23 01:54 Phosphorus 2.6 mg/dL (2.5-4.5) 04/01/23 00:50 Magnesium 1.9 mg/dL (1.7-2.3) 04/02/23 04:21 Total Bilirubin 1.7 mg/dL (0.15-1.2) H 04/02/23 04:21 AST 44 U/L (0-40) H 04/02/23 04:21 ALT 18 U/L (0-41) 04/02/23 04:21 Alkaline Phosphatase 125 U/L (40-130) 04/02/23 04:21 NT-Pro-B Natriuret Pep 110 pg/mL (0-125) 03/31/23 07:36 Total Protein 8.0 g/dL (6.6-8.7) 04/02/23 04:21 Albumin 2.4 g/dL (3.5-5.2) L 04/02/23 04:21 Globulin 5.6 g/dL (1.3-4.6) H 04/02/23 04:21 Lipase 111 U/L (13-60) H 03/31/23 07:36 TSH 3.79 uIU/mL (0.27-4.20) 03/31/23 07:36 Urine Color Dark yellow (Yellow) 03/31/23 08:48 Urine Appearance Clear (CLEAR) 03/31/23 08:48 Urine pH 8 (5-7) H 03/31/23 08:48 Ur Specific [place] 1.015 (1.005-1.030) 03/31/23 08:48 Urine Protein Neg (Negative) 03/31/23 08:48 Urine Glucose (UA) Norm (Normal) 03/31/23 08:48 Urine Ketones Negative (Negative) 03/31/23 08:48 Urine Blood Neg (Negative) 03/31/23 08:48 Urine Nitrate Negative (Negative) 03/31/23 08:48 Urine Bilirubin Neg (Negative) 03/31/23 08:48 Prot Sulfosalicylic Acd Negative (Negative) 03/31/23 08:48 Urine Urobilinogen 4 mg/dL (Negative) H 03/31/23 08:48 Ur Leukocyte Esterase Negative (Negative) 03/31/23 08:48 Vitals Last Vital Signs Temp 98.4 F 04/03/23 04:00 Pulse 77 04/03/23 05:28 Resp 23 H 04/03/23 04:00 BP 139/71 04/03/23 04:00 Pulse Ox 95 04/03/23 04:00 O2 Del Method Nasal Cannula 04/03/23 04:00 O2 Flow Rate 2 04/01/23 02:00 Discharge Plan Discharge Patient Disposition: Home Condition: Stable Prescriptions: New folic acid 1 mg Tablet 1 mg PO DAILY Qty: 60 0RF Vitamin B-1 (mononitrate) 100 mg Tablet 100 mg PO DAILY Qty: 60 0RF metformin 500 mg tablet 500 mg PO DAILY Qty: 60 0RF spironolactone 100 mg tablet 100 mg PO DAILY Qty: 90 2RF Continued levothyroxine [Euthyrox] 50 mcg tablet 50 mcg PO QAM pantoprazole 40 mg tablet,delayed release (DR/EC) 40 mg PO BID lidocaine 5 % adhesive patch,medicated See Rx Instructions .ROUTE .COMPLEX Rx Instructions: 1-3 patches transdermally as directed ON FOR 12H OFF FOR 12 HR as needed trazodone 50 mg Tablet 150 mg PO BEDTIME Changed Klor-Con 10 10 mEq tablet extended release 10 meq PO BID Qty: 60 2RF furosemide 80 mg tablet 40 mg PO DAILY Qty: 30 2RF Discontinued metolazone 2.5 mg tablet 2.5 mg PO DAILY Discharge Orders: Discharge Order (Routine); Ordered 04/03/23 Ordered By: Lex Victoria Referrals: Elizabeth Gagnon MD [Primary Care Provider] - 2 weeks (Please call Dr. Gagnon's Office on Wednesday at [phone] to schedule a follow up appointment for 2 weeks. Thank you.) Romi Beatty MD [Referring] - 2 weeks Patient Instructions: Furosemide (By mouth) (Lasix), Potassium Chloride (By mouth) (K-Dur, K-Alysa, K-Tab, Steve Mur), Thiamine (By mouth) ([facility] Vitamin B1, Nature's..., Folic Acid (By mouth) (FA-8, [place], Folacin- 800, Methylfolate), Metformin (By mouth) (Glucophage, Glucophage XR, Fortamet,..., Cirrhosis of the Liver (ED), Hypokalemia (DC), COPD (Chronic Obstructive Pulmonary Disease) (DC), Opioid Safety Discharge Attestations Time Spent in Discharge Care*: greater than 30 min Quality Metrics Clinical Quality Measures [ No reported AMI, CVA or VTE this stay] Coding Level of Care Code Acute Code for Chg Fwd Diagnoses Alcoholism F10.20 Liver cirrhosis K74.60 Hypomagnesemia E83.42 Hypokalemia E87.6 Anasarca R60.1 Anemia D64.9 COPD (chronic obstructive pulmonary disease) J44.9 Hyponatremia E87.1
[2023-04-03 07:40] VITALS: BP 144/79; PULSE 74; RESP 17; TEMP 36.8; O2SAT 94
[2023-04-03] MEDS: multivitamin therapeutic Tablet 1 TAB PO (08:31)
[2023-04-03] MEDS: thiamine 100 mg Tablet PO (08:31)
[2023-04-03] MEDS: folic acid 1 mg Tablet PO (08:31)
[2023-04-03] MEDS: pantoprazole DR 40 mg Tablet PO (08:31)
[2023-04-03] MEDS: insulin lispro 100 unit/1 mL SUBCUT (08:32)
== END 2023-04-03 09:13 | disposition home or self-care (01) | DRG 433 ==
LOC: ER 09:52 → ICU 16:34 → CSU 04-01 13:56
PROVIDERS: Student in an Organized Health Care Education/Training Program; Admitting Provider Internal Medicine; Emergency Provider Family Medicine; PCP Family Medicine; Visit Provider Internal Medicine
DX: K70.30 Alcoholic cirrhosis of liver without ascites (principal); E87.1 Hypo-osmolality and hyponatremia; E87.6 Hypokalemia; E83.42 Hypomagnesemia; F17.210 Nicotine dependence, cigarettes, uncomplicated; E87.70 Fluid overload, unspecified; E03.9 Hypothyroidism, unspecified; R80.9 Proteinuria, unspecified; F10.20 Alcohol dependence, uncomplicated; R73.9 Hyperglycemia, unspecified; J44.9 Chronic obstructive pulmonary disease, unspecified; D63.8 Anemia in other chronic diseases classified elsewhere
CPT/HCPCS: 36415; 36416; 36600; 71045; 80048; 80051; 80053; 81003; 82330; 82805; 82962; 83036; 83690; 83735; 83880; 84100; 84443; 85025; 85610; 85730; 93005; 93970; 94640; 96365; 96366; 96372; 96375; 96376; 99291; 99292; J1100; J1815; J1940; J3475; J3480; J7626

== ENCOUNTER 2023-04-15 08:59 | Outpatient (CLI) | payer OTHER, MEDICARE, SELFPAY ==
--- NOTE | 2023-04-15 09:37 | MR_ITS ---
WS: [id number] MRI LUMBAR SPINE NONCONTRAST HISTORY: DDD/OTHER INTERVERTEBRAL DISC DEGENERATION,LUMBAR REGION COMPARISON: None available. TECHNIQUE: Sagittal and axial multisequence imaging is submitted. 2 mm retrolisthesis of L5. No fractures or marrow edema. Mild disc space narrowing and desiccation. Conus terminates normally at L1-2 disc level. L1-L2: Normal. L2-L3: Mild disc bulging with encroachment upon the subarticular recesses. There is mild disc contact on the traversing L3 nerve roots. Thecal sac is small caliber. Mild central, bilateral subarticular recess and foraminal stenosis. L3-L4: Mild asymmetric disc bulging. Disc bulge is greatest to the left and into the left foramen. Mo derate ligamentum flavum hypertrophy and facet arthritis. There is mild disc contact on the traversin g L4 nerve roots. Left foraminal disc protrusion causing significant effacement of fat. Mild central and bilateral subarticular recess stenosis. Moderate to severe left foraminal stenosis and moderate r ight foraminal stenosis. L4-L5: Diffuse moderate annular disc bulging with a central disc protrusion. Moderate central with bi lateral subarticular recess and bilateral foraminal stenosis. There is disc contacting the L4 and L5 nerve roots bilaterally. L5-S1: Diffuse annular disc bulging with osteophytic ridging. Severe left and moderate right foramina l stenosis. Marked facet joint arthropathy. Fluid in the facet joints. Paravertebral soft tissues are negative. IMPRESSION: 1. Multilevel foraminal and central stenoses due to combination of facet joint arthropathy disc and o steophyte disease. Thecal sac also appears small caliber throughout. 2. L3-4: Moderate to severe left foraminal and moderate right foraminal stenosis with mild central an d bilateral subarticular recess stenosis. 3. L4-5: Moderate central with bilateral subarticular recess and foraminal stenosis. Significant cont act on the L4 and L5 nerve roots bilaterally. 4. L5-S1: Severe left and moderate right foraminal stenosis. 5. L2-3: Mild central, bilateral subarticular recess and foraminal stenosis.
--- NOTE | 2023-04-15 09:37 | MR_ITS ---
WS: [id number] MRI THORACIC SPINE noncontrast. HISTORY: SPONDYLOPATHY/DDD COMPARISON: None available. TECHNIQUE: Multiplanar sequences are performed in sagittal and axial planes. Mild curvature thoracic spine. Small caliber central canal throughout the thoracic spine. Disc spaces are mildly narrowed throughout. No fractures or marrow edema. Seen on the very first image is increa sed T2 signal within the central cervical cord at the C7 level. MRI cervical spine has been performed today also. This area will be evaluated for syrinx on the dedicated MRI of the cervical spine. T1-2: Moderate bilateral facet arthritis and foraminal stenosis. T2-3: Small central disc protrusion and moderate facet arthropathy. Mild foraminal stenosis. T3-4: Mild disc bulging with bilateral facet arthropathy. Moderate right and mild left foraminal sten osis. T4-5: Moderate facet arthropathy. Moderate right and mild left foraminal stenosis. T5-6: Moderate facet arthropathy. Moderate right foraminal stenosis. T6-7: Small central disc protrusion with moderate right and mild left foraminal stenosis. T7-8: Moderate size central disc protrusion with bilateral moderate facet arthropathy and foraminal s tenosis. Mild central stenosis. T8-9: Small central disc protrusion and moderate facet arthropathy. Moderate to severe foraminal sten osis. T9-10: Moderate bilateral facet arthritis and foraminal stenosis. T10-11: Moderate bilateral facet arthritis. Moderate to severe foraminal stenosis. T11-12: Annular disc bulging with effacement of CSF. Moderate bilateral ligamentum and flavum hypertr ophy. Mild central with moderate bilateral foraminal stenosis. Paravertebral soft tissues are otherwise negative. IMPRESSION: 1. Small caliber thecal sac throughout the thoracic spine. 2. Diffuse multilevel facet joint arthritis and foraminal stenoses as above. 3. Most significant stenosis involving the foramina at T8-9. Moderate to severe bilateral foraminal s tenosis. 4. Moderate to severe foraminal stenosis at T10-11 and T11-12. Additional mild central stenosis at T1 1-12. 5. Additional areas of moderate foraminal stenosis as above.
--- NOTE | 2023-04-15 09:37 | MR_ITS ---
WS: [id number] MRI CERVICAL SPINE NONCONTRAST HISTORY: SPONDYLOPATHY COMPARISON: None available. Technique: Multiplanar, multisequence noncontrast imaging of the cervical spine. Less than 2 mm retrolisthesis of C5. No fractures. No marrow edema. Disc space narrowing is moderate at C5-6. No cord syrinx is identified. No inferior displacement of t he cerebellar tonsils. Craniocervical junction, C1 and C2 relationship, odontoid process and soft tissues are normal. C2-C3: Normal. C3-C4: Very mild osteophytic ridging. No high-grade stenosis. C4-C5: Mild annular disc bulging with osteophytic ridging and mild facet arthritis. Mild bilateral fo raminal stenosis. C5-C6: Moderate annular disc bulging with effacement of ventral CSF. Disc and osteophyte disease resu lting in moderate central and bilateral foraminal stenosis. C6-C7: Mild annular disc bulging with a central disc protrusion. Mild bilateral facet arthritis. Mild central and bilateral foraminal stenosis. C7-T1: Mild bilateral foraminal stenosis. No high-grade stenosis centrally. Paraspinal soft tissue are normal. IMPRESSION: 1. Moderate degenerative disc disease and osteophytosis at C5-6. 2. C5-6: Moderate central and bilateral foraminal stenosis. 3. Mild bilateral foraminal stenosis at C4-5 and C7-T1. 4. Very mild central bilateral foraminal stenosis at C6-7.
== END 2023-04-15 09:00 | disposition home or self-care (01) ==
PROVIDERS: PCP Family Medicine; Visit Provider Family Medicine
DX: M48.9 Spondylopathy, unspecified (principal); M51.36 Other intervertebral disc degeneration, lumbar region; M51.34 Other intervertebral disc degeneration, thoracic region; M47.814 Spondylosis without myelopathy or radiculopathy, thoracic region; M48.04 Spinal stenosis, thoracic region; M48.061 Spinal stenosis, lumbar region without neurogenic claudication; M50.322 Other cervical disc degeneration at C5-C6 level
CPT/HCPCS: 72141; 72146; 72148

== ENCOUNTER 2023-09-11 05:48 | Inpatient (IN) | payer MEDICARE, OTHER, SELFPAY ==
[2023-09-11] VITALS (34 sets, daily range): BP systolic 105–177; BP diastolic 54–93; PULSE 0–105; RESP 3–32; TEMP 36.1–37.2; O2SAT 78–100; BMI 45.4
--- NOTE | 2023-09-11 06:27 | XRR_ITS ---
PROCEDURE INFORMATION: Exam: XR Chest Exam date and time: 09/11/2023 6:46 AM Age: 58 years old Clinical indication: Cough and dyspnea; Smoker's cough; Additional info: Dyspnea/cough TECHNIQUE: Imaging protocol: Radiologic exam of the chest. Views: 1 view. COMPARISON: CR XR chest 1V portable [id number] 03/31/2023 7:55 AM FINDINGS: Lungs: Unremarkable. No consolidation. Pleural spaces: Unremarkable. No pleural effusion. No pneumothorax. Heart/Mediastinum: Unremarkable. No cardiomegaly. Bones/joints: Unremarkable. XR/XR chest 1V portable [id number] IMPRESSION: No acute findings.
[2023-09-11 06:57] LABS: Basophils % 0.1 %; Eosinophils % 0.1 %; Lymphocytes # 0.8 10^3/uL (0.8-4.8); Lymphocytes % 8.9 %; Mean Corpuscular HGB Conc 27.4 g/dL (30-55); Mean Corpuscular Hemoglobin 22.2 pg (27-33); Mean Corpuscular Volume 80.9 fl (82-101); Mean Platelet Volume 9.4 fL (7.4-10.4); Monocytes # 0.7 10^3/uL (0.2-0.9); Monocytes % 7.5 %; Neutrophils # 7.42 10^3/uL (1.8-7.7); Neutrophils % 82.6 %; Nucleated Red Blood Cells % 0.2 %; Platelet Count 133 10^3/cmm (157-399); Red Blood Count 2.57 10^6/uL (3.85-5.65); Red Cell Distribution Width 22.4 % (12.1-15.1); White Blood Count 8.98 10^3/uL (3.29-11.43)
[2023-09-11 06:59] LABS: Hematocrit 20.8 % (37-53)
[2023-09-11 07:11] LABS: INR 1.79 (0.8-1.2)
[2023-09-11 07:12] LABS: Ammonia 53 umol/L (16-60); Partial Thromboplastin Time 45.3 SECONDS (23.9-36.7)
--- NOTE | 2023-09-11 07:12 | ECG_ITS ---
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 Measurements Intervals [place] Rate: 87 P: 0 LA: 0 QRS: -57 QRSD: 105 T: 28 QT: 355 QTc: 428 Interpretive Statements SUPRAVENTRICULAR RHYTHM LEFT AXIS DEVIATION [QRS AXIS < -30] LOW QRS VOLTAGE IN EXTREMITY LEADS [QRS DEFLECTION < 0.5 mV IN LIMB LEADS] PATTERN CONSISTENT WITH PULMONARY DISEASE MINIMAL ST DEPRESSION [0.025+ mV ST DEPRESSION] Compared to ECG 03/31/2023 07:47:47 Supraventricular rhythm now present Left-axis deviation now present Low QRS voltage now present Sinus rhythm no longer present Left anterior fascicular block no longer present ST (T wave) deviation still present Electronically Signed On 09-12-2023 16:27:28 BATH ATTENDANT by Baltazar Michelle M.D. [id number]
[2023-09-11 07:14] LABS: Troponin(5th) Baseline 31 ng/L (0-15)
--- NOTE | 2023-09-11 07:17 | ECG_ITS ---
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 Measurements Intervals [place] Rate: 86 P: 69 OK: 213 QRS: -57 QRSD: 107 T: 62 QT: 362 QTc: 435 Interpretive Statements SINUS RHYTHM WITH FIRST DEGREE AV BLOCK LOW QRS VOLTAGE IN EXTREMITY LEADS [QRS DEFLECTION < 0.5 mV IN LIMB LEADS] PATTERN CONSISTENT WITH PULMONARY DISEASE LEFT ANTERIOR FASCICULAR BLOCK [QRS AXIS <= -45, QR IN I, RS IN II] Compared to ECG 09/11/2023 07:12:16 First degree AV block now present Left anterior fascicular block now present Supraventricular rhythm no longer present Left-axis deviation no longer present ST (T wave) deviation no longer present Electronically Signed On 09-13-2023 10:55:20 CONTROL PANEL OPERATOR by Baltazar Michelle M.D. [id number]
[2023-09-11 07:18] LABS: Lactic Sepsis W/Reflex 4.5 mmol/L (0.5-2.2)
--- NOTE | 2023-09-11 07:18 | ED_ITS ---
HPI - General Adult 2 General: Chief complaint: Back Pain/Injury Stated complaint: back pain Time Seen by Provider: 09/11/23 06:11 Source: patient Mode of arrival: EMS History of Present Illness: 58-year-old male presents emergency room complaining of severe weakness states he is unable to walk he is fallen several times denies striking his head there is no loss consciousness. He is awake and alert he is some mild chest pain as well. He has a history of alcoholism with pancreatitis in the past he is also had episodes admission for congestive heart failure. On arrival here he has lost control of his bowels and defecated. He has not had any worsening back pain recently. He just generally complains of being weak he did have an MRI in April of this year did not show any cauda equina or central canal stenosis but had significant foraminal stenosis he previously has had a laminectomy. He continues to drink 7 or more alcoholic drinks per day. Denies any hematochezia or hematemesis. He was seen last night for back pain and discharged. Onset (ago): day(s) Location: abdomen Review of Systems 2 Const: Denies: fever(s) or chills GI: Denies: abdominal pain : Denies: dysuria, urinary frequency or urinary urgency Musc: Denies: neck pain or back pain PFSH ED 2 PFSH: Medical History (Updated 09/11/23 @ 08:28 by Kory Hodgson DO) Congestive heart failure Anemia Ascites Liver cirrhosis Lumbar radiculopathy, chronic Hypothyroid Alcoholism COPD (chronic obstructive pulmonary disease) Surgical History S/P laminectomy with spinal fusion Family History Father CAD (coronary artery disease) Social History (Updated 09/11/23 @ 07:44 by Kory Hodgson DO) Smoking and tobacco/nicotine status: current every day tobacco/nicotine user Alcohol intake: current Alcohol intake frequency: 3 or more drinks per day Alcohol use comment: Patient admits to 7+ drinks per day Substance/Drug Use: current Physical Exam 2 Const: COMMON NORMALS: no acute distress GENERAL APPEARANCE: cooperative and comfortable ORIENTATION/CONSCIOUSNESS: Yes awake, Yes oriented to person, Yes oriented to place and Yes oriented to time HENMT: COMMON NORMALS: normocephalic, atraumatic and hearing grossly normal bilaterally HEAD & SCALP: normocephalic and atraumatic Resp: COMMON NORMALS: normal respiratory effort, No retractions, No use of accessory muscles and clear to auscultation bilaterally AUSCULTATION: clear to auscultation bilaterally Cardio: COMMON NORMALS: regular rate, regular rhythm and No murmurs present (Cardio) RATE: regular rate RHYTHM: regular rhythm GI: COMMON NORMALS: No hepatosplenomegaly present INSPECTION: Yes abdominal distension AUSCULTATION: Yes normoactive bowel sounds PALPATION: Yes Firmness to palpation present (GI), Yes Tenderness to palpation present (GI) (difuse), No Guarding due to palpation present (GI) and Yes No hepatosplenomegaly present RECTAL EXAM: Yes heme positive stool 3+ Extremity: COMMON NORMALS: normal to inspection, capillary refill normal, no clubbing, cyanosis or edema, no calf tenderness and no pedal edema Neuro: SENSORIUM/ORIENTATION: Yes oriented to person, Yes oriented to place and Yes oriented to time Skin: COMMON NORMALS: no rashes or lesions noted GENERAL SKIN EXAM: no rashes or lesions noted Course 2 Vital Signs: Vital signs: Vital Signs Temperature 98.7 F 09/11/23 05:48 Pulse Rate 89 09/11/23 07:39 Respiratory Rate 32 H 09/11/23 07:39 Blood Pressure 147/79 09/11/23 07:39 Pulse Oximetry 96 09/11/23 07:39 Oxygen Delivery Me thod Nasal Cannula 09/11/23 07:39 Oxygen Flow Rate 2 09/11/23 07:39 [facility] - General Adult Medical Decision Making Acute anemia with a markedly positive Hemoccult stool. He also has chronic liver cirrhosis continues to drink. Hyponatremia and thrombocytopenia. CT of the abdomen shows some ascites. His lactate is 4.5 his belly is somewhat distended and moderately tender he has anasarca on his abdominal wall. Discussed with hospitalist will admit. He also some elevated CPK. He does have rhabdomyolysis. I suspect his elevated lactic acid is due to poor nutrition and chronic alcohol use will cover for SBP with ceftriaxone until cultures are resulted. Medical Records I reviewed the patient's medical records. Lab Data I reviewed the patient's lab results. 09/11/23 06:45 09/11/23 06:45 Radiology Impressions Chest X-Ray 09/11/23 06:27 IMPRESSION: No acute findings. Abdomen/Pelvis CT 09/11/23 07:18 IMPRESSION: Likely cirrhosis with effusions, ascites, and trunk edema. Laboratory Results WBC 8.98 10^3/uL (3.29-11.43) 09/11/23 06:45 RBC 2.57 10^6/uL (3.85-5.65) L 09/11/23 06:45 Hgb 5.70 g/dL (11.27-16.99) L* 09/11/23 06:45 Hct 20.8 % (37-53) L* 09/11/23 06:45 MCV 80.9 fl (82-101) L 09/11/23 06:45 MCH 22.2 pg (27-33) L 09/11/23 06:45 MCHC 27.4 g/dL (30-55) L 09/11/23 06:45 RDW 22.4 % (12.1-15.1) H 09/11/23 06:45 Plt Count 133 10^3/cmm (157-399) L 09/11/23 06:45 MPV 9.4 fL (7.4-10.4) 09/11/23 06:45 Neut % (Auto) 82.6 % 09/11/23 06:45 Lymph % (Auto) 8.9 % 09/11/23 06:45 [place] % (Auto) 7.5 % 09/11/23 06:45 Eos % (Auto) 0.1 % 09/11/23 06:45 Baso % (Auto) 0.1 % 09/11/23 06:45 Neut # (Auto) 7.42 10^3/uL (1.8-7.7) 09/11/23 06:45 Lymph # (Auto) 0.8 10^3/uL (0.8-4.8) 09/11/23 06:45 [place] # (Auto) 0.7 10^3/uL (0.2-0.9) 09/11/23 06:45 Eos # (Auto) 0.0 10^3/uL (0.0-0.8) 09/11/23 06:45 Baso # (Auto) 0.0 10^3/uL (0.0-0.1) 09/11/23 06:45 Nucleated RBC % (auto) 0.2 % 09/11/23 06:45 Nucleated RBCs # 0.0 /100WBC 09/11/23 06:45 PT 21.40 SECONDS (12.1-14.9) H 09/11/23 06:45 INR 1.79 (0.8-1.2) H 09/11/23 06:45 APTT 45.3 SECONDS (23.9-36.7) H 09/11/23 06:45 Specimen Type Arterial 09/11/23 07:37 Sample Site Radial, left 09/11/23 07:37 ABG pH 7.40 (7.35-7.45) 09/11/23 07:37 ABG pCO2 46.6 mmHg (35-45) H 09/11/23 07:37 ABG pO2 68.0 mmHg (80.0-100.0) L 09/11/23 07:37 ABG HCO3 28.5 mmol/L (22-26) H 09/11/23 07:37 ABG O2 Saturation 94.5 09/11/23 07:37 ABG Base Excess 3.3 mmol/L (-2.0-2.0) H 09/11/23 07:37 Ward Test Pos 09/11/23 07:37 A-a O2 Gradient 3.0 mmHg (5-10) L 09/11/23 07:37 Hematocrit 17.6 % (42-52) L 09/11/23 07:37 Hgb O2 Saturation 90.5 % (95-100) L 09/11/23 07:37 Carboxyhemoglobin 3.6 %THgb (0.4-20.1) 09/11/23 07:37 Methemoglobin 0.7 % (0.4-1.5) 09/11/23 07:37 Total Hemoglobin 5.7 g/dL (14-18) L 09/11/23 07:37 Sodium 119.0 mmol/L (131-143) L 09/11/23 07:37 Potassium 4.6 mmol/L (3.5-5.0) 09/11/23 07:37 Glucose 134.0 mg/dL (70-115) H 09/11/23 07:37 Ionized Calcium 1.1 mmol/L (1.1-1.4) 09/11/23 07:37 O2 Delivery Device Nc 09/11/23 07:37 O2 Liters/Min 1.5 % 09/11/23 07:37 Second Worker ID Citlali 09/11/23 07:37 Sodium 117 mmol/L (136-145) L* 09/11/23 06:45 Potassium 4.8 mmol/L (3.5-5.1) 09/11/23 06:45 Chloride 84 mmol/L (98-107) L 09/11/23 06:45 Carbon Dioxide 23 mmol/L (22-29) 09/11/23 06:45 Anion Gap 14.8 (5-19) 09/11/23 06:45 BUN 15 mg/dL (6-20) 09/11/23 06:45 Creatinine 0.8 mg/dL (0.7-1.2) 09/11/23 06:45 GFR Calculation 99.6 mL/min (90-130) 09/11/23 06:45 Glucose 147 mg/dL (65-115) H 09/11/23 06:45 Calculated Osmolality 248 mOsm/kg (285-295) L 09/11/23 06:45 Lactic Acid 4.5 mmol/L (0.5-2.2) H* 09/11/23 06:45 Calcium 7.9 mg/dL (8.5-10.5) L 09/11/23 06:45 Magnesium 1.6 mg/dL (1.7-2.3) L 09/11/23 06:45 Total Bilirubin 2.5 mg/dL (0.15-1.2) H 09/11/23 06:45 AST 107 U/L (0-40) H 09/11/23 06:45 ALT 34 U/L (0-41) 09/11/23 06:45 Alkaline Phosphatase 101 U/L (40-130) 09/11/23 06:45 Ammonia 53 umol/L (16-60) 09/11/23 06:45 Creatine Kinase 1457 U/L (39-308) H* 09/11/23 06:45 Troponin T Baseline 31 ng/L (0-15) H 09/11/23 06:45 NT-Pro-B Natriuret Pep 615 pg/mL (0-125) H 09/11/23 06:45 Total Protein 7.8 g/dL (6.6-8.7) 09/11/23 06:45 Albumin 2.5 g/dL (3.5-5.2) L 09/11/23 06:45 Globulin 5.3 g/dL (1.3-4.6) H 09/11/23 06:45 Lipase 58 U/L (13-60) 09/11/23 06:45 Salicylates < 0.3 mg/dL (3-10) L 09/11/23 06:45 Acetaminophen < 5.0 ug/mL (10-30) L 09/11/23 06:45 Ethyl Alcohol 30 mg/dL (0-10) H 09/11/23 06:45 Blood Type O Negative 09/11/23 07:03 Rho(D) Type Negative 09/11/23 07:03 Antibody Screen Negative 09/11/23 07:03 Crossmatch See Detail 09/11/23 07:03 All radiology interpretation(s) finalized by discharge Discharge Plan Discharge Patient Disposition: Admitted As Inpatient Clinical Impression: Anemia, Acute hyponatremia, Acute GI bleeding, Thrombocytopenia, Rhabdomyolysis, Alcoholic cirrhosis of liver, Alcoholism, Hyperbilirubinemia, Acidosis, lactic Condition: Stable Prescriptions: No Action levothyroxine [Euthyrox] 50 mcg tablet 50 mcg PO QAM folic acid 1 mg Tablet 1 mg PO DAILY Qty: 60 0RF Vitamin B-1 (mononitrate) 100 mg Tablet 100 mg PO DAILY Qty: 60 0RF Klor-Con 10 10 mEq tablet extended release 10 meq PO BID Qty: 60 2RF furosemide 80 mg tablet 40 mg PO DAILY Qty: 30 2RF metformin 500 mg tablet 500 mg PO DAILY Qty: 60 0RF spironolactone 100 mg tablet 100 mg PO DAILY Qty: 90 2RF pantoprazole 40 mg tablet,delayed release (DR/EC) 40 mg PO BID lidocaine 5 % adhesive patch,medicated See Rx Instructions .ROUTE .COMPLEX Rx Instructions: 1-3 patches transdermally as directed ON FOR 12H OFF FOR 12 HR as needed trazodone 50 mg Tablet 150 mg PO BEDTIME Referrals: Elizabeth Gagnon MD [Primary Care Provider] - Coding Level of Care Code ED [employer] Trans[employer] Attorney for Chg Shaina
--- NOTE | 2023-09-11 07:18 | CTR_ITS ---
PROCEDURE INFORMATION: Exam: CT Abdomen And Pelvis Without Contrast Exam date and time: 09/11/2023 7:49 AM Age: 58 years old Clinical indication: Other: Low back pain; Additional info: Anemia/upper gi bleed TECHNIQUE: Imaging protocol: Computed tomography of the abdomen and pelvis without contrast. Radiation optimization: All CT scans at this facility use at least one of these dose optimization techniques: automated exposure control; mA and/or kV adjustment per patient size (includes targeted exams where dose is matched to clinical indication); or iterative reconstruction. COMPARISON: CT abdomen pelvis wo con [id number] 02/18/2023 2:31 PM RADIATION DOSE METRICS: Total DLP (mGy-cm): 1353.53 FINDINGS: Pleural spaces: Small bilateral pleural effusions. Liver: The liver has a cirrhotic contour. Gallbladder and bile ducts: Cholelithiasis within a mildly contracted gallbladder. Pancreas: Normal. No ductal dilation. Spleen: 14 cm splenomegaly. Adrenal glands: Normal. No mass. Kidneys and ureters: Normal. No hydronephrosis. Stomach and bowel: Unremarkable. No obstruction. No mucosal thickening. Appendix: No evidence of appendicitis. Intraperitoneal space: There is a small amount of free fluid within the abdomen. Mild haziness of the mesenteric fat, presumably related to the ascites. Vasculature: Unremarkable. No abdominal aortic aneurysm. Lymph nodes: Unremarkable. No enlarged lymph nodes. Urinary bladder: Unremarkable as visualized. Reproductive: Unremarkable as visualized. Bones/joints: Unremarkable. No acute fracture. Soft tissues: Extensive edema of the trunk, anasarca is present. CT/CT abdomen pelvis wo con [id number] IMPRESSION: Likely cirrhosis with effusions, ascites, and trunk edema.
[2023-09-11 07:23] LABS: Alanine Aminotransferase 34 U/L (0-41); Albumin Level 2.5 g/dL (3.5-5.2); Alcohol Level 30 mg/dL (0-10); Alkaline Phosphatase 101 U/L (40-130); Anion Gap 14.8 (5-19); Aspartate Amino Transferase 107 U/L (0-40); Blood Urea Nitrogen 15 mg/dL (6-20); Calcium 7.9 mg/dL (8.5-10.5); Carbon Dioxide 23 mmol/L (22-29); Chloride 84 mmol/L (98-107); Globulin 5.3 g/dL (1.3-4.6); Glomerular Filtration Rate 99.6 mL/min (90-130); Glucose 147 mg/dL (65-115); Lipase 58 U/L (13-60); Magnesium 1.6 mg/dL (1.7-2.3); NT Pro B Type Natriuretic Pept 615 pg/mL (0-125); Osmolality Calculated 248 mOsm/kg (285-295); Potassium 4.8 mmol/L (3.5-5.1); Total Bilirubin 2.5 mg/dL (0.15-1.2); Total Protein 7.8 g/dL (6.6-8.7)
[2023-09-11 07:27] LABS: Acetaminophen < 5.0 ug/mL (10-30); Salicylate < 0.3 mg/dL (3-10)
[2023-09-11 07:28] LABS: Creatine Phosphokinase 1457 U/L (39-308); Sodium 117 mmol/L (136-145)
[2023-09-11] MEDS: pantoprazole 40 mg SDV 80 MG IVP (07:28)
[2023-09-11 07:48] LABS: ABG PCO2 46.6 mmHg (35-45); Arterial Blood Gas Hematocrit 17.6 % (42-52); Base Excess ABG 3.3 mmol/L (-2.0-2.0); Blood Gas Allen Test Pos; Blood Gas LPM 1.5 %; Blood Gas Operator Identificat WALCI; Blood Gas Sample Site Radial, left; Blood Gas Sample Type Arterial; Carboxyhemoglobin 3.6 %THgb (0.4-20.1); HCO3 ABG 28.5 mmol/L (22-26); HGB O2 Sat 90.5 % (95-100); Ionized Calcium Level - ABG 1.1 mmol/L (1.1-1.4); Methemoglobin 0.7 % (0.4-1.5); Oxygen Device NC; Oxygen Saturation ABG 94.5; Potassium Level - ABG 4.6 mmol/L (3.5-5.0); Total Hemoglobin 5.7 g/dL (14-18)
[2023-09-11] MEDS: acetaminophen 500 mg Tablet 1000 MG PO (08:25)
[2023-09-11] MEDS: methylPREDNISolone sod succ 40 mg/mL INJ IVP (08:26)
[2023-09-11] MEDS: diphenhydrAMINE 50 mg/mL SDV 1mL 25 MG IVP (08:26)
[2023-09-11] MEDS: sodium chloride 0.9% 100 mL Bag 50 ML IV (08:30)
[2023-09-11] MEDS: cefTRIAXone 2,000 MG in sodium chloride 0.9% (plus) 50 ML 100 MG IV (08:30)
[2023-09-11 08:36] LABS: Reflex Lactate Order REFLEX LACTIC ORDERD
--- NOTE | 2023-09-11 08:48 | PC.NURSE ---
pt verbalized understanding and consent for blood transfusion, pt expresses previous post transfusion reaction, md notified orders for 25mg ivp diphehydramine, 40mg ivp solumedrol and 1000mg po Tylenol. transfusion started at 0837 second nurse thermoplastic technician pt tolerates initial 15 minutes well.
[2023-09-11 08:49] LABS: Add Urine Microscopic? NO; Charge for UA Resulting for Rev
--- NOTE | 2023-09-11 08:52 | PC.PHAR ---
pt states he takes care of his own medications-pt states he takes pantoprazole 40mg daily ext shows last filled 07/19/23 30d/s 40mg bid-pt states he no longer takes spironolactone 100mg daily ext shows last filled 04/03/23 30d/s
[2023-09-11] MEDS: sodium chloride 0.9% 1,000 ML 100 ML IV (08:55)
[2023-09-11 09:04] LABS: Influenza A by IFA negative (Negative); Influenza B by IFA negative (Negative)
[2023-09-11 09:06] LABS: Bilirubin Urine Neg (Negative); Blood Urine Neg (Negative); Glucose Urine UA Norm (Normal); Ketones Urine Negative (Negative); Leukocyte Esterase Urine Negative (Negative); Nitrate Urine Negative (Negative); Protein Urine Neg (Negative); Urine Appearance Clear (CLEAR); Urine Color Yellow (Yellow); Urobilinogen Urine 1 mg/dL (Negative); pH Urine 5 (5-7)
[2023-09-11 09:15] LABS: Troponin 5 2HR 33.07 ng/L (0-15); Troponin 5 2HR Delta 2.07 ABS# (0-10)
[2023-09-11 10:32] LABS: Adenovirus Not Detected (NOT DETECT); Chlamydia Pneumoniae Not Detected (NOT DETECT); Coronavirus 229E,HKU1,NL63,OC4 Not Detected (NOT DETECT); Human Metapneumovirus Not Detected (NOT DETECT); Human Rhinovirus/Enterovirus Not Detected (NOT DETECT); Influenza A Not Detected (NOT DETECT); Influenza A H1 Not Detected (NOT DETECT); Influenza A H1-2009 Not Detected (NOT DETECT); Influenza A H3 Not Detected (NOT DETECT); Influenza B Not Detected (NOT DETECT); Mycoplasma Pneumoniae Not Detected (NOT DETECT); Parainfluenza Virus Type 1 Not Detected (NOT DETECT); Parainfluenza Virus Type 2 Not Detected (NOT DETECT); Parainfluenza Virus Type 3 Not Detected (NOT DETECT); Parainfluenza Virus Type 4 Not Detected (NOT DETECT); Respiratory Syncytial Virus A Not Detected (NOT DETECT); Respiratory Syncytial Virus B Not Detected (NOT DETECT); SARS-COV-2 Not Detected (NOT DETECT)
[2023-09-11 11:54] LABS: Basophils % 0.1 %; Eosinophils % 0.2 %; Hematocrit 23.3 % (37-53); Lymphocytes # 0.6 10^3/uL (0.8-4.8); Lymphocytes % 6.2 %; Mean Corpuscular HGB Conc 29.2 g/dL (30-55); Mean Corpuscular Hemoglobin 23.1 pg (27-33); Mean Corpuscular Volume 79.3 fl (82-101); Mean Platelet Volume 9.2 fL (7.4-10.4); Monocytes # 0.4 10^3/uL (0.2-0.9); Monocytes % 4.4 %; Neutrophils # 7.85 10^3/uL (1.8-7.7); Neutrophils % 88.2 %; Nucleated Red Blood Cells % 0.2 %; Platelet Count 131 10^3/cmm (157-399); Red Blood Count 2.94 10^6/uL (3.85-5.65); Red Cell Distribution Width 21.2 % (12.1-15.1)
[2023-09-11 12:14] LABS: Lactic Acid level (Lactate) 2.2 mmol/L (0.5-2.2)
--- NOTE | 2023-09-11 12:28 | ECG_ITS ---
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 Measurements Intervals [place] Rate: 84 P: 72 IA: 179 QRS: -82 QRSD: 118 T: 66 QT: 384 QTc: 454 Interpretive Statements SINUS RHYTHM LOW QRS VOLTAGE [QRS DEFLECTION < 0.5/1.0 mV IN LIMB/CHEST LEADS] PATTERN CONSISTENT WITH PULMONARY DISEASE LEFT ANTERIOR FASCICULAR BLOCK [QRS AXIS <= -45, QR IN I, RS IN II] Compared to ECG 09/11/2023 07:17:07 First degree AV block no longer present Electronically Signed On 09-13-2023 10:55:18 SIGNS SALES REPRESENTATIVE by Baltazar Michelle M.D. [email or web address]
[2023-09-11 13:29] LABS: Troponin 5 6HR 35.25 ng/L (0-15); Troponin 5 6HR Delta 4.25 ng/L (0-12)
--- NOTE | 2023-09-11 13:44 | P.HP_ITS ---
Providers/Chief Complaint 2 Primary Care Provider: Elizabeth Gagnon MD Chief Complaint: back pain History of Present Illness 58-year-old gentleman with EtOH use disorder, congestive heart failure, anemia, liver cirrhosis, lumbar radiculopathy, COPD, hypothyroidism, presents to ER due to difficulties with ambulation, falling, in ER found to have severe anemia, hemoglobin 5.7, lactic acid 4.5. Magnesium 1.6. Calcium 7.9. T. bili 2.5, with chronic elevation, AST 107, CK 1457. Baseline troponin mildly elevated in the 30s. NT-proBNP 615. Lipase WNL. UA unremarkable. EtOH 30 mg/dL, negative salicylates and acetaminophen. Rapid flu and influenza negative. CT abdomen pelvis with likely cirrhosis with effusions, ascites and trunk edema. Chest x- ray without acute findings. He is somnolent but oriented. Ammonia noted WNL. Review of Systems 2 Const: Reports: other (falls); Denies: fever(s), chills, body aches or malaise Eyes: Denies: change in vision ENMT: Denies: throat pain Card: Denies: chest pain, edema, pre-syncope or dyspnea on exertion Resp: Denies: dyspnea, productive cough, change in phlegm color or hemoptysis GI: Denies: abdominal pain, nausea, vomiting, diarrhea, constipation, hematochezia or melena : Denies: flank pain, difficulty urinating, urinary frequency or hematuria Musc: Denies: back pain, joint swelling or joint redness Skin/Breast: Denies: rash or new lesions Neuro: Denies: headache(s), numbness in extremities or weakness in extremities Medications/Allergies Home Medications Medication Instructions Recorded Confirmed Last Taken Type levothyroxine 50 mcg tablet 50 mcg PO QAM 11/18/21 09/11/23 03/30/23 History (Euthyrox) lidocaine 5 % topical patch See Rx Instructions .Route .COMPLEX 02/18/23 09/11/23 02/18/23 History pantoprazole 40 mg tablet,delayed 40 mg PO DAILY 02/18/23 09/11/23 02/28/23 History release see pharmacy comment trazodone 50 mg tablet 150 mg PO BEDTIME 02/28/23 09/11/23 Unknown History folic acid 1 mg tablet 1 mg PO DAILY #60 tabs 04/03/23 09/11/23 Unknown Rx metformin 500 mg tablet 500 mg PO DAILY #60 tabs 04/03/23 09/11/23 Unknown Rx thiamine mononitrate (vit B1) 100 100 mg PO DAILY #60 tabs 04/03/23 09/11/23 Unknown Rx mg tablet (Vitamin B-1 (mononitrate)) furosemide 40 mg tablet 40 mg PO BID 09/11/23 09/11/23 Unknown History potassium chloride 10 mEq 10 meq PO BID 09/11/23 09/11/23 Unknown History tablet,extended release Allergies Allergy/AdvReac Type Severity Reaction Status Date / Time Penicillins Allergy Unknown Verified 09/11/23 08:47 PFSH Acute 2 PFSH: Medical History Congestive heart failure Anemia Ascites Liver cirrhosis Lumbar radiculopathy, chronic Hypothyroid Alcoholism COPD (chronic obstructive pulmonary disease) Surgical History S/P laminectomy with spinal fusion Family History Father CAD (coronary artery disease) Social History Smoking and tobacco/nicotine status: current every day tobacco/nicotine user Alcohol intake: current Alcohol intake frequency: 3 or more drinks per day Alcohol use comment: Patient admits to 7+ drinks per day Substance/Drug Use: current Vitals/I&O/Wt Last Vital Signs Temp 98.9 F 09/11/23 10:36 Pulse 89 09/11/23 13:07 Resp 27 H 09/11/23 13:07 BP 151/80 09/11/23 13:07 Pulse Ox 100 09/11/23 13:07 O2 Del Method Nasal Cannula 09/11/23 13:07 O2 Flow Rate 2 09/11/23 13:07 09/10/23 09/11/23 09/11/23 22:59 06:59 14:59 Intake Total 100 / 100 Balance 100 / 100 Weight last 48 hrs Weight 131.542 kg Physical Exam 2 Const: COMMON NORMALS: patient oriented x3 GENERAL APPEARANCE: cooperative NUTRITIONAL APPEARANCE: obese ORIENTATION/CONSCIOUSNESS: Yes lethargic HENMT: COMMON NORMALS: oropharynx normal Neck/C-Spine: COMMON NORMALS: no JVD Resp: COMMON NORMALS: normal respiratory effort and clear to auscultation bilaterally AUSCULTATION: clear to auscultation bilaterally Cardio: COMMON NORMALS: no JVD, regular rhythm, S1 normal heart sound present, S2 normal heart sound present and No murmurs present (Cardio) RHYTHM: regular rhythm HEART SOUNDS: S1 normal heart sound present and S2 normal heart sound present GI: COMMON NORMALS: Normal to inspection, nondistended, normoactive bowel sounds present, Soft to palpation and non-tender PALPATION: Yes Soft to palpation OTHER: Large abdomen. Extremity: COMMON NORMALS: no joint enlargement GENERAL: Yes edema Neuro: COMMON NORMALS: patient oriented x3 and moves all extremities S ENSORIUM/ORIENTATION: Yes alert Skin: GENERAL SKIN EXAM: no rashes or lesions noted OTHER: Chronic stasis dermatitis bilateral lower extremities. Urinary Catheter Management: Flores: Cath Placed During This Visit: yes Urinary Catheter Date of Insertion: 09/11/23 Urinary Catheter Time of Insertion: 13:12 Data 09/11/23 11:46 09/11/23 06:45 A&P Assessment and plan (1) Acute blood loss anemia: Reviewed vitals, CBC, INR, CMP, CT abdomen pelvis, ER note, discussed with ER physician. No signs of variceal bleeding at this time. No hematemesis. Patient reports that his stool has been brown, but was positive for Hemoccult. Likely currently progressive anemia who is currently symptomatic severe anemia hemoglobin down to 5.7. Received 1 unit RBC transfusion, repeat CBC reviewed, hemoglobin reviewed, noted 6.8, additional unit RBC requested. With severity of his condition, at risk of organ hypoperfusion/hypoxia, injury, with liver cirrhosis and risk of further bleeding. INR reviewed, 1.79. Initial admission to intensive care unit due to severity of anemia, he is also somewhat lethargic, also with noted lactic acidosis, hypoperfusion, do suspect secondary to severe anemia and in the setting of liver cirrhosis and EtOH abuse. IV PPI 40 mg twice daily. Follow-up hemoglobin tonight and in the morning. (2) GI bleeding: Hemoccult positive in ER. Acute anemia hemoglobin 5.7 on presentation. (3) Acute encephalopathy: Acute encephalopathy suspect secondary to EtOH intoxication, EtOH level elevated, however, may be at risk of withdrawal as well. Monitor for withdrawal, CIWA protocol, benzodiazepines per CIWA protocol. Additionally with falls recently, also noted to have hyponatremia, 117. Received IV fluid in the ER. Will recheck sodium, hold further fluid for now. He does have some edema, concern more for possibility of hypervolemic hyponatremia, follow-up sodium level. Reviewed magnesium, noted hypomagnesemia. Requesting magnesium supplementation. Follow-up magnesium level. Reviewed CMP, ammonia, ammonia not elevated. Reviewed UA, rapid COVID-19, up influenza, chest x-ray. (4) Hyponatremia: Sodium 117 on presentation. Received some IV hydration in ER. Stop IV fluids. Recheck sodium. He does have some edema, concern possibly for some hypervolemic hyponatremia, will follow-up sodium at intervals. With hypervolemia, CHF exacerbation, also recheck sodium noted down to 114, IV hydration has been discontinued, given dose of Lasix 40 mg. Plan Sleep apnea: Suspected sleep apnea, noted some desaturation in ER requiring a couple liters of oxygen, not normally on oxygen. Chest x-ray reviewed, unremarkable. ABG reviewed, some hypoxia noted, hypercapnia which is compensated. Underlying COPD. Could suspect obesity hypoventilation syndrome, however, at risk of sleep apnea and would suspect likely has undiagnosed sleep apnea. Would benefit from sleep study. Oxygen support for now. Hold additional IV fluids. EtOH use disorder: Would benefit from rehabilitation. Consult case management when they are back to provide him with some options. Congestive heart failure: Does appear in some exacerbation, edematous, has some edema features noted on CT scan as well. Stop IVF. Will give him Lasix 40 mg IV. Monitor WILY. Weights. Monitor on telemetry. Rhabdomyolysis: CK 1457. Follow-up CK level. Liver cirrhosis: Ammonia looks WNL. With GI bleed, cirrhosis, for now empirically continue with ceftriaxone coverage for SBP. Otherwise no abdominal pain, tenderness, he is afebrile, without leukocytosis. Hypothyroidism: Resume levothyroxine once able to safely take p.o. medicines. COPD: Does not appear currently in exacerbation. Smoking addiction: Encourage cessation. Nicotine replacement as needed. Attestations 2 Medical Necessity Statement*: Admission of over 2 midnights anticipated for assessment and management of symptomatic severe anemia, GI bleeding in a gentleman with liver cirrhosis, acute encephalopathy, severe hyponatremia, falls. Coding Level of Care Code Critical Care >/= 30 minutes Critical care time (in minutes): 40 The high probability of a clinically significant, sudden or life threatening deterioration, as referenced in this documentation, required my full and direct attention, intervention and personal management. The critical care time shown is in addition to time spent performing any reported separately billable procedures and includes the following: [x] Data and vital sign review and interpretation [x ] Patient assessment, examination and intervention [x] Medication orders and management [x] Patient/Family updates as able [x] Care Coordination and Documentation. Diagnoses Acute blood loss anemia D62 GI bleeding K92.2 Acute encephalopathy G93.40 Hyponatremia E87.1
--- NOTE | 2023-09-11 13:50 | CTR_ITS ---
PROCEDURE INFORMATION: Exam: CT Head Without Contrast Exam date and time: 09/11/2023 2:05 PM Age: 58 years old Clinical indication: Injury or trauma; Fall; Blunt trauma (contusions or hematomas); Additional info: Falls TECHNIQUE: Imaging protocol: Computed tomography of the head without contrast. Axial, coronal and sagittal reformatted images were created and reviewed. Radiation optimization: All CT scans at this facility use at least one of these dose optimization techniques: automated exposure control; mA and/or kV adjustment per patient size (includes targeted exams where dose is matched to clinical indication); or iterative reconstruction. COMPARISON: MR cervical spin wo con* [id number] 04/15/2023 11:19 AM RADIATION DOSE METRICS: Total DLP (mGy-cm): 1235.58 FINDINGS: Brain: Subtle, patchy areas of hypoattenuation in the periventricular and subcortical white matter, nonspecific but suggestive of mild chronic small vessel ischemic disease. No CT evidence of acute intracranial hemorrhage or acute territorial infarction. No significant mass effect or midline shift. Basal cisterns patent. Cerebral ventricles: Prominence of the cortical sulci, cisterns and ventricular system, consistent with cerebral and cerebellar volume loss. Paranasal sinuses: Mild ethmoid mucosal thickening. No air-fluid levels. Mastoid air cells: Grossly unremarkable. Bones/joints: No acute osseous abnormality. Soft tissues: Grossly unremarkable. Vasculature: Calcific atherosclerotic disease in the cavernous internal carotid arteries. CT/CT head wo con* [id number] IMPRESSION: 1. No CT evidence of acute intracranial pathology. 2. Additional findings, as above.
[2023-09-11 14:06] LABS: Sodium 114 mmol/L (136-145)
--- NOTE | 2023-09-11 14:21 | PC.NURSE ---
report given to JIM RN, pt is stable no current complaints or concerns. pt transferred to ICU.
--- NOTE | 2023-09-11 14:23 | PC.NURSE ---
provider notification- Dr. Fernandez given pt update, order to cancel chest x-ray and abg's. Pet House Sitter was not notified of initial Dr notification and clarification was provided to provider by underwriter solicitation director. pt is stable with no current complaints or concerns.
[2023-09-11] MEDS: magnesium sulfate premix 4 GM/100 ML PREMIX IV (14:46)
[2023-09-11] MEDS: FUROsemide 10 mg/mL SDV 4mL 40 MG IVP (15:05)
--- NOTE | 2023-09-11 15:43 | PC.NURSE ---
Lasix given iv on arrival monitor urine output at this time pending 1 more unit of prbc awaiting diuresis and increase sats
[2023-09-11 17:28] LABS: Glucose Point of Care 181 mg/dL (70-110)
[2023-09-11] MEDS: insulin lispro 100 unit/1 mL SUBCUT (17:35)
[2023-09-11] MEDS: pantoprazole 40 mg SDV IVP (18:45)
[2023-09-11 21:43] LABS: Sodium 124 mmol/L (136-145)
[2023-09-12] VITALS (34 sets, daily range): BP systolic 120–177; BP diastolic 54–153; PULSE 68–101; RESP 0–28; TEMP 36.6–36.9; O2SAT 78–100
[2023-09-12 02:11] LABS: Glucose Point of Care 160 mg/dL (70-110)
[2023-09-12 02:11] LABS: Glucose Point of Care 145 mg/dL (70-110)
[2023-09-12 04:58] LABS: Hematocrit 24.7 % (37-53); Lymphocytes % 12.3 %; Mean Corpuscular HGB Conc 28.7 g/dL (30-55); Mean Corpuscular Hemoglobin 23.5 pg (27-33); Mean Corpuscular Volume 81.8 fl (82-101); Mean Platelet Volume 9.3 fL (7.4-10.4); Monocytes # 0.7 10^3/uL (0.2-0.9); Monocytes % 9.1 %; Neutrophils # 6.29 10^3/uL (1.8-7.7); Neutrophils % 77.7 %; Nucleated Red Blood Cells % 0.2 %; Platelet Count 117 10^3/cmm (157-399); Red Blood Count 3.02 10^6/uL (3.85-5.65); Red Cell Distribution Width 21.5 % (12.1-15.1)
[2023-09-12 05:19] LABS: Alanine Aminotransferase 33 U/L (0-41); Albumin Level 2.3 g/dL (3.5-5.2); Alkaline Phosphatase 95 U/L (40-130); Anion Gap 9.7 (5-19); Aspartate Amino Transferase 83 U/L (0-40); Blood Urea Nitrogen 14 mg/dL (6-20); Calcium 7.9 mg/dL (8.5-10.5); Carbon Dioxide 30 mmol/L (22-29); Chloride 90 mmol/L (98-107); Creatinine Clr Calc Pharmacy 151.9638; Globulin 5.1 g/dL (1.3-4.6); Glomerular Filtration Rate 116.2 mL/min (90-130); Glucose 139 mg/dL (65-115); Magnesium 1.9 mg/dL (1.7-2.3); Osmolality Calculated 263 mOsm/kg (285-295); Potassium 4.7 mmol/L (3.5-5.1); Sodium 125 mmol/L (136-145); Total Bilirubin 3.3 mg/dL (0.15-1.2); Total Protein 7.4 g/dL (6.6-8.7)
[2023-09-12] MEDS: cefTRIAXone 1,000 MG in sodium chloride 0.9% (plus) 50 ML 100 MG IV (06:08)
[2023-09-12] MEDS: pantoprazole 40 mg SDV IVP ×2 (06:08→18:00)
[2023-09-12] MEDS: insulin lispro 100 unit/1 mL SUBCUT ×2 (08:04→17:15)
[2023-09-12 08:19] LABS: Glucose Point of Care 145 mg/dL (70-110)
[2023-09-12] MEDS: folic acid 1 mg Tablet PO (09:02)
[2023-09-12] MEDS: thiamine 100 mg Tablet PO (09:02)
[2023-09-12] MEDS: multivitamin therapeutic Tablet 1 TAB PO (09:02)
--- NOTE | 2023-09-12 09:40 | PC.NURSE ---
prbc started and proceed to monitor vs at this time .. off cpap watching tv generalized edema noted
[2023-09-12 11:26] LABS: Glucose Point of Care 136 mg/dL (70-110)
[2023-09-12] MEDS: FUROsemide 10 mg/mL SDV 2mL 20 MG IVP ×2 (13:17→21:48)
[2023-09-12 16:10] LABS: Sodium 127 mmol/L (136-145)
[2023-09-12 16:34] LABS: Glucose Point of Care 188 mg/dL (70-110)
--- NOTE | 2023-09-12 16:53 | PC.NURSE ---
pt up to side of bed pulling lines off and drinking coffee mother up to visit .
[2023-09-12] MEDS: morphine 4 mg/mL SDV 1 mL 2 MG IVP ×2 (18:39→23:28)
[2023-09-12 19:46] LABS: Glucose Point of Care 148 mg/dL (70-110)
--- NOTE | 2023-09-12 21:53 | P.PN_ITS ---
Subjective 2 Subjective: He is alert today, speaking on the phone with family. Request for oral intake. Discussed with him clear liquid diet. Denies abdominal pain. Denies seeing hematochezia or melena. No hematemesis or hematuria. Vitals/I&O/Wt Last Vital Signs Temp 98.2 F 09/12/23 20:00 Pulse 73 09/12/23 21:00 Resp 3 L 09/12/23 21:00 BP 157/78 09/12/23 21:00 Pulse Ox 100 09/12/23 21:00 O2 Del Method Nasal Cannula 09/12/23 20:00 O2 Flow Rate 4 09/12/23 20:00 09/12/23 09/12/23 09/12/23 06:59 14:59 22:59 Intake Total 800 / 800 1240 / 2040 Output Total 1850 / 4200 3000 / 3000 Balance -1850 / -3650 800 / 800 -1760 / -960 Weight last 48 hrs Weight 136.985 kg Weight 136.985 kg Weight 131.542 kg Weight 131.542 kg Physical Exam 2 Const: COMMON NORMALS: patient oriented x3 and alert GENERAL APPEARANCE: c ooperative NUTRITIONAL APPEARANCE: obese HENMT: COMMON NORMALS: oropharynx normal Neck/C-Spine: COMMON NORMALS: no JVD Resp: COMMON NORMALS: normal respiratory effort AUSCULTATION: wheezes and diminished lung sounds Cardio: COMMON NORMALS: no JVD, regular rhythm, S1 normal heart sound present, S2 normal heart sound present and No murmurs present (Cardio) RHYTHM: regular rhythm HEART SOUNDS: S1 normal heart sound present and S2 normal heart sound present GI: COMMON NORMALS: Normal to inspection, nondistended, normoactive bowel sounds present, Soft to palpation and non-tender PALPATION: Yes Soft to palpation OTHER: Large abdomen. Extremity: COMMON NORMALS: no joint enlargement GENERAL: Yes edema (2+) Neuro: COMMON NORMALS: patient oriented x3 and moves all extremities S ENSORIUM/ORIENTATION: Yes alert Skin: COMMON NORMALS: no rashes or lesions noted GENERAL SKIN EXAM: no rashes or lesions noted OTHER: Chronic stasis dermatitis bilateral lower extremities. Urinary Catheter Management: Flores: Cath Placed During This Visit: yes Reason for Continuing Indwelling Catheter: Accurate Measurement of Urinary Output in Critically Ill Patients Urinary Catheter Date of Insertion: 09/11/23 Urinary Catheter Time of Insertion: 13:12 Data 09/12/23 21:10 09/12/23 15:30 A&P Assessment and plan (1) Acute blood loss anemia: Discussed with him anemia, requirement for transfusions. Additional RBC transfusion given this morning. Rechecking to see me again hemoglobin 6.7. He denies gallo hematochezia or melena, however, stool positive for on Hemoccult in ER. Microcytic anemia, MCV 79.3. Obtain iron studies. Noted some thrombocytopenia, likely secondary to cirrhosis, however, will request DIC panel, LDH, haptoglobin, reticulocyte. Peripheral smear. He states never had an EGD, had a colonoscopy about some years ago. Discussed with him will need endoscopic evaluation. However currently with hypoxia requiring 4 L nasal cannula oxygen with COPD exacerbation, not normally on oxygen. Additionally with sleep apnea, saturations noted dropping down into the 70s, to be started on CPAP. Respiratory function will need to show some additional improvement before can proceed to endoscopic procedure more safely. IV PPI 40 mg twice daily. Follow-up hemoglobin tonight and in the morning. (2) COPD exacerbation: With hypoxia, combination of COPD exacerbation with acute on chronic hypoxic respiratory failure, requiring 4 L of oxygen, also with hypoxia while sleeping sats additionally dropping into the 70s. Required NIPPV. Not a candidate for steroids. Continue ceftriaxone. Add scheduled and as needed nebs. (3) GI bleeding: Hemoccult positive in ER. Acute anemia hemoglobin 5.7 on presentation. As above. (4) Hyponatremia: States he was. Consult tablets at home but has not been taking them regularly.Last night discussed with heating mechanic for follow-up sodium. Last night sodium 124, this morning 125. Needing additional RBC transfusion. Additional Lasix requested - risk of overly rapid correction. Discussed with him. Risk of unpredictable fluctuation given he is also requiring RBC transfusion. Sodium repeated in late afternoon, 127. Recheck sodium tonight and follow-up chemistry in the morning. With hypervolemia, CHF exacerbation, also recheck sodium noted down to 114, IV hydration has been discontinued, given dose of Lasix 40 mg. (5) Acute encephalopathy: So far resolved. Monitor for alcohol withdrawal. Suspect a combination alcohol intoxication, severe hyponatremia. He states was post to be on salt tablets at home but has not been taking them regularly. Acute encephalopathy suspect secondary to EtOH intoxication, EtOH level elevated, however, may be at risk of withdrawal as well. Monitor for withdrawal, CIWI protocol, benzodiazepines per CIWA protocol. Additionally with falls recently, also noted to have hyponatremia, 117. Received IV fluid in the ER. Will recheck sodium, hold further fluid for now. He does have some edema, concern more for possibility of hypervolemic hyponatremia, follow-up sodium level. Reviewed magnesium, noted hypomagnesemia. Requesting magnesium supplementation. Follow-up magnesium level. Reviewed CMP, ammonia, ammonia not elevated. Reviewed UA, rapid COVID-19, up influenza, chest x-ray. Plan Sleep apnea: Sats down into the 70s while sleeping this morning. Had to be started on CPAP. Suspected sleep apnea, noted some desaturation in ER requiring a couple liters of oxygen, not normally on oxygen. Chest x-ray reviewed, unremarkable. ABG reviewed, some hypoxia noted, hypercapnia which is compensated. Underlying COPD. Could suspect obesity hypoventilation syndrome, however, at risk of sleep apnea and would suspect likely has undiagnosed sleep apnea. Would benefit from sleep study. Oxygen support for now. Hold additional IV fluids. EtOH use disorder: Would benefit from rehabilitation. Consult case management when they are back to provide him with some options. Monitor for withdrawal. Vitamin supplementation. Congestive heart failure: Does appear in some exacerbation, edematous, has some edema features noted on CT scan as well. Has been cautiously giving him intermittent 20 mg IV Lasix doses with follow-up of sodium. Monitor WILY. Weights. Monitor on telemetry. Rhabdomyolysis: CK 1457. Follow-up CK level requested. Liver cirrhosis: Ammonia looks WNL. With GI bleed, cirrhosis, for now empirically continue with ceftriaxone coverage for SBP. Otherwise no abdominal pain, tenderness, he is afebrile, without leukocytosis. Hypothyroidism: Resume levothyroxine Smoking addiction: Encourage cessation. Nicotine replacement as needed. Attestations 2 Medical Necessity Statement*: Continue admission for assessment of management of severe blood loss anemia, GI bleeding, assessment for other causes of anemia, possible DIC, TTP, hyponatremia, COPD exacerbation with respiratory failure. Coding Level of Care Code Critical Care >/= 30 minutes Critical care time (in minutes): 35 The high probability of a clinically significant, sudden or life threatening deterioration, as referenced in this documentation, required my full and direct attention, intervention and personal management. The critical care time shown is in addition to time spent performing any reported separately billable procedures and includes the following: [x] Data and vital sign review and interpretation [x ] Patient assessment, examination and intervention [x] Medication orders and management [x] Patient/Family updates as able [x] Care Coordination and Documentation. Diagnoses Acute blood loss anemia D62 COPD exacerbation J44.1 GI bleeding K92.2 Hyponatremia E87.1 Acute encephalopathy G93.40
[2023-09-12] MEDS: phytonadione (ADULT) 10 mg/mL Ampule 1 mL 2.5 MG PO (22:39)
[2023-09-12 22:43] LABS: Reflex FDPQ test REFLEX FDP QUEST TES
[2023-09-12 22:45] LABS: Hematocrit 28.4 % (37-53); Retic Production Index 2.98; Reticulocyte % 4.2 % (0.5-2.0)
[2023-09-12 23:02] LABS: Ferritin 211 ng/mL (30-400); INR 1.72 (0.8-1.2); Iron 19 ug/dL (59-158); Lactate Dehydrogenase 255 U/L (135-225); Percent Saturation 6.8 % (20-50); Total Iron Binding Capacity 276 mcg/dl; Unsaturated Iron Binding 257 ug/dL (112-347)
--- NOTE | 2023-09-12 23:05 | PC.NURSE ---
Report called to Delmy. Communicated outstanding order for one unit of blood, which is ready.
[2023-09-12 23:06] LABS: D Dimer 2.69 ug/mLFEU (0-0.59)
[2023-09-12 23:09] LABS: Fibrinogen 104 mg/dL (174-498)
[2023-09-12 23:09] LABS: LAB Peripheral Smear Sent for Review
[2023-09-13] VITALS (24 sets, daily range): BP systolic 103–162; BP diastolic 64–112; PULSE 69–89; RESP 16–20; TEMP 36.3–37.1; O2SAT 77–99; BMI 46.9
[2023-09-13] MEDS: ipratropium-albuterol 3 mL Neb INHALATION ×4 (01:43→20:31)
[2023-09-13 02:05] LABS: Glucose Point of Care 106 mg/dL (70-110)
[2023-09-13] MEDS: morphine 4 mg/mL SDV 1 mL 2 MG IVP ×4 (04:53→19:42)
[2023-09-13 05:06] LABS: Basophils % 0.2 %; Eosinophils # 0.1 10^3/uL (0.0-0.8); Eosinophils % 1.1 %; Hematocrit 28.6 % (37-53); Lymphocytes # 1.3 10^3/uL (0.8-4.8); Lymphocytes % 23.1 %; Mean Corpuscular HGB Conc 30.1 g/dL (30-55); Mean Corpuscular Hemoglobin 24.6 pg (27-33); Mean Corpuscular Volume 81.9 fl (82-101); Mean Platelet Volume 8.9 fL (7.4-10.4); Monocytes # 0.6 10^3/uL (0.2-0.9); Monocytes % 10.5 %; Neutrophils # 3.56 10^3/uL (1.8-7.7); Neutrophils % 64.7 %; Nucleated Red Blood Cells % 0 %; Platelet Count 107 10^3/cmm (157-399); Red Blood Count 3.49 10^6/uL (3.85-5.65)
[2023-09-13 05:28] LABS: Alanine Aminotransferase 35 U/L (0-41); Albumin Level 2.2 g/dL (3.5-5.2); Alkaline Phosphatase 83 U/L (40-130); Anion Gap 9.3 (5-19); Aspartate Amino Transferase 80 U/L (0-40); Blood Urea Nitrogen 9 mg/dL (6-20); Calcium 7.8 mg/dL (8.5-10.5); Carbon Dioxide 34 mmol/L (22-29); Chloride 93 mmol/L (98-107); Globulin 4.9 g/dL (1.3-4.6); Glomerular Filtration Rate 138.9 mL/min (90-130); Glucose 102 mg/dL (65-115); Magnesium 1.3 mg/dL (1.7-2.3); Osmolality Calculated 275 mOsm/kg (285-295); Potassium 3.3 mmol/L (3.5-5.1); Sodium 133 mmol/L (136-145); Total Bilirubin 3.1 mg/dL (0.15-1.2); Total Protein 7.1 g/dL (6.6-8.7)
[2023-09-13] MEDS: levothyroxine 50 mcg Tablet PO (06:06)
[2023-09-13] MEDS: cefTRIAXone 1,000 MG in sodium chloride 0.9% (plus) 50 ML 100 MG IV (06:07)
[2023-09-13] MEDS: pantoprazole 40 mg SDV IVP ×2 (07:11→18:22)
[2023-09-13] MEDS: multivitamin therapeutic Tablet 1 TAB PO (08:23)
[2023-09-13] MEDS: thiamine 100 mg Tablet PO (08:23)
[2023-09-13] MEDS: folic acid 1 mg Tablet PO (08:23)
--- NOTE | 2023-09-13 11:08 | CTR_ITS ---
PROCEDURE INFORMATION: Exam: CT Head Without Contrast Exam date and time: 09/13/2023 1:08 PM Age: 58 years old Clinical indication: Altered mental status/memory loss; Additional info: Stroke TECHNIQUE: Imaging protocol: Computed tomography of the head without contrast. Radiation optimization: All CT scans at this facility use at least one of these dose optimization techniques: automated exposure control; mA and/or kV adjustment per patient size (includes targeted exams where dose is matched to clinical indication); or iterative reconstruction. COMPARISON: CT head wo con* [id number] 09/11/2023 2:05 PM RADIATION DOSE METRICS: Total DLP (mGy-cm): 1061 FINDINGS: Brain: No midline shift. Ventricles, cisterns, and sulci are normal. No mass, acute infarct, hemorrhage, or extraaxial fluid collection. Cerebral ventricles: No ventriculomegaly. Paranasal sinuses: Visualized sinuses are unremarkable. No fluid levels. Mastoid air cells: Visualized mastoid air cells are well aerated. Bones/joints: Unremarkable. No acute fracture. Soft tissues: Unremarkable. CT/CT head wo con* [id number] IMPRESSION: No acute intracranial abnormality.
--- NOTE | 2023-09-13 11:13 | PC.SOCIAL ---
Pg 2 IMM Explained to pt Pg 2 IMM. No questions voiced. Provided pt a copy. Initialed, dated, & timed a copy & placed in chart.
[2023-09-13 11:39] LABS: Vitamin B12 1188 pg/mL (232-1245)
[2023-09-13 11:55] LABS: Glucose Point of Care 139 mg/dL (70-110)
[2023-09-13] MEDS: sucralfate 1 gm Tablet PO ×3 (11:56→21:23)
[2023-09-13] MEDS: potassium chloride ER 20 mEq Tablet 80 MEQ PO (11:56)
[2023-09-13] MEDS: magnesium sulfate premix 2 GM/50 ML PIGGYBACK IV (11:57)
--- NOTE | 2023-09-13 14:36 | P.PN_ITS ---
Subjective 2 Subjective: Hospital course, labs appreciated. On examination sitting up in chair. Denies any nausea, ting, headache. States he has not had a bowel movement since hospitalization. Has remained hemodynamically stable and afebrile. Complaining of disequilibrium and being unsteady on his feet for 10 to 15 years with multiple falls more so recently. Vitals/I&O/Wt Last Vital Signs Temp 97.3 F L 09/13/23 11:10 Pulse 79 09/13/23 11:10 Resp 20 H 09/13/23 11:10 BP 140/73 09/13/23 11:10 Pulse Ox 96 09/13/23 11:10 O2 Del Method Nasal Cannula 09/13/23 11:10 O2 Flow Rate 4 09/13/23 08:00 09/12/23 09/13/23 09/13/23 22:59 06:59 14:59 Intake Total 1240 / 2040 350 / 2390 820 / 820 Output Total 3000 / 3000 3000 / 6000 Balance -1760 / -960 -2650 / -3610 820 / 820 Weight last 48 hrs Weight 135.942 kg Weight 136.985 kg Weight 136.985 kg Weight 131.542 kg Physical Exam 2 Const: COMMON NORMALS: patient oriented x3 and alert GENERAL APPEARANCE: c ooperative NUTRITIONAL APPEARANCE: obese HENMT: COMMON NORMALS: oropharynx normal Neck/C-Spine: COMMON NORMALS: no JVD Resp: COMMON NORMALS: normal respiratory effort and clear to auscultation bilaterally AUSCULTATION: clear to auscultation bilaterally, wheezes and diminished lung sounds Cardio: COMMON NORMALS: no JVD, regular rhythm, S1 normal heart sound present, S2 normal heart sound present and No murmurs present (Cardio) RHYTHM: regular rhythm HEART SOUNDS: S1 normal heart sound present and S2 normal heart sound present GI: COMMON NORMALS: Normal to inspection, nondistended, normoactive bowel sounds present, Soft to palpation and non-tender PALPATION: Yes Soft to palpation OTHER: Large abdomen. Morbidly obese Extremity: COMMON NORMALS: no joint enlargement GENERAL: Yes edema (2+) Neuro: COMMON NORMALS: patient oriented x3 and moves all extremities S ENSORIUM/ORIENTATION: Yes alert Skin: COMMON NORMALS: no rashes or lesions noted GENERAL SKIN EXAM: no rashes or lesions noted OTHER: Chronic stasis dermatitis bilateral lower extremities. Urinary Catheter Management: Flores: Cath Placed During This Visit: yes Reason for Continuing Indwelling Catheter: Acute Urinary Retention or Obstruction Urinary Catheter Date of Insertion: 09/11/23 Urinary Catheter Time of Insertion: 13:12 Data 09/13/23 04:17 09/13/23 04:17 A&P Assessment and plan (1) Acute blood loss anemia: Unknown cause. Stool for occult blood positive in the ER though patient has not had a bowel movement since admission. Most likely in setting of chronic alcohol use. Overall following the blood transfusion. Hemoglobin 8.6 today. Appreciate iron panel, check vitamin B12 and folate levels. Start on oral iron supplementation. Continue with IV Protonix twice daily. Add Carafate before meals and at bedtime. Negative DIC panel. Repeat hemoglobin in AM. (2) COPD exacerbation: Acute on chronic hypoxic respiratory failure most likely in setting of COPD exacerbation. No consolidation on chest x-ray admission. Supplementation keeping saturation over 90%. Continue with DuoNebs every 6 hour, add Pulmicort twice daily. Start on prednisone 40 mg daily. (3) GI bleeding: Hemoccult positive in ER. Continue to monitor. Most likely patient will need an EGD and colonoscopy as an outpatient. PPI and Carafate as above. (4) Hyponatremia: Most likely in setting of chronic alcoholism. Improvement after Lasix yesterday. Up to 133 today. Seems to be at baseline. Hold off on Lasix today. Patient overall 6 L negative. Repeat BMP in AM. (5) Acute encephalopathy: So far resolved. Monitor for alcohol withdrawal. Suspect a combination alcohol intoxication, severe hyponatremia. He states was post to be on salt tablets at home but has not been taking them regularly. Plan Hypokalemia: Replete overall with 120 mg. Replete 2 mg of IV magnesium. Frequent falls: Most likely in setting of chronic alcoholism. Cannot rule out mild Korsakoff's. Patient did have anemia and hyponatremia on admission though he has been complaining of frequent falls for over 3 to 4 years. Check PT evaluation. Patient declining SNF placement. Would be open to outpatient physical therapy versus home health with physical therapy. Agreeable for alcohol cessation. Discussed with him regarding resources available to help get over alcohol dependence. Orthostatic negative. Check vitamin B12 and folate levels. Check CT head to rule out stroke versus bleed. Liver cirrhosis: Rhabdomyolysis: Resolved Congestive heart failure: Last echocardiogram from 2021 showed a normal EF with grade 1 diastolic dysfunction, dilated RV and LA. Full code Advance to mechanical soft diet Protonix for PUD prophylaxis SCDs for DVT prophylaxis DC Flores catheter. Discharge plan: Plan to discharge in next 24 hours if hemoglobin remained stable. Attestations 2 Medical Necessity Statement*: Requires further hospitalization for management of acute on chronic anemia requiring blood transfusion patient with chronic alcoholism, hyponatremia Diagnoses Acute blood loss anemia D62 COPD exacerbation J44.1 GI bleeding K92.2 Hyponatremia E87.1 Acute encephalopathy G93.40
[2023-09-13] MEDS: predniSONE 20 mg Tablet 40 MG PO (15:40)
[2023-09-13 17:10] LABS: Glucose Point of Care 118 mg/dL (70-110)
[2023-09-13] MEDS: budesonide 0.5 mg/2 mL Neb INHALATION (20:31)
[2023-09-13 21:03] LABS: Glucose Point of Care 176 mg/dL (70-110)
[2023-09-13] MEDS: zolpidem 5 mg Tablet PO (21:23)
[2023-09-13 23:40] LABS: Glucose Point of Care 176 mg/dL (70-110)
[2023-09-14] VITALS (11 sets, daily range): BP systolic 110–161; BP diastolic 61–75; PULSE 81–94; RESP 15–18; TEMP 36.6–37; O2SAT 85–98
[2023-09-14] MEDS: ipratropium-albuterol 3 mL Neb INHALATION ×2 (02:37→07:32)
[2023-09-14 04:37] LABS: Eosinophils % 0.2 %; Hematocrit 28.1 % (37-53); Lymphocytes # 0.9 10^3/uL (0.8-4.8); Lymphocytes % 16.3 %; Mean Corpuscular HGB Conc 30.2 g/dL (30-55); Mean Corpuscular Hemoglobin 24.7 pg (27-33); Mean Corpuscular Volume 81.7 fl (82-101); Mean Platelet Volume 9.1 fL (7.4-10.4); Monocytes # 0.4 10^3/uL (0.2-0.9); Monocytes % 7.9 %; Neutrophils % 74.9 %; Nucleated Red Blood Cells % 0 %; Platelet Count 98 10^3/cmm (157-399); Red Blood Count 3.44 10^6/uL (3.85-5.65); White Blood Count 5.34 10^3/uL (3.29-11.43)
[2023-09-14 04:48] LABS: Glucose Point of Care 179 mg/dL (70-110)
[2023-09-14 04:57] LABS: Alanine Aminotransferase 36 U/L (0-41); Albumin Level 2.2 g/dL (3.5-5.2); Alkaline Phosphatase 81 U/L (40-130); Aspartate Amino Transferase 70 U/L (0-40); Blood Urea Nitrogen 7 mg/dL (6-20); Calcium 7.7 mg/dL (8.5-10.5); Carbon Dioxide 36 mmol/L (22-29); Chloride 91 mmol/L (98-107); Globulin 4.6 g/dL (1.3-4.6); Glomerular Filtration Rate 171.4 mL/min (90-130); Glucose 163 mg/dL (65-115); Magnesium 1.3 mg/dL (1.7-2.3); Osmolality Calculated 272 mOsm/kg (285-295); Sodium 130 mmol/L (136-145); Total Bilirubin 2.6 mg/dL (0.15-1.2); Total Protein 6.8 g/dL (6.6-8.7)
[2023-09-14 05:20] LABS: Folate Level 13.9 ng/mL (4.5-32.2)
[2023-09-14] MEDS: pantoprazole 40 mg SDV IVP (06:12)
[2023-09-14] MEDS: sucralfate 1 gm Tablet PO ×2 (06:13→11:34)
[2023-09-14] MEDS: cefTRIAXone 1,000 MG in sodium chloride 0.9% (plus) 50 ML 100 MG IV (06:13)
[2023-09-14] MEDS: levothyroxine 50 mcg Tablet PO (06:13)
[2023-09-14] MEDS: budesonide 0.5 mg/2 mL Neb INHALATION (07:32)
[2023-09-14] MEDS: insulin lispro 100 unit/1 mL SUBCUT ×2 (08:06→11:34)
[2023-09-14] MEDS: thiamine 100 mg Tablet PO (08:56)
[2023-09-14] MEDS: folic acid 1 mg Tablet PO (08:56)
[2023-09-14] MEDS: multivitamin therapeutic Tablet 1 TAB PO (08:56)
[2023-09-14] MEDS: predniSONE 20 mg Tablet 40 MG PO (08:56)
--- NOTE | 2023-09-14 09:17 | PC.CHAP ---
Pastoral Care Encounter/Spiritual Assessment Type of Contact [] Declined operator automated process visit [] Patient/Family/Request visit [] Outpatient visit [] Follow-up visit [] Physician referral [] Code/Alert [x] Routine visit [] Staff referral [] Actively dying [] Patient sleeping [] Family support [] [] Out of room [] Palliative care [] [] Receiving care in room [] Pre-surgical visit [] Trauma [] Long length of stay [] ICU visit [] Other: Relational/Emotional Strength [x] Patient feels connected with others/family/visitors/staff [] Distress [] Loneliness/isolation [] Abandonment Spirituality of Patient [x] Person of Syeda [] Attends Cheondoism of their Syeda [x] Believes in Prayer [] Reads Bible or Anabaptism materials [] There are Spiritual issues to be addressed Computer Field Technician Interventions [x] Prayer [x] Active listening [] Non-anxious presence [x] Spiritual/emotional support [] Crisis/trauma care [] Spiritual counseling [] Bereavement support [] Provided bereavement packet [] Provided Bible/devotional materials [] Provided toy/stuffed animal, coloring book to patient or family member [] Provided Communion [] Anointing/[place] [] Salvation [x] Completed spiritual assessment [] Other: Impact on Illness or Injury [] Angry [] Fearful [] Anxious [] Often cries [] Exhaustion [] Unable to work [] Unable to attend episcopalian [] Unable to walk/stand [] Unable to read [] Unable to drive [] Unable to eat/drink [] Unable to sleep [] Unable to be with family [] Patient intubated [] Other: Summary Time spent with patient 5 min
--- NOTE | 2023-09-14 10:11 | PM.DCS ---
Discharge Providers Date of Admission: 09/11/23 08:20 Date of Discharge: September 14, 2023 Attending Provider at Admission: Yovani Fernandez Attending Provider at Discharge: Rikki Meredith MD Primary Care Provider: Elizabeth Gagnon MD Diagnoses at Discharge Discharge Diagnosis (1) Acute blood loss anemia: Status: Acute (2) COPD exacerbation: Status: Acute (3) GI bleeding: Status: Acute (4) Hyponatremia: Status: Acute (5) Acute encephalopathy: Status: Acute Reason for Visit Reason for Visit: back pain Brief History: History as per HPI: 58-year-old gentleman with EtOH use disorder, congestive heart failure, anemia, liver cirrhosis, lumbar radiculopathy, COPD, hypothyroidism, presents to ER due to difficulties with ambulation, falling, in ER found to have severe anemia, hemoglobin 5.7, lactic acid 4.5. Magnesium 1.6. Calcium 7.9. T. bili 2.5, with chronic elevation, AST 107, CK 1457. Baseline troponin mildly elevated in the 30s. NT-proBNP 615. Lipase WNL. UA unremarkable. EtOH 30 mg/dL, negative salicylates and acetaminophen. Rapid flu and influenza negative. CT abdomen pelvis with likely cirrhosis with effusions, ascites and trunk edema. Chest x-ray without acute findings. He is somnolent but oriented. Ammonia noted WNL. Hospital Course Hospital Course Patient was admitted to the hospital further evaluation and management of acute metabolic encephalopathy in setting of alcohol intoxication, hyponatremia and acute blood loss anemia. On admission he was found to have a hemoglobin of 5.7 with positive stool for occult blood found in the ER. Overall during hospitalization he required 4 unit of blood transfusion. His hemoglobin remained stable around 8.5. Patient did not have any further bowel movements during hospitalization. Hyponatremia is thought to be in setting of chronic alcohol intake leading to SIADH like behavior. He was started on IV diuresis after which his sodium levels improved and have remained stable over 130. Patient did have mild hypoxia on admission which was thought to be secondary to COPD exacerbation. For possibility of GI bleed patient is asked to follow-up with surgery as an outpatient for endoscopy and colonoscopy. He has been discharged on Protonix twice daily for next 1 month followed by once daily along with Carafate 4 times a day for next 4 weeks. Patient is counseled in detail to hold off on any further alcohol or smoking. He was also counseled in detail about regular inhaler use. He has been discharged on oral steroids for next 5 days. Physical Exam Const: COMMON NORMALS: patient oriented x3 and alert GENERAL APPEARANCE: cooperative NUTRITIONAL APPEARANCE: obese HENMT: COMMON NORMALS: oropharynx normal Neck/C-Spine: COMMON NORMALS: no JVD Resp: COMMON NORMALS: normal respiratory effort and clear to auscultation bilaterally AUSCULTATION: clear to auscultation bilaterally, wheezes and diminished lung sounds Cardio: COMMON NORMALS: no JVD, regular rhythm, S1 normal heart sound present, S2 normal heart sound present and No murmurs present (Cardio) RHYTHM: regular rhythm HEART SOUNDS: S1 normal heart sound present and S2 normal heart sound present GI: COMMON NORMALS: Normal to inspection, nondistended, normoactive bowel sounds present, Soft to palpation and non-tender PALPATION: Yes Soft to palpation OTHER: Large abdomen. Morbidly obese Extremity: COMMON NORMALS: no joint enlargement GENERAL: Yes edema (2+) Neuro: COMMON NORMALS: patient oriented x3 and moves all extremities SENSORIUM/ORIENTATION: Yes alert Skin: COMMON NORMALS: no rashes or lesions noted GENERAL SKIN EXAM: no rashes or lesions noted OTHER: Chronic stasis dermatitis bilateral lower extremities. Urinary Catheter Management: Flores: Cath Placed During This Visit: yes, but has since been removed by the nurse Reason for Continuing Indwelling Catheter: Acute Urinary Retention or Obstruction Urinary Catheter Date of Insertion: 09/11/23 Urinary Catheter Time of Insertion: 13:12 Date Urinary Catheter Removed: 09/14/23 Time Urinary Catheter Discontinued: 06:00 Discharge Data Studies Completed and Pending Completed Studies During Hospitalization Category Date Time Status CT abdomen pelvis wo con [id number] Stat Cat Scan 09/11/23 07:[address] head wo con* [id number] Routine Cat Scan 09/13/23 11:[address] head wo con* [id number] Stat Cat Scan 09/11/23 13:50 Completed XR chest 1V portable [id number] Stat Exams 09/11/23 06:27 Completed Pending at discharge Category Date Time Status Blood Cultures ([facility]) Routine Lab 09/11/23 08:25 Results Blood Cultures ([facility]) Routine Lab 09/11/23 08:30 Results Fibrinogen Degradation Product Routine Lab 09/12/23 22:43 Received MAG [Magnesium] AM LABS Lab 09/15/23 04:00 Ordered MAG [Magnesium] AM LABS Lab 09/16/23 04:00 Ordered Radiology Impressions Chest X-Ray 09/11/23 06:27 IMPRESSION: No acute findings. Abdomen/Pelvis CT 09/11/23 07:18 IMPRESSION: Likely cirrhosis with effusions, ascites, and trunk edema. Head CT 09/13/23 11:08 IMPRESSION: No acute intracranial abnormality. Laboratory Results WBC 5.34 10^3/uL (3.29-11.43) 09/14/23 04:14 RBC 3.44 10^6/uL (3.85-5.65) L 09/14/23 04:14 Hgb 8.50 g/dL (11.27-16.99) L 09/14/23 04:14 Hct 28.1 % (37-53) L 09/14/23 04:14 MCV 81.7 fl (82-101) L 09/14/23 04:14 MCH 24.7 pg (27-33) L 09/14/23 04:14 MCHC 30.2 g/dL (30-55) 09/14/23 04:14 RDW 21.0 % (12.1-15.1) H 09/14/23 04:14 Plt Count 98 10^3/cmm (157-399) L 09/14/23 04:14 MPV 9.1 fL (7.4-10.4) 09/14/23 04:14 Neut % (Auto) 74.9 % 09/14/23 04:14 Lymph % (Auto) 16.3 % 09/14/23 04:14 [place] % (Auto) 7.9 % 09/14/23 04:14 Eos % (Auto) 0.2 % 09/14/23 04:14 Baso % (Auto) 0.0 % 09/14/23 04:14 Reticulocyte % (Auto) 4.2 % (0.5-2.0) H 09/12/23 22:35 Neut # (Auto) 4.00 10^3/uL (1.8-7.7) 09/14/23 04:14 Lymph # (Auto) 0.9 10^3/uL (0.8-4.8) 09/14/23 04:14 [place] # (Auto) 0.4 10^3/uL (0.2-0.9) 09/14/23 04:14 Eos # (Auto) 0.0 10^3/uL (0.0-0.8) 09/14/23 04:14 Baso # (Auto) 0.0 10^3/uL (0.0-0.1) 09/14/23 04:14 Nucleated RBC % (auto) 0 % 09/14/23 04:14 Nucleated RBCs # 0.0 /100WBC 09/14/23 04:14 Peripher Smr Path Cons Sent for review 09/12/23 21:49 Retic Production Index 2.98 09/12/23 22:35 Haptoglobin 48.0 mg/L (30-200) 09/12/23 22:35 PT 20.70 SECONDS (12.1-14.9) H 09/12/23 22:35 INR 1.72 (0.8-1.2) H 09/12/23 22:35 APTT 38.0 SECONDS (23.9-36.7) H 09/12/23 22:35 Fibrinogen 104 mg/dL (174-498) L 09/12/23 22:35 D-Dimer 2.69 ug/mLFEU (0-0.59) H 09/12/23 22:35 Specimen Type Arterial 09/11/23 07:37 Sample Site Radial, left 09/11/23 07:37 ABG pH 7.40 (7.35-7.45) 09/11/23 07:37 ABG pCO2 46.6 mmHg (35-45) H 09/11/23 07:37 ABG pO2 68.0 mmHg (80.0-100.0) L 09/11/23 07:37 ABG HCO3 28.5 mmol/L (22-26) H 09/11/23 07:37 ABG O2 Saturation 94.5 09/11/23 07:37 ABG Base Excess 3.3 mmol/L (-2.0-2.0) H 09/11/23 07:37 Ward Test Pos 09/11/23 07:37 A-a O2 Gradient 3.0 mmHg (5-10) L 09/11/23 07:37 Hematocrit 17.6 % (42-52) L 09/11/23 07:37 Hgb O2 Saturation 90.5 % (95-100) L 09/11/23 07:37 Carboxyhemoglobin 3.6 %THgb (0.4-20.1) 09/11/23 07:37 Methemoglobin 0.7 % (0.4-1.5) 09/11/23 07:37 Total Hemoglobin 5.7 g/dL (14-18) L 09/11/23 07:37 Sodium 119.0 mmol/L (131-143) L 09/11/23 07:37 Potassium 4.6 mmol/L (3.5-5.0) 09/11/23 07:37 Glucose 134.0 mg/dL (70-115) H 09/11/23 07:37 Ionized Calcium 1.1 mmol/L (1.1-1.4) 09/11/23 07:37 O2 Delivery Device Nc 09/11/23 07:37 O2 Liters/Min 1.5 % 09/11/23 07:37 Exhaust And Muffler F[employer] ID [place] 09/11/23 07:37 Sodium 130 mmol/L (136-145) L 09/14/23 04:14 Potassium 4.0 mmol/L (3.5-5.1) 09/14/23 04:14 Chloride 91 mmol/L (98-107) L 09/14/23 04:14 Carbon Dioxide 36 mmol/L (22-29) H 09/14/23 04:14 Anion Gap 7.0 (5-19) 09/14/23 04:14 BUN 7 mg/dL (6-20) 09/14/23 04:14 Creatinine 0.5 mg/dL (0.7-1.2) L 09/14/23 04:14 GFR Calculation 171.4 mL/min (90-130) H 09/14/23 04:14 Glucose 163 mg/dL (65-115) H 09/14/23 04:14 POC Glucose 179 mg/dL (70-110) H 09/14/23 03:32 Calculated Osmolality 272 mOsm/kg (285-295) L 09/14/23 04:14 Lactic Acid 4.5 mmol/L (0.5-2.2) H* 09/11/23 06:45 Lactic Acid (Sepsis) 2.2 mmol/L (0.5-2.2) 09/11/23 11:46 Calcium 7.7 mg/dL (8.5-10.5) L 09/14/23 04:14 Magnesium 1.3 mg/dL (1.7-2.3) L 09/14/23 04:14 Iron 19 ug/dL (59-158) L 09/12/23 22:35 TIBC 276 mcg/dl 09/12/23 22:35 % Saturation 6.8 % (20-50) L 09/12/23 22:35 Unsat Iron Binding 257 ug/dL (112-347) 09/12/23 22:35 Ferritin 211 ng/mL (30-400) 09/12/23 22:35 Total Bilirubin 2.6 mg/dL (0.15-1.2) H 09/14/23 04:14 AST 70 U/L (0-40) H 09/14/23 04:14 ALT 36 U/L (0-41) 09/14/23 04:14 Alkaline Phosphatase 81 U/L (40-130) 09/14/23 04:14 Ammonia 53 umol/L (16-60) 09/11/23 06:45 Lactate Dehydrogenase 255 U/L (135-225) H 09/12/23 22:35 Creatine Kinase 1457 U/L (39-308) H* 09/11/23 06:45 Troponin T Baseline 31 ng/L (0-15) H 09/11/23 06:45 Troponin T 120 Minute 33.07 ng/L (0-15) H 09/11/23 08:25 Delta Troponin T 2.07 ABS# (0-10) 09/11/23 08:25 Troponin T Hi Sens 6Hr 35.25 ng/L (0-15) H 09/11/23 12:57 Troponin T Hi Sens 6Hr Delta 4.25 ng/L (0-12) 09/11/23 12:57 NT-Pro-B Natriuret Pep 615 pg/mL (0-125) H 09/11/23 06:45 Total Protein 6.8 g/dL (6.6-8.7) 09/14/23 04:14 Albumin 2.2 g/dL (3.5-5.2) L 09/14/23 04:14 Globulin 4.6 g/dL (1.3-4.6) 09/14/23 04:14 Lipase 58 U/L (13-60) 09/11/23 06:45 Vitamin B12 1188 pg/mL (232-1245) 09/13/23 04:17 Folate 13.9 ng/mL (4.5-32.2) 09/14/23 04:14 Urine Color Yellow (Yellow) 09/11/23 08:22 Urine Appearance Clear (CLEAR) 09/11/23 08:22 Urine pH 5 (5-7) 09/11/23 08:22 Ur Specific [place] 1.010 (1.005-1.030) 09/11/23 08:22 Urine Protein Neg (Negative) 09/11/23 08:22 Urine Glucose (UA) Norm (Normal) 09/11/23 08:22 Urine Ketones Negative (Negative) 09/11/23 08:22 Urine Blood Neg (Negative) 09/11/23 08:22 Urine Nitrate Negative (Negative) 09/11/23 08:22 Urine Bilirubin Neg (Negative) 09/11/23 08:22 Urine Urobilinogen 1 mg/dL (Negative) H 09/11/23 08:22 Ur Leukocyte Esterase Negative (Negative) 09/11/23 08:22 Salicylates < 0.3 mg/dL (3-10) L 09/11/23 06:45 Acetaminophen < 5.0 ug/mL (10-30) L 09/11/23 06:45 Ethyl Alcohol 30 mg/dL (0-10) H 09/11/23 06:45 Coronavirus 229E (PCR) Not detected (NOT DETECT) 09/11/23 06:41 Influenza Type A Ag negative (Negative) 09/11/23 06:41 Influenza Type B Ag negative (Negative) 09/11/23 06:41 SARS-CoV-2 (PCR) Not detected (NOT DETECT) 09/11/23 06:41 Blood Type O Negative 09/11/23 07:03 Rho(D) Type Negative 09/11/23 07:03 Antibody Screen Negative 09/11/23 07:03 Crossmatch See Detail 09/11/23 07:03 Vitals Last Vital Signs Temp 98.4 F 09/14/23 07:38 Pulse 83 09/14/23 07:38 Resp 18 09/14/23 07:38 BP 110/61 09/14/23 07:38 Pulse Ox 90 09/14/23 09:27 O2 Del Method Room Air 09/14/23 09:27 O2 Flow Rate 2 09/14/23 08:04 Discharge Plan Discharge Patient Disposition: Home Condition: Stable Prescriptions: New sucralfate 1 gram Tablet 1 g PO AC&BEDTIME 28 Days Qty: 120 0RF prednisone 20 mg Tablet 40 mg PO DAILY 5 Days Qty: 10 0RF Breo Ellipta 100-25 mcg/dose blister with device 1 inh inhalation DAILY Qty: 60 0RF Continued levothyroxine [Euthyrox] 50 mcg tablet 50 mcg PO QAM folic acid 1 mg Tablet 1 mg PO DAILY Qty: 60 0RF thiamine mononitrate (vit B1) [Vitamin B-1 (mononitrate)] 100 mg Tablet 100 mg PO DAILY Qty: 60 0RF potassium chloride 10 mEq tablet extended release 10 meq PO BID lidocaine 5 % adhesive patch,medicated See Rx Instructions .ROUTE .COMPLEX Rx Instructions: apply one patch transdermally as directed ON FOR 12H OFF FOR 12 HR as needed trazodone 50 mg Tablet 150 mg PO BEDTIME Changed furosemide 40 mg tablet 40 mg PO DAILY Qty: 10 0RF metformin 500 mg tablet 500 mg PO BIDWMEAL Qty: 60 0RF pantoprazole 40 mg tablet,delayed release (DR/EC) 40 mg PO BIDWMEAL 30 Days Qty: 60 0RF Discharge Orders: Discharge Order (Routine); Ordered 09/14/23 Ordered By: Rikki Meredith Other Ambulatory Orders: DME: Oxygen (Order) Location: None Selected Ordered By: Rikki Meredith Referrals: Jay Fraser DO [Physician] - 09/28/23 1:00 pm (Egd, colonoscopy ) Elizabeth Gagnon MD [Primary Care Provider] - 09/20/23 10:15 am Discharge Diet: As Directed Discharge Activity: Resume usual activity and Increase activity as tolerated Patient Instructions: Sucralfate (By mouth), Prednisone (By mouth), Fluticasone/Vilanterol (By breathing), Using Oxygen at Home (GEN), COPD (Chronic Obstructive Pulmonary Disease) (GEN), COPD Stoplight, Opioid Safety Activity Restrictions/Additional Instructions: Take Protonix twice daily for next 4 weeks followed by once daily. Take Carafate 4 times a day for the next 4 weeks. Please try to quit smoking and alcohol completely. Take prednisone which is the steroid for next 5 days. Take Breo Ellipta which is the inhaler for nebulization once daily going forward. You should follow-up with a primary care provider within next 1 week for repeat CBC and with surgical team within next 2 weeks for endoscopy and colonoscopy. Discharge Attestations Time Spent in Discharge Care*: greater than 30 min Specific Discharge Activities: educating patient, educating and/or supporting family/caregiver, discussing with pcp/other providers, discussing with insurance case manager/social workers/dc planners, documenting/other paperwork and evaluating patient/reviewing data Time Spent in Smoking Cessation: more than 10 minutes Status at Discharge: Behavioral status at discharge: cooperative, Functional status at discharge: independent ambulation, Overall status at discharge: patient is back to baseline Quality Metrics Clinical Quality Measures [ No reported AMI, CVA or VTE this stay] Coding Level of Care Code 87262 Total time (in minutes) for Discharge: 60 Diagnoses Acute blood loss anemia D62 COPD exacerbation J44.1 GI bleeding K92.2 Hyponatremia E87.1 Acute encephalopathy G93.40
[2023-09-14 11:27] LABS: Glucose Point of Care 176 mg/dL (70-110)
--- NOTE | 2023-09-14 16:00 | PC.NURSE ---
Discharge Note Patient discharged to home via private vehicle accompanied by mother. Discharge instructions reviewed with patient and/or medical detail representative. Mobile pharmacy medications and/or prescriptions provided. Belongings/home medications returned.
[2023-09-23 08:40] LABS: Fibrinogen Degradation Product 10 mcg/mL (LESS THAN 5)
== END 2023-09-14 14:45 | disposition home or self-care (01) | DRG 70 ==
LOC: ER 08:28 → ICU 14:10 → MEDSURG 09-12 23:17
PROVIDERS: Admitting Provider Internal Medicine; Emergency Provider Family Medicine; PCP Family Medicine; Visit Provider Student in an Organized Health Care Education/Training Program
DX: G93.41 Metabolic encephalopathy (principal); J96.21 Acute and chronic respiratory failure with hypoxia; E87.1 Hypo-osmolality and hyponatremia; K92.2 Gastrointestinal hemorrhage, unspecified; E87.20 Acidosis, unspecified; M62.82 Rhabdomyolysis; D62 Acute posthemorrhagic anemia; J44.1 Chronic obstructive pulmonary disease with (acute) exacerbation; E83.42 Hypomagnesemia; G47.30 Sleep apnea, unspecified; E87.6 Hypokalemia; D69.6 Thrombocytopenia, unspecified; F17.210 Nicotine dependence, cigarettes, uncomplicated; Z98.1 Arthrodesis status; E03.9 Hypothyroidism, unspecified; M54.16 Radiculopathy, lumbar region; K70.31 Alcoholic cirrhosis of liver with ascites; F10.229 Alcohol dependence with intoxication, unspecified; I50.9 Heart failure, unspecified; Y90.1 Blood alcohol level of 20-39 mg/100 ml; R29.6 Repeated falls
CPT/HCPCS: 36415; 36416; 36430; 36600; 51702; 70450; 71045; 74176; 80051; 80053; 80307; 80503; 81003; 82140; 82330; 82550; 82607; 82728; 82746; 82805; 82962; 83010; 83540; 83550; 83605; 83615; 83690; 83735; 83880; 84295; 84484; 85014; 85018; 85025; 85045; 85362; 85378; 85384; 85610; 85730; 86850; 86900; 86920; 87040; 87635; 87804; 93005; 94640; 94660; 94760; 96365; 96372; 96374; 96375; 96376; 97116; 97163; 99284; 99291; 99292; C9113; J0696; J1100; J1200; J1815; J1885; J1940; J2270; J2360; J2920; J3411; J3430; J3475; J7030; J7512; J7626; P9016; Q3014

== ENCOUNTER 2023-10-20 10:24 | Inpatient (IN) | payer MEDICARE, OTHER, MEDICAID, SELFPAY ==
[2023-10-20] VITALS (11 sets, daily range): BP systolic 120–142; BP diastolic 55–82; PULSE 82–101; RESP 16–20; TEMP 36.8–37.8; O2SAT 90–97; BMI 47.6; BMI 47.5
--- NOTE | 2023-10-20 10:57 | XRR_ITS ---
PROCEDURE INFORMATION: Exam: XR Chest Exam date and time: 10/20/2023 12:25 PM Age: 58 years old Clinical indication: Cough and dyspnea; Additional info: Dyspnea/cough TECHNIQUE: Imaging protocol: Radiologic exam of the chest. Views: 1 view. COMPARISON: CR (CHEST, ) 09/11/2023 6:46 AM FINDINGS: Lungs: Unremarkable. No consolidation. Pleural spaces: Unremarkable. No pleural effusion. No pneumothorax. Heart/Mediastinum: Unremarkable. No cardiomegaly. Bones/joints: Unremarkable. XR/XR chest 1V portable [id number] IMPRESSION: No acute findings.
--- NOTE | 2023-10-20 10:59 | ED_ITS ---
HPI - General Adult 2 General: Chief complaint: General Medical Stated complaint: Swelling Time Seen by Provider: 10/20/23 10:32 Source: patient Mode of arrival: ambulatory History of Present Illness: 58-year-old male with history of alcohol ic liver cirrhosis COPD congestive heart failure lumbar radiculopathy presents emergency room with significant swelling and some excoriations of his right upper thigh as well. He was hospitalized in early September at the time of discharge he states he feels up still felt like he was fluid overloaded. He is on Lasix 40 mg daily states he has been continue to take that he is also on metformin 500 twice daily. He said problems lactic acidosis in the past. He denies any chest pain he does have some orthopnea. He notes significant swelling to the scrotum as well as the abdominal wall. He denies any recent paracentesis no fever sweats chills no chest pain Onset (ago): week(s) Severity: mild Relieving factors: none Exacerbating factors: none Associated symptoms: Reports dyspnea, malaise, short of breath and weakness; Deny chest pain, confusion, cough, diaphoresis, decreased appetite, fevers/chills, headache(s), nausea, rash, palpitations, seizures, syncope or vomiting Treatments prior to arrival: none Review of Systems 2 Const: Reports: malaise; Denies: fever(s), chills or diaphoresis Card: Reports: edema and swelling of feet/ankles; Denies: chest pain, palpitations or syncope Resp: Reports: dyspnea GI: Denies: abdominal pain, nausea or vomiting : Denies: flank pain, dysuria, urinary frequency or urinary urgency Musc: Reports: back pain; Denies: neck pain Skin/Breast: Denies: rash Neuro: Denies: headache(s) or confusion PFSH ED 2 PFSH: Medical History Congestive heart failure Anemia Ascites Liver cirrhosis Lumbar radiculopathy, chronic Hypothyroid Alcoholism COPD (chronic obstructive pulmonary disease) Surgical History S/P laminectomy with spinal fusion Family History Father CAD (coronary artery disease) Social History Smoking and tobacco/nicotine status: current every day tobacco/nicotine user Alcohol intake: current Alcohol intake frequency: 3 or more drinks per day Substance/Drug Use: current Physical Exam 2 Const: GENERAL APPEARANCE: cooperative and comfortable NUTRITIONAL APPEARANCE: obese ORIENTATION/CONSCIOUSNESS: Yes awake, Yes oriented to person, Yes oriented to place and Yes oriented to time HENMT: COMMON NORMALS: normocephalic, atraumatic and hearing grossly normal bilaterally HEAD & SCALP: normocephalic and atraumatic Resp: COMMON NORMALS: normal respiratory effort, No retractions and No use of accessory muscles AUSCULTATION: crackles and diminished lung sounds Cardio: COMMON NORMALS: regular rate, regular rhythm and No murmurs present (Cardio) RATE: regular rate RHYTHM: regular rhythm GI: INSPECTION: Yes Abdominal wall edema, Yes Anasarca, Yes abdominal distension, Yes central obesity and Yes Fluid wave present AUSCULTATION: Yes normoactive bowel sounds PALPATION: No Tenderness to palpation present (GI) and No Guarding due to palpation present (GI) PERCUSSION: Fluid wave present Extremity: GENERAL: Yes edema OTHER: Scattered excoriations on the right upper thigh mild localized erythema Presacral edema Neuro: SENSORIUM/ORIENTATION: Yes oriented to person, Yes oriented to place and Yes oriented to time Psych: ATTITUDE: Yes agitated, Yes aggressive and Yes hostile Skin: COMMON NORMALS: no rashes or lesions noted GENERAL SKIN EXAM: no rashes or lesions noted Course 2 Vital Signs: Vital signs: Vital Signs Temperature 98.2 F 10/20/23 10:57 Pulse Rate 84 10/20/23 12:40 Respiratory Rate 18 10/20/23 12:40 Blood Pressure 142/82 10/20/23 10:32 Pulse Oximetry 90 10/20/23 12:40 Oxygen Delivery Me thod Nasal Cannula 10/20/23 12:40 MDM - General Adult Medical Decision Making Multiple issues Patient is fluid overloaded likely due to liver cirrhosis and diastolic heart failure he has had lactic acidosis in the past previously was on metformin which has been stopped. Questionable cellulitis with possible bowel zoster on the right leg. Discussed with Dr. Michel she started antibiotics. Patient does not have an elevated white count no fever no other signs meeting criteria for sepsis. Because lactic acidosis is secondary to other causes. Will admit he has been given Lasix here he is also been given pain medications. Ultrasound the abdomen did not show significant ascites. Medical Records I reviewed the patient's medical records. Lab Data I reviewed the patient's lab results. 10/20/23 11:25 10/20/23 11:25 Radiology Impressions Chest X-Ray 10/20/23 10:57 IMPRESSION: No acute findings. Laboratory Results WBC 5.22 10^3/uL (3.29-11.43) 10/20/23 11:25 RBC 3.62 10^6/uL (3.85-5.65) L 10/20/23 11:25 Hgb 8.80 g/dL (11.27-16.99) L 10/20/23 11: Hct 28.9 % (37-53) L 10/20/23 11: MCV 79.8 fl (82-101) L 10/20/23 11: MCH 24.3 pg (27-33) L 10/20/23 11: MCHC 30.4 g/dL (30-55) 10/20/23 11:25 RDW 22.0 % (12.1-15.1) H 10/20/23 11: Plt Count 127 10^3/cmm (157-399) L 10/20/23 11: MPV 9.0 fL (7.4-10.4) 10/20/23 11: Neut % (Auto) 47.0 % 10/20/23 11: Lymph % (Auto) 41.6 % 10/20/23 11:25 [place] % (Auto) 9.6 % 10/20/23 11:25 Eos % (Auto) 0.8 % 10/20/23 11:25 Baso % (Auto) 0.8 % 10/20/23 11:25 Neut # (Auto) 2.46 10^3/uL (1.8-7.7) 10/20/23 11: Lymph # (Auto) 2.2 10^3/uL (0.8-4.8) 10/20/23 11:25 [place] # (Auto) 0.5 10^3/uL (0.2-0.9) 10/20/23 11:25 Eos # (Auto) 0.0 10^3/uL (0.0-0.8) 10/20/23 11:25 Baso # (Auto) 0.0 10^3/uL (0.0-0.1) 10/20/23 11:25 Nucleated RBC % (auto) 0 % 10/20/23 11:25 Nucleated RBCs # 0.0 /100WBC 10/20/23 11:25 ESR 57 mm/hr (0-10) H 10/20/23 11:25 PT 21.70 SECONDS (12.1-14.9) H 10/20/23 11:25 INR 1.82 (0.8-1.2) H 10/20/23 11:25 APTT 48.4 SECONDS (23.9-36.7) H 10/20/23 11:25 Sodium 129 mmol/L (136-145) L 10/20/23 11:25 Potassium 4.4 mmol/L (3.5-5.1) 10/20/23 11:25 Chloride 94 mmol/L (98-107) L 10/20/23 11:25 Carbon Dioxide 28 mmol/L (22-29) 10/20/23 11:25 Anion Gap 11.4 (5-19) 10/20/23 11:25 BUN 3 mg/dL (6-20) L 10/20/23 11:25 Creatinine 0.5 mg/dL (0.7-1.2) L 10/20/23 11:25 GFR Calculation 171.4 mL/min (90-130) H 10/20/23 11:25 Glucose 104 mg/dL (65-115) 10/20/23 11:25 Calculated Osmolality 265 mOsm/kg (285-295) L 10/20/23 11:25 Lactic Acid 3.0 mmol/L (0.5-2.2) H 10/20/23 11:25 Lactic Acid (Sepsis) 2.4 mmol/L (0.5-2.2) H 10/20/23 14:27 Calcium 7.5 mg/dL (8.5-10.5) L 10/20/23 11:25 Magnesium 1.3 mg/dL (1.7-2.3) L 10/20/23 11:25 Total Bilirubin 2.0 mg/dL (0.15-1.2) H 10/20/23 11:25 AST 54 U/L (0-40) H 10/20/23 11:25 ALT 17 U/L (0-41) 10/20/23 11:25 Alkaline Phosphatase 160 U/L (40-130) H 10/20/23 11:25 Ammonia 44 umol/L (16-60) 10/20/23 11:40 Total Protein 7.5 g/dL (6.6-8.7) 10/20/23 11:25 Albumin 2.0 g/dL (3.5-5.2) L 10/20/23 11:25 Globulin 5.5 g/dL (1.3-4.6) H 10/20/23 11:25 Lipase 66 U/L (13-60) H 10/20/23 11:25 Urine Color Dark yellow (Yellow) 10/20/23 12:47 Urine Appearance Clear (CLEAR) 10/20/23 12:47 Urine pH 6 (5-7) 10/20/23 12:47 Ur Specific [place] 1.015 (1.005-1.030) 10/20/23 12:47 Urine Protein Neg (Negative) 10/20/23 12:47 Urine Glucose (UA) Norm (Normal) 10/20/23 12:47 Urine Ketones Negative (Negative) 10/20/23 12:47 Urine Blood Neg (Negative) 10/20/23 12:47 Urine Nitrate Negative (Negative) 10/20/23 12:47 Urine Bilirubin Neg (Negative) 10/20/23 12:47 Urine Urobilinogen 1 mg/dL (Negative) H 10/20/23 12:47 Ur Leukocyte Esterase Negative (Negative) 10/20/23 12:47 Ethyl Alcohol 21 mg/dL (0-10) H 10/20/23 11:25 Serum Ketones Negative (Negative) 10/20/23 11:25 All radiology interpretation(s) finalized by discharge Discharge Plan Discharge Patient Disposition: Admitted As Inpatient Admit Provider: Nahid Georges Clinical Impression: Hyponatremia, Anemia, Thrombocytopenia, Alcoholism, Alcoholic cirrhosis of liver, Acidosis, lactic, Fluid overload, Cellulitis, Shingles, Diastolic CHF, Obesity Condition: Stable Coding Level of Care Code ED Colon Therapist for Carlos Enrique Merritt
--- NOTE | 2023-10-20 11:34 | PC.PHAR ---
pt states he takes care of his own medications-pt states he has a breo ellipta one puff daily filled on 09/14/23 but states he doesnt use it-pt states still takes folic acid 1mg daily rx bottle brought in dated 05/06/23 90ds pt states sometimes forgets to take-pt states he takes lasix 40mg daily rx written 09/14/23 ext shows last filled 09/15/23 30d/s 80mg daily-pt states he takes levothyroxine 50mcg daily rx bottle dated 05/13/23 90d/s-pt has rx filled on 09/15/23 90d/s 500mg daily and rx written 500mg bid pt states he has never taken metformin states he drinks and was told it would lower his bs if he took metformin with drinking-pt states he takes pantoprazole 40mg daily rx filled 10/11/23 30d/s 40mg bid-ext shows kcl 10meq bid filled 06/24/23 30d/s pt states he takes 10meq daily-pt states he takes trazodone 50mg tabs takes 4 tabs (200mg) hs ext shows last filled 09/20/23 90d/s 150mg hs prn-notes are made in the pharmacy comments
[2023-10-20] MEDS: orphenadrine 30 mg/mL Inj 2 mL 60 MG IM (11:45)
[2023-10-20 11:53] LABS: Basophils % 0.8 %; Eosinophils % 0.8 %; Hematocrit 28.9 % (37-53); Lymphocytes # 2.2 10^3/uL (0.8-4.8); Lymphocytes % 41.6 %; Mean Corpuscular HGB Conc 30.4 g/dL (30-55); Mean Corpuscular Hemoglobin 24.3 pg (27-33); Mean Corpuscular Volume 79.8 fl (82-101); Monocytes # 0.5 10^3/uL (0.2-0.9); Monocytes % 9.6 %; Neutrophils # 2.46 10^3/uL (1.8-7.7); Nucleated Red Blood Cells % 0 %; Platelet Count 127 10^3/cmm (157-399); Red Blood Count 3.62 10^6/uL (3.85-5.65); White Blood Count 5.22 10^3/uL (3.29-11.43)
[2023-10-20] MEDS: morphine 4 mg/mL SDV 1 mL 2 MG IVP (11:57)
[2023-10-20 12:06] LABS: INR 1.82 (0.8-1.2)
[2023-10-20 12:07] LABS: Partial Thromboplastin Time 48.4 SECONDS (23.9-36.7)
[2023-10-20 12:13] LABS: Alanine Aminotransferase 17 U/L (0-41); Alcohol Level 21 mg/dL (0-10); Alkaline Phosphatase 160 U/L (40-130); Anion Gap 11.4 (5-19); Aspartate Amino Transferase 54 U/L (0-40); Blood Urea Nitrogen 3 mg/dL (6-20); Calcium 7.5 mg/dL (8.5-10.5); Carbon Dioxide 28 mmol/L (22-29); Chloride 94 mmol/L (98-107); Creatinine Clr Calc Pharmacy 218.6054; Globulin 5.5 g/dL (1.3-4.6); Glomerular Filtration Rate 171.4 mL/min (90-130); Glucose 104 mg/dL (65-115); Lipase 66 U/L (13-60); Magnesium 1.3 mg/dL (1.7-2.3); Osmolality Calculated 265 mOsm/kg (285-295); Potassium 4.4 mmol/L (3.5-5.1); Sodium 129 mmol/L (136-145); Total Protein 7.5 g/dL (6.6-8.7)
[2023-10-20 12:14] LABS: Ammonia 44 umol/L (16-60)
[2023-10-20 12:14] LABS: Ketone (Acetest) Serum Negative (Negative)
[2023-10-20 12:49] LABS: Add Urine Microscopic? NO; Charge for UA Resulting for Rev
[2023-10-20 12:52] LABS: Bilirubin Urine Neg (Negative); Blood Urine Neg (Negative); Glucose Urine UA Norm (Normal); Ketones Urine Negative (Negative); Leukocyte Esterase Urine Negative (Negative); Nitrate Urine Negative (Negative); Protein Urine Neg (Negative); Specific Gravity, Urine 1.015 (1.005-1.030); Urine Appearance Clear (CLEAR); Urine Color Dark Yellow (Yellow); Urobilinogen Urine 1 mg/dL (Negative); pH Urine 6 (5-7)
[2023-10-20 13:33] LABS: Reflex Lactate Order REFLEX LACTIC ORDERD
--- NOTE | 2023-10-20 13:37 | US_ITS ---
WS: [id number] INDICATION: Limited ultrasound for paracentesis. TECHNIQUE: Four-quadrant abdomen ultrasound. FINDINGS: Only minimal amount of abdominal fluid visualized in the 4 quadrants. IMPRESSION: Insufficient fluid for paracentesis. Only very minimal fluid visualized.
--- NOTE | 2023-10-20 14:20 | P.HP_ITS ---
Providers/Chief Complaint 2 Primary Care Provider: Elizabeth Gagnon MD Chief Complaint: Swelling History of Present Illness Eliezer Reynolds is a 58 year old male with a past medical history of diastolic CHF, COPD, history of alcoholism, history of alcoholic liver cirrhosis, history of GI bleed who presents [facility] due to shortness of breath, increased lower extremity edema increased anasarca, developing cellulitis and rash on his right thigh and right buttocks. Patient tells me that he does not drink alcohol, he does not consider beer alcohol, but he did have 2 cans of [place] this morning, he tells me that he normally drinks alcohol on a regular basis, he tells me that he is here in the emergency room as he has been feeling weak fatigued having generalized edema bilateral extremity edema anasarca, no fevers, no chills, no cough but he is developed a rash on his right thigh and right buttocks going down his right leg with surrounding erythema and drainage, denies a history of shingles, does report shortness of breath with exertion, does report abdominal distention has never had a paracentesis he tells me, he denies feeling anxious, denies auditory visual or tactile hallucinations, he tells me that he is in a lot of pain and typically morphine does not help the only thing that helps is Dilaudid Review of Systems 2 Const: Reports: fatigue and malaise; Denies: fever(s) Card: Denies: chest pain Resp: Reports: dyspnea GI: Reports: abdominal pain : Denies: flank pain Skin/Breast: Reports: rash Neuro: Denies: headache(s) Medications/Allergies Home Medications Medication Instructions Recorded Confirmed Last Taken Type levothyroxine 50 mcg tablet 50 mcg PO DAILY@11/18/21 10/20/23 03/30/23 History (Euthyrox) lidocaine 5 % topical patch See Rx Instructions .Route .COMPLEX 02/18/23 10/20/23 02/18/23 History trazodone 50 mg tablet 200 mg PO BEDTIME 02/28/23 10/20/23 Unknown History potassium chloride 10 mEq 10 meq PO DAILY@13 09/11/23 10/20/23 Unknown History tablet,extended release fluticasone furoate 100 1 inh inhalation DAILY #60 ea 09/14/23 10/20/23 Unknown Rx mcg-vilanterol 25 mcg/dose inhalation powder (Breo Ellipta) folic acid 1 mg tablet 1 mg PO DAILY@10/20/23 10/20/23 Unknown History furosemide 40 mg tablet 40 mg PO DAILY@10/20/23 10/20/23 Unknown History pantoprazole 40 mg tablet,delayed 40 mg PO DAILY@10/20/23 10/20/23 Unknown History release Allergies Allergy/AdvReac Type Severity Reaction Status Date / Time azithromycin Allergy ALGY-Anaphy Verified 10/20/23 11:25 laxis Penicillins Allergy Unknown Verified 09/11/23 08:47 PFSH Acute 2 PFSH: Medical History Congestive heart failure Anemia Ascites Liver cirrhosis Lumbar radiculopathy, chronic Hypothyroid Alcoholism COPD (chronic obstructive pulmonary disease) Surgical History S/P laminectomy with spinal fusion Family History Father CAD (coronary artery disease) Social History Smoking and tobacco/nicotine status: current every day tobacco/nicotine user Alcohol intake: current Alcohol intake frequency: 3 or more drinks per day Substance/Drug Use: current Vitals/I&O/Wt Last Vital Signs Temp 98.2 F 10/20/23 10:57 Pulse 84 10/20/23 12:40 Resp 18 10/20/23 12:40 BP 142/82 10/20/23 10:32 Pulse Ox 90 10/20/23 12:40 O2 Del Method Nasal Cannula 10/20/23 12:40 Weight last 48 hrs Weight 137.892 kg Physical Exam 2 Const: COMMON NORMALS: no acute distress and patient oriented x3 GENERAL APPEARANCE: disheveled, Edematous and odor of alcohol detected NUTRITIONAL APPEARANCE: obese HENMT: COMMON NORMALS: normocephalic HEAD & SCALP: normocephalic Eye: OTHER: Scleral icterus Neck/C-Spine: COMMON NORMALS: full ROM and no lymphadenopathy Resp: COMMON NORMALS: normal respiratory effort, No retractions, No use of accessory muscles and clear to auscultation bilaterally AUSCULTATION: clear to auscultation bilaterally Cardio: COMMON NORMALS: regular rate, regular rhythm, S1 normal heart sound present and S2 normal heart sound present RATE: regular rate RHYTHM: r egular rhythm HEART SOUNDS: S1 normal heart sound present and S2 normal heart sound present GI: COMMON NORMALS: Soft to palpation and non-tender PALPATION: Yes Soft to palpation OTHER: Abdomen is soft, distended, fluid wave present, no guarding, no rebound, rigidity Extremity: COMMON NORMALS: no pedal edema Neuro: COMMON NORMALS: patient oriented x3, CN's II-XII intact bilaterally and no focal motor deficits OTHER: Generalized anasarca Psych: COMMON NORMALS: mental status grossly normal Skin: NARRATIVE SKIN EXAM: 2+ pitting edema bilateral extremity, ge neralized anasarca ? Right thigh, right hip, right buttocks, multiple open vesiculated lesions, largest measuring 2 x 2 cm irregular borders, with surrounding erythema, purulent drainage Data 10/20/23 11:25 10/20/23 11:25 Micro: Microbiology 10/20/23 11:40 Blood Culture - Preliminary Blood SPECIMEN COLLECTED 10/20/23 11:25 Blood Culture - Preliminary Blood SPECIMEN COLLECTED A&P Assessment and plan (1) Alcohol withdrawal: (2) Hyponatremia: (3) Alcoholic cirrhosis of liver: (4) Hyperbilirubinemia: (5) GI bleeding: (6) Acidosis, lactic: (7) Anemia: (8) Fluid overload: (9) Anasarca: (10) Cellulitis: (11) Shingles: (12) Diastolic CHF: (13) Hypomagnesemia: (14) Congestive heart failure: (15) Fluid retention in tissues: (16) Obesity: Plan Fluid overload, pulm edema, ascites, anasarca -Likely combination of diastolic CHF exacerbation, liver cirrhosis Plan -Start Aldactone 25 mg daily -Will start Lasix 40 mg IV twice daily, with albumin twice daily -Monitor urine output, creatinine Diastolic CHF exacerbation as above Alcoholism, high risk of alcohol withdrawal, last alcohol drink this morning -[facility] protocol -Start scheduled Librium 25 mg every 6 hours Shingles rash -Patient's rash on his right buttocks right thigh, right hip is in a dermatomal fashion, he has a couple vesiculated lesions highly concerning for shingles -Will place on isolation precautions -Start acyclovir Cellulitis, with open wounds, right thigh, right hip, right buttocks -Isolation precautions -Wound care wet-to-dry dressing -Start vancomycin, cefepime Hypomagnesemia, replace electrolytes Elevated lactic acid, monitor Acute on chronic anemia with history of GI bleed monitor Elevated INR, 1.8 to monitor Alcoholic liver cirrhosis -INR 1.82, sodium 129, creatinine 0.5, albumin 2.0, T. bili 2.0, MELD score 16 Abdominal distention, will have paracentesis, order paracentesis studies Chronic pain, alcohol screen, drug screen, Dilaudid 0.2 mg every 4 hours as needed Attestations 2 Medical Necessity Statement*: Patient requires hospitalization, inpatient, greater than 2 midnights, with concerns for alcohol withdrawal, fluid overload anasarca, pulm edema, ascites requiring diuresis, with cellulitis, with shingles, Diagnoses Alcohol withdrawal F10.939 Hyponatremia E87.1 Alcoholic cirrhosis of liver K70.30 Hyperbilirubinemia E80.6 GI bleeding K92.2 Acidosis, lactic E87.20 Anemia D64.9 Fluid overload E87.70 Anasarca R60.1 Cellulitis L03.90 Shingles B02.9 Diastolic CHF I50.30 Hypomagnesemia E83.42 Congestive heart failure I50.9 Fluid retention in tissues R60.9 Obesity E66.9
--- NOTE | 2023-10-20 14:37 | ECG_ITS ---
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 Measurements Intervals [place] Rate: 75 P: 97 UT: 186 QRS: -85 QRSD: 110 T: 81 QT: 404 QTc: 452 Interpretive Statements SINUS RHYTHM INCOMPLETE RIGHT BUNDLE BRANCH BLOCK [90+ ms QRS DURATION, TERMINAL R IN V1/V2, 40+ ms S IN I/aVL/V4/V5/V6] LEFT ANTERIOR FASCICULAR BLOCK [QRS AXIS <= -45, QR IN I, RS IN II] Compared to ECG 09/11/2023 08:33:24 Incomplete right bundle-branch block now present Electronically Signed On 10-20-2023 15:45:22 POOL HALL INSPECTOR by Baltazar Michelle M.D. [id number]
[2023-10-20 14:54] LABS: Erythrocyte Sedimentation Rate 57 mm/hr (0-10)
[2023-10-20 14:57] LABS: Lactic Acid level (Lactate) 2.4 mmol/L (0.5-2.2)
--- NOTE | 2023-10-20 14:59 | PC.PHAR ---
Frida Initial Dosing Patient Information Sex M M/F Last Name Rodolfo AGE 58 years First Name Eliezer Ht 67 inches : 1965 ABW 134.892 kg Location: [facility] IBW 66.1 kg If loading dose given: DW 93.6187 kg Loading DOSE: 1500 mg SCr 0.5 mg/dl This Dose = 16.0 mg/kg CrCl 152.4 ml/min 1st dose Cmax: 20.0 mcg/ml Vd 70.2126 liters Time elapsed: 8.0 hrs Ke 0.131 hrs-1 Serum Conc. = 7.0 mcg/ml t1/2 5 hrs Hrs until 20 mcg/ml 1.0 hrs Hrs until 15 mcg/ml 3.2 hours Hrs until 10 mcg/ml 6.3 hours Dose Tau (Freq) Levels expected Standard 1500 8 Cmax 29.0 Targets 16.02 7.9 Cpeak 25.4 25 to 40 mg/kg hours Cmin 13.2 10 to 20
[2023-10-20 15:20] LABS: Alcohol Level 25 mg/dL (0-10); C Reactive Protein 5.9 mg/L (0.0-4.9)
[2023-10-20 15:22] LABS: Procalcitonin 0.09 ng/mL (0-0.5)
[2023-10-20 15:24] LABS: Troponin(5th) Baseline 19 ng/L (0-15)
[2023-10-20] MEDS: pantoprazole 40 mg SDV IVP (16:02)
[2023-10-20] MEDS: cefepime 1,000 MG in sodium chloride 0.9% (plus) 50 ML 100 MG IV (16:05)
[2023-10-20] MEDS: chlordiazePOXIDE 25 mg Capsule PO ×2 (16:09→21:38)
[2023-10-20] MEDS: spironolactone 25 mg Tablet PO (16:09)
[2023-10-20] MEDS: FUROsemide 10 mg/mL SDV 4mL 40 MG IVP (16:13)
[2023-10-20] MEDS: HYDROmorphone 1 mg/mL INJ 1 mL 0.200000000000000011 MG IVP ×2 (16:24→21:41)
[2023-10-20] MEDS: vancomycin 1,500 MG/300 ML PIGGYBACK 200 MG IV ×2 (16:37→22:53)
--- NOTE | 2023-10-20 16:37 | ECG_ITS ---
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 Measurements Intervals [place] Rate: 82 P: 79 [place]: 181 QRS: -84 QRSD: 115 T: 76 QT: 379 QTc: 445 Interpretive Statements SINUS RHYTHM LOW QRS VOLTAGE IN PRECORDIAL LEADS [QRS DEFLECTION < 1.0 mV IN CHEST LEADS] LEFT ANTERIOR FASCICULAR BLOCK [QRS AXIS <= -45, QR IN I, RS IN II] POSSIBLE ANTERIOR MYOCARDIAL INFARCTION , PROBABLY OLD [30 ms Q WAVE IN V3/V4, OR R < 0.2 mV IN V4] Compared to ECG 10/20/2023 15:06:36 Low QRS voltage now present Myocardial infarct finding now present Incomplete right bundle-branch block no longer present Electronically Signed On 10-21-2023 12:06:12 FACTORY PROCESS WORKERS by Baltazar Michelle M.D. [id number]
[2023-10-20 17:05] LABS: Amphetamines Screen Urine Negative (Negative); Barbiturates Screen Urine Negative (Negative); Benzodiazepines Screen Urine Negative (Negative); Cocaine Screen Urine Negative (Negative); Opiate Screen Urine Positive (Negative); PCP Screen Urine Negative (Negative); THC Screen Urine Negative (Negative)
[2023-10-20] MEDS: acyclovir 800 mg Tablet PO ×2 (17:13→21:38)
[2023-10-20 17:37] LABS: Glucose Point of Care 95 mg/dL (70-110)
[2023-10-20 17:52] LABS: Troponin 5 2HR 19.34 ng/L (0-15); Troponin 5 2HR Delta 0.34 ABS# (0-10)
[2023-10-20] MEDS: albumin 25 G/100 ML BAG 60 G IV (18:08)
--- NOTE | 2023-10-20 20:37 | ECG_ITS ---
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 Measurements Intervals [place] Rate: 96 P: 74 [place]: 178 QRS: 267 QRSD: 109 T: 61 QT: 364 QTc: 462 Interpretive Statements SINUS RHYTHM RIGHT AXIS DEVIATION [QRS AXIS > 100] LOW QRS VOLTAGE IN EXTREMITY LEADS [QRS DEFLECTION < 0.5 mV IN LIMB LEADS] PATTERN CONSISTENT WITH PULMONARY DISEASE Compared to ECG 10/20/2023 16:00:10 Right-axis deviation now present Left anterior fascicular block no longer present Myocardial infarct finding no longer present Electronically Signed On 10-21-2023 12:06:04 RUBBER TIRE AND TUBES SUPERVISOR by Baltazar Michelle M.D. [id number]
[2023-10-20 21:07] LABS: Glucose Point of Care 133 mg/dL (70-110)
[2023-10-20] MEDS: magnesium sulfate premix 2 GM/50 ML PIGGYBACK IV (21:38)
[2023-10-20] MEDS: trazodone 100 mg Tablet 200 MG PO (21:41)
[2023-10-20 22:26] LABS: Troponin 5 6HR 19.68 ng/L (0-15); Troponin 5 6HR Delta 0.68 ng/L (0-12)
[2023-10-21] VITALS (13 sets, daily range): BP systolic 126–183; BP diastolic 62–114; PULSE 73–104; RESP 14–20; TEMP 36.6–36.9; O2SAT 90–100
[2023-10-21] MEDS: cefepime 1,000 MG in sodium chloride 0.9% (plus) 50 ML 100 MG IV ×2 (03:48→14:47)
[2023-10-21] MEDS: chlordiazePOXIDE 25 mg Capsule PO ×4 (03:49→21:24)
[2023-10-21] MEDS: FUROsemide 10 mg/mL SDV 4mL 40 MG IVP ×2 (03:49→15:33)
[2023-10-21] MEDS: HYDROmorphone 1 mg/mL INJ 1 mL 0.200000000000000011 MG IVP ×4 (04:04→23:22)
[2023-10-21 04:57] LABS: Basophils % 0.8 %; Eosinophils # 0.1 10^3/uL (0.0-0.8); Eosinophils % 1.2 %; Hematocrit 30.3 % (37-53); Lymphocytes # 1.7 10^3/uL (0.8-4.8); Lymphocytes % 33.1 %; Mean Corpuscular Hemoglobin 24.4 pg (27-33); Mean Corpuscular Volume 83.9 fl (82-101); Monocytes # 0.5 10^3/uL (0.2-0.9); Monocytes % 9.9 %; Neutrophils # 2.83 10^3/uL (1.8-7.7); Neutrophils % 54.8 %; Nucleated Red Blood Cells % 0 %; Platelet Count 116 10^3/cmm (157-399); Red Blood Count 3.61 10^6/uL (3.85-5.65); Red Cell Distribution Width 22.5 % (12.1-15.1); White Blood Count 5.16 10^3/uL (3.29-11.43)
[2023-10-21 05:13] LABS: Partial Thromboplastin Time 53.9 SECONDS (23.9-36.7)
[2023-10-21 05:24] LABS: Lactic Sepsis W/Reflex 0.9 mmol/L (0.5-2.2)
[2023-10-21 05:25] LABS: Alanine Aminotransferase 16 U/L (0-41); Albumin Level 2.1 g/dL (3.5-5.2); Alkaline Phosphatase 146 U/L (40-130); Anion Gap 7.8 (5-19); Aspartate Amino Transferase 54 U/L (0-40); Blood Urea Nitrogen 4 mg/dL (6-20); Calcium 7.4 mg/dL (8.5-10.5); Carbon Dioxide 32 mmol/L (22-29); Chloride 95 mmol/L (98-107); Creatinine Clr Calc Pharmacy 181.2651; Globulin 5.5 g/dL (1.3-4.6); Glomerular Filtration Rate 138.9 mL/min (90-130); Glucose 114 mg/dL (65-115); Magnesium 1.4 mg/dL (1.7-2.3); Osmolality Calculated 270 mOsm/kg (285-295); Phosphorus 4.1 mg/dL (2.5-4.5); Potassium 3.8 mmol/L (3.5-5.1); Sodium 131 mmol/L (136-145); Thyroid Stimulating Hormone 2.35 uIU/mL (0.27-4.20); Total Bilirubin 2.3 mg/dL (0.15-1.2); Total Protein 7.6 g/dL (6.6-8.7)
[2023-10-21 05:30] LABS: NT Pro B Type Natriuretic Pept 179 pg/mL (0-125); Procalcitonin 0.13 ng/mL (0-0.5)
[2023-10-21] MEDS: albumin 25 G/100 ML BAG 60 G IV ×2 (05:30→17:44)
[2023-10-21 05:44] LABS: Chol HDL Ratio 1.91 mg/dL (1.0-5.00); Cholesterol 82 mg/dL (0-200); HDL Cholesterol 43 mg/dL (60-100); LDL Cholesterol Calculated 30 mg/dL (50-129); Triglycerides 44 mg/dL (0-150)
[2023-10-21 06:32] LABS: Glucose Point of Care 127 mg/dL (70-110)
[2023-10-21 06:42] LABS: Estmated Average Glucose 123; Hemoglobin A1C 5.9 % (4.0-6.0)
[2023-10-21] MEDS: vancomycin 1,500 MG/300 ML PIGGYBACK 200 MG IV (07:08)
[2023-10-21] MEDS: magnesium sulfate premix 4 GM/100 ML PREMIX IV (08:44)
[2023-10-21] MEDS: acyclovir 800 mg Tablet PO ×4 (08:45→21:24)
[2023-10-21] MEDS: potassium chloride ER 20 mEq Tablet PO (08:45)
[2023-10-21] MEDS: multivitamin therapeutic Tablet 1 TAB PO (08:45)
[2023-10-21] MEDS: thiamine 100 mg Tablet PO (08:45)
[2023-10-21] MEDS: folic acid 1 mg Tablet PO (08:45)
[2023-10-21] MEDS: spironolactone 25 mg Tablet PO (08:46)
[2023-10-21 11:21] LABS: Glucose Point of Care 151 mg/dL (70-110)
[2023-10-21] MEDS: levothyroxine 50 mcg Tablet PO (12:59)
--- NOTE | 2023-10-21 13:28 | P.PN_ITS ---
Subjective 2 Subjective: Patient was seen this morning, denies any fevers, no chills, no cough, he does continue to have complaints of diffuse muscular aches and pains and joint pains, he wants a higher dose of Dilaudid and to be given it more frequently, I discussed with him that I would keep the Dilaudid at the current dose, as I am concerned for possible adverse effects of pain medication, he tells me that morphine does not help, and there is no other pain medication that helps Vitals/I&O/Wt Last Vital Signs Temp 97.9 F 10/21/23 07:35 Pulse 86 10/21/23 10:59 Resp 17 10/21/23 10:59 BP 143/77 10/21/23 10:59 Pulse Ox 98 10/21/23 10:59 O2 Del Method Nasal Cannula 10/21/23 10:59 O2 Flow Rate 5 10/21/23 07:56 10/20/23 10/21/23 10/21/23 22:59 06:59 14:59 Intake Total 1240 / 1240 350 / 1590 980 / 980 Output Total 1200 / 1200 1650 / 2850 1999 / 1999 Balance 40 / 40 -1300 / -1260 -1020 / -1020 Weight last 48 hrs Weight 136.713 kg Weight 137.62 kg Weight 137.892 kg Physical Exam 2 Const: COMMON NORMALS: no acute distress and patient oriented x3 Resp: COMMON NORMALS: normal respiratory effort, No retractions, No use of accessory muscles and clear to auscultation bilaterally AUSCULTATION: clear to auscultation bilaterally Cardio: COMMON NORMALS: regular rate, regular rhythm, S1 normal heart sound present and S2 normal heart sound present RATE: regular rate RHYTHM: r egular rhythm HEART SOUNDS: S1 normal heart sound present and S2 normal heart sound present GI: COMMON NORMALS: Normal to inspection, nondistended, normoactive bowel sounds present and non-tender Extremity: COMMON NORMALS: no calf tenderness Neuro: COMMON NORMALS: patient oriented x3 Psych: COMMON NORMALS: mental status grossly normal Skin: NARRATIVE SKIN EXAM: Anasarca improving, 2+ pitting edema, abdominal distention improving Data 10/21/23 04:25 10/21/23 04:25 Micro: Microbiology 10/20/23 11:40 Blood Culture - Preliminary Blood NEGATIVE TO DATE 10/20/23 11:25 Blood Culture - Preliminary Blood NEGATIVE TO DATE A&P Assessment and plan (1) Alcohol withdrawal: (2) Hyponatremia: (3) Alcoholic cirrhosis of liver: (4) Hyperbilirubinemia: (5) GI bleeding: (6) Acidosis, lactic: (7) Anemia: (8) Fluid overload: (9) Anasarca: (10) Cellulitis: (11) Shingles: (12) Diastolic CHF: (13) Hypomagnesemia: (14) Congestive heart failure: (15) Fluid retention in tissues: (16) Obesity: Plan Fluid overload, pulm edema, ascites, anasarca -Likely combination of diastolic CHF exacerbation, liver cirrhosis Plan -Continue Aldactone 25 mg daily -Continue Lasix 40 mg IV twice daily, with albumin twice daily -Monitor urine output, creatinine Diastolic CHF exacerbation as above Alcoholism, high risk of alcohol withdrawal, last alcohol drink this morning -[facility] protocol - scheduled Librium 25 mg every 6 hours Shingles rash -On examination today, rash has crusted over -Patient's rash on his right buttocks right thigh, right hip is in a dermatomal fashion, he has a couple vesiculated lesions highly concerning for shingles -Will place on isolation precautions -Continue acyclovir Cellulitis, with open wounds, right thigh, right hip, right buttocks -Isolation precautions -Wound care wet-to-dry dressing -Start vancomycin, cefepime Hypomagnesemia, replace electrolytes Elevated lactic acid, monitor Acute on chronic anemia with history of GI bleed monitor Elevated INR, 1.8 to monitor Alcoholic liver cirrhosis -INR 1.82, sodium 129, creatinine 0.5, albumin 2.0, T. bili 2.0, MELD score 16 Abdominal distention, monitor Chronic pain, alcohol screen, drug screen, Dilaudid 0.2 mg every 4 hours as needed Full code SCDs for DVT prophylaxis Anticoagulation such as Lovenox relatively contraindicated given elevated INR Attestations 2 Medical Necessity Statement*: Patient requires hospitalization for fluid overload requiring IV diuresis, shingles rash, cellulitis, electrolyte abnormalities including hypomagnesemia, hyponatremia Diagnoses Alcohol withdrawal F10.939 Hyponatremia E87.1 Alcoholic cirrhosis of liver K70.30 Hyperbilirubinemia E80.6 GI bleeding K92.2 Acidosis, lactic E87.20 Anemia D64.9 Fluid overload E87.70 Anasarca R60.1 Cellulitis L03.90 Shingles B02.9 Diastolic CHF I50.30 Hypomagnesemia E83.42 Congestive heart failure I50.9 Fluid retention in tissues R60.9 Obesity E66.9
[2023-10-21] MEDS: pantoprazole 40 mg SDV IVP (14:46)
[2023-10-21 15:17] LABS: Vancomycin Trough 16.2 ug/mL (10-15)
[2023-10-21] MEDS: vancomycin 1,500 MG/300 ML PIGGYBACK IV ×2 (15:34→23:21)
[2023-10-21 18:01] LABS: Glucose Point of Care 129 mg/dL (70-110)
[2023-10-21 21:15] LABS: Glucose Point of Care 180 mg/dL (70-110)
[2023-10-21] MEDS: trazodone 100 mg Tablet 200 MG PO (21:24)
[2023-10-22] VITALS (13 sets, daily range): BP systolic 96–159; BP diastolic 61–77; PULSE 80–98; RESP 16–24; TEMP 36.5–36.7; O2SAT 90–97; BMI 47.3
[2023-10-22] MEDS: cefepime 1,000 MG in sodium chloride 0.9% (plus) 50 ML 100 MG IV ×2 (02:53→15:40)
[2023-10-22] MEDS: chlordiazePOXIDE 25 mg Capsule PO ×3 (02:54→15:40)
[2023-10-22] MEDS: FUROsemide 10 mg/mL SDV 4mL 40 MG IVP ×2 (03:52→15:41)
[2023-10-22] MEDS: HYDROmorphone 1 mg/mL INJ 1 mL 0.200000000000000011 MG IVP ×3 (03:52→20:45)
[2023-10-22 05:34] LABS: Basophils % 0.9 %; Eosinophils # 0.1 10^3/uL (0.0-0.8); Eosinophils % 1.8 %; Hematocrit 29.5 % (37-53); Lymphocytes # 1.7 10^3/uL (0.8-4.8); Lymphocytes % 37.7 %; Mean Corpuscular HGB Conc 28.1 g/dL (30-55); Mean Corpuscular Hemoglobin 24.3 pg (27-33); Mean Corpuscular Volume 86.5 fl (82-101); Mean Platelet Volume 9.3 fL (7.4-10.4); Monocytes # 0.5 10^3/uL (0.2-0.9); Neutrophils # 2.16 10^3/uL (1.8-7.7); Neutrophils % 48.4 %; Nucleated Red Blood Cells % 0 %; Platelet Count 103 10^3/cmm (157-399); Red Blood Count 3.41 10^6/uL (3.85-5.65); Red Cell Distribution Width 22.5 % (12.1-15.1); White Blood Count 4.46 10^3/uL (3.29-11.43)
[2023-10-22] MEDS: albumin 25 G/100 ML BAG 60 G IV ×2 (05:41→18:24)
[2023-10-22 05:51] LABS: INR 1.87 (0.8-1.2)
[2023-10-22 05:52] LABS: Partial Thromboplastin Time 49.6 SECONDS (23.9-36.7)
[2023-10-22 05:57] LABS: Alanine Aminotransferase 16 U/L (0-41); Albumin Level 2.3 g/dL (3.5-5.2); Alkaline Phosphatase 145 U/L (40-130); Anion Gap 8.9 (5-19); Aspartate Amino Transferase 61 U/L (0-40); Blood Urea Nitrogen 4 mg/dL (6-20); Calcium 7.2 mg/dL (8.5-10.5); Carbon Dioxide 32 mmol/L (22-29); Chloride 93 mmol/L (98-107); Creatinine Clr Calc Pharmacy 181.2651; Globulin 4.7 g/dL (1.3-4.6); Glomerular Filtration Rate 138.9 mL/min (90-130); Glucose 114 mg/dL (65-115); Magnesium 1.5 mg/dL (1.7-2.3); Osmolality Calculated 268 mOsm/kg (285-295); Phosphorus 3.3 mg/dL (2.5-4.5); Potassium 3.9 mmol/L (3.5-5.1); Sodium 130 mmol/L (136-145); Total Bilirubin 2.1 mg/dL (0.15-1.2)
[2023-10-22 06:56] LABS: Glucose Point of Care 129 mg/dL (70-110)
[2023-10-22] MEDS: vancomycin 1,500 MG/300 ML PIGGYBACK 200 MG IV ×3 (07:14→23:32)
[2023-10-22] MEDS: acyclovir 800 mg Tablet PO ×4 (08:47→20:48)
[2023-10-22] MEDS: multivitamin therapeutic Tablet 1 TAB PO (08:47)
[2023-10-22] MEDS: thiamine 100 mg Tablet PO (08:47)
[2023-10-22] MEDS: magnesium sulfate premix 2 GM/50 ML PIGGYBACK IV (08:47)
[2023-10-22] MEDS: metOLazone 5 MG Tablet PO (08:47)
[2023-10-22] MEDS: spironolactone 25 mg Tablet PO (08:47)
[2023-10-22] MEDS: folic acid 1 mg Tablet PO (08:47)
[2023-10-22 11:30] LABS: Glucose Point of Care 142 mg/dL (70-110)
--- NOTE | 2023-10-22 11:37 | PC.SOCIAL ---
IMM Update pg 2 of IMM updated and reviewed w/ patient. Copy provided and copy dated, initialed and placed in chart.
[2023-10-22] MEDS: levothyroxine 50 mcg Tablet PO (13:24)
[2023-10-22] MEDS: pantoprazole 40 mg SDV IVP (15:40)
[2023-10-22 16:26] LABS: Glucose Point of Care 130 mg/dL (70-110)
--- NOTE | 2023-10-22 16:41 | P.PN_ITS ---
Subjective 2 Subjective: Patient was seen this morning, he is alert oriented x 3, following all commands, does report generalized weakness, generalized pain, he tells me his edema is improving, his rash on his right thigh has crusted over Vitals/I&O/Wt Last Vital Signs Temp 97.7 F 10/22/23 15:28 Pulse 85 10/22/23 15:28 Resp 16 10/22/23 15:28 BP 128/77 10/22/23 15:28 Pulse Ox 97 10/22/23 15:28 O2 Del Method Nasal Cannula 10/22/23 15:28 O2 Flow Rate 4 10/22/23 09:11 10/22/23 10/22/23 10/22/23 06:59 14:59 22:59 Intake Total 369.800 / 2099.800 450 / 450 Output Total 1100 / 4450 1999 Balance -730.200 / -2350.200 -1550 / -1550 Weight last 48 hrs Weight 137.166 kg Weight 136.713 kg Physical Exam 2 Const: COMMON NORMALS: no acute distress and patient oriented x3 Neck/C-Spine: COMMON NORMALS: no JVD Resp: COMMON NORMALS: normal respiratory effort, No retractions, No use of accessory muscles and clear to auscultation bilaterally AUSCULTATION: clear to auscultation bilaterally Cardio: COMMON NORMALS: no JVD, regular rate, regular rhythm, S1 normal heart sound present and S2 normal heart sound present RATE: regular rate RHYTHM: regular rhythm HEART SOUNDS: S1 normal heart sound present and S2 normal heart sound present GI: COMMON NORMALS: Normal to inspection, nondistended, normoactive bowel sounds present and non-tender Extremity: NARRATIVE EXTREMITY EXAM: 2+ pitting edema, anasarca, improving Neuro: COMMON NORMALS: patient oriented x3 Psych: COMMON NORMALS: mental status grossly normal Data 10/22/23 05:11 10/22/23 05:11 Micro: Microbiology 10/20/23 11:40 Blood Culture - Preliminary Blood NEGATIVE TO DATE 10/20/23 11:25 Blood Culture - Preliminary Blood NEGATIVE TO DATE A&P Assessment and plan (1) Alcohol withdrawal: (2) Hyponatremia: (3) Alcoholic cirrhosis of liver: (4) Hyperbilirubinemia: (5) GI bleeding: (6) Acidosis, lactic: (7) Anemia: (8) Fluid overload: (9) Anasarca: (10) Cellulitis: (11) Shingles: (12) Diastolic CHF: (13) Hypomagnesemia: (14) Congestive heart failure: (15) Fluid retention in tissues: (16) Obesity: Plan Fluid overload, pulm edema, ascites, anasarca -Likely combination of diastolic CHF exacerbation, liver cirrhosis Plan -Continue Aldactone 25 mg daily -Continue Lasix 40 mg IV twice daily, with albumin twice daily -1 dose of metolazone today --5 L so far -Monitor urine output, creatinine Diastolic CHF exacerbation as above Alcoholism, high risk of alcohol withdrawal, last alcohol drink this morning -[facility] protocol - scheduled Librium 25 every 24 hours Shingles rash -On examination today, rash has crusted over -Patient's rash on his right buttocks right thigh, right hip is in a dermatomal fashion, he has a couple vesiculated lesions highly concerning for shingles -Will place on isolation precautions -Continue acyclovir Cellulitis, with open wounds, right thigh, right hip, right buttocks -Isolation precautions -Wound care wet-to-dry dressing -Continue vancomycin, cefepime Hypomagnesemia, replace electrolytes Elevated lactic acid, monitor Acute on chronic anemia with history of GI bleed monitor Elevated INR, 1.8 to monitor Alcoholic liver cirrhosis -INR 1.82, sodium 129, creatinine 0.5, albumin 2.0, T. bili 2.0, MELD score 16 Abdominal distention, monitor Chronic pain, alcohol screen, drug screen, Dilaudid 0.2 mg every 4 hours as needed Full code SCDs for DVT prophylaxis Anticoagulation such as Lovenox relatively contraindicated given elevated INR Plan for today continue IV Lasix to help fluid overload 1 dose metolazone monitor urine output decrease dosing of Librium, wean as tolerated, continue IV antibiotics, continue acyclovir Attestations 2 Medical Necessity Statement*: Patient requires hospitalization for fluid overload, diastolic CHF cellulitis, shingles rash, alcoholism Diagnoses Alcohol withdrawal F10.939 Hyponatremia E87.1 Alcoholic cirrhosis of liver K70.30 Hyperbilirubinemia E80.6 GI bleeding K92.2 Acidosis, lactic E87.20 Anemia D64.9 Fluid overload E87.70 Anasarca R60.1 Cellulitis L03.90 Shingles B02.9 Diastolic CHF I50.30 Hypomagnesemia E83.42 Congestive heart failure I50.9 Fluid retention in tissues R60.9 Obesity E66.9
[2023-10-22] MEDS: trazodone 100 mg Tablet 200 MG PO (20:49)
[2023-10-22 22:16] LABS: Glucose Point of Care 201 mg/dL (70-110)
[2023-10-23] VITALS (10 sets, daily range): BP systolic 105–157; BP diastolic 65–83; PULSE 66–107; RESP 17–20; TEMP 36.5–37; O2SAT 91–98
[2023-10-23 03:02] LABS: Basophils % 0.6 %; Eosinophils # 0.1 10^3/uL (0.0-0.8); Eosinophils % 1.9 %; Lymphocytes # 2.2 10^3/uL (0.8-4.8); Lymphocytes % 45.1 %; Mean Corpuscular HGB Conc 27.6 g/dL (30-55); Mean Corpuscular Volume 86.8 fl (82-101); Mean Platelet Volume 9.1 fL (7.4-10.4); Monocytes # 0.6 10^3/uL (0.2-0.9); Neutrophils # 1.86 10^3/uL (1.8-7.7); Nucleated Red Blood Cells % 0 %; Platelet Count 100 10^3/cmm (157-399); Red Blood Count 3.34 10^6/uL (3.85-5.65); Red Cell Distribution Width 22.2 % (12.1-15.1); White Blood Count 4.77 10^3/uL (3.29-11.43)
[2023-10-23 03:15] LABS: INR 1.77 (0.8-1.2)
[2023-10-23 03:16] LABS: Partial Thromboplastin Time 53.6 SECONDS (23.9-36.7)
[2023-10-23 03:28] LABS: Alanine Aminotransferase 18 U/L (0-41); Albumin Level 2.6 g/dL (3.5-5.2); Alkaline Phosphatase 130 U/L (40-130); Anion Gap 2.3 (5-19); Aspartate Amino Transferase 61 U/L (0-40); Blood Urea Nitrogen 4 mg/dL (6-20); Calcium 7.8 mg/dL (8.5-10.5); Chloride 91 mmol/L (98-107); Creatinine Clr Calc Pharmacy 217.9359; Globulin 4.8 g/dL (1.3-4.6); Glomerular Filtration Rate 171.4 mL/min (90-130); Glucose 128 mg/dL (65-115); Magnesium 1.4 mg/dL (1.7-2.3); Osmolality Calculated 271 mOsm/kg (285-295); Phosphorus 3.6 mg/dL (2.5-4.5); Potassium 3.3 mmol/L (3.5-5.1); Sodium 131 mmol/L (136-145); Total Bilirubin 1.7 mg/dL (0.15-1.2); Total Protein 7.4 g/dL (6.6-8.7)
[2023-10-23 03:41] LABS: Carbon Dioxide 41 mmol/L (22-29)
[2023-10-23] MEDS: FUROsemide 10 mg/mL SDV 4mL 40 MG IVP (03:49)
[2023-10-23] MEDS: cefepime 1,000 MG in sodium chloride 0.9% (plus) 50 ML 100 MG IV (03:49)
[2023-10-23] MEDS: albumin 25 G/100 ML BAG 60 G IV ×2 (05:39→17:24)
[2023-10-23] MEDS: HYDROmorphone 1 mg/mL INJ 1 mL 0.200000000000000011 MG IVP ×2 (05:40→15:45)
[2023-10-23 06:50] LABS: Glucose Point of Care 140 mg/dL (70-110)
[2023-10-23] MEDS: acyclovir 800 mg Tablet PO ×4 (08:23→21:05)
[2023-10-23] MEDS: multivitamin therapeutic Tablet 1 TAB PO (08:24)
[2023-10-23] MEDS: folic acid 1 mg Tablet PO (08:24)
[2023-10-23] MEDS: thiamine 100 mg Tablet PO (08:24)
[2023-10-23] MEDS: spironolactone 25 mg Tablet PO (08:24)
[2023-10-23] MEDS: potassium chloride ER 20 mEq Tablet 40 MEQ PO (10:06)
[2023-10-23] MEDS: vancomycin 1,500 MG/300 ML PIGGYBACK 200 MG IV (10:08)
[2023-10-23 11:14] LABS: Ammonia 106 umol/L (16-60)
[2023-10-23 11:50] LABS: Glucose Point of Care 162 mg/dL (70-110)
--- NOTE | 2023-10-23 13:59 | PM.PN ---
Subjective Subjective: Patient was seen this morning, sitting up in a chair, denies any fevers, chills, he dropped his phone on the floor and he wants me to help him pick it up, he also spilled his Coke on the ground, denies any headache, blurry vision, no nausea, vomiting nursing staff report that he has been a bit drowsy we discussed holding his Dilaudid, and discontinue the Librium, Vitals/I&O/Wt Last Vital Signs Temp 98.6 F 10/23/23 12:20 Pulse 89 10/23/23 12:20 Resp 17 10/23/23 12:20 BP 157/83 10/23/23 12:20 Pulse Ox 95 10/23/23 12:20 O2 Del Method Nasal Cannula 10/23/23 12:20 O2 Flow Rate 4 10/23/23 10:00 10/22/23 10/23/23 10/23/23 22:59 06:59 14:59 Intake Total 450 / 900 350 / 1250 340 / 340 Output Total 2025 / 4025 2250 / 6275 Balance -1575 / -3125 -1900 / -5025 340 / 340 Weight last 48 hrs Weight 133.492 kg Weight 137.166 kg Physical Exam Const: COMMON NORMALS: no acute distress and patient oriented x3 Resp: COMMON NORMALS: normal respiratory effort, No retractions, No use of accessory muscles and clear to auscultation bilaterally AUSCULTATION: clear to auscultation bilaterally Cardio: COMMON NORMALS: regular rate, regular rhythm, S1 normal heart sound present and S2 normal heart sound present RATE: regular rate RHYTHM: regular rhythm HEART SOUNDS: S1 normal heart sound present and S2 normal heart sound present GI: COMMON NORMALS: Normal to inspection, nondistended, normoactive bowel sounds present and Soft to palpation PALPATION: Yes Soft to palpation Extremity: NARRATIVE EXTREMITY EXAM: 2+edema Neuro: COMMON NORMALS: patient oriented x3 Psych: COMMON NORMALS: mental status grossly normal Urinary Catheter Management: Flores: Cath Placed During This Visit: no Reason for Continuing Indwelling Catheter: Other Data 10/23/23 02:00 10/23/23 02:00 A&P Assessment and plan (1) Alcohol withdrawal: (2) Hyponatremia: (3) Alcoholic cirrhosis of liver: (4) Hyperbilirubinemia: (5) GI bleeding: (6) Acidosis, lactic: (7) Anemia: (8) Fluid overload: (9) Anasarca: (10) Cellulitis: (11) Shingles: (12) Diastolic CHF: (13) Hypomagnesemia: (14) Congestive heart failure: (15) Fluid retention in tissues: (16) Obesity: (17) Hepatic encephalopathy: Plan Fluid overload, pulm edema, ascites, anasarca -Likely combination of diastolic CHF exacerbation, liver cirrhosis Plan -Continue Aldactone 25 mg daily -Continue Lasix 40 mg IV twice daily, with albumin twice daily - -8 L so far -Monitor urine output, creatinine Diastolic CHF exacerbation as above Alcoholism, high risk of alcohol withdrawal, last alcohol drink this morning -[facility] protocol - scheduled Librium 25 every 24 hours Shingles rash -On examination today, rash has crusted over -Patient's rash on his right buttocks right thigh, right hip is in a dermatomal fashion, he has a couple vesiculated lesions highly concerning for shingles -Will place on isolation precautions -Continue acyclovir Cellulitis, with open wounds, right thigh, right hip, right buttocks -Isolation precautions -Wound care wet-to-dry dressing -Continue vancomycin, cefepime Hypomagnesemia, replace electrolytes Elevated lactic acid, monitor Acute on chronic anemia with history of GI bleed monitor Elevated INR, 1.8 to monitor Alcoholic liver cirrhosis -INR 1.82, sodium 129, creatinine 0.5, albumin 2.0, T. bili 2.0, MELD score 16 Abdominal distention, monitor Chronic pain, alcohol screen, drug screen, Dilaudid 0.2 mg every 4 hours as needed Encephalopathy, hepatic encephalopathy, elevated ammonia levels, start lactulose Full code SCDs for DVT prophylaxis Anticoagulation such as Lovenox relatively contraindicated given elevated INR Plan for today start lactulose for hepatic encephalopathy, continue diuresis, de-escalate antibiotics Attestations Medical Necessity Statement*: Patient requires hospitalization for fluid overload, requiring IV diuresis, cellulitis requiring IV antibiotics, shingles Diagnoses Alcohol withdrawal F10.939 Hyponatremia E87.1 Alcoholic cirrhosis of liver K70.30 Hyperbilirubinemia E80.6 GI bleeding K92.2 Acidosis, lactic E87.20 Anemia D64.9 Fluid overload E87.70 Anasarca R60.1 Cellulitis L03.90 Shingles B02.9 Diastolic CHF I50.30 Hypomagnesemia E83.42 Congestive heart failure I50.9 Fluid retention in tissues R60.9 Obesity E66.9 Hepatic encephalopathy K76.82
[2023-10-23] MEDS: lactulose oral liq 20 gm/30 mL UDC PO ×2 (14:26→20:55)
[2023-10-23] MEDS: levothyroxine 50 mcg Tablet PO (14:26)
[2023-10-23] MEDS: magnesium sulfate premix 2 GM/50 ML PIGGYBACK IV (16:03)
[2023-10-23] MEDS: pantoprazole 40 mg SDV IVP (16:37)
[2023-10-23 17:04] LABS: Glucose Point of Care 131 mg/dL (70-110)
[2023-10-23] MEDS: doxycycline 100 mg Tablet PO (17:25)
[2023-10-23 20:45] LABS: Glucose Point of Care 205 mg/dL (70-110)
[2023-10-23] MEDS: trazodone 100 mg Tablet 200 MG PO (20:54)
[2023-10-24] VITALS (9 sets, daily range): BP systolic 111–154; BP diastolic 61–79; PULSE 64–89; RESP 16–18; TEMP 36.5–36.8; O2SAT 94–97; BMI 44.3
[2023-10-24] MEDS: lactulose oral liq 20 gm/30 mL UDC PO ×4 (01:14→21:34)
[2023-10-24] MEDS: HYDROmorphone 1 mg/mL INJ 1 mL 0.200000000000000011 MG IVP ×2 (01:24→14:14)
[2023-10-24] MEDS: albumin 25 G/100 ML BAG 60 G IV (05:54)
[2023-10-24 06:54] LABS: Glucose Point of Care 147 mg/dL (70-110)
[2023-10-24 07:22] LABS: Basophils % 1.2 %; Eosinophils # 0.1 10^3/uL (0.0-0.8); Hematocrit 27.6 % (37-53); Lymphocytes # 1.6 10^3/uL (0.8-4.8); Lymphocytes % 44.9 %; Mean Corpuscular HGB Conc 28.6 g/dL (30-55); Mean Corpuscular Hemoglobin 25.2 pg (27-33); Mean Corpuscular Volume 87.9 fl (82-101); Mean Platelet Volume 9.6 fL (7.4-10.4); Monocytes # 0.6 10^3/uL (0.2-0.9); Monocytes % 15.9 %; Neutrophils # 1.24 10^3/uL (1.8-7.7); Nucleated Red Blood Cells % 0 %; Platelet Count 95 10^3/cmm (157-399); Red Blood Count 3.14 10^6/uL (3.85-5.65); Red Cell Distribution Width 22.6 % (12.1-15.1); White Blood Count 3.45 10^3/uL (3.29-11.43)
[2023-10-24 07:35] LABS: Lactate (Lactic Acid level) 0.8 mmol/L (0.5-2.2)
[2023-10-24 07:36] LABS: Alanine Aminotransferase 16 U/L (0-41); Albumin Level 2.8 g/dL (3.5-5.2); Alkaline Phosphatase 106 U/L (40-130); Anion Gap 5.4 (5-19); Aspartate Amino Transferase 55 U/L (0-40); Blood Urea Nitrogen 4 mg/dL (6-20); C Reactive Protein 10.1 mg/L (0.0-4.9); Chloride 91 mmol/L (98-107); Globulin 4.4 g/dL (1.3-4.6); Glomerular Filtration Rate 171.4 mL/min (90-130); Glucose 118 mg/dL (65-115); Magnesium 1.5 mg/dL (1.7-2.3); Osmolality Calculated 282 mOsm/kg (285-295); Potassium 3.4 mmol/L (3.5-5.1); Sodium 137 mmol/L (136-145); Total Bilirubin 1.6 mg/dL (0.15-1.2); Total Protein 7.2 g/dL (6.6-8.7)
[2023-10-24 07:37] LABS: Ammonia 62 umol/L (16-60)
[2023-10-24 07:42] LABS: Carbon Dioxide 44 mmol/L (22-29); Creatinine Clr Calc Pharmacy 209.8627
[2023-10-24 07:57] LABS: Creatine Phosphokinase 434 U/L (39-308)
[2023-10-24] MEDS: acyclovir 800 mg Tablet PO ×4 (08:18→21:34)
[2023-10-24] MEDS: doxycycline 100 mg Tablet PO ×2 (08:18→17:06)
[2023-10-24] MEDS: spironolactone 25 mg Tablet PO (08:18)
[2023-10-24] MEDS: folic acid 1 mg Tablet PO (08:18)
[2023-10-24] MEDS: multivitamin therapeutic Tablet 1 TAB PO (08:18)
[2023-10-24] MEDS: thiamine 100 mg Tablet PO (08:24)
[2023-10-24 08:29] LABS: Procalcitonin 0.12 ng/mL (0-0.5)
[2023-10-24 08:42] LABS: Vancomycin Trough 7.2 ug/mL (10-15)
[2023-10-24] MEDS: FUROsemide 10 mg/mL SDV 4mL 40 MG IVP ×2 (09:46→17:07)
[2023-10-24] MEDS: potassium phosphate (mEq K) 40 MEQ in sodium chloride 0.9% (100 ml) 100 ML 27.2699999999999996 MEQ IV (09:46)
[2023-10-24 09:58] LABS: NT Pro B Type Natriuretic Pept 328 pg/mL (0-125)
--- NOTE | 2023-10-24 10:19 | P.PN_ITS ---
Subjective 2 Subjective: Patient was seen this morning, sitting up in a chair continues to complain of shortness of breath edema weakness all over, diffuse musculoskeletal aches and pains, is alert oriented x 3, following all commands, ammonia levels improving Vitals/I&O/Wt Last Vital Signs Temp 97.8 F 10/24/23 07:59 Pulse 77 10/24/23 07:59 Resp 18 10/24/23 07:59 BP 154/70 10/24/23 07:59 Pulse Ox 97 10/24/23 07:59 O2 Del Method Nasal Cannula 10/24/23 07:59 O2 Flow Rate 4 10/24/23 07:47 10/23/23 10/24/23 10/24/23 22:59 06:59 14:59 Intake Total 930 / 1750 780 / 780 Output Total 1800 / 1800 1000 / 2800 Balance -870 / -50 -1000 / -1050 780 / 780 Weight last 48 hrs Weight 128.412 kg Weight 133.492 kg Physical Exam 2 Const: COMMON NORMALS: no acute distress and patient oriented x3 Resp: COMMON NORMALS: normal respiratory effort, No retractions and No use of accessory muscles AUSCULTATION: crackles Cardio: COMMON NORMALS: regular rate, regular rhythm, S1 normal heart sound present and S2 normal heart sound present RATE: regular rate RHYTHM: r egular rhythm HEART SOUNDS: S1 normal heart sound present and S2 normal heart sound present GI: COMMON NORMALS: Normal to inspection, nondistended, normoactive bowel sounds present and non-tender Extremity: NARRATIVE EXTREMITY EXAM: 2+ pitting edema Neuro: COMMON NORMALS: patient oriented x3 Psych: COMMON NORMALS: mental status grossly normal Urinary Catheter Management: Flores: Cath Placed During This Visit: no Reason for Continuing Indwelling Catheter: Other Data 10/24/23 06:37 10/24/23 06:37 A&P Assessment and plan (1) Alcohol withdrawal: (2) Hyponatremia: (3) Alcoholic cirrhosis of liver: (4) Hyperbilirubinemia: (5) GI bleeding: (6) Acidosis, lactic: (7) Anemia: (8) Fluid overload: (9) Anasarca: (10) Cellulitis: (11) Shingles: (12) Diastolic CHF: (13) Hypomagnesemia: (14) Congestive heart failure: (15) Fluid retention in tissues: (16) Obesity: (17) Hepatic encephalopathy: Plan Fluid overload, pulm edema, ascites, anasarca -Likely combination of diastolic CHF exacerbation, liver cirrhosis Plan -Continue Aldactone 25 mg daily -Continue Lasix 40 mg IV twice daily, will transition to p.o. Lasix tomorrow - -8 L so far -Monitor urine output, creatinine Diastolic CHF exacerbation as above Alcoholism, high risk of alcohol withdrawal, last alcohol drink this morning -[facility] protocol -Has completed Librium Shingles rash -On examination today, rash has crusted over -Patient's rash on his right buttocks right thigh, right hip is in a dermatomal fashion, he has a couple vesiculated lesions highly concerning for shingles -Will place on isolation precautions -Continue acyclovir Cellulitis, with open wounds, right thigh, right hip, right buttocks -Isolation precautions -Wound care wet-to-dry dressing -De-escalated to doxycycline Hypomagnesemia, replace electrolytes Elevated lactic acid, monitor Acute on chronic anemia with history of GI bleed monitor Elevated INR, 1.8 to monitor Alcoholic liver cirrhosis -INR 1.82, sodium 129, creatinine 0.5, albumin 2.0, T. bili 2.0, MELD score 16 Abdominal distention, monitor Chronic pain, alcohol screen, drug screen, Dilaudid 0.2 mg every 8 hours as needed Encephalopathy, hepatic encephalopathy, improving, ammonia levels improving continue lactulose Full code SCDs for DVT prophylaxis Anticoagulation such as Lovenox relatively contraindicated given elevated INR Plan for today start lactulose for hepatic encephalopathy, continue diuresis, continue to monitor Attestations 2 Medical Necessity Statement*: Patient requires hospitalization, for further diuresis, fluid overload, cellulitis, shingles, hepatic encephalopathy, hyperammonemia Diagnoses Alcohol withdrawal F10.939 Hyponatremia E87.1 Alcoholic cirrhosis of liver K70.30 Hyperbilirubinemia E80.6 GI bleeding K92.2 Acidosis, lactic E87.20 Anemia D64.9 Fluid overload E87.70 Anasarca R60.1 Cellulitis L03.90 Shingles B02.9 Diastolic CHF I50.30 Hypomagnesemia E83.42 Congestive heart failure I50.9 Fluid retention in tissues R60.9 Obesity E66.9 Hepatic encephalopathy K76.82
[2023-10-24 11:26] LABS: Glucose Point of Care 172 mg/dL (70-110)
[2023-10-24] MEDS: magnesium sulfate premix 2 GM/50 ML PIGGYBACK IV (14:07)
[2023-10-24] MEDS: levothyroxine 50 mcg Tablet PO (14:08)
[2023-10-24] MEDS: pantoprazole 40 mg SDV IVP (17:06)
[2023-10-24] MEDS: potassium chloride ER 20 mEq Tablet PO (17:07)
[2023-10-24 17:09] LABS: Glucose Point of Care 151 mg/dL (70-110)
[2023-10-24 20:53] LABS: Glucose Point of Care 144 mg/dL (70-110)
[2023-10-24] MEDS: trazodone 100 mg Tablet 200 MG PO (21:34)
[2023-10-25] VITALS (10 sets, daily range): BP systolic 106–134; BP diastolic 54–80; PULSE 64–88; RESP 16–20; TEMP 36.2–37.3; O2SAT 90–100
[2023-10-25 05:16] LABS: Basophils % 0.8 %; Eosinophils # 0.1 10^3/uL (0.0-0.8); Eosinophils % 2.4 %; Hematocrit 26.9 % (37-53); Lymphocytes # 1.3 10^3/uL (0.8-4.8); Lymphocytes % 35.2 %; Mean Corpuscular HGB Conc 28.6 g/dL (30-55); Mean Corpuscular Hemoglobin 24.2 pg (27-33); Mean Corpuscular Volume 84.6 fl (82-101); Mean Platelet Volume 8.7 fL (7.4-10.4); Monocytes # 0.5 10^3/uL (0.2-0.9); Monocytes % 13.6 %; Neutrophils # 1.82 10^3/uL (1.8-7.7); Neutrophils % 47.7 %; Nucleated Red Blood Cells % 0 %; Platelet Count 83 10^3/cmm (157-399); Red Blood Count 3.18 10^6/uL (3.85-5.65); Red Cell Distribution Width 22.2 % (12.1-15.1); White Blood Count 3.81 10^3/uL (3.29-11.43)
[2023-10-25 05:28] LABS: INR 1.82 (0.8-1.2)
[2023-10-25 05:36] LABS: Ammonia 53 umol/L (16-60)
[2023-10-25 05:43] LABS: Alanine Aminotransferase 26 U/L (0-41); Albumin Level 2.5 g/dL (3.5-5.2); Alkaline Phosphatase 93 U/L (40-130); Anion Gap 4.2 (5-19); Aspartate Amino Transferase 104 U/L (0-40); Blood Urea Nitrogen 4 mg/dL (6-20); C Reactive Protein 9.2 mg/L (0.0-4.9); Calcium 7.9 mg/dL (8.5-10.5); Chloride 91 mmol/L (98-107); Creatinine Clr Calc Pharmacy 208.2313; Globulin 4.2 g/dL (1.3-4.6); Glomerular Filtration Rate 171.4 mL/min (90-130); Glucose 105 mg/dL (65-115); Magnesium 1.2 mg/dL (1.7-2.3); Osmolality Calculated 283 mOsm/kg (285-295); Phosphorus 3.1 mg/dL (2.5-4.5); Potassium 3.2 mmol/L (3.5-5.1); Sodium 138 mmol/L (136-145); Total Bilirubin 1.9 mg/dL (0.15-1.2); Total Protein 6.7 g/dL (6.6-8.7)
[2023-10-25 05:46] LABS: NT Pro B Type Natriuretic Pept 231 pg/mL (0-125); Procalcitonin 0.14 ng/mL (0-0.5)
[2023-10-25 05:53] LABS: Carbon Dioxide 46 mmol/L (22-29)
[2023-10-25 06:19] LABS: Creatine Phosphokinase 1233 U/L (39-308)
[2023-10-25 06:59] LABS: Glucose Point of Care 123 mg/dL (70-110)
[2023-10-25] MEDS: spironolactone 25 mg Tablet PO (08:51)
[2023-10-25] MEDS: acyclovir 800 mg Tablet PO ×4 (08:51→21:35)
[2023-10-25] MEDS: multivitamin therapeutic Tablet 1 TAB PO (08:51)
[2023-10-25] MEDS: thiamine 100 mg Tablet PO (08:51)
[2023-10-25] MEDS: doxycycline 100 mg Tablet PO ×2 (08:51→17:36)
[2023-10-25] MEDS: FUROsemide 40 mg Tablet PO ×2 (08:51→17:36)
[2023-10-25] MEDS: folic acid 1 mg Tablet PO (08:51)
[2023-10-25 10:48] LABS: Glucose Point of Care 137 mg/dL (70-110)
[2023-10-25] MEDS: lactulose oral liq 20 gm/30 mL UDC PO ×2 (10:50→21:34)
[2023-10-25] MEDS: acetaminophen 325 mg Tablet 650 MG PO ×2 (12:03→17:35)
[2023-10-25] MEDS: levothyroxine 50 mcg Tablet PO (12:03)
--- NOTE | 2023-10-25 15:27 | P.PN_ITS ---
Subjective 2 Subjective: Patient is up to bedside chair. Endorses severe weakness. Reports bilateral lower extremity swelling. Reports has not been able to ambulate. I discussed discharge planning as he seems to be improving overall. We discussed home versus postacute. He has concerns about postacute but wants to think about it slightly more. Therapy is working with patient. He denies other new complaints. Medications: Reviewed: Yes Vitals/I&O/Wt Last Vital Signs Temp 98.3 F 10/25/23 08:00 Pulse 64 10/25/23 14:00 Resp 17 10/25/23 11:39 BP 132/80 10/25/23 11:39 Pulse Ox 100 10/25/23 11:39 O2 Del Method Nasal Cannula 10/25/23 11:39 O2 Flow Rate 4 10/25/23 07:59 10/25/23 10/25/23 10/25/23 06:59 14:59 22:59 Intake Total 240 / 240 Output Total 550 / 1950 800 / 800 Balance -550 / 888.5106 -560 / -560 Weight last 48 hrs Weight 126.643 kg Weight 128.412 kg Physical Exam 2 Narrative: General: Patient is awake and alert. Very pleasant. Up to bedside chair. Head: Normocephalic. Atraumatic. EOM intact. Neck: No JVD. Cardiovascular: RRR. No gallops. No murmurs. 2-3+ pitting edema bilateral lower extremities. Lungs: Breath sounds are slightly manage bilateral bases, no use of accessory muscles, no crackles or wheezes. On nasal cannula support. Skin: No jaundice. No rashes. Abdomen: Normal bowel sounds, abdomen soft and nontender. Genito Urinary: Genital exam not performed since complaints not related. Rectal: Rectal exam not performed since no symptoms indicated blood loss. Extremities: No cyanosis or clubbing. Musculoskeletal: No swollen or erythematous joints. Neurological: Moves all 4 extremities. No myoclonus. Urinary Catheter Management: Flores: Cath Placed During This Visit: no Reason for Continuing Indwelling Catheter: Other Data 10/25/23 05:01 10/25/23 05:01 Micro: Microbiology 10/20/23 11:40 Blood Culture - Final Blood NO GROWTH AFTER 5 DAYS 10/20/23 11:25 Blood Culture - Final Blood NO GROWTH AFTER 5 DAYS A&P Assessment and plan (1) Alcoholism: (2) Diastolic CHF: (3) Obesity: (4) Fluid overload: (5) Alcoholic cirrhosis of liver: (6) Hyperbilirubinemia: (7) Hepatic encephalopathy: (8) Anemia: (9) Cellulitis: (10) Shingles: (11) COPD (chronic obstructive pulmonary disease): Plan Debility and physical deconditioning -Continue therapy, follow-up with PT/OT regarding performance today -He may need postacute placement -Continue supportive care Hypervolemia Acute pulmonary edema Decompensated liver cirrhosis with ascites and anasarca Acute on chronic heart failure preserved ejection fraction exacerbation Hypervolemic hyponatremia -Continue diuresis -Increase Lasix to twice daily dosing -Continue Aldactone -Trial of Diamox Compensatory metabolic alkalosis -Continue Aldactone, start low-dose Diamox Alcohol use disorder -Initially withdrawal which is now resolved -Discontinue CIWA protocol Shingles -Location on right hip/buttocks, not crossing over -Continue acyclovir -Take necessary precautions Cellulitis of right thigh and hip complicated by wound -Continue doxycycline -Routine wound care Hypokalemia Hypomagnesia -Replace electrolytes as needed Chronic pain -Discontinue IV opiates Decompensated liver cirrhosis with ascites and hepatic encephalopathy Hyperbilirubinemia, transaminitis, cirrhosis induced coagulopathy -Encephalopathy has resolved -Continue current lactulose dosing, titrate as needed Anemia -Blood counts stable -Monitor for bleeding COPD For continue nebulizing treatments DVT prophylaxis: SCD CODE STATUS: Full code Attestations 2 Medical Necessity Statement*: Patient requires ongoing hospitalization for serial electrolyte monitoring, therapy and supportive care to determine disposition. Coding Level of Care Code Acute Code for [facility] Fwd Diagnoses Alcoholism F10.20 Diastolic CHF I50.30 Obesity E66.9 Fluid overload E87.70 Alcoholic cirrhosis of liver K70.30 Hyperbilirubinemia E80.6 Hepatic encephalopathy K76.82 Anemia D64.9 Cellulitis L03.90 Shingles B02.9 COPD (chronic obstructive pulmonary disease) J44.9
[2023-10-25 16:58] LABS: Glucose Point of Care 154 mg/dL (70-110)
[2023-10-25] MEDS: magnesium oxide 400 mg tablet PO (17:36)
[2023-10-25 20:32] LABS: Glucose Point of Care 149 mg/dL (70-110)
[2023-10-25] MEDS: trazodone 100 mg Tablet 200 MG PO (21:34)
[2023-10-26] VITALS (9 sets, daily range): BP systolic 110–161; BP diastolic 56–113; PULSE 62–84; RESP 16–18; TEMP 36.5–36.8; O2SAT 92–99
[2023-10-26 05:38] LABS: Basophils % 1.4 %; Eosinophils # 0.1 10^3/uL (0.0-0.8); Eosinophils % 2.7 %; Hematocrit 27.8 % (37-53); Lymphocytes % 33.1 %; Mean Corpuscular HGB Conc 28.8 g/dL (30-55); Mean Corpuscular Hemoglobin 24.5 pg (27-33); Mean Corpuscular Volume 85.3 fl (82-101); Mean Platelet Volume 9.2 fL (7.4-10.4); Monocytes # 0.4 10^3/uL (0.2-0.9); Monocytes % 14.2 %; Neutrophils # 1.43 10^3/uL (1.8-7.7); Neutrophils % 48.3 %; Nucleated Red Blood Cells % 0 %; Platelet Count 93 10^3/cmm (157-399); Red Blood Count 3.26 10^6/uL (3.85-5.65); Red Cell Distribution Width 22.2 % (12.1-15.1); White Blood Count 2.96 10^3/uL (3.29-11.43)
[2023-10-26 06:13] LABS: Alanine Aminotransferase 24 U/L (0-41); Albumin Level 2.5 g/dL (3.5-5.2); Alkaline Phosphatase 95 U/L (40-130); Anion Gap 4.1 (5-19); Aspartate Amino Transferase 89 U/L (0-40); Blood Urea Nitrogen 6 mg/dL (6-20); Chloride 90 mmol/L (98-107); Creatinine Clr Calc Pharmacy 174.9901; Globulin 4.4 g/dL (1.3-4.6); Glomerular Filtration Rate 138.9 mL/min (90-130); Glucose 96 mg/dL (65-115); Magnesium 1.2 mg/dL (1.7-2.3); Osmolality Calculated 283 mOsm/kg (285-295); Potassium 3.1 mmol/L (3.5-5.1); Sodium 138 mmol/L (136-145); Total Bilirubin 1.8 mg/dL (0.15-1.2); Total Protein 6.9 g/dL (6.6-8.7)
[2023-10-26 06:28] LABS: Carbon Dioxide 47 mmol/L (22-29)
[2023-10-26 06:46] LABS: Glucose Point of Care 111 mg/dL (70-110)
[2023-10-26] MEDS: multivitamin therapeutic Tablet 1 TAB PO (08:31)
[2023-10-26] MEDS: acyclovir 800 mg Tablet PO ×4 (08:31→20:10)
[2023-10-26] MEDS: folic acid 1 mg Tablet PO (08:31)
[2023-10-26] MEDS: spironolactone 25 mg Tablet PO (08:31)
[2023-10-26] MEDS: magnesium oxide 400 mg tablet PO ×2 (08:31→17:26)
[2023-10-26] MEDS: doxycycline 100 mg Tablet PO ×2 (08:31→17:26)
[2023-10-26] MEDS: thiamine 100 mg Tablet PO (08:31)
[2023-10-26] MEDS: acetaZOLAMIDE 250 mg Tablet PO (08:31)
[2023-10-26] MEDS: FUROsemide 40 mg Tablet PO ×2 (08:31→16:22)
[2023-10-26] MEDS: lactulose oral liq 20 gm/30 mL UDC PO ×2 (10:29→21:34)
[2023-10-26] MEDS: acetaminophen 325 mg Tablet 650 MG PO (10:29)
[2023-10-26 10:54] LABS: Glucose Point of Care 147 mg/dL (70-110)
[2023-10-26] MEDS: levothyroxine 50 mcg Tablet PO (12:54)
[2023-10-26 16:41] LABS: Glucose Point of Care 148 mg/dL (70-110)
--- NOTE | 2023-10-26 16:58 | P.PN_ITS ---
Subjective 2 Subjective: The patient complains of weakness. He denies f/c, dizziness, light headedness. He endorses pedal edema. He tells me that he wears wears 2L at night at baseline. Vitals/I&O/Wt Last Vital Signs Temp 98.3 F 10/26/23 11:53 Pulse 74 10/26/23 15:39 Resp 16 10/26/23 15:39 BP 148/74 10/26/23 15:39 Pulse Ox 99 10/26/23 15:39 O2 Del Method Nasal Cannula 10/26/23 15:39 O2 Flow Rate 4 10/26/23 09:43 10/26/23 10/26/23 10/26/23 06:59 14:59 22:59 Intake Total 900 / 900 Output Total 1150 / 2400 400 / 400 775 / 1175 Balance -1150 / -1580 500 / 500 -775 / -275 Weight last 48 hrs Weight 128.548 kg Weight 126.643 kg Physical Exam 2 Const: GENERAL APPEARANCE: cooperative and comfortable NUTRITIONAL APPEARANCE: obese ORIENTATION/CONSCIOUSNESS: Yes awake, Yes oriented to person, Yes oriented to place and Yes oriented to time HENMT: COMMON NORMALS: normocephalic, atraumatic, external ears normal and Normal external nose present HEAD & SCALP: normocephalic and atraumatic F JAMAL & SINUS: normal facial exam NOSE: Normal external nose present E XTERNAL EAR: Yes external ears normal MOUTH: Normal oral and palatal mucosa present THROAT: posterior oropharynx normal Eye: COMMON NORMALS: Equal, round and reactive pupils present PUPIL: Yes Equal, round and reactive pupils present EOM: No EOM abnormal Neck/C-Spine: COMMON NORMALS: Thyroid normal GENERAL: Yes normal visual inspection and Yes trachea midline THYROID: Thyroid normal CAROTIDS: Yes normal carotid upstroke CERVICAL SPINE: Yes cervical ROM normal Resp: OTHER: Crackles and diminished breath sounds in the bilateral lower lung ramirez Cardio: OTHER: RRR, no m/r/g/clicks GI: OTHER: BS positive, nontender, nondistended, no rigidity, no guarding, no rebound tenderness, no hepatosplenomegaly. Extremity: NARRATIVE EXTREMITY EXAM: 3+ pitting edema to the hips, Neuro: SENSORIUM/ORIENTATION: Yes oriented to person, Yes oriented to place and Yes oriented to time CRANIAL NERVES: Yes CN normal except as noted S PEECH: speech normal SENSORY EXAM: No sensory level loss detected MOTOR EXAM: 5/5 motor strength present throughout Psych: COMMON NORMALS: Normal thought process present and speech normal A PPEARANCE: Yes grossly normal ATTITUDE: Yes calm and Yes engaged A CTIVITY/MOTOR BEHAVIOR: Yes appropriate eye contact SPEECH: Yes normal speech MOOD & AFFECT: Yes euthymic mood THOUGHT PROCESS: Normal thought process present THOUGHT CONTENT: Yes Normal thought content present A TTENTION/CONCENTRATION: Yes attention grossly intact MEMORY/COGNITION: Yes memory grossly intact Skin: COMMON NORMALS: no rashes or lesions noted GENERAL SKIN EXAM: no rashes or lesions noted Urinary Catheter Management: Reddy: Cath Placed During This Visit: no Reason for Continuing Indwelling Catheter: Other Data 10/27/23 06:39 10/27/23 06:39 Micro: Microbiology 10/20/23 11:40 Blood Culture - Final Blood NO GROWTH AFTER 5 DAYS 10/20/23 11:25 Blood Culture - Final Blood NO GROWTH AFTER 5 DAYS A&P Assessment and plan (1) Alcoholism: (2) Diastolic CHF: Qualifiers: Heart failure chronicity: acute on chronic Qualified Code(s): I50.33 - Acute on chronic diastolic (congestive) heart failure (3) Thrombocytopenia: (4) Obesity: Qualifiers: Obesity classification: adult class 3 (BMI >= 40) Obesity type: due to excess calories Serious obesity comorbidity presence: unspecified whether serious comorbidity present Body mass index: BMI 40.0-44.9 Qualified Code(s): E66.01 - Morbid (severe) obesity due to excess calories; Z68.41 - Body mass index [BMI] 40.0-44.9, adult (5) Alcoholic cirrhosis of liver: Qualifiers: Ascites presence: with ascites Qualified Code(s): K70.31 - Alcoholic cirrhosis of liver with ascites (6) Hepatic encephalopathy: (7) Anemia: Qualifiers: Anemia type: unspecified type Qualified Code(s): D64.9 - Anemia, unspecified (8) Shingles: Qualifiers: Herpes zoster complications: without complications Qualified Code(s): B 02.9 - Zoster without complications (9) Cellulitis: Qualifiers: Site of cellulitis of extremity: lower extremity Laterality: right (10) COPD (chronic obstructive pulmonary disease): Qualifiers: COPD type: unspecified COPD Qualified Code(s): J44.9 - Chronic obstructive pulmonary disease, unspecified Plan Mr. Reynolds is a 58yo man w/ HFpEF, COPD, chronic hypoxic respiratory failure, class III obesity, current Alcohol Use d/o, likely Decompensated Liver cirrhosis due to alcohol, who presented to [facility] with complaints of dyspnea, increased lower extremity edema, and a developing cellulitis on rash on his R. thigh and buttocks. He was admitted for volume overload, secondary to anasarca, Acute on chronic HFpEF, VZV rash, and a R. hip and thigh cellulitis. On admission, paracentesis was ordered, but he was deemed insufficient fluid for paracentesis. He was diuresed with Lasix, albumin, and Aldactone. He was also started on vancomycin, cefepime, and acyclovir for R. thigh cellulitis and a rash that was deemed to be due to shingles. On 10/23/2023, he was noted to be encephalopathic, and it was deemed to be due to hepatic encephalopathy. Given the elevated ammonia levels, he was started on scheduled lactulose. He was also switched to Doxycycline BID. #Anasarca: Possibly due to HFpEF vs liver cirrhosis #Acute on chronic HFpEF - Continue diuresis - strict Is & Os. He has a reddy catheter in place. # Acute on chronic chronic hypoxic/hypercapneic respiratory failure, #current Alcohol Use d/o #Decompensated liver cirrhosis #Concern for Hepatic encephalopathy: Titrate lactulose to 3 BMs daily #Likely Anemia of chronic disease: F/u iron studies. Monitor cbc #Hx of Suspected GI bleed: requiring 4units prbc transfusion in 09/2023 hospitalization. Patient was to f/u outpatient for endoscopy. Unclear if he did f/u. class III obesity #Thrombocytopenia: Likely due to Liver cirrhosis. #Hypokalemia: Monitor K levels and Replace accordingly. #Hypomagnesemia: Monitor Mg levels and Replace accordingly. #Uncompensated Metabolic alkalosis: Acetazolamide started. ABG obtained on 4L on 10/27/2023 is 7.45/69/77. Will wean his O2 requirements. #R. thigh cellulitis: On Doxycycline since 10/23/2023 #Shingles. Continue Acyclovir #Myositis: F/u CK. #COPD: not in exacerbation. Continue nebulizing treatments. #Hypothyroidism: Continue hoome meds. #Current tobacco use d/o and Marijuana use: Initiate Nicotine patch #Chronic back pain - Osteoarthritis of the Cervical and Lumbar spine noted on 02/2020 XR #Lumbar radiculopathy #Weakness and physical deconditioning: Patient has agreed to PT/OT & is open to going to rehab as outpatient DVT ppx: Lovenox. Attestations 2 Medical Necessity Statement*: Patient remains hospitalized for his vol overload, blood gas abnormalities, and is pending rehab referrals. Coding Level of Care Code 51167 Diagnoses Alcoholism F10.20 Acute on chronic diastolic congestive heart failure I50.33 Heart failure chronicity: acute on chronic Thrombocytopenia D69.6 Class 3 severe obesity due to excess calories with body mass index (BMI) of 40.0 to 44.9 in adult, unspecified whether serious comorbidity present E66.01; Z68.41 Obesity classification: adult class 3 (BMI >= 40) Obesity type: due to excess calories Serious obesity comorbidity presence: unspecified whether serious comorbidity present Body mass index: BMI 40.0-44.9 Alcoholic cirrhosis of liver with ascites K70.31 Ascites presence: with ascites Hepatic encephalopathy K76.82 Anemia, unspecified type D64.9 Anemia type: unspecified type Herpes zoster without complication B02.9 Herpes zoster complications: without complications Cellulitis L03.90 Site of cellulitis of extremity: lower extremity Laterality: right Chronic obstructive pulmonary disease, unspecified COPD type J44.9 COPD type: unspecified COPD
[2023-10-26] MEDS: magnesium sulfate premix 4 GM/100 ML PREMIX IV (17:26)
[2023-10-26] MEDS: potassium chloride ER 20 mEq Tablet 40 MEQ PO (17:26)
[2023-10-26] MEDS: potassium chloride premix 100 ML 25 MEQ IV (17:27)
[2023-10-26 18:11] LABS: ABG PH Result 7.45 (7.35-7.45); Alveolar-Arterial Oxygen Gradi 12.7 mmHg (5-10); Arterial Blood Gas Hematocrit 25.9 % (42-52); Base Excess ABG 21.4 mmol/L (-2.0-2.0); Blood Gas Allen Test Pos; Blood Gas Operator Identificat GD; Blood Gas Sample Site Radial, left; Blood Gas Sample Type Arterial; Carboxyhemoglobin 2.4 %THgb (0.4-20.1); HCO3 ABG 48.1 mmol/L (22-26); HGB O2 Sat 93.8 % (95-100); Ionized Calcium Level - ABG 1.1 mmol/L (1.1-1.4); Methemoglobin 0.7 % (0.4-1.5); Oxygen Device NC; Oxygen Saturation ABG 96.8; PO2 ABG 76.9 mmHg (80.0-100.0); PO2 FiO2 Ratio Arterial Blood 0; Potassium Level - ABG 2.9 mmol/L (3.5-5.0); Total Hemoglobin 8.5 g/dL (14-18)
[2023-10-26 18:12] LABS: ABG PCO2 69.5 mmHg (35-45)
[2023-10-26] MEDS: trazodone 100 mg Tablet 200 MG PO (20:10)
[2023-10-26 21:16] LABS: Glucose Point of Care 176 mg/dL (70-110)
[2023-10-27] VITALS (9 sets, daily range): BP systolic 118–157; BP diastolic 62–73; PULSE 62–83; RESP 18–20; TEMP 36.4–37.1; O2SAT 91–99
[2023-10-27 06:44] LABS: Glucose Point of Care 104 mg/dL (70-110)
[2023-10-27 07:07] LABS: Ammonia 101 umol/L (16-60)
[2023-10-27] MEDS: magnesium oxide 400 mg tablet PO ×2 (08:12→17:24)
[2023-10-27] MEDS: doxycycline 100 mg Tablet PO ×2 (08:12→17:24)
[2023-10-27] MEDS: folic acid 1 mg Tablet PO (08:12)
[2023-10-27] MEDS: acyclovir 800 mg Tablet PO ×4 (08:12→20:25)
[2023-10-27] MEDS: spironolactone 25 mg Tablet PO (08:12)
[2023-10-27] MEDS: thiamine 100 mg Tablet PO (08:12)
[2023-10-27] MEDS: multivitamin therapeutic Tablet 1 TAB PO (08:13)
[2023-10-27 08:25] LABS: Basophils % 1.2 %; Eosinophils # 0.1 10^3/uL (0.0-0.8); Eosinophils % 2.4 %; Hematocrit 27.2 % (37-53); Lymphocytes # 1.6 10^3/uL (0.8-4.8); Lymphocytes % 47.8 %; Mean Corpuscular Hemoglobin 24.8 pg (27-33); Mean Corpuscular Volume 85.3 fl (82-101); Monocytes # 0.6 10^3/uL (0.2-0.9); Neutrophils # 1.06 10^3/uL (1.8-7.7); Neutrophils % 31.6 %; Nucleated Red Blood Cells % 0 %; Platelet Count 113 10^3/cmm (157-399); Red Blood Count 3.19 10^6/uL (3.85-5.65); Red Cell Distribution Width 22.4 % (12.1-15.1); White Blood Count 3.35 10^3/uL (3.29-11.43)
[2023-10-27 08:33] LABS: Alanine Aminotransferase 25 U/L (0-41); Albumin Level 2.6 g/dL (3.5-5.2); Alkaline Phosphatase 95 U/L (40-130); Anion Gap 5.4 (5-19); Aspartate Amino Transferase 82 U/L (0-40); Blood Urea Nitrogen 7 mg/dL (6-20); Calcium 8.1 mg/dL (8.5-10.5); Chloride 91 mmol/L (98-107); Globulin 4.5 g/dL (1.3-4.6); Glomerular Filtration Rate 138.9 mL/min (90-130); Glucose 98 mg/dL (65-115); Magnesium 1.6 mg/dL (1.7-2.3); Osmolality Calculated 280 mOsm/kg (285-295); Phosphorus 2.9 mg/dL (2.5-4.5); Potassium 3.4 mmol/L (3.5-5.1); Sodium 136 mmol/L (136-145); Total Bilirubin 1.5 mg/dL (0.15-1.2); Total Protein 7.1 g/dL (6.6-8.7)
[2023-10-27 08:34] LABS: Creatinine Clr Calc Pharmacy 172.4325
[2023-10-27 08:37] LABS: Carbon Dioxide 43 mmol/L (22-29)
[2023-10-27] MEDS: metOLazone 5 MG Tablet PO (09:25)
[2023-10-27] MEDS: spironolactone 25 mg Tablet 50 MG PO (09:25)
[2023-10-27] MEDS: albumin 25 G/100 ML BAG 60 G IV (09:25)
[2023-10-27 09:26] LABS: NT Pro B Type Natriuretic Pept 200 pg/mL (0-125)
[2023-10-27 10:05] LABS: Creatine Phosphokinase 356 U/L (39-308)
[2023-10-27] MEDS: FUROsemide 10 mg/mL SDV 10mL 60 MG IVP (10:09)
[2023-10-27] MEDS: lactulose oral liq 20 gm/30 mL UDC PO (10:10)
--- NOTE | 2023-10-27 10:10 | PM.PN ---
Subjective Subjective: The patient complains of weakness and lumbar back pain, that radiates down his left leg. He tells me that he has had an MRI in the past, and offers show me a copy of the report. He was nauseous last night, but he did not vomit. He denies f/c, dizziness, light headedness, headaches. His right forearm and arm appears larger than the left arm. He states that this is not the norm for him. The IV was infiltrated, so was discontinued. Medications: Reviewed: Yes Vitals/I&O/Wt Last Vital Signs Temp 98.0 F 10/27/23 07:54 Pulse 82 10/27/23 07:54 Resp 18 10/27/23 07:54 BP 131/64 10/27/23 07:54 Pulse Ox 91 10/27/23 07:54 O2 Del Method Nasal Cannula 10/27/23 07:54 O2 Flow Rate 4 10/26/23 20:00 10/26/23 10/27/23 10/27/23 22:59 06:59 14:59 Intake Total 220 / 1120 100 / 1220 Output Total 1275 / 1675 700 / 2375 Balance -1055 / -555 -600 / -1155 Weight last 48 hrs Weight 125.22 kg Weight 128.548 kg Physical Exam Const: GENERAL APPEARANCE: cooperative and comfortable NUTRITIONAL APPEARANCE: obese ORIENTATION/CONSCIOUSNESS: Yes awake, Yes oriented to person, Yes oriented to place and Yes oriented to time HENMT: COMMON NORMALS: normocephalic, atraumatic, external ears normal and Normal external nose present HEAD & SCALP: normocephalic and atraumatic FACE & SINUS: normal facial exam NOSE: Normal external nose present EXTERNAL EAR: Yes external ears normal MOUTH: Normal oral and palatal mucosa present THROAT: posterior oropharynx normal Eye: COMMON NORMALS: Equal, round and reactive pupils present PUPIL: Yes Equal, round and reactive pupils present EOM: No EOM abnormal Neck/C-Spine: COMMON NORMALS: Thyroid normal GENERAL: Yes normal visual inspection and Yes trachea midline THYROID: Thyroid normal CAROTIDS: Yes normal carotid upstroke CERVICAL SPINE: Yes cervical ROM normal Resp: OTHER: Crackles and diminished breath sounds in the bilateral lower lung ramirez. mild expiratory wheezes in the b/l lower lung ramirez. Cardio: OTHER: RRR, no m/r/g/clicks GI: OTHER: BS positive, nontender, nondistended, no rigidity, no guarding, no rebound tenderness, no hepatosplenomegaly. Extremity: NARRATIVE EXTREMITY EXAM: 3+ pitting edema to the hips, Neuro: SENSORIUM/ORIENTATION: Yes oriented to person, Yes oriented to place and Yes oriented to time CRANIAL NERVES: Yes CN normal except as noted SPEECH: speech normal SENSORY EXAM: No sensory level loss detected MOTOR EXAM: 5/5 motor strength present throughout Psych: COMMON NORMALS: Normal thought process present and speech normal APPEARANCE: Yes grossly normal ATTITUDE: Yes calm and Yes engaged ACTIVITY/MOTOR BEHAVIOR: Yes appropriate eye contact SPEECH: Yes normal speech MOOD & AFFECT: Yes euthymic mood THOUGHT PROCESS: Normal thought process present THOUGHT CONTENT: Yes Normal thought content present ATTENTION/CONCENTRATION: Yes attention grossly intact MEMORY/COGNITION: Yes memory grossly intact Skin: NARRATIVE SKIN EXAM: R. thigh with crusted lesions that do not cross the midline. His bilateral lower extremity skin is thick and stiff, but not hyperkeratotic yet. Urinary Catheter Management: Reddy: Cath Placed During This Visit: no Reason for Continuing Indwelling Catheter: Acute Urinary Retention or Obstruction Data 10/27/23 06:39 10/27/23 06:39 A&P Assessment and plan (1) Alcoholism: (2) Diastolic CHF: Qualifiers: Heart failure chronicity: acute on chronic Qualified Code(s): I50.33 - Acute on chronic diastolic (congestive) heart failure (3) Thrombocytopenia: (4) Obesity: Qualifiers: Body mass index: BMI 40.0-44.9 Obesity classification: adult class 3 (BMI >= 40) Obesity type: due to excess calories Serious obesity comorbidity presence: unspecified whether serious comorbidity present Qualified Code(s): E66.01 - Morbid (severe) obesity due to excess calories; Z68.41 - Body mass index [BMI] 40.0-44.9, adult (5) Alcoholic cirrhosis of liver: Qualifiers: Ascites presence: with ascites Qualified Code(s): K70.31 - Alcoholic cirrhosis of liver with ascites (6) Hepatic encephalopathy: (7) Anemia: Qualifiers: Anemia type: unspecified type Qualified Code(s): D64.9 - Anemia, unspecified (8) Shingles: Qualifiers: Herpes zoster complications: without complications Qualified Code(s): B02.9 - Zoster without complications (9) Cellulitis: Qualifiers: Laterality: right Site of cellulitis of extremity: lower extremity (10) COPD (chronic obstructive pulmonary disease): Qualifiers: COPD type: unspecified COPD Qualified Code(s): J44.9 - Chronic obstructive pulmonary disease, unspecified Plan Mr. Reynolds is a 58yo man w/ HFpEF, COPD, chronic hypoxic respiratory failure, class III obesity, current Alcohol Use d/o, Decompensated Liver cirrhosis due to alcohol, who presented to [facility] with complaints of dyspnea, increased lower extremity edema, and a developing cellulitis on rash on his R. thigh and buttocks. He was admitted for volume overload, secondary to anasarca, Acute on chronic HFpEF, VZV rash, and a R. hip and thigh cellulitis. On admission, paracentesis was ordered, but he was deemed insufficient fluid for paracentesis. He was diuresed with Lasix, albumin, and Aldactone. He was also started on vancomycin, cefepime, and acyclovir for R. thigh cellulitis and a rash that was deemed to be due to shingles. On 10/23/2023, he was noted to be encephalopathic, and it was deemed to be due to hepatic encephalopathy. Given the elevated ammonia levels, he was started on scheduled lactulose. He was also switched to Doxycycline BID. #Anasarca: Possibly due to HFpEF vs liver cirrhosis #Acute on chronic HFpEF - Continue diuresis - strict Is & Os. He has a reddy catheter in place. Weaned to 3L NC today. Will also obtain CXR # Acute on chronic chronic hypoxic/hypercapneic respiratory failure: #current Alcohol Use d/o w/ concern for Alcohol w/drawal: On folic acid and thiamine. #Decompensated liver cirrhosis #Concern for Hepatic encephalopathy: Titrate lactulose to 3 BMs daily #Likely Anemia of chronic disease: F/u iron studies. Monitor cbc #Hx of Suspected GI bleed: requiring 4units prbc transfusion in 09/2023 hospitalization. Patient was to f/u outpatient for endoscopy. Unclear if he did f/u. class III obesity #Thrombocytopenia: Likely due to Liver cirrhosis. Continue to monitor. #Hypokalemia: Monitor K levels and Replace accordingly. #Hypomagnesemia: Monitor Mg levels and Replace accordingly. #Uncompensated Metabolic alkalosis: Acetazolamide started. ABG obtained on 4L on 10/27/2023 is 7.45/69/77. Will wean his O2 requirements. #R. thigh cellulitis: On Doxycycline since 10/23/2023 #Shingles. Continue Acyclovir #Myositis: Repeat CK improved. #COPD: not in exacerbation. Continue duonebs q6h prn. His long acting inhaler is not on formulary. I will speak to pharmacy about restarting him on the equivalent that is in the hospital formulary. #Hypothyroidism: Continue home meds. #Current tobacco use d/o and Marijuana use: Initiate Nicotine patch #Chronic back pain #Lumbar radiculopathy - Osteoarthritis of the Cervical and Lumbar spine noted on 02/2020 XR #Weakness and physical deconditioning: Patient has agreed to PT/OT & is open to going to rehab as outpatient #RUE swelling: Venous doppler US of the RUQ ordered. DVT ppx: Lovenox. Attestations Medical Necessity Statement*: Patient needs to remain hospitalized for Anasarca, derranged electrolytes requiring agressive replacement, acute on chronic hypoxic/hypercapnic respiratory failure, acute on chronic HFpEF, decompensated liver cirrhosis, and uncompensated metabolic acidosis, Coding Level of Care Code 83628 Diagnoses Alcoholism F10.20 Acute on chronic diastolic congestive heart failure I50.33 Heart failure chronicity: acute on chronic Thrombocytopenia D69.6 Class 3 severe obesity due to excess calories with body mass index (BMI) of 40.0 to 44.9 in adult, unspecified whether serious comorbidity present E66.01; Z68.41 Body mass index: BMI 40.0-44.9 Obesity classification: adult class 3 (BMI >= 40) Obesity type: due to excess calories Serious obesity comorbidity presence: unspecified whether serious comorbidity present Alcoholic cirrhosis of liver with ascites K70.31 Ascites presence: with ascites Hepatic encephalopathy K76.82 Anemia, unspecified type D64.9 Anemia type: unspecified type Herpes zoster without complication B02.9 Herpes zoster complications: without complications Cellulitis L03.90 Laterality: right Site of cellulitis of extremity: lower extremity Chronic obstructive pulmonary disease, unspecified COPD type J44.9 COPD type: unspecified COPD
--- NOTE | 2023-10-27 10:13 | XR_ITS ---
WS: [id number] EXAM: Chest 1 view. INDICATION: History of cough. Exam date: November 25, 2023. COMPARISON: November 18, 2023. FINDINGS: The heart is enlarged. The mediastinum not widened The markings appear increased with pulmonary venous hypertension. While the minor fissure is thickene d no large pleural effusions are appreciated. IMPRESSION: There is cardiomegaly. The lung markings are increased bilaterally suggesting pulmonary venous hypert ension. If symptoms persist PA and lateral chest imaging would be of benefit.
[2023-10-27] MEDS: potassium chloride ER 20 mEq Tablet 40 MEQ PO (11:02)
[2023-10-27] MEDS: ipratropium-albuterol 3 mL Neb INHALATION (11:06)
[2023-10-27] MEDS: magnesium sulfate premix 4 GM/100 ML PREMIX IV (11:53)
[2023-10-27 12:25] LABS: Glucose Point of Care 173 mg/dL (70-110)
[2023-10-27] MEDS: levothyroxine 50 mcg Tablet PO (13:08)
[2023-10-27 16:56] LABS: Glucose Point of Care 125 mg/dL (70-110)
--- NOTE | 2023-10-27 17:12 | PC.OT ---
OT treatment attempted with patient declining; will attempt at later time.
[2023-10-27] MEDS: lactulose oral liq 20 gm/30 mL UDC 40 GM PO (17:24)
[2023-10-27] MEDS: trazodone 100 mg Tablet 200 MG PO (20:25)
[2023-10-27] MEDS: enoxaparin 30 mg/0.3 mL Syringe SUBCUT (20:25)
[2023-10-27 21:18] LABS: Glucose Point of Care 150 mg/dL (70-110)
[2023-10-28] VITALS (8 sets, daily range): BP systolic 127–151; BP diastolic 67–74; PULSE 62–75; RESP 18; TEMP 36.4–36.9; O2SAT 91–97; BMI 42.5
[2023-10-28 06:12] LABS: Basophils # 0.1 10^3/uL (0.0-0.1); Basophils % 1.3 %; Eosinophils # 0.1 10^3/uL (0.0-0.8); Eosinophils % 2.3 %; Lymphocytes # 1.6 10^3/uL (0.8-4.8); Lymphocytes % 39.9 %; Mean Corpuscular HGB Conc 28.6 g/dL (30-55); Mean Corpuscular Hemoglobin 24.4 pg (27-33); Mean Corpuscular Volume 85.4 fl (82-101); Mean Platelet Volume 9.7 fL (7.4-10.4); Monocytes # 0.7 10^3/uL (0.2-0.9); Monocytes % 16.6 %; Neutrophils # 1.55 10^3/uL (1.8-7.7); Neutrophils % 39.6 %; Nucleated Red Blood Cells % 0 %; Platelet Count 105 10^3/cmm (157-399); Red Blood Count 3.28 10^6/uL (3.85-5.65); Red Cell Distribution Width 22.6 % (12.1-15.1); White Blood Count 3.91 10^3/uL (3.29-11.43)
[2023-10-28 06:33] LABS: Alanine Aminotransferase 24 U/L (0-41); Albumin Level 2.6 g/dL (3.5-5.2); Alkaline Phosphatase 86 U/L (40-130); Anion Gap 8.5 (5-19); Aspartate Amino Transferase 76 U/L (0-40); Blood Urea Nitrogen 6 mg/dL (6-20); Calcium 8.3 mg/dL (8.5-10.5); Chloride 91 mmol/L (98-107); Globulin 4.7 g/dL (1.3-4.6); Glomerular Filtration Rate 171.4 mL/min (90-130); Glucose 109 mg/dL (65-115); Magnesium 1.6 mg/dL (1.7-2.3); Osmolality Calculated 282 mOsm/kg (285-295); Phosphorus 2.9 mg/dL (2.5-4.5); Potassium 3.5 mmol/L (3.5-5.1); Sodium 137 mmol/L (136-145); Total Bilirubin 1.5 mg/dL (0.15-1.2); Total Protein 7.3 g/dL (6.6-8.7)
[2023-10-28 06:40] LABS: Carbon Dioxide 41 mmol/L (22-29)
[2023-10-28 07:34] LABS: Slide Review Slide Review Perform
[2023-10-28 07:56] LABS: Glucose Point of Care 106 mg/dL (70-110)
[2023-10-28] MEDS: magnesium oxide 400 mg tablet PO ×2 (08:27→17:54)
[2023-10-28] MEDS: multivitamin therapeutic Tablet 1 TAB PO (08:27)
[2023-10-28] MEDS: spironolactone 25 mg Tablet 50 MG PO (08:27)
[2023-10-28] MEDS: folic acid 1 mg Tablet PO (08:27)
[2023-10-28] MEDS: acyclovir 800 mg Tablet PO ×4 (08:27→20:26)
[2023-10-28] MEDS: doxycycline 100 mg Tablet PO ×2 (08:27→17:54)
[2023-10-28] MEDS: thiamine 100 mg Tablet PO (08:27)
[2023-10-28] MEDS: lactulose oral liq 20 gm/30 mL UDC 40 GM PO (08:28)
[2023-10-28 11:08] LABS: Glucose Point of Care 159 mg/dL (70-110)
[2023-10-28] MEDS: levothyroxine 50 mcg Tablet PO (13:04)
--- NOTE | 2023-10-28 16:00 | PC.OT ---
OT treatment session attempted; this OT handed pt a washcloth to wash face and pt stated he would like to go back to sleep and declines to participate in rest of session. Will attempt at later time.
[2023-10-28 16:17] LABS: Glucose Point of Care 145 mg/dL (70-110)
[2023-10-28] MEDS: magnesium sulfate premix 4 GM/100 ML PREMIX IV (17:53)
[2023-10-28] MEDS: enoxaparin 30 mg/0.3 mL Syringe SUBCUT (20:26)
[2023-10-28] MEDS: trazodone 100 mg Tablet 200 MG PO (20:26)
--- NOTE | 2023-10-28 20:52 | P.PN_ITS ---
Subjective 2 Subjective: He denies f/c, dizziness, light headedness, headaches. He continues to endorse weakness. Vitals/I&O/Wt Last Vital Signs Temp 98.1 F 10/28/23 20:00 Pulse 75 10/28/23 20:00 Resp 18 10/28/23 20:00 BP 137/67 10/28/23 20:00 Pulse Ox 91 10/28/23 20:00 O2 Del Method Nasal Cannula 10/28/23 20:00 O2 Flow Rate 4 10/28/23 20:00 10/28/23 10/28/23 10/28/23 06:59 14:59 22:59 Intake Total 240 / 800 720 / 720 460 / 1180 Output Total 1700 / 3750 900 / 900 Balance -1460 / -2950 720 / 720 -440 / 280 Weight last 48 hrs Weight 123.15 kg Weight 125.22 kg Physical Exam 2 Const: GENERAL APPEARANCE: cooperative and comfortable NUTRITIONAL APPEARANCE: obese ORIENTATION/CONSCIOUSNESS: Yes awake, Yes oriented to person, Yes oriented to place and Yes oriented to time HENMT: COMMON NORMALS: normocephalic, atraumatic, external ears normal and Normal external nose present HEAD & SCALP: normocephalic and atraumatic F JAMAL & SINUS: normal facial exam NOSE: Normal external nose present E XTERNAL EAR: Yes external ears normal MOUTH: Normal oral and palatal mucosa present THROAT: posterior oropharynx normal Eye: COMMON NORMALS: Equal, round and reactive pupils present PUPIL: Yes Equal, round and reactive pupils present EOM: No EOM abnormal Neck/C-Spine: COMMON NORMALS: Thyroid normal GENERAL: Yes normal visual inspection and Yes trachea midline THYROID: Thyroid normal CAROTIDS: Yes normal carotid upstroke CERVICAL SPINE: Yes cervical ROM normal Lymph: LYMPHATIC: No lymphadenopathy Resp: OTHER: Crackles and diminished breath sounds in the bilateral lower lung ramirez. Cardio: OTHER: RRR, no m/r/g/clicks GI: OTHER: BS positive, nontender, nondistended, no rigidity, no guarding, no rebound tenderness, no hepatosplenomegaly. Extremity: NARRATIVE EXTREMITY EXAM: 3+ pitting edema to the hips - improving Neuro: SENSORIUM/ORIENTATION: Yes oriented to person, Yes oriented to place and Yes oriented to time CRANIAL NERVES: Yes CN normal except as noted S PEECH: speech normal SENSORY EXAM: No sensory level loss detected MOTOR EXAM: 5/5 motor strength present throughout Psych: COMMON NORMALS: Normal thought process present and speech normal A PPEARANCE: Yes grossly normal ATTITUDE: Yes calm and Yes engaged A CTIVITY/MOTOR BEHAVIOR: Yes appropriate eye contact SPEECH: Yes normal speech MOOD & AFFECT: Yes euthymic mood THOUGHT PROCESS: Normal thought process present THOUGHT CONTENT: Yes Normal thought content present A TTENTION/CONCENTRATION: Yes attention grossly intact MEMORY/COGNITION: Yes memory grossly intact Skin: COMMON NORMALS: no rashes or lesions noted NARRATIVE SKIN EXAM: R. thigh with crusted lesions that do not cross the midline. His bilateral lower extremity skin is thick and stiff, but not hyperkeratotic yet. GENERAL SKIN EXAM: no rashes or lesions noted Urinary Catheter Management: Reddy: Cath Placed During This Visit: no Reason for Continuing Indwelling Catheter: Assist Healing of Perineal & Sacral Wounds- Incontinent Patients Data 10/29/23 04:33 10/29/23 04:33 A&P Assessment and plan (1) Alcoholism: (2) Diastolic CHF: Qualifiers: Heart failure chronicity: acute on chronic Qualified Code(s): I50.33 - Acute on chronic diastolic (congestive) heart failure (3) Thrombocytopenia: (4) Obesity: Qualifiers: Body mass index: BMI 40.0-44.9 Obesity classification: adult class 3 (BMI >= 40) Obesity type: due to excess calories Serious obesity comorbidity presence: unspecified whether serious comorbidity present Qualified Code(s): E66.01 - Morbid (severe) obesity due to excess calories; Z68.41 - Body mass index [BMI] 40.0-44.9, adult (5) Alcoholic cirrhosis of liver: Qualifiers: Ascites presence: with ascites Qualified Code(s): K70.31 - Alcoholic cirrhosis of liver with ascites (6) Hepatic encephalopathy: (7) Anemia: Qualifiers: Anemia type: unspecified type Qualified Code(s): D64.9 - Anemia, unspecified (8) Shingles: Qualifiers: Herpes zoster complications: without complications Qualified Code(s): B 02.9 - Zoster without complications (9) Cellulitis: Qualifiers: Laterality: right Site of cellulitis of extremity: lower extremity (10) COPD (chronic obstructive pulmonary disease): Qualifiers: COPD type: unspecified COPD Qualified Code(s): J44.9 - Chronic obstructive pulmonary disease, unspecified Plan Mr. Reynolds is a 58yo man w/ HFpEF, COPD, chronic hypoxic respiratory failure, class III obesity, current Alcohol Use d/o, Decompensated Liver cirrhosis due to alcohol, who presented to [facility] with complaints of dyspnea, increased lower extremity edema, and a developing cellulitis on rash on his R. thigh and buttocks. He was admitted for volume overload, secondary to anasarca, Acute on chronic HFpEF, VZV rash, and a R. hip and thigh cellulitis. On admission, paracentesis was ordered, but he was deemed insufficient fluid for paracentesis. He was diuresed with Lasix, albumin, and Aldactone. He was also started on vancomycin, cefepime, and acyclovir for R. thigh cellulitis and a rash that was deemed to be due to shingles. On 10/23/2023, he was noted to be encephalopathic, and it was deemed to be due to hepatic encephalopathy. Given the elevated ammonia levels, he was started on scheduled lactulose. He was also switched to Doxycycline BID. #Anasarca: Possibly due to HFpEF vs liver cirrhosis. CXR suggests pulmonary hypertension. Will order 2 view CXR and ECHO and have him f/u w/ Cardiology. #Acute on chronic HFpEF - Continue diuresis - strict Is & Os. He has a reddy catheter in place. Weaned to 3L NC today. -Will also get a BNP, because at this time, I am not convinced that the patient's volume overload is cardiac related. # Acute on chronic chronic hypoxic/hypercapneic respiratory failure: #current Alcohol Use d/o w/ concern for Alcohol w/drawal: On folic acid and thiamine. #Decompensated liver cirrhosis #Concern for Hepatic encephalopathy: Titrate lactulose to 3 BMs daily #Likely Anemia of chronic disease: Iron sat of 21%. Monitor cbc #Hx of Suspected GI bleed: requiring 4units prbc transfusion in 09/2023 hospitalization. Patient was to f/u outpatient for endoscopy. Unclear if he did f/u. class III obesity #Thrombocytopenia: Likely due to Liver cirrhosis. Continue to monitor. #Hypokalemia: Monitor K levels and Replace accordingly. #Hypomagnesemia: Monitor Mg levels and Replace accordingly. #Uncompensated Metabolic alkalosis: possibly due to diuresis. Acetazolamide started. ABG obtained on 4L on 10/27/2023 is 7.45/69/77. Will wean his O2 requirements. #R. thigh cellulitis: He had cefepime for 3 days then switched to Doxycycline since 10/23/2023 #Shingles. Continue Acyclovir - since 10/23/2023. His lesions are nicely crusted. #Myositis: Repeat CK improved. #COPD: not in exacerbation. Continue duonebs q6h prn. His long acting inhaler is not on formulary. I will speak to pharmacy about restarting him on the equivalent that is in the hospital formulary. #Hypothyroidism: Continue home meds. #Current tobacco use d/o and Marijuana use: Initiate Nicotine patch #Chronic back pain #Lumbar radiculopathy - Osteoarthritis of the Cervical and Lumbar spine noted on 02/2020 XR #Weakness and physical deconditioning: Patient has agreed to PT/OT & is open to going to rehab as outpatient #RUE swelling: Venous doppler US of the RUQ ordered. DVT ppx: Lovenox. Discharge planning: Patient keeps vacilating between SNF for rehab and wanting to go home. His mother, who uses a wheelchair for ambulation, states that she herself has heart disease and has a cardiac stent, and that she cannot take care of the patient. The patient's mother would also like the patient to get his affairs in order. Specifically she wants the patient to make plans for his grandson, her great grandson. 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 I spoke with the patient extensively about his need to make appropriate plans for his grandson, and to use his current diagnoses as a motivation to stop drinking and improve his health. The patient stated that he would stop drinking, and that he would make plans for his grandson. Attestations 2 Medical Necessity Statement*: Patient remains hospitalized getting diuresis, while waiting for acceptance from SNF. Coding Level of Care Code 36552 Diagnoses Alcoholism F10.20 Acute on chronic diastolic congestive heart failure I50.33 Heart failure chronicity: acute on chronic Thrombocytopenia D69.6 Class 3 severe obesity due to excess calories with body mass index (BMI) of 40.0 to 44.9 in adult, unspecified whether serious comorbidity present E66.01; Z68.41 Body mass index: BMI 40.0-44.9 Obesity classification: adult class 3 (BMI >= 40) Obesity type: due to excess calories Serious obesity comorbidity presence: unspecified whether serious comorbidity present Alcoholic cirrhosis of liver with ascites K70.31 Ascites presence: with ascites Hepatic encephalopathy K76.82 Anemia, unspecified type D64.9 Anemia type: unspecified type Herpes zoster without complication B02.9 Herpes zoster complications: without complications Cellulitis L03.90 Laterality: right Site of cellulitis of extremity: lower extremity Chronic obstructive pulmonary disease, unspecified COPD type J44.9 COPD type: unspecified COPD
[2023-10-28 21:02] LABS: Glucose Point of Care 164 mg/dL (70-110)
--- NOTE | 2023-10-28 21:03 | USCV_ITS ---
Eliezer Reynolds Age: 58 Gender: M : 1965 Exam Date: 10/28/2023 22:03 Ordering Phys: Becki Giles MD Technologist: NOE [place] [facility] [place]: RUE edema. chronic cirrhosis, COPD, CHF, History of fluid overload. History of RUE edema. On Lasix, Hx orthopnea. HISTORY: RUE edema. chronic cirrhosis, COPD, CHF, History of fluid overload. History of RUE edema. On Lasix, Hx orthopnea. Patient is unresponsive in Respiratory Isolation in [id number]. PROCEDURES: Venous duplex imaging was performed in only the right upper extremity. The following venous structures were evaluated: internal jugular vein, subclavian vein, axillary vein, and brachial veins. In addition, the basilic vein, cephalic vein, radial vein, and ulnar vein. Serial compression, augmentation maneuvers, and spectral Doppler flow evaluation were performed, which were normal. In the RIGHT upper extremity, the RIGHT IJV, RT Subclavian vein, RT Axillary Vein, RT, Basilic Vein, RT Brachial Veins, RT Cephalic vein, RT Radial and Ulnar veins were examined in the usual manner. These veins were easily compressible with normal augmention. The venous flow profile is spontaneous but highly pulsatile, which is consistent with congestive heart failure / overload. No evidence of thrombus noted. CONCLUSIONS No evidence of thrombus of the right upper extremity veins. Hakeem Wilson MD (Electronically Signed) Final Date: 29 October 2023 08:53 S
[2023-10-28] MEDS: albumin 25 G/100 ML BAG 60 G IV (21:32)
[2023-10-28] MEDS: FUROsemide 10 mg/mL SDV 10mL 60 MG IVP (21:32)
[2023-10-29] VITALS (7 sets, daily range): BP systolic 129–142; BP diastolic 63–70; PULSE 62–81; RESP 16–20; TEMP 36.5–37; O2SAT 91–97; BMI 42.7
[2023-10-29 00:12] LABS: Ferritin 228 ng/mL (30-400); Iron 33 ug/dL (59-158); Percent Saturation 20.3 % (20-50); Total Iron Binding Capacity 162 mcg/dl; Unsaturated Iron Binding 129 ug/dL (112-347)
[2023-10-29 04:43] LABS: Basophils # 0.1 10^3/uL (0.0-0.1); Basophils % 1.3 %; Eosinophils # 0.1 10^3/uL (0.0-0.8); Eosinophils % 2.3 %; Hematocrit 27.3 % (37-53); Lymphocytes # 1.7 10^3/uL (0.8-4.8); Lymphocytes % 41.9 %; Mean Corpuscular HGB Conc 28.2 g/dL (30-55); Mean Corpuscular Hemoglobin 24.2 pg (27-33); Mean Corpuscular Volume 85.8 fl (82-101); Mean Platelet Volume 9.4 fL (7.4-10.4); Monocytes # 0.5 10^3/uL (0.2-0.9); Monocytes % 13.5 %; Neutrophils # 1.62 10^3/uL (1.8-7.7); Nucleated Red Blood Cells % 0 %; Platelet Count 102 10^3/cmm (157-399); Red Blood Count 3.18 10^6/uL (3.85-5.65); Red Cell Distribution Width 22.7 % (12.1-15.1); White Blood Count 3.94 10^3/uL (3.29-11.43)
[2023-10-29 05:06] LABS: Slide Review Slide Review Perform
[2023-10-29 05:09] LABS: Alanine Aminotransferase 23 U/L (0-41); Albumin Level 2.8 g/dL (3.5-5.2); Alkaline Phosphatase 95 U/L (40-130); Anion Gap 6.6 (5-19); Aspartate Amino Transferase 65 U/L (0-40); Blood Urea Nitrogen 9 mg/dL (6-20); Calcium 8.5 mg/dL (8.5-10.5); Chloride 91 mmol/L (98-107); Creatinine Clr Calc Pharmacy 170.8417; Globulin 4.7 g/dL (1.3-4.6); Glomerular Filtration Rate 138.9 mL/min (90-130); Glucose 96 mg/dL (65-115); Magnesium 1.6 mg/dL (1.7-2.3); Osmolality Calculated 287 mOsm/kg (285-295); Phosphorus 3.6 mg/dL (2.5-4.5); Potassium 3.6 mmol/L (3.5-5.1); Sodium 139 mmol/L (136-145); Total Bilirubin 1.5 mg/dL (0.15-1.2); Total Protein 7.5 g/dL (6.6-8.7)
[2023-10-29 05:13] LABS: Carbon Dioxide 45 mmol/L (22-29)
[2023-10-29 07:11] LABS: Glucose Point of Care 104 mg/dL (70-110)
[2023-10-29] MEDS: acetaZOLAMIDE 250 mg Tablet 500 MG PO (07:47)
[2023-10-29] MEDS: acyclovir 800 mg Tablet PO ×2 (07:48→12:23)
[2023-10-29] MEDS: lactulose oral liq 20 gm/30 mL UDC 40 GM PO (07:49)
[2023-10-29] MEDS: spironolactone 25 mg Tablet 50 MG PO (07:50)
[2023-10-29] MEDS: magnesium oxide 400 mg tablet PO (07:51)
[2023-10-29] MEDS: thiamine 100 mg Tablet PO (07:52)
[2023-10-29] MEDS: doxycycline 100 mg Tablet PO (07:52)
[2023-10-29] MEDS: multivitamin therapeutic Tablet 1 TAB PO (07:52)
[2023-10-29] MEDS: folic acid 1 mg Tablet PO (07:53)
[2023-10-29 09:26] LABS: NT Pro B Type Natriuretic Pept 141 pg/mL (0-125)
[2023-10-29 09:56] LABS: SARS Covid-2 Antigen negative (Negative)
--- NOTE | 2023-10-29 10:07 | XR_ITS ---
WS: [id number] Examination: XR chest 2V* [id number] Reason for Exam: evaluate for pulmonary hypertension Date: 10/29/2023 Comparison: 10/27/2023 Findings: There is cardiomegaly. There is cephalization of flow with pulmonary venous hypertension. Overt failu re is not seen. The markings appear less prominent than on the previous study. There is no large effu polly. There is no dense consolidation. Impression: There is cardiomegaly and evidence of pulmonary venous hypertension the lung markings appear less pro minent than on the previous study.
--- NOTE | 2023-10-29 11:15 | PM.DCS ---
Discharge Providers Date of Admission: 10/20/23 14:32 Date of Discharge: October 29, 2023 Attending Provider at Admission: Nahid Georges MD Attending Provider at Discharge: Becki Giles MD Primary Care Provider: Elizabeth Gagnon MD Diagnoses at Discharge Discharge Diagnosis (1) Alcoholism: Status: Inactive (2) Diastolic CHF: Status: Inactive Qualifiers: Heart failure chronicity: acute on chronic Qualified Code(s): I50.33 - Acute on chronic diastolic (congestive) heart failure (3) Thrombocytopenia: Status: Inactive (4) Obesity: Status: Inactive Qualifiers: Body mass index: BMI 40.0-44.9 Obesity classification: adult class 3 (BMI >= 40) Obesity type: due to excess calories Serious obesity comorbidity presence: unspecified whether serious comorbidity present Qualified Code(s): E66.01 - Morbid (severe) obesity due to excess calories; Z68.41 - Body mass index [BMI] 40.0-44.9, adult (5) Alcoholic cirrhosis of liver: Status: Inactive Qualifiers: Ascites presence: with ascites Qualified Code(s): K70.31 - Alcoholic cirrhosis of liver with ascites (6) Hepatic encephalopathy: Status: Inactive (7) Anemia: Status: Inactive Qualifiers: Anemia type: unspecified type Qualified Code(s): D64.9 - Anemia, unspecified (8) Shingles: Status: Inactive Qualifiers: Herpes zoster complications: without complications Qualified Code(s): B02.9 - Zoster without complications (9) Cellulitis: Status: Resolved Qualifiers: Laterality: right Site of cellulitis of extremity: lower extremity (10) COPD (chronic obstructive pulmonary disease): Status: Inactive Qualifiers: COPD type: unspecified COPD Qualified Code(s): J44.9 - Chronic obstructive pulmonary disease, unspecified Reason for Visit Reason for Visit: Swelling Hospital Course Hospital Course Mr. Reynolds is a 58yo man w/ HFpEF, COPD, chronic hypoxic respiratory failure, class III obesity, current Alcohol Use d/o, Decompensated Liver cirrhosis due to alcohol, who presented to [facility] with complaints of dyspnea, increased lower extremity edema, and a developing cellulitis on rash on his R. thigh and buttocks. He was admitted for volume overload, secondary to anasarca, Acute on chronic HFpEF, VZV rash, and a R. hip and thigh cellulitis. On admission, paracentesis was ordered, but he was deemed insufficient fluid for paracentesis. He was diuresed with Lasix, albumin, and Aldactone. He was also started on vancomycin, cefepime, and acyclovir for R. thigh cellulitis and a rash that was deemed to be due to shingles. On 10/23/2023, he was noted to be encephalopathic, and it was deemed to be due to hepatic encephalopathy. Given the elevated ammonia levels, he was started on scheduled lactulose. He was also switched to Doxycycline BID on . He was diuresed aggressively. A CXR obtained was concerning for pulmonary HTN, so a 2 view CXR was obtained that was less suggestive for Pulm HTN. He continued to have pedal edema despite diuresis. A BNP obtained was 145. It was thought that his pedal edema was due to his Decompensated liver cirrhosis than his HFpEF. He was informed of this on the day of discharge when he complained that he was not better than when he presented to the hospital. His Doxycycline and Acyclovir were discontinued on discharge. #Anasarca #Acute on chronic HFpEF # Acute on chronic chronic hypoxic/hypercapneic respiratory failure: #current Alcohol Use d/o w/ concern for Alcohol w/drawal: On folic acid and thiamine. #Decompensated liver cirrhosis #Concern for Hepatic encephalopathy: Titrate lactulose to 3 BMs daily. He was discharged on Lactulose 40g daily. #Likely Anemia of chronic disease: Iron sat of 21%. #Hx of Suspected GI bleed: requiring 4units prbc transfusion in 09/2023 hospitalization. Patient was to f/u outpatient for endoscopy. Unclear if he did f/u. class III obesity #Thrombocytopenia: Likely due to Liver cirrhosis. #Hypokalemia #Hypomagnesemia #Uncompensated Metabolic alkalosis: possibly due to diuresis. #R. thigh cellulitis: He had cefepime for 3 days then switched to Doxycycline since 10/23/2023. #Shingles. Continue Acyclovir - since 10/23/2023. His lesions are nicely crusted. #Myositis #COPD: not in exacerbation. Continue duonebs q6h prn. His long acting inhaler is not on formulary. #Hypothyroidism: Continue home meds. #Current tobacco use d/o and Marijuana use: #Chronic back pain #Lumbar radiculopathy - Osteoarthritis of the Cervical and Lumbar spine noted on 02/2020 XR #Weakness and physical deconditioning: Patient has agreed to PT/OT & is open to going to rehab as outpatient #RUE swelling: due to IV infiltration. Venous doppler US of the RUQ was negative. Physical Exam Const: GENERAL APPEARANCE: cooperative and comfortable NUTRITIONAL APPEARANCE: obese ORIENTATION/CONSCIOUSNESS: Yes awake, Yes oriented to person, Yes oriented to place and Yes oriented to time HENMT: COMMON NORMALS: normocephalic, atraumatic, external ears normal and Normal external nose present HEAD & SCALP: normocephalic and atraumatic FACE & SINUS: normal facial exam NOSE: Normal external nose present EXTERNAL EAR: Yes external ears normal MOUTH: Normal oral and palatal mucosa present THROAT: posterior oropharynx normal Eye: COMMON NORMALS: Equal, round and reactive pupils present PUPIL: Yes Equal, round and reactive pupils present EOM: No EOM abnormal Neck/C-Spine: COMMON NORMALS: Thyroid normal GENERAL: Yes normal visual inspection and Yes trachea midline THYROID: Thyroid normal CAROTIDS: Yes normal carotid upstroke CERVICAL SPINE: Yes cervical ROM normal Lymph: LYMPHATIC: No lymphadenopathy Resp: OTHER: Crackles and diminished breath sounds in the bilateral lower lung ramirez. Cardio: OTHER: RRR, no m/r/g/clicks GI: OTHER: BS positive, nontender, nondistended, no rigidity, no guarding, no rebound tenderness, no hepatosplenomegaly. Extremity: NARRATIVE EXTREMITY EXAM: 3+ pitting edema to the hips - improving Neuro: SENSORIUM/ORIENTATION: Yes oriented to person, Yes oriented to place and Yes oriented to time CRANIAL NERVES: Yes CN normal except as noted SPEECH: speech normal SENSORY EXAM: No sensory level loss detected MOTOR EXAM: 5/5 motor strength present throughout Psych: COMMON NORMALS: Normal thought process present and speech normal APPEARANCE: Yes grossly normal ATTITUDE: Yes calm and Yes engaged ACTIVITY/MOTOR BEHAVIOR: Yes appropriate eye contact SPEECH: Yes normal speech MOOD & AFFECT: Yes euthymic mood THOUGHT PROCESS: Normal thought process present THOUGHT CONTENT: Yes Normal thought content present ATTENTION/CONCENTRATION: Yes attention grossly intact MEMORY/COGNITION: Yes memory grossly intact Skin: COMMON NORMALS: no rashes or lesions noted NARRATIVE SKIN EXAM: R. thigh with crusted lesions that do not cross the midline. His bilateral lower extremity skin is thick and stiff, but not hyperkeratotic yet. GENERAL SKIN EXAM: no rashes or lesions noted Urinary Catheter Management: Flores: Cath Placed During This Visit: no Reason for Continuing Indwelling Catheter: Assist Healing of Perineal & Sacral Wounds- Incontinent Patients Discharge Data Studies Completed and Pending Completed Studies During Hospitalization Category Date Time Status CXRP [XR chest 1V portable [id number]] Routine Exams 10/27/23 10:13 Completed XR chest 1V portable [id number] Stat Exams 10/20/23 10:57 Completed XR chest 2V* [id number] Routine Exams 10/29/23 10:07 Completed US abdomen lmt fluid [id number] Stat Ultrasound 10/20/23 13:37 Completed US venous duplex upper extremity RT [CV venous duplex Ultrasound 10/28/23 21:[address] [place] [id number]] Routine Pending at discharge Category Date Time Status CBC Auto Diff [Complete Blood Count w/Auto] AM LABS Lab 10/30/23 04:00 Ordered CMP [Comprehensive Metabolic Panel] AM LABS Lab 10/30/23 04:00 Ordered CV. echo complete* [id number] Routine Ultrasound 10/29/23 10:06 Ordered Laboratory Results WBC 3.94 10^3/uL (3.29-11.43) 10/29/23 04:33 RBC 3.18 10^6/uL (3.85-5.65) L 10/29/23 04:33 Hgb 7.70 g/dL (11.27-16.99) L 10/29/23 04:33 Hct 27.3 % (37-53) L 10/29/23 04:33 MCV 85.8 fl (82-101) 10/29/23 04:33 MCH 24.2 pg (27-33) L 10/29/23 04:33 MCHC 28.2 g/dL (30-55) L 10/29/23 04:33 RDW 22.7 % (12.1-15.1) H 10/29/23 04:33 Plt Count 102 10^3/cmm (157-399) L 10/29/23 04:33 MPV 9.4 fL (7.4-10.4) 10/29/23 04:33 Neut % (Auto) 41.0 % 10/29/23 04:33 Lymph % (Auto) 41.9 % 10/29/23 04:33 [place] % (Auto) 13.5 % 10/29/23 04:33 Eos % (Auto) 2.3 % 10/29/23 04:33 Baso % (Auto) 1.3 % 10/29/23 04:33 Neut # (Auto) 1.62 10^3/uL (1.8-7.7) L 10/29/23 04:33 Lymph # (Auto) 1.7 10^3/uL (0.8-4.8) 10/29/23 04:33 [place] # (Auto) 0.5 10^3/uL (0.2-0.9) 10/29/23 04:33 Eos # (Auto) 0.1 10^3/uL (0.0-0.8) 10/29/23 04:33 Baso # (Auto) 0.1 10^3/uL (0.0-0.1) 10/29/23 04:33 Nucleated RBC % (auto) 0 % 10/29/23 04:33 Nucleated RBCs # 0.0 /100WBC 10/29/23 04:33 ESR 57 mm/hr (0-10) H 10/20/23 11:25 PT 21.70 SECONDS (12.1-14.9) H 10/25/23 05:01 INR 1.82 (0.8-1.2) H 10/25/23 05:01 APTT 53.6 SECONDS (23.9-36.7) H 10/23/23 02:00 Specimen Type Arterial 10/26/23 17:57 Sample Site Radial, left 10/26/23 17:57 ABG pH 7.45 (7.35-7.45) 10/26/23 17:57 ABG pCO2 69.5 mmHg (35-45) H* 10/26/23 17:57 ABG pO2 76.9 mmHg (80.0-100.0) L 10/26/23 17:57 ABG PO2/FiO2 Ratio 0 10/26/23 17:57 ABG HCO3 48.1 mmol/L (22-26) H 10/26/23 17:57 ABG O2 Saturation 96.8 10/26/23 17:57 ABG Base Excess 21.4 mmol/L (-2.0-2.0) H 10/26/23 17:57 Ward Test Pos 10/26/23 17:57 A-a O2 Gradient 12.7 mmHg (5-10) H 10/26/23 17:57 Hematocrit 25.9 % (42-52) L 10/26/23 17:57 Hgb O2 Saturation 93.8 % (95-100) L 10/26/23 17:57 Carboxyhemoglobin 2.4 %THgb (0.4-20.1) 10/26/23 17:57 Methemoglobin 0.7 % (0.4-1.5) 10/26/23 17:57 Total Hemoglobin 8.5 g/dL (14-18) L 10/26/23 17:57 Sodium 138.0 mmol/L (131-143) 10/26/23 17:57 Potassium 2.9 mmol/L (3.5-5.0) L 10/26/23 17:57 Glucose 129.0 mg/dL (70-115) H 10/26/23 17:57 Ionized Calcium 1.1 mmol/L (1.1-1.4) 10/26/23 17:57 O2 Delivery Device Nc 10/26/23 17:57 O2 Liters/Min 4.0 % 10/26/23 17:57 FiO2 36.0 % 10/26/23 17:57 Day Care Home Provider ID Gd 10/26/23 17:57 Sodium 139 mmol/L (136-145) 10/29/23 04:33 Potassium 3.6 mmol/L (3.5-5.1) 10/29/23 04:33 Chloride 91 mmol/L (98-107) L 10/29/23 04:33 Carbon Dioxide 45 mmol/L (22-29) H* 10/29/23 04:33 Anion Gap 6.6 (5-19) 10/29/23 04:33 BUN 9 mg/dL (6-20) 10/29/23 04:33 Creatinine 0.6 mg/dL (0.7-1.2) L 10/29/23 04:33 GFR Calculation 138.9 mL/min (90-130) H 10/29/23 04:33 Glucose 96 mg/dL (65-115) 10/29/23 04:33 POC Glucose 104 mg/dL (70-110) 10/29/23 07:07 Estimat Average Glucose 123 10/21/23 04:25 Hemoglobin A1c 5.9 % (4.0-6.0) 10/21/23 04:25 Calculated Osmolality 287 mOsm/kg (285-295) 10/29/23 04:33 Lactic Acid 0.9 mmol/L (0.5-2.2) 10/21/23 04:25 Lactic Acid (Sepsis) 2.4 mmol/L (0.5-2.2) H 10/20/23 14:27 Lactate 1.0 mmol/L (0.5-2.2) 10/25/23 05:01 Calcium 8.5 mg/dL (8.5-10.5) 10/29/23 04:33 Phosphorus 3.6 mg/dL (2.5-4.5) 10/29/23 04:33 Magnesium 1.6 mg/dL (1.7-2.3) L 10/29/23 04:33 Iron 33 ug/dL (59-158) L 10/28/23 05:54 TIBC 162 mcg/dl 10/28/23 05:54 % Saturation 20.3 % (20-50) 10/28/23 05:54 Unsat Iron Binding 129 ug/dL (112-347) 10/28/23 05:54 Ferritin 228 ng/mL (30-400) 10/28/23 05:54 Total Bilirubin 1.5 mg/dL (0.15-1.2) H 10/29/23 04:33 AST 65 U/L (0-40) H 10/29/23 04:33 ALT 23 U/L (0-41) 10/29/23 04:33 Alkaline Phosphatase 95 U/L (40-130) 10/29/23 04:33 Ammonia 101 umol/L (16-60) H 10/27/23 06:39 Creatine Kinase 356 U/L (39-308) H* 10/27/23 06:39 Troponin T Baseline 19 ng/L (0-15) H 10/20/23 15:01 Troponin T 120 Minute 19.34 ng/L (0-15) H 10/20/23 17:06 Delta Troponin T 0.34 ABS# (0-10) 10/20/23 17:06 Troponin T Hi Sens 6Hr 19.68 ng/L (0-15) H 10/20/23 21:50 Troponin T Hi Sens 6Hr Delta 0.68 ng/L (0-12) 10/20/23 21:50 C-Reactive Protein 9.2 mg/L (0.0-4.9) H 10/25/23 05:01 NT-Pro-B Natriuret Pep 141 pg/mL (0-125) H 10/29/23 04:33 Total Protein 7.5 g/dL (6.6-8.7) 10/29/23 04:33 Albumin 2.8 g/dL (3.5-5.2) L 10/29/23 04:33 Globulin 4.7 g/dL (1.3-4.6) H 10/29/23 04:33 Triglycerides 44 mg/dL (0-150) 10/21/23 04:25 Cholesterol 82 mg/dL (0-200) 10/21/23 04:25 LDL Cholesterol, Calc 30 mg/dL (50-129) L 10/21/23 04:25 HDL Cholesterol 43 mg/dL (60-100) L 10/21/23 04:25 LDL/HDL Ratio 0.70 RATIO (0.00-3.22) 10/21/23 04:25 Cholesterol/HDL Ratio 1.91 mg/dL (1.0-5.00) 10/21/23 04:25 Lipase 66 U/L (13-60) H 10/20/23 11:25 Procalcitonin 0.14 ng/mL (0-0.5) 10/25/23 05:01 TSH 2.35 uIU/mL (0.27-4.20) 10/21/23 04:25 Urine Color Dark yellow (Yellow) 10/20/23 12:47 Urine Appearance Clear (CLEAR) 10/20/23 12:47 Urine pH 6 (5-7) 10/20/23 12:47 Ur Specific [place] 1.015 (1.005-1.030) 10/20/23 12:47 Urine Protein Neg (Negative) 10/20/23 12:47 Urine Glucose (UA) Norm (Normal) 10/20/23 12:47 Urine Ketones Negative (Negative) 10/20/23 12:47 Urine Blood Neg (Negative) 10/20/23 12:47 Urine Nitrate Negative (Negative) 10/20/23 12:47 Urine Bilirubin Neg (Negative) 10/20/23 12:47 Urine Urobilinogen 1 mg/dL (Negative) H 10/20/23 12:47 Ur Leukocyte Esterase Negative (Negative) 10/20/23 12:47 Vancomycin Trough 7.2 ug/mL (10-15) L 10/24/23 06:37 Urine Opiates Screen Positive ng/mL (Negative) H 10/20/23 12:47 Ur Barbiturates Screen Negative ng/mL (Negative) 10/20/23 12:47 Ur Phencyclidine Scrn Negative ng/mL (Negative) 10/20/23 12:47 Ur Amphetamines Screen Negative ng/mL (Negative) 10/20/23 12:47 U Benzodiazepines Scrn Negative ng/mL (Negative) 10/20/23 12:47 Urine Cocaine Screen Negative ng/mL (Negative) 10/20/23 12:47 U Marijuana (THC) Screen Negative ng/mL (Negative) 10/20/23 12:47 Ethyl Alcohol 21 mg/dL (0-10) H 10/20/23 11:25 Ethyl Alcohol 25 mg/dL (0-10) H 10/20/23 11:25 Serum Ketones Negative (Negative) 10/20/23 11:25 SARS-CoV-2 Ag (Rapid) negative (Negative) 10/29/23 08:40 Vitals Last Vital Signs Temp 98.3 F 10/29/23 07:58 Pulse 68 10/29/23 08:54 Resp 16 10/29/23 08:54 BP 142/68 10/29/23 07:58 Pulse Ox 96 10/29/23 08:54 O2 Del Method Nasal Cannula 10/29/23 08:54 O2 Flow Rate 4 10/29/23 08:54 Discharge Plan Discharge Patient Disposition: Home Condition: Stable Prescriptions: New furosemide 40 mg Tablet 40 mg PO BID 30 Days Qty: 60 0RF spironolactone 25 mg Tablet 50 mg PO BID 30 Days Qty: 120 0RF Thera 400 mcg Tablet 1 tab PO DAILY 30 Days Qty: 30 0RF Continued levothyroxine [Euthyrox] 50 mcg tablet 50 mcg PO DAILY@13 potassium chloride 10 mEq tablet extended release 10 meq PO DAILY@13 fluticasone furoate-vilanterol [Breo Ellipta] 100-25 mcg/dose blister with device 1 inh inhalation DAILY Qty: 60 0RF lidocaine 5 % adhesive patch,medicated See Rx Instructions .ROUTE .COMPLEX Rx Instructions: apply one patch transdermally as directed ON FOR 12H OFF FOR 12 HR as needed trazodone 50 mg Tablet 200 mg PO BEDTIME pantoprazole 40 mg tablet,delayed release (DR/EC) 40 mg PO DAILY@13 folic acid 1 mg tablet 1 mg PO DAILY@13 Discontinued furosemide 40 mg tablet 40 mg PO DAILY@13 Discharge Orders: Discharge Order (Routine); Ordered 10/29/23 Ordered By: Becki Giles Other Ambulatory Orders: DME: Oxygen (Order) Location: None Selected Ordered By: Becki Giles Referrals: Elizabeth Gagnon MD [Primary Care Provider] - (Please follow up on results of his ECHO. ) Discharge Diet: Low Salt Discharge Activity: Increase activity as tolerated Patient Instructions: Opioid Safety Activity Restrictions/Additional Instructions: Please have your Clinic Physician follow up on results of your Echocardiogram and refer you to a [employer] Clerk if it is deemed appropriate. Discharge Attestations Time Spent in Discharge Care*: greater than 30 min Status at Discharge: Behavioral status at discharge: [facility], Quality Metrics Clinical Quality Measures [ No reported AMI, CVA or VTE this stay] Coding Level of Care Code 88819 Diagnoses Alcoholism F10.20 Acute on chronic diastolic congestive heart failure I50.33 Heart failure chronicity: acute on chronic Thrombocytopenia D69.6 Class 3 severe obesity due to excess calories with body mass index (BMI) of 40.0 to 44.9 in adult, unspecified whether serious comorbidity present E66.01; Z68.41 Body mass index: BMI 40.0-44.9 Obesity classification: adult class 3 (BMI >= 40) Obesity type: due to excess calories Serious obesity comorbidity presence: unspecified whether serious comorbidity present Alcoholic cirrhosis of liver with ascites K70.31 Ascites presence: with ascites Hepatic encephalopathy K76.82 Anemia, unspecified type D64.9 Anemia type: unspecified type Herpes zoster without complication B02.9 Herpes zoster complications: without complications Cellulitis L03.90 Laterality: right Site of cellulitis of extremity: lower extremity Chronic obstructive pulmonary disease, unspecified COPD type J44.9 COPD type: unspecified COPD
[2023-10-29 12:05] LABS: Glucose Point of Care 168 mg/dL (70-110)
[2023-10-29] MEDS: potassium chloride ER 20 mEq Tablet PO (12:23)
[2023-10-29] MEDS: levothyroxine 50 mcg Tablet PO (12:23)
--- NOTE | 2023-10-29 12:50 | USCV_ITS ---
Eliezer Reynolds Age: 58 Gender: M : 1965 Exam Date: 10/29/2023 13:50 Ordering Phys: Becki Giles MD Technologist: [place] [facility] [place]: BP: 140 / 80 HR: Rhythm: Sinus Technical Quality: Adequate MEASUREMENTS (Male / Female) Normal Values 2D ECHO LVOT Diameter 2.4 cm LV Ejection Fraction MOD 2C 57.1 % LV Ejection Fraction 2C AL 0.0 % LA Diameter 4.3 cm Aorta at Sinotubular Diameter 3.0 cm M-MODE LA Ao Ratio MM 0.9 AV Cusp Separation MM 1.7 cm DOPPLER AV Peak Velocity 140.0 cm/s LVOT Peak Velocity 120.0 cm/s AV Area Cont Eq vti 4.5 cm squared AV Area Cont Eq pk 4.0 cm squared MV Peak Velocity 107.0 cm/s MV Area PHT 3.0 cm squared Mitral E to A Ratio 1.4 TV Peak E Velocity 66.0 cm/s Right Atrial Pressure 3.0 mmHg PV Peak Velocity 120.0 cm/s FINDINGS Left Ventricle Left ventricle is normal in size. LV systolic function is normal with EF of 55 to 60%. No regional wall motion abnormalities are seen. Right Ventricle Normal in size and function Right Atrium Normal in size Left Atrium Dilated Mitral Valve Structurally normal mitral valve. Trace mitral regurgitation. Aortic Valve Structurally normal aortic valve. No significant stenosis or regurgitation. Tricuspid Valve Mild tricuspid regurgitation. Insufficient TR jet to calculate RVSP. Pulmonic Valve Not well visualized Pericardium Normal Aorta Normal in size IVC Appears to be normal CONCLUSIONS LV systolic function is normal with EF of 55 to 60%. Left atrial dilation Trace mitral regurgitation Mild tricuspid regurgitation Compared to prior echocardiogram from 2021, no significant changes are seen Baltazar Michelle MD (Electronically Signed) Final Date: 30 October 2023 14:37 S
[2023-10-29] MEDS: potassium chloride ER 20 mEq Tablet 40 MEQ PO (13:10)
== END 2023-10-29 14:05 | disposition skilled nursing facility (03) | DRG 291 ==
LOC: ER 11:56 → MEDSURG 14:32
PROVIDERS: Internal Medicine; Admitting Provider Family Medicine; Emergency Provider Family Medicine; PCP Family Medicine; Visit Provider Internal Medicine
DX: I50.33 Acute on chronic diastolic (congestive) heart failure (principal); J96.21 Acute and chronic respiratory failure with hypoxia; J96.22 Acute and chronic respiratory failure with hypercapnia; E87.3 Alkalosis; E87.20 Acidosis, unspecified; D68.4 Acquired coagulation factor deficiency; E87.1 Hypo-osmolality and hyponatremia; Z68.41 Body mass index [BMI] 40.0-44.9, adult; L03.115 Cellulitis of right lower limb; L03.317 Cellulitis of buttock; J44.9 Chronic obstructive pulmonary disease, unspecified; K70.31 Alcoholic cirrhosis of liver with ascites; F10.20 Alcohol dependence, uncomplicated; E03.9 Hypothyroidism, unspecified; Z98.1 Arthrodesis status; F17.210 Nicotine dependence, cigarettes, uncomplicated; G89.29 Other chronic pain; M54.9 Dorsalgia, unspecified; E83.42 Hypomagnesemia; K76.82 Hepatic encephalopathy; M60.9 Myositis, unspecified; F12.90 Cannabis use, unspecified, uncomplicated; M47.26 Other spondylosis with radiculopathy, lumbar region; M47.812 Spondylosis without myelopathy or radiculopathy, cervical region; D63.8 Anemia in other chronic diseases classified elsewhere; D69.59 Other secondary thrombocytopenia; E66.01 Morbid (severe) obesity due to excess calories; B02.9 Zoster without complications
CPT/HCPCS: 36415; 36416; 36600; 71045; 71046; 76705; 80051; 80053; 80061; 80202; 80306; 80307; 81003; 82009; 82140; 82330; 82550; 82728; 82805; 82962; 83036; 83540; 83550; 83605; 83690; 83735; 83880; 84100; 84145; 84443; 84484; 85025; 85610; 85651; 85730; 86140; 87040; 87426; 93005; 93306; 93971; 94640; 94664; 96365; 96367; 96372; 96375; 97110; 97161; 97166; 97530; 97535; 99285; C9113; J0692; J1170; J1650; J1940; J2270; J2360; J3370; J3411; J3475; J3480; J8499; P9046

== ENCOUNTER 2023-11-18 19:44 | Inpatient (IN) | payer MEDICARE, OTHER, MEDICAID, SELFPAY ==
[2023-11-18 19:44] VITALS: BP 136/80; PULSE 80; RESP 18; O2SAT 93; BMI 35.9
[2023-11-18 19:52] VITALS: TEMP 36.4
--- NOTE | 2023-11-18 19:52 | ECG_ITS ---
[facility] Test Date: 2023-11-18 Pat Name: Eliezer Reynolds Department: Room: Gender: Male [employer] Judge: : 1965 Requested By: Behzad Soto Order Number: [id number] Chelsey MD: Baltazar Michelle M.D. Measurements Intervals [place] Rate: 84 P: 72 UT: 191 QRS: -85 QRSD: 123 T: 68 QT: 415 QTc: 493 Interpretive Statements SINUS RHYTHM LEFT ANTERIOR FASCICULAR BLOCK [QRS AXIS <= -45, QR IN I, RS IN II] POSSIBLE LATERAL MYOCARDIAL INFARCTION , OF INDETERMINATE AGE [30 ms Q WAVE IN I/aVL/V5/V6] Compared to ECG 10/20/2023 20:53:41 Left anterior fascicular block now present Myocardial infarct finding now present Right-axis deviation no longer present Electronically Signed On 11-19-2023 8:15:28 CDT by Baltazar Michelle M.D. [email or web address]
--- NOTE | 2023-11-18 19:54 | XRR_ITS ---
PROCEDURE INFORMATION: Exam: XR Chest Exam date and time: 11/18/2023 8:12 PM Age: 58 years old Clinical indication: Cough; Patient HX: SOB; AMS TECHNIQUE: Imaging protocol: Radiologic exam of the chest. Views: 1 view. COMPARISON: CR XR chest 2V* [id number] 10/29/2023 10:37 AM FINDINGS: Lungs: Bibasilar atelectasis versus infiltrate. Pulmonary vascular congestion. Pleural spaces: Unremarkable. No pleural effusion. No pneumothorax. Heart/Mediastinum: Cardiomegaly. Bones/joints: Unremarkable. XR/XR chest 1V portable [id number] IMPRESSION: 1. Cardiomegaly. 2. Bibasilar atelectasis versus infiltrate. 3. Pulmonary vascular congestion.
--- NOTE | 2023-11-18 19:54 | CTR_ITS ---
PROCEDURE INFORMATION: Exam: CT Head Without Contrast Exam date and time: 11/18/2023 8:49 PM Age: 58 years old Clinical indication: Altered mental status/memory loss; Additional info: AMS TECHNIQUE: Imaging protocol: Computed tomography of the head without contrast. Radiation optimization: All CT scans at this facility use at least one of these dose optimization techniques: automated exposure control; mA and/or kV adjustment per patient size (includes targeted exams where dose is matched to clinical indication); or iterative reconstruction. COMPARISON: CT head wo con* [id number] 09/13/2023 1:08 PM RADIATION DOSE METRICS: Total DLP (mGy-cm): 1154.58 FINDINGS: Brain: Normal. No hemorrhage. Unremarkable white matter. No mass effect. Cerebral ventricles: No ventriculomegaly. Paranasal sinuses: Visualized sinuses are unremarkable. No fluid levels. Mastoid air cells: Visualized mastoid air cells are well aerated. Bones/joints: Unremarkable. No acute fracture. Soft tissues: Unremarkable. CT/CT head wo con* [id number] IMPRESSION: No acute intracranial abnormality.
--- NOTE | 2023-11-18 19:57 | ED_ITS ---
HPI - Altered Mental Status 2 General: Chief Complaint: Altered Mental Status Stated Complaint: Lethargic Time Seen by Provider: 11/18/23 19:49 History of Present Illness: 58-year-old male presents to the emergen cy department via EMS personnel from his long-term care facility with worsening confusion. He does have a history of liver cirrhosis and has been prescribed lactulose. He has been previously admitted to the hospital with elevated ammonia levels. Patient is an extremely poor historian as he is significantly lethargic and drowsy. Review of Systems 2 General: Reports: ROS unobtainable due to medical condition and ROS unobtainable due to mental status PFSH ED 2 PFSH: Medical History Hepatic encephalopathy Obesity Diastolic CHF Shingles Alcoholism Alcoholic cirrhosis of liver Thrombocytopenia Anemia Alcohol withdrawal COPD exacerbation Acute encephalopathy GI bleeding Acute blood loss anemia Acidosis, lactic Rhabdomyolysis Acute GI bleeding Back pain Liver cirrhosis Congestive heart failure Anemia Ascites Lumbar radiculopathy, chronic Hypothyroid Alcoholism COPD (chronic obstructive pulmonary disease) Surgical History S/P laminectomy with spinal fusion Family History Father CAD (coronary artery disease) Social History Smoking and tobacco/nicotine status: current every day tobacco/nicotine user Physical Exam 2 Narrative: Constitutional: Patient appears lethargic and very drowsy. He is responsive to noxious stimuli he does appear to be very confused and is a poor historian. Morbidly obese appearance. Vital signs reviewed as documented. HENMT: Normocephalic, atraumatic. External ears normal appearance without drainage. Nose without drainage, normal appearance. Mucus membranes moist. Neck is supple, No jugular venous distension, trachea is midline, no appreciable carotid bruits. No lymphadenopathy. No meningeal signs. Flexion, extension and lateral rotation is without pain. Eyes: Pupils are equal, round, reactive to light. No scleral icterus. Thorax is symmetrical and with equal rise and fall with respirations. Resp: Lungs are clear to auscultation. No wheezes, rales, crackles or ronchi at present. Cardio: Regular rate and rhythm. Positive S1, S2. No appreciable murmurs, rubs or gallops. GI: Abdominal exam reveals normal bowel sounds to all quadrants. No obvious palpable masses noted. Soft, non-tender to palpation. Extremity: Extremities 2+ pulses in the upper and lower extremities. Brawny edema noted. Moves all extremities well, sensation in all extremities. Neuro: Lethargic, responsive to noxious stimuli, does intermittently respond by opening his eyes when requested and falls back to sleep. He moves all extremities and sensation it appears intact to the upper and lower extremities. Skin: No lesions, rashes. No gross abnormalities noted. Back: Symmetrical, no obvious deformity, No CVA tenderness Course 2 Vital Signs: Vital signs: Vital Signs Temperature 98.6 F 11/22/23 10:33 Pulse Rate 69 11/22/23 13:50 Respiratory Rate 24 H 11/22/23 13:50 Blood Pressure 119/62 11/22/23 13:50 Pulse Oximetry 95 11/22/23 10:33 Oxygen Delivery Me thod Nasal Cannula 11/22/23 07:51 Oxygen Flow Rate 3 11/22/23 07:51 MDM - Altered Mental Status Medical Decision Making Physical exam completed and documented I will obtain a CBC and CMP as well as ammonia level given the patient's previous medical history I am concerned that his differential diagnosis includes hepatic encephalopathy secondary to hyperammonemia, spontaneous bacterial peritonitis, electrolyte disturbance, I have contacted the hospitalist physician to request admission to the hospital given the patient's elevated ammonia level, lethargy/confusion and most likely diagnosis of hepatic encephalopathy. I did provide a CT scan of the head which was negative for acute findings. Medical Records I reviewed the patient's medical records. Lab Data I reviewed the patient's lab results. 11/22/23 03:15 11/22/23 03:15 Radiology Impressions Chest X-Ray 11/18/23 19:54 IMPRESSION: 1. Cardiomegaly. 2. Bibasilar atelectasis versus infiltrate. 3. Pulmonary vascular congestion. Abdomen/Pelvis CT 11/20/23 13:07 IMPRESSION: 1. Cholelithiasis with no changes of acute cholecystitis or biliary dilatation. 2. Peripheral pockets of air in the ascending and transverse colon that might be related to fecal material versus pneumatosis intestinalis in the right clinical setting. Head CT 11/21/23 10:37 IMPRESSION: No large territorial infarct or intracranial bleed. Laboratory Results WBC 5.06 10^3/uL (3.29-11.43) 11/18/23 20: RBC 4.22 10^6/uL (3.85-5.65) 11/18/23 20: Hgb 10.60 g/dL (11.27-16.99) L 11/18/23 20: Hct 35.2 % (37-53) L 11/18/23 20: MCV 83.4 fl (82-101) 11/18/23 20: MCH 25.1 pg (27-33) L 11/18/23 20: MCHC 30.1 g/dL (30-55) 11/18/23 20: RDW 23.2 % (12.1-15.1) H 11/18/23 20: Plt Count 160 10^3/cmm (157-399) 11/18/23 20: MPV 9.8 fL (7.4-10.4) 11/18/23 20: Neut % (Auto) 42.8 % 11/18/23 20: Lymph % (Auto) 43.9 % 11/18/23 20: [place] % (Auto) 9.1 % 11/18/23 20: Eos % (Auto) 3.0 % 11/18/23 20: Baso % (Auto) 1.0 % 11/18/23 20: Neut # (Auto) 2.17 10^3/uL (1.8-7.7) 11/18/23 20: Lymph # (Auto) 2.2 10^3/uL (0.8-4.8) 11/18/23 20: [place] # (Auto) 0.5 10^3/uL (0.2-0.9) 11/18/23 20: Eos # (Auto) 0.2 10^3/uL (0.0-0.8) 11/18/23 20: Baso # (Auto) 0.1 10^3/uL (0.0-0.1) 11/18/23 20: Nucleated RBC % (auto) 0 % 11/18/23 20: Nucleated RBCs # 0.0 /100WBC 11/18/23 20:22 PT 17.70 SECONDS (12.1-14.9) H 11/18/23 20:22 INR 1.40 (0.8-1.2) H 11/18/23 20:22 APTT 49.3 SECONDS (23.9-36.7) H 11/18/23 20:22 Specimen Type Arterial 11/18/23 20:10 Sample Site Brachial, left 11/18/23 20:10 ABG pH 7.38 (7.35-7.45) 11/18/23 20:10 ABG pCO2 48.8 mmHg (35-45) H 11/18/23 20:10 ABG pO2 68.3 mmHg (80.0-100.0) L 11/18/23 20:10 ABG PO2/FiO2 Ratio 0 11/18/23 20:10 ABG HCO3 28.8 mmol/L (22-26) H 11/18/23 20:10 ABG O2 Saturation 92.8 11/18/23 20:10 ABG Base Excess 3.0 mmol/L (-2.0-2.0) H 11/18/23 20:10 Ward Test Pos 11/18/23 20:10 A-a O2 Gradient 20.1 mmHg (5-10) H 11/18/23 20:10 Hematocrit 31.2 % (42-52) L 11/18/23 20:10 Hgb O2 Saturation 90.4 % (95-100) L 11/18/23 20:10 Carboxyhemoglobin 1.9 %THgb (0.4-20.1) 11/18/23 20:10 Methemoglobin 0.7 % (0.4-1.5) 11/18/23 20:10 Total Hemoglobin 10.2 g/dL (14-18) L 11/18/23 20:10 Sodium 137.0 mmol/L (131-143) 11/18/23 20:10 Potassium 3.7 mmol/L (3.5-5.0) 11/18/23 20:10 Glucose 133.0 mg/dL (70-115) H 11/18/23 20:10 Ionized Calcium 1.2 mmol/L (1.1-1.4) 11/18/23 20:10 O2 Delivery Device Nc 11/18/23 20:10 O2 Liters/Min 4.0 % 11/18/23 20:10 FiO2 40.0 % 11/18/23 20:10 Combination Machine Tool Operator ID [email or web address] 11/18/23 20:10 Sodium 134 mmol/L (136-145) L 11/18/23 20:22 Potassium 3.9 mmol/L (3.5-5.1) 11/18/23 20:22 Chloride 96 mmol/L (98-107) L 11/18/23 20:22 Carbon Dioxide 27 mmol/L (22-29) 11/18/23 20:22 Anion Gap 14.9 (5-19) 11/18/23 20:22 BUN 17 mg/dL (6-20) 11/18/23 20:22 Creatinine 1.0 mg/dL (0.7-1.2) 11/18/23 20:22 GFR Calculation 77.0 mL/min (90-130) L 11/18/23 20:22 Glucose 124 mg/dL (65-115) H 11/18/23 20:22 Calculated Osmolality 281 mOsm/kg (285-295) L 11/18/23 20:22 Lactic Acid 2.0 mmol/L (0.5-2.2) 11/18/23 20:22 Calcium 9.0 mg/dL (8.5-10.5) 11/18/23 20:22 Total Bilirubin 1.7 mg/dL (0.15-1.2) H 11/18/23 20:22 AST 155 U/L (0-40) H 11/18/23 20:22 ALT 41 U/L (0-41) 11/18/23 20:22 Alkaline Phosphatase 120 U/L (40-130) 11/18/23 20:22 Ammonia 122 umol/L (16-60) H 11/18/23 20:22 NT-Pro-B Natriuret Pep < 36 pg/mL (0-125) 11/18/23 20:22 Total Protein 8.9 g/dL (6.6-8.7) H 11/18/23 20:22 Albumin 3.0 g/dL (3.5-5.2) L 11/18/23 20:22 Globulin 5.9 g/dL (1.3-4.6) H 11/18/23 20:22 Procalcitonin 0.17 ng/mL (0-0.5) 11/18/23 20:22 TSH 4.37 uIU/mL (0.27-4.20) H 11/18/23 20:22 Urine Color Yellow (Yellow) 11/18/23 20:34 Urine Appearance Clear (CLEAR) 11/18/23 20:34 Urine pH 6 (5-7) 11/18/23 20:34 Ur Specific Bradley 1.020 (1.005-1.030) 11/18/23 20:34 Urine Protein Neg (Negative) 11/18/23 20:34 Urine Glucose (UA) Norm (Normal) 11/18/23 20:34 Urine Ketones Negative (Negative) 11/18/23 20:34 Urine Blood Neg (Negative) 11/18/23 20:34 Urine Nitrate Negative (Negative) 11/18/23 20:34 Urine Bilirubin Neg (Negative) 11/18/23 20:34 Urine Urobilinogen 1 mg/dL (Negative) H 11/18/23 20:34 Ur Leukocyte Esterase Negative (Negative) 11/18/23 20:34 Urine Opiates Screen Negative ng/mL (Negative) 11/18/23 20:34 Ur Barbiturates Screen Negative ng/mL (Negative) 11/18/23 20:34 Ur Phencyclidine Scrn Negative ng/mL (Negative) 11/18/23 20:34 Ur Amphetamines Screen Negative ng/mL (Negative) 11/18/23 20:34 U Benzodiazepines Scrn Positive ng/mL (Negative) H 11/18/23 20:34 Urine Cocaine Screen Negative ng/mL (Negative) 11/18/23 20:34 U Marijuana (THC) Screen Negative ng/mL (Negative) 11/18/23 20:34 Ethyl Alcohol < 10 mg/dL (0-10) 11/18/23 20:22 Influenza Type A Ag negative (Negative) 11/18/23 20:18 Influenza Type B Ag negative (Negative) 11/18/23 20:18 SARS-CoV-2 Ag (Rapid) negative (Negative) 11/18/23 20:18 All radiology interpretation(s) finalized by discharge Discharge Plan Discharge Patient Disposition: Admitted As Inpatient Admit Provider: Lex Victoria Clinical Impression: Acute hepatic encephalopathy Altered mental status Qualifiers: Altered mental status type: unspecified Qualified Code(s): R41.82 - Altered mental status, unspecified Condition: Stable Coding Level of Care Code ED Straightedge Worker for Carlos Enrique Merritt
[2023-11-18 20:15] LABS: ABG PCO2 48.8 mmHg (35-45); ABG PH Result 7.38 (7.35-7.45); Alveolar-Arterial Oxygen Gradi 20.1 mmHg (5-10); Arterial Blood Gas Hematocrit 31.2 % (42-52); Blood Gas Allen Test Pos; Blood Gas Sample Site Brachial, left; Blood Gas Sample Type Arterial; Carboxyhemoglobin 1.9 %THgb (0.4-20.1); HCO3 ABG 28.8 mmol/L (22-26); HGB O2 Sat 90.4 % (95-100); Ionized Calcium Level - ABG 1.2 mmol/L (1.1-1.4); Methemoglobin 0.7 % (0.4-1.5); Oxygen Device NC; Oxygen Saturation ABG 92.8; PO2 ABG 68.3 mmHg (80.0-100.0); PO2 FiO2 Ratio Arterial Blood 0; Potassium Level - ABG 3.7 mmol/L (3.5-5.0); Total Hemoglobin 10.2 g/dL (14-18)
[2023-11-18 20:36] LABS: Basophils # 0.1 10^3/uL (0.0-0.1); Eosinophils # 0.2 10^3/uL (0.0-0.8); Hematocrit 35.2 % (37-53); Lymphocytes # 2.2 10^3/uL (0.8-4.8); Lymphocytes % 43.9 %; Mean Corpuscular HGB Conc 30.1 g/dL (30-55); Mean Corpuscular Hemoglobin 25.1 pg (27-33); Mean Corpuscular Volume 83.4 fl (82-101); Mean Platelet Volume 9.8 fL (7.4-10.4); Monocytes # 0.5 10^3/uL (0.2-0.9); Monocytes % 9.1 %; Neutrophils # 2.17 10^3/uL (1.8-7.7); Neutrophils % 42.8 %; Nucleated Red Blood Cells % 0 %; Platelet Count 160 10^3/cmm (157-399); Red Blood Count 4.22 10^6/uL (3.85-5.65); Red Cell Distribution Width 23.2 % (12.1-15.1); White Blood Count 5.06 10^3/uL (3.29-11.43)
[2023-11-18 20:37] LABS: Add Urine Microscopic? NO; Charge for UA Resulting for Rev
[2023-11-18 20:49] LABS: Influenza A by IFA negative (Negative); Influenza B by IFA negative (Negative); SARS Covid-2 Antigen negative (Negative)
[2023-11-18 20:52] LABS: Bilirubin Urine Neg (Negative); Blood Urine Neg (Negative); Glucose Urine UA Norm (Normal); Ketones Urine Negative (Negative); Leukocyte Esterase Urine Negative (Negative); Nitrate Urine Negative (Negative); Protein Urine Neg (Negative); Urine Appearance Clear (CLEAR); Urine Color Yellow (Yellow); Urobilinogen Urine 1 mg/dL (Negative); pH Urine 6 (5-7)
[2023-11-18 20:55] LABS: Amphetamines Screen Urine Negative (Negative); Barbiturates Screen Urine Negative (Negative); Benzodiazepines Screen Urine Positive (Negative); Cocaine Screen Urine Negative (Negative); Opiate Screen Urine Negative (Negative); PCP Screen Urine Negative (Negative); THC Screen Urine Negative (Negative)
[2023-11-18 20:58] LABS: Partial Thromboplastin Time 49.3 SECONDS (23.9-36.7)
[2023-11-18 21:09] LABS: Alcohol Level < 10 mg/dL (0-10)
[2023-11-18 21:12] LABS: Ammonia 122 umol/L (16-60)
[2023-11-18 21:17] LABS: NT Pro B Type Natriuretic Pept < 36 pg/mL (0-125); Procalcitonin 0.17 ng/mL (0-0.5)
[2023-11-18 21:29] LABS: Alanine Aminotransferase 41 U/L (0-41); Alkaline Phosphatase 120 U/L (40-130); Anion Gap 14.9 (5-19); Aspartate Amino Transferase 155 U/L (0-40); Blood Urea Nitrogen 17 mg/dL (6-20); Carbon Dioxide 27 mmol/L (22-29); Chloride 96 mmol/L (98-107); Creatinine Clr Calc Pharmacy 102.7807; Globulin 5.9 g/dL (1.3-4.6); Glucose 124 mg/dL (65-115); Osmolality Calculated 281 mOsm/kg (285-295); Potassium 3.9 mmol/L (3.5-5.1); Sodium 134 mmol/L (136-145); Total Bilirubin 1.7 mg/dL (0.15-1.2); Total Protein 8.9 g/dL (6.6-8.7)
[2023-11-18 22:00] VITALS: BP 149/80; PULSE 88; RESP 15; O2SAT 93
[2023-11-18 22:30] VITALS: BP 125/76; PULSE 84; RESP 16; O2SAT 95
--- NOTE | 2023-11-18 22:54 | PM.HP ---
Providers/Chief Complaint Primary Care Provider: Elizabeth Gagnon MD Chief Complaint: Lethargic History of Present Illness Eliezer Reynolds is a 58 year old male resident of [facility] came from senior living for worsening confusion. Ammonia level extremely high, patient has not been given lactulose at the senior living, he has history of alcoholic induced liver cirrhosis, he is on Lasix, spironolactone, he is full code, senior living notes reviewed. No recent fever reported. No recent abdominal pain or diarrhea. Patient not able provide history Extremely drowsy. ABG shows compensated pH CT head unremarkable, chest x-ray showing mild vascular congestion Review of Systems General: Reports: ROS unobtainable due to mental status Medications/Allergies Home Medications Medication Instructions Recorded Confirmed Last Taken Type levothyroxine 50 mcg tablet 50 mcg PO DAILY@11/18/21 11/18/23 11/18/23 History (Euthyrox) lidocaine 5 % topical patch See Rx Instructions .Route .COMPLEX 02/18/23 11/18/23 11/16/23 History trazodone 50 mg tablet 200 mg PO BEDTIME 02/28/23 11/16/23 Unknown History potassium chloride 10 mEq 10 meq PO DAILY@09/11/23 11/18/23 11/18/23 History tablet,extended release fluticasone furoate 100 1 inh inhalation DAILY #60 ea 09/14/23 11/18/23 11/18/23 Rx mcg-vilanterol 25 mcg/dose inhalation powder (Breo Ellipta) folic acid 1 mg tablet 1 mg PO DAILY@10/20/23 11/18/23 11/18/23 History pantoprazole 40 mg tablet,delayed 40 mg PO DAILY@10/20/23 11/18/23 11/18/23 History release furosemide 40 mg tablet 40 mg PO BID 30 days #60 tabs 10/29/23 11/18/23 11/18/23 Rx multivitamin with folic acid 400 1 tab PO DAILY 30 days #30 tabs 10/29/23 11/16/23 Unknown Rx mcg tablet (Thera) spironolactone 25 mg tablet 50 mg (2 x 25 mg) PO BID 30 days 10/29/23 11/18/23 11/16/23 Rx #120 tabs acetazolamide 250 mg tablet 250 mg PO DAILY 02/11/18/23 11/18/23 History Allergies Allergy/AdvReac Type Severity Reaction Status Date / Time azithromycin Allergy ALGY-Anaphy Verified 11/18/23 19:54 laxis Penicillins Allergy Unknown Verified 11/18/23 19:54 PFSH Acute PFSH: Medical History Hepatic encephalopathy Obesity Diastolic CHF Shingles Alcoholism Alcoholic cirrhosis of liver Thrombocytopenia Anemia Alcohol withdrawal COPD exacerbation Acute encephalopathy GI bleeding Acute blood loss anemia Acidosis, lactic Rhabdomyolysis Acute GI bleeding Back pain Liver cirrhosis Congestive heart failure Anemia Ascites Lumbar radiculopathy, chronic Hypothyroid Alcoholism COPD (chronic obstructive pulmonary disease) Surgical History S/P laminectomy with spinal fusion Family History Father CAD (coronary artery disease) Social History Smoking and tobacco/nicotine status: current every day tobacco/nicotine user Vitals/I&O/Wt Last Vital Signs Temp 97.6 F 11/18/23 19:52 Pulse 84 11/18/23 22:30 Resp 16 11/18/23 22:30 BP 125/76 11/18/23 22:30 Pulse Ox 95 11/18/23 22:30 O2 Del Method Room Air 11/18/23 22:30 O2 Flow Rate 3 11/18/23 19:44 Weight last 48 hrs Weight 113.398 kg Physical Exam Narrative: Morbidly obese Signs of fluid overload GCS 15 Will be redirectable however extremely drowsy Short attention span Abdominal pain Hospital course Currently on room air Urinary Catheter Management: Flores: Cath Placed During This Visit: yes Urinary Catheter Date of Insertion: 11/18/23 Urinary Catheter Time of Insertion: 20:30 Data 11/18/23 20:22 11/18/23 20:22 Micro: Microbiology 11/18/23 20:27 Blood Culture - Preliminary Blood SPECIMEN COLLECTED 11/18/23 20:22 Blood Culture - Preliminary Blood SPECIMEN COLLECTED A&P Assessment and plan (1) Liver cirrhosis: (2) Acute hepatic encephalopathy: (3) Non-healing wound of right lower extremity: (4) Altered mental status: Qualifiers: Altered mental status type: unspecified Qualified Code(s): R41.82 - Altered mental status, unspecified Plan Acute hepatic encephalopathy Patient has not been getting lactulose at [facility] Will give him rectal lactulose now once he is more awake and alert we will start high-dose frequent lactulose p.o. regimen At rifaximin And ceftriaxone 2 g daily as empiric regimen Continue Lasix and spironolactone Acute diastolic CHF exacerbation hypervolemic hyponatremia Continue diuresis Alcoholic liver cirrhosis with acute decompensation Secondary to noncompliance No active signs of fever Bilirubin 1.7 AST 155 ALT alkaline phosphatase unremarkable Ammonia level 122 Patient is full code as per the senior living records Clear liquid diet for now DVT prophylaxis added assisted notes reviewed: Patient is full code, chest x-ray shows interpretation mild intravascular congestion Attestations Medical Necessity Statement*: Anticipating more than 2 midnights for management of hepatic encephalopathy, Diagnoses Liver cirrhosis K74.60 Acute hepatic encephalopathy K76.82 Non-healing wound of right lower extremity S81.801A Altered mental status R41.82 Altered mental status type: unspecified
[2023-11-18 23:16] VITALS: BP 147/78; PULSE 89; RESP 12; O2SAT 94
[2023-11-19] VITALS (10 sets, daily range): BP systolic 126–147; BP diastolic 66–78; PULSE 81–94; RESP 8–18; TEMP 36.2–36.9; O2SAT 92–95
[2023-11-19] MEDS: enoxaparin 40 mg/0.4 mL Syringe SUBCUT (00:36)
[2023-11-19] MEDS: cefTRIAXone 2,000 MG in sodium chloride 0.9% (plus) 50 ML 100 MG IV (00:37)
[2023-11-19 00:45] LABS: Thyroid Stimulating Hormone 4.37 uIU/mL (0.27-4.20)
[2023-11-19] MEDS: lactulose oral liq 20 gm/30 mL UDC 200 GM PR (01:14)
[2023-11-19 05:22] LABS: Basophils % 0.9 %; Eosinophils # 0.1 10^3/uL (0.0-0.8); Eosinophils % 2.4 %; Hematocrit 31.9 % (37-53); Lymphocytes # 1.9 10^3/uL (0.8-4.8); Lymphocytes % 40.6 %; Mean Corpuscular HGB Conc 29.8 g/dL (30-55); Mean Corpuscular Hemoglobin 25.3 pg (27-33); Mean Corpuscular Volume 85.1 fl (82-101); Mean Platelet Volume 9.7 fL (7.4-10.4); Monocytes # 0.4 10^3/uL (0.2-0.9); Monocytes % 8.4 %; Neutrophils # 2.22 10^3/uL (1.8-7.7); Neutrophils % 47.5 %; Nucleated Red Blood Cells % 0 %; Platelet Count 147 10^3/cmm (157-399); Red Blood Count 3.75 10^6/uL (3.85-5.65); Red Cell Distribution Width 23.2 % (12.1-15.1); White Blood Count 4.66 10^3/uL (3.29-11.43)
[2023-11-19 05:46] LABS: Alanine Aminotransferase 35 U/L (0-41); Albumin Level 2.8 g/dL (3.5-5.2); Alkaline Phosphatase 106 U/L (40-130); Anion Gap 12.7 (5-19); Aspartate Amino Transferase 141 U/L (0-40); Blood Urea Nitrogen 17 mg/dL (6-20); Calcium 8.5 mg/dL (8.5-10.5); Carbon Dioxide 29 mmol/L (22-29); Chloride 97 mmol/L (98-107); Creatinine Clr Calc Pharmacy 97.6136; Globulin 5.8 g/dL (1.3-4.6); Glucose 121 mg/dL (65-115); Magnesium 1.5 mg/dL (1.7-2.3); Osmolality Calculated 283 mOsm/kg (285-295); Phosphorus 5.7 mg/dL (2.5-4.5); Potassium 3.7 mmol/L (3.5-5.1); Sodium 135 mmol/L (136-145); Total Bilirubin 1.4 mg/dL (0.15-1.2); Total Protein 8.6 g/dL (6.6-8.7)
[2023-11-19] MEDS: spironolactone 25 mg Tablet 50 MG PO ×2 (08:42→17:30)
[2023-11-19] MEDS: FUROsemide 40 mg Tablet PO (08:42)
--- NOTE | 2023-11-19 09:41 | PC.CHAP ---
Pastoral Care Encounter/Spiritual Assessment Type of Contact [] Declined rigging engineer visit [] Patient/Family/Request visit [] Outpatient visit [] Follow-up visit [] Physician referral [] Code/Alert [] Routine visit [] Staff referral [] Actively dying [x] Patient sleeping [] Family support [] [] Out of room [] Palliative care [] [] Receiving care in room [] Pre-surgical visit [] Trauma [] Long length of stay [] ICU visit [] Other: Relational/Emotional Strength [] Patient feels connected with others/family/visitors/staff [] Distress [] Loneliness/isolation [] Abandonment Spirituality of Patient [] Person of Syeda [] Attends Islam of their Syeda [] Believes in Prayer [] Reads Bible or Mu-Ism materials [] There are Spiritual issues to be addressed E Commerce Project Manager Interventions [] Prayer [] Active listening [] Non-anxious presence [] Spiritual/emotional support [] Crisis/trauma care [] Spiritual counseling [] Bereavement support [] Provided bereavement packet [] Provided Bible/devotional materials [] Provided toy/stuffed animal, coloring book to patient or family member [] Provided Communion [] Anointing/[place] [] Salvation [] Completed spiritual assessment [] Other: Impact on Illness or Injury [] Angry [] Fearful [] Anxious [] Often cries [] Exhaustion [] Unable to work [] Unable to attend tenriism [] Unable to walk/stand [] Unable to read [] Unable to drive [] Unable to eat/drink [] Unable to sleep [] Unable to be with family [] Patient intubated [] Other: Summary Time spent with patient
--- NOTE | 2023-11-19 09:58 | PC.NURSE ---
Provider notified that nursing held his Lactulose and sennoside/docusate at 0900. Patient had a bowel movement overnight and one at 0730 this morning. Provider said the goal is to have 3 BM's per day. If he does not have another one during the day he will need to take the medication.
--- NOTE | 2023-11-19 09:59 | PC.SOCIAL ---
IMM Update pg 2 of IMM updated and reviewed w/ patients mother, Kina, on the phone as patient is still very lethargic. Copy dated, initialed and placed in chart.
--- NOTE | 2023-11-19 11:38 | P.PN_ITS ---
Subjective 2 Subjective: Seen this morning. No acute events overnight. Patient appears drowsy however wakes up and does answer questions. Knows where he is knows his name and date of . Cannot tell me who the president is however. Vitals/I&O/Wt Last Vital Signs Temp 98.4 F 11/19/23 08:00 Pulse 91 11/19/23 09:48 Resp 18 11/19/23 09:48 BP 136/71 11/19/23 08:00 Pulse Ox 92 11/19/23 09:48 O2 Del Method Nasal Cannula 11/19/23 09:48 O2 Flow Rate 3 11/19/23 09:48 11/18/23 11/19/23 11/19/23 22:59 06:59 14:59 Intake Total 50 / 50 120 / 120 Output Total 950 / 950 Balance -900 / -900 120 / 120 Weight last 48 hrs Weight 81.023 kg Weight 73.936 kg Weight 113.398 kg Physical Exam 2 Narrative: Morbidly obese Signs of fluid overload Appears lethargic and drowsy however able to answer questions. Is redirectable Short attention span Abdominal pain Clear to auscultation bilaterally no wheezes no rhonchi. On 3 L nasal cannula at this time. Urinary Catheter Management: Flores: Cath Placed During This Visit: yes Reason for Continuing Indwelling Catheter: Assist Healing of Perineal & Sacral Wounds- Incontinent Patients Urinary Catheter Date of Insertion: 11/18/23 Urinary Catheter Time of Insertion: 20:30 Data 11/19/23 04:45 11/19/23 04:45 Micro: Microbiology 11/18/23 20:27 Blood Culture - Preliminary Blood SPECIMEN COLLECTED 11/18/23 20:22 Blood Culture - Preliminary Blood SPECIMEN COLLECTED A&P Assessment and plan (1) Liver cirrhosis: (2) Acute hepatic encephalopathy: (3) Non-healing wound of right lower extremity: (4) Altered mental status: Qualifiers: Altered mental status type: unspecified Qualified Code(s): R41.82 - Altered mental status, unspecified Plan Acute hepatic encephalopathy Patient has not been getting lactulose at [facility] Will give him rectal lactulose now once he is more awake and alert we will start high-dose frequent lactulose p.o. regimen Continue rifaximin And ceftriaxone 2 g daily as empiric regimen however suspicion of SBP is low. Abdomen soft nontender. I will check with ultrasound for ascites. Continue Lasix and spironolactone Acute diastolic CHF exacerbation hypervolemic hyponatremia Continue diuresis Alcoholic liver cirrhosis with acute decompensation Secondary to noncompliance No active signs of fever Bilirubin 1.7 AST 155 ALT alkaline phosphatase unremarkable Ammonia level 122 Patient is full code as per the [facility] Clear liquid diet for now DVT prophylaxis added halfway notes reviewed: Patient is full code, chest x-ray shows interpretation mild intravascular congestion Attestations 2 Medical Necessity Statement*: Anticipating more than 2 midnights for management of hepatic encephalopathy, Diagnoses Liver cirrhosis K74.60 Acute hepatic encephalopathy K76.82 Non-healing wound of right lower extremity S81.801A Altered mental status R41.82 Altered mental status type: unspecified
--- NOTE | 2023-11-19 11:42 | US_ITS ---
WS: [id number] INDICATION: Paracentesis. TECHNIQUE: Ultrasound abdomen limited. FINDINGS: Four-quadrant ultrasound. No ascites visualized on the four-quadrant survey. IMPRESSION: No ascites visualized
[2023-11-19] MEDS: levothyroxine 50 mcg Tablet PO (12:11)
[2023-11-19] MEDS: folic acid 1 mg Tablet PO (12:11)
[2023-11-19] MEDS: lactulose oral liq 20 gm/30 mL UDC 30 GM PO ×2 (14:26→20:42)
[2023-11-20] VITALS (10 sets, daily range): BP systolic 122–141; BP diastolic 65–77; PULSE 66–85; RESP 12–18; TEMP 36.4–36.8; O2SAT 92–100
[2023-11-20] MEDS: enoxaparin 40 mg/0.4 mL Syringe SUBCUT (00:06)
[2023-11-20] MEDS: cefTRIAXone 2,000 MG in sodium chloride 0.9% (plus) 50 ML 100 MG IV (00:06)
[2023-11-20 03:56] LABS: Basophils # 0.1 10^3/uL (0.0-0.1); Eosinophils # 0.1 10^3/uL (0.0-0.8); Eosinophils % 2.5 %; Hematocrit 32.2 % (37-53); Lymphocytes # 2.2 10^3/uL (0.8-4.8); Lymphocytes % 41.6 %; Mean Corpuscular HGB Conc 30.1 g/dL (30-55); Mean Corpuscular Hemoglobin 25.3 pg (27-33); Mean Corpuscular Volume 83.9 fl (82-101); Mean Platelet Volume 9.8 fL (7.4-10.4); Monocytes # 0.6 10^3/uL (0.2-0.9); Neutrophils # 2.26 10^3/uL (1.8-7.7); Neutrophils % 43.7 %; Nucleated Red Blood Cells % 0 %; Platelet Count 139 10^3/cmm (157-399); Red Blood Count 3.84 10^6/uL (3.85-5.65); White Blood Count 5.17 10^3/uL (3.29-11.43)
[2023-11-20 04:45] LABS: Anion Gap 12.8 (5-19); Blood Urea Nitrogen 19 mg/dL (6-20); Calcium 8.9 mg/dL (8.5-10.5); Carbon Dioxide 29 mmol/L (22-29); Chloride 98 mmol/L (98-107); Creatinine Clr Calc Pharmacy 87.8523; Glucose 133 mg/dL (65-115); Magnesium 1.7 mg/dL (1.7-2.3); Osmolality Calculated 286 mOsm/kg (285-295); Potassium 3.8 mmol/L (3.5-5.1); Sodium 136 mmol/L (136-145)
[2023-11-20] MEDS: FUROsemide 40 mg Tablet PO ×2 (08:43→16:03)
[2023-11-20] MEDS: sennosides-docusate Tablet 1 TAB PO (08:43)
[2023-11-20] MEDS: lactulose oral liq 20 gm/30 mL UDC 30 GM PO ×3 (08:43→20:58)
[2023-11-20] MEDS: spironolactone 25 mg Tablet 50 MG PO ×2 (08:43→17:43)
--- NOTE | 2023-11-20 10:37 | PC.NURSE ---
Dr Farris gave order for Ibuprofen 400mg for pain. Patient was complaining of pain.
[2023-11-20] MEDS: ibuprofen 200 mg Tablet 400 MG PO (10:55)
[2023-11-20] MEDS: levothyroxine 50 mcg Tablet PO (12:53)
[2023-11-20] MEDS: folic acid 1 mg Tablet PO (12:53)
--- NOTE | 2023-11-20 13:01 | PM.PN ---
Subjective Subjective: Seen this morning. Patient has been having several bowel movements. Mental status has improved quite a bit. Patient's mother called and wondering if patient can go home instead of going back to [facility]. PT eval pending. Vitals/I&O/Wt Last Vital Signs Temp 98.2 F 11/20/23 12:00 Pulse 78 11/20/23 12:00 Resp 12 11/20/23 12:00 BP 122/68 11/20/23 12:00 Pulse Ox 94 11/20/23 12:00 O2 Del Method Nasal Cannula 11/20/23 12:00 O2 Flow Rate 3 11/20/23 10:00 11/19/23 11/20/23 11/20/23 22:59 06:59 14:59 Intake Total 120 / 360 1010 / 1370 342 / 342 Output Total 1200 / 1200 450 / 1650 125 / 125 Balance -1080 / -840 560 / -280 217 / 217 Weight last 48 hrs Weight 81.023 kg Weight 73.936 kg Weight 113.398 kg Physical Exam Narrative: Morbidly obese He is alert oriented x 3. Appears well today. Abdomen soft nontender Short attention span Clear to auscultation bilaterally no wheezes no rhonchi. On 3 L nasal cannula at this time. No edema bilateral lower extremities Urinary Catheter Management: Flores: Cath Placed During This Visit: yes Reason for Continuing Indwelling Catheter: Accurate Measurement of Urinary Output in Critically Ill Patients Urinary Catheter Date of Insertion: 11/18/23 Urinary Catheter Time of Insertion: 20:30 Data 11/20/23 03:21 11/20/23 03:21 Micro: Microbiology 11/18/23 20:27 Blood Culture - Preliminary Blood NEGATIVE TO DATE 11/18/23 20:22 Blood Culture - Preliminary Blood NEGATIVE TO DATE A&P Assessment and plan (1) Liver cirrhosis: (2) Acute hepatic encephalopathy: (3) Non-healing wound of right lower extremity: (4) Altered mental status: Qualifiers: Altered mental status type: unspecified Qualified Code(s): R41.82 - Altered mental status, unspecified Plan Acute hepatic encephalopathy?improving Patient has not been getting lactulose at [facility] Continue oral lactulose 20 3 times daily Continue rifaximin And ceftriaxone 2 g daily as empiric regimen however suspicion of SBP is low. Abdomen soft nontender. Ultrasound abdomen negative for ascites. Continue Lasix and spironolactone Acute diastolic CHF exacerbation hypervolemic hyponatremia Continue diuresis lasix 40 IV BID Alcoholic liver cirrhosis with acute decompensation Secondary to noncompliance No active signs of fever Bilirubin 1.7 at admission AST 155 ALT alkaline phosphatase unremarkable CHeck CT abdomen pelvis today Recheck LFTs Ammonia level 122 Patient is full code as per the skilled nursing records Clear liquid diet for now DVT prophylaxis added retirement notes reviewed: Patient is full code, chest x-ray shows interpretation mild intravascular congestion Attestations Medical Necessity Statement*: Anticipating more than 2 midnights for management of hepatic encephalopathy, Diagnoses Liver cirrhosis K74.60 Acute hepatic encephalopathy K76.82 Non-healing wound of right lower extremity S81.801A Altered mental status R41.82 Altered mental status type: unspecified
--- NOTE | 2023-11-20 13:07 | CTR_ITS ---
PROCEDURE INFORMATION: Exam: CT Abdomen And Pelvis Without Contrast Exam date and time: 11/20/2023 1:51 PM Age: 58 years old Clinical indication: Abnormal findings; Abnormal lab test; Other: Bilirubin; Additional info: Elevated bilirubin TECHNIQUE: Imaging protocol: Computed tomography of the abdomen and pelvis without contrast. Radiation optimization: All CT scans at this facility use at least one of these dose optimization techniques: automated exposure control; mA and/or kV adjustment per patient size (includes targeted exams where dose is matched to clinical indication); or iterative reconstruction. COMPARISON: CT abdomen pelvis con [id number] 09/11/2023 7:49 AM RADIATION DOSE METRICS: Total DLP (mGy-cm): 1085.33 FINDINGS: Lungs: Atelectatic changes in both lung bases. Coronary arteries: Moderate coronary calcifications. Diaphragm: Small hiatal hernia. Liver: Normal. No mass. Gallbladder and bile ducts: Cholelithiasis with no surrounding inflammatory changes to suggest acute cholecystitis. Pancreas: Normal. No ductal dilation. Spleen: Normal. No splenomegaly. Adrenal glands: Normal. No mass. Kidneys and ureters: Normal. No hydronephrosis. Stomach and bowel: Peripheral around pockets of air in the ascending colon that might be fecal material related or pneumatosis intestinalis in the right clinical setting. Appendix: No evidence of appendicitis. Intraperitoneal space: Unremarkable. No free air. No significant fluid collection. Vasculature: There are vascular calcifications. Lymph nodes: Unremarkable. No enlarged lymph nodes. Urinary bladder: Flores catheter in the bladder which is collapsed. Reproductive: Unremarkable as visualized. Bones/joints: Mild curvature of the thoracolumbar spine convex to the right. Mild degenerative disease of bilateral hip joints. Posterior L5-S1 and L4-L5 disc bulges, most pronounced at L4-L5 causing moderate to severe thecal sac compression. Soft tissues: Subcutaneous fat stranding in the right abdominal wall. Mild degenerative disease of bilateral sacroiliac joints. CT/CT abdomen pelvis con [id number] IMPRESSION: 1. Cholelithiasis with no changes of acute cholecystitis or biliary dilatation. 2. Peripheral pockets of air in the ascending and transverse colon that might be related to fecal material versus pneumatosis intestinalis in the right clinical setting.
[2023-11-20 13:51] LABS: Alanine Aminotransferase 32 U/L (0-41); Albumin Level 2.7 g/dL (3.5-5.2); Alkaline Phosphatase 97 U/L (40-130); Aspartate Amino Transferase 105 U/L (0-40); Globulin 6.2 g/dL (1.3-4.6); Total Bilirubin 1.3 mg/dL (0.15-1.2); Total Protein 8.9 g/dL (6.6-8.7)
[2023-11-21] VITALS (11 sets, daily range): BP systolic 121–134; BP diastolic 61–78; PULSE 60–85; RESP 13–21; TEMP 36.4–37.1; O2SAT 92–99
[2023-11-21] MEDS: cefTRIAXone 2,000 MG in sodium chloride 0.9% (plus) 50 ML 100 MG IV ×2 (00:23→22:31)
[2023-11-21] MEDS: enoxaparin 40 mg/0.4 mL Syringe SUBCUT ×2 (00:23→22:31)
[2023-11-21 04:38] LABS: Basophils % 0.9 %; Eosinophils # 0.3 10^3/uL (0.0-0.8); Eosinophils % 6.1 %; Hematocrit 30.3 % (37-53); Lymphocytes # 1.1 10^3/uL (0.8-4.8); Lymphocytes % 24.5 %; Mean Corpuscular Hemoglobin 25.2 pg (27-33); Mean Corpuscular Volume 83.9 fl (82-101); Monocytes # 0.5 10^3/uL (0.2-0.9); Monocytes % 10.8 %; Neutrophils # 2.55 10^3/uL (1.8-7.7); Neutrophils % 57.5 %; Nucleated Red Blood Cells % 0 %; Platelet Count 118 10^3/cmm (157-399); Red Blood Count 3.61 10^6/uL (3.85-5.65); Red Cell Distribution Width 22.7 % (12.1-15.1); White Blood Count 4.44 10^3/uL (3.29-11.43)
[2023-11-21 05:04] LABS: Alanine Aminotransferase 30 U/L (0-41); Albumin Level 2.7 g/dL (3.5-5.2); Alkaline Phosphatase 92 U/L (40-130); Anion Gap 12.3 (5-19); Aspartate Amino Transferase 82 U/L (0-40); Blood Urea Nitrogen 21 mg/dL (6-20); Calcium 9.1 mg/dL (8.5-10.5); Carbon Dioxide 30 mmol/L (22-29); Chloride 95 mmol/L (98-107); Creatinine Clr Calc Pharmacy 87.8523; Globulin 5.4 g/dL (1.3-4.6); Glucose 104 mg/dL (65-115); Magnesium 1.5 mg/dL (1.7-2.3); Osmolality Calculated 281 mOsm/kg (285-295); Potassium 3.3 mmol/L (3.5-5.1); Sodium 134 mmol/L (136-145); Total Bilirubin 1.4 mg/dL (0.15-1.2); Total Protein 8.1 g/dL (6.6-8.7)
[2023-11-21] MEDS: sennosides-docusate Tablet 1 TAB PO (08:45)
[2023-11-21] MEDS: spironolactone 25 mg Tablet 50 MG PO ×2 (08:45→17:06)
[2023-11-21] MEDS: FUROsemide 40 mg Tablet PO ×2 (08:45→17:06)
[2023-11-21] MEDS: lactulose oral liq 20 gm/30 mL UDC 30 GM PO ×3 (08:46→21:35)
--- NOTE | 2023-11-21 09:51 | PC.NURSE ---
Provider is notified that patient would like something for his back pain. Order is given for ibuprofen 400mg once. Order entered.
--- NOTE | 2023-11-21 10:37 | CTR_ITS ---
PROCEDURE INFORMATION: Exam: CT Head Without Contrast Exam date and time: 11/21/2023 1:44 PM Age: 58 years old Clinical indication: Visual disturbance; Additional info: Double vision TECHNIQUE: Imaging protocol: Computed tomography of the head without contrast. Radiation optimization: All CT scans at this facility use at least one of these dose optimization techniques: automated exposure control; mA and/or kV adjustment per patient size (includes targeted exams where dose is matched to clinical indication); or iterative reconstruction. COMPARISON: CT head wo con* [id number] 11/18/2023 8:49 PM RADIATION DOSE METRICS: Total DLP (mGy-cm): 1122.5 FINDINGS: Brain: Normal. No hemorrhage. Unremarkable white matter. No mass effect. Cerebral ventricles: No ventriculomegaly. Paranasal sinuses: There is mucosal disease of the right ethmoid air cells. Mastoid air cells: Visualized mastoid air cells are well aerated. Bones/joints: Unremarkable. No acute fracture. Soft tissues: Unremarkable. CT/CT head wo con* [id number] IMPRESSION: No large territorial infarct or intracranial bleed.
--- NOTE | 2023-11-21 10:38 | PC.NURSE ---
Provider ordered a Head CT without contrast due to double vision.
[2023-11-21] MEDS: ibuprofen 200 mg Tablet 400 MG PO (12:28)
[2023-11-21] MEDS: folic acid 1 mg Tablet PO (12:29)
[2023-11-21] MEDS: levothyroxine 50 mcg Tablet PO (12:29)
--- NOTE | 2023-11-21 13:26 | PM.PN ---
Subjective Subjective: Seen this morning. Patient feels a lot better compared to before. He states he is trying to rest and sleep at this time. Saturating 99% on nasal cannula. Offers no complaints. Able to follow commands. Moves all 4 extremities. Vitals/I&O/Wt Last Vital Signs Temp 98.3 F 11/21/23 12:00 Pulse 76 11/21/23 12:00 Resp 18 11/21/23 12:00 BP 130/73 11/21/23 12:00 Pulse Ox 99 11/21/23 12:00 O2 Del Method Nasal Cannula 11/21/23 12:00 O2 Flow Rate 4 11/21/23 08:14 11/20/23 11/21/23 11/21/23 22:59 06:59 14:59 Intake Total 120 / 462 50 / 512 360 / 360 Output Total 275 / 400 450 / 850 Balance -155 / 62 -400 / -338 360 / 360 Weight last 48 hrs Weight 74.979 kg Physical Exam Narrative: Morbidly obese He is alert oriented x 3. Appears well today. Abdomen soft nontender Short attention span Clear to auscultation bilaterally no wheezes no rhonchi. On 3 L nasal cannula at this time. No edema bilateral lower extremities Abdomen soft nontender Normal S1-S2 Neuro: Cranial nerves II to XII intact, moves all 4 extremities, nonfocal Symmetrical strength upper extremities Bilateral lower extremities 3 out of 5 Urinary Catheter Management: Flores: Cath Placed During This Visit: yes Reason for Continuing Indwelling Catheter: Other Urinary Catheter Date of Insertion: 11/18/23 Urinary Catheter Time of Insertion: 20:30 Data 11/21/23 03:53 11/21/23 03:53 A&P Assessment and plan (1) Liver cirrhosis: (2) Acute hepatic encephalopathy: (3) Non-healing wound of right lower extremity: (4) Altered mental status: Qualifiers: Altered mental status type: unspecified Qualified Code(s): R41.82 - Altered mental status, unspecified Plan Acute hepatic encephalopathy?resolved Patient has not been getting lactulose at [facility] Continue oral lactulose 20 3 times daily Continue rifaximin And ceftriaxone 2 g daily as empiric regimen however suspicion of SBP is low. Abdomen soft nontender. Ultrasound abdomen negative for ascites. Continue Lasix and spironolactone Recheck head CT. Neuro exam non focal however earlier pt complained of double vision which he says has been present since admission Acute diastolic CHF exacerbation hypervolemic hyponatremia Continue diuresis lasix 40 po BID Alcoholic liver cirrhosis with acute decompensation Secondary to noncompliance No active signs of fever Bilirubin 1.7 at admission AST 155 ALT alkaline phosphatase unremarkable CHeck CT abdomen pelvis toda 1. Cholelithiasis with no changes of acute cholecystitis or biliary dilatation. 2. Peripheral pockets of air in the ascending and transverse colon that might be related to fecal material versus pneumatosis intestinalis in the right clinical setting. Recheck LFTs - improving Ammonia level 122 Patient is full code as per the [facility] records gi soft diet DVT prophylaxis added correction notes reviewed: Patient is full code, chest x-ray shows interpretation mild intravascular congestion Attestations Medical Necessity Statement*: Anticipating more than 2 midnights for management of hepatic encephalopathy, Diagnoses Liver cirrhosis K74.60 Acute hepatic encephalopathy K76.82 Non-healing wound of right lower extremity S81.801A Altered mental status R41.82 Altered mental status type: unspecified
[2023-11-22] VITALS (56 sets, daily range): BP systolic 119–129; BP diastolic 62–69; PULSE 55–146; RESP 0–26; TEMP 36.8–37; O2SAT 95
[2023-11-22 04:59] LABS: Basophils % 0.9 %; Eosinophils # 0.3 10^3/uL (0.0-0.8); Eosinophils % 6.2 %; Hematocrit 29.2 % (37-53); Lymphocytes # 1.9 10^3/uL (0.8-4.8); Lymphocytes % 41.3 %; Mean Corpuscular HGB Conc 30.1 g/dL (30-55); Mean Corpuscular Hemoglobin 25.6 pg (27-33); Mean Corpuscular Volume 84.9 fl (82-101); Mean Platelet Volume 10.3 fL (7.4-10.4); Monocytes # 0.5 10^3/uL (0.2-0.9); Monocytes % 11.7 %; Neutrophils # 1.79 10^3/uL (1.8-7.7); Neutrophils % 39.5 %; Nucleated Red Blood Cells % 0 %; Platelet Count 108 10^3/cmm (157-399); Red Blood Count 3.44 10^6/uL (3.85-5.65); Red Cell Distribution Width 22.5 % (12.1-15.1); White Blood Count 4.53 10^3/uL (3.29-11.43)
[2023-11-22 05:23] LABS: Anion Gap 9.9 (5-19); Blood Urea Nitrogen 20 mg/dL (6-20); Calcium 8.9 mg/dL (8.5-10.5); Carbon Dioxide 32 mmol/L (22-29); Chloride 93 mmol/L (98-107); Glucose 85 mg/dL (65-115); Osmolality Calculated 276 mOsm/kg (285-295); Sodium 132 mmol/L (136-145)
[2023-11-22 05:30] LABS: Potassium 2.9 mmol/L (3.5-5.1)
--- NOTE | 2023-11-22 06:49 | PC.NURSE ---
Spoke with regarding potassium of 2.9 this morning. Order for IV potassium replacement.
[2023-11-22] MEDS: lidocaine 1% 5 ML in potassium chloride premix 100 ML 52.5 ML IV ×2 (07:58→10:09)
[2023-11-22] MEDS: lactulose oral liq 20 gm/30 mL UDC 30 GM PO (08:10)
[2023-11-22] MEDS: FUROsemide 40 mg Tablet PO (08:10)
[2023-11-22] MEDS: spironolactone 25 mg Tablet 50 MG PO (08:10)
--- NOTE | 2023-11-22 09:45 | PC.CHAP ---
Pastoral Care Encounter/Spiritual Assessment Type of Contact [] Declined application packaging consultant visit [] Patient/Family/Request visit [] Outpatient visit [] Follow-up visit [] Physician referral [] Code/Alert [x] Routine visit [] Staff referral [] Actively dying [] Patient sleeping [] Family support [] [] Out of room [] Palliative care [] [] Receiving care in room [] Pre-surgical visit [] Trauma [] Long length of stay [] ICU visit [] Other: Relational/Emotional Strength [] Patient feels connected with others/family/visitors/staff [] Distress [] Loneliness/isolation [] Abandonment Spirituality of Patient [x] Person of Syeda [] Attends Protestant of their Syeda [x] Believes in Prayer [] Reads Bible or Mormon materials [] There are Spiritual issues to be addressed Sailor Interventions [x] Prayer [x] Active listening [] Non-anxious presence [] Spiritual/emotional support [] Crisis/trauma care [] Spiritual counseling [] Bereavement support [] Provided bereavement packet [x] Provided Bible/devotional materials [] Provided toy/stuffed animal, coloring book to patient or family member [] Provided Communion [] Anointing/[place] [] Salvation [] Completed spiritual assessment [] Other: Impact on Illness or Injury [] Angry [] Fearful [] Anxious [] Often cries [] Exhaustion [] Unable to work [] Unable to attend yazidi [] Unable to walk/stand [] Unable to read [] Unable to drive [] Unable to eat/drink [] Unable to sleep [] Unable to be with family [] Patient intubated [] Other: Summary Time spent with patient 5min
[2023-11-22] MEDS: rifaximin 200 mg Tablet 550 MG PO (09:58)
[2023-11-22] MEDS: folic acid 1 mg Tablet PO (12:52)
[2023-11-22] MEDS: levothyroxine 50 mcg Tablet PO (12:52)
--- NOTE | 2023-11-22 13:28 | P.DS_ITS ---
Discharge Providers Date of Admission: 11/18/23 23:18 Date of Discharge: November 22, 2023 Attending Provider at Admission: Lex Victoria MD Attending Provider at Discharge: Dennise Rosado MD Primary Care Provider: Elizabeth Gagnon MD Diagnoses at Discharge Discharge Diagnosis (1) Liver cirrhosis: Status: Acute (2) Acute hepatic encephalopathy: Status: Acute (3) Non-healing wound of right lower extremity: Status: Acute (4) Altered mental status: Status: Acute Qualifiers: Altered mental status type: unspecified Qualified Code(s): R41.82 - Altered mental status, unspecified Reason for Visit Reason for Visit: Lethargic Hospital Course Hospital Course Eliezer Reynolds is a 58 year old male resident of [facility] worsening confusion. Ammonia level extremely high, he has history of alcoholic induced liver cirrhosis,No recent fever reported. No recent abdominal pain or diarrhea. Patient was admitted to the hospital in view of hepatic encephalopathy. He was started on rectal lactulose which was eventually converted to p.o. lactulose. Additionally he received rifaximin 550 mg twice daily. He also received ceftriaxone 2 g IV daily due to concern for potential SBP, however during the course of his hospitalization he remained afebrile and hemodynamically stable. Antibiotics have been discontinued at discharge. His mental status is much improved at the time of discharge. He is back at baseline mentation. He is being discharged today in stable condition with recommendations to continue oral lactulose 20 mg 3 times a day, titrate to 2-3 bowel movements per day. Continue rifaximin. CT of the abdomen incidentally noted peripheral pockets of air in the ascending and transverse colon that may be related to fecal material versus pneumatosis intestinalis. Favor fecal matter more likely, lactate was normal, abdominal exam benign, no other overt signs or symptoms of infective process. Physical Exam Narrative: General: No acute distress, AO x3 HEENT: PERRLA, pupils bilaterally equal and reactive, pallors not present Chest: Normal vesicular breath sounds, no added sounds, equal good air entry bilaterally CVS: S1-S2 regular, no murmurs, no tachycardia, no gallops, no rubs Abdomen: Soft, nontender, no organomegaly, bowel sounds present Neuro: No focal deficits, no facial deformity, AO x3, power 5/5 in all limbs Urinary Catheter Management: Flores: Cath Placed During This Visit: yes Reason for Continuing Indwelling Catheter: Acute Urinary Retention or Obstruction Urinary Catheter Date of Insertion: 11/18/23 Urinary Catheter Time of Insertion: 20:30 Discharge Data Studies Completed and Pending Completed Studies During Hospitalization Category Date Time Status CT abdomen pelvis wo con [id number] Routine Cat Scan 11/20/23 13:[address] head wo con* [id number] Routine Cat Scan 11/21/23 10:[address] head wo con* [id number] Stat Cat Scan 11/18/23 19:54 Completed XR chest 1V portable [id number] Stat Exams 11/18/23 19:54 Completed US abdomen lmt fluid [id number] Routine Ultrasound 11/19/23 11:42 Completed Pending at discharge Category Date Time Status Blood Culture Stat Lab 11/18/23 20:27 Results Radiology Impressions Chest X-Ray 11/18/23 19:54 IMPRESSION: 1. Cardiomegaly. 2. Bibasilar atelectasis versus infiltrate. 3. Pulmonary vascular congestion. Abdomen/Pelvis CT 11/20/23 13:07 IMPRESSION: 1. Cholelithiasis with no changes of acute cholecystitis or biliary dilatation. 2. Peripheral pockets of air in the ascending and transverse colon that might be related to fecal material versus pneumatosis intestinalis in the right clinical setting. Head CT 11/21/23 10:37 IMPRESSION: No large territorial infarct or intracranial bleed. Laboratory Results WBC 4.53 10^3/uL (3.29-11.43) 11/22/23 03:15 RBC 3.44 10^6/uL (3.85-5.65) L 11/22/23 03:15 Hgb 8.80 g/dL (11.27-16.99) L 11/22/23 03:15 Hct 29.2 % (37-53) L 11/22/23 03:15 MCV 84.9 fl (82-101) 11/22/23 03:15 MCH 25.6 pg (27-33) L 11/22/23 03:15 MCHC 30.1 g/dL (30-55) 11/22/23 03:15 RDW 22.5 % (12.1-15.1) H 11/22/23 03:15 Plt Count 108 10^3/cmm (157-399) L 11/22/23 03:15 MPV 10.3 fL (7.4-10.4) 11/22/23 03:15 Neut % (Auto) 39.5 % 11/22/23 03:15 Lymph % (Auto) 41.3 % 11/22/23 03:15 [place] % (Auto) 11.7 % 11/22/23 03:15 Eos % (Auto) 6.2 % 11/22/23 03:15 Baso % (Auto) 0.9 % 11/22/23 03:15 Neut # (Auto) 1.79 10^3/uL (1.8-7.7) L 11/22/23 03:15 Lymph # (Auto) 1.9 10^3/uL (0.8-4.8) 11/22/23 03:15 [place] # (Auto) 0.5 10^3/uL (0.2-0.9) 11/22/23 03:15 Eos # (Auto) 0.3 10^3/uL (0.0-0.8) 11/22/23 03:15 Baso # (Auto) 0.0 10^3/uL (0.0-0.1) 11/22/23 03:15 Nucleated RBC % (auto) 0 % 11/22/23 03:15 Nucleated RBCs # 0.0 /100WBC 11/22/23 03:15 PT 17.70 SECONDS (12.1-14.9) H 11/18/23 20:22 INR 1.40 (0.8-1.2) H 11/18/23 20:22 APTT 49.3 SECONDS (23.9-36.7) H 11/18/23 20:22 Specimen Type Arterial 11/18/23 20:10 Sample Site Brachial, left 11/18/23 20:10 ABG pH 7.38 (7.35-7.45) 11/18/23 20:10 ABG pCO2 48.8 mmHg (35-45) H 11/18/23 20:10 ABG pO2 68.3 mmHg (80.0-100.0) L 11/18/23 20:10 ABG PO2/FiO2 Ratio 0 11/18/23 20:10 ABG HCO3 28.8 mmol/L (22-26) H 11/18/23 20:10 ABG O2 Saturation 92.8 11/18/23 20:10 ABG Base Excess 3.0 mmol/L (-2.0-2.0) H 11/18/23 20:10 Ward Test Pos 11/18/23 20:10 A-a O2 Gradient 20.1 mmHg (5-10) H 11/18/23 20:10 Hematocrit 31.2 % (42-52) L 11/18/23 20:10 Hgb O2 Saturation 90.4 % (95-100) L 11/18/23 20:10 Carboxyhemoglobin 1.9 %THgb (0.4-20.1) 11/18/23 20:10 Methemoglobin 0.7 % (0.4-1.5) 11/18/23 20:10 Total Hemoglobin 10.2 g/dL (14-18) L 11/18/23 20:10 Sodium 137.0 mmol/L (131-143) 11/18/23 20:10 Potassium 3.7 mmol/L (3.5-5.0) 11/18/23 20:10 Glucose 133.0 mg/dL (70-115) H 11/18/23 20:10 Ionized Calcium 1.2 mmol/L (1.1-1.4) 11/18/23 20:10 O2 Delivery Device Nc 11/18/23 20:10 O2 Liters/Min 4.0 % 11/18/23 20:10 FiO2 40.0 % 11/18/23 20:10 Social Insurance Analyst ID [email or web address] 11/18/23 20:10 Sodium 132 mmol/L (136-145) L 11/22/23 03:15 Potassium 2.9 mmol/L (3.5-5.1) L 11/22/23 03:15 Chloride 93 mmol/L (98-107) L 11/22/23 03:15 Carbon Dioxide 32 mmol/L (22-29) H 11/22/23 03:15 Anion Gap 9.9 (5-19) 11/22/23 03:15 BUN 20 mg/dL (6-20) 11/22/23 03:15 Creatinine 0.9 mg/dL (0.7-1.2) 11/22/23 03:15 GFR Calculation 87.0 mL/min (90-130) L 11/22/23 03:15 Glucose 85 mg/dL (65-115) 11/22/23 03:15 Calculated Osmolality 276 mOsm/kg (285-295) L 11/22/23 03:15 Lactic Acid 2.0 mmol/L (0.5-2.2) 11/18/23 20:22 Calcium 8.9 mg/dL (8.5-10.5) 11/22/23 03:15 Phosphorus 5.7 mg/dL (2.5-4.5) H 11/19/23 04:45 Magnesium 1.5 mg/dL (1.7-2.3) L 11/21/23 03:53 Total Bilirubin 1.4 mg/dL (0.15-1.2) H 11/21/23 03:53 Direct Bilirubin 0.50 mg/dL (0.00-0.30) H 11/20/23 03:21 AST 82 U/L (0-40) H 11/21/23 03:53 ALT 30 U/L (0-41) 11/21/23 03:53 Alkaline Phosphatase 92 U/L (40-130) 11/21/23 03:53 Ammonia 122 umol/L (16-60) H 11/18/23 20:22 NT-Pro-B Natriuret Pep < 36 pg/mL (0-125) 11/18/23 20:22 Total Protein 8.1 g/dL (6.6-8.7) 11/21/23 03:53 Albumin 2.7 g/dL (3.5-5.2) L 11/21/23 03:53 Globulin 5.4 g/dL (1.3-4.6) H 11/21/23 03:53 Procalcitonin 0.17 ng/mL (0-0.5) 11/18/23 20:22 TSH 4.37 uIU/mL (0.27-4.20) H 11/18/23 20:22 Urine Color Yellow (Yellow) 11/18/23 20:34 Urine Appearance Clear (CLEAR) 11/18/23 20:34 Urine pH 6 (5-7) 11/18/23 20:34 Ur Specific [place] 1.020 (1.005-1.030) 11/18/23 20:34 Urine Protein Neg (Negative) 11/18/23 20:34 Urine Glucose (UA) Norm (Normal) 11/18/23 20:34 Urine Ketones Negative (Negative) 11/18/23 20:34 Urine Blood Neg (Negative) 11/18/23 20:34 Urine Nitrate Negative (Negative) 11/18/23 20:34 Urine Bilirubin Neg (Negative) 11/18/23 20:34 Urine Urobilinogen 1 mg/dL (Negative) H 11/18/23 20:34 Ur Leukocyte Esterase Negative (Negative) 11/18/23 20:34 Urine Opiates Screen Negative ng/mL (Negative) 11/18/23 20:34 Ur Barbiturates Screen Negative ng/mL (Negative) 11/18/23 20:34 Ur Phencyclidine Scrn Negative ng/mL (Negative) 11/18/23 20:34 Ur Amphetamines Screen Negative ng/mL (Negative) 11/18/23 20:34 U Benzodiazepines Scrn Positive ng/mL (Negative) H 11/18/23 20:34 Urine Cocaine Screen Negative ng/mL (Negative) 11/18/23 20:34 U Marijuana (THC) Screen Negative ng/mL (Negative) 11/18/23 20:34 Ethyl Alcohol < 10 mg/dL (0-10) 11/18/23 20:22 Influenza Type A Ag negative (Negative) 11/18/23 20:18 Influenza Type B Ag negative (Negative) 11/18/23 20:18 SARS-CoV-2 Ag (Rapid) negative (Negative) 11/18/23 20:18 Ammonia level 11/17: 122 Vitals Last Vital Signs Temp 98.6 F 11/22/23 10:33 Pulse 71 11/22/23 10:33 Resp 16 11/22/23 10:33 BP 124/69 11/22/23 10:33 Pulse Ox 95 11/22/23 10:33 O2 Del Method Nasal Cannula 11/22/23 07:51 O2 Flow Rate 3 11/22/23 07:51 Discharge Plan Discharge Patient Disposition: Xfer SNF Condition: Stable Prescriptions: New lactulose 20 gram/30 mL Solution 20 g PO TID 30 Days Qty: 2700 0RF Xifaxan 200 mg Tablet 550 mg PO BID 30 Days Qty: 165 0RF Continued acetazolamide 250 mg tablet 250 mg PO DAILY levothyroxine [Euthyrox] 50 mcg tablet 50 mcg PO DAILY@13 potassium chloride 10 mEq tablet extended release 10 meq PO DAILY@13 fluticasone furoate-vilanterol [Breo Ellipta] 100-25 mcg/dose blister with device 1 inh inhalation DAILY Qty: 60 0RF tramadol 50 mg PO TID PRN (Reason: Pain) lidocaine 5 % adhesive patch,medicated See Rx Instructions .ROUTE .COMPLEX Rx Instructions: apply one patch transdermally as directed ON FOR 12H OFF FOR 12 HR as needed trazodone 50 mg Tablet 100 mg PO BEDTIME pantoprazole 40 mg tablet,delayed release (DR/EC) 40 mg PO DAILY@13 folic acid 1 mg tablet 1 mg PO DAILY@13 furosemide 40 mg Tablet 40 mg PO BID 30 Days Qty: 60 0RF spironolactone 25 mg Tablet 50 mg PO BID 30 Days Qty: 120 0RF multivitamin with folic acid [Thera] 400 mcg Tablet 1 tab PO DAILY 30 Days Qty: 30 0RF Discharge Orders: Discharge Order (Routine); Ordered 11/22/23 Ordered By: Dennise Rosado Referrals: [facility] [Outside] Elizabeth Gagnon MD [Primary Care Provider] - Patient Instructions: Cirrhosis of the Liver (DC), Hepatic Encephalopathy (DC), Altered Mental Status (ED), Opioid Safety Discharge Attestations Time Spent in Discharge Care*: greater than 30 min Status at Discharge: Behavioral status at discharge: cooperative , Quality Metrics Clinical Quality Measures [ No reported AMI, CVA or VTE this stay] Coding Level [facility] Liver cirrhosis K74.60 Acute hepatic encephalopathy K76.82 Non-healing wound of right lower extremity S81.801A Altered mental status R41.82 Altered mental status type: unspecified
--- NOTE | 2023-11-22 14:28 | PC.NURSE ---
report phoned to jarrett at [facility].discharged via w/c medicaid transportation at this time.
== END 2023-11-22 14:31 | disposition skilled nursing facility (03) | DRG 441 ==
LOC: ER 23:01 → CSU 23:21
PROVIDERS: Internal Medicine; Admitting Provider Internal Medicine; Emergency Provider Internal Medicine; PCP Family Medicine; Visit Provider Student in an Organized Health Care Education/Training Program
DX: K76.82 Hepatic encephalopathy (principal); I50.33 Acute on chronic diastolic (congestive) heart failure; E87.1 Hypo-osmolality and hyponatremia; K70.30 Alcoholic cirrhosis of liver without ascites; F10.11 Alcohol abuse, in remission; E66.01 Morbid (severe) obesity due to excess calories; I11.0 Hypertensive heart disease with heart failure; D69.59 Other secondary thrombocytopenia; J44.9 Chronic obstructive pulmonary disease, unspecified; E03.9 Hypothyroidism, unspecified; F17.210 Nicotine dependence, cigarettes, uncomplicated; E87.70 Fluid overload, unspecified; Z11.52 Encounter for screening for COVID-19; Z68.23 Body mass index [BMI] 23.0-23.9, adult; Z98.1 Arthrodesis status
CPT/HCPCS: 36415; 36600; 51702; 70450; 71045; 74176; 76705; 80048; 80051; 80053; 80076; 80306; 80307; 81003; 82140; 82330; 82805; 83605; 83735; 83880; 84100; 84145; 84443; 85025; 85610; 85730; 87040; 87426; 87804; 93005; 96372; 97110; 97161; 97530; 99285; J0696; J1650; J3480

== ENCOUNTER 2023-12-15 08:07 | Inpatient (IN) | payer MEDICARE, OTHER, MEDICAID, SELFPAY ==
[2023-12-15] VITALS (105 sets, daily range): BP systolic 116–165; BP diastolic 65–93; PULSE 59–88; RESP 9–73; TEMP 36.6–36.9; O2SAT 92–98; BMI 32.0
--- NOTE | 2023-12-15 08:15 | ECG_ITS ---
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 Measurements Intervals [place] Rate: 72 P: 72 NV: 207 QRS: -78 QRSD: 137 T: 60 QT: 443 QTc: 487 Interpretive Statements SINUS RHYTHM INTRAVENTRICULAR CONDUCTION DELAY [130+ ms QRS DURATION] INTERPRETATION BASED ON A DEFAULT AGE OF 40 YEARS Compared to ECG 11/18/2023 18:48:29 Intraventricular conduction delay now present Left anterior fascicular block no longer present Myocardial infarct finding no longer present Electronically Signed On 12-15-2023 18:38:42 CDT by Missy Beck M.D. [email or web address]
--- NOTE | 2023-12-15 08:26 | XRR_ITS ---
PROCEDURE INFORMATION: Exam: XR Chest Exam date and time: 12/15/2023 8:34 AM Age: 58 years old Clinical indication: Cough and dyspnea; Additional info: Dyspnea/cough TECHNIQUE: Imaging protocol: Radiologic exam of the chest. Views: 1 view. COMPARISON: CR (CHEST, ) 11/18/2023 8:12 PM FINDINGS: Lungs: Mild curvilinear density at the left lung base with subjacent curvilinear lucency. No consolidation. Pleural spaces: Unremarkable. No pleural effusion. No pneumothorax. Heart/Mediastinum: Unremarkable. No cardiomegaly. Bones/joints: Unremarkable. XR/XR chest 1V portable [id number] IMPRESSION: Mild left basilar curvilinear density with subjacent curvilinear lucency favored to represent atelectasis or scarring. Pneumoperitoneum thought less likely but recommend correlation with clinical findings and consideration for abdominopelvic CT.
[2023-12-15 08:34] LABS: Basophils % 0.8 %; Eosinophils # 0.2 10^3/uL (0.0-0.8); Eosinophils % 5.6 %; Hematocrit 30.3 % (37-53); Lymphocytes # 1.7 10^3/uL (0.8-4.8); Lymphocytes % 48.2 %; Mean Corpuscular HGB Conc 31.4 g/dL (30-55); Mean Corpuscular Hemoglobin 26.9 pg (27-33); Mean Corpuscular Volume 85.8 fl (82-101); Mean Platelet Volume 9.7 fL (7.4-10.4); Monocytes # 0.3 10^3/uL (0.2-0.9); Monocytes % 8.1 %; Neutrophils # 1.33 10^3/uL (1.8-7.7); Neutrophils % 37.3 %; Nucleated Red Blood Cells % 0 %; Platelet Count 127 10^3/cmm (157-399); Red Blood Count 3.53 10^6/uL (3.85-5.65); Red Cell Distribution Width 21.4 % (12.1-15.1); White Blood Count 3.57 10^3/uL (3.29-11.43)
[2023-12-15 08:38] LABS: ABG PCO2 41.4 mmHg (35-45); ABG PH Result 7.46 (7.35-7.45); Alveolar-Arterial Oxygen Gradi 10.8 mmHg (5-10); Arterial Blood Gas Hematocrit 28.1 % (42-52); Base Excess ABG 4.9 mmol/L (-2.0-2.0); Blood Gas Operator Identificat AMH; Blood Gas Sample Site Brachial, left; Blood Gas Sample Type Arterial; Carboxyhemoglobin 1.6 %THgb (0.4-20.1); HCO3 ABG 29.2 mmol/L (22-26); HGB O2 Sat 90.4 % (95-100); Ionized Calcium Level - ABG 1.2 mmol/L (1.1-1.4); Methemoglobin 0.5 % (0.4-1.5); Oxygen Device NC; Oxygen Saturation ABG 92.3; PO2 ABG 63.6 mmHg (80.0-100.0); PO2 FiO2 Ratio Arterial Blood 0; Potassium Level - ABG 3.5 mmol/L (3.5-5.0); Total Hemoglobin 9.2 g/dL (14-18)
--- NOTE | 2023-12-15 08:40 | ED_ITS ---
HPI - Altered Mental Status 2 General: Chief Complaint: Altered Mental Status Stated Complaint: weakness/ Lethargic Time Seen by Provider: 12/15/23 08:25 Source: patient Mode of arrival: EMS History of Present Illness: 58-year-old male with a history of alcoh olic liver cirrhosis presents to the emergency room weak lethargic essentially obtunded. Patient has a known history of previous episodes of hepatoencephalopathy as well as CO2 retention. He was not on excessive oxygen when he arrived here. He responds to verbal stimulus with mumbling but no clear coherent response. Currently on 2 L/min. complaint: altered mental status Review of Systems 2 General: Reports: ROS unobtainable due to mental status PFSH ED 2 PFSH: Medical History Hepatic encephalopathy Obesity Diastolic CHF Shingles Alcoholism Alcoholic cirrhosis of liver Thrombocytopenia Anemia Alcohol withdrawal COPD exacerbation Acute encephalopathy GI bleeding Acute blood loss anemia Acidosis, lactic Rhabdomyolysis Acute GI bleeding Back pain Liver cirrhosis Congestive heart failure Anemia Ascites Lumbar radiculopathy, chronic Hypothyroid Alcoholism COPD (chronic obstructive pulmonary disease) Surgical History S/P laminectomy with spinal fusion Family History Father CAD (coronary artery disease) Social History Smoking and tobacco/nicotine status: current every day tobacco/nicotine user Physical Exam 2 Const: NUTRITIONAL APPEARANCE: obese ORIENTATION/CONSCIOUSNESS: Yes patient obtunded HENMT: COMMON NORMALS: normocephalic, atraumatic and hearing grossly normal bilaterally HEAD & SCALP: normocephalic and atraumatic Resp: COMMON NORMALS: normal respiratory effort, No retractions, No use of accessory muscles and clear to auscultation bilaterally AUSCULTATION: clear to auscultation bilaterally Cardio: COMMON NORMALS: regular rate, regular rhythm and No murmurs present (Cardio) RATE: regular rate RHYTHM: regular rhythm GI: COMMON NORMALS: Soft to palpation and No hepatosplenomegaly present A USCULTATION: Yes normoactive bowel sounds PALPATION: Yes Soft to palpation, No Tenderness to palpation present (GI), No Guarding due to palpation present (GI) and Yes No hepatosplenomegaly present Extremity: COMMON NORMALS: normal to inspection, capillary refill normal, no clubbing, cyanosis or edema, no calf tenderness and no pedal edema Skin: COMMON NORMALS: no rashes or lesions noted GENERAL SKIN EXAM: no rashes or lesions noted Course 2 Vital Signs: Vital signs: Vital Signs Temperature 98.5 F 12/15/23 08:10 Pulse Rate 72 12/15/23 11:49 Respiratory Rate 18 12/15/23 08:10 Blood Pressure 159/79 12/15/23 11:49 Pulse Oximetry 96 12/15/23 11:49 Oxygen Delivery Me thod Nasal Cannula 12/15/23 11:00 Oxygen Flow Rate 2 12/15/23 11:00 MDM - Altered Mental Status Medical Decision Making Hepatic encephalopathy with an ammonia level of 184. Will admit has been given IV fluids at this time. Discussed with hospitalist service orders written Medical Records I reviewed the patient's medical records. Lab Data I reviewed the patient's lab results. 12/15/23 08:22 12/15/23 08:22 Radiology Impressions Chest X-Ray 12/15/23 08:26 IMPRESSION: Mild left basilar curvilinear density with subjacent curvilinear lucency favored to represent atelectasis or scarring. Pneumoperitoneum thought less likely but recommend correlation with clinical findings and consideration for abdominopelvic CT. ADDENDUM: 12/15/23899 Findings were discussed with KORY LEON at 12/15/2023 8:58 AM CDT. Laboratory Results WBC 3.57 10^3/uL (3.29-11.43) 12/15/23 08:22 RBC 3.53 10^6/uL (3.85-5.65) L 12/15/23 08:22 Hgb 9.50 g/dL (11.27-16.99) L 12/15/23 08:22 Hct 30.3 % (37-53) L 12/15/23 08:22 MCV 85.8 fl (82-101) 12/15/23 08:22 MCH 26.9 pg (27-33) L 12/15/23 08: MCHC 31.4 g/dL (30-55) 12/15/23 08:22 RDW 21.4 % (12.1-15.1) H 12/15/23 08: Plt Count 127 10^3/cmm (157-399) L 12/15/23 08: MPV 9.7 fL (7.4-10.4) 12/15/23 08: Neut % (Auto) 37.3 % 12/15/23 08: Lymph % (Auto) 48.2 % 12/15/23 08: [place] % (Auto) 8.1 % 12/15/23 08: Eos % (Auto) 5.6 % 12/15/23 08: Baso % (Auto) 0.8 % 12/15/23 08: Neut # (Auto) 1.33 10^3/uL (1.8-7.7) L 12/15/23 08: Lymph # (Auto) 1.7 10^3/uL (0.8-4.8) 12/15/23 08: [place] # (Auto) 0.3 10^3/uL (0.2-0.9) 12/15/23 08: Eos # (Auto) 0.2 10^3/uL (0.0-0.8) 12/15/23 08: Baso # (Auto) 0.0 10^3/uL (0.0-0.1) 12/15/23 08: Nucleated RBC % (auto) 0 % 12/15/23 08: Nucleated RBCs # 0.0 /100WBC 12/15/23 08: Specimen Type Arterial 12/15/23 08:27 Sample Site Brachial, left 12/15/23 08:27 ABG pH 7.46 (7.35-7.45) H 12/15/23 08:27 ABG pCO2 41.4 mmHg (35-45) 12/15/23 08: ABG pO2 63.6 mmHg (80.0-100.0) L 12/15/23 08: ABG PO2/FiO2 Ratio 0 12/15/23 08: ABG HCO3 29.2 mmol/L (22-26) H 12/15/23 08:27 ABG O2 Saturation 92.3 12/15/23 08: ABG Base Excess 4.9 mmol/L (-2.0-2.0) H 12/15/23 08:27 Ward Test N/a 12/15/23 08:27 A-a O2 Gradient 10.8 mmHg (5-10) H 12/15/23 08:27 Hematocrit 28.1 % (42-52) L 12/15/23 08:27 Hgb O2 Saturation 90.4 % (95-100) L 12/15/23 08:27 Carboxyhemoglobin 1.6 %THgb (0.4-20.1) 12/15/23 08:27 Methemoglobin 0.5 % (0.4-1.5) 12/15/23 08:27 Total Hemoglobin 9.2 g/dL (14-18) L 12/15/23 08:27 Sodium 140.0 mmol/L (131-143) 12/15/23 08:27 Potassium 3.5 mmol/L (3.5-5.0) 12/15/23 08:27 Glucose 113.0 mg/dL (70-115) 12/15/23 08:27 Ionized Calcium 1.2 mmol/L (1.1-1.4) 12/15/23 08:27 O2 Delivery Device Nc 12/15/23 08:27 O2 Liters/Min 2.0 % 12/15/23 08:27 FiO2 28.0 % 12/15/23 08:27 Dental Coordinator ID Amh 12/15/23 08:27 Sodium 136 mmol/L (136-145) 12/15/23 08:22 Potassium 4.1 mmol/L (3.5-5.1) 12/15/23 08:22 Chloride 99 mmol/L (98-107) 12/15/23 08:22 Carbon Dioxide 27 mmol/L (22-29) 12/15/23 08:22 Anion Gap 14.1 (5-19) 12/15/23 08:22 BUN 16 mg/dL (6-20) 12/15/23 08:22 Creatinine 0.9 mg/dL (0.7-1.2) 12/15/23 08:22 GFR Calculation 87.0 mL/min (90-130) L 12/15/23 08:22 Glucose 116 mg/dL (65-115) H 12/15/23 08:22 Calculated Osmolality 284 mOsm/kg (285-295) L 12/15/23 08:22 Lactic Acid 1.9 mmol/L (0.5-2.2) 12/15/23 08:22 Calcium 8.8 mg/dL (8.5-10.5) 12/15/23 08:22 Magnesium 1.5 mg/dL (1.7-2.3) L 12/15/23 08:22 Total Bilirubin 1.3 mg/dL (0.15-1.2) H 12/15/23 08:22 AST 41 U/L (0-40) H 12/15/23 08:22 ALT 13 U/L (0-41) 12/15/23 08:22 Alkaline Phosphatase 114 U/L (40-130) 12/15/23 08:22 Ammonia 184 umol/L (16-60) H 12/15/23 08:22 Troponin T Baseline 47 ng/L (0-15) H 12/15/23 08:22 Troponin T 120 Minute 46.56 ng/L (0-15) H 12/15/23 10:26 Delta Troponin T -0.44 ABS# (0-10) L 12/15/23 10:26 NT-Pro-B Natriuret Pep < 36 pg/mL (0-125) 12/15/23 08:22 Total Protein 8.2 g/dL (6.6-8.7) 12/15/23 08:22 Albumin 2.8 g/dL (3.5-5.2) L 12/15/23 08:22 Globulin 5.4 g/dL (1.3-4.6) H 12/15/23 08:22 All radiology interpretation(s) finalized by discharge Discharge Plan Discharge Admit Provider: Remigio Gagnon Condition: Stable Coding Level of Care Code ED Lens Mold Setter for Carlos Enrique Merritt
[2023-12-15 08:47] LABS: Lactic Sepsis W/Reflex 1.9 mmol/L (0.5-2.2)
[2023-12-15 08:48] LABS: Troponin(5th) Baseline 47 ng/L (0-15)
[2023-12-15 08:55] LABS: Ammonia 184 umol/L (16-60)
--- NOTE | 2023-12-15 08:58 | CT_ITS ---
WS: [id number] CT ABDOMEN AND PELVIS NONCONTRAST HISTORY: abnormal CXR, possible free air subdiphragmatic TECHNIQUE: Imaging performed through the abdomen and pelvis. Coronal and sagittal reformats are submi tted. All CT scans at [facility] use at least one of these dose optimization techniques: auto mated exposure control; mA and/or kV adjustment per patient size (includes targeted exams where dose is matched to clinical indication); or iterative reconstruction. DLP: 995.33 mGy.cm COMPARISON: Chest radiograph 12/15/2023, prior CT abdomen/pelvis 11/20/2023 Lower thorax: Mild dependent changes at the lung bases. Normal size heart. Small hiatal hernia. Liver: Liver is dense and cirrhotic. No bile duct dilatation is evident. Gallbladder: Normally distended with stones. No adjacent inflammation. Pancreas: Normal size and attenuation. Normal pancreatic duct. No pancreatitis or mass. Spleen: Mildly enlarged spleen. Adrenal glands: Normal. No mass. Right kidney: Normal size kidney with no mass or hydronephrosis. Left kidney: Normal size kidney with no mass or hydronephrosis. Aorta: Mild atherosclerosis abdominal aorta with no aneurysm. No free fluid and no free air. There is very mild hazy attenuation within the omentum and mesentery w hich is probably related to patient's liver disease. Mild engorgement of the central mesenteric veins . No mass. GI tract: Nondistended stomach. No small bowel obstruction. Moderate constipation and inspissated fec al material. Normal appendix. Abdominal wall: Negative. No hernia. Pelvis: No free fluid. Negative urinary bladder. Osseous structures: Unremarkable. IMPRESSION: 1. No free intraperitoneal air. 2. Cirrhosis and portal venous hypertension. 3. Cholelithiasis without acute cholecystitis. 4. Small hiatal hernia. 5. Moderate inspissated fecal material in the distal colon. No obstruction.
--- NOTE | 2023-12-15 08:59 | PC.PHAR ---
pt is from [facility] [phone]-curtis nurse from [facility] states the pt only had lactulose today-medications entered are from the pts mare and tar
[2023-12-15 09:04] LABS: Alanine Aminotransferase 13 U/L (0-41); Albumin Level 2.8 g/dL (3.5-5.2); Alkaline Phosphatase 114 U/L (40-130); Blood Urea Nitrogen 16 mg/dL (6-20); Calcium 8.8 mg/dL (8.5-10.5); Carbon Dioxide 27 mmol/L (22-29); Chloride 99 mmol/L (98-107); Creatinine Clr Calc Pharmacy 111.8768; Globulin 5.4 g/dL (1.3-4.6); Glucose 116 mg/dL (65-115); Magnesium 1.5 mg/dL (1.7-2.3); NT Pro B Type Natriuretic Pept < 36 pg/mL (0-125); Osmolality Calculated 284 mOsm/kg (285-295); Sodium 136 mmol/L (136-145); Total Bilirubin 1.3 mg/dL (0.15-1.2); Total Protein 8.2 g/dL (6.6-8.7)
[2023-12-15 09:06] LABS: Anion Gap 14.1 (5-19); Aspartate Amino Transferase 41 U/L (0-40); Potassium 4.1 mmol/L (3.5-5.1)
--- NOTE | 2023-12-15 10:21 | ECG_ITS ---
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 Measurements Intervals [place] Rate: 70 P: 70 LA: 212 QRS: -71 QRSD: 133 T: 59 QT: 442 QTc: 478 Interpretive Statements SINUS RHYTHM WITH FIRST DEGREE AV BLOCK INTRAVENTRICULAR CONDUCTION DELAY [130+ ms QRS DURATION] Compared to ECG 12/15/2023 08:15:04 First degree AV block now present Electronically Signed On 12-15-2023 18:45:59 CDT by Missy Beck M.D. [email or web address] [facility] [place].[email or web address] general hospitalBiocyclekettering health springfield.[email or web address]/store/[id number]
[2023-12-15 10:50] LABS: Troponin 5 2HR 46.56 ng/L (0-15)
[2023-12-15 10:51] LABS: Troponin 5 2HR Delta -0.44 ABS# (0-10)
[2023-12-15] MEDS: magnesium sulfate premix 2 GM/50 ML PIGGYBACK IV (12:10)
--- NOTE | 2023-12-15 12:44 | PM.HP ---
Providers/Chief Complaint Admitting Physician: Remigio Gagnon MD Primary Care Provider: Elizabeth Gagnon MD Chief Complaint: weakness/ Lethargic History of Present Illness Eliezer Reynolds is a 58 year old male presenting to the emergency department from nursing facility with lethargy. Patient cannot give a history. [facility] they report they noticed some lethargy last night. He does not always take his lactulose regularly. Certainly missed the dose last night and may have before. They were able to get 1 dose this morning prior to him coming in. No fevers, abdominal pain, nausea, vomiting, blood in stool or black or tarry stool. He has had admissions here before, with hepatic encephalopathy. Review of Systems General: Reports: ROS unobtainable due to medical condition Medications/Allergies Home Medications Medication Instructions Recorded Confirmed Last Taken Type levothyroxine 50 mcg tablet 50 mcg PO DAILY@11/18/21 12/15/23 11/18/23 History (Euthyrox) lidocaine 5 % topical patch See Rx Instructions .Route .COMPLEX 02/18/23 12/15/23 11/16/23 History potassium chloride 10 mEq 10 meq PO DAILY@09/11/23 12/15/23 11/18/23 History tablet,extended release folic acid 1 mg tablet 1 mg PO DAILY@10/20/23 12/15/23 11/18/23 History pantoprazole 40 mg tablet,delayed 40 mg PO DAILY@10/20/23 12/15/23 11/18/23 History release acetazolamide 250 mg tablet 250 mg PO DAILY@11/02/23 12/15/23 11/18/23 History duloxetine 30 mg capsule,delayed 30 mg PO DAILY@12/15/23 12/15/23 Unknown History release fluticasone furoate 100 1 inh inhalation DAILY@12/15/23 12/15/23 Unknown History mcg-vilanterol 25 mcg/dose inhalation powder (Breo Ellipta) furosemide 40 mg tablet 40 mg PO BID@12/15/23 12/15/23 Unknown History lactulose 20 gram/30 mL oral 20 g PO TID@,,12/15/23 12/15/23 12/15/23 History solution multivitamin with folic acid 400 1 tab PO DAILY@12/15/23 12/15/23 Unknown History mcg tablet (Thera) rifaximin 550 mg tablet (Xifaxan) 550 mg PO BID@08,12/15/23 12/15/23 Unknown History spironolactone 25 mg tablet 50 mg PO BID@08,20 12/15/23 12/15/23 Unknown History tramadol 50 mg tablet 50 mg PO TID@08,14,20 12/15/23 12/15/23 Unknown History trazodone 100 mg tablet 200 mg PO BEDTIME@20 12/15/23 12/15/23 Unknown History Allergies Allergy/AdvReac Type Severity Reaction Status Date / Time azithromycin Allergy ALGY-Anaphy Verified 12/15/23 08:59 laxis Penicillins Allergy Unknown Verified 12/15/23 08:59 PFSH Acute PFSH: Medical History Hepatic encephalopathy Obesity Diastolic CHF Shingles Alcoholism Alcoholic cirrhosis of liver Thrombocytopenia Anemia Alcohol withdrawal COPD exacerbation Acute encephalopathy GI bleeding Acute blood loss anemia Acidosis, lactic Rhabdomyolysis Acute GI bleeding Back pain Liver cirrhosis Congestive heart failure Anemia Ascites Lumbar radiculopathy, chronic Hypothyroid Alcoholism COPD (chronic obstructive pulmonary disease) Surgical History S/P laminectomy with spinal fusion Family History Father CAD (coronary artery disease) Social History Smoking and tobacco/nicotine status: current every day tobacco/nicotine user Vitals/I&O/Wt Last Vital Signs Temp 98.5 F 12/15/23 08:10 Pulse 72 12/15/23 11:49 Resp 18 12/15/23 08:10 BP 159/79 12/15/23 11:49 Pulse Ox 96 12/15/23 11:49 O2 Del Method Nasal Cannula 12/15/23 11:00 O2 Flow Rate 2 12/15/23 11:00 Weight last 48 hrs Weight 108.862 kg Physical Exam Narrative: General exam is a white male, who briefly becomes responsive to questions and was back to sleep HEENT: Atraumatic normocephalic oropharynx clear Neck is supple Cardiovascular regular rate and rhythm without murmur Lungs clear Abdomen rotund, no obvious pain to palpation. No severe distention. exam deferred Extremities trace edema bilaterally Skin no rash Neuro no obvious focal deficits. Data 12/15/23 08:22 12/15/23 08:22 Other Labs: ABG with pH 7.46, pCO2 41, pO2 64 on 2 L LFTs demonstrate an elevated bilirubin of 1.3 and AST of 41. Alk phos and ALT are normal Ammonia level 184 Magnesium level 1.5 Calcium normal, albumin 2.8 Abdomen/pelvis CT reviewed, which demonstrates evidence of cirrhosis, cholelithiasis without cholecystitis Chest x-ray which I reviewed no infiltrate EKG I reviewed demonstrates sinus rhythm left axis deviation, poor R wave progression. A&P Assessment and plan (1) Acute hepatic encephalopathy: Initiate lactulose Continue rifaximin Hydration Close follow-up Hold diuretics Check urinalysis (2) Hypomagnesemia: Supplement magnesium, recheck tomorrow Plan Anemia with thrombocytopenia secondary to his chronic liver disease. CBC daily. COPD. DuoNeb as needed. Budesonide twice daily Multiple other medical problems as outlined in past medical history Full code SCDs for DVT prophylaxis. Secondary to significant cirrhosis, history of GI bleeding, history of elevated INR will not do pharmacologic anticoagulation. Protonix for GI prophylaxis Attestations Medical Necessity Statement*: Will need greater than 2 midnight stay for evaluation and treatment of hepatic encephalopathy with significant lethargy and profound hypoglycemia Diagnoses Acute hepatic encephalopathy K76.82 Hypomagnesemia E83.42 Time Spent (min) 57
--- NOTE | 2023-12-15 14:29 | ECG_ITS ---
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 Measurements Intervals [place] Rate: 76 P: 73 [place]: 198 QRS: -74 QRSD: 134 T: 61 QT: 435 QTc: 490 Interpretive Statements SINUS RHYTHM LEFT AXIS DEVIATION [QRS AXIS < -30] RIGHT BUNDLE BRANCH BLOCK [120+ ms QRS DURATION, UPRIGHT V1, 40+ ms S IN I/aVL/V4/V5/V6] POSSIBLE SEPTAL MYOCARDIAL INFARCTION , OF INDETERMINATE AGE [30 ms Q WAVE IN V1/V2] Compared to ECG 12/15/2023 10:21:04 Left-axis deviation now present Right bundle-branch block now present Myocardial infarct finding now present First degree AV block no longer present Intraventricular conduction delay no longer present Electronically Signed On 12-15-2023 18:47:19 CDT by Missy Beck M.D. [email or web address].ummc holmes countyePig Gameshighland district hospital.[email or web address]/store/[id number]
[2023-12-15 14:54] LABS: Troponin 5 6HR 44.77 ng/L (0-15)
[2023-12-15 15:00] LABS: Troponin 5 6HR Delta -2.23 ng/L (0-12)
[2023-12-15 15:00] LABS: Add Urine Microscopic? YES; Bilirubin Urine Neg (Negative); Blood Urine Neg (Negative); Glucose Urine UA Norm (Normal); Ketones Urine Negative (Negative); Leukocyte Esterase Urine Negative (Negative); Nitrate Urine Negative (Negative); Protein Urine Neg (Negative); Urine Appearance SL Hazy (CLEAR); Urine Color Yellow (Yellow); Urobilinogen Urine 4 mg/dL (Negative); pH Urine 8 (5-7)
[2023-12-15 15:02] LABS: Sulfosalicylic Acid Urine Negative (Negative)
[2023-12-15 15:04] LABS: Add Urine Culture? No; Amorphous Sediment Urine 2+ /hpf; Bacteria Urine TRACE /hpf; Mucus Urine TRACE /hpf; Squamous Epithelial Cell Urine 0-4 /hpf (0-5)
[2023-12-15] MEDS: pantoprazole 40 mg SDV IVP (15:19)
[2023-12-15] MEDS: sodium chloride 0.9% 1,000 ML 100 ML IV (15:19)
--- NOTE | 2023-12-15 18:40 | PC.NURSE ---
attempted report at 1830.
[2023-12-15] MEDS: budesonide 0.5 mg/2 mL Neb INHALATION (19:55)
[2023-12-15] MEDS: rifaximin 200 mg Tablet 600 MG PO (20:05)
[2023-12-15] MEDS: lactulose oral liq 20 gm/30 mL UDC PO (20:05)
--- NOTE | 2023-12-15 21:36 | PC.NURSE ---
Unable to complete immunization report due to patient being AMS and the records of the [facility] do not mention immunization records.
--- NOTE | 2023-12-15 21:39 | PC.NURSE ---
1929: Patient arrived to the ICU unit with stable vital signs but unable to communicate well.
[2023-12-16] VITALS (34 sets, daily range): BP systolic 124–169; BP diastolic 62–89; PULSE 55–81; RESP 10–20; TEMP 36.1–36.8; O2SAT 93–99; BMI 32.0
[2023-12-16] MEDS: sodium chloride 0.9% 1,000 ML 100 ML IV (00:28)
[2023-12-16] MEDS: lactulose oral liq 20 gm/30 mL UDC PO ×3 (02:12→13:59)
[2023-12-16] MEDS: pantoprazole 40 mg SDV IVP ×2 (02:12→13:59)
[2023-12-16] MEDS: levothyroxine 50 mcg Tablet PO (05:13)
[2023-12-16 06:29] LABS: Basophils % 0.8 %; Eosinophils # 0.3 10^3/uL (0.0-0.8); Eosinophils % 7.1 %; Hematocrit 31.4 % (37-53); Lymphocytes # 1.6 10^3/uL (0.8-4.8); Lymphocytes % 42.5 %; Mean Corpuscular HGB Conc 30.3 g/dL (30-55); Mean Corpuscular Volume 89.2 fl (82-101); Mean Platelet Volume 9.8 fL (7.4-10.4); Monocytes # 0.3 10^3/uL (0.2-0.9); Monocytes % 9.3 %; Neutrophils # 1.48 10^3/uL (1.8-7.7); Neutrophils % 40.3 %; Nucleated Red Blood Cells % 0 %; Platelet Count 109 10^3/cmm (157-399); Red Blood Count 3.52 10^6/uL (3.85-5.65); Red Cell Distribution Width 20.9 % (12.1-15.1); White Blood Count 3.67 10^3/uL (3.29-11.43)
[2023-12-16 06:47] LABS: Alanine Aminotransferase 12 U/L (0-41); Albumin Level 2.7 g/dL (3.5-5.2); Alkaline Phosphatase 104 U/L (40-130); Aspartate Amino Transferase 34 U/L (0-40); Blood Urea Nitrogen 11 mg/dL (6-20); Calcium 8.7 mg/dL (8.5-10.5); Carbon Dioxide 23 mmol/L (22-29); Chloride 105 mmol/L (98-107); Creatinine Clr Calc Pharmacy 162.0198; Globulin 5.3 g/dL (1.3-4.6); Glomerular Filtration Rate 138.9 mL/min (90-130); Glucose 124 mg/dL (65-115); Magnesium 1.5 mg/dL (1.7-2.3); Osmolality Calculated 285 mOsm/kg (285-295); Sodium 137 mmol/L (136-145); Total Bilirubin 1.5 mg/dL (0.15-1.2)
[2023-12-16 06:54] LABS: Anion Gap 12.6 (5-19); Potassium 3.6 mmol/L (3.5-5.1)
--- NOTE | 2023-12-16 08:00 | P.PN_ITS ---
Subjective 2 Subjective: Somnolent this morning, but awakens. Denies any complaints. No abdominal pain. No events overnight. Medications: Reviewed: Yes Vitals/I&O/Wt Last Vital Signs Temp 97 F L 12/16/23 07:30 Pulse 64 12/16/23 07:30 Resp 13 12/16/23 07:30 BP 154/71 12/16/23 07:30 Pulse Ox 96 12/16/23 07:30 O2 Del Method Nasal Cannula 12/16/23 07:30 O2 Flow Rate 2 12/16/23 07:30 12/15/23 12/16/23 12/16/23 22:59 06:59 14:59 Intake Total 1000 / 1050 Output Total 1825 / 1825 Balance 1000 / 1050 -1825 / -775 Weight last 48 hrs Weight 101.321 kg Weight 101.321 kg Weight 108.862 kg Physical Exam 2 Narrative: General exam no distress Neck is supple Cardiovascular regular rate and rhythm without murmur Lungs clear Abdomen rotund, no obvious pain to palpation. No severe distention. Extremities trace edema bilaterally Neuro no obvious focal deficits. Urinary Catheter Management: Flores: Cath Placed During This Visit: yes Reason for Continuing Indwelling Catheter: Accurate Measurement of Urinary Output in Critically Ill Patients Urinary Catheter Date of Insertion: 12/15/23 Urinary Catheter Time of Insertion: 14:13 Data 12/16/23 06:15 12/16/23 06:15 A&P Assessment and plan (1) Acute hepatic encephalopathy: Continue lactulose Continue rifaximin Stop hydration Transfer out of ICU Continue to hold diuretics currently No evidence of infection on urinalysis (2) Hypomagnesemia: Supplement again today. Magnesium level tomorrow. Plan Anemia with thrombocytopenia secondary to his chronic liver disease. CBC daily. COPD. DuoNeb as needed. Budesonide twice daily. No evidence of exacerbation Multiple other medical problems as outlined in past medical history Full code SCDs for DVT prophylaxis. Secondary to significant cirrhosis, history of GI bleeding, history of elevated INR will not do pharmacologic anticoagulation. Protonix for GI prophylaxis Attestations 2 Medical Necessity Statement*: Needs continued hospitalization for increase lactulose dosing, close monitoring of mental status. Possible discharge tomorrow back to nursing home facility if continues to improve. Diagnoses Acute hepatic encephalopathy K76.82 Hypomagnesemia E83.42 Time Spent (min) 21
[2023-12-16] MEDS: ipratropium-albuterol 3 mL Neb INHALATION ×2 (08:01→20:40)
[2023-12-16] MEDS: budesonide 0.5 mg/2 mL Neb INHALATION ×2 (08:01→20:40)
[2023-12-16] MEDS: magnesium sulfate premix 2 GM/50 ML PIGGYBACK IV (09:03)
[2023-12-16] MEDS: duloxetine 30 mg Capsule PO (09:03)
[2023-12-16] MEDS: rifaximin 200 mg Tablet 600 MG PO ×2 (09:04→20:39)
--- NOTE | 2023-12-16 15:34 | PC.NURSE ---
Report called to [facility]. Report given to Alexandru. No questions.
--- NOTE | 2023-12-16 15:41 | PC.NURSE ---
Pt's mother notified of room transfer.
--- NOTE | 2023-12-16 15:58 | PC.NURSE ---
Addendum entered by Susi Mills RN 12/16/23 15:59: Just the Tshirt he is wearing. Original Note: Pt trasnfered to [facility] via W/C. No personal belongings without, just his bathing supplies.
[2023-12-17] MEDS: pantoprazole 40 mg SDV IVP (02:22)
[2023-12-17] MEDS: lactulose oral liq 20 gm/30 mL UDC PO ×2 (02:22→09:10)
[2023-12-17 04:00] VITALS: BP 109/65; PULSE 77; RESP 18; TEMP 36.4; O2SAT 92
[2023-12-17] MEDS: levothyroxine 50 mcg Tablet PO (04:56)
[2023-12-17 05:41] VITALS: PULSE 70
[2023-12-17 07:42] VITALS: BP 123/55; PULSE 79; RESP 16; TEMP 36.7; O2SAT 91
--- NOTE | 2023-12-17 08:10 | PM.DCS ---
Discharge Providers Date of Admission: 12/15/23 11:41 Date of Discharge: December 17, 2023 Attending Provider at Admission: Remigio Gagnon MD Attending Provider at Discharge: Remigio Gagnon MD Primary Care Provider: Elizabeth Gagnon MD Diagnoses at Discharge Discharge Diagnosis (1) Acute hepatic encephalopathy: Status: Acute (2) Hypomagnesemia: Status: Acute Reason for Visit Reason for Visit: weakness/ Lethargic Hospital Course Hospital Course Patient is a 58-year-old white male, presenting from nursing facility with lethargy and decreased responsiveness. He was found to have hepatic encephalopathy. Infection as cause was considered but not found. He had no history of fever, normal white count. It was also noted that he had been missing some doses of his lactulose at the nursing facility although he has been compliant with his rifaximin. IV fluids were initiated, diuretics held, Xifaxan continued and lactulose increased to 4 times daily. With this, by day 2 he was still lethargic but slightly better. By December 16 he was markedly better, back to baseline and it was felt he could go back to the nursing facility. He was given opportunity to ask questions and agreed with this plan. Family was also notified of his hospital stay and agreed with the plan. Physical Exam Narrative: General exam no distress Neuro alert and oriented without focal deficits Cardiovascular regular rate and rhythm Lungs clear Abdomen soft Extremities no sinus clubbing edema Urinary Catheter Management: Flores: Cath Placed During This Visit: yes Reason for Continuing Indwelling Catheter: Accurate Measurement of Urinary Output in Critically Ill Patients Urinary Catheter Date of Insertion: 12/15/23 Urinary Catheter Time of Insertion: 14:13 Discharge Data Studies Completed and Pending Completed Studies During Hospitalization Category Date Time Status CT abdomen pelvis [facility] [id number] Stat Cat Scan 12/15/23 08:58 Completed XR chest 1V portable [id number] Stat Exams 12/15/23 08:26 Completed Radiology Impressions Chest X-Ray 12/15/23 08:26 IMPRESSION: Mild left basilar curvilinear density with subjacent curvilinear lucency favored to represent atelectasis or scarring. Pneumoperitoneum thought less likely but recommend correlation with clinical findings and consideration for abdominopelvic CT. ADDENDUM: 12/15/23 0900 Findings were discussed with CORINE LEON at 12/15/2023 8:58 AM CDT. Laboratory Results WBC 3.67 10^3/uL (3.29-11.43) 12/16/23 06:15 RBC 3.52 10^6/uL (3.85-5.65) L 12/16/23 06:15 Hgb 9.50 g/dL (11.27-16.99) L 12/16/23 06:15 Hct 31.4 % (37-53) L 12/16/23 06:15 MCV 89.2 fl (82-101) 12/16/23 06:15 MCH 27.0 pg (27-33) 12/16/23 06:15 MCHC 30.3 g/dL (30-55) 12/16/23 06:15 RDW 20.9 % (12.1-15.1) H 12/16/23 06:15 Plt Count 109 10^3/cmm (157-399) L 12/16/23 06:15 MPV 9.8 fL (7.4-10.4) 12/16/23 06:15 Neut % (Auto) 40.3 % 12/16/23 06:15 Lymph % (Auto) 42.5 % 12/16/23 06:15 [place] % (Auto) 9.3 % 12/16/23 06:15 Eos % (Auto) 7.1 % 12/16/23 06:15 Baso % (Auto) 0.8 % 12/16/23 06:15 Neut # (Auto) 1.48 10^3/uL (1.8-7.7) L 12/16/23 06:15 Lymph # (Auto) 1.6 10^3/uL (0.8-4.8) 12/16/23 06:15 [place] # (Auto) 0.3 10^3/uL (0.2-0.9) 12/16/23 06:15 Eos # (Auto) 0.3 10^3/uL (0.0-0.8) 12/16/23 06:15 Baso # (Auto) 0.0 10^3/uL (0.0-0.1) 12/16/23 06:15 Nucleated RBC % (auto) 0 % 12/16/23 06:15 Nucleated RBCs # 0.0 /100WBC 12/16/23 06:15 Specimen Type Arterial 12/15/23 08:27 Sample Site Brachial, left 12/15/23 08:27 ABG pH 7.46 (7.35-7.45) H 12/15/23 08: ABG pCO2 41.4 mmHg (35-45) 12/15/23 08: ABG pO2 63.6 mmHg (80.0-100.0) L 12/15/23 08: ABG PO2/FiO2 Ratio 0 12/15/23 08: ABG HCO3 29.2 mmol/L (22-26) H 12/15/23 08: ABG O2 Saturation 92.3 12/15/23 08: ABG Base Excess 4.9 mmol/L (-2.0-2.0) H 12/15/23 08: Ward Test N/a 12/15/23 08: A-a O2 Gradient 10.8 mmHg (5-10) H 12/15/23 08: Hematocrit 28.1 % (42-52) L 12/15/23 08: Hgb O2 Saturation 90.4 % (95-100) L 12/15/23 08:27 Carboxyhemoglobin 1.6 %THgb (0.4-20.1) 12/15/23 08: Methemoglobin 0.5 % (0.4-1.5) 12/15/23 08:27 Total Hemoglobin 9.2 g/dL (14-18) L 12/15/23 08:27 Sodium 140.0 mmol/L (131-143) 12/15/23 08:27 Potassium 3.5 mmol/L (3.5-5.0) 12/15/23 08:27 Glucose 113.0 mg/dL (70-115) 12/15/23 08:27 Ionized Calcium 1.2 mmol/L (1.1-1.4) 12/15/23 08: O2 Delivery Device Nc 12/15/23 08:27 O2 Liters/Min 2.0 % 12/15/23 08:27 FiO2 28.0 % 12/15/23 08:27 Dishwashing Machine Operator ID [email or web address] 12/15/23 08:27 Sodium 137 mmol/L (136-145) 12/16/23 06:15 Potassium 3.6 mmol/L (3.5-5.1) 04/11/24 06:15 Chloride 105 mmol/L (98-107) 12/16/23 06:15 Carbon Dioxide 23 mmol/L (22-29) 12/16/23 06:15 Anion Gap 12.6 (5-19) 12/16/23 06:15 BUN 11 mg/dL (6-20) 12/16/23 06:15 Creatinine 0.6 mg/dL (0.7-1.2) L 12/16/23 06:15 GFR Calculation 138.9 mL/min (90-130) H 12/16/23 06:15 Glucose 124 mg/dL (65-115) H 12/16/23 06:15 Calculated Osmolality 285 mOsm/kg (285-295) 12/16/23 06:15 Lactic Acid 1.9 mmol/L (0.5-2.2) 12/15/23 08:22 Calcium 8.7 mg/dL (8.5-10.5) 12/16/23 06:15 Magnesium 1.5 mg/dL (1.7-2.3) L 12/16/23 06:15 Total Bilirubin 1.5 mg/dL (0.15-1.2) H 12/16/23 06:15 AST 34 U/L (0-40) 12/16/23 06:15 ALT 12 U/L (0-41) 12/16/23 06:15 Alkaline Phosphatase 104 U/L (40-130) 12/16/23 06:15 Ammonia 184 umol/L (16-60) H 12/15/23 08:22 Troponin T Baseline 47 ng/L (0-15) H 12/15/23 08:22 Troponin T 120 Minute 46.56 ng/L (0-15) H 12/15/23 10:26 Delta Troponin T -0.44 ABS# (0-10) L 12/15/23 10:26 Troponin T Hi Sens 6Hr 44.77 ng/L (0-15) H 12/15/23 14:26 Troponin T Hi Sens 6Hr Delta -2.23 ng/L (0-12) L 12/15/23 14:26 NT-Pro-B Natriuret Pep < 36 pg/mL (0-125) 12/15/23 08:22 Total Protein 8.0 g/dL (6.6-8.7) 12/16/23 06:15 Albumin 2.7 g/dL (3.5-5.2) L 12/16/23 06:15 Globulin 5.3 g/dL (1.3-4.6) H 12/16/23 06:15 Urine Color Yellow (Yellow) 12/15/23 14:10 Urine Appearance Sl hazy (CLEAR) A 12/15/23 14:10 Urine pH 8 (5-7) H 12/15/23 14:10 Ur Specific [place] 1.010 (1.005-1.030) 12/15/23 14:10 Urine Protein Neg (Negative) 12/15/23 14:10 Urine Glucose (UA) Norm (Normal) 12/15/23 14:10 Urine Ketones Negative (Negative) 12/15/23 14:10 Urine Blood Neg (Negative) 12/15/23 14:10 Urine Nitrate Negative (Negative) 12/15/23 14:10 Urine Bilirubin Neg (Negative) 12/15/23 14:10 Prot Sulfosalicylic Acd Negative (Negative) 12/15/23 14:10 Urine Urobilinogen 4 mg/dL (Negative) H 12/15/23 14:10 Ur Leukocyte Esterase Negative (Negative) 12/15/23 14:10 Urine RBC None /hpf (0-2) 12/15/23 14:10 Urine WBC None /hpf (0-5) 12/15/23 14:10 Ur Squamous Epith Cells 0-4 /hpf (0-5) H 12/15/23 14:10 Amorphous Sediment 2+ /hpf 12/15/23 14:10 Urine Bacteria Trace /hpf (NONE) 12/15/23 14:10 Urine Mucus Trace /hpf 12/15/23 14:10 Vitals Last Vital Signs Temp 98.1 F 12/17/23 07:42 Pulse 79 12/17/23 07:42 Resp 16 12/17/23 07:42 BP 123/55 12/17/23 07:42 Pulse Ox 91 12/17/23 07:42 O2 Del Method Room Air 12/17/23 07:42 O2 Flow Rate 2 12/16/23 09:00 Discharge Plan Discharge Patient Disposition: Xfer SNF Condition: Stable Prescriptions: Continued acetazolamide 250 mg tablet 250 mg PO DAILY@08 levothyroxine [Euthyrox] 50 mcg tablet 50 mcg PO DAILY@05 potassium chloride 10 mEq tablet extended release 10 meq PO DAILY@08 furosemide 40 mg Tablet 40 mg PO BID@08,20 tramadol 50 mg tablet 50 mg PO TID@08,14,20 spironolactone 25 mg Tablet 50 mg PO BID@08,20 trazodone 100 mg tablet 200 mg PO BEDTIME@20 duloxetine 30 mg capsule,delayed release(DR/EC) 30 mg PO DAILY@08 Xifaxan 550 mg tablet 550 mg PO BID@08,20 Thera 400 mcg Tablet 1 tab PO DAILY@08 Breo Ellipta 100-25 mcg/dose blister with device 1 inh inhalation DAILY@08 lidocaine 5 % adhesive patch,medicated See Rx Instructions .ROUTE .COMPLEX Rx Instructions: apply one patch transdermally as directed ON FOR 12H OFF FOR 12 HR as needed pantoprazole 40 mg tablet,delayed release (DR/EC) 40 mg PO DAILY@06 folic acid 1 mg tablet 1 mg PO DAILY@08 Changed lactulose 20 gram/30 mL solution 20 g PO QID Qty: 3000 0RF Discharge Orders: Discharge Order (Routine); Ordered 12/17/23 Ordered By: Remigio Gagnon Referrals: [facility] [Outside] Elizabeth Gagnon MD [Primary Care Provider] - Discharge Diet: Cardiac Discharge Activity: Increase activity as tolerated Patient Instructions: Hepatic Encephalopathy (DC), Hypomagnesemia (DC), Altered Mental Status (ED) Activity Restrictions/Additional Instructions: Will increase lactulose to 4 times daily. Do not skip any doses. If patient is not having at least 3 loose stools a day his ammonia level may climb and he may require readmission. [facility] 5 days with CBC and CMP. Discharge Attestations Time Spent in Discharge Care*: greater than 30 min Status at Discharge: Behavioral status at discharge: cooperative, Quality Metrics Clinical Quality Measures [ No reported AMI, CVA or VTE this stay] Coding Level of Care Code 88272 Total time (in minutes) for Discharge: 37 Diagnoses Acute hepatic encephalopathy K76.82 Hypomagnesemia E83.42
[2023-12-17 09:00] VITALS: PULSE 79; RESP 18; O2SAT 95
[2023-12-17] MEDS: budesonide 0.5 mg/2 mL Neb INHALATION (09:00)
[2023-12-17] MEDS: ipratropium-albuterol 3 mL Neb INHALATION (09:00)
[2023-12-17] MEDS: duloxetine 30 mg Capsule PO (09:11)
[2023-12-17] MEDS: rifaximin 200 mg Tablet 600 MG PO (09:33)
[2023-12-17 10:09] VITALS: PULSE 79; RESP 18; O2SAT 95
--- NOTE | 2023-12-17 10:25 | PC.SOCIAL ---
IMM Update pg 2 of IMM updated and reviewed w/ patient. Copy provided and copy dated, initialed and placed in chart.
[2023-12-17 11:04] LABS: SARS Covid-2 Antigen negative (Negative)
[2023-12-17 11:27] VITALS: BP 112/73; PULSE 92; RESP 16; TEMP 36.7; O2SAT 98
== END 2023-12-17 12:20 | disposition skilled nursing facility (03) | DRG 443 ==
LOC: ER 08:42 → ER IP 11:42 → ICU 17:55 → MEDSURG 12-16 15:49
PROVIDERS: Admitting Provider Internal Medicine; Emergency Provider Family Medicine; PCP Family Medicine; Visit Provider Internal Medicine
DX: K76.82 Hepatic encephalopathy (principal); E83.42 Hypomagnesemia; Z72.0 Tobacco use; K70.30 Alcoholic cirrhosis of liver without ascites; D64.9 Anemia, unspecified; D69.6 Thrombocytopenia, unspecified; J44.9 Chronic obstructive pulmonary disease, unspecified; E03.9 Hypothyroidism, unspecified
CPT/HCPCS: 36415; 36600; 51702; 71045; 74176; 80051; 80053; 81001; 82140; 82330; 82805; 83605; 83735; 83880; 84484; 85025; 87426; 93005; 94640; 96365; 99285; C9113; J3475; J7030; J7626

== ENCOUNTER 2024-01-23 13:35 | Inpatient (IN) | payer MEDICARE, OTHER, SELFPAY ==
[2024-01-23] VITALS (8 sets, daily range): BP systolic 103–123; BP diastolic 48–81; PULSE 71–82; RESP 12–18; TEMP 36.6–36.7; O2SAT 91–98; BMI 25.8
--- NOTE | 2024-01-23 13:42 | ECG_ITS ---
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 Measurements Intervals [place] Rate: 69 P: 71 [place]: 180 QRS: -86 QRSD: 142 T: 73 QT: 463 QTc: 498 Interpretive Statements SINUS RHYTHM INTRAVENTRICULAR CONDUCTION DELAY [130+ ms QRS DURATION] Compared to ECG 12/15/2023 14:29:00 Intraventricular conduction delay now present Left-axis deviation no longer present Right bundle-branch block no longer present Myocardial infarct finding no longer present Electronically Signed On 01-23-2024 13:43:48 CDT by Dann Plaza M.D. [email or web address]
[2024-01-23 13:48] LABS: ABG PH Result 7.44 (7.35-7.45); Alveolar-Arterial Oxygen Gradi 5.8 mmHg (5-10); Base Excess ABG 2.9 mmol/L (-2.0-2.0); Blood Gas Allen Test Pos; Blood Gas Operator Identificat WALCI; Blood Gas Sample Site Radial, right; Blood Gas Sample Type Arterial; Carboxyhemoglobin 2.6 %THgb (0.4-20.1); HCO3 ABG 27.3 mmol/L (22-26); HGB O2 Sat 86.4 % (95-100); Ionized Calcium Level - ABG 1.2 mmol/L (1.1-1.4); Methemoglobin 0.7 % (0.4-1.5); Oxygen Device ROOM AIR; Oxygen Saturation ABG 89.3; PO2 ABG 55.4 mmHg (80.0-100.0); PO2 FiO2 Ratio Arterial Blood 0; Potassium Level - ABG 3.5 mmol/L (3.5-5.0); Total Hemoglobin 10.8 g/dL (14-18)
--- NOTE | 2024-01-23 14:03 | PC.PHAR ---
PT BROUGHT IN HOME MEDICATION LIST FROM [facility]- PTS MEDICATIONS VERIFIED USING LIST AND EXTERNAL MED LIST
[2024-01-23 14:25] LABS: Basophils # 0.1 10^3/uL (0.0-0.1); Basophils % 0.9 %; Eosinophils # 0.5 10^3/uL (0.0-0.8); Hematocrit 32.6 % (37-53); Lymphocytes # 2.3 10^3/uL (0.8-4.8); Lymphocytes % 35.9 %; Mean Corpuscular HGB Conc 32.2 g/dL (30-55); Mean Corpuscular Hemoglobin 27.9 pg (27-33); Mean Corpuscular Volume 86.7 fl (82-101); Mean Platelet Volume 11.1 fL (7.4-10.4); Monocytes # 0.5 10^3/uL (0.2-0.9); Monocytes % 7.3 %; Neutrophils # 3.12 10^3/uL (1.8-7.7); Neutrophils % 48.6 %; Nucleated Red Blood Cells % 0 %; Platelet Count 126 10^3/cmm (157-399); Red Blood Count 3.76 10^6/uL (3.85-5.65); Red Cell Distribution Width 18.4 % (12.1-15.1); White Blood Count 6.43 10^3/uL (3.29-11.43)
--- NOTE | 2024-01-23 14:38 | W.ED.BACK ---
HPI - Back Pain/Injury General: Chief Complaint: Back Pain/Injury Stated Complaint: LETHARGY; BACK PAIN Time Seen by Provider: 01/23/24 13:37 History of Present Illness: 58-year-old man with a history of alcoholism, cirrhosis, anemia, chronic back pain, COPD and hypothyroidism who presents to the emergency room with somnolence. Apparently physical therapy did come to his house today and thought he seemed extremely sleepy/somnolent. They called an ambulance. Apparently he had taken some meds for his back pain. On presentation here he does appear a bit sleepy but is oriented and answers questions appropriately and follows commands. No focal motor deficits. He denies any chest pain. No shortness of breath. No abdominal pain. No vomiting. No cough. Review of Systems Narrative: Constitutional symptoms: Negative except as documented in HPI. Skin symptoms: Negative except as documented in HPI. Eye symptoms: Negative except as documented in HPI. ENMT symptoms: Negative except as documented in HPI. Respiratory symptoms: Negative except as documented in HPI. Cardiovascular symptoms: Negative except as documented in HPI. Gastrointestinal symptoms: Negative except as documented in HPI. Genitourinary symptoms: Negative except as documented in HPI. Musculoskeletal symptoms: Negative except as documented in HPI. Neurologic symptoms: Negative except as documented in HPI. Psychiatric symptoms: Negative except as documented in HPI. Endocrine symptoms: Negative except as documented in HPI. [facility] ED PFSH: Medical History Hepatic encephalopathy Obesity Diastolic CHF Shingles Alcoholism Alcoholic cirrhosis of liver Thrombocytopenia Anemia Alcohol withdrawal COPD exacerbation Acute encephalopathy GI bleeding Acute blood loss anemia Acidosis, lactic Rhabdomyolysis Acute GI bleeding Back pain Liver cirrhosis Congestive heart failure Anemia Ascites Lumbar radiculopathy, chronic Hypothyroid Alcoholism COPD (chronic obstructive pulmonary disease) Surgical History S/P laminectomy with spinal fusion Family History Father CAD (coronary artery disease) Social History Smoking and tobacco/nicotine status: current every day tobacco/nicotine user Physical Exam Narrative: EXAM NARRATIVE: General: Patient is fairly somnolent, no acute distress. Skin: Warm, dry. Head: Normocephalic, atraumatic. Neck: Supple, trachea midline. Eye: Extraocular movements are intact. Ears, nose, mouth and throat: mucosa moist. Cardiovascular: Regular, Normal peripheral perfusion. Respiratory: Lungs are clear to auscultation, respirations are non-labored, breath sounds are equal, Symmetrical chest wall expansion. Gastrointestinal: Soft, Nontender, Non distended, Normal bowel sounds. Musculoskeletal: Normal ROM, no deformity. Neurological: Patient is somnolent and seems slightly confused but does answer some questions and follow some commands. No focal neurological deficit observed. Psychiatric: Unable to assess Course Vital Signs: Vital signs: Vital Signs Temperature 98.1 F 01/23/24 13:36 Pulse Rate 72 01/23/24 13:36 Respiratory Rate 18 01/23/24 13:36 Blood Pressure 103/64 01/23/24 13:36 Pulse Oximetry 96 01/23/24 13:36 Oxygen Delivery Me thod Room Air 01/23/24 13:36 MDM - Back Pain/Injury Medical Decision Making Medical decision making: Differential diagnosis including but not limited to and based on the above HPI, review of systems and physical exam: Concern for drug overdose, renal failure, hepatic encephalopathy, infection such as UTI. Orders placed to evaluate differential diagnosis based on the above differential, HPI and physical exam Lab Review: Laboratory results were reviewed and interpreted by myself the emergency room physician. Ammonia is up to 120. Otherwise lab work is fairly consistent with previous. His platelets are low at 126. BUN and creatinine are 18 and 1.2. I reviewed the patient's medical record. Reexamination: Patient remains fairly stable. No increased work of breathing. He still quite somnolent/encephalopathic. Consultation: I spoke with Dr. Meredith about the patient and he agrees to admission. Assessment and plan: Hepatic encephalopathy Cirrhosis -Fluid bolus and 30 mL of lactulose. -I discussed the patient with the hospitalist on-call who is admitting the patient. - Discussed findings and plan with patient. Answered any questions. - All laboratory values were reviewed and interpreted personally by myself, the ER physician - All imaging was reviewed and interpreted personally by myself, the ER physician. - Evaluation and treatment of this problem were appropriate in the emergency setting Labs 01/23/24 14:15 01/23/24 14:15 Laboratory Results WBC 6.43 10^3/uL (3.29-11.43) 01/23/24 14:15 RBC 3.76 10^6/uL (3.85-5.65) L 01/23/24 14:15 Hgb 10.50 g/dL (11.27-16.99) L 01/23/24 14:15 Hct 32.6 % (37-53) L 01/23/24 14:15 MCV 86.7 fl (82-101) 01/23/24 14:15 MCH 27.9 pg (27-33) 01/23/24 14:15 MCHC 32.2 g/dL (30-55) 01/23/24 14:15 RDW 18.4 % (12.1-15.1) H 01/23/24 14:15 Plt Count 126 10^3/cmm (157-399) L 01/23/24 14:15 MPV 11.1 fL (7.4-10.4) H 01/23/24 14:15 Neut % (Auto) 48.6 % 01/23/24 14:15 Lymph % (Auto) 35.9 % 01/23/24 14:15 [place] % (Auto) 7.3 % 01/23/24 14:15 Eos % (Auto) 7.0 % 01/23/24 14:15 Baso % (Auto) 0.9 % 01/23/24 14:15 Neut # (Auto) 3.12 10^3/uL (1.8-7.7) 01/23/24 14:15 Lymph # (Auto) 2.3 10^3/uL (0.8-4.8) 01/23/24 14:15 [place] # (Auto) 0.5 10^3/uL (0.2-0.9) 01/23/24 14:15 Eos # (Auto) 0.5 10^3/uL (0.0-0.8) 01/23/24 14:15 Baso # (Auto) 0.1 10^3/uL (0.0-0.1) 01/23/24 14:15 Nucleated RBC % (auto) 0 % 01/23/24 14:15 Nucleated RBCs # 0.0 /100WBC 01/23/24 14:15 Specimen Type Arterial 01/23/24 13:37 Sample Site Radial, right 01/23/24 13:37 ABG pH 7.44 (7.35-7.45) 01/23/24 13:37 ABG pCO2 40.0 mmHg (35-45) 01/23/24 13:37 ABG pO2 55.4 mmHg (80.0-100.0) L 01/23/24 13:37 ABG PO2/FiO2 Ratio 0 01/23/24 13:37 ABG HCO3 27.3 mmol/L (22-26) H 01/23/24 13:37 ABG O2 Saturation 89.3 01/23/24 13:37 ABG Base Excess 2.9 mmol/L (-2.0-2.0) H 01/23/24 13:37 Ward Test Pos 01/23/24 13:37 A-a O2 Gradient 5.8 mmHg (5-10) 01/23/24 13:37 Hematocrit 33.0 % (42-52) L 01/23/24 13:37 Hgb O2 Saturation 86.4 % (95-100) L 01/23/24 13:37 Carboxyhemoglobin 2.6 %THgb (0.4-20.1) 01/23/24 13:37 Methemoglobin 0.7 % (0.4-1.5) 01/23/24 13:37 Total Hemoglobin 10.8 g/dL (14-18) L 01/23/24 13:37 Sodium 134.0 mmol/L (131-143) 01/23/24 13:37 Potassium 3.5 mmol/L (3.5-5.0) 01/23/24 13:37 Glucose 124.0 mg/dL (70-115) H 01/23/24 13:37 Ionized Calcium 1.2 mmol/L (1.1-1.4) 01/23/24 13:37 O2 Delivery Device Room air 01/23/24 13:37 FiO2 21.0 % 01/23/24 13:37 Setter Cold Rolling Machine ID [place] 01/23/24 13:37 Sodium 131 mmol/L (136-145) L 01/23/24 14:15 Potassium 4.0 mmol/L (3.5-5.1) 01/23/24 14:15 Chloride 97 mmol/L (98-107) L 01/23/24 14:15 Carbon Dioxide 23 mmol/L (22-29) 01/23/24 14:15 Anion Gap 15.0 (5-19) 01/23/24 14:15 BUN 18 mg/dL (6-20) 01/23/24 14:15 Creatinine 1.2 mg/dL (0.7-1.2) 01/23/24 14:15 GFR Calculation 62.4 mL/min (90-130) L 01/23/24 14:15 Glucose 117 mg/dL (65-115) H 01/23/24 14:15 Calculated Osmolality 275 mOsm/kg (285-295) L 01/23/24 14:15 Lactic Acid 2.2 mmol/L (0.5-2.2) 01/23/24 14:15 Calcium 9.1 mg/dL (8.5-10.5) 01/23/24 14:15 Total Bilirubin 1.6 mg/dL (0.15-1.2) H 01/23/24 14:15 AST 52 U/L (0-40) H 01/23/24 14:15 ALT 23 U/L (0-41) 01/23/24 14:15 Alkaline Phosphatase 177 U/L (40-130) H 01/23/24 14:15 Ammonia 120 umol/L (16-60) H 01/23/24 14:15 Total Protein 8.7 g/dL (6.6-8.7) 01/23/24 14:15 Albumin 3.0 g/dL (3.5-5.2) L 01/23/24 14:15 Globulin 5.7 g/dL (1.3-4.6) H 01/23/24 14:15 Salicylates < 0.3 mg/dL (3-10) L 01/23/24 14:15 Acetaminophen < 5.0 ug/mL (10-30) L 01/23/24 14:15 Ethyl Alcohol < 10 mg/dL (0-10) 01/23/24 14:15 No radiology studies performed this visit Discharge Plan Discharge Patient Disposition: Admitted As Inpatient Clinical Impression: Hepatic encephalopathy, Alcoholic cirrhosis Condition: Stable Coding Level of Care Code ED Instructional Supervisor for Carlos Enrique Merritt
[2024-01-23 14:43] LABS: Lactic Sepsis W/Reflex 2.2 mmol/L (0.5-2.2)
[2024-01-23 14:44] LABS: Alanine Aminotransferase 23 U/L (0-41); Alkaline Phosphatase 177 U/L (40-130); Aspartate Amino Transferase 52 U/L (0-40); Blood Urea Nitrogen 18 mg/dL (6-20); Calcium 9.1 mg/dL (8.5-10.5); Carbon Dioxide 23 mmol/L (22-29); Chloride 97 mmol/L (98-107); Globulin 5.7 g/dL (1.3-4.6); Glomerular Filtration Rate 62.4 mL/min (90-130); Glucose 117 mg/dL (65-115); Osmolality Calculated 275 mOsm/kg (285-295); Sodium 131 mmol/L (136-145); Total Bilirubin 1.6 mg/dL (0.15-1.2); Total Protein 8.7 g/dL (6.6-8.7)
[2024-01-23 14:45] LABS: Ammonia 120 umol/L (16-60)
[2024-01-23 15:02] LABS: Acetaminophen < 5.0 ug/mL (10-30); Alcohol Level < 10 mg/dL (0-10); Salicylate < 0.3 mg/dL (3-10)
[2024-01-23] MEDS: sodium chloride 0.9% 1,000 ML 999 ML IV (15:10)
[2024-01-23 15:39] LABS: Amphetamines Screen Urine Negative (Negative); Barbiturates Screen Urine Negative (Negative); Benzodiazepines Screen Urine Negative (Negative); Cocaine Screen Urine Negative (Negative); Opiate Screen Urine Negative (Negative); PCP Screen Urine Negative (Negative); THC Screen Urine Negative (Negative)
[2024-01-23 15:47] LABS: Add Urine Culture? Yes; Bacteria Urine 2+ /hpf; Bilirubin Urine Neg (Negative); Blood Urine Neg (Negative); Glucose Urine UA Norm (Normal); Ketones Urine Negative (Negative); Leukocyte Esterase Urine 2+ (Negative); Nitrate Urine Negative (Negative); Protein Urine Neg (Negative); Squamous Epithelial Cell Urine RARE /hpf (0-5); Urine Appearance Hazy (CLEAR); Urine Color Yellow (Yellow); Urobilinogen Urine 1 mg/dL (Negative); WBC Urine >100 /hpf (0-5); pH Urine 6 (5-7)
[2024-01-23 16:07] LABS: Reflex Lactate Order REFLEX LACTIC ORDERD
--- NOTE | 2024-01-23 16:11 | P.HP_ITS ---
Providers/Chief Complaint 2 Primary Care Provider: Elizabeth Gagnon MD Chief Complaint: LETHARGY; BACK PAIN History of Present Illness Eliezer Reynolds is a 58 year old male with past medical history of liver cirrhosis, hepatic encephalopathy, noncompliance with lactulose who was last discharged from the hospital in December 06 [place] was brought into the ER today from home because of somnolence. As per the ER physician when physical therapist presented to his house today he was found to be extremely sleepy and somnolent hence EMS was called and he was present to the ER. On examination patient was awake, drowsy, not coherent, alert only to self. Patient received 1 dose of lactulose in the ER. Review of Systems 2 General: Reports: ROS unobtainable due to mental status Medications/Allergies Home Medications Medication Instructions Recorded Confirmed Last Taken Type levothyroxine 50 mcg tablet 50 mcg PO DAILY@11/18/21 01/23/24 11/18/23 History (Euthyrox) lidocaine 5 % topical patch See Rx Instructions .Route .COMPLEX 02/18/23 01/23/24 11/16/23 History potassium chloride 10 mEq 10 meq PO DAILY@09/11/23 01/23/24 11/18/23 History tablet,extended release folic acid 1 mg tablet 1 mg PO DAILY@10/20/23 01/23/24 11/18/23 History pantoprazole 40 mg tablet,delayed 40 mg PO DAILY@10/20/23 01/23/24 11/18/23 History release acetazolamide 250 mg tablet 250 mg PO DAILY@11/02/23 01/23/24 11/18/23 History duloxetine 30 mg capsule,delayed 30 mg PO DAILY@12/15/23 01/23/24 Unknown History release fluticasone furoate 100 1 inh inhalation DAILY@12/15/23 01/23/24 Unknown History mcg-vilanterol 25 mcg/dose inhalation powder (Breo Ellipta) furosemide 40 mg tablet 40 mg PO BID@,12/15/23 01/23/24 Unknown History rifaximin 550 mg tablet (Xifaxan) 550 mg PO BID@,12/15/23 01/23/24 Unknown History tramadol 50 mg tablet 50 mg PO TID@,,12/15/23 01/23/24 Unknown History trazodone 100 mg tablet 200 mg PO BEDTIME@20 12/15/23 01/23/24 Unknown History lactulose 10 gram/15 mL oral 30 ml PO TID 01/23/24 01/23/24 Unknown History solution spironolactone 50 mg tablet 50 mg PO BID 01/23/24 01/23/24 Unknown History Allergies Allergy/AdvReac Type Severity Reaction Status Date / Time azithromycin Allergy ALGY-Anaphy Verified 12/15/23 08:59 laxis Penicillins Allergy Unknown Verified 12/15/23 08:59 PFSH Acute 2 PFSH: Medical History Hepatic encephalopathy Obesity Diastolic CHF Shingles Alcoholism Alcoholic cirrhosis of liver Thrombocytopenia Anemia Alcohol withdrawal COPD exacerbation Acute encephalopathy GI bleeding Acute blood loss anemia Acidosis, lactic Rhabdomyolysis Acute GI bleeding Back pain Liver cirrhosis Congestive heart failure Anemia Ascites Lumbar radiculopathy, chronic Hypothyroid Alcoholism COPD (chronic obstructive pulmonary disease) Surgical History S/P laminectomy with spinal fusion Family History Father CAD (coronary artery disease) Social History Smoking and tobacco/nicotine status: current every day tobacco/nicotine user Vitals/I&O/Wt Last Vital Signs Temp 98.1 F 01/23/24 13:36 Pulse 72 01/23/24 13:36 Resp 18 01/23/24 13:36 BP 103/64 01/23/24 13:36 Pulse Ox 96 01/23/24 13:36 O2 Del Method Room Air 01/23/24 13:36 Weight last 48 hrs Weight 81.647 kg Physical Exam 2 Narrative: HEENT: PERRLA, pupils bilaterally equal and reactive Chest: Normal vesicular breath sounds, no added sounds, equal good air entry bilaterally CVS: S1-S2 regular, no murmurs, no tachycardia, no gallops, no rubs Abdomen: Soft, nontender, no organomegaly, bowel sounds present Neuro: No focal deficits, no facial deformity, moving all limbs Const: COMMON NORMALS: no acute distress and average body habitus; negative for patient oriented x3 EXAM LIMITATIONS: altered mental status G ENERAL APPEARANCE: cooperative, comfortable, disheveled and frail appearing O RIENTATION/CONSCIOUSNESS: Yes awake and Yes confused; not oriented to place and not oriented to time Data 01/23/24 14:15 01/23/24 14:15 A&P Assessment and plan (1) Hepatic encephalopathy: Ammonia level elevated to 120. History of noncompliance with lactulose in the past. Continue with home dose of rifaximin. Lactulose 30 mg every 6 hours. Change lactulose dose as per at least 2-3 soft bowel movements a day. Hold off diuretics. Gentle IV hydration with normal saline at 50 cc/h. Infectious cause less likely. Patient does not have any white count. UA results appreciated. Difficult to get history from patient as of now regarding dysuria. Empirically start on IV ceftriaxone. Follow-up urine culture. Check blood culture. Hold off on trazodone. Continue with home dose of duloxetine. (2) Alcoholic cirrhosis: Plan Full code Clear liquid diet Protonix for PUD prophylaxis Heparin 5000 every 12 hourly for DVT prophylaxis. Attestations 2 Medical Necessity Statement*: Admission for more than 2 midnights for management of hepatic encephalopathy in a patient with baseline liver cirrhosis, possible UTI Diagnoses Hepatic encephalopathy K76.82 Alcoholic cirrhosis K70.30
[2024-01-23] MEDS: lactulose oral liq 20 gm/30 mL UDC 30 GM PO (16:34)
[2024-01-23] MEDS: cefTRIAXone 1,000 MG in sodium chloride 0.9% (plus) 50 ML 100 MG IV (17:41)
[2024-01-23] MEDS: lactulose oral liq 20 gm/30 mL UDC PO ×2 (17:41→22:40)
[2024-01-23] MEDS: heparin 5,000 unit/mL INJ 1 mL 5000 UNIT SUBCUT (17:41)
[2024-01-23] MEDS: sodium chloride 0.9% 1,000 ML 50 ML IV (17:42)
[2024-01-23] MEDS: rifaximin 200 mg Tablet 400 MG PO (20:50)
[2024-01-24] VITALS: BP 116/74; PULSE 74; RESP 18; TEMP 36.4; O2SAT 91
[2024-01-24 04:00] VITALS: BP 124/75; PULSE 76; RESP 18; TEMP 36.6; O2SAT 94
[2024-01-24] MEDS: heparin 5,000 unit/mL INJ 1 mL 5000 UNIT SUBCUT (05:11)
[2024-01-24] MEDS: levothyroxine 50 mcg Tablet PO (05:11)
[2024-01-24] MEDS: pantoprazole DR 40 mg Tablet PO (05:11)
[2024-01-24] MEDS: lactulose oral liq 20 gm/30 mL UDC PO ×2 (05:11→12:49)
[2024-01-24 08:00] VITALS: BP 126/76; PULSE 74; RESP 16; TEMP 36.5; O2SAT 91
[2024-01-24 08:28] LABS: Basophils # 0.1 10^3/uL (0.0-0.1); Basophils % 1.5 %; Eosinophils # 0.5 10^3/uL (0.0-0.8); Eosinophils % 8.9 %; Hematocrit 33.4 % (37-53); Lymphocytes # 1.9 10^3/uL (0.8-4.8); Lymphocytes % 35.6 %; Mean Corpuscular Hemoglobin 28.2 pg (27-33); Mean Corpuscular Volume 88.1 fl (82-101); Mean Platelet Volume 10.4 fL (7.4-10.4); Monocytes # 0.4 10^3/uL (0.2-0.9); Monocytes % 7.8 %; Neutrophils # 2.47 10^3/uL (1.8-7.7); Nucleated Red Blood Cells % 0 %; Platelet Count 118 10^3/cmm (157-399); Red Blood Count 3.79 10^6/uL (3.85-5.65); White Blood Count 5.37 10^3/uL (3.29-11.43)
[2024-01-24] MEDS: duloxetine 30 mg Capsule PO (08:37)
[2024-01-24] MEDS: rifaximin 200 mg Tablet 400 MG PO (08:37)
[2024-01-24 08:52] VITALS: PULSE 76; O2SAT 93
[2024-01-24 08:57] LABS: Alanine Aminotransferase 20 U/L (0-41); Albumin Level 2.9 g/dL (3.5-5.2); Alkaline Phosphatase 163 U/L (40-130); Anion Gap 13.8 (5-19); Aspartate Amino Transferase 53 U/L (0-40); Blood Urea Nitrogen 18 mg/dL (6-20); Calcium 9.2 mg/dL (8.5-10.5); Carbon Dioxide 24 mmol/L (22-29); Chloride 103 mmol/L (98-107); Creatinine Clr Calc Pharmacy 76.6309; Globulin 5.6 g/dL (1.3-4.6); Glomerular Filtration Rate 62.4 mL/min (90-130); Glucose 133 mg/dL (65-115); Magnesium 1.8 mg/dL (1.7-2.3); Osmolality Calculated 288 mOsm/kg (285-295); Phosphorus 3.7 mg/dL (2.5-4.5); Potassium 3.8 mmol/L (3.5-5.1); Sodium 137 mmol/L (136-145); Total Bilirubin 1.8 mg/dL (0.15-1.2); Total Protein 8.5 g/dL (6.6-8.7)
[2024-01-24 09:02] LABS: Procalcitonin 0.18 ng/mL (0-0.5)
--- NOTE | 2024-01-24 09:56 | PC.CHAP ---
Pastoral Care Encounter/Spiritual Assessment Type of Contact [] Declined portfolio architect visit [] Patient/Family/Request visit [] Outpatient visit [] Follow-up visit [] Physician referral [] Code/Alert [x] Routine visit [] Staff referral [] Actively dying [] Patient sleeping [] Family support [] [] Out of room [] Palliative care [] [] Receiving care in room [] Pre-surgical visit [] Trauma [] Long length of stay [] ICU visit [] Other: Relational/Emotional Strength [] Patient feels connected with others/family/visitors/staff [] Distress [] Loneliness/isolation [] Abandonment Spirituality of Patient [x] Person of Syeda [] Attends Anabaptist of their Syeda [x] Believes in Prayer [] Reads Bible or Judaism materials [] There are Spiritual issues to be addressed Parasitologist Interventions [x] Prayer [] Active listening [] Non-anxious presence [] Spiritual/emotional support [] Crisis/trauma care [] Spiritual counseling [] Bereavement support [] Provided bereavement packet [] Provided Bible/devotional materials [] Provided toy/stuffed animal, coloring book to patient or family member [] Provided Communion [] Anointing/Greene [] Salvation [x] Completed spiritual assessment [] Other: Impact on Illness or Injury [] Angry [] Fearful [] Anxious [] Often cries [] Exhaustion [] Unable to work [] Unable to attend gnosticist [] Unable to walk/stand [] Unable to read [] Unable to drive [] Unable to eat/drink [] Unable to sleep [] Unable to be with family [] Patient intubated [x] Other: Summary Time spent with patient 5 min
[2024-01-24 11:52] VITALS: BP 145/72; PULSE 64; RESP 18; TEMP 36.4; O2SAT 93
--- NOTE | 2024-01-24 12:28 | P.DS_ITS ---
Discharge Providers Date of Admission: 01/23/24 15:19 Date of Discharge: January 24, 2024 Attending Provider at Admission: Rikki Meredith MD Attending Provider at Discharge: Dennise Rosado MD Primary Care Provider: Elizabeth Gagnon MD Diagnoses at Discharge Discharge Diagnosis (1) Hepatic encephalopathy: Status: Acute (2) Alcoholic cirrhosis: Status: Acute Reason for Visit Reason for Visit: LETHARGY; BACK PAIN Hospital Course Hospital Course Eliezer Reynolds is a 58 year old male with past medical history of liver cirrhosis, hepatic encephalopathy, noncompliance with lactulose. was brought into the ER today from home because of somnolence. PEr admission report to ER. when physical therapist presented to his house today he was found to be extremely sleepy and somnolent hence EMS was called and he was present to the ER. On admission examination patient was awake, drowsy, not coherent, alert only to self on 01/22. Ammonia level was elevated at 120. Patient received lactulose 30 mg every 6 hours. Patient was able to be awakened easily by 01/24/2024. At the time of my examination at 11 AM, patient is alert awake oriented. He is correctly able to tell me his name, age, date of . States he does not know why he is in the hospital but relates that he has been admitted here before with hepatic encephalopathy. He has had several bowel movements since admission. He is currently able to get out of bed to stand and use the bedside commode. He denies any abdominal pain nausea vomiting. States that he feels back to his baseline. He is being discharged today with home health. Recommended to continue using oral lactulose 20 mg 3 times a day to titrate to 2-3 bowel movements per day. Additionally to continue rifaximin. It appears that rifaximin 550 mg twice daily may be on a national shortage, therefore the prescription has been changed to rifaximin 400 mg oral twice daily. His urine culture showed greater than 10,000 CFU gram-negative rods, patient is being disc harged with an empiric course of ciprofloxacin, urine culture would need to be followed up postdischarge. Physical Exam Narrative: General: No acute distress, AO x3, unkempt HEENT: PERRLA, pupils bilaterally equal and reactive, pallors not present Chest: Normal vesicular breath sounds, no added sounds, equal good air entry bilaterally CVS: S1-S2 regular, no murmurs, no tachycardia, no gallops, no rubs Abdomen: Soft, nontender, no organomegaly, bowel sounds present Neuro: No focal deficits, no facial deformity, AO x3, power 5/5 in all limbs Discharge Data Studies Completed and Pending Pending at discharge Category Date Time Status Urine Culture Stat Lab 01/23/24 15:03 Results Laboratory Results WBC 5.37 10^3/uL (3.29-11.43) 01/24/24 08:11 RBC 3.79 10^6/uL (3.85-5.65) L 01/24/24 08:11 Hgb 10.70 g/dL (11.27-16.99) L 01/24/24 08:11 Hct 33.4 % (37-53) L 01/24/24 08:11 MCV 88.1 fl (82-101) 01/24/24 08:11 MCH 28.2 pg (27-33) 01/24/24 08:11 MCHC 32.0 g/dL (30-55) 01/24/24 08:11 RDW 19.0 % (12.1-15.1) H 01/24/24 08:11 Plt Count 118 10^3/cmm (157-399) L 01/24/24 08:11 MPV 10.4 fL (7.4-10.4) 01/24/24 08:11 Neut % (Auto) 46.0 % 01/24/24 08:11 Lymph % (Auto) 35.6 % 01/24/24 08:11 [place] % (Auto) 7.8 % 01/24/24 08:11 Eos % (Auto) 8.9 % 01/24/24 08:11 Baso % (Auto) 1.5 % 01/24/24 08:11 Neut # (Auto) 2.47 10^3/uL (1.8-7.7) 01/24/24 08:11 Lymph # (Auto) 1.9 10^3/uL (0.8-4.8) 01/24/24 08:11 [place] # (Auto) 0.4 10^3/uL (0.2-0.9) 01/24/24 08:11 Eos # (Auto) 0.5 10^3/uL (0.0-0.8) 01/24/24 08:11 Baso # (Auto) 0.1 10^3/uL (0.0-0.1) 01/24/24 08:11 Nucleated RBC % (auto) 0 % 01/24/24 08:11 Nucleated RBCs # 0.0 /100WBC 01/24/24 08:11 Specimen Type Arterial 01/23/24 13:37 Sample Site Radial, right 01/23/24 13:37 ABG pH 7.44 (7.35-7.45) 01/23/24 13:37 ABG pCO2 40.0 mmHg (35-45) 01/23/24 13:37 ABG pO2 55.4 mmHg (80.0-100.0) L 01/23/24 13:37 ABG PO2/FiO2 Ratio 0 01/23/24 13:37 ABG HCO3 27.3 mmol/L (22-26) H 01/23/24 13:37 ABG O2 Saturation 89.3 01/23/24 13:37 ABG Base Excess 2.9 mmol/L (-2.0-2.0) H 01/23/24 13:37 Ward Test Pos 01/23/24 13:37 A-a O2 Gradient 5.8 mmHg (5-10) 01/23/24 13:37 Hematocrit 33.0 % (42-52) L 01/23/24 13:37 Hgb O2 Saturation 86.4 % (95-100) L 01/23/24 13:37 Carboxyhemoglobin 2.6 %THgb (0.4-20.1) 01/23/24 13:37 Methemoglobin 0.7 % (0.4-1.5) 01/23/24 13:37 Total Hemoglobin 10.8 g/dL (14-18) L 01/23/24 13:37 Sodium 134.0 mmol/L (131-143) 01/23/24 13:37 Potassium 3.5 mmol/L (3.5-5.0) 01/23/24 13:37 Glucose 124.0 mg/dL (70-115) H 01/23/24 13:37 Ionized Calcium 1.2 mmol/L (1.1-1.4) 01/23/24 13:37 O2 Delivery Device Room air 01/23/24 13:37 FiO2 21.0 % 01/23/24 13:37 Manager Sterile Processing ID [place] 01/23/24 13:37 Sodium 137 mmol/L (136-145) 01/24/24 08:11 Potassium 3.8 mmol/L (3.5-5.1) 01/24/24 08:11 Chloride 103 mmol/L (98-107) 01/24/24 08:11 Carbon Dioxide 24 mmol/L (22-29) 01/24/24 08:11 Anion Gap 13.8 (5-19) 01/24/24 08:11 BUN 18 mg/dL (6-20) 01/24/24 08:11 Creatinine 1.2 mg/dL (0.7-1.2) 01/24/24 08:11 GFR Calculation 62.4 mL/min (90-130) L 01/24/24 08:11 Glucose 133 mg/dL (65-115) H 01/24/24 08:11 Calculated Osmolality 288 mOsm/kg (285-295) 01/24/24 08:11 Lactic Acid 2.2 mmol/L (0.5-2.2) 01/23/24 14:15 Lactic Acid (Sepsis) 2.0 mmol/L (0.5-2.2) 01/23/24 16:39 Calcium 9.2 mg/dL (8.5-10.5) 01/24/24 08:11 Phosphorus 3.7 mg/dL (2.5-4.5) 01/24/24 08:11 Magnesium 1.8 mg/dL (1.7-2.3) 01/24/24 08:11 Total Bilirubin 1.8 mg/dL (0.15-1.2) H 01/24/24 08:11 AST 53 U/L (0-40) H 01/24/24 08:11 ALT 20 U/L (0-41) 01/24/24 08:11 Alkaline Phosphatase 163 U/L (40-130) H 01/24/24 08:11 Ammonia 120 umol/L (16-60) H 01/23/24 14:15 Total Protein 8.5 g/dL (6.6-8.7) 01/24/24 08:11 Albumin 2.9 g/dL (3.5-5.2) L 01/24/24 08:11 Globulin 5.6 g/dL (1.3-4.6) H 01/24/24 08:11 Procalcitonin 0.18 ng/mL (0-0.5) 01/24/24 08:11 Urine Color Yellow (Yellow) 01/23/24 15:03 Urine Appearance Hazy (CLEAR) A 01/23/24 15:03 Urine pH 6 (5-7) 01/23/24 15:03 Ur Specific [place] 1.010 (1.005-1.030) 01/23/24 15:03 Urine Protein Neg (Negative) 01/23/24 15:03 Urine Glucose (UA) Norm (Normal) 01/23/24 15:03 Urine Ketones Negative (Negative) 01/23/24 15:03 Urine Blood Neg (Negative) 01/23/24 15:03 Urine Nitrate Negative (Negative) 01/23/24 15:03 Urine Bilirubin Neg (Negative) 01/23/24 15:03 Urine Urobilinogen 1 mg/dL (Negative) H 01/23/24 15:03 Ur Leukocyte Esterase 2+ (Negative) H 01/23/24 15:03 Urine RBC None /hpf (0-2) 01/23/24 15:03 Urine WBC >100 /hpf (0-5) H 01/23/24 15:03 Ur Squamous Epith Cells Rare /hpf (0-5) 01/23/24 15:03 Amorphous Sediment Not Reportable 01/23/24 15:03 Urine Bacteria 2+ /hpf (NONE) H 01/23/24 15:03 Salicylates < 0.3 mg/dL (3-10) L 01/23/24 14:15 Urine Opiates Screen Negative ng/mL (Negative) 01/23/24 15:03 Acetaminophen < 5.0 ug/mL (10-30) L 01/23/24 14:15 Ur Barbiturates Screen Negative ng/mL (Negative) 01/23/24 15:03 Ur Phencyclidine Scrn Negative ng/mL (Negative) 01/23/24 15:03 Ur Amphetamines Screen Negative ng/mL (Negative) 01/23/24 15:03 U Benzodiazepines Scrn Negative ng/mL (Negative) 01/23/24 15:03 Urine Cocaine Screen Negative ng/mL (Negative) 01/23/24 15:03 U Marijuana (THC) Screen Negative ng/mL (Negative) 01/23/24 15:03 Ethyl Alcohol < 10 mg/dL (0-10) 01/23/24 14:15 Vitals Last Vital Signs Temp 97.6 F 01/24/24 11:52 Pulse 64 01/24/24 11:52 Resp 18 01/24/24 11:52 BP 145/72 01/24/24 11:52 Pulse Ox 93 01/24/24 11:52 O2 Del Method Room Air 01/24/24 11:52 Discharge Plan Discharge Patient Disposition: Home Health Service Condition: Stable Prescriptions: New ciprofloxacin HCl [Cipro] 500 mg tablet 500 mg PO BID 7 Days Qty: 14 0RF Continued acetazolamide 250 mg tablet 250 mg PO DAILY@08 levothyroxine [Euthyrox] 50 mcg tablet 50 mcg PO DAILY@05 potassium chloride 10 mEq tablet extended release 10 meq PO DAILY@08 furosemide 40 mg Tablet 40 mg PO BID@08,20 tramadol 50 mg tablet 50 mg PO TID@08,14,20 duloxetine 30 mg capsule,delayed release(DR/EC) 30 mg PO DAILY@08 Xifaxan 550 mg tablet 550 mg PO BID@08,20 fluticasone furoate-vilanterol [Breo Ellipta] 100-25 mcg/dose blister with device 1 inh inhalation DAILY@08 spironolactone 50 mg tablet 50 mg PO BID lactulose 10 gram/15 mL solution 30 ml PO TID lidocaine 5 % adhesive patch,medicated See Rx Instructions .ROUTE .COMPLEX Rx Instructions: apply one patch transdermally as directed ON FOR 12H OFF FOR 12 HR as needed pantoprazole 40 mg tablet,delayed release (DR/EC) 40 mg PO DAILY@06 folic acid 1 mg tablet 1 mg PO DAILY@08 Held trazodone 100 mg tablet 200 mg PO BEDTIME@20 Hold Instructions: Resume on 01/31/24. Discharge Orders: Discharge Order (Routine); Ordered 01/24/24 Ordered By: Dennise Rosado Referrals: Elizabeth Gagnon MD [Primary Care Provider] - Patient Instructions: Opioid Safety Discharge Attestations Time Spent in Discharge Care*: greater than 30 min Status at Discharge: Behavioral status at discharge: cooperative , Quality Metrics Clinical Quality Measures [ No reported AMI, CVA or VTE this stay] Coding Level of Care Code Acute Code for Chg Fwd Diagnoses Hepatic encephalopathy K76.82 Alcoholic cirrhosis K70.30
[2024-01-24 14:33] VITALS: BP 145/72; PULSE 64; RESP 18; TEMP 36.4; O2SAT 93
== END 2024-01-24 14:25 | disposition home health service (06) | DRG 443 ==
LOC: ER 15:18 → MEDSURG 16:25
PROVIDERS: Admitting Provider Student in an Organized Health Care Education/Training Program; Emergency Provider Emergency Medicine; PCP Family Medicine; Visit Provider Student in an Organized Health Care Education/Training Program
DX: K76.82 Hepatic encephalopathy (principal); K70.30 Alcoholic cirrhosis of liver without ascites; F10.20 Alcohol dependence, uncomplicated; D64.9 Anemia, unspecified; M54.9 Dorsalgia, unspecified; G89.29 Other chronic pain; J44.9 Chronic obstructive pulmonary disease, unspecified; E03.9 Hypothyroidism, unspecified; Z98.1 Arthrodesis status; Z91.148 Patient's other noncompliance with medication regimen for other reason
CPT/HCPCS: 36415; 36600; 80051; 80053; 80306; 80307; 81001; 82140; 82330; 82805; 83605; 83735; 84100; 84145; 85025; 87077; 87086; 87186; 93005; 94664; 96372; 99285; J0696; J1644; J7030

== ENCOUNTER 2024-06-12 08:21 | Inpatient (IN) | payer MEDICARE, MEDICAID, SELFPAY ==
[2024-06-12] VITALS (84 sets, daily range): BP systolic 94–158; BP diastolic 48–73; PULSE 71–93; RESP 10–24; TEMP 37; O2SAT 95–100; BMI 30.4
--- NOTE | 2024-06-12 08:26 | ECG_ITS ---
[facility] Test Date: 2024-06-12 Pat Name: Eliezer Reynolds Department: Room: Gender: Male Tyre Retreader: : 1965 Requested By: Kory Loco Order Number: [id number] Chelsey MD: Missy Beck M.D. Measurements Intervals [place] Rate: 80 P: 75 OK: 168 QRS: -76 QRSD: 127 T: 75 QT: 309 QTc: 358 Interpretive Statements SINUS RHYTHM LEFT ANTERIOR FASCICULAR BLOCK [QRS AXIS <= -45, QR IN I, RS IN II] Compared to ECG 01/23/2024 13:42:13 Left anterior fascicular block now present Intraventricular conduction delay no longer present Electronically Signed On 06-13-2024 01:20:18 CDT by Missy Beck M.D. [id number]
--- NOTE | 2024-06-12 08:27 | XR_ITS ---
WS: [id number] PORTABLE CHEST HISTORY: dyspnea/cough COMPARISON: 12/15/2023, 11/18/2023 RIGHT upper lobe interstitial thickening and increasing opacification. There is also increasing densi ty in the RIGHT suprahilar and paratracheal soft tissue. Fullness at the RIGHT hilum. Otherwise the lungs are clear. No pleural effusion or pneumothorax. Cardiac size: Normal. Mediastinum/Aorta: RIGHT paratracheal and RIGHT suprahilar fullness needs to be further evaluated. Pr ominent pulmonary arteries. No osseous abnormality seen. XR/XR chest 1V portable [id number] IMPRESSION: 1. Interstitial asymmetry in the RIGHT upper lobe with fullness in the RIGHT s uprahilar and RIGHT paratracheal region. Recommend follow-up chest CT with IV c ontrast. Neoplasm and adenopathy need to be excluded. Pneumonia/pneumonitis als o within the differential. 2. Suspect pulmonary hypertension. Pulmonary arteries are prominent.
--- NOTE | 2024-06-12 08:31 | ED_ITS ---
HPI - Weakness 2 General: Chief complaint: Weakness Stated complaint: WEAKNESS Time Seen by Provider: 06/12/24 08:26 History of Present Illness: 59-year-old male presents emergency room with complaints of generalized weakness. He states he fell about 2 weeks ago and since that time he said discomfort on his chest anteriorly pain is reproducible with palpation. He has chronic diarrhea. He has alcoholic liver cirrhosis stopped drinking approximately 4 years ago he is on lactulose 3 times daily which accounts for his diarrhea. He has not had any change recently. He denies any hematemesis or coffee-ground emesis. He does have a small amount of blood on the toilet paper after he wipes when he has a bowel movement at times. Associated symptoms: Denies chest pain, chills, dysuria or fever(s) Review of Systems 2 Const: Reports: fatigue and malaise; Denies: fever(s) or chills Card: Denies: chest pain Resp: Denies: dyspnea GI: Denies: abdominal pain : Denies: dysuria, urinary frequency or urinary urgency Musc: Denies: neck pain or back pain Skin/Breast: Denies: rash PFSH ED 2 PFSH: Medical History (Updated 06/13/24 @ 07:14 by Kory Hodgson DO) Acute encephalopathy Hepatic encephalopathy Obesity Diastolic CHF Shingles Alcoholism Alcoholic cirrhosis of liver Thrombocytopenia Anemia Alcohol withdrawal COPD exacerbation GI bleeding Acute blood loss anemia Acidosis, lactic Rhabdomyolysis Acute GI bleeding Back pain Liver cirrhosis Congestive heart failure Anemia Ascites Lumbar radiculopathy, chronic Hypothyroid Alcoholism COPD (chronic obstructive pulmonary disease) Surgical History S/P laminectomy with spinal fusion Family History Father CAD (coronary artery disease) Social History Smoking and tobacco/nicotine status: current every day tobacco/nicotine user Physical Exam 2 Const: COMMON NORMALS: no acute distress GENERAL APPEARANCE: cooperative, comfortable and lethargic ORIENTATION/CONSCIOUSNESS: Yes awake and Yes lethargic HENMT: COMMON NORMALS: normocephalic, atraumatic and hearing grossly normal bilaterally HEAD & SCALP: normocephalic and atraumatic Resp: COMMON NORMALS: normal respiratory effort, No retractions, No use of accessory muscles and clear to auscultation bilaterally AUSCULTATION: clear to auscultation bilaterally Cardio: COMMON NORMALS: regular rate, regular rhythm and No murmurs present (Cardio) RATE: regular rate RHYTHM: regular rhythm GI: COMMON NORMALS: Soft to palpation INSPECTION: Yes abdominal distension AUSCULTATION: Yes normoactive bowel sounds PALPATION: Yes Soft to palpation, No Tenderness to palpation present (GI) and No Guarding due to palpation present (GI) Extremity: COMMON NORMALS: normal to inspection, capillary refill normal, no clubbing, cyanosis or edema, no calf tenderness and no pedal edema Neuro: SENSORIUM/ORIENTATION: Yes lethargic OTHER: No focal neurologic deficits noted. Skin: COMMON NORMALS: no rashes or lesions noted GENERAL SKIN EXAM: no rashes or lesions noted Procedures Central Line Placement Right IJ: Patient Placed on Monitor/Pulse Ox: Yes MD Prep: mask, gown and gloves Central Line Prep: Chlorhexidine scrub Local Anesthetic: lidocaine 1% Ultrasound Used for Placement: Yes Central Line Lumen Inserted: triple Post Procedure: sutured in place, good blood return, all ports aspirated, flushed, capped and sterile dressing applied Post Procedure X-Ray: tip of catheter in good position Patient Tolerated Procedure: well Complications: none Course 2 Vital Signs: Vital signs: Vital Signs Temperature 97.7 F 06/13/24 00:00 Pulse Rate 81 06/13/24 06:00 Respiratory Rate 11 L 06/13/24 06:00 Blood Pressure 107/63 06/13/24 06:00 Pulse Oximetry 97 06/13/24 06:00 Oxygen Delivery Me thod Room Air 06/13/24 06:00 MDM - Weakness Medical Decision Making Central line noted to be in good position on product development ecologist film for CTA chest. Patient is hypokalemic hyponatremic has history of cirrhosis CTA shows lung mass concerning for malignancy as well as lymphadenopathy no pneumonia. Will admit for hyponatremia hypokalemia hypomagnesemia. Cover with prophylactic antibiotics. Lactic acid was 1.3. Initial ammonia level 75. patient has been given fluids he was mildly hypotensive blood pressure did improve with this. Discussed with hospitalist orders written Medical Records I reviewed the patient's medical records. Lab Data I reviewed the patient's lab results. 06/13/24 04:37 06/13/24 04:37 Radiology Impressions Chest X-Ray 06/12/24 08:27 IMPRESSION: 1. Interstitial asymmetry in the RIGHT upper lobe with fullness in the RIGHT suprahilar and RIGHT paratracheal region. Recommend follow-up chest CT with IV contrast. Neoplasm and adenopathy need to be excluded. Pneumonia/pneumonitis also within the differential. 2. Suspect pulmonary hypertension. Pulmonary arteries are prominent. Chest CTA 06/12/24 08:59 IMPRESSION: 1. 3 cm right suprahilar mass concerning for malignancy. 2. Right hilar, pericardial, and mediastinal adenopathy concerning for metastatic adenopathy. 3. Multiple pulmonary micro nodules noted in the right lung apex. This could reflect lymphangitic carcinomatosis or a superimposed small airway infectious/inflammatory process. 4. Incidental note of gallbladder wall thickening cholelithiasis. Perihepatic fluid also noted. This could be reactive to fluid or reflect cholecystitis. 5. Splenomegaly. Head CT 06/12/24 17:17 IMPRESSION: 1. No acute intracranial abnormality. 2. Chronic superficial ulcer/wound of the left temporal scalp consider outpatient dermatologic evaluation to exclude a dermal neoplasm. Abdomen Ultrasound 06/12/24 17:22 IMPRESSION: 1. Cholelithiasis with nonspecific gallbladder wall thickening in the setting of cirrhosis. Consider correlation with biliary labs and nuclear medicine hepatobiliary scan. 2. Cirrhosis with small ascites. Flow is not appreciable within the main portal vein, which may be due to slow/static flow versus thrombosis. Consider follow-up dedicated CT of the abdomen with contrast when clinically appropriate. Laboratory Results WBC 9.67 10^3/uL (3.29-11.43) 06/12/24 08:50 RBC 3.43 10^6/uL (3.85-5.65) L 06/12/24 08:50 Hgb 7.80 g/dL (11.27-16.99) L 06/12/24 08:50 Hct 27.0 % (37-53) L 06/12/24 08:50 MCV 78.7 fl (82-101) L 06/12/24 08:50 MCH 22.7 pg (27-33) L 06/12/24 08:50 MCHC 28.9 g/dL (30-55) L 06/12/24 08:50 RDW 22.4 % (12.1-15.1) H 06/12/24 08:50 Plt Count 143 10^3/cmm (157-399) L 06/12/24 08:50 MPV 11.2 fL (7.4-10.4) H 06/12/24 08:50 Neut % (Auto) 71.9 % 06/12/24 08:50 Lymph % (Auto) 17.8 % 06/12/24 08:50 [place] % (Auto) 5.8 % 06/12/24 08:50 Eos % (Auto) 3.6 % 06/12/24 08:50 Baso % (Auto) 0.5 % 06/12/24 08:50 Neut # (Auto) 6.95 10^3/uL (1.8-7.7) 06/12/24 08:50 Lymph # (Auto) 1.7 10^3/uL (0.8-4.8) 06/12/24 08:50 [place] # (Auto) 0.6 10^3/uL (0.2-0.9) 06/12/24 08:50 Eos # (Auto) 0.4 10^3/uL (0.0-0.8) 06/12/24 08:50 Baso # (Auto) 0.1 10^3/uL (0.0-0.1) 06/12/24 08:50 Nucleated RBC % (auto) 0 % 06/12/24 08:50 Nucleated RBCs # 0.0 /100WBC 06/12/24 08:50 PT 19.50 SECONDS (12.1-14.9) H 06/12/24 08:50 INR 1.59 (0.8-1.2) H 06/12/24 08:50 Sodium 122 mmol/L (136-145) L 06/12/24 16:38 Potassium 2.8 mmol/L (3.5-5.1) L* 06/12/24 16:38 Chloride 97 mmol/L (98-107) L 06/12/24 16:38 Carbon Dioxide 17 mmol/L (22-29) L 06/12/24 16:38 Anion Gap 10.8 (5-19) 06/12/24 16:38 BUN 24 mg/dL (6-20) H 06/12/24 16:38 Creatinine 1.4 mg/dL (0.7-1.2) H 06/12/24 16:38 GFR Calculation 52.1 mL/min (90-130) L 06/12/24 16:38 Glucose 125 mg/dL (65-115) H 06/12/24 16:38 Estimat Average Glucose 120 06/12/24 08:50 Hemoglobin A1c 5.8 % (4.0-6.0) 06/12/24 08:50 Calculated Osmolality 260 mOsm/kg (285-295) L 06/12/24 16:38 Lactic Acid 1.3 mmol/L (0.5-2.2) 06/12/24 17:18 Calcium 7.8 mg/dL (8.5-10.5) L 06/12/24 16:38 Magnesium 1.6 mg/dL (1.7-2.3) L 06/12/24 16:38 Iron 27 ug/dL (59-158) L 06/12/24 08:50 TIBC 261 mcg/dl 06/12/24 08:50 % Saturation 10.3 % (20-50) L 06/12/24 08:50 Unsat Iron Binding 234 ug/dL (112-347) 06/12/24 08:50 Ferritin 303 ng/mL (30-400) 06/12/24 08:50 Total Bilirubin 1.9 mg/dL (0.15-1.2) H 06/12/24 08:50 AST 72 U/L (0-40) H 06/12/24 08:50 ALT 22 U/L (0-41) 06/12/24 08:50 Alkaline Phosphatase 366 U/L (40-130) H 06/12/24 08:50 Ammonia 75 umol/L (16-60) H 06/12/24 08:50 Troponin T Baseline 12 ng/L (0-15) 06/12/24 08:50 Troponin T 120 Minute 6.79 ng/L (0-15) 06/12/24 11:10 Delta Troponin T -5.21 ABS# (0-10) L 06/12/24 11:10 Troponin T Hi Sens 6Hr 12.49 ng/L (0-15) 06/12/24 14:43 Troponin T Hi Sens 6Hr Delta 0.49 ng/L (0-12) 06/12/24 14:43 NT-Pro-B Natriuret Pep 40 pg/mL (0-125) 06/12/24 08:50 Total Protein 8.5 g/dL (6.6-8.7) 06/12/24 08:50 Albumin 2.5 g/dL (3.5-5.2) L 06/12/24 08:50 Globulin 6.0 g/dL (1.3-4.6) H 06/12/24 08:50 Triglycerides 77 mg/dL (0-150) 06/12/24 14:43 Cholesterol 137 mg/dL (0-200) 06/12/24 14:43 LDL Cholesterol, Calc 82 mg/dL (50-129) 06/12/24 14:43 HDL Cholesterol 40 mg/dL (60-100) L 06/12/24 14:43 LDL/HDL Ratio 2.05 RATIO (0.00-3.22) 06/12/24 14:43 Cholesterol/HDL Ratio 3.43 mg/dL (1.0-5.00) 06/12/24 14:43 Procalcitonin 9.19 ng/mL (0-0.5) H 06/12/24 08:50 TSH 3.31 uIU/mL (0.27-4.20) 06/12/24 14:43 Ethyl Alcohol < 10 mg/dL (0-10) 06/12/24 08:50 Blood Type O Negative 06/12/24 11:10 Rho(D) Type Rh negative 06/12/24 11:10 Antibody Screen Negative 06/12/24 11:10 All radiology interpretation(s) finalized by discharge Critical Care Time 2 Critical Care Time: Critical Care Time: Yes Total Critical Care Time: 40 Attestation: The high probability of a clinically significant, sudden or life threatening deterioration of the patient's cardiovascular respiratory renal system(s) required my full and direct attention, intervention and personal management. The critical care time is as shown. This time is in addition to time spent performing any reported procedures but includes the following: [x] Data and vital sign review and interpretation [x] Patient assessment, examination and intervention [x] Documentation [x] Medication orders and management Discharge Plan Discharge Patient Disposition: Admitted As Inpatient Admit Provider: Nahid Georges Clinical Impression: Acute encephalopathy, Acute hyponatremia, Alcoholic cirrhosis, Acute on chronic anemia, Hypomagnesemia, Cholelithiasis Condition: Stable Coding Level of Care Code ED Practice Consultant for Chg Fwd Related Data Home Medications Medication Instructions Recorded Confirmed potassium chloride 10 mEq 10 meq PO DAILY@09/11/23 06/12/24 tablet,extended release pantoprazole 40 mg tablet,delayed 40 mg PO DAILY@10/20/23 06/12/24 release acetazolamide 250 mg tablet 250 mg PO DAILY@11/02/23 06/12/24 duloxetine 30 mg capsule,delayed 30 mg PO DAILY@12/15/23 06/12/24 release furosemide 40 mg tablet 40 mg PO BID@08,12/15/23 06/12/24 rifaximin 550 mg tablet (Xifaxan) 550 mg PO BID@08,12/15/23 06/12/24 tramadol 50 mg tablet 50 mg PO TID@08,,12/15/23 06/12/24 lactulose 10 gram/15 mL oral 30 ml PO TID 01/23/24 06/12/24 solution spironolactone 100 mg tablet 100 mg PO DAILY 06/12/24 06/12/24 Allergies Allergy/AdvReac Type Severity Reaction Status Date / Time azithromycin Allergy ALGY-Anaphy Verified 12/15/23 08:59 laxis Penicillins Allergy Unknown Verified 12/15/23 08:59
--- NOTE | 2024-06-12 08:59 | CTR_ITS ---
PROCEDURE INFORMATION: Exam: CTA Chest With Contrast Exam date and time: 06/12/2024 3:07 PM Age: 59 years old Clinical indication: Other: Dyspnea; Additional info: Dyspnea weakness abnormal chest x-ray TECHNIQUE: Imaging protocol: Computed tomographic angiography of the chest with contrast. Exam focused on the arteries. 3D rendering (Not supervised by radiologist): MIP and/or 3D reconstructed images were created by the technologist. Radiation optimization: All CT scans at this facility use at least one of these dose optimization techniques: automated exposure control; mA and/or kV adjustment per patient size (includes targeted exams where dose is matched to clinical indication); or iterative reconstruction. Contrast material: OMNI 350; Contrast volume: 50 ml; Contrast route: INTRAVENOUS (IV); COMPARISON: CT angio chest PE protcl [id number] 11/17/2021 7:01 PM RADIATION DOSE METRICS: Total DLP (mGy-cm): 484 FINDINGS: Pulmonary arteries: Normal. No pulmonary emboli. Aorta: Unremarkable. No aortic aneurysm. No aortic dissection. Veins: Prominent upper abdominal varices. Lungs: Right suprahilar mass measuring 3.1 x 2.2 cm. Multiple pulmonary micro nodules noted in the right lung apex. Pleural spaces: Unremarkable. No pneumothorax. No pleural effusion. Heart: Unremarkable. No cardiomegaly. No pericardial effusion. Lymph nodes: Right hilar, pericardial, and mediastinal adenopathy. Gallbladder and biliary ducts: Gallbladder wall thickening with cholelithiasis. Spleen: Splenomegaly measuring 14 cm in length. Bones/joints: Unremarkable. No acute fracture. Soft tissues: Unremarkable. CT/CT angio chest PE protcl [id number] IMPRESSION: 1. 3 cm right suprahilar mass concerning for malignancy. 2. Right hilar, pericardial, and mediastinal adenopathy concerning for metastatic adenopathy. 3. Multiple pulmonary micro nodules noted in the right lung apex. This could reflect lymphangitic carcinomatosis or a superimposed small airway infectious/inflammatory process. 4. Incidental note of gallbladder wall thickening cholelithiasis. Perihepatic fluid also noted. This could be reactive to fluid or reflect cholecystitis. 5. Splenomegaly.
[2024-06-12 09:17] LABS: Basophils # 0.1 10^3/uL (0.0-0.1); Basophils % 0.5 %; Eosinophils # 0.4 10^3/uL (0.0-0.8); Eosinophils % 3.6 %; Lymphocytes # 1.7 10^3/uL (0.8-4.8); Lymphocytes % 17.8 %; Mean Corpuscular HGB Conc 28.9 g/dL (30-55); Mean Corpuscular Hemoglobin 22.7 pg (27-33); Mean Corpuscular Volume 78.7 fl (82-101); Mean Platelet Volume 11.2 fL (7.4-10.4); Monocytes # 0.6 10^3/uL (0.2-0.9); Monocytes % 5.8 %; Neutrophils # 6.95 10^3/uL (1.8-7.7); Neutrophils % 71.9 %; Nucleated Red Blood Cells % 0 %; Platelet Count 143 10^3/cmm (157-399); Red Blood Count 3.43 10^6/uL (3.85-5.65); Red Cell Distribution Width 22.4 % (12.1-15.1); White Blood Count 9.67 10^3/uL (3.29-11.43)
[2024-06-12 09:22] LABS: INR 1.59 (0.8-1.2)
[2024-06-12 09:27] LABS: Alanine Aminotransferase 22 U/L (0-41); Albumin Level 2.5 g/dL (3.5-5.2); Alkaline Phosphatase 366 U/L (40-130); Aspartate Amino Transferase 72 U/L (0-40); Blood Urea Nitrogen 22 mg/dL (6-20); Calcium 7.7 mg/dL (8.5-10.5); Carbon Dioxide 16 mmol/L (22-29); Chloride 97 mmol/L (98-107); Creatinine Clr Calc Pharmacy 55.0419; Glomerular Filtration Rate 44.6 mL/min (90-130); Glucose 161 mg/dL (65-115); Osmolality Calculated 263 mOsm/kg (285-295); Sodium 123 mmol/L (136-145); Total Bilirubin 1.9 mg/dL (0.15-1.2); Total Protein 8.5 g/dL (6.6-8.7)
[2024-06-12 09:28] LABS: Alcohol Level < 10 mg/dL (0-10)
[2024-06-12 09:29] LABS: Anion Gap 12.9 (5-19); Potassium 2.9 mmol/L (3.5-5.1)
[2024-06-12 09:33] LABS: Ammonia 75 umol/L (16-60)
[2024-06-12 10:11] LABS: Slide Review Slide Review Perform
[2024-06-12 10:44] LABS: Troponin(5th) Baseline 12 ng/L (0-15)
--- NOTE | 2024-06-12 10:55 | PC.NURSE ---
3 attempts at ultrasound IV by 2 ER nurse. ICU notified to attempt.
[2024-06-12 11:35] LABS: Troponin 5 2HR 6.79 ng/L (0-15)
[2024-06-12 11:44] LABS: Troponin 5 2HR Delta -5.21 ABS# (0-10)
--- NOTE | 2024-06-12 12:17 | ECG_ITS ---
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 Measurements Intervals [place] Rate: 84 P: 77 MA: 164 QRS: -81 QRSD: 119 T: 42 QT: 416 QTc: 493 Interpretive Statements SINUS RHYTHM PATTERN CONSISTENT WITH PULMONARY DISEASE LEFT ANTERIOR FASCICULAR BLOCK [QRS AXIS <= -45, QR IN I, RS IN II] Compared to ECG 06/12/2024 08:26:22 No significant changes Electronically Signed On 06-13-2024 01:32:25 CDT by Missy Beck M.D. [id number]
[2024-06-12] MEDS: lactated ringers 1,000 ML 999 ML IV (13:14)
[2024-06-12 15:12] LABS: Troponin 5 6HR 12.49 ng/L (0-15); Troponin 5 6HR Delta 0.49 ng/L (0-12)
[2024-06-12] MEDS: iohexol 350 mg/mL 500 mL Btl (per mL) IV (15:16)
--- NOTE | 2024-06-12 16:25 | ECG_ITS ---
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 Measurements Intervals [place] Rate: 83 P: 79 WI: 168 QRS: -77 QRSD: 121 T: 76 QT: 292 QTc: 345 Interpretive Statements SINUS RHYTHM LEFT ANTERIOR FASCICULAR BLOCK [QRS AXIS <= -45, QR IN I, RS IN II] NONSPECIFIC T-WAVE ABNORMALITY Compared to ECG 06/12/2024 12:58:20 T-wave abnormality now present Electronically Signed On 06-13-2024 01:36:39 CDT by Missy Beck M.D. [id number]
[2024-06-12 17:07] LABS: Anion Gap 10.8 (5-19); Blood Urea Nitrogen 24 mg/dL (6-20); Calcium 7.8 mg/dL (8.5-10.5); Carbon Dioxide 17 mmol/L (22-29); Chloride 97 mmol/L (98-107); Creatinine Clr Calc Pharmacy 62.9051; Glomerular Filtration Rate 52.1 mL/min (90-130); Glucose 125 mg/dL (65-115); Magnesium 1.6 mg/dL (1.7-2.3); Osmolality Calculated 260 mOsm/kg (285-295); Sodium 122 mmol/L (136-145)
--- NOTE | 2024-06-12 17:14 | P.HP_ITS ---
Providers/Chief Complaint 2 Primary Care Provider: Elizabeth Gagnon MD Chief Complaint: WEAKNESS History of Present Illness Eliezer Reynolds is a 59 year old male with a past medical history of hepatic encephalopathy, history of alcoholic liver cirrhosis, chronic hyponatremia, who presents [facility] due to altered mental status. Currently patient is alert to person, not to place, not to time he does not know where he is he does not know what country he is in, or does he remember his address or his birthdate. When asked him why he is here in the hospital, he tells me that he was sent here for an infusion, not of blood another infusion? No facial droop, no slurring of his words, he is moving bilateral upper lower extremities, had a central line placed into the right IJ for poor peripheral access. 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 with bilateral upper extremities, good strength bilaterally, moved able to move bilateral legs, when asked him if there is anything bothering him, he tells me he hurts all over, he reports feeling fatigue, malaise, has complaints of abdominal pain, Review of Systems 2 Const: Reports: fever(s), fatigue and malaise Card: Denies: chest pain Resp: Reports: dyspnea GI: Reports: abdominal pain : Denies: flank pain Medications/Allergies Home Medications Medication Instructions Recorded Confirmed Last Taken Type potassium chloride 10 mEq 10 meq PO DAILY@09/11/23 06/12/24 11/18/23 History tablet,extended release pantoprazole 40 mg tablet,delayed 40 mg PO DAILY@10/20/23 06/12/24 11/18/23 History release acetazolamide 250 mg tablet 250 mg PO DAILY@11/02/23 06/12/24 11/18/23 History duloxetine 30 mg capsule,delayed 30 mg PO DAILY@12/15/23 06/12/24 Unknown History release furosemide 40 mg tablet 40 mg PO BID@12/15/23 06/12/24 Unknown History rifaximin 550 mg tablet (Xifaxan) 550 mg PO BID@12/15/23 06/12/24 Unknown History tramadol 50 mg tablet 50 mg PO TID@,,12/15/23 06/12/24 Unknown History lactulose 10 gram/15 mL oral 30 ml PO TID 01/23/24 06/12/24 Unknown History solution spironolactone 100 mg tablet 100 mg PO DAILY 06/12/24 06/12/24 Unknown History Allergies Allergy/AdvReac Type Severity Reaction Status Date / Time azithromycin Allergy ALGY-Anaphy Verified 12/15/23 08:59 laxis Penicillins Allergy Unknown Verified 12/15/23 08:59 PFSH Acute 2 PFSH: Medical History (Updated 06/12/24 @ 17:23 by Nahid Georges MD) Acute encephalopathy Hepatic encephalopathy Obesity Diastolic CHF Shingles Alcoholism Alcoholic cirrhosis of liver Thrombocytopenia Anemia Alcohol withdrawal COPD exacerbation GI bleeding Acute blood loss anemia Acidosis, lactic Rhabdomyolysis Acute GI bleeding Back pain Liver cirrhosis Congestive heart failure Anemia Ascites Lumbar radiculopathy, chronic Hypothyroid Alcoholism COPD (chronic obstructive pulmonary disease) Surgical History S/P laminectomy with spinal fusion Family History Father CAD (coronary artery disease) Social History Smoking and tobacco/nicotine status: current every day tobacco/nicotine user Vitals/I&O/Wt Last Vital Signs Temp 98.6 F 06/12/24 08:24 Pulse 80 06/12/24 15:30 Resp 12 06/12/24 15:30 BP 133/57 06/12/24 15:30 Pulse Ox 99 06/12/24 15:30 O2 Del Method Room Air 06/12/24 11:30 06/12/24 06/12/24 06/12/24 06:59 14:59 22:59 Intake Total 1000 / 1000 Balance 1000 / 1000 Weight last 48 hrs Weight 90.718 kg Physical Exam 2 Const: COMMON NORMALS: no acute distress ORIENTATION/CONSCIOUSNESS: Yes awake, Yes oriented to person and Yes oriented to place Eye: COMMON NORMALS: Equal, round and reactive pupils present Resp: COMMON NORMALS: normal respiratory effort, No retractions, No use of accessory muscles and clear to auscultation bilaterally AUSCULTATION: clear to auscultation bilaterally Cardio: COMMON NORMALS: no JVD, regular rate, regular rhythm, S1 normal heart sound present and S2 normal heart sound present RATE: regular rate RHYTHM: regular rhythm HEART SOUNDS: S1 normal heart sound present and S2 normal heart sound present GI: COMMON NORMALS: Normal to inspection, nondistended, normoactive bowel sounds present, Soft to palpation and non-tender Extremity: COMMON NORMALS: no pedal edema Neuro: COMMON NORMALS: moves all extremities OTHER: doesnot follow neurological testing, no facial droop, no slurring of his words Data 06/12/24 08:50 06/12/24 08:50 A&P Assessment and plan (1) Acute encephalopathy: (2) Acute hyponatremia: (3) Hepatic encephalopathy: (4) Alcoholic cirrhosis: (5) Liver cirrhosis: (6) Acute on chronic anemia: Plan Acute encephalopathy -Likely hepatic encephalopathy ? Component of hyponatremia -Will order CT of the head -CRP, Pro-Greg, lactic acid, blood Cultures ? CT of the chest no evidence of pneumonia ? Plan ? Neurochecks ? Aspiration precautions ? Nih stroke scale ? Start lactulose ? Start rifaximin -Monitor ammonia ? Monitor mentation closely ? UA ? Blood cultures ? Complains of abdominal pain, abdomen nontender, no guarding, no rebound, rigidity, he is at increased risk of SBP, will do ultrasound abdomen Acute on chronic anemia, hemoglobin 7.8, no active bloody or black stools, iron studies, ferritin, Hemoccult stool Hyponatremia -Will monitor -Status post fluid therapy in the ER -Monitor serum sodiums closely History of liver cirrhosis ? INR 1.59, bili 1.9, albumin 2.5, plt 143 Full code ? SCDs for DVT prophylaxis Attestations 2 Medical Necessity Statement*: Patient requires hospitalization, inpatient, greater than 2 midnights, for acute encephalopathy Diagnoses Acute encephalopathy G93.40 Acute hyponatremia E87.1 Hepatic encephalopathy K76.82 Alcoholic cirrhosis K70.30 Liver cirrhosis K74.60 Acute on chronic anemia D64.9
--- NOTE | 2024-06-12 17:17 | CTR_ITS ---
PROCEDURE INFORMATION: Exam: CT Head Without Contrast Exam date and time: 06/12/2024 10:29 PM Age: 59 years old Clinical indication: Altered mental status/memory loss; Confusion or disorientation; Additional info: AMS TECHNIQUE: Imaging protocol: Computed tomography of the head without contrast. Radiation optimization: All CT scans at this facility use at least one of these dose optimization techniques: automated exposure control; mA and/or kV adjustment per patient size (includes targeted exams where dose is matched to clinical indication); or iterative reconstruction. COMPARISON: CT head wo con* [id number] 11/21/2023 1:44 PM RADIATION DOSE METRICS: Total DLP (mGy-cm): 1188.98 FINDINGS: Brain: No evidence of intra-axial or extra-axial hemorrhage. No mass effect or midline shift. Han-white differentiation is maintained. Basilar cisterns are patent. Cerebral ventricles: No hydrocephalus. Paranasal sinuses: The visualized paranasal sinuses are well aerated. Mastoid air cells: The visualized mastoids and middle ears are clear. Bones: Calvarium is intact. No evidence of acute fracture. Soft tissues: Chronic superficial ulcer/wound of the left temporal scalp consider outpatient dermatologic evaluation to exclude a dermal neoplasm. CT/CT head wo con* [id number] IMPRESSION: 1. No acute intracranial abnormality. 2. Chronic superficial ulcer/wound of the left temporal scalp consider outpatient dermatologic evaluation to exclude a dermal neoplasm.
[2024-06-12] MEDS: potassium chloride premix 100 ML 25 MEQ IV (17:18)
--- NOTE | 2024-06-12 17:22 | USR_ITS ---
PROCEDURE INFORMATION: Exam: US Abdomen, Limited; Right Upper Quadrant Exam date and time: 06/12/2024 5:29 PM Age: 59 years old Clinical indication: Abnormal findings; Abnormal radiologic finding of the abdomen; Radiologic exam and body structure: CT abd; Additional info: Liver and gallbladder TECHNIQUE: Imaging protocol: Real time ultrasound of the abdomen with image documentation. Limited exam focused on the right upper quadrant. COMPARISON: US abdomen lmt fluid [id number] 11/19/2023 12:15 PM FINDINGS: Liver: Visualized hepatic parenchyma echogenic and nodular suggestive of hepatic cirrhosis. Small ascites. Flow is not appreciable within the main portal vein, which may be due to slow/static flow versus thrombosis. Gallbladder: There is cholelithiasis. Nonspecific gallbladder wall thickening in the setting of cirrhosis (8 mm). Biliary ducts: The CBD is nondilated, measuring 5 mm. No sonographic evidence of intraductal stone. Pancreas: The pancreas is obscured bowel gas. Right kidney: The right kidney is normal in echotexture and measures 10.8 cm in length. No evidence of hydronephrosis. US/US abdomen limited [id number] IMPRESSION: 1. Cholelithiasis with nonspecific gallbladder wall thickening in the setting of cirrhosis. Consider correlation with biliary labs and nuclear medicine hepatobiliary scan. 2. Cirrhosis with small ascites. Flow is not appreciable within the main portal vein, which may be due to slow/static flow versus thrombosis. Consider follow-up dedicated CT of the abdomen with contrast when clinically appropriate.
[2024-06-12 17:48] LABS: Potassium 2.8 mmol/L (3.5-5.1)
[2024-06-12 17:48] LABS: Lactic Sepsis W/Reflex 1.3 mmol/L (0.5-2.2)
[2024-06-12 18:11] LABS: NT Pro B Type Natriuretic Pept 40 pg/mL (0-125); Procalcitonin 9.19 ng/mL (0-0.5)
[2024-06-12 18:22] LABS: Ferritin 303 ng/mL (30-400); Iron 27 ug/dL (59-158); Percent Saturation 10.3 % (20-50); Total Iron Binding Capacity 261 mcg/dl; Unsaturated Iron Binding 234 ug/dL (112-347)
--- NOTE | 2024-06-12 18:48 | PC.NURSE ---
Patient arrived to ICU at approximately 1835, patient cleaned and transferred to ICU bed from ER
[2024-06-12 19:30] LABS: Chol HDL Ratio 3.43 mg/dL (1.0-5.00); Cholesterol 137 mg/dL (0-200); HDL Cholesterol 40 mg/dL (60-100); LDL Cholesterol Calculated 82 mg/dL (50-129); LDL HDL Ratio 2.05 RATIO (0.00-3.22); Triglycerides 77 mg/dL (0-150)
[2024-06-12 20:36] LABS: Estmated Average Glucose 120; Hemoglobin A1C 5.8 % (4.0-6.0)
[2024-06-12 20:52] LABS: Thyroid Stimulating Hormone 3.31 uIU/mL (0.27-4.20)
[2024-06-12] MEDS: sucralfate 1 gm Tablet PO (21:34)
[2024-06-12] MEDS: lactulose oral liq 20 gm/30 mL UDC PO (21:34)
[2024-06-12] MEDS: acetaminophen 325 mg Tablet 650 MG PO (21:34)
[2024-06-12] MEDS: pantoprazole 40 mg SDV IVP (21:49)
[2024-06-12] MEDS: morphine 4 mg/mL SDV 1 mL 2 MG IVP (22:09)
[2024-06-13] VITALS (32 sets, daily range): BP systolic 93–145; BP diastolic 49–79; PULSE 74–90; RESP 7–29; TEMP 36.5–37.2; O2SAT 96–100
[2024-06-13] MEDS: lactulose oral liq 20 gm/30 mL UDC PO ×4 (03:52→23:27)
[2024-06-13 04:48] LABS: Basophils # 0.1 10^3/uL (0.0-0.1); Basophils % 0.4 %; Eosinophils # 0.4 10^3/uL (0.0-0.8); Eosinophils % 3.4 %; Hematocrit 24.4 % (37-53); Lymphocytes # 1.9 10^3/uL (0.8-4.8); Lymphocytes % 16.6 %; Mean Corpuscular HGB Conc 29.5 g/dL (30-55); Mean Corpuscular Hemoglobin 23.1 pg (27-33); Mean Corpuscular Volume 78.2 fl (82-101); Mean Platelet Volume 10.6 fL (7.4-10.4); Monocytes # 0.7 10^3/uL (0.2-0.9); Monocytes % 6.5 %; Neutrophils # 8.25 10^3/uL (1.8-7.7); Neutrophils % 72.7 %; Nucleated Red Blood Cells % 0 %; Platelet Count 146 10^3/cmm (157-399); Red Blood Count 3.12 10^6/uL (3.85-5.65); Red Cell Distribution Width 22.3 % (12.1-15.1); White Blood Count 11.36 10^3/uL (3.29-11.43)
[2024-06-13 04:59] LABS: INR 1.73 (0.8-1.2)
[2024-06-13 05:03] LABS: Ammonia 141 umol/L (16-60)
[2024-06-13 05:04] LABS: Albumin Level 2.4 g/dL (3.5-5.2); Alkaline Phosphatase 352 U/L (40-130); Anion Gap 14.4 (5-19); Blood Urea Nitrogen 27 mg/dL (6-20); Calcium 7.8 mg/dL (8.5-10.5); Carbon Dioxide 16 mmol/L (22-29); Chloride 103 mmol/L (98-107); Globulin 5.5 g/dL (1.3-4.6); Glomerular Filtration Rate 38.9 mL/min (90-130); Glucose 153 mg/dL (65-115); Osmolality Calculated 278 mOsm/kg (285-295); Potassium 3.4 mmol/L (3.5-5.1); Sodium 130 mmol/L (136-145); Total Bilirubin 2.1 mg/dL (0.15-1.2); Total Protein 7.9 g/dL (6.6-8.7)
[2024-06-13 05:16] LABS: Alanine Aminotransferase 23 U/L (0-41); Aspartate Amino Transferase 68 U/L (0-40)
[2024-06-13] MEDS: pantoprazole 40 mg SDV IVP ×2 (05:59→16:58)
[2024-06-13] MEDS: sucralfate 1 gm Tablet PO ×2 (06:02→16:58)
--- NOTE | 2024-06-13 08:28 | USCV_ITS ---
Eliezer Reynolds Age: 59 Gender: M : 1965 Exam Date: 06/13/2024 09:27 Ordering Phys: Nahid Georges MD Technologist: Exam Location: [facility] – [place], [place] Indication: ? port flow Vein Flow Artery Peak Velocity RHV MHA MHV RHA LHV LHA MPV SPA RPV LPV Liver Length: cm SPV Spleen Length: cm IVC PV Diameter: mm Fluid Collection/Ascites: Location: Findings no images of vessels Conclusions Technically difficult exam Unable to identify portal vessels on this study Portal vessels not evaluated Cirrhotic liver Hakeem Wilson MD (Electronically Signed) Final Date: 13 June 2024 12:17 S
[2024-06-13] MEDS: duloxetine 30 mg Capsule PO (09:06)
[2024-06-13] MEDS: sodium chloride 0.9% 1,000 ML 75 ML IV (09:07)
[2024-06-13] MEDS: meropenem 1,000 mg SDV 1000 MG IVP ×2 (09:07→20:38)
[2024-06-13 09:09] LABS: Creatine Phosphokinase 99 U/L (39-308)
--- NOTE | 2024-06-13 13:39 | PC.OT ---
HOLD OT EVALUATION PER NURSING REQUEST.
[2024-06-13 14:43] LABS: Anion Gap 15.9 (5-19); Blood Urea Nitrogen 30 mg/dL (6-20); Calcium 7.8 mg/dL (8.5-10.5); Carbon Dioxide 15 mmol/L (22-29); Chloride 99 mmol/L (98-107); Creatinine Clr Calc Pharmacy 39.1382; Glomerular Filtration Rate 30.9 mL/min (90-130); Glucose 156 mg/dL (65-115); Osmolality Calculated 273 mOsm/kg (285-295); Sodium 127 mmol/L (136-145)
[2024-06-13 14:46] LABS: Potassium 2.9 mmol/L (3.5-5.1)
--- NOTE | 2024-06-13 16:49 | P.PN_ITS ---
Subjective 2 Subjective: Patient was evaluated this morning, overnight is normotensive, afebrile, pupils equal round reactive to light, he awakens, does follow commands he knows his name he knows his birthdate he knows where he is, he has no specific complaints except just feeling fatigued and malaise, no nausea, vomiting, abdominal pain no chest pain, Vitals/I&O/Wt Last Vital Signs Temp 98.9 F 06/13/24 12:00 Pulse 82 06/13/24 14:00 Resp 9 L 06/13/24 14:00 BP 120/66 06/13/24 14:00 Pulse Ox 97 06/13/24 13:00 O2 Del Method Room Air 06/13/24 10:38 06/13/24 06/13/24 06/13/24 06:59 14:59 22:59 Intake Total 500 / 1600 Balance 500 / 1600 Weight last 48 hrs Weight 86.409 kg Weight 85 kg Weight 90.718 kg Physical Exam 2 Const: COMMON NORMALS: no acute distress EXAM LIMITATIONS: altered mental status GENERAL APPEARANCE: cooperative and disheveled O RIENTATION/CONSCIOUSNESS: Yes awake, Yes oriented to person, Yes oriented to place and Yes confused; not oriented to time HENMT: COMMON NORMALS: normocephalic HEAD & SCALP: normocephalic Eye: COMMON NORMALS: Equal, round and reactive pupils present PUPIL: Yes Equal, round and reactive pupils present Resp: COMMON NORMALS: normal respiratory effort, No retractions, No use of accessory muscles and clear to auscultation bilaterally AUSCULTATION: clear to auscultation bilaterally Cardio: COMMON NORMALS: regular rate, regular rhythm, S1 normal heart sound present and S2 normal heart sound present RATE: regular rate RHYTHM: r egular rhythm HEART SOUNDS: S1 normal heart sound present and S2 normal heart sound present GI: COMMON NORMALS: Normal to inspection, nondistended, normoactive bowel sounds present, Soft to palpation and non-tender PALPATION: Yes Soft to palpation Extremity: COMMON NORMALS: no pedal edema Neuro: SENSORIUM/ORIENTATION: Yes oriented to person, Yes oriented to place and No oriented to time Data 06/13/24 04:37 06/13/24 14:09 Micro: Microbiology 06/12/24 23:33 Blood Culture - Preliminary Blood SPECIMEN COLLECTED 06/12/24 19:43 Blood Culture - Preliminary Blood SPECIMEN COLLECTED A&P Assessment and plan (1) Acute encephalopathy: (2) Acute hyponatremia: (3) Hepatic encephalopathy: (4) Alcoholic cirrhosis: (5) Liver cirrhosis: (6) Acute on chronic anemia: (7) Acute renal failure: (8) Hilar mass: (9) Mediastinal adenopathy: (10) Cholelithiasis: Plan Acute renal failure ? Creatinine 2.2 ? With metabolic acidosis ? Potentially related to contrast-induced nephropathy ? Possibly IV hydration -Possibly hepatorenal syndrome ? Monitor urine output, monitor creatinine -Place Flores catheter - Will place on bicarb drip Acute encephalopathy -Likely hepatic encephalopathy, ammonia levels 140 ? Component of hyponatremia -CT head no acute findings - blood Cultures ? CT of the chest no evidence of pneumonia ? Plan ? Neurochecks ? Aspiration precautions ? Nih stroke scale ? Increase lactulose to 20 g every 6 hours will consider lower rectal dose -Monitor ammonia ? Monitor mentation closely ? UA ? Blood cultures ? Complains of abdominal pain, abdomen nontender, no guarding, no rebound, rigidity, he is at increased risk of SBP, will do ultrasound abdomen US/US abdomen limited [id number] IMPRESSION: 1. Cholelithiasis with nonspecific gallbladder wall thickening in the setting of cirrhosis. Consider correlation with biliary labs and nuclear medicine hepatobiliary scan. 2. Cirrhosis with small ascites. Flow is not appreciable within the main portal vein, which may be due to slow/static flow versus thrombosis. Consider follow-up dedicated CT of the abdomen with contrast when clinically appropriate. -Has risk factors for SBP, start meropenem ? Will order ultrasound abdomen to evaluate for portal vein thrombosis, however anticoagulation will be an issue given his anemia, thrombocytopenia Right suprahilar mass, concerning for malignancy CT/CT angio chest PE protcl [id number] IMPRESSION: 1. 3 cm right suprahilar mass concerning for malignancy. 2. Right hilar, pericardial, and mediastinal adenopathy concerning for metastatic adenopathy. 3. Multiple pulmonary micro nodules noted in the right lung apex. This could reflect lymphangitic carcinomatosis or a superimposed small airway infectious/inflammatory process. -Will need to follow-up with pulmonary as outpatient Acute on chronic anemia, hemoglobin 7.8, no active bloody or black stools, iron 27, ferritin 303, Hemoccult stool Thrombocytopenia Hyponatremia -Will monitor -Status post fluid therapy in the ER -Monitor serum sodiums closely History of liver cirrhosis ? INR 1.59, bili 1.9, albumin 2.5, plt 143 Full code ? SCDs for DVT prophylaxis Attestations 2 Medical Necessity Statement*: Patient requires hospitalization for acute renal failure, acute encephalopathy, hepatic encephalopathy, acute on chronic anemia, hyponatremia hilar mass Diagnoses Acute encephalopathy G93.40 Acute hyponatremia E87.1 Hepatic encephalopathy K76.82 Alcoholic cirrhosis K70.30 Liver cirrhosis K74.60 Acute on chronic anemia D64.9 Acute renal failure N17.9 Hilar mass R91.8 Mediastinal adenopathy R59.0 Cholelithiasis K80.20
[2024-06-13] MEDS: potassium chloride ER 20 mEq Tablet 40 MEQ PO (16:58)
[2024-06-13 17:11] LABS: Hematocrit 24.7 % (37-53)
[2024-06-13] MEDS: sodium bicarbonate 50 MEQ in sodium chloride 0.45% 1,000 ML 100 MEQ IV (17:11)
[2024-06-13 17:23] LABS: C Reactive Protein 9.1 mg/L (0.0-4.9)
[2024-06-13 17:29] LABS: Procalcitonin 10.43 ng/mL (0-0.5)
[2024-06-13 22:22] LABS: Bilirubin Urine Negative (Negative); Blood Urine Negative (Negative); Glucose Urine UA Negative (Normal); Ketones Urine Negative (Negative); Leukocyte Esterase Urine Negative (Negative); Nitrate Urine Negative (Negative); Protein Urine Trace (Negative); Urine Appearance Clear (CLEAR); Urine Color Yellow (Yellow)
[2024-06-13 22:44] LABS: Specific Gravity, Urine 1.058 (1.005-1.030)
[2024-06-13 22:50] LABS: Add Urine Microscopic? YES; Bacteria Urine Trace /hpf; Hyaline Casts Urine 11.97 /lpf; RBC Urine 0-2 /hpf (0-2); Squamous Epithelial Cell Urine 0-5 /hpf (0-5); WBC Urine 0-5 /hpf (0-5)
[2024-06-13 23:15] LABS: UA Slide Review UA Slide Review Perf
[2024-06-14] VITALS (42 sets, daily range): BP systolic 101–157; BP diastolic 50–98; PULSE 77–95; RESP 10–28; TEMP 36.7–36.8; O2SAT 90–100; BMI 29.8
[2024-06-14] MEDS: sodium bicarbonate 50 MEQ in sodium chloride 0.45% 1,000 ML 100 MEQ IV (03:29)
[2024-06-14] MEDS: sucralfate 1 gm Tablet PO ×2 (05:52→18:30)
[2024-06-14] MEDS: pantoprazole 40 mg SDV IVP ×2 (05:52→18:30)
[2024-06-14] MEDS: lactulose oral liq 20 gm/30 mL UDC PO ×3 (05:52→18:30)
[2024-06-14 05:55] LABS: Basophils % 0.3 %; Eosinophils # 0.4 10^3/uL (0.0-0.8); Eosinophils % 2.9 %; Hematocrit 21.7 % (37-53); Lymphocytes # 1.7 10^3/uL (0.8-4.8); Lymphocytes % 13.8 %; Mean Corpuscular HGB Conc 30.4 g/dL (30-55); Mean Corpuscular Hemoglobin 23.2 pg (27-33); Mean Corpuscular Volume 76.1 fl (82-101); Mean Platelet Volume 11.1 fL (7.4-10.4); Monocytes # 0.8 10^3/uL (0.2-0.9); Monocytes % 6.2 %; Neutrophils # 9.17 10^3/uL (1.8-7.7); Neutrophils % 76.1 %; Nucleated Red Blood Cells % 0 %; Platelet Count 144 10^3/cmm (157-399); Red Blood Count 2.85 10^6/uL (3.85-5.65); Red Cell Distribution Width 22.5 % (12.1-15.1); White Blood Count 12.06 10^3/uL (3.29-11.43)
[2024-06-14 06:04] LABS: INR 1.75 (0.8-1.2)
[2024-06-14 06:24] LABS: Ammonia 95 umol/L (16-60)
[2024-06-14 06:26] LABS: Lactate (Lactic Acid level) 1.5 mmol/L (0.5-2.2)
[2024-06-14 06:35] LABS: NT Pro B Type Natriuretic Pept 109 pg/mL (0-125)
[2024-06-14 06:47] LABS: Alanine Aminotransferase 21 U/L (0-41); Albumin Level 2.3 g/dL (3.5-5.2); Alkaline Phosphatase 327 U/L (40-130); Anion Gap 15.9 (5-19); Aspartate Amino Transferase 69 U/L (0-40); Blood Urea Nitrogen 34 mg/dL (6-20); C Reactive Protein 9.2 mg/L (0.0-4.9); Calcium 7.3 mg/dL (8.5-10.5); Carbon Dioxide 14 mmol/L (22-29); Chloride 101 mmol/L (98-107); Creatinine Clr Calc Pharmacy 29.0975; Globulin 5.2 g/dL (1.3-4.6); Glomerular Filtration Rate 21.6 mL/min (90-130); Glucose 144 mg/dL (65-115); Osmolality Calculated 276 mOsm/kg (285-295); Sodium 128 mmol/L (136-145); Total Bilirubin 1.8 mg/dL (0.15-1.2); Total Protein 7.5 g/dL (6.6-8.7)
[2024-06-14 06:50] LABS: Potassium 2.9 mmol/L (3.5-5.1)
--- NOTE | 2024-06-14 08:28 | P.CONIM_ITS ---
Providers/Reason For Consult 2 Consulting Physician/Specialty*: tiffanie fish md Reason for Consult*: hypokalemia, hyponatremia, PRAMOD Requesting Physician: Dr Rosalia Georges Attending Physician: Nahid Georges MD Primary Care Provider: Elizabeth Gagnon MD History of Present Illness History of Present Illness Eliezer Reynolds is a 59 year old male with a past medical history of hepatic encephalopathy, history of alcoholic liver cirrhosis, chronic hyponatremia. Pt was admitted on June 12 w/ altered mental status. He was found to have hyperammonemia, hyponatremia, hypokalemia. CT on admission revealed a right suprahilar mass. he was started on rifaximin, lactulose, and then a bicarb drip for acidosis. he has developed PRAMOD- cr on admission was 1.6 -already high. had conrast ct in ER. Cr has now risen to 3 mg/dl. Review of Systems 2 Narrative: The patient is more awake. He feels lethargic. He is having a few stools a day. He denies shortness of breath or chest pain or leg edema. Mental status improving however still not at baseline. Patient has a Flores catheter minimal urine output. Not eating well. Medications/Allergies Home Medications Medication Instructions Recorded Confirmed Last Taken Type potassium chloride 10 mEq 10 meq PO DAILY@09/11/23 06/12/24 11/18/23 History tablet,extended release pantoprazole 40 mg tablet,delayed 40 mg PO DAILY@10/20/23 06/12/24 11/18/23 History release acetazolamide 250 mg tablet 250 mg PO DAILY@11/02/23 06/12/24 11/18/23 History duloxetine 30 mg capsule,delayed 30 mg PO DAILY@12/15/23 06/12/24 Unknown History release furosemide 40 mg tablet 40 mg PO BID@12/15/23 06/12/24 Unknown History rifaximin 550 mg tablet (Xifaxan) 550 mg PO BID@12/15/23 06/12/24 Unknown History tramadol 50 mg tablet 50 mg PO TID@,,12/15/23 06/12/24 Unknown History lactulose 10 gram/15 mL oral 30 ml PO TID 01/23/24 06/12/24 Unknown History solution spironolactone 100 mg tablet 100 mg PO DAILY 06/12/24 06/12/24 Unknown History Allergies Allergy/AdvReac Type Severity Reaction Status Date / Time azithromycin Allergy ALGY-Anaphy Verified 12/15/23 08:59 laxis Penicillins Allergy Unknown Verified 12/15/23 08:59 Current Medications Generic Name Dose Route Start Last Admin Trade Name Freq PRN Reason Stop Dose Admin Acetaminophen 650 mg 06/12/24 18:41 06/12/24 21:34 Acetaminophen 325 Mg Tablet PO 650 mg Q6H PRN Administration Mild/Mod Pain Or Temp >/= 101 Duloxetine HCl 30 mg 06/13/24 08:00 06/13/24 09:06 Duloxetine 30 Mg Capsule PO 30 mg DAILY@08 ABRAHAN Administration Sodium Bicarbonate 50 meq/ 1,050 mls @ 100 mls/hr 06/13/24 16:45 06/14/24 03:29 Sodium Chloride IV 100 mls/hr .[id number] ABRAHAN Administration Lactulose 20 gm 06/13/24 17:00 06/14/24 05:52 Lactulose Oral Liq 20 Gm/30 Ml Udc PO 20 gm Q6H ABRAHAN Administration Meropenem 1,000 mg 06/13/24 08:30 06/13/24 20:38 Meropenem 1,000 Mg Sdv IVP 1,000 mg Q12H ABRAHAN Administration Protocol Morphine Sulfate 2 mg 06/12/24 18:41 06/12/24 22:09 Morphine 4 Mg/Ml Sdv 1 Ml IVP 2 mg Q4H PRN Administration SEVERE PAIN Pantoprazole Sodium 40 mg 06/12/24 18:41 06/14/24 05:52 Pantoprazole 40 Mg Sdv IVP 40 mg Q12H ABRAHAN Administration Sucralfate 1 gm 06/12/24 18:41 06/14/24 05:52 Sucralfate 1 Gm Tablet PO 1 gm Q12H ABRAHAN Administration PFSH Acute 2 PFSH: Medical History (Updated 06/14/24 @ 08:39 by Jeramie Fish MD) Acute encephalopathy Hepatic encephalopathy Obesity Diastolic CHF Shingles Alcoholism Alcoholic cirrhosis of liver Thrombocytopenia Anemia Alcohol withdrawal COPD exacerbation GI bleeding Acute blood loss anemia Acidosis, lactic Rhabdomyolysis Acute GI bleeding Back pain Liver cirrhosis Congestive heart failure Anemia Ascites Lumbar radiculopathy, chronic Hypothyroid Alcoholism COPD (chronic obstructive pulmonary disease) Surgical History S/P laminectomy with spinal fusion Family History Father CAD (coronary artery disease) Social History Smoking and tobacco/nicotine status: current every day tobacco/nicotine user Vitals/I&O/Wt Last Vital Signs Temp 98.0 F 06/14/24 05:30 Pulse 92 06/14/24 06:00 Resp 11 L 06/14/24 06:00 BP 112/68 06/14/24 08:19 Pulse Ox 98 06/14/24 08:19 O2 Del Method Room Air 06/14/24 06:00 06/13/24 06/14/24 06/14/24 22:59 06:59 14:59 Intake Total 200 / 200 1650 / 1850 Output Total 125 / 125 Balance 200 / 200 1525 / 1725 Weight last 48 hrs Weight 89.018 kg Weight 86.409 kg Weight 85 kg Physical Exam 2 Narrative: Not requiring oxygen. Saturating well on room air. Sitting up in bed. Vital signs noted. Blood pressure acceptable no pressors. HEENT normocephalic atraumatic. Neck supple. Lungs areas of dullness. Heart positive systolic murmur positive S1-S2. Abdomen is soft positive bowel sounds distended nontender. Extremities no edema. Neuro awake alert knows his name he knows he is in the hospital he knows his date of he knows today's date. He is following simple commands. He is lethargic Urinary Catheter Management: Flores: Cath Placed During This Visit: yes Reason for Continuing Indwelling Catheter: Accurate Measurement of Urinary Output in Critically Ill Patients Urinary Catheter Date of Insertion: 06/13/24 Urinary Catheter Time of Insertion: 18:29 Data 06/14/24 04:50 06/14/24 04:50 Micro: Microbiology 06/12/24 23:33 Blood Culture - Preliminary Blood NEGATIVE TO DATE 06/13/24 23:30 Occult Blood (FIT) - Final Stool Routine Collection 06/12/24 19:43 Blood Culture - Preliminary Blood NEGATIVE TO DATE CT Chest: My impression: rt suprahilar mass Radiologist's impression: 1. 3 cm right suprahilar mass concerning for malignancy. 2. Right hilar, pericardial, and mediastinal adenopathy concerning for metastatic adenopathy. 3. Multiple pulmonary micro nodules noted in the right lung apex. This could reflect lymphangitic carcinomatosis or a superimposed small airway infectious/inflammatory process. 4. Incidental note of gallbladder wall thickening cholelithiasis. Perihepatic fluid also noted. This could be reactive to fluid or reflect cholecystitis. 5. Splenomegaly. US: My impression: small ascites Radiologist's impression: 1. Cholelithiasis with nonspecific gallbladder wall thickening in the setting of cirrhosis. Consider correlation with biliary labs and nuclear medicine hepatobiliary scan. 2. Cirrhosis with small ascites. Flow is not appreciable within the main portal vein, which may be due to slow/static flow versus thrombosis. Consider follow-up dedicated CT of the abdomen with contrast when clinically appropriate. A&P Assessment and plan (1) Acute renal failure: 59-year-old gentleman with alcoholic cirrhosis. Patient presented with altered mental status 1. Right suprahilar mass and question of malignancy 2. Acute kidney injury baseline creatinine is closer to 0.9 mg/dL patient was in acute kidney injury on admission is now has oliguric PRAMOD differential diagnosis could be ATN with a component now contrast-induced PRAMOD. Also concern for hepatorenal syndrome and also renal vein thrombosis please note the patient appears to have portal vein thrombosis. Will order renal ultrasound with renal artery duplex to look at the renal veins. Will send urine for electrolytes and urinalysis. Can send hepatitis studies complements. Regarding treatments will start octreotide. Would review with blood. Will also give albumin. If patient remains oliguric can give Lasix to see if he responds. I explained to him that he may need dialysis soon. 3. Hyponatremia can be multi factorial. Check TSH check cortisol level. Check urine electrolytes. Acute kidney injury and liver failure can be contributing. Check a.m. cortisol level. Monitor with treatment of PRAMOD. Free water restrict the patient. aVoid tolvaptan with cirrhosis. 4. Hypokalemia replace gently and monitor chemistries. Monitor magnesium. 5. Patient has an increased anion gap metabolic acidosis from renal failure also check lactate. Please note his anion gap is 13 however he has an albumin of 2.3. Will follow the patient closely along with you. The patient is critically ill with liver failure question of malignancy acute kidney injury question of infection. And improving mental status. The patient was seen and examined with the nurse as a telehealth visit using A/V equipment. The patient consents to dialysis if necessary and to telehealth. Qualifiers: Acute renal failure type: unspecified Qualified Code(s): N17.9 - Acute kidney failure, unspecified Plan See above. Discussed with Consult Attestations 2 Medical Necessity Statement: Liver failure, altered mental status electrolyte abnormalities metabolic acidosis acute kidney injury Time Spent in Patient Care: Greater than 35 minutes (>than 50% of time spent in counselling and/or direct pt care on unit) . Coding Level of Care Code Acute Code for [facility] Fwd Diagnoses Acute renal failure, unspecified acute renal failure type N17.9 Acute renal failure type: unspecified
[2024-06-14] MEDS: potassium chloride ER 20 mEq Tablet 40 MEQ PO (08:29)
[2024-06-14] MEDS: duloxetine 30 mg Capsule PO (08:29)
[2024-06-14] MEDS: meropenem 1,000 mg SDV 1000 MG IVP (08:29)
[2024-06-14 09:28] LABS: Thyroid Stimulating Hormone 6.45 uIU/mL (0.27-4.20)
--- NOTE | 2024-06-14 09:35 | PC.SOCIAL ---
IMM Update Pg. 2 of IMM Updated. Copy provided to patient.
[2024-06-14 09:56] LABS: Cortisol Random 11.77 ug/dL (2.47-19.5)
[2024-06-14] MEDS: magnesium oxide 400 mg tablet PO ×2 (11:13→18:30)
[2024-06-14] MEDS: octreotide 500 MCG in sodium chloride 0.9% (100 ml) 100 ML 10.1 MCG IV ×2 (11:13→18:30)
[2024-06-14] MEDS: albumin 25 G/100 ML BAG 60 G IV ×2 (11:13→18:30)
[2024-06-14 11:16] LABS: ABG PCO2 26.3 mmHg (35-45); ABG PH Result 7.32 (7.35-7.45); Alveolar-Arterial Oxygen Gradi 5.5 mmHg (5-10); Arterial Blood Gas Hematocrit 26.2 % (42-52); Base Excess ABG -11.2 mmol/L (-2.0-2.0); Blood Gas Allen Test Pos; Blood Gas Operator Identificat GD; Blood Gas Sample Site Radial, right; Blood Gas Sample Type Arterial; Carboxyhemoglobin 1.5 %THgb (0.4-20.1); HCO3 ABG 13.6 mmol/L (22-26); HGB O2 Sat 91.2 % (95-100); Ionized Calcium Level - ABG 1.1 mmol/L (1.1-1.4); Methemoglobin 1.4 % (0.4-1.5); Oxygen Device ROOM AIR; Oxygen Saturation ABG 93.9; PO2 ABG 74.2 mmHg (80.0-100.0); PO2 FiO2 Ratio Arterial Blood 353; Potassium Level - ABG 2.8 mmol/L (3.5-5.0); Total Hemoglobin 8.5 g/dL (14-18)
[2024-06-14 12:04] LABS: Hepatitis C Virus Antibody Non-Reactive (Nonreactive)
[2024-06-14 12:57] LABS: Bilirubin Urine Negative (Negative); Blood Urine 3+ (Negative); Glucose Urine UA Negative (Normal); Ketones Urine Trace (Negative); Leukocyte Esterase Urine 2+ (Negative); Nitrate Urine Negative (Negative); Protein Urine 1+ (Negative); Urine Appearance Cloudy (CLEAR); Urine Color Yellow (Yellow)
[2024-06-14 12:57] LABS: Alanine Aminotransferase 23 U/L (0-41); Albumin Level 2.7 g/dL (3.5-5.2); Alkaline Phosphatase 312 U/L (40-130); Aspartate Amino Transferase 67 U/L (0-40); Blood Urea Nitrogen 34 mg/dL (6-20); Calcium 7.6 mg/dL (8.5-10.5); Carbon Dioxide 13 mmol/L (22-29); Chloride 94 mmol/L (98-107); Creatinine Clr Calc Pharmacy 26.4523; Globulin 5.3 g/dL (1.3-4.6); Glomerular Filtration Rate 19.4 mL/min (90-130); Glucose 153 mg/dL (65-115); Magnesium 1.7 mg/dL (1.7-2.3); Osmolality Calculated 259 mOsm/kg (285-295); Phosphorus 4.3 mg/dL (2.5-4.5); Total Bilirubin 2.1 mg/dL (0.15-1.2)
[2024-06-14 13:06] LABS: Bacteria Urine 2+ /hpf; Hyaline Casts Urine 32.68 /lpf; RBC Urine >100 /hpf (0-2); WBC Urine >100 /hpf (0-5)
[2024-06-14 13:07] LABS: Sodium 119 mmol/L (136-145)
[2024-06-14 13:11] LABS: Add Urine Culture? Yes; Specific Gravity, Urine 1.037 (1.005-1.030)
[2024-06-14 13:29] LABS: Potassium, Radom Urine 15 mmol/L; Urine Creatinine 181 mg/dL (39-259); Urine Random Chloride 25 mmol/L
[2024-06-14 14:16] LABS: Urine Random Sodium < 10 mmol/L
[2024-06-14 14:36] LABS: Sodium 124 mmol/L (136-145)
--- NOTE | 2024-06-14 14:57 | P.PN_ITS ---
Subjective 2 Subjective: - Patient was examined multiple times th roughout the morning into the afternoon, spoke to nephrology, spoke to nursing staff, spoke to patient's mother -This morning patient was seen he is kandy rt to person, to place, somewhat to time, he follows all commands, he has no specific complaints he is on room air, normotensive, no abdominal pain, no nausea, no vomiting -We discussed his morning labs, unfortun ately he is developing acute renal failure with his urine output being lackluster -I think the etiology behind his acute r enal failure is likely a component of dehydration, hypovolemia, contrast-induced nephropathy and on top of that hepatorenal syndrome, as he came in with a creatinine of 1.6 ? We also discussed his underlying liver cirrhosis, he is adamant he has not drink alcohol in a while, denies any abdominal pain, no fevers, chills, I do have him on meropenem for SBP, although felt to be unlikely, the abdominal ultrasound shows small volume ascites, -We also discussed the possibility of po rtal vein thrombosis, as his ultrasound abdomen yesterday was a poor quality study, I spoke to radiology it is difficult to say he might have chronic portal vein thrombosis versus acute, unfortunately we cannot anticoagulate him given his acute anemia # Acute anemia hemoglobin 6.6 will give him a unit of blood ? The other difficulties that he has a history of esophageal varices, he has a history of GI bleeds, ? He does also have a history of diastolic CHF, currently not in exacerbation, currently on room air ? We also had a detailed discussion with him about his liver markers, they are about stable may be slightly worse this morning, will continue to monitor ? In terms of his acute renal failure I discussed with him options are available, currently with his elevated creatinine his decreasing urine output, he will likely need dialysis, will continue to conservatively manage him with IV fluids however his creatinine continues to increase we will consult nephrology, but patient might require dialysis ? We also discussed transferring to tertiary level center, as we do not have GI here, and patient will benefit from GI evaluation ? The other complicating factor is is found to have a 3 cm right suprahilar mass, with mediastinal hilar pericardial lymphadenopathy, and micronodules of the right lung he does report a history of smoking, this is highly suspicious for malignancy however the CT angiogram the chest was negative for PE, at this point nothing is acute, however we will have him follow-up with pulmonary and oncology as outpatient and he does need evaluation for this -He tells me that he lives at home, his , he is not in contact with his son, he does not have his son's phone number, he is taking care of his grandson, who is 12 years old, and his mother currently is on hospice at home because of COPD, and she is taking care of her grandson -Will have nephrology see him -I spoke to patient's mother, discussed with him his clinical condition, his worsening renal function and the need for dialysis, the possible need for tertiary level center evaluation, she tells me that she is worried about her grandson, who will take care of her grandson, as she does not have long to live, and she is worried about Eliezer also deteriorating, she wishes me to tell Eliezer to do everything, and that she wants of breath to start paperwork for his living will, but she tells me that she wants everything to be done for her son, if he cannot make decisions for himself -I spoke to nephrology, concerns for hep atorenal syndrome, portal vein thrombosis, acute anemia, recommended to monitor kidney function closely monitor CBC closely, possible need for dialysis based upon patient's creatinine, urine output, clinical condition currently he is quite comfortable but he will likely need dialysis in the near future, will monitor him closely sodium bicarb drip was stopped monitor serum sodiums, monitor renal function monitor urine output, ABG ordered -Patient was reexamined later in the [facility], he is alert oriented x 3, sitting up in a chair, he has no complaints, no chest pain no shortness of breath, he looks comfortable we had a detailed discussion with him about his overall goals of care, I had given him a lot of information, especially with his life-changing diagnosis of the right suprahilar mass I want to give him some time to digest all this information -After discussing with him the risk and benefits of all options, he is agreeable to dialysis if needed, -Discussing with him the risk and benefi ts all options, we discussed transfer to tertiary level center, for the need for GI, after discussing risk and benefits, he voiced understanding, all questions were, agreed to proceed -Spoke to [facility], spoke to their life skills coordinator, spoke to their nurse practitioner, patient was excepted in transfer ? Patient was reexamined discussed with him transfer to [facility], discussed risk and benefits, he voiced understanding, all questions were, agreed to proceed ? Also placed along his message from his mother -Patient's most recent sodium 119, suspe ct that this is a false negative as patient is quite alert awake has no complaints of headache or blurry vision or nausea vomiting ? Recheck serum sodium 124 ? Currently on octreotide, albumin, sodium bicarb has been stopped due to hypokalemia has received 40 p.o. potassium, will continue to monitor mentation closely ? Repeat BMP, and CMP at 8 PM Vitals/I&O/Wt Last Vital Signs Temp 98.0 F 06/14/24 05:30 Pulse 82 06/14/24 14:30 Resp 17 06/14/24 14:30 BP 101/81 06/14/24 14:30 Pulse Ox 97 06/14/24 14:30 O2 Del Method Room Air 06/14/24 08:47 06/13/24 06/14/24 06/14/24 22:59 06:59 14:59 Intake Total 200 / 200 1650 / 1850 350 / 350 Output Total 125 / 125 Balance 200 / 200 1525 / 1725 350 / 350 Weight last 48 hrs Weight 89.018 kg Weight 86.409 kg Weight 85 kg Physical Exam 2 Narrative: Right IJ central line in place Const: COMMON NORMALS: no acute distress and patient oriented x3 Resp: COMMON NORMALS: normal respiratory effort, No retractions, No use of accessory muscles and clear to auscultation bilaterally AUSCULTATION: clear to auscultation bilaterally Cardio: COMMON NORMALS: regular rate, regular rhythm, S1 normal heart sound present and S2 normal heart sound present RATE: regular rate RHYTHM: r egular rhythm HEART SOUNDS: S1 normal heart sound present and S2 normal heart sound present GI: COMMON NORMALS: Normal to inspection, nondistended, normoactive bowel sounds present and non-tender Extremity: COMMON NORMALS: no calf tenderness and no pedal edema Neuro: COMMON NORMALS: patient oriented x3 Psych: COMMON NORMALS: mental status grossly normal Urinary Catheter Management: Flores: Cath Placed During This Visit: yes Reason for Continuing Indwelling Catheter: Accurate Measurement of Urinary Output in Critically Ill Patients Urinary Catheter Date of Insertion: 06/13/24 Urinary Catheter Time of Insertion: 18:29 Data 06/14/24 04:50 06/14/24 14:00 Micro: Microbiology 06/12/24 23:33 Blood Culture - Preliminary Blood NEGATIVE TO DATE 06/13/24 23:30 Occult Blood (FIT) - Final Stool Routine Collection 06/12/24 19:43 Blood Culture - Preliminary Blood NEGATIVE TO DATE A&P Assessment and plan (1) Acute encephalopathy: (2) Acute hyponatremia: (3) Hepatic encephalopathy: (4) Alcoholic cirrhosis: (5) Liver cirrhosis: (6) Acute on chronic anemia: (7) Acute renal failure: Qualifiers: Acute renal failure type: unspecified Qualified Code(s): N17.9 - Acute kidney failure, unspecified (8) Hilar mass: (9) Mediastinal adenopathy: (10) Cholelithiasis: Plan Acute renal failure -Effect of hypovolemia contrast-induced nephropathy, hepatorenal syndrome ? Creatinine 3.3 ? With metabolic acidosis, increased anion gap ? Potentially related to contrast-induced nephropathy ? Status post dehydration, bicarb drip, will hold off on further fluid therapy -Possibly hepatorenal syndrome ? Monitor urine output, monitor creatinine -Monitor BMP -Place Flores catheter -Nephrology consulted -Continue octreotide -Continue albumin Acute encephalopathy, resolved -Likely hepatic encephalopathy, ammonia levels 95 ? Component of hyponatremia -CT head no acute findings - blood Cultures ? CT of the chest no evidence of pneumonia ? Plan ? Neurochecks ? Aspiration precautions ? Nih stroke scale ? Increase lactulose to 20 g every 6 hours -Monitor ammonia ? Monitor mentation closely ? UA ? Blood cultures ? Complains of abdominal pain, abdomen nontender, no guarding, no rebound, rigidity, he is at increased risk of SBP,ultrasound abdomen US/US abdomen limited [id number] IMPRESSION: 1. Cholelithiasis with nonspecific gallbladder wall thickening in the setting of cirrhosis. Consider correlation with biliary labs and nuclear medicine hepatobiliary scan. 2. Cirrhosis with small ascites. Flow is not appreciable within the main portal vein, which may be due to slow/static flow versus thrombosis. Consider follow-up dedicated CT of the abdomen with contrast when clinically appropriate. -Has risk factors for SBP, start meropenem Concerns for portal vein thrombosis -Given ultrasound results as above -Repeat ultrasound abdomen for portal vein flow poor quality study -Unfortunately with his acute anemia, cannot anticoagulate this at this point -Will have to monitor closely -Will transfer to [facility] for GI evaluation Right suprahilar mass, concerning for malignancy CT/CT angio chest PE protcl [id number] IMPRESSION: 1. 3 cm right suprahilar mass concerning for malignancy. 2. Right hilar, pericardial, and mediastinal adenopathy concerning for metastatic adenopathy. 3. Multiple pulmonary micro nodules noted in the right lung apex. This could reflect lymphangitic carcinomatosis or a superimposed small airway infectious/inflammatory process. -Will need to follow-up with pulmonary as outpatient Acute on chronic anemia, hemoglobin 6.6, no active bloody or black stools, iron 27, ferritin 303, Hemoccult stool -Status post 1 unit PRBC Thrombocytopenia Hyponatremia, 124 -Will monitor -Monitor serum sodiums closely History of liver cirrhosis ? INR 1.59, bili 1.9, albumin 2.5, plt 143 Full code ? SCDs for DVT prophylaxis - Patient was examined multiple times throughout the morning into the afternoon, spoke to nephrology, spoke to nursing staff, spoke to patient's mother -This morning patient was seen he is alert to person, to place, somewhat to time, he follows all commands, he has no specific complaints he is on room air, normotensive, no abdominal pain, no nausea, no vomiting -We discussed his morning labs, unfortunately he is developing acute renal failure with his urine output being lackluster -I think the etiology behind his acute renal failure is likely a component of dehydration, hypovolemia, contrast-induced nephropathy and on top of that hepatorenal syndrome, as he came in with a creatinine of 1.6 ? We also discussed his underlying liver cirrhosis, he is adamant he has not drink alcohol in a while, denies any abdominal pain, no fevers, chills, I do have him on meropenem for SBP, although felt to be unlikely, the abdominal ultrasound shows small volume ascites, -We also discussed the possibility of portal vein thrombosis, as his ultrasound abdomen yesterday was a poor quality study, I spoke to radiology it is difficult to say he might have chronic portal vein thrombosis versus acute, unfortunately we cannot anticoagulate him given his acute anemia # Acute anemia hemoglobin 6.6 will give him a unit of blood ? The other difficulties that he has a history of esophageal varices, he has a history of GI bleeds, ? He does also have a history of diastolic CHF, currently not in exacerbation, currently on room air ? We also had a detailed discussion with him about his liver markers, they are about stable may be slightly worse this morning, will continue to monitor ? In terms of his acute renal failure I discussed with him options are available, currently with his elevated creatinine his decreasing urine output, he will likely need dialysis, will continue to conservatively manage him with IV fluids however his creatinine continues to increase we will consult nephrology, but patient might require dialysis ? We also discussed transferring to tertiary level center, as we do not have GI here, and patient will benefit from GI evaluation ? The other complicating factor is is found to have a 3 cm right suprahilar mass, with mediastinal hilar pericardial lymphadenopathy, and micronodules of the right lung he does report a history of smoking, this is highly suspicious for malignancy however the CT angiogram the chest was negative for PE, at this point nothing is acute, however we will have him follow-up with pulmonary and oncology as outpatient and he does need evaluation for this -He tells me that he lives at home, his , he is not in contact with his son, he does not have his son's phone number, he is taking care of his grandson, who is 12 years old, and his mother currently is on hospice at home because of COPD, and she is taking care of her grandson -Will have nephrology see him -I spoke to patient's mother, discussed with him his clinical condition, his worsening renal function and the need for dialysis, the possible need for tertiary level center evaluation, she tells me that she is worried about her grandson, who will take care of her grandson, as she does not have long to live, and she is worried about Eliezer also deteriorating, she wishes me to tell Eliezer to do everything, and that she wants of breath to start paperwork for his living will, but she tells me that she wants everything to be done for her son, if he cannot make decisions for himself -I spoke to nephrology, concerns for hepatorenal syndrome, portal vein thrombosis, acute anemia, recommended to monitor kidney function closely monitor CBC closely, possible need for dialysis based upon patient's creatinine, urine output, clinical condition currently he is quite comfortable but he will likely need dialysis in the near future, will monitor him closely sodium bicarb drip was stopped monitor serum sodiums, monitor renal function monitor urine output, ABG ordered -Patient was reexamined later in the morning, he is alert oriented x 3, sitting up in a chair, he has no complaints, no chest pain no shortness of breath, he looks comfortable we had a detailed discussion with him about his overall goals of care, I had given him a lot of information, especially with his life-changing diagnosis of the right suprahilar mass I want to give him some time to digest all this information -After discussing with him the risk and benefits of all options, he is agreeable to dialysis if needed, -Discussing with him the risk and benefits all options, we discussed transfer to tertiary level center, for the need for GI, after discussing risk and benefits, he voiced understanding, all questions were, agreed to proceed -Spoke to [facility], spoke to their life skills coordinator, spoke to their nurse practitioner, patient was excepted in transfer ? Patient was reexamined discussed with him transfer to [facility], discussed risk and benefits, he voiced understanding, all questions were, agreed to proceed ? Also placed along his message from his mother -Patient's most recent sodium 119, suspect that this is a false negative as patient is quite alert awake has no complaints of headache or blurry vision or nausea vomiting ? Recheck serum sodium 124 ? Currently on octreotide, albumin, sodium bicarb has been stopped due to hypokalemia has received 40 p.o. potassium, will continue to monitor mentation closely ? Repeat BMP, and CMP at 8 PM Attestations 2 Medical Necessity Statement*: Patient requires hospitalization, for acute renal failure, metabolic acidosis, increased anion gap, acute anemia, hyponatremia, hepatic encephalopathy, liver cirrhosis, concerns for portal vein thrombosis Diagnoses Acute encephalopathy G93.40 Acute hyponatremia E87.1 Hepatic encephalopathy K76.82 Alcoholic cirrhosis K70.30 Liver cirrhosis K74.60 Acute on chronic anemia D64.9 Acute renal failure, unspecified acute renal failure type N17.9 Acute renal failure type: unspecified Hilar mass R91.8 Mediastinal adenopathy R59.0 Cholelithiasis K80.20
[2024-06-14 16:32] LABS: Basophils % 0.3 %; Eosinophils # 0.3 10^3/uL (0.0-0.8); Eosinophils % 2.7 %; Hematocrit 26.9 % (37-53); Lymphocytes # 1.6 10^3/uL (0.8-4.8); Lymphocytes % 12.6 %; Mean Corpuscular HGB Conc 30.5 g/dL (30-55); Mean Corpuscular Hemoglobin 24.1 pg (27-33); Mean Corpuscular Volume 79.1 fl (82-101); Mean Platelet Volume 10.6 fL (7.4-10.4); Monocytes # 0.9 10^3/uL (0.2-0.9); Monocytes % 6.8 %; Nucleated Red Blood Cells % 0 %; Platelet Count 134 10^3/cmm (157-399); Red Cell Distribution Width 21.9 % (12.1-15.1)
--- NOTE | 2024-06-14 17:04 | PM.TDS ---
Transfer Summary Providers Date of Admission: 06/12/24 18:07 Date of Discharge/Transfer: 06/14/24 Attending Provider at Admission: Nahid Georges MD Attending Provider at Transfer: Nahid Georges MD Primary Care Provider: Elizabeth Gagnon MD Transfer Plans: Anticipated date of transfer: 06/14/24. Diagnoses at Discharge Discharge Diagnosis (1) Acute encephalopathy: Status: Acute (2) Acute hyponatremia: Status: Acute (3) Hepatic encephalopathy: Status: Acute (4) Alcoholic cirrhosis: Status: Acute (5) Liver cirrhosis: Status: Acute (6) Acute on chronic anemia: Status: Acute (7) Acute renal failure: Status: Acute Qualifiers: Acute renal failure type: unspecified Qualified Code(s): N17.9 - Acute kidney failure, unspecified (8) Hilar mass: Status: Acute (9) Mediastinal adenopathy: Status: Acute (10) Cholelithiasis: Status: Acute Reason for Visit Reason for Visit WEAKNESS Hospital Course Hospital Course Eliezer Reynolds is a 59 year old male with a past medical history of hepatic encephalopathy, history of alcoholic liver cirrhosis, chronic hyponatremia, who presents [facility] due to altered mental status. Currently patient is alert to person, not to place, not to time he does not know where he is he does not know what country he is in, or does he remember his address or his birthdate. When asked him why he is here in the hospital, he tells me that he was sent here for an infusion, not of blood another infusion? No facial droop, no slurring of his words, he is moving bilateral upper lower extremities, had a central line placed into the right IJ for poor peripheral access. Pupils equal round reactive to light, he is able to claims auditor my hands with bilateral upper extremities, good strength bilaterally, moved able to move bilateral legs, when asked him if there is anything bothering him, he tells me he hurts all over, he reports feeling fatigue, malaise, has complaints of abdominal pain, Patient was admitted to [facility] for acute encephalopathy, hepatic encephalopathy, concerns for spontaneous bacterial peritonitis, PRAMOD, hyponatremia. Please look at my progress note for further detail. In terms of patient's encephalopathy, improved with lactulose, patient is back to the baseline alert oriented x 3, following commands and bili levels 95. Patient sodium levels fluctuate, currently off fluids, last serum sodium 124. Patient was found to have a right suprahilar mass, concerning for malignancy, will need to follow-up with pulmonary, oncology. Also findings concerning for portal vein thrombosis, however cannot do a CT abdomen pelvis with IV contrast to better delineate this given his PRAMOD. Cannot place patient on anticoagulant therapy given his acute anemia requiring 1 unit PRBC, repeat hemoglobin 8.2 after 1 unit PRBC. Due to developing PRAMOD creatinine up to 3.3, lackluster urine output concerning for hepatorenal syndrome, and/or contrast-induced nephropathy, nephrology was consulted placed on octreotide, albumin therapy. With plans on possible dialysis in the near future depending on his clinical progress. Discussed options available to patient, given his underlying liver cirrhosis, his acute anemia, concern for portal vein thrombosis developing acute renal failure concern for hepatorenal syndrome. Discussed transfer to tertiary level center for evaluation of GI, which is not available here at [facility] for tertiary level care, multidisciplinary team. After discussing the risk and benefits, of all options, he voiced understanding of all questions answered, agreed to transfer to [facility] in [place]. Patient was assessed at [facility], transferred via ground. Last hemoglobin is 8.2, last serum sodium 124, patient alert and orient x 3, following all commands, normotensive, on room air, temp pressure 98. Physical Exam Const: COMMON NORMALS: no acute distress and patient oriented x3 Resp: COMMON NORMALS: normal respiratory effort, No retractions, No use of accessory muscles and clear to auscultation bilaterally AUSCULTATION: clear to auscultation bilaterally Cardio: COMMON NORMALS: regular rate, regular rhythm, S1 normal heart sound present and S2 normal heart sound present RATE: regular rate RHYTHM: regular rhythm HEART SOUNDS: S1 normal heart sound present and S2 normal heart sound present GI: COMMON NORMALS: Normal to inspection, nondistended, normoactive bowel sounds present and non-tender Extremity: COMMON NORMALS: no pedal edema Neuro: COMMON NORMALS: patient oriented x3 Psych: COMMON NORMALS: mental status grossly normal Urinary Catheter Management: Flores: Cath Placed During This Visit: yes Reason for Continuing Indwelling Catheter: Accurate Measurement of Urinary Output in Critically Ill Patients Urinary Catheter Date of Insertion: 06/13/24 Urinary Catheter Time of Insertion: 18:29 TS Data Studies Completed and Pending Pending at discharge Category Date Time Status KODY Screen w/ Reflex Routine Lab 06/14/24 04:50 Received Ammonia AM LABS Lab 06/15/24 04:00 Ordered BMP [Basic Metabolic Panel] Stat Lab 06/14/24 21:00 Ordered Blood Culture Routine Lab 06/12/24 23:33 Results C Reactive Protein AM LABS Lab 06/15/24 04:00 Ordered C Reactive Protein AM LABS Lab 06/16/24 04:00 Ordered Complete Blood Count w/Auto AM LABS Lab 06/15/24 04:00 Ordered Complete Blood Count w/Auto AM LABS Lab 06/15/24 04:00 Ordered Complete Blood Count w/Auto AM LABS Lab 06/16/24 04:00 Ordered Complete Blood Count w/Auto AM LABS Lab 06/17/24 04:00 Ordered Comprehensive Metabolic Panel AM LABS Lab 06/15/24 04:00 Ordered Comprehensive Metabolic Panel AM LABS Lab 06/15/24 04:00 Ordered Comprehensive Metabolic Panel AM LABS Lab 06/16/24 04:00 Ordered Comprehensive Metabolic Panel AM LABS Lab 06/17/24 04:00 Ordered Cortisol Random AM LABS Lab 06/15/24 04:00 Ordered Hemoglobin and Hematocrit Stat Lab 06/14/24 21:00 Ordered Lactate (Lactic Acid level) AM LABS Lab 06/15/24 04:00 Ordered Lactate (Lactic Acid level) AM LABS Lab 06/16/24 04:00 Ordered Magnesium AM LABS Lab 06/15/24 04:00 Ordered Magnesium AM LABS Lab 06/16/24 04:00 Ordered Magnesium AM LABS Lab 06/17/24 04:00 Ordered NT Pro B Type Natriuretic Pept QAM Lab 06/15/24 06:00 Ordered NT Pro B Type Natriuretic Pept QAM Lab 06/16/24 06:00 Ordered Osmolality Urine Stat Lab 06/14/24 11:55 Received Phosphorus AM LABS Lab 06/15/24 04:00 Ordered Phosphorus AM LABS Lab 06/16/24 04:00 Ordered Phosphorus AM LABS Lab 06/17/24 04:00 Ordered Procalcitonin AM LABS Lab 06/15/24 04:00 Ordered Procalcitonin AM LABS Lab 06/16/24 04:00 Ordered Prothrombin Time INR AM LABS Lab 06/15/24 04:00 Ordered Urine Culture Stat Lab 06/14/24 11:55 Received CV renal doppler [id number] Routine Ultrasound 06/15/24 06:00 Ordered Completed Studies During Hospitalization Category Date Time Status CT angio chest PE protcl [id number] Stat Cat Scan 06/12/24 08:[address] head wo con* [id number] Stat Cat Scan 06/12/24 17:17 Completed XR chest 1V portable [id number] Stat Exams 06/12/24 08:27 Completed US ABD DOPPLER [id number] Routine Ultrasound 06/13/24 08:28 Completed US abdomen limited [id number] Stat Ultrasound 06/12/24 17:22 Completed Laboratory Last Values WBC 12.60 10^3/uL (3.29-11.43) H 06/14/24 16:15 RBC 3.40 10^6/uL (3.85-5.65) L 06/14/24 16:15 Hgb 8.20 g/dL (11.27-16.99) L 06/14/24 16:15 Hct 26.9 % (37-53) L 06/14/24 16:15 MCV 79.1 fl (82-101) L 06/14/24 16:15 MCH 24.1 pg (27-33) L 06/14/24 16:15 MCHC 30.5 g/dL (30-55) 06/14/24 16:15 RDW 21.9 % (12.1-15.1) H 06/14/24 16:15 Plt Count 134 10^3/cmm (157-399) L 06/14/24 16:15 MPV 10.6 fL (7.4-10.4) H 06/14/24 16:15 Neut % (Auto) 77.0 % 06/14/24 16:15 Lymph % (Auto) 12.6 % 06/14/24 16:15 Moore % (Auto) 6.8 % 06/14/24 16:15 Eos % (Auto) 2.7 % 06/14/24 16:15 Baso % (Auto) 0.3 % 06/14/24 16:15 Neut # (Auto) 9.70 10^3/uL (1.8-7.7) H 06/14/24 16:15 Lymph # (Auto) 1.6 10^3/uL (0.8-4.8) 06/14/24 16:15 Moore # (Auto) 0.9 10^3/uL (0.2-0.9) 06/14/24 16:15 Eos # (Auto) 0.3 10^3/uL (0.0-0.8) 06/14/24 16:15 Baso # (Auto) 0.0 10^3/uL (0.0-0.1) 06/14/24 16:15 Nucleated RBC % (auto) 0 % 06/14/24 16:15 Nucleated RBCs # 0.0 /100WBC 06/14/24 16:15 PT 21.00 SECONDS (12.1-14.9) H 06/14/24 04:50 INR 1.75 (0.8-1.2) H 06/14/24 04:50 Specimen Type Arterial 06/14/24 10:53 Sample Site Radial, right 06/14/24 10:53 ABG pH 7.32 (7.35-7.45) L 06/14/24 10:53 ABG pCO2 26.3 mmHg (35-45) L 06/14/24 10:53 ABG pO2 74.2 mmHg (80.0-100.0) L 06/14/24 10:53 ABG PO2/FiO2 Ratio 353 06/14/24 10:53 ABG HCO3 13.6 mmol/L (22-26) L 06/14/24 10:53 ABG O2 Saturation 93.9 06/14/24 10:53 ABG Base Excess -11.2 mmol/L (-2.0-2.0) L 06/14/24 10:53 Ward Test Pos 06/14/24 10:53 A-a O2 Gradient 5.5 mmHg (5-10) 06/14/24 10:53 Hematocrit 26.2 % (42-52) L 06/14/24 10:53 Hgb O2 Saturation 91.2 % (95-100) L 06/14/24 10:53 Carboxyhemoglobin 1.5 %THgb (0.4-20.1) 06/14/24 10:53 Methemoglobin 1.4 % (0.4-1.5) 06/14/24 10:53 Total Hemoglobin 8.5 g/dL (14-18) L 06/14/24 10:53 Sodium 126.0 mmol/L (131-143) L 06/14/24 10:53 Potassium 2.8 mmol/L (3.5-5.0) L 06/14/24 10:53 Glucose 168.0 mg/dL (70-115) H 06/14/24 10:53 Ionized Calcium 1.1 mmol/L (1.1-1.4) 06/14/24 10:53 O2 Delivery Device Room air 06/14/24 10:53 FiO2 21.0 % 06/14/24 10:53 Mosaic Layer ID Gd 06/14/24 10:53 Sodium 124 mmol/L (136-145) L 06/14/24 14:00 Potassium 3.0 mmol/L (3.5-5.1) L 06/14/24 12:32 Chloride 94 mmol/L (98-107) L 06/14/24 12:32 Carbon Dioxide 13 mmol/L (22-29) L 06/14/24 12:32 Anion Gap 15.0 (5-19) 06/14/24 12:32 BUN 34 mg/dL (6-20) H 06/14/24 12:32 Creatinine 3.3 mg/dL (0.7-1.2) H 06/14/24 12:32 GFR Calculation 19.4 mL/min (90-130) L 06/14/24 12:32 Glucose 153 mg/dL (65-115) H 06/14/24 12:32 Estimat Average Glucose 120 06/12/24 08:50 Hemoglobin A1c 5.8 % (4.0-6.0) 06/12/24 08:50 Calculated Osmolality 259 mOsm/kg (285-295) L 06/14/24 12:32 Lactic Acid 1.3 mmol/L (0.5-2.2) 06/12/24 17:18 Lactate 1.5 mmol/L (0.5-2.2) 06/14/24 04:50 Calcium 7.6 mg/dL (8.5-10.5) L 06/14/24 12:32 Phosphorus 4.3 mg/dL (2.5-4.5) 06/14/24 12:32 Magnesium 1.7 mg/dL (1.7-2.3) 06/14/24 12:32 Iron 27 ug/dL (59-158) L 06/12/24 08:50 TIBC 261 mcg/dl 06/12/24 08:50 % Saturation 10.3 % (20-50) L 06/12/24 08:50 Unsat Iron Binding 234 ug/dL (112-347) 06/12/24 08:50 Ferritin 303 ng/mL (30-400) 06/12/24 08:50 Total Bilirubin 2.1 mg/dL (0.15-1.2) H 06/14/24 12:32 AST 67 U/L (0-40) H 06/14/24 12:32 ALT 23 U/L (0-41) 06/14/24 12:32 Alkaline Phosphatase 312 U/L (40-130) H 06/14/24 12:32 Ammonia 95 umol/L (16-60) H 06/14/24 05:39 Creatine Kinase 99 U/L (39-308) 06/13/24 04:37 Troponin T Baseline 12 ng/L (0-15) 06/12/24 08:50 Troponin T 120 Minute 6.79 ng/L (0-15) 06/12/24 11:10 Delta Troponin T -5.21 ABS# (0-10) L 06/12/24 11:10 Troponin T Hi Sens 6Hr 12.49 ng/L (0-15) 06/12/24 14:43 Troponin T Hi Sens 6Hr Delta 0.49 ng/L (0-12) 06/12/24 14:43 C-Reactive Protein 9.2 mg/L (0.0-4.9) H 06/14/24 04:50 NT-Pro-B Natriuret Pep 109 pg/mL (0-125) 06/14/24 04:50 Total Protein 8.0 g/dL (6.6-8.7) 06/14/24 12:32 Albumin 2.7 g/dL (3.5-5.2) L 06/14/24 12:32 Globulin 5.3 g/dL (1.3-4.6) H 06/14/24 12:32 Triglycerides 77 mg/dL (0-150) 06/12/24 14:43 Cholesterol 137 mg/dL (0-200) 06/12/24 14:43 LDL Cholesterol, Calc 82 mg/dL (50-129) 06/12/24 14:43 HDL Cholesterol 40 mg/dL (60-100) L 06/12/24 14:43 LDL/HDL Ratio 2.05 RATIO (0.00-3.22) 06/12/24 14:43 Cholesterol/HDL Ratio 3.43 mg/dL (1.0-5.00) 06/12/24 14:43 Procalcitonin 12.80 ng/mL (0-0.5) H 06/14/24 04:50 TSH 6.45 uIU/mL (0.27-4.20) H 06/14/24 04:50 Random Cortisol 11.77 ug/dL (2.47-19.5) 06/14/24 04:50 Urine Color Yellow (Yellow) 06/14/24 11:55 Urine Appearance Cloudy (CLEAR) A 06/14/24 11:55 Urine pH 5.0 (5-7) 06/14/24 11:55 Ur Specific [place] 1.037 (1.005-1.030) H 06/14/24 11:55 Urine Protein 1+ (Negative) A 06/14/24 11:55 Urine Glucose (UA) Negative (Normal) 06/14/24 11:55 Urine Ketones Trace (Negative) 06/14/24 11:55 Urine Blood 3+ (Negative) A 06/14/24 11:55 Urine Nitrate Negative (Negative) 06/14/24 11:55 Urine Bilirubin Negative (Negative) 06/14/24 11:55 Urine Urobilinogen 1.0 mg/dL (Negative) 06/14/24 11:55 Ur Leukocyte Esterase 2+ (Negative) A 06/14/24 11:55 Urine RBC >100 /hpf (0-2) H 06/14/24 11:55 Urine WBC >100 /hpf (0-5) H 06/14/24 11:55 Ur Squamous Epith Cells 6-10 /hpf (0-5) 06/14/24 11:55 Amorphous Sediment Not Reportable 06/14/24 11:55 Urine Bacteria 2+ /hpf (NONE) H 06/14/24 11:55 Hyaline Casts 32.68 /lpf 06/14/24 11:55 Ur Random Sodium < 10 mmol/L 06/14/24 11:55 Ur Random Potassium 15 mmol/L 06/14/24 11:55 Ur Random Chloride 25 mmol/L 06/14/24 11:55 Ur Random Chloride Cancelled 06/14/24 11:55 Urine Creatinine 181 mg/dL (39-259) 06/14/24 11:55 Ethyl Alcohol < 10 mg/dL (0-10) 06/12/24 08:50 Hepatitis C Antibody Non-reactive (Nonreactive) 06/14/24 04:50 Blood Type O Negative 06/12/24 11:10 Rho(D) Type Rh negative 06/12/24 11:10 Antibody Screen Negative 06/12/24 11:10 Crossmatch See Detail 06/12/24 11:10 Radiology Impressions Chest X-Ray 06/12/24 08:27 IMPRESSION: 1. Interstitial asymmetry in the RIGHT upper lobe with fullness in the RIGHT suprahilar and RIGHT paratracheal region. Recommend follow-up chest CT with IV contrast. Neoplasm and adenopathy need to be excluded. Pneumonia/pneumonitis also within the differential. 2. Suspect pulmonary hypertension. Pulmonary arteries are prominent. Chest CTA 06/12/24 08:59 IMPRESSION: 1. 3 cm right suprahilar mass concerning for malignancy. 2. Right hilar, pericardial, and mediastinal adenopathy concerning for metastatic adenopathy. 3. Multiple pulmonary micro nodules noted in the right lung apex. This could reflect lymphangitic carcinomatosis or a superimposed small airway infectious/inflammatory process. 4. Incidental note of gallbladder wall thickening cholelithiasis. Perihepatic fluid also noted. This could be reactive to fluid or reflect cholecystitis. 5. Splenomegaly. Head CT 06/12/24 17:17 IMPRESSION: 1. No acute intracranial abnormality. 2. Chronic superficial ulcer/wound of the left temporal scalp consider outpatient dermatologic evaluation to exclude a dermal neoplasm. Abdomen Ultrasound 06/12/24 17:22 IMPRESSION: 1. Cholelithiasis with nonspecific gallbladder wall thickening in the setting of cirrhosis. Consider correlation with biliary labs and nuclear medicine hepatobiliary scan. 2. Cirrhosis with small ascites. Flow is not appreciable within the main portal vein, which may be due to slow/static flow versus thrombosis. Consider follow-up dedicated CT of the abdomen with contrast when clinically appropriate. Recent Clincial Data Last Vital Signs Temp 98.0 F 06/14/24 05:30 Pulse 83 06/14/24 16:30 Resp 23 H 06/14/24 16:30 BP 141/74 06/14/24 16:30 Pulse Ox 97 06/14/24 14:30 O2 Del Method Room Air 06/14/24 08:47 Vital Signs Temp Pulse Resp BP Pulse Ox O2 Del Method O2 Del Method 06/14/24 16:30 83 23 H 141/74 06/14/24 16:00 83 28 H 06/14/24 15:30 83 21 H 129/65 06/14/24 15:00 89 14 122/83 06/14/24 14:30 82 17 101/81 97 06/14/24 14:00 77 12 122/67 98 06/14/24 13:30 78 14 96 06/14/24 13:00 81 17 98 06/14/24 12:30 126/77 06/14/24 12:00 126/77 06/14/24 11:30 80 16 125/68 06/14/24 11:00 80 16 134/50 94 06/14/24 10:30 92 20 H 154/67 90 06/14/24 10:00 77 15 157/98 99 06/14/24 09:30 80 12 107/93 99 06/14/24 09:00 81 13 134/71 100 06/14/24 08:47 78 98 Room Air 06/14/24 08:30 81 10 L 112/68 98 06/14/24 08:19 112/68 98 06/14/24 08:00 88 12 126/56 95 06/14/24 07:30 78 12 126/56 97 06/14/24 07:00 78 16 120/67 06/14/24 06:00 86 11 L 122/51 99 Room Air 06/14/24 06:00 92 06/14/24 05:30 98.0 F 86 18 122/51 92 Room Air Intake & Output/Weight 06/12/24 06/13/24 06/14/24 06/15/24 06:59 06:59 06:59 06:59 Intake Total 1600 / 1600 1850 / 1850 710 / 710 Output Total 125 / 125 Balance 1600 / 1600 1725 / 1725 710 / 710 Weight 86.409 kg 89.018 kg Vitals Last Vital Signs Temp 98.0 F 06/14/24 05:30 Pulse 83 06/14/24 16:30 Resp 23 H 06/14/24 16:30 BP 141/74 06/14/24 16:30 Pulse Ox 97 06/14/24 14:30 O2 Del Method Room Air 06/14/24 08:47 TS Medications Medications Acetaminophen (Acetaminophen 325 Mg Tablet) 650 mg PO Q6H PRN PRN Reason: Mild/Mod Pain Or Temp >/= 101 Last Admin: 06/12/24 21:34 Dose: 650 mg Octreotide Acetate 500 mcg/ (Sodium Chloride) 101 mls @ 10.1 mls/hr IV .Q10H [facility] Last Admin: 06/14/24 11:13 Dose: 50 mcg/hr, 10.1 mls/hr Albumin Human (Albumin) 25 g in 100 mls @ 60 mls/hr IV Q8H [facility] Last Admin: 06/14/24 11:13 Dose: 60 mls/hr Lactulose (Lactulose Oral Liq 20 Gm/30 Ml Udc) 20 gm PO Q6H [facility] Last Admin: 06/14/24 11:13 Dose: 20 gm Magnesium Oxide (Magnesium Oxide 400 Mg Tablet) 400 mg PO BID [facility] Last Admin: 06/14/24 11:13 Dose: 400 mg Meropenem (Meropenem 1,000 Mg Sdv) 1,000 mg IVP Q12H [facility]; Protocol Last Admin: 06/14/24 08:29 Dose: 1,000 mg Morphine Sulfate (Morphine 4 Mg/Ml Sdv 1 Ml) 2 mg IVP Q4H PRN PRN Reason: SEVERE PAIN Last Admin: 06/12/24 22:09 Dose: 2 mg Naloxone HCl (Naloxone 0.4 Mg/Ml Sdv) 0.1 mg IVP Q2M PRN PRN Reason: OPIATERV Ondansetron HCl (Ondansetron 2 Mg/Ml Sdv 2 Ml) 4 mg IVP Q8H PRN PRN Reason: vomiting, or N/V if npo Pantoprazole Sodium (Pantoprazole 40 Mg Sdv) 40 mg IVP Q12H [facility] Last Admin: 06/14/24 05:52 Dose: 40 mg Rifaximin (Rifaximin 200 Mg Tablet) 600 mg PO BID@ [facility] Sodium Chloride (Sodium Chloride 0.9% 100 Ml Bag) 50 ml IV PRN PRN PRN Reason: Blood transfusion prime and flush Stop: 06/15/24 06:39 Sucralfate (Sucralfate 1 Gm Tablet) 1 gm PO Q12H [facility] Last Admin: 06/14/24 05:52 Dose: 1 gm Discontinued Medications Duloxetine HCl (Duloxetine 30 Mg Capsule) 30 mg PO DAILY@08 [facility] Last Admin: 06/14/24 08:29 Dose: 30 mg Lactated Ringer's (Lactated Ringers) 1,000 mls @ 999 mls/hr IV .Q1H1M ONE Stop: 06/12/24 10:54 Last Admin: 06/12/24 13:08 Dose: Not Given Lactated Ringer's (Lactated Ringers) 1,000 mls @ 999 mls/hr IV .Q1H1M ONE Stop: 06/12/24 14:07 Last Infusion: 06/12/24 14:11 Dose: Infused Potassium Chloride (K-Lane) 100 mls @ 25 mls/hr IV ONCE ONE Stop: 06/12/24 20:26 Last Infusion: 06/12/24 21:49 Dose: Infused Sodium Chloride (Sodium Chloride 0.9%) 1,000 mls @ 75 mls/hr IV .[id number] [facility] Last Admin: 06/13/24 09:07 Dose: 75 mls/hr Sodium Bicarbonate 50 meq/ (Sodium Chloride) 1,050 mls @ 100 mls/hr IV .[id number] [facility] Last Admin: 06/14/24 03:29 Dose: 100 mls/hr Iohexol (Iohexol 350 Mg/Ml 500 Ml Btl (Per Ml)) 0 ml IV ONCE ONE Stop: 06/12/24 15:16 Last Admin: 06/12/24 15:16 Dose: 50 ml Lactulose (Lactulose Oral Liq 20 Gm/30 Ml Udc) 20 gm PO Q8H [facility] Last Admin: 06/13/24 11:08 Dose: 20 gm Potassium Chloride (Potassium Chloride Er 20 Meq Tablet) 40 meq PO ONCE ONE Stop: 06/13/24 14:51 Last Admin: 06/13/24 16:58 Dose: 40 meq Potassium Chloride (Potassium Chloride Er 20 Meq Tablet) 40 meq PO ONCE ONE Stop: 06/14/24 08:08 Last Admin: 06/14/24 08:29 Dose: 40 meq Potassium Chloride (Potassium Chloride Er 20 Meq Tablet) 40 meq PO ONCE ONE Stop: 06/14/24 08:52 Last Admin: 06/14/24 11:58 Dose: Not Given Allergies azithromycin Allergy (Verified 12/15/23 08:59) ALGY-Anaphylaxis Penicillins Allergy (Verified 12/15/23 08:59) Unknown Home Medications potassium chloride 10 mEq tablet,extended release 10 meq PO DAILY@08 09/11/23 [History Confirmed 06/12/24] pantoprazole 40 mg tablet,delayed release 40 mg PO DAILY@06 10/20/23 [History Confirmed 06/12/24] acetazolamide 250 mg tablet 250 mg PO DAILY@08 11/02/23 [History Confirmed 06/12/24] duloxetine 30 mg capsule,delayed release 30 mg PO DAILY@08 12/15/23 [History Confirmed 06/12/24] furosemide 40 mg tablet 40 mg PO BID@08,12/15/23 [History Confirmed 06/12/24] rifaximin 550 mg tablet (Xifaxan) 550 mg PO BID@08,12/15/23 [History Confirmed 06/12/24] tramadol 50 mg tablet 50 mg PO TID@08,14,20 12/15/23 [History Confirmed 06/12/24] lactulose 10 gram/15 mL oral solution 30 ml PO TID 01/23/24 [History Confirmed 06/12/24] spironolactone 100 mg tablet 100 mg PO DAILY 06/12/24 [History Confirmed 06/12/24] Discharge Plan Discharge Condition: Stable Prescriptions: No Action acetazolamide 250 mg tablet 250 mg PO DAILY@08 potassium chloride 10 mEq tablet extended release 10 meq PO DAILY@08 furosemide 40 mg Tablet 40 mg PO BID@08,20 tramadol 50 mg tablet 50 mg PO TID@08,14,20 duloxetine 30 mg capsule,delayed release(DR/EC) 30 mg PO DAILY@08 Xifaxan 550 mg tablet 550 mg PO BID@08,20 lactulose 10 gram/15 mL solution 30 ml PO TID spironolactone 100 mg tablet 100 mg PO DAILY pantoprazole 40 mg tablet,delayed release (DR/EC) 40 mg PO DAILY@06 Referrals: Elizabeth Gagnon MD [Primary Care Provider] - Patient Instructions: Opioid Safety Transfer Attestations Time Spent in Transfer Care: greater than 30 min Status at Transfer: Behavioral status at transfer: cooperative; Quality Metrics Clinical Quality Measures [ No reported AMI, CVA or VTE this stay] Coding Level of Care Code Acute Code for Chg Fwd Diagnoses Acute encephalopathy G93.40 Acute hyponatremia E87.1 Hepatic encephalopathy K76.82 Alcoholic cirrhosis K70.30 Liver cirrhosis K74.60 Acute on chronic anemia D64.9 Acute renal failure, unspecified acute renal failure type N17.9 Acute renal failure type: unspecified Hilar mass R91.8 Mediastinal adenopathy R59.0 Cholelithiasis K80.20
[2024-06-15 13:20] LABS: Osmolality Urine 329 mOsm/kg (50-1200)
[2024-06-16 16:00] LABS: Anti-Nuclear Antibody Screen NEGATIVE (NEGATIVE)
== END 2024-06-14 20:33 | disposition short-term general hospital (02) | DRG 441 ==
LOC: ER 10:47 → ICU 18:07
PROVIDERS: Internal Medicine Nephrology; Admitting Provider Family Medicine; Emergency Provider Family Medicine; PCP Family Medicine; Visit Provider Family Medicine
DX: K76.82 Hepatic encephalopathy (principal); I81 Portal vein thrombosis; K76.7 Hepatorenal syndrome; E87.1 Hypo-osmolality and hyponatremia; N17.9 Acute kidney failure, unspecified; I50.30 Unspecified diastolic (congestive) heart failure; E87.20 Acidosis, unspecified; E86.0 Dehydration; K70.31 Alcoholic cirrhosis of liver with ascites; D64.89 Other specified anemias; N14.11 Contrast-induced nephropathy; R91.8 Other nonspecific abnormal finding of lung field; R59.0 Localized enlarged lymph nodes; K80.20 Calculus of gallbladder without cholecystitis without obstruction; F17.200 Nicotine dependence, unspecified, uncomplicated; D69.6 Thrombocytopenia, unspecified; E86.1 Hypovolemia
CPT/HCPCS: 36415; 36430; 36592; 36600; 51702; 70450; 71045; 71275; 76705; 80048; 80051; 80053; 80061; 80307; 81001; 82140; 82274; 82330; 82436; 82533; 82550; 82570; 82728; 82805; 83036; 83540; 83550; 83605; 83735; 83880; 83935; 84100; 84133; 84145; 84295; 84300; 84443; 84484; 85014; 85018; 85025; 85610; 86038; 86140; 86803; 86850; 86900; 86920; 87040; 87086; 93005; 94664; 96365; 96366; 96374; 96375; 96376; 97162; 97167; 97530; 99285; 99291; J2185; J2270; J2354; J2470; J3480; J7030; J7120; P9016; P9046; Q3014